=== PATIENT | male | born 1945 | race Caucasian/White ===

== ENCOUNTER → 2024-08-12 | Outpatient (CLI) | payer MEDICARE, BC, SELFPAY ==
[2024-08-12 12:01] LABS: Basophils # (Auto) 0.1 Thou/mm3 (0.0-0.2); Basophils % (Auto) 1 % (0-2.5); Eosinophils # (Auto) 0.2 Thou/mm3 (0.0-0.5); Eosinophils % (Auto) 3 % (0-10); Hematocrit 39.2 % (41.0-53.0); Hemoglobin 13.5 g/dL (13.5-16.0); Immature Granulocytes % (Auto) 0 % (0-0); Immature Granulocytes Auto 0.01 Thou/mm3 (0.00-0.00); Lymphocytes # (Auto) 1.1 Thou/mm3 (1.0-4.8); Lymphocytes % (Auto) 25 % (10-50); Mean Corpuscular HGB Conc 34.4 g/dl (31.0-37.0); Mean Corpuscular Hemoglobin 34.7 pg (25.0-35.0); Mean Corpuscular Volume 101 fL (80-100); Monocytes # (Auto) 0.6 Thou/mm3 (0.0-0.8); Monocytes % (Auto) 14 % (0-12); Neutrophils # (Auto) 2.5 Thou/mm3 (1.8-7.7); Neutrophils % (Auto) 56 % (37-80); Nucleated Red Blood Cell % 0 /100 WBC (0); Platelet Count 149 Thou/mm3 (140-440); RDW Standard Deviation 46.9 fL (35.1-43.9); Red Blood Count 3.89 Miln/mm3 (4.50-5.90); White Blood Count 4.5 Thou/mm3 (3.8-10.6)
[2024-08-12 12:05] LABS: Glucose Estimated Average 111 mg/dL (80-131); Hemoglobin A1C 5.5 % Hgb (4.8-6.0)
[2024-08-12 12:14] LABS: Alanine Aminotransferase 26 U/L (10-49); Albumin, Serum 4.4 gm/dL (3.4-4.8); Albumin/Globulin Ratio 1.6 (1.2-2.2); Alkaline Phosphatase 57 U/L (46-116); Anion Gap 5 (7-16); Aspartate Amino Transferase 27 U/L (0-34); BUN/Creatinine Ratio 18 Ratio (12-20); Bilirubin,Total 0.9 mg/dL (0.3-1.2); Blood Urea Nitrogen 21 mg/dL (9-23); C-Reactive Protein < 0.4 mg/dL (0.0-0.9); Calcium 9.5 mg/dL (8.3-10.6); Calcium (Corrected) 9.5 mg/dL (8.5-10.1); Carbon Dioxide 31.1 mMol/L (20.0-31.0); Cardiac Risk Estimate 2.4 RATIO (4.0-6.7); Chloride 105 mMol/L (98-107); Cholesterol 88 mg/dL (132-200); Creatinine (Component) 1.2 mg/dL (0.6-1.3); Globulin 2.8 gm/dL (2.3-3.5); Glucose 119 mg/dL (74-106); HDL Cholesterol 36 mg/dL (40-60); LDL Cholesterol,Calculated 40 mg/dL (0-130); Osmolality,Calculated 285 (275-295); Potassium 4.8 mMol/L (3.4-5.1); Sodium 141 mMol/L (136-145); Total Protein 7.2 gm/dL (5.7-8.2); Triglycerides 59 mg/dL (30-150); eGFR > 60 See Note
[2024-08-12 12:16] LABS: Sed Rate (ESR) 6 mm/hr (0-20)
[2024-08-12 20:31] LABS: Prostate Specific Antigen 5.62 ng/mL (0-4.00)
== END | disposition home or self-care (01) ==
PROVIDERS: PCP Family Medicine; Referring Provider Family Medicine; Visit Provider Family Medicine
DX: M35.3 Polymyalgia rheumatica (principal); I10 Essential (primary) hypertension; R97.20 Elevated prostate specific antigen [PSA]
CPT/HCPCS: 36415; 80053; 80061; 83036; 84153; 85025; 85652; 86140

== ENCOUNTER → 2024-10-21 | Outpatient (BNVA) | payer MEDICARE, BC, SELFPAY | END | disposition home or self-care (01) | PROVIDERS: PCP Family Medicine; Referring Provider Family Medicine; Visit Provider Urology | DX: N40.1 Benign prostatic hyperplasia with lower urinary tract symptoms (principal); N13.8 Other obstructive and reflux uropathy; R97.20 Elevated prostate specific antigen [PSA]; I48.19 Other persistent atrial fibrillation; I10 Essential (primary) hypertension; I63.9 Cerebral infarction, unspecified; R73.9 Hyperglycemia, unspecified; M35.3 Polymyalgia rheumatica; Z87.440 Personal history of urinary (tract) infections; E66.9 Obesity, unspecified; Z68.27 Body mass index [BMI] 27.0-27.9, adult; F17.290 Nicotine dependence, other tobacco product, uncomplicated | CPT/HCPCS: 81003; 99212; G0463 ==

== ENCOUNTER → 2025-01-06 | Outpatient (CLI) | payer MEDICARE, BC, SELFPAY ==
[2025-01-10 15:35] LABS: PSA, Total 5.8 ng/mL (< OR = 4.0)
[2025-01-11 07:08] LABS: PSA, % Free 16 % (calc) (>25)
== END | disposition home or self-care (01) ==
LOC: COPL 07:16
PROVIDERS: PCP Family Medicine; Referring Provider Family Medicine; Visit Provider Urology
DX: R97.20 Elevated prostate specific antigen [PSA] (principal)
CPT/HCPCS: 36415; 84153; 84154

== ENCOUNTER → 2025-01-18 | Outpatient (BNVA) | payer MEDICARE, BC, SELFPAY | END | disposition home or self-care (01) | PROVIDERS: PCP Family Medicine; Referring Provider Family Medicine; Visit Provider Urology | DX: N40.1 Benign prostatic hyperplasia with lower urinary tract symptoms (principal); N13.8 Other obstructive and reflux uropathy; R97.20 Elevated prostate specific antigen [PSA]; I48.19 Other persistent atrial fibrillation; I10 Essential (primary) hypertension; I63.9 Cerebral infarction, unspecified; M35.3 Polymyalgia rheumatica; F17.210 Nicotine dependence, cigarettes, uncomplicated; E11.9 Type 2 diabetes mellitus without complications | CPT/HCPCS: 81003; 99212; G0463 ==

== ENCOUNTER → 2025-02-04 | Outpatient (BNVA) | payer MEDICARE, SELFPAY | END | disposition home or self-care (01) | PROVIDERS: PCP Family Medicine; Referring Provider Family Medicine; Visit Provider Physician Assistant | DX: N40.0 Benign prostatic hyperplasia without lower urinary tract symptoms (principal); R97.20 Elevated prostate specific antigen [PSA]; I10 Essential (primary) hypertension; I48.91 Unspecified atrial fibrillation; E11.9 Type 2 diabetes mellitus without complications; Z86.73 Personal history of transient ischemic attack (TIA), and cerebral infarction without residual deficits; F17.210 Nicotine dependence, cigarettes, uncomplicated | CPT/HCPCS: 99212; G0463 ==

== ENCOUNTER 2025-03-05 12:26 | Inpatient (IN) | payer MEDICARE, SELFPAY ==
[2025-03-05] VITALS (15 sets, daily range): BP systolic 95–140; BP diastolic 52–88; PULSE 85–118; RESP 15–100; TEMP 36.5–37.1; O2SAT 96–100; BMI 27.7
--- NOTE | 2025-03-05 12:50 | PC.NURSE ---
PATIENT ARRIVED ED VIA EMS SECONDARY TO WEAKNESS. PER FAMILY PATIENT WENT TO BED LAST NIGHT WITH NO COMPLAINTS, AT APPROX 8AM THIS MORNING PATIENT WAS FOUND IN BED INCONTINENT AND NOT ABLE TO WALK DUE TO WEAKNESS. UPON ARRIVAL TO ED PATIENT ABLE TO ANSWER APPROPRIATE QUESTIONS AND STATES HE FEELS TIRED. PATIENT IS SLOW TO RESPOND TO INSTRUCTIONS. AT BEDSIDE STATES PATIENT IS NOT HIS NORMAL SELF . DR. GRANT AT BEDSIDE TO PERFORM ASSESSMENT. STOKE ALERT CALLED AND PATIENT TAKEN TO CT VIA GURNEY WITH NEURO CART. NEUROLOGIST CONDUCTED EXAM WHILE IN CT AND DEFERRED R/O STROKE DUE TO PATIENT ABILITY TO FOLLOW INSTRUCTIONS WITH SOME DIFFICULTY. PATIENT TAKEN BACK TO ED. FAMILY REMAINS AT BEDSIDE. WILL CONTINUE TO MONITOR
--- NOTE | 2025-03-05 13:06 | XR_ITS ---
Examination: AP chest single view Technique one AP portable semiupright chest single view Date and time: March 05, 2025 1333 hours Comparison March 19, 2023 INDICATIONS: Focal neurologic deficit, stroke alert today FINDINGS: Mild prominence of ventricle. No aspiration pneumonia. No pulmonary edema. Old fracture left seventh rib posteriorly IMPRESSION: Negative for aspiration pneumonia
--- NOTE | 2025-03-05 13:06 | XR_ITS ---
Examination: CT brain head without contrast. 2-D sagittal coronal reconstructions Date and time of exam:March 05, 2025 1317 hours Comparison April 29, 2018 INDICATIONS: Stroke alert, onset focal neurologic deficit slurred speech generalized body weakness beginning 8:00 AM this morning CTDI: vol (mGy):53 DLP: (mGycm):1099 Technique: Multiple CT axial sections of the brain have been obtained, 5 mm slice thickness. Contrast has not been administered. 2-D sagittal, coronal reconstructions have been obtained Low dose protocols were performed. One or more of the following dose reduction techniques were used; automated exposure control, adjustment of the mA and/or KV according to patient size, use of iterative reconstruction technique. Findings: No significant ventricular enlargement. Intra-axial or extra-axial hemorrhage density is not seen. No mass effect or midline shift Basal cisterns are not remarkable. Fourth ventricle is midline. Cranial vault intact. Impression: Negative for acute hemorrhage, mass effect or midline shift
--- NOTE | 2025-03-05 13:06 | EKG_ITS ---
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: : 1945 Requested By: Anup Christopher Order Number: [id number] Reading MD: Anup Christopher Measurements Intervals [place] Rate: 106 P: MS: QRS: 39 QRSD: 92 T: -84 QT: 307 QTc: 408 Interpretive Statements ATRIAL FIBRILLATION WITH RAPID VENTRICULAR RESPONSE WITH ABERRANT CONDUCTION OR VENTRICULAR PREMATURE COMPLEXES ST DEVIATION AND MODERATE T-WAVE ABNORMALITY, CONSIDER INFERIOR ISCHEMIA [-0.1+ mV T-WAVE IN II/aVF] Compared to ECG 05/02/2018 09:51:33 Ventricular premature complex(es) now present Aberrant conduction of supraventricular beat(s) now present Possible ischemia now present T-wave abnormality still present /store/S0/[id number]/ecg/[id number].pdf
--- NOTE | 2025-03-05 13:11 | PC.NURSE ---
STROKE ALERT @ 0668 telecart activated @2073 case# [id number]
--- NOTE | 2025-03-05 13:20 | PD.EDADULT ---
ED General RME/HPI General Chief complaint: Altered Mental Status Stated complaint: WEAKNESS Time Seen by Provider: 03/05/25 13:06 Arrival date/time: 03/05/25 12:26 RME / HPI RME / HPI narrative: DR. CHRISTOPHER MAIN ED EVALUATION: 79-year-old male with past medical history of atrial fibrillation (on Xarelto), hypertension, and polymyalgia rheumatica (on prednisone) presents with generalized weakness and difficulty speaking. Denies falls, injuries, fever, or loss of consciousness. Related Data Home Medications ?Medication ?Instructions ?Recorded ?Confirmed benazepril 40 mg tablet 40 mg PO QDAY 04/30/18 03/05/25 clonidine HCl 0.2 mg tablet 0.2 mg PO TID 04/30/18 03/05/25 rivaroxaban 15 mg tablet (Xarelto) 15 mg PO QDAY 04/30/18 03/05/25 digoxin 125 mcg (0.125 mg) tablet 0.125 mg PO QDAY 03/05/25 03/05/25 furosemide 20 mg tablet 20 mg PO QDAY 03/05/25 03/05/25 Previous Rx's ?Medication ?Instructions ?Recorded atorvastatin 40 mg tablet 40 mg PO HS #30 tabs 05/04/18 Allergies Allergy/AdvReac Type Severity Reaction Status Date / Time No Known Allergies Allergy Verified 02/04/25 10:02 Review of Systems Review of Systems Systems Reviewed: All systems reviewed, normal except as documented Past Medical History Past Medical History NEUROLOGIC: Positive Neurological Disorders CARDIAC: Positive Atrial Fibrillation and Hypertension ENDOCRINE: Positive Diabetes Mellitus Type 2 Social History SMOKING STATUS: Current some day smoker SUBSTANCE USE: does not use ED Exam Narrative Physical exam: Physical Exam: General: The vital signs were reviewed. Patient appears pale diffusely weak no obvious focal deficits responds to questions in a very slow fashion. Patient has generalized flattening of his affect. in no apparent distress and appears healthy with a patent airway, no respiratory distress and has no apparent circulatory problems. Head & Scalp: Normocephalic, atraumatic. Face: Appears normal and is without lesions, deformity. Ears: Left external pinna appears normal. Right external pinna appears normal. Eyes: The sclera is anicteric. No obvious photophobia. The Left and Right Orbit/Lid/Conjunctiva appears normal without swelling, discoloration or injection. Nose: The nose is without deformity, discharge or tenderness; Throat: Appears normal. The mucous membranes are pink and moist without exudates, redness or mass seen. The tongue appears normal. Neck: The neck is supple and no apparent mass or adenopathy. Chest: The chest wall is normal in size and symmetry and has no chest wall tenderness or crepitus. The patient displays normal ventilator effort without retractions, accessory muscle use and has adequate air movement bilaterally with no wheezes and no rales. Cardiovascular: Regular rate and rhythm; No murmurs, rubs, or gallops; Gastrointestinal: The abdomen appears normal. No obvious hernias or mass. The abdomen is soft and benign, non-distended, with no pain, no guarding and no rebound tenderness. Bowel sounds are present and normal sounding. No CVA tenderness. Rectal: Rectal exam, nurse interior paneler present at bedside, shows black stools, guaiac positive. Genitourinary: Back/Spine: Normal inspection Extremities/Musculoskeletal/lymphatic: The bilateral upper and lower extremities are warm. There is no evidence of arterial insufficiency. There is no evidence of venous insufficiency/edema. The patient spontaneously moves bilateral upper and lower extremities slowly with no obvious focal deficit. There is no apparent, injury or trauma. Skin: The skin is warm, dry and intact. No rashes. No petechia. No purpura. No abnormal bruising. The color is appropriate with no cyanosis. Mental status/Psychiatric: Mental status is appropriate for age. The patient has no apparent delusions, visual hallucinations, no apparent audible hallucinations. The patient has no apparent suicidal thoughts/ideation and no apparent homicidal thoughts/ideation. Neurological: The patient is awake, alert, interactive, cordial, cooperative and is oriented to name and situation. The patient follows commands and answers historical question with no impairment. There is no visual disturbance apparent. The pupils are equal and reactive bilaterally with normal eye movements and no diplopia The bilateral upper and lower extremities have normal strength, normal range of motion and normal functioning. The gait, station and balance not tested due to acute Course Course Course Narrative: 1306: Stroke alert initiated. Orders made at this time are congruent stroke protocol. Quality Measures none Orders Category Date Time Status Bedside Blood Glucose NOW Care 03/05/25 13:06 Active Aerial Applicator Pilot NOW Care 03/05/25 13:06 Active Continuous Pulse Oximetry NOW Care 03/05/25 13:06 Completed EKG (ED ONLY) *Do not use* NOW Care 03/05/25 13:06 Completed In and Out Catheter NEEDED Care 03/05/25 13:06 Active Insert IV NOW Care 03/05/25 13:06 Completed Miscellaneous Nursing Order NOW Care 03/05/25 14:39 Active NIH Stroke Scale now Care 03/05/25 13:06 Active NPO NOW Care 03/05/25 13:06 Active Neuro Check Q15MIN Care 03/05/25 13:06 Completed Nurse Swallow Screen x1 Care 03/05/25 13:06 Active Transfuse,blood/blood products NOW Care 03/05/25 14:28 Active Consult to Gastroenterology Stat Cons 03/05/25 14:37 Ordered Consult to Neurology / Tele-Neurology Routine Cons 03/05/25 13:[address] angio stroke protocol Stat Exams 03/05/25 13:[address] stroke protocol Stat Exams 03/05/25 13:06 Completed EKG (ED Only) Stat Exams 03/05/25 13:06 Draft XR chest 1V portable Stat Exams 03/05/25 13:06 Completed Blood Culture (Lab) Stat Lab 03/05/25 13:53 Received CBC Stat Lab 03/05/25 13:17 Completed Comprehensive Metabolic Panel Stat Lab 03/05/25 13:17 Completed Drug Screen,Urine Stat Lab 03/05/25 13:06 Ordered HCG Titer if Positive Stat Lab 03/05/25 13:17 Completed Lactate (Lactic Acid) Stat Lab 03/05/25 13:17 Completed Magnesium Stat Lab 03/05/25 13:17 Completed Partial Thromboplastin Time Stat Lab 03/05/25 13:17 Completed Path Review Blood Smear Stat Lab 03/05/25 13:17 Completed Prothrombin Time with INR Stat Lab 03/05/25 13:17 Completed Red Blood Cells Stat Lab 03/05/25 14:01 Results Troponin I Stat Lab 03/05/25 13:17 Completed Type and Screen Stat Lab 03/05/25 14:01 Results Urinalysis Stat Lab 03/05/25 13:06 Ordered Urine Culture Stat Lab 03/05/25 13:06 Ordered Venous Blood Gas Stat Lab 03/05/25 13:17 Completed Ondansetron Inj [Zofran Inj] Med 03/05/25 13:06 Active 4 mg IVP Q4HR PRN Pantoprazole Inj [Protonix Inj] Med 03/05/25 14:36 Discontinued 40 mg IVP X1 ONE Phytonadione Inj [Vitamin K Inj] Med 03/05/25 14:28 Discontinued 10 mg SC X1 ONE Sodium Chloride 0.9% 1000 ml [Ns] 1,000 ml Med 03/05/25 13:15 Active IV Q10H Oxygen Delivery NOW RT 03/05/25 13:06 Active Vital Signs Vital signs: Vital Signs Temperature 97.7 F 03/05/25 12:31 Pulse Rate 96 03/05/25 12:31 Respiratory Rate 16 03/05/25 12:31 Blood Pressure 95/63 03/05/25 12:31 Pulse Oximetry (%) 98 03/05/25 12:31 Oxygen Delivery Method Room Air 03/05/25 12:31 Discharge Plan Plan Patient Disposition: Admit Acute Care w/in Hospital Discharge Disposition comment: Hospitalist admit Dr. Bauer to consult Problem List Clinical Impression: Altered mental status, Severe anemia, GI (gastrointestinal bleed), Acute kidney injury, Acute prerenal azotemia MDM Narrative [facility] hospital course: I, Ana Gray, am scribing for and in the presence of Dr. Christopher. Patient has acute onset of some neurological symptoms but the symptoms appear to be global and stroke alert was called with the neurologist agreed. Soon after that the hemoglobin came back at 5.7 and note 7 months ago was 13.5 so have a serious anemia at this time. PT is 14.6 INR is 1.4 also on his CMP he is got a BUN 85 creatinine 2.1 consistent with acute kidney injury or renal failure he is also very dry I was mildly at 313. Chest x-ray came back negative no infiltrates no effusion normal head CT was negative. Patient says a severe anemia etiology unclear there is no history of any blood loss or blood in the stool per family or patient Clinical Information Provided by patient and EMS Medical Records [facility] and EMS Meds/Rx Considered, not Ordered None Labs/Rad/Tests considered, not Ordered None Chronic Illness/Social Conditions Add or document further as needed: atrial fibrillation (on Xarelto), hypertension, and polymyalgia rheumatica (on prednisone) EKG EKG Interpretation narrative: My interpretation: EKG performed at 1331 hours, atrial fibrillation, rate 106, no STEMI Lab Interpretation Labs: see narrative above Imaging Imaging interpretation: see narrative above Radiology reports / interpretation(s): Procedure(s): XR chest 1V portable Accession Number(s): [id number] cc: Anup Christopher MD; Emeterio Perla MD~ Examination: AP chest single view Technique one AP portable semiupright chest single view Date and time: March 05, 2025 1333 hours Comparison March 19, 2023 INDICATIONS: Focal neurologic deficit, stroke alert today FINDINGS: Mild prominence of ventricle. No aspiration pneumonia. No pulmonary edema. Old fracture left seventh rib posteriorly IMPRESSION: Negative for aspiration pneumonia Dictated By: Emeterio Perla MD Procedure(s): CT stroke protocol Accession Number(s): [id number] cc: Anup Christopher MD; Emeterio Perla MD~ Examination: CT brain head without contrast. 2-D sagittal coronal reconstructions Date and time of exam:March 05, 2025 1317 hours Comparison April 29, 2018 INDICATIONS: Stroke alert, onset focal neurologic deficit slurred speech generalized body weakness beginning 8:00 AM this morning CTDI: vol (mGy):53 DLP: (mGycm):1099 Technique: Multiple CT axial sections of the brain have been obtained, 5 mm slice thickness. Contrast has not been administered. 2-D sagittal, coronal reconstructions have been obtained Low dose protocols were performed. One or more of the following dose reduction techniques were used; automated exposure control, adjustment of the mA and/or KV according to patient size, use of iterative reconstruction technique. Findings: No significant ventricular enlargement. Intra-axial or extra-axial hemorrhage density is not seen. No mass effect or midline shift Basal cisterns are not remarkable. Fourth ventricle is midline. Cranial vault intact. Impression: Negative for acute hemorrhage, mass effect or midline shift Dictated By: Emeterio Perla MD Medication Administration(s) Medication Administration History Acetaminophen (Acetaminophen 325 Mg Tablet) 650 mg PO Q6H PRN PRN Reason: Fever >101.5 or pain (1-3) Stop: 04/04/25 15:27 Atorvastatin Calcium (Atorvastatin Calcium 20 Mg Tablet) 40 mg PO HS CLAUDE Stop: 04/04/25 20:59 Digoxin (Digoxin 0.125 Mg Tablet) 0.125 mg PO QDAY CLAUDE Stop: 04/04/25 15:44 Sodium Chloride (Ns) 1,000 mls @ 100 mls/hr IV Q10H CLAUDE Stop: 04/04/25 13:14 Last Admin: 03/05/25 14:09 Dose: 100 mls/hr Documented By: PATRICK Pantoprazole Sodium (Protonix/Ns 80mg Iv Premix) 80 mg in 100 mls @ 10 mls/hr IV Q10H CLAUDE Stop: 03/08/25 13:35 Last Admin: 03/05/25 15:44 Dose: 10 mls/hr Documented By: PATIRCK Ondansetron HCl (Ondansetron Inj 2 Mg/Ml Inj 2 Ml) 4 mg IVP Q4HR PRN PRN Reason: NAUSEA OR VOMITING Stop: 04/04/25 13:05 Discontinued Medications Pantoprazole Sodium (Pantoprazole Inj 40 Mg Vial) 40 mg IVP X1 ONE Stop: 03/05/25 14:37 Last Admin: 03/05/25 15:14 Dose: 40 mg Documented By: PATRICK Phytonadione (Phytonadione Inj 10 Mg/Ml Amp) 10 mg SC X1 ONE Stop: 03/05/25 14:29 Last Admin: 03/05/25 15:41 Dose: Not Given Documented By: PATRICK Non-Admin Reason: Cancelled by Provider Consultations/Discussions re: Management Consult #1: Date/time: 03/05/25 2:51 pm Physician, specialty, service, details: Discussed test HPI, PMHx, lab, radiology results and/or management with Dr. Bauer. Will consult an admission to the hospitalist. Consult #2: Date/time: 03/05/25 2:57 pm Physician, specialty, service, details: Discussed test HPI, PMHx, lab, radiology results and/or management with resident working with the hospitalist. Will admit for further evaluation and management. Accepts patient for admission. Diagnosis Differential diagnosis: ischemic stroke, transient ischemic attack, intracranial hemorrhage Most likely dx, and/or detailed dx discussion: AMS Severe anemia GI bleed VANNA Acute prerenal azotemia Dispositon Disposition: Admit
[2025-03-05 13:27] LABS: Lactate (Lactic Acid) 1.4 mMol/L (0.4-2.0)
[2025-03-05 13:28] LABS: Base Excess, Venous -3 (-3-3); O2 Saturation, Venous 55 % (96-97); PCO2, Venous 36 mmHg (36-56); PO2, Venous 31 mmHg (15-58); pH, Venous 7.39 (7.33-7.66)
[2025-03-05 13:35] LABS: Basophils # (Auto) 0.0 Thou/mm3 (0.0-0.2); Basophils % (Auto) 1 % (0-2.5); Eosinophils # (Auto) 0.0 Thou/mm3 (0.0-0.5); Eosinophils % (Auto) 1 % (0-10); Immature Granulocytes Auto 0.09 Thou/mm3 (0.00-0.00); Lymphocytes # (Auto) 0.8 Thou/mm3 (1.0-4.8); Lymphocytes % (Auto) 14 % (10-50); Mean Corpuscular HGB Conc 33.1 g/dl (31.0-37.0); Mean Corpuscular Hemoglobin 36.1 pg (25.0-35.0); Mean Corpuscular Volume 109 fL (80-100); Monocytes # (Auto) 0.6 Thou/mm3 (0.0-0.8); Monocytes % (Auto) 11 % (0-12); Neutrophils # (Auto) 4.2 Thou/mm3 (1.8-7.7); Neutrophils % (Auto) 73 % (37-80); Nucleated Red Blood Cell # 0.00 Thou/mm3 (0.00-0.00); Nucleated Red Blood Cell % 0 /100 WBC (0); Platelet Count 174 Thou/mm3 (140-440); RDW Standard Deviation 63.5 fL (35.1-43.9); Red Blood Count 1.58 Miln/mm3 (4.50-5.90); White Blood Count 5.8 Thou/mm3 (3.8-10.6)
[2025-03-05 13:37] LABS: Hematocrit 17.2 % (41.0-53.0); Hemoglobin 5.7 g/dL (13.5-16.0)
--- NOTE | 2025-03-05 13:41 | ESCONSULT_ITS ---
Tele Neuro Consultation Consultation Date 03/05/25 Most Recent Vital Signs Last Vital Signs Temp 97.7 F 03/05/25 12:31 Pulse 96 03/05/25 12:31 Resp 16 03/05/25 12:31 BP 95/63 03/05/25 12:31 Pulse Ox 98 03/05/25 12:31 O2 Del Method Room Air 03/05/25 12:31 Consultation Narrative [facility] Tele[facility]urology Consult Services Patient Name:???Devan Rios Date of :???1945 Identification Number:??? Date of Service:???03/05/2025 13:10:03 Diagnosis:?G93.41 - Encephalopathy Metabolic Impression: ?Altered mentation with impaired attention, disorientation, and generalized weakness in the setting of hypotension and tachycardia. There are no focal neurological deficits to suggest acute stroke, and he is both outside IV thrombolysis time window and on Xarelto, therefore would not be a candidate for IV thrombolysis. Clinical presentation is consistent with metabolic encephalopathy. ? ?Recommendations: ?- Metabolic workup, sepsis workup per ED/primary team ?- If symptoms do not improve with correction of any underlying infection/metabolic derangements would consider MRI brain and EEG. ?- Reasonable to continue Xarelto if there are no medical contraindications Our recommendations are outlined below. Recommendations: ? Stroke/Telemetry Floor ? Neuro Checks ? Bedside Swallow Eval ? DVT Prophylaxis ? IV Fluids, Normal Saline ? Head of Bed 30 Degrees ? Euglycemia and Avoid Hyperthermia (PRN Acetaminophen) Sign Out: ? Discussed with Emergency Department Provider Advanced Imaging: Advanced Imaging Deferred because: Stroke not suspected with clinical presentation and exam Metrics: Last Known Well: Unknown Dispatch Time: 03/05/2025 13:10:03 Arrival Time: 03/05/2025 12:26:00 Initial Response Time: 03/05/2025 13:12:40Symptoms: weakness, confusion. Initial patient interaction: 03/05/2025 13:18:52 NIHSS Assessment Completed: 03/05/2025 13:24:58Patient is not a candidate for Thrombolytic. Thrombolytic Medical Decision: 03/05/2025 13:25:01Patient was not deemed candidate for Thrombolytic because of following reasons: LKW outside 4.5 hr window. . Use of NOAC in last 48 hrs. . other diagnosis suspected encephalopathy. CT Head: I personally reviewed all the CT images that were available to me and it showed: no acute pathology Primary Provider Notified of Diagnostic Impression and Management Plan on: 03/05/2025 13:32:26 History of Present Illness:Patient is a 79 year old Male. Patient was brought by EMS for symptoms of weakness, confusion. Patient is an 79 year old man presenting via EMS due to generalized weakness and confusion with urinary incontinence today. He was found by family with these symptoms this morning at around 8am; he was last known to be at baseline yesterday, time unclear. History is obtained from EMR given patient's impaired attention. Past Medical History: ?Hypertension ?Hyperlipidemia ?Atrial Fibrillation ?There is no history of Diabetes Mellitus ?There is no history of Seizures Other PMH:? TIA, polymyalgia rheumatica, alcohol use disorder, BPH with urinary obstruction Medications: Anticoagulant use:??Yes?Xarelto Antiplatelet use:?Unknown Reviewed EMR for current medications Other Medications Pertinent To Assessment Include: atorvastatin, benazepril, clonidine, diltiazem, prednisone 7.5mg Allergies:? NKDA Social History: Smoking: Yes Family History: There is no family history of premature cerebrovascular disease pertinent to this consultation ROS : 14 Points Review of Systems was performed and was negative except mentioned in HPI. Past Surgical History: There Is No Surgical History Contributory To Today?s Visit NIHSS may not be reliable due to: impaired attention, hard of hearing Examination: BP(95/63),?Pulse(96),?Blood Glucose(193) 1A: Level of Consciousness - Alert; keenly responsive?+ 0 1B: Ask Month and Age - Could Not Answer Either Question Correctly?+ 2 1C: Blink Eyes & Squeeze Hands - Performs Both Tasks?+ 0 2: Test Horizontal Extraocular Movements - Normal?+ 0 3: Test Visual Tony - No Visual Loss?+ 0 4: Test Facial Palsy (Use Grimace if Obtunded) - Normal symmetry?+ 0 5A: Test Left Arm Motor Drift - No Drift for 10 Seconds?+ 0 5B: Test Right Arm Motor Drift - No Drift for 10 Seconds?+ 0 6A: Test Left Leg Motor Drift - Drift, but doesn't hit bed?+ 1 6B: Test Right Leg Motor Drift - Drift, but doesn't hit bed?+ 1 7: Test Limb Ataxia (FNF/Heel-Ferrell) - Does Not Understand?+ 0 8: Test Sensation - Normal; No sensory loss?+ 0 9: Test Language/Aphasia - Mild-Moderate Aphasia: Some Obvious Changes, Without Significant Limitation?+ 1 10: Test Dysarthria - Mild-Moderate Dysarthria: Slurring but can be understood?+ 1 11: Test Extinction/Inattention - No abnormality?+ 0 NIHSS Score:?6 NIHSS Free Text :?mild naming difficulty which appears to be related to impaired attention rather than true aphasia Pre-Morbid Modified Carson Scale:Unable to assess Spoke with :?Dr. Christopher This consult was conducted in real time using interactive audio and video technology. Patient was informed of the technology being used for this visit and agreed to proceed. Patient located in hospital and provider located at home/office setting. Patient is being evaluated for possible acute neurologic impairment and high probability of imminent or life-threatening deterioration. I spent total of 32 minutes providing care to this patient, including time for face to face visit via telemedicine, review of medical records, imaging studies and discussion of findings with providers, the patient and/or family. Dr Luz Hickey [facility] For Inpatient follow-up with [facility] physician please call [facility] at . As we are not an outpatient service for any post hospital discharge needs please contact the hospital for assistance. If you have any questions for the [facility] physicians or need to reconsult for clinical or diagnostic changes please contact us via [facility] at . Signature :?Luz Hickey
[2025-03-05 13:42] LABS: HCG Titer if Positive Negative
[2025-03-05 13:44] LABS: INR 1.4 (0.9-1.3); Partial Thromboplastin Time 27.4 Seconds (22.0-36.0); Prothrombin Time 14.6 Seconds (9.0-12.2)
[2025-03-05 13:59] LABS: Alanine Aminotransferase 13 U/L (10-49); Albumin, Serum 3.3 gm/dL (3.4-4.8); Albumin/Globulin Ratio 1.7 (1.2-2.2); Alkaline Phosphatase 33 U/L (46-116); Anion Gap 10 (7-16); Aspartate Amino Transferase 18 U/L (0-34); BUN/Creatinine Ratio 40 Ratio (12-20); Bilirubin,Total 0.4 mg/dL (0.3-1.2); Blood Urea Nitrogen 85 mg/dL (9-23); Calcium 8.2 mg/dL (8.3-10.6); Calcium (Corrected) 8.8 mg/dL (8.5-10.1); Carbon Dioxide 21.9 mMol/L (20.0-31.0); Chloride 110 mMol/L (98-107); Creatinine (Component) 2.1 mg/dL (0.6-1.3); Estimated Creatinine Clearance 31.7 mL/min (>60); Globulin 1.9 gm/dL (2.3-3.5); Glucose 189 mg/dL (74-106); Magnesium 2.0 mg/dL (1.6-2.6); Osmolality,Calculated 313 (275-295); Potassium 4.2 mMol/L (3.4-5.1); Sodium 142 mMol/L (136-145); Total Protein 5.2 gm/dL (5.7-8.2); Troponin I < 0.020 ng/mL (0.0-0.045); eGFR 31 See Note
[2025-03-05] MEDS: SODIUM CHLORIDE 0.9% 1000 ML 1,000 ML 100 ML IV (14:09)
[2025-03-05 14:57] LABS: Path Review Blood Smear Sent to Pathologist
[2025-03-05] MEDS: PANTOPRAZOLE/NS 80MG IV PREMIX 80 MG/100 ML BAG 10 MG IV ×2 (15:44→23:55)
--- NOTE | 2025-03-05 15:44 | ESHP_ITS ---
<Statement entered by Nathan Ross MD - 03/09/25 14:37> I reviewed above note and agree with findings and plans. I have also personally examined the patient with medicine team and went over assessment and plan with medical team including physician/internist and resident physician. <Statement entered by Jessica Kelly MD - 03/05/25 18:18> Patient was seen and examined at bedside. I agree on the assessment and plan on this note as documented by resident Jhon Levine PGY1. Mr. Rios is a 79-year-old male with past medical history of atrial fibrillation on Xarelto, polymyalgia rheumatica on adalimumab, hypertension, ?heart failure and hyperlipidemia who presented to [facility] emergency department with a chief complaint of generalized weakness and inability to walk, due to patient's chief complaint stroke alert was initiated in the ED, CT scan of the head was negative for acute findings, teleneurology recommended metabolic workup, no MRI indicated for now, no recommendations for aspirin or plavix. Patient on further workup in the emergency department found to have hemoglobin 5.7 otherwise patient is hypotensive and tachycardic in ED, ordered two 18G platelets to be placed bilateral upper extremities, 2 units PRBC ordered by ED physician, patient was also given 1 L maintenance fluid, on evaluation patient was normotensive, heart rate in 80s, no concern of acute hypovolemic or hemorrhagic shock. Otherwise patient did complain and endorse dark stools, is on Xarelto for atrial fibrillation likely has upper GI bleed secondary to ulceration, GI was consulted, started on Protonix drip, we will start patient on clear liquid diet, pending GI evaluation. Called patient's obstetrics gynecology physician Dr. Pantoja, per Dr. Pantoja patient on digoxin Friday and Friday, we will also obtain metabolic encephalopathy workup ordered vitamin B12, folic acid, urine did have rare bacteria will follow cultures, digoxin level. Will hold home antihypertensive in setting of GI bleed. There is questionable history of congestive heart failure patient does take Lasix at home, continue strict intake and output, daily weight and fluid restriction for now. Disposition telemetry, GI bleed workup. Case discussed with attending Dr. Cody Kelly MD PGY-2 Documentation for date of: 03/05/25 HPI History of Present Illness Chief complaint: Generalized weakness History of present illness: Mr. Rios is an 79-year-old male with a history of A-fib on Xarelto, hypertension, and polymyalgia rheumatica who presents to [facility] ED on 03/05 for generalized weakness and inability to walk. The patient was admitted for GI bleed. The patient was significantly slow to respond and tired, so much of history was taken from spouse at bedside. According to the patient, he was having dark tarry stools for the past 2 to 3 weeks, did not notice any increased fatigue until today. According to the patient's , the patient was having difficulty waking up today. Normally he wakes himself up and takes his medication by himself, but today the patient's had to force the patient awake. When the patient was awake, he was very slow to respond and very fatigued. This prompted the to call an ambulance. Prior today, the patient's did not notice any increased fatigue compared to usual. He does sometimes have fatigue in the evening, but this is not new and the patient is usually fine in the morning. Patient is fatigued, but arousable and oriented to person and place. Patient has chills, but denies fever, shortness of breath, chest pain, abdominal pain, dysuria. ED course: Patient brought to ED with initially stable vitals. Blood pressure was soft at 95/63. Patient did have brief period of tachycardia ranging from 110-118. Due to critical concern for altered mental status and patient's history of atrial fibrillation, code stroke was activated and neurology was consulted. CT head was negative for acute findings. Teleneurology consult recommended metabolic workup due to clinical presentation consistent with metabolic encephalopathy. Labs resulted with RBC 1.58, hemoglobin 5.7, hematocrit 17.2 PT 14.6, INR 1.4, BUN 85, creatinine 2.1, GFR 31, and troponin less than 0.020. 2 units of blood ordered for transfusion. Past Surgical History: N/A Current Medication(s): - Atorvastatin 40mg HS - Xarelto 15mg daily - Furosemide 20mg daily - Benazepril 40mg daily - Digoxin 0.125mg MWF (confirmed with patient's obstetrics gynecology physician Dr. Colon) - Clonidine 0.2mg TID - Humira 40mg 1 pen per every other week - Super C 900mg daily? - Vitamin D3 25mcg daily? - Zinc 11mg daily? - Magnesium citrate 250mg 1 tablet HS Allergies (w/ Reactions): NKDA Family History: Father has Alzheimer's disease, otherwise non-contributory Occupation:?[employer] Alcohol Intake:?3-4 glasses of wine per day for many years Tobacco/Vape Use:?Tobacco pipe one time use every night for many years Other Drug Use:?Patient denies Review of Systems Review of Systems Systems Reviewed: All systems reviewed, normal except as documented Exam Vital Signs Temp Pulse Resp BP Pulse Ox O2 Del Method 98.1 F 112 H 16 102/88 H 96 Room Air 03/05/25 13:52 03/05/25 13:52 03/05/25 13:52 03/05/25 13:52 03/05/25 13:52 03/05/25 13:52 Narrative Exam Physical Exam: General: Lethargic, no acute distress. Shivering. Skin: Warm, dry, intact, no obvious rash. Head: Normocephalic, atraumatic. Eye: Normal conjunctiva, PERRL. Throat: Oral mucosa moist. No obvious lesions in oropharynx. Cardiovascular: Regular rate and rhythm, soft systolic murmur, +S1/S2. Respiratory: Lungs are clear to auscultation, respirations unlabored, no crackles, no wheezing. Gastrointestinal: Soft, nontender, non-distended. No guarding or rebound tenderness. Extremities: No edema, no cyanosis, no clubbing. Neuro: No focal deficits observed. Slow to respond, moving all extremities. No overt cerebellar signs/incoordination. Psychiatric: Cooperative, appropriate affect. Results: Labs 03/05/25 13:17 03/05/25 13:17 Labs: Short CBC 03/05/25 Range/Units 13:17 WBC 5.8 (3.8-10.6) Thou/mm3 Hgb 5.7 L* (13.5-16.0) g/dL Hct 17.2 L* (41.0-53.0) % Plt Count 174 (140-440) Thou/mm3 BMP 03/05/25 13:17 Sodium 142 Potassium 4.2 Chloride 110 H Carbon Dioxide 21.9 BUN 85 H Creatinine 2.1 H Glucose 189 H Calcium 8.2 L Cardiac Enzymes 03/05/25 Range/Units 13:17 Troponin I < 0.020 (0.0-0.045) ng/mL Liver Function 03/05/25 Range/Units 13:17 Total Bilirubin 0.4 (0.3-1.2) mg/dL AST 18 (0-34) U/L ALT 13 (10-49) U/L Alkaline Phosphatase 33 L (46-116) U/L Albumin 3.3 L (3.4-4.8) gm/dL ABG Interpretation ABG results: 03/05/25 13:17 VBG pH 7.39 VBG pCO2 36 VBG pO2 31 VBG Base Excess -3 Quality Measures Quality Measures none Advance care planning discussed with:: patient and significant other Medications Home Medications and Allergies Home Medications ?Medication ?Instructions ?Recorded ?Confirmed ?Type benazepril 40 mg tablet 40 mg PO QDAY 04/30/1803/05 History clonidine HCl 0.2 mg tablet 0.2 mg PO TID 04/30/1804/21 History rivaroxaban 15 mg tablet (Xarelto) 15 mg PO QDAY 04/3003/05/25 History digoxin 125 mcg (0.125 mg) tablet 0.125 mg PO QDAY 04/2103/05/25 History furosemide 20 mg tablet 20 mg PO QDAY 03/05/2503/05 History Allergies Allergy/AdvReac Type Severity Reaction Status Date / Time No Known Allergies Allergy Verified 02/04/25 10:02 Visit Medications Acetaminophen (Acetaminophen 325 Mg Tablet) 650 mg PO Q6H PRN PRN Reason: Fever >101.5 or pain (1-3) Stop: 04/04/25 15:27 Atorvastatin Calcium (Atorvastatin Calcium 20 Mg Tablet) 40 mg PO HS CLAUDE Stop: 04/04/25 20:59 Digoxin (Digoxin 0.125 Mg Tablet) 0.125 mg PO QDAY CLAUDE Stop: 04/04/25 15:44 Sodium Chloride (Ns) 1,000 mls @ 100 mls/hr IV Q10H CLAUDE Stop: 04/04/25 13:14 Last Admin: 03/05/25 14:09 Dose: 100 mls/hr Pantoprazole Sodium (Protonix/Ns 80mg Iv Premix) 80 mg in 100 mls @ 10 mls/hr IV Q10H CLAUDE Stop: 03/08/25 13:35 Ondansetron HCl (Ondansetron Inj 2 Mg/Ml Inj 2 Ml) 4 mg IVP Q4HR PRN PRN Reason: NAUSEA OR VOMITING Stop: 04/04/25 13:05 Discontinued Medications Pantoprazole Sodium (Pantoprazole Inj 40 Mg Vial) 40 mg IVP X1 ONE Stop: 03/05/25 14:37 Last Admin: 03/05/25 15:14 Dose: 40 mg Phytonadione (Phytonadione Inj 10 Mg/Ml Amp) 10 mg SC X1 ONE Stop: 03/05/25 14:29 Last Admin: 03/05/25 15:41 Dose: Not Given Assessment & Plan Plan Mr. Rios is an 79-year-old male with a history of A-fib on Xarelto, hypertension, and polymyalgia rheumatica who presents to [facility] ED on 03/05 for generalized weakness and inability to walk. The patient was admitted for GI bleed. #GI bleed, likely upper GI bleed #Symptomatic anemia Patient was brought to ED due to generalized fatigue and difficulty waking on the morning of 03/05. When patient was brought to the ED, his RBC was 1.58, hemoglobin 5.7, and hematocrit was 17.2. The patient endorsed black tarry stools that started about 2 to 3 weeks ago, but has only had this acute weakness on 03/05. ? Protonix drip (03/05--) ? Consulted GI, appreciate recommendations ? 2 units of blood ordered 03/05, repeat H&H ordered after transfusion ? 18-gauge bores ordered if aggressive fluid resuscitation is needed ? Will hold home benazepril, clonidine, furosemide, Xarelto until bleeding has stabilized #CVA workup ddx TIA, CVA, metabolic encephalopathy Patient notably brought to the ED with concerns of potential stroke due to generalized fatigue and difficulty walking that had sudden onset this morning. Patient is oriented to person time and place, but responses much slower than usual. Neurology was consulted, who did not believe that this is an acute stroke. Neurology recommended workup for metabolic encephalopathy. ? Neurochecks every 4 hours ? Bedside swallow eval ? Head of bed 30 degrees ? Ordered digoxin, TSH, free T4, vitamin B12, and folate levels for metabolic workup ? Will continue to monitor, if symptoms do not improve with correction of underlying metabolic derangement, will consider MRI brain and EEG per neurology recommendations #A-fib, on Xarelto and digoxin, rate controlled Patient has a history of atrial fibrillation and sees obstetrics gynecology physician Dr. Colon for management. Patient is currently on Xarelto and digoxin. Asked pharmacy about digoxin dosing and they confirmed 0.125 mg daily while patient's family states that the patient takes 0.125 mg Friday and Friday. Contacted Dr. Colon for confirmation, and he stated that the patient was okay taking 0.125 mg Friday. CHADS-VASC score 4 (stroke risk 4.8% per year) HAS-BLED score 3 (bleed risk 5.8%, patient is at high risk for major bleeding) ? Will hold home Xarelto due to current GI bleed ? Will restart home digoxin on Friday #Suspected VANNA, likely prerenal In the ED, the patient had a BUN of 85, creatinine of 2.1, and GFR of 31. Patient does not have any known history of CKD. This is likely due to acute loss of blood due to GI bleed, resulting in decreased blood flow to the kidneys, which led to VANNA. This is expected to resolve with resuscitation by blood products. ? Renally dose medications ? Avoid nephrotoxic medications ? Will hold off on IV fluid hydration given significantly decreased H&H on admission ? Will reassess 08/ AM after 2 units of blood given 03/05 in late afternoon #CHF Patient does not have a documented history of CHF, but patient takes furosemide 20 mg p.o. daily at home. Echocardiogram done on 04/30/2018 showed EF of 50% with moderate mitral regurgitation. ? Will hold patient's home furosemide given current GI bleed ? Strict ins and outs ? Daily weights ordered #Primary Hypertension Patient has a history of hypertension. Patient takes benazepril 40 mg daily and clonidine 0.2 mg 3 times daily at home. ? Will hold patient's home antihypertensives given current GI bleed ? Will monitor blood pressure closely DVT Prophylaxis: SCDs GI Prophylaxis: Protonix drip Bowel: N/A Diet: Full liquid, cardiac diet Justin: N/A Lines: Peripheral IV Antibiotics: N/A Code Status: FULL Reason for Hospitalization: GI bleed Other Barriers to Discharge: GI consultation Patient plan of care was discussed with the senior resident Dr. Kelly (PGY-2) and attending physician Dr. Ross. Jhon Levine, PGY1
[2025-03-05 16:16] LABS: Collection Type, Urine Catheter; RBC,Urine 0 /hpf (0-3); Squamous Epithelial Cell,Urine 0 /hpf (0-5); WBC,Urine 0 /hpf (0-5)
[2025-03-05 16:28] LABS: Bacteria,Urine Rare; Bilirubin,Urine Negative (Negative); Blood,Urine Negative (Negative); Clarity,Urine Clear (Clear/Hazy); Color,Urine Lt-Yellow (Lt Yel-Yel); Glucose, Urine Negative (Negative); Hyaline Casts,Urine < 1 /hpf (0-1); Ketones,Urine Negative (Negative); Leukocyte Esterase,Urine Negative (Negative); Nitrite,Urine Negative (Negative); PH,Urine 5.5 (5.0-7.0); Protein,Urine Negative (Neg - Trace); Specific Gravity,Urine 1.015 (1.001-1.035); Urobilinogen,Urine Negative mg/dL (0.0-1.0)
[2025-03-05 16:45] LABS: Amphetamine/Methamp Scrn,U Negative (Negative); Barbiturate Screen,Urine Negative (Negative); Benzodiazepines Screen,Urine Negative (Negative); Benzoylecgonine Screen, Ur Negative (Negative); Fentanyl Screen,Urine Negative (Negative); Opiate Screen,Urine Negative (Negative); THC Screen,Urine Negative (Negative)
--- NOTE | 2025-03-05 16:54 | PD.IMCONS ---
HPI Data of Consult Requesting Physician: Nathan Ross MD Primary Care Provider: Carrie Barakat MD Consult Narrative Reason for consult: Melena H/H 5.7/17.2 History of present illness: 79 years old male evaluated the request of the ER physician as well as internal medicine team For clinical presentation of weakness and inability to walk in the setting of melanotic stools with right residual examination showing melena as well as grossly Hemoccult positive stool Presenting hemoglobin hematocrit 5.7 and 17.2 with a platelet count of 174,000 and a WBC count of 5.8 On 08/12/2024 hemoglobin hematocrit 13.5 and 39.[address] scan of the head is negative Patient has a history of chronic atrial fibrillation on Xarelto and polymyalgia rheumatica taking prednisone and is also on Humira cc:: cc: Nathan Ross MD Review of Systems Review of Systems Systems Reviewed: All systems reviewed, normal except as documented Past Medical History Surgical History OTHER SURGICAL HX: As in the history of present illness Meds Home Medications and Allergies Home Medications ?Medication ?Instructions ?Recorded ?Confirmed ?Type benazepril 40 mg tablet 40 mg PO QDAY 04/30/18 03/05/25 History clonidine HCl 0.2 mg tablet 0.2 mg PO TID 04/30/18 03/05/25 History rivaroxaban 15 mg tablet (Xarelto) 15 mg PO QDAY 04/30/18 03/05/25 History digoxin 125 mcg (0.125 mg) tablet 0.125 mg PO QDAY 03/05/25 03/05/25 History furosemide 20 mg tablet 20 mg PO QDAY 03/05/25 03/05/25 History Allergies Allergy/AdvReac Type Severity Reaction Status Date / Time No Known Allergies Allergy Verified 02/04/25 10:02 Exam Vital Signs Temp Pulse Resp BP Pulse Ox O2 Del Method 98.1 F 90 16 122/81 99 Room Air 03/05/25 13:52 03/05/25 15:53 03/05/25 15:53 03/05/25 15:50 03/05/25 15:50 03/05/25 15:50 Constitutional Comments: Chronically ill-appearing Routine Respiratory Exam Comments: Normal to auscultation Routine Abdominal Exam Comments: Soft nontender Results Labs 03/05/25 13:17 03/05/25 13:17 Labs: Short CBC 03/05/25 Range/Units 13:17 WBC 5.8 (3.8-10.6) Thou/mm3 Hgb 5.7 L* (13.5-16.0) g/dL Hct 17.2 L* (41.0-53.0) % Plt Count 174 (140-440) Thou/mm3 BMP 03/05/25 13:17 Sodium 142 Potassium 4.2 Chloride 110 H Carbon Dioxide 21.9 BUN 85 H Creatinine 2.1 H Glucose 189 H Calcium 8.2 L Cardiac Enzymes 03/05/25 Range/Units 13:17 Troponin I < 0.020 (0.0-0.045) ng/mL Liver Function 03/05/25 Range/Units 13:17 Total Bilirubin 0.4 (0.3-1.2) mg/dL AST 18 (0-34) U/L ALT 13 (10-49) U/L Alkaline Phosphatase 33 L (46-116) U/L Albumin 3.3 L (3.4-4.8) gm/dL Urine 03/05/25 Range/Units 16:04 Urine Color Lt-Yellow (Lt Yel-Yel) Urine Clarity Clear (Clear/Hazy) Urine pH 5.5 (5.0-7.0) Ur Specific [place]bell 1.015 (1.001-1.035) Urine Protein Negative (Neg - Trace) Urine Glucose (UA) Negative (Negative) ABG Interpretation ABG results: 03/05/25 13:17 VBG pH 7.39 VBG pCO2 36 VBG pO2 31 VBG Base Excess -3 Assessment and Plan Additional Assessment & Plan Additional Plan: # Acute posthemorrhagic anemia # melena Plan IV Protonix N.p.o. midnight tonight Agree with a blood transfusion Consent obtained for fiberoptic esophagogastroduodenoscopy with possible therapeutic intervention under intravenous moderate sedation tentatively scheduled for tomorrow Serial CBC Other medical problems include Polymyalgia rheumatica continue prednisone Atrial fibrillation on Xarelto. Xarelto on hold till the upper endoscopy Thank you very much for the opportunity to participate in the care of this patient
--- NOTE | 2025-03-05 20:30 | PC.NURSE ---
Report called to floor nurse MARCO Patton
[2025-03-05] MEDS: ATORVASTATIN CALCIUM 20 MG TABLET 40 MG PO (21:45)
[2025-03-06] VITALS (23 sets, daily range): BP systolic 115–175; BP diastolic 70–104; PULSE 86–152; RESP 12–83; TEMP 36.2–37; O2SAT 96–100
[2025-03-06] MEDS: SODIUM CHLORIDE 0.9% 1000 ML 1,000 ML 100 ML IV ×2 (01:47→13:00)
[2025-03-06 06:19] LABS: Glucose Estimated Average 123 mg/dL (80-131); Hemoglobin A1C 5.9 % Hgb (4.8-6.0)
[2025-03-06 06:29] LABS: Basophils # (Auto) 0.0 Thou/mm3 (0.0-0.2); Basophils % (Auto) 1 % (0-2.5); Eosinophils # (Auto) 0.1 Thou/mm3 (0.0-0.5); Eosinophils % (Auto) 1 % (0-10); Hematocrit 21.2 % (41.0-53.0); Immature Granulocytes Auto 0.11 Thou/mm3 (0.00-0.00); Lymphocytes # (Auto) 1.1 Thou/mm3 (1.0-4.8); Lymphocytes % (Auto) 21 % (10-50); Mean Corpuscular HGB Conc 33.0 g/dl (31.0-37.0); Mean Corpuscular Hemoglobin 33.5 pg (25.0-35.0); Mean Corpuscular Volume 101 fL (80-100); Monocytes # (Auto) 0.6 Thou/mm3 (0.0-0.8); Monocytes % (Auto) 12 % (0-12); Neutrophils # (Auto) 3.3 Thou/mm3 (1.8-7.7); Neutrophils % (Auto) 64 % (37-80); Nucleated Red Blood Cell # 0.00 Thou/mm3 (0.00-0.00); Nucleated Red Blood Cell % 0 /100 WBC (0); Platelet Count 139 Thou/mm3 (140-440); RDW Standard Deviation 67.7 fL (35.1-43.9); Red Blood Count 2.09 Miln/mm3 (4.50-5.90); White Blood Count 5.1 Thou/mm3 (3.8-10.6)
[2025-03-06 06:37] LABS: Hemoglobin 7.0 g/dL (13.5-16.0)
[2025-03-06 07:10] LABS: Alanine Aminotransferase 7 U/L (10-49); Albumin, Serum 3.0 gm/dL (3.4-4.8); Albumin/Globulin Ratio 1.6 (1.2-2.2); Alkaline Phosphatase 29 U/L (46-116); Anion Gap 10 (7-16); Aspartate Amino Transferase 13 U/L (0-34); BUN/Creatinine Ratio 33 Ratio (12-20); Bilirubin,Total 0.4 mg/dL (0.3-1.2); Blood Urea Nitrogen 52 mg/dL (9-23); Calcium 8.0 mg/dL (8.3-10.6); Calcium (Corrected) 8.8 mg/dL (8.5-10.1); Carbon Dioxide 19.6 mMol/L (20.0-31.0); Cardiac Risk Estimate 4.1 RATIO (4.0-6.7); Chloride 117 mMol/L (98-107); Cholesterol 58 mg/dL (132-200); Creatinine (Component) 1.6 mg/dL (0.6-1.3); Digoxin 0.7 ng/mL (0.8-2.0); Estimated Creatinine Clearance 41.6 mL/min (>60); Free T4 (Free Thyroxine) 1.00 ng/dL (0.89-1.76); Globulin 1.9 gm/dL (2.3-3.5); Glucose 140 mg/dL (74-106); HDL Cholesterol 14 mg/dL (40-60); LDL Cholesterol,Calculated 11 mg/dL (0-130); Magnesium 1.8 mg/dL (1.6-2.6); Osmolality,Calculated 308 (275-295); Phosphorous 2.5 mg/dL (2.4-5.1); Potassium 4.4 mMol/L (3.4-5.1); Sodium 147 mMol/L (136-145); Thyroid Stimulating Hormone 1.51 uIU/mL (0.55-4.78); Total Protein 4.9 gm/dL (5.7-8.2); Triglycerides 165 mg/dL (30-150); eGFR 43 See Note
--- NOTE | 2025-03-06 08:25 | PD.TNEUROPRO ---
Tele Neuro Progress Note Progress Note Date 03/06/25 [facility] Tele[facility]urology Progress Note Date of Service 03/06/2025 Presentation: Based on previous neurology note(s) : 79 year old man presenting via EMS due to generalized weakness and confusion with urinary incontinence today. He was found by family with these symptoms this morning at around 8am; he was last known to be at baseline yesterday, time unclear. History is obtained from EMR given patient's impaired attention. Interval history: 03/06/2025: had RBC transfusion yesterday. Impression: 1- Atrial Fibrillation 2- altered mental status and generalized weakness in setting of hypotension and tachycardia and severe anemia 3- dark tarry stool Recommendations: (Primary Team to order Controlled Medications) Unless specifically noted I Agree with Impression and Plan from previous Neurology note/consult. 1 - GI bleed workup per primary team 2 - xarelto is on hold while GI bleed workup ongoing 3- if despite hydration and correction of anemia weakness does not improve then it is reasonable to obtain noncontrast brain MRI Neurology will sign off. Reconsult neurology if brain MRI is done and has acute findings. Follow up with outpatient PCP in 2-3 weeks. Please contact [facility] Navigator to reach me if further questions/concerns arise. Examination: Examination done through interactive audio and video telecommunications with the assist of bedside nursing (when available) awake, alert, oriented to self, month, place speech no aphasia Extraocular movements intact face symmetric arms no drift (10s) coordination intact in finger to nose Patient / Family was informed the Neurology Consult would occur via TeleHealth consult by way of interactive audio and video telecommunications and consented to receiving care in this manner. Patient is being evaluated for possible acute neurologic impairment and high probability of imminent or life - threatening deterioration. I spent total of 15 minutes providing care to this patient, including time for face to face visit via telemedicine, review of medical records, imaging studies and discussion of findings with providers, the patient and / or family. Dr Froylan Stanton [facility] For Inpatient follow-up with [facility] physician please call [facility] . This is not an outpatient service. Post hospital discharge, please contact hospital directly. Please do not communicate with [facility] physicians via secure chat. If you have any questions, Please contact [facility]. Please call or reconsult our service if there are any clinical or diagnostic changes. Most Recent Vital Signs Last Vital Signs Temp 97.1 F 03/06/25 08:00 Pulse 86 03/06/25 08:00 Resp 13 03/06/25 08:00 BP 128/81 03/06/25 08:00 Pulse Ox 100 03/06/25 08:00 O2 Del Method Room Air 03/06/25 08:00 Laboratory-Coagulation Panel PT 14.6 Seconds (9.0-12.2) H 03/05/25 13:17 INR 1.4 (0.9-1.3) H 03/05/25 13:17 APTT 27.4 Seconds (22.0-36.0) 03/05/25 13:17
[2025-03-06] MEDS: PANTOPRAZOLE/NS 80MG IV PREMIX 80 MG/100 ML BAG 10 MG IV ×2 (09:39→22:11)
--- NOTE | 2025-03-06 10:08 | ESPR_ITS ---
<Statement entered by Nathan Ross MD - 03/09/25 14:38> I reviewed above note and agree with findings and plans. I have also personally examined the patient with medicine team and went over assessment and plan with medical team including international trade analyst and resident physician. <Statement entered by Yara Winters MD - 03/06/25 16:27> Pt is seen at bedside. Denies any epigastric pain, pt is currently NPO for pending EGD today. Pt states he has been on anticoagulation and taking NSAIDs for a long time. Pt underwent PT evaluation, and recommended home health PT. Will continue to monitor, Hgb post transfusion is stable. Pt denies dizziness, or shortness of breath. On admission, Pt does have VANNA on CKD on admission, improving to baseline. Will continue to monitor. Patient was seen and examined by me personally. I have directly supervised and reviewed documentation by the team resident and agree with its findings. ------- Plan of care was discussed with the attending, Dr. Cody Winters, PGY-2 Documentation for date of: 03/06/25 Subjective Subjective Interval history: Overnight events: No acute events overnight. Patient was seen and examined at bedside. AM vitals and labs reviewed. Patient much more active and responsive compared to yesterday. Patient received 2 units of blood yesterday, today's a.m. H&H 7.0/21.2. Discussed alcohol cessation with patient. Patient's family was in room today, discussed plan with patient's family. Patient stated that he takes 200 mg of Motrin twice a day for a long time. EGD planned for today. Pending GI recommendations afterwards. Will consider restarting digoxin tomorrow for Friday schedule. Review of systems otherwise negative except for what is mentioned above. Exam Vital Signs Temp Pulse Resp BP Pulse Ox O2 Del Method 97.1 F 86 13 128/81 100 Room Air 03/06/25 08:00 03/06/25 08:00 03/06/25 08:00 03/06/25 08:00 03/06/25 08:00 03/06/25 08:00 Narrative Exam Physical Exam: General: Alert, no acute distress. Skin: Warm, dry, intact, no obvious rash. Head: Normocephalic, atraumatic. Eye: Normal conjunctiva, PERRL. Throat: Oral mucosa dry. No obvious lesions in oropharynx. Cardiovascular: Regular rate and rhythm, no murmur, +S1/S2. Respiratory: Lungs are clear to auscultation, respirations unlabored, no crackles, no wheezing. Gastrointestinal: Soft, nontender, non-distended. No guarding or rebound tenderness. Extremities: No edema, no cyanosis, no clubbing. 2+ radial pulse bilaterally, 2+ pedal pulse bilaterally. Neuro: No focal deficits observed. Conversant, moving all extremities. No overt cerebellar signs/incoordination. Psychiatric: Cooperative, appropriate affect. Objective Labs 03/06/25 04:08 03/06/25 04:08 Labs: Laboratory Results - last 24 hr 03/05/25 03/05/25 03/05/25 13:17 14:01 16:04 WBC 5.8 RBC 1.58 L* Hgb 5.7 L* Hct 17.2 L* MCV 109 H MCH 36.1 H MCHC 33.1 RDW Std Deviation 63.5 H Plt Count 174 Neut % (Auto) 73 Lymph % (Auto) 14 [place] % (Auto) 11 Eos % (Auto) 1 Baso % (Auto) 1 Neut # (Auto) 4.2 Lymph # (Auto) 0.8 L [place] # (Auto) 0.6 Eos # (Auto) 0.0 Baso # (Auto) 0.0 Immature Gran # (Auto) 0.09 H Absolute Nucleated RBC 0.00 Immature Gran % 2 H Nucleated RBC % 0 Smear Path Review Sent to Pathologist PT 14.6 H INR 1.4 H APTT 27.4 VBG pH 7.39 VBG pCO2 36 VBG pO2 31 VBG O2 Sat (Bro) 55 L VBG Base Excess -3 Sodium 142 Potassium 4.2 Chloride 110 H Carbon Dioxide 21.9 Anion Gap 10 BUN 85 H Creatinine 2.1 H Estim Creat Clear Calc 31.7 L eGFR 31 L BUN/Creatinine Ratio 40 H Glucose [address] Glu mg/dL Hemoglobin A1c Calculated Osmolality 313 H Lactic Acid 1.4 Calcium 8.2 L Corrected Calcium 8.8 Phosphorus Magnesium 2.0 Total Bilirubin 0.4 AST 18 ALT 13 Alkaline Phosphatase 33 L Troponin I < 0.020 Total Protein 5.2 L Albumin 3.3 L Globulin 1.9 L Albumin/Globulin Ratio 1.7 Triglycerides Cholesterol LDL Cholesterol, Calc HDL Cholesterol Cholesterol/HDL Ratio TSH Free T4 Ur Collection Type Catheter Urine Color Lt-Yellow Urine Clarity Clear Urine pH 5.5 Ur Specific [place] 1.015 Urine Protein Negative Urine Glucose (UA) Negative Urine Ketones Negative Urine Blood Negative Urine Nitrite Negative Urine Bilirubin Negative Urine Urobilinogen (Auto) Negative Ur Leukocyte Esterase Negative Urine RBC 0 Urine WBC 0 Ur Squamous Epith Cells 0 Urine Bacteria Rare Hyaline Casts < 1 Digoxin Urine Opiates Screen Negative Urine Fentanyl Screen Negative Ur Barbiturates Screen Negative U Amphetamin/Meth Scrn Negative U Benzodiazepines Scrn Negative U Cocaine Metab Screen Negative U Marijuana (THC) Screen Negative HCG (Qual) Negative Blood Type O Positive Antibody Screen NEGATIVE Crossmatch See Detail Blood Bank Wristband ID Yes 03/06/25 04:08 WBC 5.1 RBC 2.09 L Hgb 7.0 L D Hct 21.2 L* MCV 101 H MCH 33.5 MCHC 33.0 RDW Std Deviation 67.7 H Plt Count 139 L D Neut % (Auto) 64 Lymph % (Auto) 21 [place] % (Auto) 12 Eos % (Auto) 1 Baso % (Auto) 1 Neut # (Auto) 3.3 Lymph # (Auto) 1.1 [place] # (Auto) 0.6 Eos # (Auto) 0.1 Baso # (Auto) 0.0 Immature Gran # (Auto) 0.11 H Absolute Nucleated RBC 0.00 Immature Gran % 2 H Nucleated RBC % 0 Smear Path Review PT INR APTT VBG pH VBG pCO2 VBG pO2 VBG O2 Sat (Bro) VBG Base Excess Sodium 147 H Potassium 4.4 Chloride 117 H Carbon Dioxide 19.6 L Anion Gap 10 BUN 52 H Creatinine 1.6 H D Estim Creat Clear Calc 41.6 L eGFR 43 L BUN/Creatinine Ratio 33 H Glucose [address] Glu mg/dL 123 Hemoglobin A1c 5.9 Calculated Osmolality 308 H Lactic Acid Calcium 8.0 L Corrected Calcium 8.8 Phosphorus 2.5 Magnesium 1.8 Total Bilirubin 0.4 AST 13 ALT 7 L Alkaline Phosphatase 29 L Troponin I Total Protein 4.9 L Albumin 3.0 L Globulin 1.9 L Albumin/Globulin Ratio 1.6 Triglycerides 165 H Cholesterol 58 L LDL Cholesterol, Calc 11 HDL Cholesterol 14 L Cholesterol/HDL Ratio 4.1 TSH 1.51 Free T4 1.00 Ur Collection Type Urine Color Urine Clarity Urine pH Ur Specific [place] Urine Protein Urine Glucose (UA) Urine Ketones Urine Blood Urine Nitrite Urine Bilirubin Urine Urobilinogen (Auto) Ur Leukocyte Esterase Urine RBC Urine WBC Ur Squamous Epith Cells Urine Bacteria Hyaline Casts Digoxin 0.7 L Urine Opiates Screen Urine Fentanyl Screen Ur Barbiturates Screen U Amphetamin/Meth Scrn U Benzodiazepines Scrn U Cocaine Metab Screen U Marijuana (THC) Screen HCG (Qual) Blood Type Antibody Screen Crossmatch Blood Bank Wristband ID ABG Interpretation ABG results: 03/05/25 13:17 VBG pH 7.39 VBG pCO2 36 VBG pO2 31 VBG Base Excess -3 Quality Measures Quality Measures none Advance care planning discussed with:: patient and child Assessment & Plan Assessment Current Active Medications: Generic Name Dose Route Start Last Admin Trade Name Freq PRN Reason Stop Dose Admin Acetaminophen 650 mg 03/05/25 15:28 Acetaminophen 325 Mg Tablet PO 04/04/25 15:27 Q6H PRN Fever >101.5 or pain (1-3) Atorvastatin Calcium 40 mg 03/05/25 21:00 03/05/25 21:45 Atorvastatin Calcium 20 Mg Tablet PO 04/04/25 20:59 40 mg HS CLAUDE Administration Sodium Chloride 1,000 mls @ 100 mls/hr 03/05/25 13:15 03/06/25 01:47 Ns IV 04/04/25 13:14 100 mls/hr Q10H CLAUDE Administration Pantoprazole Sodium 80 mg in 100 mls @ 10 mls/hr 03/05/25 15:36 03/06/25 09:39 Protonix/Ns 80mg Iv Premix IV 03/08/25 13:35 10 mls/hr Q10H CLAUDE Administration Ondansetron HCl 4 mg 03/05/25 13:06 Ondansetron Inj 2 Mg/Ml Inj 2 Ml IVP 04/04/25 13:05 Q4HR PRN NAUSEA OR VOMITING Plan Mr. Rios is an 79-year-old male with a history of A-fib on Xarelto, hypertension, and polymyalgia rheumatica who presents to [facility] ED on 03/05 for generalized weakness and inability to walk. The patient was admitted for GI bleed. #GI bleed, likely upper GI bleed #Symptomatic anemia Patient was brought to ED due to generalized fatigue and difficulty waking on the morning of 03/05. When patient was brought to the ED, his RBC was 1.58, hemoglobin 5.7, and hematocrit was 17.2. The patient endorsed black tarry stools that started about 2 to 3 weeks ago, but has only had this acute weakness on 03/05. ? Protonix drip (03/05--) ? Consulted GI, appreciate recommendations ? 2 units of blood ordered 03/05, repeat H&H ordered after transfusion ? 18-gauge bores ordered if aggressive fluid resuscitation is needed ? Will hold home benazepril, clonidine, furosemide, Xarelto until bleeding has stabilized #Altered mentation ddx TIA, CVA, metabolic encephalopathy Patient notably brought to the ED with concerns of potential stroke due to generalized fatigue and difficulty walking that had sudden onset this morning. Patient is oriented to person time and place, but responses much slower than usual. Neurology was consulted, who did not believe that this is an acute stroke. Neurology recommended workup for metabolic encephalopathy. ? Neurochecks every 4 hours ? Bedside swallow eval ? Head of bed 30 degrees ? Ordered digoxin, TSH, free T4, vitamin B12, and folate levels for metabolic workup ? Will continue to monitor, if symptoms do not improve with correction of underlying metabolic derangement, will consider MRI brain and EEG per neurology recommendations #A-fib, on Xarelto and digoxin, rate controlled Patient has a history of atrial fibrillation and sees roller painter Dr. Colon for management. Patient is currently on Xarelto and digoxin. Asked pharmacy about digoxin dosing and they confirmed 0.125 mg daily while patient's family states that the patient takes 0.125 mg Friday and Friday. Contacted Dr. Colon for confirmation, and he stated that the patient was okay taking 0.125 mg Friday. CHADS-VASC score 4 (stroke risk 4.8% per year) HAS-BLED score 3 (bleed risk 5.8%, patient is at high risk for major bleeding) ? Will hold home Xarelto due to current GI bleed ? Will restart home digoxin on Friday # VANNA on CKD likely prerenal In the ED, the patient had a BUN of 85, creatinine of 2.1, and GFR of 31. Patient does not have any known history of CKD. This is likely due to acute loss of blood due to GI bleed, resulting in decreased blood flow to the kidneys, which led to VANNA. This is expected to resolve with resuscitation by blood products. -Per chart reviewing pt have history of CKD with Cr around 1.4-1.7 ? Renally dose medications ? Avoid nephrotoxic medications ? Will hold off on IV fluid hydration given significantly decreased H&H on admission ? Will reassess 08/10 AM after 2 units of blood given 03/05 in late afternoon #?CHF Patient does not have a documented history of CHF, but patient takes furosemide 20 mg p.o. daily at home. Echocardiogram done on 04/30/2018 showed EF of 50% with moderate mitral regurgitation. ? Will hold patient's home furosemide given current GI bleed ? Strict ins and outs ? Daily weights ordered #Primary Hypertension Patient has a history of hypertension. Patient takes benazepril 40 mg daily and clonidine 0.2 mg 3 times daily at home. ? Will hold patient's home antihypertensives given current GI bleed ? Will monitor blood pressure closely DVT Prophylaxis: SCDs GI Prophylaxis: Protonix drip Bowel: N/A Diet: Full liquid, cardiac diet Justin: N/A Lines: Peripheral IV Antibiotics: N/A Code Status: FULL Reason for Hospitalization: GI bleed Other Barriers to Discharge: GI consultation Patient plan of care was discussed with the senior resident Dr. Winters (PGY-2) and attending physician Dr. Ross. Jhon Levine, PGY1
--- NOTE | 2025-03-06 14:18 | PC.PT ---
Patient is safe to ambulate to the bathroom and in the halls with the IV pole and 1 staff assist. RN made aware.
--- NOTE | 2025-03-06 16:36 | SUR.PHASEI ---
1623 PATIENT RECEIVED INTO BAY 01 REPORT RECEIVED HERMINIA RN, NO S/S OF DISTRESS NOTED. VITAL SIGNS STABLE.
--- NOTE | 2025-03-06 16:48 | SUR.PHASEI ---
1648 REPORT CALLED TO ANI LARA, PATIENT TRANSFERRED IN STABLE CONDITION.
[2025-03-06] MEDS: SUCRALFATE SUSP 1 GM/10 ML UDC PO ×2 (17:27→21:18)
[2025-03-06] MEDS: MG HYD/AL HYD/SIME (Maalox Reg) SUSP 30 ML UDC 15 ML PO ×2 (18:12→21:18)
[2025-03-06] MEDS: ATORVASTATIN CALCIUM 20 MG TABLET 40 MG PO (21:18)
[2025-03-07] VITALS (22 sets, daily range): BP systolic 129–169; BP diastolic 27–127; PULSE 85–126; RESP 12–96; TEMP 36.3–37; O2SAT 92–100; BMI 23.3
[2025-03-07] MEDS: SODIUM CHLORIDE 0.9% 1000 ML 1,000 ML 100 ML IV ×2 (01:14→20:38)
[2025-03-07] MEDS: MG HYD/AL HYD/SIME (Maalox Reg) SUSP 30 ML UDC 15 ML PO ×3 (01:19→23:46)
[2025-03-07 07:01] LABS: Basophils # (Auto) 0.0 Thou/mm3 (0.0-0.2); Basophils % (Auto) 1 % (0-2.5); Eosinophils # (Auto) 0.1 Thou/mm3 (0.0-0.5); Eosinophils % (Auto) 1 % (0-10); Immature Granulocytes Auto 0.05 Thou/mm3 (0.00-0.00); Lymphocytes # (Auto) 0.7 Thou/mm3 (1.0-4.8); Lymphocytes % (Auto) 13 % (10-50); Mean Corpuscular HGB Conc 32.4 g/dl (31.0-37.0); Mean Corpuscular Hemoglobin 34.0 pg (25.0-35.0); Mean Corpuscular Volume 105 fL (80-100); Monocytes # (Auto) 0.6 Thou/mm3 (0.0-0.8); Monocytes % (Auto) 12 % (0-12); Neutrophils # (Auto) 3.9 Thou/mm3 (1.8-7.7); Neutrophils % (Auto) 72 % (37-80); Nucleated Red Blood Cell # 0.00 Thou/mm3 (0.00-0.00); Nucleated Red Blood Cell % 0 /100 WBC (0); Platelet Count 117 Thou/mm3 (140-440); RDW Standard Deviation 74.1 fL (35.1-43.9); Red Blood Count 1.62 Miln/mm3 (4.50-5.90); White Blood Count 5.3 Thou/mm3 (3.8-10.6)
[2025-03-07 07:05] LABS: Hematocrit 17.0 % (41.0-53.0); Hemoglobin 5.5 g/dL (13.5-16.0)
--- NOTE | 2025-03-07 07:38 | XR_ITS ---
Examination: AP chest single view TECHNIQUE: Portable sitting AP chest single view Date and time: March 07, 2025 0838 hours INDICATIONS: Clinical diagnosis congestion shortness of breath. FINDINGS: Mild elevation left hemidiaphragm Mild prominence left ventricle. No pneumonia or pulmonary edema. Old fractures left seventh and eighth ribs posteriorly IMPRESSION: No pneumonia or pulmonary edema.
[2025-03-07 07:45] LABS: Alanine Aminotransferase < 7 U/L (10-49); Albumin, Serum 2.9 gm/dL (3.4-4.8); Albumin/Globulin Ratio 1.7 (1.2-2.2); Alkaline Phosphatase 28 U/L (46-116); Anion Gap 10 (7-16); Aspartate Amino Transferase 14 U/L (0-34); BUN/Creatinine Ratio 24 Ratio (12-20); Bilirubin,Total 0.5 mg/dL (0.3-1.2); Blood Urea Nitrogen 36 mg/dL (9-23); Calcium 7.7 mg/dL (8.3-10.6); Calcium (Corrected) 8.6 mg/dL (8.5-10.1); Carbon Dioxide 20.4 mMol/L (20.0-31.0); Chloride 119 mMol/L (98-107); Creatinine (Component) 1.5 mg/dL (0.6-1.3); Estimated Creatinine Clearance 44.4 mL/min (>60); Globulin 1.7 gm/dL (2.3-3.5); Glucose 139 mg/dL (74-106); Magnesium 1.7 mg/dL (1.6-2.6); Osmolality,Calculated 306 (275-295); Phosphorous 2.9 mg/dL (2.4-5.1); Potassium 4.1 mMol/L (3.4-5.1); Sodium 149 mMol/L (136-145); Total Protein 4.6 gm/dL (5.7-8.2); eGFR 47 See Note
[2025-03-07] MEDS: PANTOPRAZOLE/NS 80MG IV PREMIX 80 MG/100 ML BAG 10 MG IV ×2 (08:05→20:36)
[2025-03-07] MEDS: SUCRALFATE SUSP 1 GM/10 ML UDC PO ×2 (08:05→23:46)
--- NOTE | 2025-03-07 08:44 | XR_ITS ---
Examination: Nuclear medicine gastrointestinal bleeding study Date and time: March 07, 2025 10:37 AM INDICATIONS: Patient is anticoagulated with hematochezia this week TECHNIQUE AND FINDINGS: Intravenous ministration 20.6 mCi technetium 99m pertechnetate labeled red blood cells Images of the abdomen and pelvis obtained 60 frames per second 90 Normal vascular activity No abnormal bleeding site noted IMPRESSION: No abnormal bleeding site noted
--- NOTE | 2025-03-07 10:21 | PC.SS ---
Update: Plan is for patient to obtain nuclear scan of abdomen today. EGD is pending. Patient to be transfussed.
[2025-03-07 12:45] LABS: Folate 5.63 ng/mL (>5.38)
--- NOTE | 2025-03-07 13:29 | ESPR_ITS ---
<Statement entered by Nathan Ross MD - 03/10/25 09:09> I reviewed above note and agree with findings and plans. I have also personally examined the patient with medicine team and went over assessment and plan with medical team including international trade specialist and resident physician. <Statement entered by Yara Winters MD - 03/07/25 15:52> Patient is seen at bedside this morning. This morning patient's labs were significant for hemoglobin less than 6 and 2 PRBCs are ordered. Patient underwent EGD yesterday which showed angiodysplastic bleeding and was cauterized and clipped however due to significant drop in hemoglobin, will repeat EGD today. Otherwise patient denies any shortness of breath or dizziness. Will continue to monitor post transfusion H&H. Patient was seen and examined by me personally. I have directly supervised and reviewed documentation by the team resident and agree with its findings. ------- Plan of care was discussed with the attending, Dr.Obad Dr. Winters, PGY-2 Documentation for date of: 03/07/25 Subjective Subjective Interval history: Overnight events: No acute events overnight. Patient was seen and examined at bedside. AM vitals and labs reviewed. Patient continues to be close to baseline, much more conversational and active compared to how he was on admission. AM H&H 5.5/17.0 PT recommends discharge home with home health. 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 Ordered 2 bags pRBC with repeat H&H after transfusion completion. GI bleed nuclear scan ordered. Discussed with Dr. Bauer, GI, who plans to do repeat EGD later today to identify if patient has further bleeds. Patient placed NPO for procedure. Review of systems otherwise negative except for what is mentioned above. Exam Vital Signs Temp Pulse Resp BP Pulse Ox O2 Del Method O2 Flow Rate 97.4 F 92 20 155/98 H 100 Nasal Cannula 1 03/07/25 12:35 03/07/25 12:35 03/07/25 12:35 03/07/25 12:35 03/07/25 12:35 03/07/25 12:00 03/07/25 12:33 Narrative Exam Physical Exam: General: Alert, no acute distress. Skin: Warm, dry, intact, no obvious rash. Head: Normocephalic, atraumatic. Eye: Normal conjunctiva, PERRL. Throat: Oral mucosa dry. No obvious lesions in oropharynx. Cardiovascular: Tachycardic and irregular rhythm, soft systolic murmur, +S1/S2. Respiratory: Lungs are clear to auscultation, respirations unlabored, no crackles, no wheezing. Gastrointestinal: Soft, nontender, non-distended. No guarding or rebound tenderness. Extremities: No edema, no cyanosis, no clubbing. 2+ radial pulse bilaterally, 2+ pedal pulse bilaterally. Neuro: No focal deficits observed. Conversant, moving all extremities. No overt cerebellar signs/incoordination. Psychiatric: Cooperative, appropriate affect. Objective Labs 03/07/25 06:11 03/07/25 06:11 Labs: Laboratory Results - last 24 hr 03/05/25 03/06/25 03/07/25 14:01 04:08 06:11 WBC 5.3 RBC 1.62 L* Hgb 5.5 L* D Hct 17.0 L* MCV 105 H MCH 34.0 MCHC 32.4 RDW Std Deviation 74.1 H Plt Count 117 L Neut % (Auto) 72 Lymph % (Auto) 13 [place] % (Auto) 12 Eos % (Auto) 1 Baso % (Auto) 1 Neut # (Auto) 3.9 Lymph # (Auto) 0.7 L [place] # (Auto) 0.6 Eos # (Auto) 0.1 Baso # (Auto) 0.0 Immature Gran # (Auto) 0.05 H Absolute Nucleated RBC 0.00 Immature Gran % 1 H Nucleated RBC % 0 Sodium 149 H Potassium 4.1 Chloride 119 H Carbon Dioxide 20.4 Anion Gap 10 BUN 36 H Creatinine 1.5 H Estim Creat Clear Calc 44.4 L eGFR 47 L BUN/Creatinine Ratio 24 H Glucose 139 H Calculated Osmolality 306 H Calcium 7.7 L Corrected Calcium 8.6 Phosphorus 2.9 Magnesium 1.7 Total Bilirubin 0.5 AST 14 ALT < 7 L Alkaline Phosphatase 28 L Total Protein 4.6 L Albumin 2.9 L Globulin 1.7 L Albumin/Globulin Ratio 1.7 Folate 5.63 Blood Type O Positive Antibody Screen NEGATIVE Crossmatch See Detail Blood Bank Wristband ID Yes ABG Interpretation ABG results: 03/05/25 13:17 VBG pH 7.39 VBG pCO2 36 VBG pO2 31 VBG Base Excess -3 Quality Measures Quality Measures none Advance care planning discussed with:: patient and spouse Assessment & Plan Assessment Current Active Medications: Generic Name Dose Route Start Last Admin Trade Name Freq PRN Reason Stop Dose Admin Acetaminophen 650 mg 03/05/25 15:28 Acetaminophen 325 Mg Tablet PO 04/04/25 15:27 Q6H PRN Fever >101.5 or pain (1-3) Al Hydrox/Mg Hydrox/Simethicone 15 ml 03/06/25 18:00 03/07/25 10:00 Mg Hyd/Al Hyd/Mei (Maalox Reg) Susp 30 Ml Udc PO 04/05/25 17:59 Not Given Q4HR CLAUDE Atorvastatin Calcium 40 mg 03/05/25 21:00 03/06/25 21:18 Atorvastatin Calcium 20 Mg Tablet PO 04/04/25 20:59 40 mg HS CLAUDE Administration Sodium Chloride 1,000 mls @ 100 mls/hr 03/05/25 13:15 03/07/25 01:14 Ns IV 04/04/25 13:14 100 mls/hr Q10H CLAUDE Administration Pantoprazole Sodium 80 mg in 100 mls @ 10 mls/hr 03/05/25 15:36 03/07/25 08:05 Protonix/Ns 80mg Iv Premix IV 03/08/25 13:35 10 mls/hr Q10H CLAUDE Administration Ondansetron HCl 4 mg 03/05/25 13:06 Ondansetron Inj 2 Mg/Ml Inj 2 Ml IVP 04/04/25 13:05 Q4HR PRN NAUSEA OR VOMITING Sucralfate 1 gm 03/06/25 17:00 03/07/25 11:48 Sucralfate Susp 1 Gm/10 Ml Udc PO 04/05/25 16:59 Not Given ACHS CLAUDE Plan Mr. Rios is an 79-year-old male with a history of A-fib on Xarelto, hypertension, and polymyalgia rheumatica who presents to [facility] ED on 03/05 for generalized weakness and inability to walk. The patient was admitted for GI bleed. #GI bleed, likely upper GI bleed #Symptomatic anemia Patient was brought to ED due to generalized fatigue and difficulty waking on the morning of 03/05. When patient was brought to the ED, his RBC was 1.58, hemoglobin 5.7, and hematocrit was 17.2. The patient endorsed black tarry stools that started about 2 to 3 weeks ago, but has only had this acute weakness on 03/05. ? Protonix drip (03/05--) ? 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 ? Repeat EGD planned for 03/07 ? 2 units of blood ordered 03/05, repeat H&H ordered after transfusion; addition 2 units of blood ordered 03/07 with repeat H&H. ? Will hold home benazepril, clonidine, furosemide, Xarelto until bleeding has stabilized #Altered mentation ddx TIA, CVA, metabolic encephalopathy Patient notably brought to the ED with concerns of potential stroke due to generalized fatigue and difficulty walking that had sudden onset this morning. Patient is oriented to person time and place, but responses much slower than usual. Neurology was consulted, who did not believe that this is an acute stroke. Neurology recommended workup for metabolic encephalopathy. ? Neurochecks every 4 hours ? Bedside swallow eval ? Head of bed 30 degrees ? Ordered digoxin, TSH, free T4, vitamin B12, and folate levels for metabolic workup ? Will continue to monitor, if symptoms do not improve with correction of underlying metabolic derangement, will consider MRI brain and EEG per neurology recommendations #A-fib, on Xarelto and digoxin, rate controlled Patient has a history of atrial fibrillation and sees mail room clerk Dr. Colon for management. Patient is currently on Xarelto and digoxin. Asked pharmacy about digoxin dosing and they confirmed 0.125 mg daily while patient's family states that the patient takes 0.125 mg Friday and Friday. Contacted Dr. Colon for confirmation, and he stated that the patient was okay taking 0.125 mg Friday. CHADS-VASC score 4 (stroke risk 4.8% per year) HAS-BLED score 3 (bleed risk 5.8%, patient is at high risk for major bleeding) ? Will hold home Xarelto due to current GI bleed ? Will restart home digoxin on Friday # VANNA on CKD likely prerenal (resolving) In the ED, the patient had a BUN of 85, creatinine of 2.1, and GFR of 31. Patient does not have any known history of CKD. This is likely due to acute loss of blood due to GI bleed, resulting in decreased blood flow to the kidneys, which led to VANNA. This is expected to resolve with resuscitation by blood products. -Per chart reviewing pt have history of CKD with Cr around 1.4-1.7 ? Renally dose medications ? Avoid nephrotoxic medications ? Will hold off on IV fluid hydration given significantly decreased H&H on admission #?CHF Patient does not have a documented history of CHF, but patient takes furosemide 20 mg p.o. daily at home. Echocardiogram done on 04/30/2018 showed EF of 50% with moderate mitral regurgitation. ? Will hold patient's home furosemide given current GI bleed ? Strict ins and outs ? Daily weights ordered #Primary Hypertension Patient has a history of hypertension. Patient takes benazepril 40 mg daily and clonidine 0.2 mg 3 times daily at home. ? Will hold patient's home antihypertensives given current GI bleed ? Will monitor blood pressure closely DVT Prophylaxis: SCDs GI Prophylaxis: Protonix drip Bowel: N/A Diet: Full liquid, cardiac diet Justin: N/A Lines: Peripheral IV Antibiotics: N/A Code Status: FULL Reason for Hospitalization: GI bleed Other Barriers to Discharge: Repeat EGD Patient plan of care was discussed with the senior resident Dr. Winters (PGY-2) and attending physician Dr. Ross. Jhon Levine, PGY1
--- NOTE | 2025-03-07 15:40 | PC.SS ---
SENIOR RESEARCH ASSOCIATE conducted bedside contact with the patient conduct initial assessment and to discuss discharge planning.? Patient confirmed demographic information.? Patient resides at home with spouse, Malena Rios .? Patient is currently employed.? Patient does not utilize any form of DME to assist with ambulation.? Patient does not utilize home oxygen.? Patient describes the ability to complete ADL?s independently.? Patient identified spouse, Malena Rios; as surrogate medical decision maker.? Patient?s PCP is Dr. Barakat.? Patient?s chief counsel is Dr. Hutsno.? Patient utilizes [facility] for medication services.? Plan is for the patient to return home at the time of discharge.? Family will provide transportation on behalf of the patient. ?No further discharge needs identified by the patient.? No further intervention required at this time, social media coordinator will be available to address any further concerns.? Next of Kin: Malena Rios D/C Plan: Home
--- NOTE | 2025-03-07 16:44 | PC.SS ---
Rounding Note: Patient's hemoglobin dropped, plan is to transfuse the patient. EGD to be repeated.
--- NOTE | 2025-03-07 17:20 | PD.SURCONS ---
HPI Consult details History of present illness: 79M with HTN, HLD, afib on xarelto admitted 03/05 for weakness and difficulty walking. Pt was found to have Hgb 5.7, he received 2u PRBC and yesterday underwent EGD which showed a single angiodysplastic lesion in the stomach with stigmata or recent bleeding which was clipped and cauterized. Pt was then noted to have Hgb 5.5 today from 7, with no signs of ongoing bleeding including a negative bleeding scan, and is planned for repeat EGD today. He is receiving two more units of pRBC today for a total of 4. He did have tachycardia yesterday and some bouts of it today but most recent heart rates are in the 80s-90s with normal-high BP Per RN pt has not had any BMs since admission but reportedly was having dark stools before admission Meds Home Medications and Allergies Home Medications ?Medication ?Instructions ?Recorded ?Confirmed ?Type benazepril 40 mg tablet 40 mg PO QDAY 04/30/18 03/05/25 History clonidine HCl 0.2 mg tablet 0.2 mg PO TID 04/30/18 03/05/25 History rivaroxaban 15 mg tablet (Xarelto) 15 mg PO QDAY 04/30/18 03/05/25 History digoxin 125 mcg (0.125 mg) tablet 0.125 mg PO QDAY 03/05/25 03/05/25 History furosemide 20 mg tablet 20 mg PO QDAY 03/05/25 03/05/25 History Allergies Allergy/AdvReac Type Severity Reaction Status Date / Time No Known Allergies Allergy Verified 02/04/25 10:02 Exam Vital Signs Temp Pulse Resp BP Pulse Ox O2 Del Method O2 Flow Rate 98.6 F 88 16 163/91 H 92 L Nasal Cannula 1 03/07/25 16:09 03/07/25 16:09 03/07/25 16:09 03/07/25 16:09 03/07/25 16:03/07/25 12:00 03/07/25 16:09 Constitutional Constitutional: no acute distress Routine Respiratory Exam Respiratory: Present no resp distress Results Results: Laboratory Laboratory results: results reviewed Results: Imaging Imaging narrative: EGD, bleeding scan reviewed Assessment & Plan Plan 79M with HTN, HLD, afib on xarelto admitted 03/05 for weakness and difficulty walking with findings of acute blood loss anemia and EGD 03/06 showing a single angiodysplastic lesion. As of now pt is hemodynamically normal, with no signs of active bleeding aside from the unexpected decrease in Hgb today. I do agree repeat EGD is warranted and will follow up if pt condition worsens
[2025-03-07 18:12] LABS: Hematocrit 23.0 % (41.0-53.0)
[2025-03-07 18:26] LABS: Hemoglobin 7.5 g/dL (13.5-16.0)
--- NOTE | 2025-03-07 20:10 | PD.IMPROG ---
Documentation for date of: 03/07/25 Subjective Subjective Interval history: Patient evaluated hemoglobin hematocrit dropped down to 5.5 and 17.0 Case discussed with internal medicine team RBC 10 nuclear medicine scan was ordered and is negative Patient given blood transfusion hemoglobin is back up to 7.5 and 23.0 Will do an upper endoscopy to make sure the AVM site is not bleeding If that is negative we will consider doing a fibrotic colonoscopy after GoLytely prep tomorrow Exam Vital Signs Temp Pulse Resp BP Pulse Ox O2 Del Method O2 Flow Rate 98.6 F 98 14 169/101 H 100 Nasal Cannula 1 03/07/25 18:30 03/07/25 18:30 03/07/25 18:30 03/07/25 18:30 03/07/25 18:30 03/07/25 12:00 03/07/25 18:30 Objective Labs 03/07/25 17:50 03/07/25 06:11 Labs: Laboratory Results - last 24 hr 03/05/25 03/06/25 03/07/25 14:01 04:08 06:11 WBC 5.3 RBC 1.62 L* Hgb 5.5 L* D Hct 17.0 L* MCV 105 H MCH 34.0 MCHC 32.4 RDW Std Deviation 74.1 H Plt Count 117 L Neut % (Auto) 72 Lymph % (Auto) 13 [place] % (Auto) 12 Eos % (Auto) 1 Baso % (Auto) 1 Neut # (Auto) 3.9 Lymph # (Auto) 0.7 L [place] # (Auto) 0.6 Eos # (Auto) 0.1 Baso # (Auto) 0.0 Immature Gran # (Auto) 0.05 H Absolute Nucleated RBC 0.00 Immature Gran % 1 H Nucleated RBC % 0 Sodium 149 H Potassium 4.1 Chloride 119 H Carbon Dioxide 20.4 Anion Gap 10 BUN 36 H Creatinine 1.5 H Estim Creat Clear Calc 44.4 L eGFR 47 L BUN/Creatinine Ratio 24 H Glucose 139 H Calculated Osmolality 306 H Calcium 7.7 L Corrected Calcium 8.6 Phosphorus 2.9 Magnesium 1.7 Total Bilirubin 0.5 AST 14 ALT < 7 L Alkaline Phosphatase 28 L Total Protein 4.6 L Albumin 2.9 L Globulin 1.7 L Albumin/Globulin Ratio 1.7 Folate 5.63 Blood Type O Positive Antibody Screen NEGATIVE Crossmatch See Detail Blood Bank Wristband ID Yes 03/07/25 17:50 WBC RBC Hgb 7.5 L D Hct 23.0 L MCV MCH MCHC RDW Std Deviation Plt Count Neut % (Auto) Lymph % (Auto) [place] % (Auto) Eos % (Auto) Baso % (Auto) Neut # (Auto) Lymph # (Auto) [place] # (Auto) Eos # (Auto) Baso # (Auto) Immature Gran # (Auto) Absolute Nucleated RBC Immature Gran % Nucleated RBC % Sodium Potassium Chloride Carbon Dioxide Anion Gap BUN Creatinine Estim Creat Clear Calc eGFR BUN/Creatinine Ratio Glucose Calculated Osmolality Calcium Corrected Calcium Phosphorus Magnesium Total Bilirubin AST ALT Alkaline Phosphatase Total Protein Albumin Globulin Albumin/Globulin Ratio Folate Blood Type Antibody Screen Crossmatch Blood Bank Wristband ID Impressions Impression: Acute posthemorrhagic anemia most likely site of bleeding AVMs either gastric or small bowel Consent obtained for fiberoptic esophagogastroduodenoscopy with possible therapeutic intervention under intravenous moderate sedation ABG Interpretation ABG results: 03/05/25 13:17 VBG pH 7.39 VBG pCO2 36 VBG pO2 31 VBG Base Excess -3 Assessment & Plan A&P Narrative # Acute posthemorrhagic anemia # melena Plan IV Protonix N.p.o. midnight tonight Agree with a blood transfusion Consent obtained for fiberoptic esophagogastroduodenoscopy with possible therapeutic intervention under intravenous moderate sedation tentatively scheduled for tomorrow Serial CBC Other medical problems include Polymyalgia rheumatica continue prednisone Atrial fibrillation on Xarelto. Xarelto on hold till the upper endoscopy Thank you very much for the opportunity to participate in the care of this patient Time Spent With Patient Time: Total time spent is greater than 50% in coordination of care (as documented) at patient's floor/unit and/or counseling patient:
[2025-03-07] MEDS: Magnesium Sulfate 4 GM Ivpb 4 GM/50 ML BAG IV (20:36)
[2025-03-07 21:14] LABS: Hematocrit 22.9 % (41.0-53.0)
[2025-03-07 21:19] LABS: Hemoglobin 7.5 g/dL (13.5-16.0)
[2025-03-07] MEDS: SODIUM CHLORIDE 0.9% 500 ML 500 ML 20 ML IV (22:32)
--- NOTE | 2025-03-07 22:56 | SUR.PHASEI ---
pt received from OR in recovery bay 5. pt asleep but responds to voice, breathing unlabored on 2l nc. v/s stable. report received from Ching LARA.
--- NOTE | 2025-03-07 23:16 | SUR.OPER ---
2240 Left AC IV site with red streaking to area, hard and hot to touch. Pt states site, painful. IV removed with cannula intact. Pt farhat well.
--- NOTE | 2025-03-07 23:35 | SUR.PHASEI ---
pt asleep but responds to voice, breathing unlabored on 2l nc. v/s stable. report called to Samara Blake. pt will be transferred to room at this time.
[2025-03-07] MEDS: ATORVASTATIN CALCIUM 20 MG TABLET 40 MG PO (23:46)
[2025-03-07] MEDS: NA SU/NAHCO3/KC/PEG (Golytely) 4,000 ML BTL 4000 ML PO (23:47)
[2025-03-08] VITALS (14 sets, daily range): BP systolic 128–184; BP diastolic 75–116; PULSE 90–124; RESP 17–30; TEMP 36.7–38.7; O2SAT 95–100; BMI 24.0; BMI 24.2
[2025-03-08] MEDS: MG HYD/AL HYD/SIME (Maalox Reg) SUSP 30 ML UDC 15 ML PO ×6 (02:41→21:45)
[2025-03-08 06:24] LABS: Basophils # (Auto) 0.0 Thou/mm3 (0.0-0.2); Basophils % (Auto) 1 % (0-2.5); Eosinophils # (Auto) 0.0 Thou/mm3 (0.0-0.5); Eosinophils % (Auto) 0 % (0-10); Hematocrit 23.7 % (41.0-53.0); Immature Granulocytes Auto 0.04 Thou/mm3 (0.00-0.00); Lymphocytes # (Auto) 0.6 Thou/mm3 (1.0-4.8); Lymphocytes % (Auto) 11 % (10-50); Mean Corpuscular HGB Conc 32.9 g/dl (31.0-37.0); Mean Corpuscular Hemoglobin 32.0 pg (25.0-35.0); Mean Corpuscular Volume 97 fL (80-100); Monocytes # (Auto) 0.7 Thou/mm3 (0.0-0.8); Monocytes % (Auto) 15 % (0-12); Neutrophils # (Auto) 3.7 Thou/mm3 (1.8-7.7); Neutrophils % (Auto) 73 % (37-80); Nucleated Red Blood Cell # 0.00 Thou/mm3 (0.00-0.00); Nucleated Red Blood Cell % 0 /100 WBC (0); Platelet Count 130 Thou/mm3 (140-440); RDW Standard Deviation 84.4 fL (35.1-43.9); Red Blood Count 2.44 Miln/mm3 (4.50-5.90); White Blood Count 5.1 Thou/mm3 (3.8-10.6)
[2025-03-08 06:39] LABS: Hemoglobin 7.8 g/dL (13.5-16.0)
[2025-03-08 06:50] LABS: Alanine Aminotransferase 17 U/L (10-49); Albumin, Serum 3.5 gm/dL (3.4-4.8); Albumin/Globulin Ratio 1.6 (1.2-2.2); Alkaline Phosphatase 38 U/L (46-116); Anion Gap 10 (7-16); Aspartate Amino Transferase 24 U/L (0-34); BUN/Creatinine Ratio 14 Ratio (12-20); Bilirubin,Total 0.9 mg/dL (0.3-1.2); Blood Urea Nitrogen 19 mg/dL (9-23); Calcium 8.5 mg/dL (8.3-10.6); Calcium (Corrected) 8.9 mg/dL (8.5-10.1); Carbon Dioxide 22.5 mMol/L (20.0-31.0); Chloride 116 mMol/L (98-107); Creatinine (Component) 1.4 mg/dL (0.6-1.3); Estimated Creatinine Clearance 47.6 mL/min (>60); Globulin 2.2 gm/dL (2.3-3.5); Glucose 136 mg/dL (74-106); Magnesium 2.6 mg/dL (1.6-2.6); Osmolality,Calculated 298 (275-295); Phosphorous 2.8 mg/dL (2.4-5.1); Potassium 4.0 mMol/L (3.4-5.1); Sodium 148 mMol/L (136-145); Total Protein 5.7 gm/dL (5.7-8.2); eGFR 51 See Note
[2025-03-08] MEDS: SUCRALFATE SUSP 1 GM/10 ML UDC PO ×4 (07:55→20:14)
[2025-03-08] MEDS: ACETAMINOPHEN 325 MG TABLET 650 MG PO ×2 (07:55→16:57)
--- NOTE | 2025-03-08 09:00 | PC.SS ---
Update: Plan is for the patient to obtain a colonoscopy procedure.
[2025-03-08] MEDS: DIGOXIN 0.125 MG TABLET PO (09:32)
--- NOTE | 2025-03-08 09:50 | ESPR_ITS ---
<Statement entered by Nathan Ross MD - 03/21/25 07:41> I reviewed above note and agree with findings and plans. I have also personally examined the patient with medicine team and went over assessment and plan with medical team including hospitality intern and resident physician. <Statement entered by Yara Winters MD - 03/08/25 21:39> Pt is seen at bedside, he is alert and oriented, denies dizziness or SOB. repeat EGD was negative foractive bleeding. Per GI will proceed with colonoscopy. Currently going through golytly prep. Hgb post transfusion is stable. Later in the afternoon rapid response was called because of change in pt's mentation, was at bedside who stated pt suddenly became confused, had slurred speech. Stroke alert was called. CT of head was negative for acute hemorrhage and teleneurology was consulted. Will continue to monitor pt's mentation. Pt also had fever with temperature of 101. Blood cultures are drawn, WBC was within normal limits. No signs of infections. However if pt has repeat episode of fever, will start broad spectrum antibiotics. Pt also had 4 units of pRBCs transfused over the course of hospitalization, will continue to closely monitor for delayed transfusion reaction. Patient was seen and examined by me personally. I have directly supervised and reviewed documentation by the team resident and agree with its findings. ------- Plan of care was discussed with the attending, Dr. Cody Winters, PGY-2 Documentation for date of: 03/08/25 Subjective Subjective Interval history: Overnight events: No acute events overnight. Patient was seen and examined at bedside. AM vitals and labs reviewed. Patient received 2 unites of blood, hemoglobin went up to 7.5 after transfusion, now 7.8 with AM labs. Repeat EGD performed last night, no active bleeding found. Patient appears more tired today according to at bedside. Patient is on GoLytely for colonoscopy tonight to try and identify any further sites of GI bleeding. Resumed patient's home digoxin 0.125mg MWF schedule. Gave one time dose of digoxin 0.125mg this morning to compensate for not receiving it yesterday due to NPO status. Review of systems otherwise negative except for what is mentioned above. Exam Vital Signs Temp Pulse Resp BP Pulse Ox O2 Del Method O2 Flow Rate 99.1 F 93 30 H 153/98 H 98 Nasal Cannula 3.5 03/08/25 09:48 03/08/25 09:32 03/08/25 08:00 03/08/25 09:32 03/08/25 08:00 03/08/25 08:00 03/08/25 08:00 Narrative Exam Physical Exam: General: Alert, no acute distress. Skin: Warm, dry, intact, no obvious rash. Head: Normocephalic, atraumatic. Eye: Normal conjunctiva, PERRL. Throat: Oral mucosa moist. No obvious lesions in oropharynx. Cardiovascular: Regular rate and rhythm, soft systolic murmur best heard over tricuspid region, +S1/S2. Respiratory: Lungs are clear to auscultation, respirations unlabored, no crackles, no wheezing. Gastrointestinal: Soft, nontender, non-distended. No guarding or rebound tenderness. Extremities: No edema, no cyanosis, no clubbing. Neuro: No focal deficits observed. Conversant, moving all extremities. No overt cerebellar signs/incoordination. Psychiatric: Cooperative, appropriate affect. Objective Labs 03/08/25 14:36 03/08/25 14:36 Labs: Laboratory Results - last 24 hr 03/05/25 03/06/25 03/07/25 14:01 04:08 17:50 WBC RBC Hgb 7.5 L D Hct 23.0 L MCV MCH MCHC RDW Std Deviation Plt Count Neut % (Auto) Lymph % (Auto) [place] % (Auto) Eos % (Auto) Baso % (Auto) Neut # (Auto) Lymph # (Auto) [place] # (Auto) Eos # (Auto) Baso # (Auto) Immature Gran # (Auto) Absolute Nucleated RBC Immature Gran % Nucleated RBC % Sodium Potassium Chloride Carbon Dioxide Anion Gap BUN Creatinine Estim Creat Clear Calc eGFR BUN/Creatinine Ratio Glucose Calculated Osmolality Calcium Corrected Calcium Phosphorus Magnesium Total Bilirubin AST ALT Alkaline Phosphatase Total Protein Albumin Globulin Albumin/Globulin Ratio Folate 5.63 Blood Type O Positive Antibody Screen NEGATIVE Crossmatch See Detail Blood Bank Wristband ID Yes 03/07/25 03/08/25 20:25 06:05 WBC 5.1 RBC 2.44 L Hgb 7.5 L 7.8 L Hct 22.9 L 23.7 L MCV 97 MCH 32.0 MCHC 32.9 RDW Std Deviation 84.4 H Plt Count 130 L Neut % (Auto) 73 Lymph % (Auto) 11 [place] % (Auto) 15 H Eos % (Auto) 0 Baso % (Auto) 1 Neut # (Auto) 3.7 Lymph # (Auto) 0.6 L [place] # (Auto) 0.7 Eos # (Auto) 0.0 Baso # (Auto) 0.0 Immature Gran # (Auto) 0.04 H Absolute Nucleated RBC 0.00 Immature Gran % 1 H Nucleated RBC % 0 Sodium 148 H Potassium 4.0 Chloride 116 H Carbon Dioxide 22.5 Anion Gap 10 BUN 19 Creatinine 1.4 H Estim Creat Clear Calc 47.6 L eGFR 51 L BUN/Creatinine Ratio 14 Glucose 136 H Calculated Osmolality 298 H Calcium 8.5 Corrected Calcium 8.9 Phosphorus 2.8 Magnesium 2.6 Total Bilirubin 0.9 AST 24 ALT 17 Alkaline Phosphatase 38 L D Total Protein 5.7 Albumin 3.5 D Globulin 2.2 L Albumin/Globulin Ratio 1.6 Folate Blood Type Antibody Screen Crossmatch Blood Bank Wristband ID ABG Interpretation ABG results: 03/05/25 13:17 VBG pH 7.39 VBG pCO2 36 VBG pO2 31 VBG Base Excess -3 Quality Measures Quality Measures none Advance care planning discussed with:: patient and spouse Assessment & Plan Assessment Current Active Medications: Generic Name Dose Route Start Last Admin Trade Name Freq PRN Reason Stop Dose Admin Acetaminophen 650 mg 03/05/25 15:28 03/08/25 07:55 Acetaminophen 325 Mg Tablet PO 04/04/25 15:27 650 mg Q6H PRN Administration Fever >101.5 or pain (1-3) Al Hydrox/Mg Hydrox/Simethicone 15 ml 03/06/25 18:00 03/08/25 05:12 Mg Hyd/Al Hyd/Mei (Maalox Reg) Susp 30 Ml Udc PO 04/05/25 17:59 15 ml Q4HR CLAUDE Administration Atorvastatin Calcium 40 mg 03/05/25 21:00 03/07/25 23:46 Atorvastatin Calcium 20 Mg Tablet PO 04/04/25 20:59 40 mg HS CLAUDE Administration Digoxin 0.125 mg 03/09/25 09:00 Digoxin 0.125 Mg Tablet PO 04/08/25 08:59 [id number] CLAUDE Pantoprazole Sodium 80 mg in 100 mls @ 10 mls/hr 03/05/25 15:36 03/07/25 23:46 Protonix/Ns 80mg Iv Premix IV 03/08/25 13:35 10 mls/hr Q10H CLAUDE Infusion Sodium Chloride 500 mls @ 20 mls/hr 03/07/25 22:32 03/08/25 00:00 Ns IV 03/08/25 22:31 0 mls/hr .Q24H ONE Infusion Ondansetron HCl 4 mg 03/05/25 13:06 Ondansetron Inj 2 Mg/Ml Inj 2 Ml IVP 04/04/25 13:05 Q4HR PRN NAUSEA OR VOMITING Sucralfate 1 gm 03/06/25 17:00 03/08/25 07:55 Sucralfate Susp 1 Gm/10 Ml Udc PO 04/05/25 16:59 1 gm ACHS CLAUDE Administration Plan Mr. Rios is an 79-year-old male with a history of A-fib on Xarelto, hypertension, and polymyalgia rheumatica who presents to [facility] ED on 03/05 for generalized weakness and inability to walk. The patient was admitted for GI bleed. #Upper GI bleed with #Suspected lower GI bleed #Angiodysplasias of GI tract #Symptomatic anemia Patient was brought to ED due to generalized fatigue and difficulty waking on the morning of 03/05. When patient was brought to the ED, his RBC was 1.58, hemoglobin 5.7, and hematocrit was 17.2. The patient endorsed black tarry stools that started about 2 to 3 weeks ago, but has only had this acute weakness on 03/05. ? Protonix drip (03/05--) ? Consulted GI ? Initial EGD showed angiodysplastic bleeding in gastric body and gastric fundus, requiring cautery and clipping. ? Repeat EGD 03/07, which showed no additional bleeding ? Colonoscopy planned for 03/08 ? 2 units of blood ordered 03/05, repeat H&H ordered after transfusion; addition 2 units of blood ordered 03/07 with repeat H&H. ? Will hold home benazepril, clonidine, furosemide, Xarelto until bleeding has stabilized ? Investigating causes of angiodysplasias ? Patient denies history of abnormal bleeding in family history, so hereditary hemorrhagic telangiectasias less likely ? Echocardiogram pending to identify possible cardiac vulvular stenosis #Altered mentation (resolved) ddx TIA, CVA, metabolic encephalopathy Patient notably brought to the ED with concerns of potential stroke due to generalized fatigue and difficulty walking that had sudden onset this morning. Patient is oriented to person time and place, but responses much slower than usual. Neurology was consulted, who did not believe that this is an acute stroke. Neurology recommended workup for metabolic encephalopathy. ? Neurochecks every 4 hours ? Bedside swallow eval ? Head of bed 30 degrees ? Ordered digoxin, TSH, free T4, vitamin B12, and folate levels for metabolic workup ? Will continue to monitor, if symptoms do not improve with correction of underlying metabolic derangement, will consider MRI brain and EEG per neurology recommendations #A-fib, on Xarelto and digoxin, rate controlled Patient has a history of atrial fibrillation and sees senior planning analyst Dr. Colon for management. Patient is currently on Xarelto and digoxin. Asked pharmacy about digoxin dosing and they confirmed 0.125 mg daily while patient's family states that the patient takes 0.125 mg Friday and Friday. Contacted Dr. Colon for confirmation, and he stated that the patient was okay taking 0.125 mg Friday. CHADS-VASC score 4 (stroke risk 4.8% per year) HAS-BLED score 3 (bleed risk 5.8%, patient is at high risk for major bleeding) ? Restarted home Digoxin 0.125 mg Friday schedule ? Gave patient one-time dose digoxin 0.125 mg on 03/08 # VANNA on CKD likely prerenal (resolving) In the ED, the patient had a BUN of 85, creatinine of 2.1, and GFR of 31. Patient does not have any known history of CKD. This is likely due to acute loss of blood due to GI bleed, resulting in decreased blood flow to the kidneys, which led to VANNA. This is expected to resolve with resuscitation by blood products. -Per chart reviewing pt have history of CKD with Cr around 1.4-1.7 ? Renally dose medications ? Avoid nephrotoxic medications ? Will hold off on IV fluid hydration given significantly decreased H&H on admission #?CHF Patient does not have a documented history of CHF, but patient takes furosemide 20 mg p.o. daily at home. Echocardiogram done on 04/30/2018 showed EF of 50% with moderate mitral regurgitation. ? Will hold patient's home furosemide given current GI bleed ? Strict ins and outs ? Daily weights ordered #Primary Hypertension Patient has a history of hypertension. Patient takes benazepril 40 mg daily and clonidine 0.2 mg 3 times daily at home. ? Will hold patient's home antihypertensives given current GI bleed ? Will monitor blood pressure closely DVT Prophylaxis: SCDs GI Prophylaxis: Protonix drip Bowel: N/A Diet: Full liquid, cardiac diet Justin: N/A Lines: Peripheral IV Antibiotics: N/A Code Status: FULL Reason for Hospitalization: GI bleed Other Barriers to Discharge: Colonoscopy Patient plan of care was discussed with the senior resident Dr. Winters (PGY-2) and attending physician Dr. Ross. Jhon Levine, PGY1
--- NOTE | 2025-03-08 14:09 | XR_ITS ---
Examination: CT brain head without contrast. 2-D sagittal coronal reconstructions Date and time of exam:March 08, 2025 1429 hours INDICATIONS: Stroke alert, new onset altered mental status slurred speech left-sided body weakness today COMPARISON: March 05, 2025 CTDI: vol (mGy):20.4 DLP: (mGycm):1030 Technique: Multiple CT axial sections of the brain have been obtained, 5 mm slice thickness. Contrast has not been administered. 2-D sagittal, coronal reconstructions have been obtained Low dose protocols were performed. One or more of the following dose reduction techniques were used; automated exposure control, adjustment of the mA and/or KV according to patient size, use of iterative reconstruction technique. Findings: No significant ventricular enlargement. No change in low density area in the right basal ganglia, axial image 21, compared with March 05, 2025 Intra-axial or extra-axial hemorrhage density is not seen. No mass effect or midline shift Basal cisterns are not remarkable. Fourth ventricle is midline. Cranial vault intact. 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
--- NOTE | 2025-03-08 14:28 | XR_ITS ---
Examination: CTA carotids with intravenous contrast CTA brain, head with intravenous contrast. 2-D sagittal, coronal reconstructions. 3-D reconstructions. Exam date and time: March 08, 2025 1436 hours INDICATIONS: Stroke alert, onset left-sided body weakness today CTDI: vol (mGy) 24.7 DLP: (mGycm) 497 Technique: Multiple CTA axial brain, head carotid images post intravenous contrast injection 75 cc, [id number]. 2-D sagittal, coronal reconstructions. 3-D reconstructions, 3-D post processing including vascular maximum intensity projection images. Low dose protocols were performed. One or more of the following dose reduction techniques were used; automated exposure control, adjustment of the mA and/or KV according to patient size, use of iterative reconstruction technique. Findings: Heavy calcification right carotid bifurcation, 40% stenosis right carotid bifurcation origin right internal carotid artery Heavy calcification left carotid bifurcation, 20% stenosis carotid bifurcation origin internal carotid artery Atretic right vertebral artery which is grossly patent No cerebral large vessel arterial occlusions or thrombus IMPRESSION: No critical carotid artery stenoses No cerebral large vessel arterial occlusions or thrombus
--- NOTE | 2025-03-08 14:28 | PC.SS ---
Rounding Note: Plan is for patient to obtain colonoscopy.
--- NOTE | 2025-03-08 14:29 | PC.SS ---
Rapid response initiated on the patient due to AMS. Stroke alert also initiated on behalf of the patient.
[2025-03-08 14:43] LABS: Lactate (Lactic Acid) 1.8 mMol/L (0.4-2.0)
[2025-03-08 14:46] LABS: Basophils # (Auto) 0.0 Thou/mm3 (0.0-0.2); Basophils % (Auto) 1 % (0-2.5); Eosinophils # (Auto) 0.0 Thou/mm3 (0.0-0.5); Eosinophils % (Auto) 0 % (0-10); Hematocrit 23.4 % (41.0-53.0); Immature Granulocytes Auto 0.02 Thou/mm3 (0.00-0.00); Lymphocytes # (Auto) 0.5 Thou/mm3 (1.0-4.8); Lymphocytes % (Auto) 10 % (10-50); Mean Corpuscular HGB Conc 32.9 g/dl (31.0-37.0); Mean Corpuscular Hemoglobin 31.7 pg (25.0-35.0); Mean Corpuscular Volume 96 fL (80-100); Monocytes # (Auto) 0.6 Thou/mm3 (0.0-0.8); Monocytes % (Auto) 12 % (0-12); Neutrophils # (Auto) 3.4 Thou/mm3 (1.8-7.7); Neutrophils % (Auto) 76 % (37-80); Nucleated Red Blood Cell # 0.00 Thou/mm3 (0.00-0.00); Nucleated Red Blood Cell % 0 /100 WBC (0); Platelet Count 137 Thou/mm3 (140-440); RDW Standard Deviation 85.8 fL (35.1-43.9); Red Blood Count 2.43 Miln/mm3 (4.50-5.90); White Blood Count 4.5 Thou/mm3 (3.8-10.6)
[2025-03-08 14:59] LABS: Hemoglobin 7.7 g/dL (13.5-16.0)
--- NOTE | 2025-03-08 15:00 | PD.TNEURO ---
Tele Neuro Consultation Consultation Date 03/08/25 Most Recent Vital Signs Last Vital Signs Temp 98.5 F 03/08/25 12:00 Pulse 98 03/08/25 12:00 Resp 22 H 03/08/25 12:00 BP 158/99 H 03/08/25 12:00 Pulse Ox 98 03/08/25 12:00 O2 Del Method Nasal Cannula 03/08/25 12:00 O2 Flow Rate 3 03/08/25 12:00 Laboratory-Coagulation Panel PT 14.6 Seconds (9.0-12.2) H 03/05/25 13:17 INR 1.4 (0.9-1.3) H 03/05/25 13:17 APTT 27.4 Seconds (22.0-36.0) 03/05/25 13:17 Consultation Narrative [facility] Tele[facility]urology Consult [facility] Patient Name:???Devan Rios Date of :???1945 Identification Number:??? Date of Service:???03/08/2025 14:21:24 Diagnosis:?G93.49 - Encephalopathy Multifactorial Impression: ?79-year-old man with history of hypertension, hyperlipidemia, atrial fibrillation (previously on Xarelto but on hold due to GI bleed), who had presented to the hospital on 03/05 with generalized weakness and encephalopathy, found to have active GI bleed with symptomatic anemia and acute kidney injury. Apparently he had improved, but then at 1:30 PM he had abrupt change in mentation, with difficulty speaking/word finding difficulty/dysarthria. On examination, patient is inattentive/restless, does appear to be having difficulty speaking although able to identify a few basic objects. He is moving both arms and legs symmetrically, no gaze preference either. Repeat CT of the head without contrast did not show acute abnormalities. Patient is not thrombolytic candidate due to GI bleed. CTA head/neck pending to exclude possibility of LVO, although overall suspicion at this point is for metabolic encephalopathy, potentially sepsis considering the new fever from this afternoon. ? ?If no LVO on the CTA, would then continue ongoing medical evaluation and management of patient's GI bleed and fever/infectious workup. Should patient not return to baseline, would then suggest MRI of the brain without contrast to rule out stroke as well as a routine EEG. Sign Out: ? Discussed with Emergency Department Provider Advanced Imaging:Advanced imaging has been ordered. Results pending. Metrics: Last Known Well: 03/08/2025 13:30:00 Dispatch Time: 03/08/2025 14:21:23 Initial Response Time: 03/08/2025 14:23:59Symptoms: difficulty speaking, dysarthria, confusion. Initial patient interaction: 03/08/2025 14:28:00 NIHSS Assessment Completed: 03/08/2025 14:37:00Patient is not a candidate for Thrombolytic. Thrombolytic Medical Decision: 03/08/2025 14:39:00Patient was not deemed candidate for Thrombolytic because of following reasons: Recent gastrointestinal or urinary tract hemorrhage (within previous 21 days) . CT Head: I personally reviewed all the CT images that were available to me and it showed: No acute intracranial abnormalities Primary Provider Notified of Diagnostic Impression and Management Plan on: 03/08/2025 14:44:37 Spoke With: Dr. Abner chilel camera Able to Reach 03/08/2025 14:44:37 History of Present Illness:Patient is a 79 year old Male. Inpatient stroke alert was called for symptoms of difficulty speaking, dysarthria, confusion. Patient is unable to provide history due to altered mentation. History is as per bedside staff as well as chart review. He initially presented to the hospital on 03/05 with generalized weakness, inability to walk and more lethargic than normal. On initial workup, noted to have critically low hemoglobin of 5.7, along with acute kidney injury with BUN 85, creatinine 2.1. He was diagnosed with an active GI bleed with symptomatic anemia. He has been receiving blood transfusions, underwent EGD showing angiodysplasia. Xarelto has been on hold. Teleneurology was consulted yesterday for altered mentation, suspected to to have metabolic encephalopathy. Patient's mentation apparently was better earlier today, but then at 1:30 PM somewhat he seemed to be having difficulty speaking, with word finding difficulties, dysarthria, also noted to have a fever of 101 ?F. Stroke alert activated. At the time of my assessment, patient is restless, inattentive, unable to communicate in a meaningful way at this time. ? Past Medical History: ?Hypertension ?Hyperlipidemia ?Atrial Fibrillation ?There is no history of Diabetes Mellitus Other PMH:? TIA; PMR; alcohol use disorder; BPH with urinary obstruction Medications: No Anticoagulant use? No Antiplatelet use Reviewed EMR for current medications Allergies:? Reviewed Social History: Smoking: Yes Alcohol Use: Yes Family History: There is no family history of premature cerebrovascular disease pertinent to this consultation ROS : 14 Points Review of Systems was performed and was negative except mentioned in HPI. Past Surgical History: There Is No Surgical History Contributory To Today?s Visit ? Examination: BP(184/102),?Pulse(111), 1A: Level of Consciousness - Arouses to minor stimulation?+ 1 1B: Ask Month and Age - Could Not Answer Either Question Correctly?+ 2 1C: Blink Eyes & Squeeze Hands - Performs 1 Task?+ 1 2: Test Horizontal Extraocular Movements - Normal?+ 0 3: Test Visual Tony - No Visual Loss?+ 0 4: Test Facial Palsy (Use Grimace if Obtunded) - Normal symmetry?+ 0 5A: Test Left Arm Motor Drift - No Drift for 10 Seconds?+ 0 5B: Test Right Arm Motor Drift - No Drift for 10 Seconds?+ 0 6A: Test Left Leg Motor Drift - No Drift for 5 Seconds?+ 0 6B: Test Right Leg Motor Drift - No Drift for 5 Seconds?+ 0 7: Test Limb Ataxia (FNF/Heel-Ferrell) - Does Not Understand?+ 0 8: Test Sensation - Normal; No sensory loss?+ 0 9: Test Language/Aphasia - Mild-Moderate Aphasia: Some Obvious Changes, Without Significant Limitation?+ 1 10: Test Dysarthria - Mild-Moderate Dysarthria: Slurring but can be understood?+ 1 11: Test Extinction/Inattention - No abnormality?+ 0 NIHSS Score:?6 NIHSS Free Text :?able to name a few objects, but reduced spontaneous language output, speech hard to understand, also inattentive and restless Pre-Morbid Modified Carson Scale:Unable to assess Spoke with :?Dr. Levine over camera Consent could not be obtained due to patient status and family not available. Patient is being evaluated for possible acute neurologic impairment and high probability of imminent or life-threatening deterioration. I spent total of 37 minutes providing care to this patient, including time for face to face visit via telemedicine, review of medical records, imaging studies and discussion of findings with providers, the patient and/or family. Dr Rosendo Richter [facility] For Inpatient follow-up with [facility] physician please call [facility] at . As we are not an outpatient service for any post hospital discharge needs please contact the hospital for assistance. If you have any questions for the [facility] physicians or need to reconsult for clinical or diagnostic changes please contact us via [facility] at . Signature :?Rosendo Richter ?
[2025-03-08 15:12] LABS: Alanine Aminotransferase 16 U/L (10-49); Albumin, Serum 3.3 gm/dL (3.4-4.8); Albumin/Globulin Ratio 1.5 (1.2-2.2); Alkaline Phosphatase 39 U/L (46-116); Anion Gap 10 (7-16); Aspartate Amino Transferase 25 U/L (0-34); BUN/Creatinine Ratio 13 Ratio (12-20); Bilirubin,Total 1.0 mg/dL (0.3-1.2); Blood Urea Nitrogen 18 mg/dL (9-23); Calcium 8.0 mg/dL (8.3-10.6); Calcium (Corrected) 8.6 mg/dL (8.5-10.1); Carbon Dioxide 22.4 mMol/L (20.0-31.0); Chloride 112 mMol/L (98-107); Creatinine (Component) 1.4 mg/dL (0.6-1.3); Estimated Creatinine Clearance 46.2 mL/min (>60); Globulin 2.2 gm/dL (2.3-3.5); Glucose 131 mg/dL (74-106); Magnesium 1.8 mg/dL (1.6-2.6); Osmolality,Calculated 290 (275-295); Potassium 3.8 mMol/L (3.4-5.1); Procalcitonin 0.14 ng/ml (0.0-0.49); Sodium 144 mMol/L (136-145); Total Protein 5.5 gm/dL (5.7-8.2); eGFR 51 See Note
--- NOTE | 2025-03-08 15:16 | PD.RESEVENT ---
Documentation for date of: 03/08/25 Event Note Event Note: Rapid Response Room:?264 Time:?14:05 Reason for Call:?Altered mental status Patient presentation:? Patient was in room, non-distressed. Vitals: 101.4F, BP 184/102, HR 110, RR 17, O2 sat 98% on 3L NC. Bedside glucose 114. Patient was moving all extremities, but not responding appropriately to questions and commands. Pt is A&Ox1, currently confused and have slurred speech. Events: Stroke Alert is called Attempted to perform neuro exam but patient not cooperative to commands. Patient slurring and stuttering speech. Last known well around 13:00-13:30 per patient's spouse. Patient A&O x1. Patient could not identify date or place Rapid upgraded to code stroke, took patient to get CT head and CTA of head/neck and teleneuro is consulted Teleneurologist Dr. Richter consulted. Recommended CTA in addition to CT head. No MRI head recommended at this time. Patient taken to room 268 to be closer in proximity to the nursing station. Assessment:?Acute onset altered mental status New orders:? - CBC - CMP - Blood cultures x2 - CT head w/o con - Lactate - Procalcitonin - Magnesium Patient was discussed with the attending, Dr. Ross, and senior resident Dr. Winters , PGY-2 . Jhon Levine, PGY-1
[2025-03-08] MEDS: PANTOPRAZOLE/NS 80MG IV PREMIX 80 MG/100 ML BAG 10 MG IV (16:29)
[2025-03-08] MEDS: ATORVASTATIN CALCIUM 20 MG TABLET 40 MG PO (20:15)
[2025-03-08] MEDS: NA SU/NAHCO3/KC/PEG (Golytely) 4,000 ML BTL 4000 ML PO (20:15)
--- NOTE | 2025-03-08 20:26 | ESPR_ITS ---
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 Exam Vital Signs Temp Pulse Resp BP Pulse Ox O2 Del Method O2 Flow Rate 99 F 109 H 29 H 173/93 H 96 Nasal Cannula 3 03/08/25 17:45 03/08/25 16:00 03/08/25 16:00 03/08/25 16:00 03/08/25 16:00 03/08/25 16:00 03/08/25 16:00 Objective Labs 03/08/25 14:36 03/08/25 14:36 Labs: Laboratory Results - last 24 hr 03/07/25 03/08/25 03/08/25 20:25 06:05 14:36 WBC 5.1 4.5 RBC 2.44 L 2.43 L Hgb 7.5 L 7.8 L 7.7 L Hct 22.9 L 23.7 L 23.4 L MCV 97 96 MCH 32.0 31.7 MCHC 32.9 32.9 RDW Std Deviation 84.4 H 85.8 H Plt Count 130 L 137 L Neut % (Auto) 73 76 Lymph % (Auto) 11 10 Beauregard % (Auto) 15 H 12 Eos % (Auto) 0 0 Baso % (Auto) 1 1 Neut # (Auto) 3.7 3.4 Lymph # (Auto) 0.6 L 0.5 L Beauregard # (Auto) 0.7 0.6 Eos # (Auto) 0.0 0.0 Baso # (Auto) 0.0 0.0 Immature Gran # (Auto) 0.04 H 0.02 H Absolute Nucleated RBC 0.00 0.00 Immature Gran % 1 H 0 Nucleated RBC % 0 0 Sodium 148 H 144 Potassium 4.0 3.8 Chloride 116 H 112 H Carbon Dioxide 22.5 22.4 Anion Gap 10 10 BUN 19 18 Creatinine 1.4 H 1.4 H Estim Creat Clear Calc 47.6 L 46.2 L eGFR 51 L 51 L BUN/Creatinine Ratio 14 13 Glucose 136 H 131 H Calculated Osmolality 298 H 290 Lactic Acid 1.8 Calcium 8.5 8.0 L Corrected Calcium 8.9 8.6 Phosphorus 2.8 Magnesium 2.6 1.8 Total Bilirubin 0.9 1.0 AST 24 25 ALT 17 16 Alkaline Phosphatase 38 L D 39 L Total Protein 5.7 5.5 L Albumin 3.5 D 3.3 L Globulin 2.2 L 2.2 L Albumin/Globulin Ratio 1.6 1.5 Procalcitonin 0.14 Impressions Impression: # GI bleeding # No evidence of any recent stroke but I postpone the colonoscopy to further observe the patient for the next 24 hours before scheduling a colonoscopy Continue current management ABG Interpretation ABG results: 03/05/25 13:17 VBG pH 7.39 VBG pCO2 36 VBG pO2 31 VBG Base Excess -3 Assessment & Plan A&P Narrative # Acute posthemorrhagic anemia # melena Plan IV Protonix N.p.o. midnight tonight Agree with a blood transfusion Consent obtained for fiberoptic esophagogastroduodenoscopy with possible therapeutic intervention under intravenous moderate sedation tentatively scheduled for tomorrow Serial CBC Other medical problems include Polymyalgia rheumatica continue prednisone Atrial fibrillation on Xarelto. Xarelto on hold till the upper endoscopy Thank you very much for the opportunity to participate in the care of this patient Time Spent With Patient Time: Total time spent is greater than 50% in coordination of care (as documented) at patient's floor/unit and/or counseling patient:
[2025-03-09] VITALS (27 sets, daily range): BP systolic 114–167; BP diastolic 67–101; PULSE 80–121; RESP 15–23; TEMP 36.4–38.7; O2SAT 92–100; BMI 24.5
[2025-03-09] MEDS: ACETAMINOPHEN 325 MG TABLET 650 MG PO ×3 (00:03→23:08)
[2025-03-09] MEDS: MG HYD/AL HYD/SIME (Maalox Reg) SUSP 30 ML UDC 15 ML PO ×4 (02:37→14:51)
[2025-03-09 06:13] LABS: Basophils # (Auto) 0.0 Thou/mm3 (0.0-0.2); Basophils % (Auto) 1 % (0-2.5); Eosinophils # (Auto) 0.0 Thou/mm3 (0.0-0.5); Eosinophils % (Auto) 0 % (0-10); Hematocrit 23.6 % (41.0-53.0); Immature Granulocytes Auto 0.02 Thou/mm3 (0.00-0.00); Lymphocytes # (Auto) 0.7 Thou/mm3 (1.0-4.8); Lymphocytes % (Auto) 16 % (10-50); Mean Corpuscular HGB Conc 31.8 g/dl (31.0-37.0); Mean Corpuscular Hemoglobin 31.3 pg (25.0-35.0); Mean Corpuscular Volume 98 fL (80-100); Monocytes # (Auto) 0.7 Thou/mm3 (0.0-0.8); Monocytes % (Auto) 15 % (0-12); Neutrophils # (Auto) 3.1 Thou/mm3 (1.8-7.7); Neutrophils % (Auto) 68 % (37-80); Nucleated Red Blood Cell # 0.00 Thou/mm3 (0.00-0.00); Nucleated Red Blood Cell % 0 /100 WBC (0); Platelet Count 119 Thou/mm3 (140-440); RDW Standard Deviation 83.8 fL (35.1-43.9); Red Blood Count 2.40 Miln/mm3 (4.50-5.90); White Blood Count 4.6 Thou/mm3 (3.8-10.6)
[2025-03-09 06:18] LABS: Hemoglobin 7.5 g/dL (13.5-16.0)
[2025-03-09 06:40] LABS: Alanine Aminotransferase 12 U/L (10-49); Albumin, Serum 3.2 gm/dL (3.4-4.8); Albumin/Globulin Ratio 1.6 (1.2-2.2); Alkaline Phosphatase 37 U/L (46-116); Anion Gap 11 (7-16); Aspartate Amino Transferase 21 U/L (0-34); BUN/Creatinine Ratio 11 Ratio (12-20); Bilirubin,Total 0.8 mg/dL (0.3-1.2); Blood Urea Nitrogen 14 mg/dL (9-23); Calcium 7.9 mg/dL (8.3-10.6); Calcium (Corrected) 8.5 mg/dL (8.5-10.1); Carbon Dioxide 24.5 mMol/L (20.0-31.0); Chloride 110 mMol/L (98-107); Creatinine (Component) 1.3 mg/dL (0.6-1.3); Estimated Creatinine Clearance 49.7 mL/min (>60); Globulin 2.0 gm/dL (2.3-3.5); Glucose 116 mg/dL (74-106); Magnesium 1.8 mg/dL (1.6-2.6); Osmolality,Calculated 290 (275-295); Phosphorous 3.2 mg/dL (2.4-5.1); Potassium 3.7 mMol/L (3.4-5.1); Sodium 145 mMol/L (136-145); Total Protein 5.2 gm/dL (5.7-8.2); eGFR 56 See Note
[2025-03-09] MEDS: Magnesium Sulfate 4 GM Ivpb 4 GM/50 ML BAG IV (07:51)
[2025-03-09] MEDS: SUCRALFATE SUSP 1 GM/10 ML UDC PO ×2 (07:51→10:55)
--- NOTE | 2025-03-09 09:33 | ESPR_ITS ---
<Statement entered by Nathan Ross MD - 03/21/25 07:42> I reviewed above note and agree with findings and plans. I have also personally examined the patient with medicine team and went over assessment and plan with medical team including internet project manager and resident physician. <Statement entered by Jessica Kelly MD - 03/09/25 13:21> Patient was seen and examined at bedside. I agree on the assessment and plan on this note as documented by resident Jhon Levine PGY1. 79-year-old male with past medical history as below, is alert and oriented x 3 today, engages in conversation. Patient's H&H is stable, still on GoLytely prep continues to have brown-tinged stool however we will continue with GoLytely prep is scheduled for colonoscopy. Patient's home dose digoxin was resumed, continue digoxin for underlying atrial fibrillation, telemetry reviewed patient remains in persistent A-fib. Patient was also evaluated by general surgery, they agree with current management. Patient continues to have subclinical fevers, did have recent blood transfusion, will continue to monitor, otherwise patient does have left upper extremity edema we will obtain ultrasound, patient does have polymyalgia rheumatica however low clinical suspicion of acute exacerbation versus GCA. Disposition telemetry, continue GI bleed workup. Case discussed with attending Dr. Ross. Jessica Kelly MD PGY-2 Documentation for date of: 03/09/25 Subjective Subjective Interval history: Overnight events: No acute events overnight. Patient was seen and examined at bedside. AM vitals and labs reviewed. Patient was awake and alert, moving all extremities, and was joking around today. Patient seemed more alert compared to yesterday morning and significant improved compared to yesterday during this rapid response. According to the patient's , he is significantly proved as well and better compared to yesterday. Labs drawn during rapid response were not significant for his markers of acute infection. Dixon test negative, so delayed hemolytic transfusion reaction less likely. Patient afebrile overnight, but did run a fever this afternoon. Patient was asymptomatic and had no complaints during his febrile episode. Patient stools still dark brown even on second jug of GoLytely. Left arm noted to be swollen, erythematous, tender to touch, and dark discoloring present. This is primarily on the posterior aspect of his arm, above the elbow, around the area of his triceps. Pending colonoscopy from GI. May not be able to do it today depending on stool color. Will order another jug of GoLytely and prep for colonoscopy tomorrow if this is the case. Ultrasound of left upper extremity ordered to rule out possible thrombus in left arm. Review of systems otherwise negative except for what is mentioned above. Exam Vital Signs Temp Pulse Resp BP Pulse Ox O2 Del Method O2 Flow Rate 98.3 F 80 18 144/96 H 98 Nasal Cannula 3 03/09/25 08:00 03/09/25 08:00 03/09/25 08:00 03/09/25 08:00 03/09/25 08:00 03/09/25 08:00 03/09/25 08:00 Narrative Exam Physical Exam: General: Alert, no acute distress. Skin: Warm, dry, intact, no obvious rash. Head: Normocephalic, atraumatic. Eye: Normal conjunctiva, PERRL. Throat: Oral mucosa moist. No obvious lesions in oropharynx. Cardiovascular: Regular rate and rhythm, soft systolic murmur best heard over tricuspid region, +S1/S2. Respiratory: Lungs are clear to auscultation, respirations unlabored, no crackles, no wheezing. Gastrointestinal: Soft, nontender, non-distended. No guarding or rebound tenderness. Extremities: No edema, no cyanosis, no clubbing. Left arm swollen, erythematous, tender, and dark discoloring present, primarily over posterior aspect of upper arm. Neuro: No focal deficits observed. Conversant, moving all extremities. No overt cerebellar signs/incoordination. Psychiatric: Cooperative, appropriate affect. Objective Labs 03/09/25 05:55 03/09/25 05:55 Labs: Laboratory Results - last 24 hr 03/08/25 03/08/25 03/09/25 14:36 18:30 05:55 WBC 4.5 4.6 RBC 2.43 L 2.40 L Hgb 7.7 L 7.5 L Hct 23.4 L 23.6 L MCV 96 98 MCH 31.7 31.3 MCHC 32.9 31.8 RDW Std Deviation 85.8 H 83.8 H Plt Count 137 L 119 L Neut % (Auto) 76 68 Lymph % (Auto) 10 16 Brown % (Auto) 12 15 H Eos % (Auto) 0 0 Baso % (Auto) 1 1 Neut # (Auto) 3.4 3.1 Lymph # (Auto) 0.5 L 0.7 L Brown # (Auto) 0.6 0.7 Eos # (Auto) 0.0 0.0 Baso # (Auto) 0.0 0.0 Immature Gran # (Auto) 0.02 H 0.02 H Absolute Nucleated RBC 0.00 0.00 Immature Gran % 0 0 Nucleated RBC % 0 0 Sodium 144 145 Potassium 3.8 3.7 Chloride 112 H 110 H Carbon Dioxide 22.4 24.5 Anion Gap 10 11 BUN 18 14 Creatinine 1.4 H 1.3 Estim Creat Clear Calc 46.2 L 49.7 L eGFR 51 L 56 L BUN/Creatinine Ratio 13 11 L Glucose 131 H 116 H Calculated Osmolality 290 290 Lactic Acid 1.8 Calcium 8.0 L 7.9 L Corrected Calcium 8.6 8.5 Phosphorus 3.2 Magnesium 1.8 1.8 Total Bilirubin 1.0 0.8 AST 25 21 ALT 16 12 Alkaline Phosphatase 39 L 37 L Total Protein 5.5 L 5.2 L Albumin 3.3 L 3.2 L Globulin 2.2 L 2.0 L Albumin/Globulin Ratio 1.5 1.6 Procalcitonin 0.14 Direct Antiglob Test Negative ABG Interpretation ABG results: 03/05/25 13:17 VBG pH 7.39 VBG pCO2 36 VBG pO2 31 VBG Base Excess -3 Quality Measures Quality Measures none Advance care planning discussed with:: patient and spouse Assessment & Plan Assessment Current Active Medications: Generic Name Dose Route Start Last Admin Trade Name Freq PRN Reason Stop Dose Admin Acetaminophen 650 mg 03/05/25 15:28 03/09/25 00:03 Acetaminophen 325 Mg Tablet PO 04/04/25 15:27 650 mg Q6H PRN Administration Fever >101.5 or pain (1-3) Al Hydrox/Mg Hydrox/Simethicone 15 ml 03/06/25 18:00 03/09/25 05:06 Mg Hyd/Al Hyd/Mei (Maalox Reg) Susp 30 Ml Udc PO 04/05/25 17:59 15 ml Q4HR CLAUDE Administration Atorvastatin Calcium 40 mg 03/05/25 21:00 03/08/25 20:15 Atorvastatin Calcium 20 Mg Tablet PO 04/04/25 20:59 40 mg HS CLAUDE Administration Digoxin 0.125 mg 03/09/25 09:00 Digoxin 0.125 Mg Tablet PO 04/08/25 08:59 [id number] CLAUDE Magnesium Sulfate 4 gm in 50 mls @ 12.5 mls/hr 03/09/25 07:44 03/09/25 07:51 Magnesium Sulfate Ivpb IV 03/09/25 11:43 12.5 mls/hr X1 ONE Administration Ondansetron HCl 4 mg 03/05/25 13:06 Ondansetron Inj 2 Mg/Ml Inj 2 Ml IVP 04/04/25 13:05 Q4HR PRN NAUSEA OR VOMITING Sucralfate 1 gm 03/06/25 17:00 03/09/25 07:51 Sucralfate Susp 1 Gm/10 Ml Udc PO 04/05/25 16:59 1 gm ACHS CLAUDE Administration Plan Mr. Rios is an 79-year-old male with a history of A-fib on Xarelto, hypertension, and polymyalgia rheumatica who presents to [facility] ED on 03/05 for generalized weakness and inability to walk. The patient was admitted for GI bleed. #Upper GI bleed with #Suspected lower GI bleed #Angiodysplasias of GI tract #Symptomatic anemia Patient was brought to ED due to generalized fatigue and difficulty waking on the morning of 03/05. When patient was brought to the ED, his RBC was 1.58, hemoglobin 5.7, and hematocrit was 17.2. The patient endorsed black tarry stools that started about 2 to 3 weeks ago, but has only had this acute weakness on 03/05. ? Protonix drip (03/05--) ? Consulted GI ? Initial EGD showed angiodysplastic bleeding in gastric body and gastric fundus, requiring cautery and clipping. ? Repeat EGD 03/07, which showed no additional bleeding ? Colonoscopy planned for 03/08, delayed to 03/09 due to dark stools with GoLytely ? 2 units of blood ordered 03/05, repeat H&H ordered after transfusion; addition 2 units of blood ordered 03/07 with repeat H&H. ? Will hold home benazepril, clonidine, furosemide, Xarelto until bleeding has stabilized ? Investigating causes of angiodysplasias ? Patient denies history of abnormal bleeding in family history, so hereditary hemorrhagic telangiectasias less likely ? Echocardiogram pending to identify possible cardiac vulvular stenosis #Altered mentation (resolved) #Slurred speech (resolved) ddx TIA, CVA, metabolic encephalopathy Patient notably brought to the ED with concerns of potential stroke due to generalized fatigue and difficulty walking that had sudden onset this morning. Patient is oriented to person time and place, but responses much slower than usual. Neurology was consulted, who did not believe that this is an acute stroke. Neurology recommended workup for metabolic encephalopathy. Patient had acute onset slurred speech and AMS on 03/08 for which a rapid was called, which upgraded to code stroke. Patient had resolution of slurred speech and AMS 03/09 in the morning. ? Neurochecks every 4 hours ? Bedside swallow eval ? Head of bed 30 degrees ? Ordered digoxin, TSH, free T4, vitamin B12, and folate levels for metabolic workup ? Will continue to monitor, if symptoms do not improve with correction of underlying metabolic derangement, will consider MRI brain and EEG per neurology recommendations ? Neurology consulted for rapid response evolved into code stroke ? CT head without contrast negative for acute stroke, CTA head and neck negative for acute stroke ? Neurology believes that this is most likely metabolic encephalopathy, does not recommend MRI at this time unless patient does not return to baseline ? Patient's fever associate with episode of slurred speech it is possibly due to posttransfusion reaction, will continue to monitor #A-fib, on Xarelto and digoxin, rate controlled Patient has a history of atrial fibrillation and sees estimator project manager Dr. Colon for management. Patient is currently on Xarelto and digoxin. Asked pharmacy about digoxin dosing and they confirmed 0.125 mg daily while patient's family states that the patient takes 0.125 mg Friday and Friday. Contacted Dr. Colon for confirmation, and he stated that the patient was okay taking 0.125 mg Friday. CHADS-VASC score 4 (stroke risk 4.8% per year) HAS-BLED score 3 (bleed risk 5.8%, patient is at high risk for major bleeding) ? Restarted home Digoxin 0.125 mg Friday schedule ? Gave patient one-time dose digoxin 0.125 mg on 03/08 # VANNA on CKD likely prerenal (resolving) In the ED, the patient had a BUN of 85, creatinine of 2.1, and GFR of 31. Patient does not have any known history of CKD. This is likely due to acute loss of blood due to GI bleed, resulting in decreased blood flow to the kidneys, which led to VANNA. This is expected to resolve with resuscitation by blood products. -Per chart reviewing pt have history of CKD with Cr around 1.4-1.7 ? Renally dose medications ? Avoid nephrotoxic medications ? Will hold off on IV fluid hydration given significantly decreased H&H on admission #?CHF Patient does not have a documented history of CHF, but patient takes furosemide 20 mg p.o. daily at home. Echocardiogram done on 04/30/2018 showed EF of 50% with moderate mitral regurgitation. ? Will hold patient's home furosemide given current GI bleed ? Strict ins and outs ? Daily weights ordered #Primary Hypertension Patient has a history of hypertension. Patient takes benazepril 40 mg daily and clonidine 0.2 mg 3 times daily at home. ? Will hold patient's home antihypertensives given current GI bleed ? Will monitor blood pressure closely DVT Prophylaxis: SCDs GI Prophylaxis: Protonix drip Bowel: N/A Diet: Full liquid, cardiac diet Justin: N/A Lines: Peripheral IV Antibiotics: N/A Code Status: FULL Reason for Hospitalization: GI bleed Other Barriers to Discharge: Colonoscopy Patient plan of care was discussed with the senior resident Dr. Kelly (PGY-2) and attending physician Dr. Ross. Jhon Levine, PGY1
--- NOTE | 2025-03-09 09:57 | PC.SS ---
Update: Colonoscopy is pending.
[2025-03-09] MEDS: DIGOXIN 0.125 MG TABLET PO (10:55)
--- NOTE | 2025-03-09 11:45 | XR_ITS ---
Examination: Duplex scan of the upper extremity, unilateral left Date and time of exam: March 09, 2025 1240 hours INDICATIONS: Discoloration redness and swelling with pain left arm today Technique: Duplex scan of the extremity veins using B-mode/grayscale imaging and Doppler spectral analysis and color flow Attention is directed to internal echogenicity, compression and augmentation involving these veins, color flow assessment, spectral analysis Findings: Major deep venous structures in the extremity demonstrate normal course and caliber. There is no evidence of deep vein thrombosis. Normal color flow and spectral analysis Impression: Negative for DVT.. Nonocclusive thrombus involving the superficial cephalic vein
--- NOTE | 2025-03-09 14:16 | PC.SS ---
Rounding Note: Colonoscopy is pending.
[2025-03-09 16:03] LABS: Vitamin B12 94 pg/mL (211-911)
--- NOTE | 2025-03-09 23:24 | XR_ITS ---
Examination: AP chest single view Technique one AP portable semiupright chest single view Date and time: March 10, 2025, 0005 hours Comparison March 07, 2025 INDICATIONS: Sepsis alert today. FINDINGS: Mild prominence left ventricle Moderate vascular congestion No lobar pneumonia The osseous structures are demineralized IMPRESSION: Moderate vascular congestion, no lobar pneumonia
--- NOTE | 2025-03-09 23:24 | EKG_ITS ---
[facility] Test Date: 2025-03-10 Pat Name: BIN BARNETT [facility] Gender: Male [employer]: MICHAEL : 1945 Requested By: Jonathan Wilson Order Number: [id number] Reading MD: Jonathan Wilson Measurements Intervals [place] Rate: 129 P: TX: QRS: 9 QRSD: 90 T: 257 QT: 273 QTc: 401 Interpretive Statements ATRIAL FIBRILLATION WITH RAPID VENTRICULAR RESPONSE NONSPECIFIC ST & T-WAVE ABNORMALITY Compared to ECG 03/05/2025 13:31:46 Ventricular premature complex(es) no longer present Aberrant conduction of supraventricular beat(s) no longer present Possible ischemia no longer present T-wave abnormality still present /store/S0/[id number].pdf
[2025-03-09 23:58] LABS: Lactate (Lactic Acid) 5.2 mMol/L (0.4-2.0)
[2025-03-10] VITALS (14 sets, daily range): BP systolic 113–158; BP diastolic 83–101; PULSE 109–153; RESP 8–48; TEMP 36.6–39.1; O2SAT 95–100; BMI 25.3
[2025-03-10 00:03] LABS: Base Excess -5 (-3-3); HCO3 18 mEq/L (20-26); Inspired Oxygen, FIO2 21 %; O2 Saturation 100 % (91-98); PCO2 27 mmHg (32.0-48.0); PO2 122 mmHg (83-108); pH, Arterial 7.45 (7.35-7.45)
[2025-03-10 00:05] LABS: Allen Test Performed/OK; Inspired O2, VO2 Liters 15 L/min; Puncture Site Right Radial
[2025-03-10 00:13] LABS: Basophils # (Auto) 0.1 Thou/mm3 (0.0-0.2); Basophils % (Auto) 1 % (0-2.5); Eosinophils # (Auto) 0.0 Thou/mm3 (0.0-0.5); Eosinophils % (Auto) 0 % (0-10); Hematocrit 24.8 % (41.0-53.0); Immature Granulocytes Auto 0.05 Thou/mm3 (0.00-0.00); Lymphocytes # (Auto) 1.1 Thou/mm3 (1.0-4.8); Lymphocytes % (Auto) 13 % (10-50); Mean Corpuscular HGB Conc 33.5 g/dl (31.0-37.0); Mean Corpuscular Hemoglobin 31.9 pg (25.0-35.0); Mean Corpuscular Volume 95 fL (80-100); Monocytes # (Auto) 0.6 Thou/mm3 (0.0-0.8); Monocytes % (Auto) 8 % (0-12); Neutrophils # (Auto) 6.6 Thou/mm3 (1.8-7.7); Neutrophils % (Auto) 79 % (37-80); Nucleated Red Blood Cell # 0.00 Thou/mm3 (0.00-0.00); Nucleated Red Blood Cell % 0 /100 WBC (0); Platelet Count 202 Thou/mm3 (140-440); RDW Standard Deviation 79.4 fL (35.1-43.9); Red Blood Count 2.60 Miln/mm3 (4.50-5.90); White Blood Count 8.4 Thou/mm3 (3.8-10.6)
[2025-03-10 00:15] LABS: Hemoglobin 8.3 g/dL (13.5-16.0)
[2025-03-10] MEDS: RINGERS LACTATED 2526 ML IV (00:17)
[2025-03-10] MEDS: ACETAMINOPHEN IVPB 1,000 MG/100 ML VIAL 250 MG IV ×2 (00:19→12:11)
--- NOTE | 2025-03-10 00:22 | PD.RESEVENT ---
Documentation for date of: 03/10/25 Event Note Event Note: Rapid response called at 2345 for tachypnea, tachycardia, and new fever 102.4. Sepsis alert was called, sepsis bolus 2.5 L normal saline ordered, sepsis labs ordered. Patient was trembling uncontrollably, mottling noted on the lower extremities. Lung sounds clear to auscultation bilaterally, despite tachypnea. 1 g IV Tylenol given, with fever improved to 100.5. Blood pressure difficult to get due to trampoline, varied between 200 systolic and 40 systolic. Suspect hypotension given mottling. Lactate elevated 5.2. ABG showed pH 7.45, pCO2 27, respiratory compensation for metabolic acidosis. EKG taken showed A-fib, heart rate 126, suspect tachycardia due to poor perfusion in setting of sepsis, will reevaluate after fluid bolus. Vanco and Zosyn initiated as broad-spectrum antibiotics after blood cultures were drawn. Rapid ended at approximately 0020, patient improved but will continue close monitoring. Plan of care discussed with attending Dr. Kim. Jonathan Villareal MD PGY-2
[2025-03-10 00:32] LABS: INR 1.1 (0.9-1.3); Partial Thromboplastin Time 22.1 Seconds (22.0-36.0); Prothrombin Time 11.6 Seconds (9.0-12.2)
[2025-03-10 00:43] LABS: Alanine Aminotransferase 15 U/L (10-49); Albumin, Serum 3.6 gm/dL (3.4-4.8); Albumin/Globulin Ratio 1.5 (1.2-2.2); Alkaline Phosphatase 43 U/L (46-116); Anion Gap 14 (7-16); Aspartate Amino Transferase 26 U/L (0-34); BUN/Creatinine Ratio 8 Ratio (12-20); Bilirubin,Total 1.1 mg/dL (0.3-1.2); Blood Urea Nitrogen 11 mg/dL (9-23); Calcium 8.3 mg/dL (8.3-10.6); Calcium (Corrected) 8.6 mg/dL (8.5-10.1); Carbon Dioxide 19.3 mMol/L (20.0-31.0); Chloride 105 mMol/L (98-107); Creatinine (Component) 1.3 mg/dL (0.6-1.3); Estimated Creatinine Clearance 49.7 mL/min (>60); Globulin 2.4 gm/dL (2.3-3.5); Glucose 152 mg/dL (74-106); Osmolality,Calculated 278 (275-295); Potassium 4.2 mMol/L (3.4-5.1); Procalcitonin 0.26 ng/ml (0.0-0.49); Sodium 138 mMol/L (136-145); Total Protein 6.0 gm/dL (5.7-8.2); eGFR 56 See Note
[2025-03-10] MEDS: PIPER/TAZO 3.375 GM PREMIX 3.375 GM/50 ML BAG IV (00:44)
[2025-03-10] MEDS: Vancomycin Inj 1,000 MG in SODIUM CHLORIDE 0.9% 250 ML 250 ML 150 MG IV (01:17)
[2025-03-10 02:52] LABS: Reflex Lactate? Y
[2025-03-10 03:20] LABS: Lactic Acid, 3 HR 1.6 mMol/L (0.4-2.0)
[2025-03-10 03:47] LABS: Alanine Aminotransferase 12 U/L (10-49); Albumin, Serum 3.1 gm/dL (3.4-4.8); Albumin/Globulin Ratio 1.5 (1.2-2.2); Alkaline Phosphatase 35 U/L (46-116); Anion Gap 9 (7-16); Aspartate Amino Transferase 22 U/L (0-34); BUN/Creatinine Ratio 10 Ratio (12-20); Bilirubin,Total 1.3 mg/dL (0.3-1.2); Blood Urea Nitrogen 13 mg/dL (9-23); Calcium 7.8 mg/dL (8.3-10.6); Calcium (Corrected) 8.5 mg/dL (8.5-10.1); Carbon Dioxide 23.6 mMol/L (20.0-31.0); Chloride 105 mMol/L (98-107); Creatinine (Component) 1.3 mg/dL (0.6-1.3); Estimated Creatinine Clearance 49.7 mL/min (>60); Globulin 2.1 gm/dL (2.3-3.5); Glucose 115 mg/dL (74-106); Magnesium 2.1 mg/dL (1.6-2.6); Osmolality,Calculated 276 (275-295); Phosphorous 2.3 mg/dL (2.4-5.1); Potassium 3.3 mMol/L (3.4-5.1); Sodium 138 mMol/L (136-145); Total Protein 5.2 gm/dL (5.7-8.2); eGFR 56 See Note
[2025-03-10 03:49] LABS: Basophils # (Auto) 0.0 Thou/mm3 (0.0-0.2); Basophils % (Auto) 0 % (0-2.5); Eosinophils # (Auto) 0.0 Thou/mm3 (0.0-0.5); Eosinophils % (Auto) 0 % (0-10); Hematocrit 22.0 % (41.0-53.0); Immature Granulocytes Auto 0.01 Thou/mm3 (0.00-0.00); Lymphocytes # (Auto) 0.3 Thou/mm3 (1.0-4.8); Lymphocytes % (Auto) 7 % (10-50); Mean Corpuscular HGB Conc 33.6 g/dl (31.0-37.0); Mean Corpuscular Hemoglobin 32.0 pg (25.0-35.0); Mean Corpuscular Volume 95 fL (80-100); Monocytes # (Auto) 0.4 Thou/mm3 (0.0-0.8); Monocytes % (Auto) 9 % (0-12); Neutrophils # (Auto) 3.3 Thou/mm3 (1.8-7.7); Neutrophils % (Auto) 83 % (37-80); Nucleated Red Blood Cell # 0.00 Thou/mm3 (0.00-0.00); Nucleated Red Blood Cell % 0 /100 WBC (0); Platelet Count 135 Thou/mm3 (140-440); RDW Standard Deviation 76.2 fL (35.1-43.9); Red Blood Count 2.31 Miln/mm3 (4.50-5.90); White Blood Count 3.9 Thou/mm3 (3.8-10.6)
[2025-03-10 04:06] LABS: Hemoglobin 7.4 g/dL (13.5-16.0)
[2025-03-10] MEDS: MG HYD/AL HYD/SIME (Maalox Reg) SUSP 30 ML UDC 15 ML PO ×5 (05:18→21:06)
[2025-03-10] MEDS: METOPROLOL TARTRATE INJ 1 MG/ML AMP 5 ML 2.5 MG IVP (05:18)
[2025-03-10] MEDS: VANCOMYCIN/NS 750 MG IVPB 750 MG/150 ML BAG 120 MG IV (08:53)
[2025-03-10] MEDS: SUCRALFATE SUSP 1 GM/10 ML UDC PO ×4 (08:53→20:15)
[2025-03-10] MEDS: NAPH,KPH MBDB 1 PACKET (1.5 GM) PO (08:53)
[2025-03-10] MEDS: ACETAMINOPHEN 325 MG TABLET 650 MG PO ×2 (08:54→19:35)
[2025-03-10] MEDS: RIVAROXABAN 10 MG, RIVAROXABAN 5 MG 15 MG PO (08:54)
--- NOTE | 2025-03-10 09:33 | ESPR_ITS ---
<Statement entered by Nathan Ross MD - 03/25/25 15:04> I reviewed above note and agree with findings and plans. I have also personally examined the patient with medicine team and went over assessment and plan with medical team including corporate development intern and resident physician. <Statement entered by Jessica Kelly MD - 03/11/25 05:14> Patient was seen and examined at bedside. I agree on the assessment and plan on this note as documented by resident Jhon Levine PGY1. 79-year-old male with past medical history as below, had rapid response overnight for tachycardia fever and elevated lactate, was given IV fluid bolus lactate was cleared, started on IV antibiotics per night team. Patient continues to have fevers, will use Tylenol and cooling measures. Ordered cocci, will continue antibiotics and will consult neurology, does have worsening of swelling in the left upper extremity upper extremity ultrasound was negative for any deep vein thrombus, there is some suspicion of cellulitis as redness and warmth noted. Pending neurology recommendations. Patient did undergo a colonoscopy, colonoscopy showed multiple bleeding colonic angiodysplastic lesions which were treated with argon plasma coagulation. Will continue to monitor H&H, Xarelto resumed per GI recommendations. Patient is pending echocardiogram, monitor respiratory status carefully as patient is on Lasix at home there is some suspicion of heart failure. Disposition telemetry pending further workup for underlying fevers. Case discussed with attending Dr. Jessica Kelly MD PGY-2 Documentation for date of: 03/10/25 Subjective Subjective Interval history: Overnight events: Patient had rapid response/sepsis alert called at 2345 for tachypnea, tachycardia, and fever of 102.4. Patient was noted to be trembling uncontrollably with elevated lactate at 5.2. Hypotension was suspected given mottling of legs. ABG showed metabolic acidosis with respiratory compensation. Vancomycin and piperacillin/tazobactam started after blood cultures drawn. Patient was seen and examined at bedside. AM vitals and labs reviewed. Patient was having difficulty speaking, similar to when code stroke was activated for the patient. Patient alert and oriented to person and time, but not place. Left arm swelling covers larger area today compared to yesterday with increased erythema, however black discoloration has improved. It is also no longer tender to touch. Leg mottling not appreciated. Lactic acid decreased from 5.2 during rapid to 1.6 on repeat draw. Chest x-ray negative for pneumonia. Heart rate noted to be 130 during visit. Colonoscopy performed yesterday showed multiple bleeding colonic angiodysplasias that were successfully cauterized. Restart patient's home Xarelto per recommendations by GI. Patient to follow-up with Dr. Bauer outpatient for further workup. Will continue to investigate causes of patient's fever of unknown source. Patient is on vancomycin and Zosyn. Maintenance fluid with LR. Cocci panel ordered. Neurology consulted for altered mental status investigation and recommendations about possible lumbar puncture. Review of systems otherwise negative except for what is mentioned above. Exam Vital Signs Temp Pulse Resp BP Pulse Ox O2 Del Method O2 Flow Rate 101 F H 115 H 24 H 140/101 H 98 Oxy Mask 3 03/10/25 08:54 03/10/25 08:00 03/10/25 08:00 03/10/25 08:00 03/10/25 08:00 03/10/25 08:00 03/10/25 08:00 Narrative Exam Physical Exam: General: Alert, no acute distress. Skin: Warm, intact, no obvious rash. Head: Normocephalic, atraumatic. Eye: Normal conjunctiva, PERRL. Throat: Oral mucosa dry. No obvious lesions in oropharynx. Cardiovascular: Regular rate and rhythm, soft systolic murmur best heard over tricuspid region, +S1/S2. Respiratory: Lungs are clear to auscultation, respirations unlabored, no crackles, no wheezing. Gastrointestinal: Soft, nontender, non-distended. No guarding or rebound tenderness. Extremities: No edema, no cyanosis, no clubbing. Left arm swollen, erythematous, non-tender, and dark discoloring present, primarily over posterior aspect of upper arm. Neuro: No focal deficits observed. Conversant, moving all extremities. No overt cerebellar signs/incoordination. Psychiatric: Cooperative, appropriate affect. Objective Labs 03/10/25 03:03 03/10/25 03:03 Labs: Laboratory Results - last 24 hr 03/06/25 03/09/25 03/09/25 04:08 23:46 23:54 WBC 8.4 D RBC 2.60 L Hgb 8.3 L Hct 24.8 L MCV 95 MCH 31.9 MCHC 33.5 RDW Std Deviation 79.4 H Plt Count 202 D Neut % (Auto) 79 Lymph % (Auto) 13 [place] % (Auto) 8 Eos % (Auto) 0 Baso % (Auto) 1 Neut # (Auto) 6.6 Lymph # (Auto) 1.1 [place] # (Auto) 0.6 Eos # (Auto) 0.0 Baso # (Auto) 0.1 Immature Gran # (Auto) 0.05 H Absolute Nucleated RBC 0.00 Immature Gran % 1 H Nucleated RBC % 0 PT 11.6 D INR 1.1 APTT 22.1 Puncture Site ABG pH ABG pCO2 ABG pO2 ABG HCO3 ABG O2 Saturation ABG Base Excess Oxygen Liter Flow FiO2 Sodium 138 Potassium 4.2 D Chloride 105 Carbon Dioxide 19.3 L Anion Gap 14 BUN 11 Creatinine 1.3 Estim Creat Clear Calc 49.7 L eGFR 56 L BUN/Creatinine Ratio 8 L Glucose 152 H Calculated Osmolality 278 Lactic Acid 5.2 H* Calcium 8.3 Corrected Calcium 8.6 Phosphorus Magnesium Total Bilirubin 1.1 AST 26 ALT 15 Alkaline Phosphatase 43 L Total Protein 6.0 Albumin 3.6 Globulin 2.4 Albumin/Globulin Ratio 1.5 Vitamin B12 94 L Procalcitonin 0.26 03/09/25 03/10/25 23:55 03:03 WBC 3.9 D RBC 2.31 L Hgb 7.4 L Hct 22.0 L MCV 95 MCH 32.0 MCHC 33.6 RDW Std Deviation 76.2 H Plt Count 135 L D Neut % (Auto) 83 H Lymph % (Auto) 7 L [place] % (Auto) 9 Eos % (Auto) 0 Baso % (Auto) 0 Neut # (Auto) 3.3 Lymph # (Auto) 0.3 L [place] # (Auto) 0.4 Eos # (Auto) 0.0 Baso # (Auto) 0.0 Immature Gran # (Auto) 0.01 H Absolute Nucleated RBC 0.00 Immature Gran % 0 Nucleated RBC % 0 PT INR APTT Puncture Site Right Radial ABG pH 7.45 ABG pCO2 27 L ABG pO2 122 H ABG HCO3 18 L ABG O2 Saturation 100 H ABG Base Excess -5 L Oxygen Liter Flow 15 FiO2 21 Sodium 138 Potassium 3.3 L D Chloride 105 Carbon Dioxide 23.6 Anion Gap 9 BUN 13 Creatinine 1.3 Estim Creat Clear Calc 49.7 L eGFR 56 L BUN/Creatinine Ratio 10 L Glucose 115 H Calculated Osmolality 276 Lactic Acid 1.6 Calcium 7.8 L Corrected Calcium 8.5 Phosphorus 2.3 L Magnesium 2.1 Total Bilirubin 1.3 H AST 22 ALT 12 Alkaline Phosphatase 35 L Total Protein 5.2 L Albumin 3.1 L D Globulin 2.1 L Albumin/Globulin Ratio 1.5 Vitamin B12 Procalcitonin ABG Interpretation ABG results: 03/05/25 03/09/25 13:17 23:55 ABG pH 7.45 ABG pCO2 27 L ABG pO2 122 H ABG HCO3 18 L ABG O2 Saturation 100 H ABG Base Excess -5 L VBG pH 7.39 VBG pCO2 36 VBG pO2 31 VBG Base Excess -3 Quality Measures Quality Measures none Advance care planning discussed with:: patient and spouse Assessment & Plan Assessment Current Active Medications: Generic Name Dose Route Start Last Admin Trade Name Freq PRN Reason Stop Dose Admin Acetaminophen 650 mg 03/05/25 15:28 03/10/25 08:54 Acetaminophen 325 Mg Tablet PO 04/04/25 15:27 650 mg Q6H PRN Administration Fever >101.5 or pain (1-3) Al Hydrox/Mg Hydrox/Simethicone 15 ml 03/06/25 18:00 03/10/25 05:18 Mg Hyd/Al Hyd/Mei (Maalox Reg) Susp 30 Ml Udc PO 04/05/25 17:59 15 ml Q4HR CLAUDE Administration Atorvastatin Calcium 40 mg 03/05/25 21:00 03/09/25 21:32 Atorvastatin Calcium 20 Mg Tablet PO 04/04/25 20:59 Not Given HS CLAUDE Digoxin 0.125 mg 03/09/25 09:00 03/09/25 10:55 Digoxin 0.125 Mg Tablet PO 04/08/25 08:59 0.125 mg [id number] CLAUDE Administration Vancomycin HCl 200 mls @ 120 mls/hr 03/11/25 10:00 Vancomycin/Water 1gm Ivpb IV 03/18/25 09:59 QDAY@1000 [facility] Protocol Ondansetron HCl 4 mg 03/05/25 13:06 Ondansetron Inj 2 Mg/Ml Inj 2 Ml IVP 04/04/25 13:05 Q4HR PRN NAUSEA OR VOMITING Pharmacy Consult 1 each 03/10/25 00:05 Vancomycin Pharmacy To Dose 1 Each Each IV 04/09/25 00:04 QDAY PRN PROTOCOL Rivaroxaban 10 mg/ Rivaroxaban 15 mg 03/10/25 09:00 03/10/25 08:54 5 mg PO 04/09/25 08:59 15 mg QDAY CLAUDE Administration Sucralfate 1 gm 03/06/25 17:00 03/10/25 08:53 Sucralfate Susp 1 Gm/10 Ml Udc PO 04/05/25 16:59 1 gm ACHS CLAUDE Administration Plan Mr. Riso is an 79-year-old male with a history of A-fib on Xarelto, hypertension, and polymyalgia rheumatica who presents to [facility] ED on 03/05 for generalized weakness and inability to walk. The patient was admitted for GI bleed. #Fevers #Acute encephalopathy, unknown etiology #History of TIA #Transient aphasia #? Cellulitis of left upper extremity Patient was initially brought to ED due to concerns of altered mental status and generalized fatigue that had sudden onset on 03/05 in the morning. This was initially assumed due to symptomatic anemia. However, the patient was noted to have episodes of acute altered mental status periodically throughout hospitalization. Rapid response was called on 03/08 for this acute altered mental status episode with slurred speech, which she was upgraded to code stroke. Neurology was consulted, and at the time CT head and CTA head and neck were negative for acute strokes. MRI was not recommended at that time due to concerns of an underlying metabolic encephalopathy. The patient then had a return to baseline mentation, until a second rapid response was called on 03/10 in the early childhood director for acute altered mental status change, slurred speech, and fever. The patient would gradually recover to baseline mentation afterwards. Patient had a fever on 03/08 initially, which has become more frequent over time. Tmax 102.4. Patient did have a sudden spike in WBC on second rapid response without leukocytosis, however this WBC quickly resolved back to baseline about 3 hours later. Patient was noted to have a large erythematous discoloration on the left arm that was first noted on 03/08, which was initially a very dark discoloration, swollen, very tender to touch, however over time the discoloration has spread to encompass his entire arm, but has become less dark and is no longer tender to touch on 03/10. Ddx: Cellulitis, meningitis, Coccidioides infection, stroke, delayed nonhemolytic transfusion reaction, febrile nonhemolytic transfusion reaction, hospital acquired pneumonia ? Head of bed at 30 degrees ? Ordered digoxin, TSH, free T4, vitamin B12, and folate levels for metabolic workup ? Ordered B12 1000 mcg injection 03/09 ? Ordered Dixon test to test for delayed hemolytic transfusion reaction, which was negative ? Chest x-ray 03/09 showed moderate vascular congestion, no lobar pneumonia ? Started patient on vancomycin and piperacillin/tazobactam (03/10--) ? Continue to follow blood and urine cultures, all collected cultures have been negative for this hospitalization thus far except for pending 03/09 blood cultures ? Ordered Coccidioides IgM with reflex IgG ? Started patient on LR maintenance fluids due to possible dehydration from GoLytely prep potentially contributing to febrile encephalopathy and lactic acidosis ? Neurology consulted, pending recommendations ? CT head without contrast negative for acute stroke, CTA head and neck negative for acute stroke #Upper and lower GI bleed 2/2 #Angiodysplasias of GI tract #Symptomatic anemia (resolved) Patient was brought to ED due to generalized fatigue and difficulty waking on the morning of 03/05. When patient was brought to the ED, his RBC was 1.58, hemoglobin 5.7, and hematocrit was 17.2. The patient endorsed black tarry stools that started about 2 to 3 weeks ago, but has only had this acute weakness on 03/05. ? Consulted GI ? Initial EGD showed angiodysplastic bleeding in gastric body and gastric fundus, requiring cautery and clipping. ? Repeat EGD 03/07, which showed no additional bleeding ? Colonoscopy planned for 03/08, delayed to 03/09, which showed moderate diverticulosis in sigmoid and descending colon, and multiple bleeding colonic angiodysplastic lesions that were treated with argon plasma coagulation ? 2 units of blood ordered 03/05, repeat H&H ordered after transfusion; addition 2 units of blood ordered 03/07 with repeat H&H. ? Investigating causes of angiodysplasias ? Patient denies history of abnormal bleeding in family history, so hereditary hemorrhagic telangiectasias less likely ? Echocardiogram pending to identify possible cardiac vulvular stenosis ? Patient to follow-up with Dr. Bauer, GI, and referral to perform capsule endoscopy #A-fib, on Xarelto and digoxin, rate controlled Patient has a history of atrial fibrillation and sees flight engineer performance qualified Dr. Colon for management. Patient is currently on Xarelto and digoxin. Asked pharmacy about digoxin dosing and they confirmed 0.125 mg daily while patient's family states that the patient takes 0.125 mg Friday and Friday. Contacted Dr. Colon for confirmation, and he stated that the patient was okay taking 0.125 mg Friday. CHADS-VASC score 4 (stroke risk 4.8% per year) HAS-BLED score 3 (bleed risk 5.8%, patient is at high risk for major bleeding) ? Restarted home Digoxin 0.125 mg Friday schedule ? Gave patient one-time dose digoxin 0.125 mg on 03/08 ? Restarted home Xarelto 15 mg daily # VANNA on CKD likely prerenal (resolved) In the ED, the patient had a BUN of 85, creatinine of 2.1, and GFR of 31. Patient does not have any known history of CKD. This is likely due to acute loss of blood due to GI bleed, resulting in decreased blood flow to the kidneys, which led to VANNA. This is expected to resolve with resuscitation by blood products. -Per chart reviewing pt have history of CKD with Cr around 1.4-1.7 ? Renally dose medications ? Avoid nephrotoxic medications ? Will hold off on IV fluid hydration given significantly decreased H&H on admission #?CHF Patient does not have a documented history of CHF, but patient takes furosemide 20 mg p.o. daily at home. Echocardiogram done on 04/30/2018 showed EF of 50% with moderate mitral regurgitation. ? Will hold patient's home furosemide given current GI bleed ? Strict ins and outs ? Daily weights ordered #Primary Hypertension Patient has a history of hypertension. Patient takes benazepril 40 mg daily and clonidine 0.2 mg 3 times daily at home. ? Will hold patient's home antihypertensives given current GI bleed ? Will monitor blood pressure closely ? Will hold home benazepril, clonidine, furosemide DVT Prophylaxis: Xarelto GI Prophylaxis: Protonix drip Bowel: N/A Diet: Cardiac diet Justin: N/A Lines: Peripheral IV Antibiotics: Vancomycin and Zosyn (03/10--) Code Status: FULL Reason for Hospitalization: GI bleed Other Barriers to Discharge: Fevers Patient plan of care was discussed with the senior resident Dr. Kelly (PGY-2) and attending physician Dr. Ross. Jhon Levine, PGY1
[2025-03-10] MEDS: RINGERS LACTATED 1000 ML 1,000 ML 125 ML IV ×2 (11:56→20:17)
[2025-03-10] MEDS: PIPER/TAZO 3.375 GM PREMIX 3.375 G/50 ML BAG IV ×3 (11:57→21:06)
--- NOTE | 2025-03-10 14:38 | PD.RESCONSUL ---
HPI Data of Consult Requesting Physician: Nathan Ross MD Admitting Provider: Nathan Ross MD Attending Provider: Nathan Ross MD Primary Care Provider: Carrie Barakat MD Consult Narrative History of present illness: CC: generalized weakness & slurred speech Patient is an 79-year-old male with a past medical history of hypertension, hyperlipidemia, previous TIA (2018), atrial fibrillation home medication of Xarelto, history of polymyalgia rheumatica, and history of alcohol use disorder previous MRI in 2018 noted significant atrophy in the posterior fossa, BPH, and active smoker. Patient initially brought in with a chief complaint of generalized weakness and unable to ambulat via EMS. Patient was admitted on 03/05/2025 acute symptomatic blood loss anemia likely secondary to upper GI bleed requiring 4 PRBCs units of transfusion. Had several weeks of melena. Per at bedside, appeared altered on Friday morning after patient was found confused, with slurred speech, and blank stare. Patient also had urinary incontinence and went to bed twice. Patient had generalized weakness and needed help ambulating. Unclear last well-known time. Family denied seizure-like active or tongue biting. Patient continues to consume alcohol daily, 1/2 bottle of wine per night. Previous to altered mental status, patient will continue to work and was actively involved in all finances. Ambulate without a walker. Per , patient has not had no change in medications. Denied chest pain. Positive for shortness of breath upon arrival. Last week experiencing retina tear, still uanble to see from right eye. ED course: Patient brought to ED with initially stable vitals. Blood pressure was soft at 95/63. Patient did have brief period of tachycardia ranging from 110-118. Due to critical concern for altered mental status and patient's history of atrial fibrillation, code stroke was activated and neurology was consulted. CT head was negative for acute findings. Teleneurology consult recommended metabolic workup due to clinical presentation consistent with metabolic encephalopathy. Labs resulted with RBC 1.58, hemoglobin 5.7, hematocrit 17.2 PT 14.6, INR 1.4, BUN 85, creatinine 2.1, GFR 31, and troponin less than 0.020. 2 units of blood ordered for transfusion. PSH: Occupation: [employer] Alcohol Intake: 3-4 glasses of wine per day for many years Tobacco/Vape Use: Tobacco pipe one time use every night for many years Other Drug Use:denied meth or cocaine use Neurology Consulted given concern for altered mental status. cc:: cc: Nathan Ross MD Review of Systems Review of Systems Narrative Review of Systems: General appearance: NO weight change, Yes fatigue, NO weakness, NO fever, NO chills, NO night sweats, No cough Skin: NO rash, NO itching, NO sores, NO moles HEENT: NO Trauma, NO nausea, NO vomiting, NO visual changes, NO blurry vision, NO double vision, NO tinnitus, NO vertigo, NO ear discharge, NO rhinorrhea, NO stuffiness, NO sneezing, NO allergy, NO epistaxis. NO Hoarseness, NO sore throat, NO swollen neck. Cardiac: NO Palpitations, NO dyspnea on exertion, NO orthopnea, NO paroxysmal nocturnal dyspnea, NO edema Respiratory: YES Shortness of Breath, NO Wheezing, NO Cough, NO Sputum, NO hemoptysis GI:NO appetite, NO nausea, NO vomiting, NO dysphagia, NO changes in bowel frequency, NO stool color, NO diarrhea, NO constipation, NO hemetemesis, NO hemorrhoids, YES melena, NO hematechezia, NO abdominal pain, NO jaundice Renal: NO frequency, NO hesitancy, NO urgency, NO hematuria, NO nocturia, NO incontinence MSK: NO muscle weakness, NO gout, NO arthritis, NO muscle stiffness Neuro: Yes confused, slurred speech, NO headaches, NO tremors, NO weakness, NO paralysis, NO seizures, NO loss of consciousness, NO numbness. Hem: NO anemia, NO easy bruising/bleeding, NO petechiae, NO purpura Endo: NO heat/cold intolerance, NO excessive sweating, NO polyuria, NO polydipsia, NO polyphagia, NO thyroid problems, NO diabetes Pysch: NO mood, NO anxiety, NO depression Exam Vital Signs Temp Pulse Resp BP Pulse Ox O2 Del Method O2 Flow Rate 101.6 F H 115 H 24 H 140/101 H 98 Oxy Mask 3 03/10/25 09:54 03/10/25 08:00 03/10/25 08:00 03/10/25 08:00 03/10/25 08:00 03/10/25 08:00 03/10/25 08:00 Narrative Exam General Appearance: Alert & Oriented x2, well-nourished male who is lying in bed in no acute distress HEENT: Skull symmetrical and atraumatic. Conjunctivae pin and moist. Pupils equal, round, reactive to light and accommodation (PERRL). External ear without lesion or discharge. Tympanic membrane pearly white, not bulging or discharge. Straight, nares patient, mucosa pink, no discharge. No thyroid nodule appreciated. No cervical lymphadenopathy. Cardio: Normal Rate and Rhythm with S1 and S2 heart sounds. No murmurs or extra heart sounds auscultated. No bruits on carotid auscultation. No peripheral edema or cyanosis. Lungs: Symmetric with good expansion. Chest and back non-tender. Reduced vesicular breath sounds bilaterally, with rhonchi. Abdomen: Left lower quadrant tenderness 7/10 pain with deep palpation, no peritoneal signs noted, Non-distended, Normal Reactive Bowel Sounds Neuro: YES Alert, Yes cooperative, Yes oriented to person, Yes place, and No time. aphasic speech. CN grossly intact. Upper motor strength 5/5 and Lower motor strength 5/5. Sensation intact. No facial droop. Reflexes present and equal. Left eye, gaze deviation-difficult with tracking Results Labs 03/10/25 03:03 03/10/25 03:03 Labs: Short CBC 03/09/25 03/10/25 Range/Units 23:54 03:03 WBC 8.4 D 3.9 D (3.8-10.6) Thou/mm3 Hgb 8.3 L 7.4 L (13.5-16.0) g/dL Hct 24.8 L 22.0 L (41.0-53.0) % Plt Count 202 D 135 L D (140-440) Thou/mm3 [facility] 03/09/25 03/10/25 23:46 03:03 Sodium 138 138 Potassium 4.2 D 3.3 L D Chloride 105 105 Carbon Dioxide 19.3 L 23.6 BUN 11 13 Creatinine 1.3 1.3 Glucose 152 H 115 H Calcium 8.3 7.8 L Liver Function 03/09/25 03/10/25 Range/Units 23:46 03:03 Total Bilirubin 1.1 1.3 H (0.3-1.2) mg/dL AST 26 22 (0-34) U/L ALT 15 12 (10-49) U/L Alkaline Phosphatase 43 L 35 L (46-116) U/L Albumin 3.6 3.1 L D (3.4-4.8) gm/dL ABG Interpretation ABG results: 03/05/25 03/09/25 13:17 23:55 ABG pH 7.45 ABG pCO2 27 L ABG pO2 122 H ABG HCO3 18 L ABG O2 Saturation 100 H ABG Base Excess -5 L VBG pH 7.39 VBG pCO2 36 VBG pO2 31 VBG Base Excess -3 Quality Measures Quality Measures none Advance care planning discussed with:: patient Medications Home Medications and Allergies Home Medications ?Medication ?Instructions ?Recorded ?Confirmed ?Type benazepril 40 mg tablet 40 mg PO QDAY 04/30/18 03/05/25 History clonidine HCl 0.2 mg tablet 0.2 mg PO TID 04/30/18 03/05/25 History rivaroxaban 15 mg tablet (Xarelto) 15 mg PO QDAY 04/30/18 03/05/25 History digoxin 125 mcg (0.125 mg) tablet 0.125 mg PO QDAY 03/05/25 03/05/25 History furosemide 20 mg tablet 20 mg PO QDAY 03/05/25 03/05/25 History Allergies Allergy/AdvReac Type Severity Reaction Status Date / Time No Known Allergies Allergy Verified 02/04/25 10:02 Visit Medications Acetaminophen (Acetaminophen 325 Mg Tablet) 650 mg PO Q6H PRN PRN Reason: Fever >101.5 or pain (1-3) Stop: 04/04/25 15:27 Last Admin: 03/10/25 08:54 Dose: 650 mg Al Hydrox/Mg Hydrox/Simethicone (Mg Hyd/Al Hyd/Mei (Maalox Reg) Susp 30 Ml Udc) 15 ml PO Q4HR CLAUDE Stop: 04/05/25 17:59 Last Admin: 03/10/25 14:08 Dose: 15 ml Atorvastatin Calcium (Atorvastatin Calcium 20 Mg Tablet) 40 mg PO HS CLAUDE Stop: 04/04/25 20:59 Last Admin: 03/09/25 21:32 Dose: Not Given Digoxin (Digoxin 0.125 Mg Tablet) 0.125 mg PO MoWeFr@0900 CLAUDE Stop: 04/08/25 08:59 Last Admin: 03/09/25 10:55 Dose: 0.125 mg Vancomycin HCl (Vancomycin/Water 1gm Ivpb) 200 mls @ 120 mls/hr IV QDAY@1000 CLAUDE; Protocol Stop: 03/18/25 09:59 Lactated Ringer's (Lactated Ringers) 1,000 mls @ 125 mls/hr IV .Q8H [facility] Stop: 04/09/25 10:30 Last Admin: 03/10/25 11:56 Dose: 125 mls/hr Piperacillin/Tazobactam/Dextrose (Zosyn) 3.375 g in 50 mls @ 12.5 mls/hr IV Q8HR [facility] Stop: 03/17/25 10:32 Last Admin: 03/10/25 14:09 Dose: 12.5 mls/hr Ondansetron HCl (Ondansetron Inj 2 Mg/Ml Inj 2 Ml) 4 mg IVP Q4HR PRN PRN Reason: NAUSEA OR VOMITING Stop: 04/04/25 13:05 Pharmacy Consult (Vancomycin Pharmacy To Dose 1 Each Each) 1 each IV QDAY PRN PRN Reason: PROTOCOL Stop: 04/09/25 00:04 Rivaroxaban 10 mg/ Rivaroxaban (5 mg) 15 mg PO QDAY [facility] Stop: 04/09/25 08:59 Last Admin: 03/10/25 08:54 Dose: 15 mg Sucralfate (Sucralfate Susp 1 Gm/10 Ml Udc) 1 gm PO ACHS [facility] Stop: 04/05/25 16:59 Last Admin: 03/10/25 11:58 Dose: 1 gm Discontinued Medications Benzocaine (Benzocaine 20% (Hurricaine) Cut Off 1 Dose) 0 dose TOP X1 ONE Stop: 03/06/25 15:46 Benzocaine (Benzocaine 20% (Hurricaine) Cut Off 1 Dose) 0 dose TOP X1 ONE Stop: 03/07/25 22:36 Bisacodyl (Bisacodyl 10 Mg Supp) 10 mg TN X1 PRN PRN Reason: Gas pain Stop: 03/09/25 21:46 Cyanocobalamin (Cyanocobalamin Inj 1,000 Mcg/Ml Vial) 1,000 mcg IM X1 ONE Stop: 03/09/25 16:39 Last Admin: 03/09/25 17:13 Dose: 1,000 mcg Digoxin (Digoxin 0.125 Mg Tablet) 0.125 mg PO QDAY [facility] Stop: 04/04/25 15:44 Last Admin: 03/05/25 16:26 Dose: Not Given Digoxin (Digoxin 0.125 Mg Tablet) 0.125 mg PO X1 ONE Stop: 03/08/25 07:59 Last Admin: 03/08/25 09:32 Dose: 0.125 mg Diphenhydramine HCl (Diphenhydramine Inj 50 Mg/Ml Vial) 25 mg IVP PRNMRX1 PRN PRN Reason: MODERATE SEDATION Stop: 03/06/25 17:45 Diphenhydramine HCl (Diphenhydramine Inj 50 Mg/Ml Vial) 25 mg IVP [id number] PRN PRN Reason: MODERATE SEDATION Fentanyl Citrate (Fentanyl Cit Inj 50 Mcg/Ml Amp 2ml) 50 mcg IVP Q2M PRN PRN Reason: MODERATE SEDATION Stop: 03/06/25 17:45 Fentanyl Citrate (Fentanyl Cit Inj 50 Mcg/Ml Amp 2ml) 50 mcg IVP Q2M PRN PRN Reason: MODERATE SEDATION Fentanyl Citrate (Fentanyl Cit Inj 50 Mcg/Ml Amp 2ml) 50 mcg IVP Q2M PRN PRN Reason: MODERATE SEDATION Stop: 03/09/25 21:45 Sodium Chloride (Ns) 1,000 mls @ 100 mls/hr IV Q10H [facility] Stop: 04/04/25 13:14 Last Infusion: 03/07/25 23:46 Dose: 100 mls/hr Pantoprazole Sodium (Protonix/Ns 80mg Iv Premix) 80 mg in 100 mls @ 10 mls/hr IV Q10H [facility] Stop: 03/08/25 13:35 Last Admin: 03/08/25 16:29 Dose: 10 mls/hr Magnesium Sulfate (Magnesium Sulfate Ivpb) 4 gm in 50 mls @ 12.5 mls/hr IV X1 ONE Stop: 03/08/25 00:59 Last Infusion: 03/07/25 23:46 Dose: 12.5 mls/hr Sodium Chloride (Ns) 500 mls @ 20 mls/hr IV .Q24H ONE Stop: 03/08/25 22:31 Sodium Chloride (Ns) 500 mls @ 20 mls/hr IV .Q24H ONE Stop: 03/08/25 22:31 Last Infusion: 03/08/25 00:00 Dose: 0 mls/hr Magnesium Sulfate (Magnesium Sulfate Ivpb) 4 gm in 50 mls @ 12.5 mls/hr IV X1 ONE Stop: 03/09/25 11:43 Last Admin: 03/09/25 07:51 Dose: 12.5 mls/hr Acetaminophen (Ofirmev Inj) 1,000 mg in 100 mls @ 250 mls/hr IV X1 ONE Stop: 03/09/25 23:48 Last Admin: 03/10/25 00:19 Dose: 250 mls/hr Lactated Ringer's (Lactated Ringers) 2,526 mls @ 2,526 mls/hr 30 ml/kg infuse over 60 min (2526 ml) IV .Q1H ONE Stop: 03/10/25 00:25 Last Admin: 03/10/25 00:17 Dose: 2,526 mls/hr Piperacillin/Tazobactam/Dextrose (Zosyn) 3.375 gm in 50 mls @ 100 mls/hr IV X1 ONE Stop: 03/10/25 00:30 Last Admin: 03/10/25 00:44 Dose: 100 mls/hr Vancomycin/Sodium Chloride (Vancomycin/Ns 1 Gm Ivpb) 200 mls @ 120 mls/hr IV X1 ONE Stop: 03/10/25 02:24 Vancomycin HCl 1,000 mg/ (Sodium Chloride) 250 mls @ 150 mls/hr IV X1 ONE Stop: 03/10/25 03:09 Last Admin: 03/10/25 01:17 Dose: 150 mls/hr Vancomycin/Sodium Chloride (Vancomycin/Ns 750 Mg Ivpb) 750 mg in 150 mls @ 120 mls/hr IV X1 ONE Stop: 03/10/25 09:14 Last Admin: 03/10/25 08:53 Dose: 120 mls/hr Acetaminophen (Ofirmev Inj) 1,000 mg in 100 mls @ 250 mls/hr IV X1 ONE Stop: 03/10/25 12:21 Last Admin: 03/10/25 12:11 Dose: 250 mls/hr Metoprolol Tartrate (Metoprolol Tartrate Inj 1 Mg/Ml Amp 5 Ml) 2.5 mg IVP X1 ONE Stop: 03/10/25 04:46 Last Admin: 03/10/25 05:18 Dose: 2.5 mg Midazolam HCl (Midazolam Inj 1 Mg/Ml Vial 2 Ml) 2 mg IVP Q2M PRN PRN Reason: Moderate Sedation Stop: 03/06/25 17:45 Midazolam HCl (Midazolam Inj 1 Mg/Ml Vial 2 Ml) 2 mg IVP Q2M PRN PRN Reason: Moderate Sedation Midazolam HCl (Midazolam Inj 1 Mg/Ml Vial 2 Ml) 2 mg IVP Q2M PRN PRN Reason: Moderate Sedation Stop: 03/09/25 21:45 Non-Formulary Medication (Rivaroxaban [Xarelto]) 15 mg PO QDAY [facility] Stop: 04/09/25 08:59 Pantoprazole Sodium (Pantoprazole Inj 40 Mg Vial) 40 mg IVP X1 ONE Stop: 03/05/25 14:37 Last Admin: 03/05/25 15:14 Dose: 40 mg Pharmacy Consult (Vancomycin Pharmacy To Dose 1 Each Each) 1 each IV QDAY [facility] Stop: 04/09/25 08:59 Phytonadione (Phytonadione Inj 10 Mg/Ml Amp) 10 mg SC X1 ONE Stop: 03/05/25 14:29 Last Admin: 03/05/25 15:41 Dose: Not Given Polyethylene Glycol/Electrolytes (Na Pedersen/Nahco3/Farhat/Peg (Golytely) 4,000 Ml Btl) 4,000 ml PO X1 ONE Stop: 03/07/25 22:55 Last Admin: 03/07/25 23:47 Dose: 4,000 ml Polyethylene Glycol/Electrolytes (Na Pedersen/Nahco3/Farhat/Peg (Golytely) 4,000 Ml Btl) 4,000 ml PO X1 ONE Stop: 03/08/25 18:46 Last Admin: 03/08/25 20:15 Dose: 4,000 ml Potassium Chloride (Potassium Chloride 20 Meq Tabcr) 20 meq PO X1 ONE Stop: 03/09/25 08:11 Last Admin: 03/09/25 09:03 Dose: 20 meq Potassium Chloride (Potassium Chloride 20 Meq Tabcr) 40 meq PO X1 ONE Stop: 03/10/25 04:09 Last Admin: 03/10/25 05:19 Dose: 40 meq Potassium Chloride (Potassium Chloride 20 Meq Tabcr) 40 meq PO X1 ONE Stop: 03/10/25 07:52 Last Admin: 03/10/25 08:53 Dose: 40 meq Potassium Phos/Sodium Phos (Naph,[facility] Mbdb 1 Packet (1.5 Gm)) 1 packet PO X1 ONE Stop: 03/10/25 07:32 Last Admin: 03/10/25 08:53 Dose: 1 packet Assessment & Plan Plan Patient is an 79-year-old male with a past medical history of hypertension, hyperlipidemia, previous TIA (2018), atrial fibrillation home medication of Xarelto, history of polymyalgia rheumatica, and history of alcohol use disorder previous MRI in 2018 noted significant atrophy in the posterior fossa, BPH, and active smoker. Corey was admitted on 03/05/2025 for acute blood loss anemia, symptomatic, likely secondary to upper GI bleed s/p EGD and colonoscopy. #Acute Encephloapthy, unknown etiology. #History of TIA #History of Ischemic stroke, right basal ganglia #Aphasia #Generalized Weakness Patient presented to the emergency room with chief complain of altered mental status, slurred speech, blank stare, and generalized weakness. Patient has not returned to baseline since then. Patient continues to have difficulty word finding. Per at bedside, denied new medication, denied seizure like activity, denied head trauma. Stroke can not be ruled given previous TIA vs infectious cause as lactic acid continues to rise but edema from other sources no not be ruled out at this time vs transfusion reaction but no hematuria noted vs B12 deficiency/Wernicke's given continued use of alcohol use disorder, low B12, and atrophy of brain noted on previous MRI (2018). Diagnostics: CT head (03/08/2025): Negative for acute hemorrhage. Old infarct in the right basal ganglia CTA Head/Neck: negative Blood cultures Negative, penidng two additional sets of blood cultures B12: 94 (L0 TSH 1.51 (03/06/2025) Lipid Panel (03/06/2025): Triglycerides 165, Cholesterol 58, lDL 11, HDL 14 ASCVD: not applicable given age Plan -EEG ordered -No MRI as he gets claustrophobic and needs excess sedation as per his . -check vitamin B1 & US Abdomen -Atorvastatin 40 mg PO HS, holding off Aspirin given recent acute blood loss anemia. -Head of the bed at 30 degrees -Replace electrolytes as needed -Continue to monitor for signs of infection -Continue to follow blood cultures #Sepsis, suspected #SIRs #Acute blood loss anemia, likely secondary to upper GI bleed #Angidysplasias SOFA 4 points #Atrial Fibrillation, rate controlled on Digoxin #VANNA on CKD #HLD #HTN #Pulmonary Vascular Congestion #Mild Concentric LV Hypertrophy #Smoker #Alcohol Use Disorder - The patient's plan was discussed with attending Dr. Guillermo Bryan MD PGY2 Internal Medicine Attending Provider Attestation/Addendum I personally have seen and examined the patient at the bedside and I agreed with Resident' findings, assessment and plan of care. His presenting symptom of altered mental status, fever, slurred speech and generalized weakness with hx of chronic alcohol use, suspect wernicke's encephalopathy/Nonconvulsive sz/TIA/encephalitis. Very very low B12 level of 94: is likely associated with alcoholism, noted replacement. Continue with Thiamine and Folate and DT prophylaxis. However, as his mental status is improving, close to baseline, temp is coming down, no more spikes, Will hold off on LP as he got restarted on Xarelto unless he spikes the fever with recurrent episodes of altered mentation. FU with EEG.
--- NOTE | 2025-03-10 14:57 | XR_ITS ---
Examination: Abdomen sonogram, complete Date and time of exam: March 10, 2025 1511 hours INDICATIONS: Left lower abdominal pain and tenderness today. Technique: Multiple real-time grayscale transabdominal sonographic images of the abdomen have been obtained. Findings: Negative for gallstones Gallbladder wall 0.4 cm no edema Common bile duct 0.4 cm Pancreas obscured by bowel gas Ovaries obscured by bowel gas Liver 13.8 cm no liver lesions noted Normal hepatopedal portal venous flow Patent IVC Right kidney 6.5 cm cortex 0.9 cm 8 cm midpole cyst Left kidney 10.7 cm renal cortex 1.4 cm 5.2 cm midpole cyst Moderate renal parenchymal scar formation Spleen 12.6 cm IMPRESSION: Negative for cholelithiasis, negative for cholecystitis Small right kidney Bilateral renal cysts No hydronephrosis Moderate bilateral renal scar formation
[2025-03-10] MEDS: ATORVASTATIN CALCIUM 20 MG TABLET 40 MG PO (20:15)
--- NOTE | 2025-03-10 21:32 | PD.IMPROG ---
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 post argon APC laser with complete hemostasis Patient most likely has additional small bowel angiodysplastic lesion which will be taken care of as an outpatient with a capsule endoscopy first Patient can be anticoagulated Exam Vital Signs Temp Pulse Resp BP Pulse Ox O2 Del Method O2 Flow Rate 97.8 F 127 H 31 H 123/85 H 95 Nasal Cannula 3 03/10/25 20:35 03/10/25 20:00 03/10/25 20:00 03/10/25 20:00 03/10/25 20:00 03/10/25 20:00 03/10/25 20:00 Objective Labs 03/10/25 03:03 03/10/25 03:03 Labs: Laboratory Results - last 24 hr 03/09/25 03/09/25 03/09/25 23:46 23:54 23:55 WBC 8.4 D RBC 2.60 L Hgb 8.3 L Hct 24.8 L MCV 95 MCH 31.9 MCHC 33.5 RDW Std Deviation 79.4 H Plt Count 202 D Neut % (Auto) 79 Lymph % (Auto) 13 [place] % (Auto) 8 Eos % (Auto) 0 Baso % (Auto) 1 Neut # (Auto) 6.6 Lymph # (Auto) 1.1 [place] # (Auto) 0.6 Eos # (Auto) 0.0 Baso # (Auto) 0.1 Immature Gran # (Auto) 0.05 H Absolute Nucleated RBC 0.00 Immature Gran % 1 H Nucleated RBC % 0 PT 11.6 D INR 1.1 APTT 22.1 Puncture Site Right Radial ABG pH 7.45 ABG pCO2 27 L ABG pO2 122 H ABG HCO3 18 L ABG O2 Saturation 100 H ABG Base Excess -5 L Oxygen Liter Flow 15 FiO2 21 Sodium 138 Potassium 4.2 D Chloride 105 Carbon Dioxide 19.3 L Anion Gap 14 BUN 11 Creatinine 1.3 Estim Creat Clear Calc 49.7 L eGFR 56 L BUN/Creatinine Ratio 8 L Glucose 152 H Calculated Osmolality 278 Lactic Acid 5.2 H* Calcium 8.3 Corrected Calcium 8.6 Phosphorus Magnesium Total Bilirubin 1.1 AST 26 ALT 15 Alkaline Phosphatase 43 L Total Protein 6.0 Albumin 3.6 Globulin 2.4 Albumin/Globulin Ratio 1.5 Procalcitonin 0.26 03/10/25 03:03 WBC 3.9 D RBC 2.31 L Hgb 7.4 L Hct 22.0 L MCV 95 MCH 32.0 MCHC 33.6 RDW Std Deviation 76.2 H Plt Count 135 L D Neut % (Auto) 83 H Lymph % (Auto) 7 L [place] % (Auto) 9 Eos % (Auto) 0 Baso % (Auto) 0 Neut # (Auto) 3.3 Lymph # (Auto) 0.3 L [place] # (Auto) 0.4 Eos # (Auto) 0.0 Baso # (Auto) 0.0 Immature Gran # (Auto) 0.01 H Absolute Nucleated RBC 0.00 Immature Gran % 0 Nucleated RBC % 0 PT INR APTT Puncture Site ABG pH ABG pCO2 ABG pO2 ABG HCO3 ABG O2 Saturation ABG Base Excess Oxygen Liter Flow FiO2 Sodium 138 Potassium 3.3 L D Chloride 105 Carbon Dioxide 23.6 Anion Gap 9 BUN 13 Creatinine 1.3 Estim Creat Clear Calc 49.7 L eGFR 56 L BUN/Creatinine Ratio 10 L Glucose 115 H Calculated Osmolality 276 Lactic Acid 1.6 Calcium 7.8 L Corrected Calcium 8.5 Phosphorus 2.3 L Magnesium 2.1 Total Bilirubin 1.3 H AST 22 ALT 12 Alkaline Phosphatase 35 L Total Protein 5.2 L Albumin 3.1 L D Globulin 2.1 L Albumin/Globulin Ratio 1.5 Procalcitonin Impressions Impression: Anemia blood loss Angiodysplastic lesions right colon status post APC laser Plan Advance diet Capsule endoscopy as an outpatient Patient can be anticoagulated ABG Interpretation ABG results: 03/05/25 03/09/25 13:17 23:55 ABG pH 7.45 ABG pCO2 27 L ABG pO2 122 H ABG HCO3 18 L ABG O2 Saturation 100 H ABG Base Excess -5 L VBG pH 7.39 VBG pCO2 36 VBG pO2 31 VBG Base Excess -3 Assessment & Plan A&P Narrative # Acute posthemorrhagic anemia # melena Plan IV Protonix N.p.o. midnight tonight Agree with a blood transfusion Consent obtained for fiberoptic esophagogastroduodenoscopy with possible therapeutic intervention under intravenous moderate sedation tentatively scheduled for tomorrow Serial CBC Other medical problems include Polymyalgia rheumatica continue prednisone Atrial fibrillation on Xarelto. Xarelto on hold till the upper endoscopy Thank you very much for the opportunity to participate in the care of this patient Time Spent With Patient Time: Total time spent is greater than 50% in coordination of care (as documented) at patient's floor/unit and/or counseling patient:
[2025-03-11] VITALS (17 sets, daily range): BP systolic 121–142; BP diastolic 81–100; PULSE 71–135; RESP 18–30; TEMP 36.3–38.6; O2SAT 93–99; BMI 24.8
--- NOTE | 2025-03-11 | XR_ITS ---
Examination: MRI brain without intravenous contrast. Date and time of exam: March 11, 2025 1839 hours, comparison April 30, 2018 INDICATIONS: Stroke alert March 05, 2025, onset focal neurologic deficit difficulty speaking Technique: Multiple axial and sagittal images of the brain obtained. Siemens high-resolution 1.5 Zahira short bore scanners utilized. Sagittal sections, T1-weighted, TR 500, TE 14, are performed. Axial sections proton-density and T2-weighted have been obtained. Inversion recovery axial images, TR 9, 260, TE 111, TI 2500. Diffusion weighted images, axial sections, TR 4800, TE 128, B value 1000 Axial sections, ADC map, TR 4800, TE 128 Findings: Enlargement of the sella turcica is not present. The optic chiasm and infundibular are not remarkable. Prepontine and interpeduncular cisterns are not enlarged. There is no localized enlargement of the medulla or matthias. Fourth ventricle and cerebellar tonsils appear normal in position. No subacute area of hemorrhage density is seen. Mass in the cerebellopontine angle region is not evident. Globes symmetrical. Orbital musculature including medial lateral rectus muscles do not exhibit abnormality. Diffusion-weighted images demonstrate multiple tiny embolic type foci of restricted diffusion with week matching ADC signal deficits in the frontal parietal lobes basal ganglia and posterior left temporal lobe Increased white matter signal moderate Mass effect upon the ventricular system is not identified. Impression: Multiple embolic-type acute infarcts as above
[2025-03-11] MEDS: MG HYD/AL HYD/SIME (Maalox Reg) SUSP 30 ML UDC 15 ML PO ×5 (01:33→21:02)
[2025-03-11] MEDS: ACETAMINOPHEN 325 MG TABLET 650 MG PO (01:34)
[2025-03-11] MEDS: RINGERS LACTATED 1000 ML 1,000 ML 125 ML IV (04:11)
[2025-03-11] MEDS: PIPER/TAZO 3.375 GM PREMIX 3.375 G/50 ML BAG IV ×3 (05:19→21:03)
[2025-03-11 05:53] LABS: Basophils # (Auto) 0.0 Thou/mm3 (0.0-0.2); Basophils % (Auto) 1 % (0-2.5); Eosinophils # (Auto) 0.0 Thou/mm3 (0.0-0.5); Eosinophils % (Auto) 0 % (0-10); Hematocrit 23.0 % (41.0-53.0); Hemoglobin 7.5 g/dL (13.5-16.0); Immature Granulocytes Auto 0.03 Thou/mm3 (0.00-0.00); Lymphocytes # (Auto) 0.3 Thou/mm3 (1.0-4.8); Lymphocytes % (Auto) 5 % (10-50); Mean Corpuscular HGB Conc 32.6 g/dl (31.0-37.0); Mean Corpuscular Hemoglobin 31.3 pg (25.0-35.0); Mean Corpuscular Volume 96 fL (80-100); Monocytes # (Auto) 0.3 Thou/mm3 (0.0-0.8); Monocytes % (Auto) 4 % (0-12); Neutrophils # (Auto) 5.9 Thou/mm3 (1.8-7.7); Neutrophils % (Auto) 90 % (37-80); Nucleated Red Blood Cell # 0.00 Thou/mm3 (0.00-0.00); Nucleated Red Blood Cell % 0 /100 WBC (0); Platelet Count 114 Thou/mm3 (140-440); RDW Standard Deviation 75.9 fL (35.1-43.9); Red Blood Count 2.40 Miln/mm3 (4.50-5.90); White Blood Count 6.5 Thou/mm3 (3.8-10.6)
[2025-03-11 06:02] LABS: Alanine Aminotransferase < 7 U/L (10-49); Albumin, Serum 2.9 gm/dL (3.4-4.8); Albumin/Globulin Ratio 1.3 (1.2-2.2); Alkaline Phosphatase 30 U/L (46-116); Anion Gap 9 (7-16); Aspartate Amino Transferase 41 U/L (0-34); BUN/Creatinine Ratio 12 Ratio (12-20); Bilirubin,Total 1.1 mg/dL (0.3-1.2); Blood Urea Nitrogen 17 mg/dL (9-23); Calcium 8.1 mg/dL (8.3-10.6); Calcium (Corrected) 9.0 mg/dL (8.5-10.1); Carbon Dioxide 24.2 mMol/L (20.0-31.0); Chloride 106 mMol/L (98-107); Creatinine (Component) 1.4 mg/dL (0.6-1.3); Estimated Creatinine Clearance 46.2 mL/min (>60); Globulin 2.3 gm/dL (2.3-3.5); Glucose 112 mg/dL (74-106); Magnesium 2.3 mg/dL (1.6-2.6); Osmolality,Calculated 280 (275-295); Phosphorous 4.1 mg/dL (2.4-5.1); Potassium 4.6 mMol/L (3.4-5.1); Sodium 139 mMol/L (136-145); Total Protein 5.2 gm/dL (5.7-8.2); eGFR 51 See Note
[2025-03-11 06:03] LABS: Ammonia < 10 uMol/L (11-32)
[2025-03-11] MEDS: RIVAROXABAN 10 MG, RIVAROXABAN 5 MG 15 MG PO (08:57)
[2025-03-11] MEDS: PANTOPRAZOLE 40 MG TABLET PO ×2 (08:57→21:03)
[2025-03-11] MEDS: DIGOXIN 0.125 MG TABLET PO (08:57)
[2025-03-11] MEDS: SUCRALFATE SUSP 1 GM/10 ML UDC PO ×4 (08:57→21:03)
[2025-03-11 10:58] LABS: Sed Rate (ESR) 16 mm/hr (0-20)
[2025-03-11] MEDS: AMIODARONE 150 MG IVPB 150 MG/100 ML BAG 600 MG IV (11:05)
--- NOTE | 2025-03-11 11:17 | ESPR_ITS ---
<Statement entered by Nathan Ross MD - 03/25/25 15:05> I reviewed above note and agree with findings and plans. I have also personally examined the patient with medicine team and went over assessment and plan with medical team including analysis intern and resident physician. <Statement entered by Jessica Kelly MD - 03/11/25 17:54> Patient was seen and examined at bedside. I agree on the assessment and plan on this note as documented by resident Jhon Levine PGY1. 79-year-old male past medical history of A-fib, hypertension, polymyalgia rheumatica, rheumatoid arthritis, CKD and ?Congestive heart failure, overnight patient had fever, improved with Tylenol patient continues to have fever despite being on IV antibiotics, neurology was consulted yesterday, deferred from LP for now, ordered EEG which is pending. Will order MRI today, follow-up with neurology regarding possible LP, will hold Xarelto. Reviewed patient's medication, no cause indicated above drug fever for now, consulted infectious disease for further recommendations, pending cocci, will follow cultures, suspected rheumatological causes will order ESR and CRP, low clinical suspicion of meningitis for now as patient's mentation is waxing and waning however we will still order HSV. For patient's A-fib with RVR, consulted cardiology started on amiodarone drip and Cardizem, digoxin discontinued. Patient is pending echocardiogram, we tried to reach out to utility locate technician multiple times however they are unavailable. Patient will need outpatient GI follow-up to perform capsule endoscopy, patient does have worsening VANNA today, does have CKD abdominal ultrasound does show CKD changes, will continue to monitor patient for now, will consider IVC assessment via ultrasound in a.m. if patient's renal functions worsens to check fluid status. Disposition telemetry pending workup for fevers and management of A-fib RVR. Case discussed with attending Dr. Cody Kelly MD PGY-2 Documentation for date of: 03/11/25 Subjective Subjective Interval history: Overnight events: No acute events overnight. Patient noted to be febrile, tachycardic, and tachypneic overnight. Patient was seen and examined at bedside. AM vitals and labs reviewed. Patient appeared to be much more awake and alert and oriented today, was joking with medical staff. Afebrile this a.m., but still tachycardic and tachypneic. Patient does appear to be coughing more than yesterday and has a soft right lung wheeze. Patient satting at 91% on 2 L O2 nasal cannula, but no shortness of breath. Abdomen appears more distended compared to yesterday. Left arm continues to be erythematous, but less swollen today and continues to be nontender to palpation. Neurology was consulted yesterday, recommends EEG. Abdominal ultrasound was performed yesterday due to abdominal pain, which was negative for acute processes. Blood cultures drawn during 1st and 2nd response showed no growth after 48 and 24 hours respectively. Ordered ESR, CRP, HSV for further workup. MRI head with and without contrast ordered. Consulted cardiology, Dr. Colon, about A-fib with RVR. He agrees with stopping digoxin and starting patient on amiodarone drip with plans to convert to amiodarone p.o. Dr. Colon also recommended Cardizem p.o. every 6 if needed, will reassess need after echocardiogram. Consulted ID, Dr Zapien, about fevers, pending recommendations. Review of systems otherwise negative except for what is mentioned above. Exam Vital Signs Temp Pulse Resp BP Pulse Ox O2 Del Method O2 Flow Rate 97.3 F 131 H 23 H 138/100 H 97 Nasal Cannula 2 03/11/25 08:00 03/11/25 11:05 03/11/25 08:00 03/11/25 11:05 03/11/25 08:00 03/11/25 08:00 03/11/25 08:00 Narrative Exam Physical Exam: General: Alert, no acute distress. Skin: Warm, intact, no obvious rash. Head: Normocephalic, atraumatic. Eye: Normal conjunctiva, PERRL. Throat: Oral mucosa dry. No obvious lesions in oropharynx. Cardiovascular: Regular rate and rhythm, soft systolic murmur best heard over tricuspid region, +S1/S2. Respiratory: Lungs are clear to auscultation, respirations unlabored, no crackles, no wheezing. Gastrointestinal: Soft, nontender, non-distended. No guarding or rebound tenderness. Extremities: No edema, no cyanosis, no clubbing. Left arm slightly swollen, erythematous, non-tender, and dark discoloring present, primarily over posterior aspect of upper arm. Neuro: No focal deficits observed. Conversant, moving all extremities. No overt cerebellar signs/incoordination. Psychiatric: Cooperative, appropriate affect. Objective Labs 03/25/25 04:52 03/25/25 04:52 Labs: Laboratory Results - last 24 hr 03/11/25 05:27 WBC 6.5 D RBC 2.40 L Hgb 7.5 L Hct 23.0 L MCV 96 MCH 31.3 MCHC 32.6 RDW Std Deviation 75.9 H Plt Count 114 L Neut % (Auto) 90 H Lymph % (Auto) 5 L [place] % (Auto) 4 Eos % (Auto) 0 Baso % (Auto) 1 Neut # (Auto) 5.9 Lymph # (Auto) 0.3 L [place] # (Auto) 0.3 Eos # (Auto) 0.0 Baso # (Auto) 0.0 Immature Gran # (Auto) 0.03 H Absolute Nucleated RBC 0.00 Immature Gran % 1 H Nucleated RBC % 0 ESR 16 Sodium 139 Potassium 4.6 D Chloride 106 Carbon Dioxide 24.2 Anion Gap 9 BUN 17 Creatinine 1.4 H Estim Creat Clear Calc 46.2 L eGFR 51 L BUN/Creatinine Ratio 12 Glucose 112 H Calculated Osmolality 280 Calcium 8.1 L Corrected Calcium 9.0 Phosphorus 4.1 Magnesium 2.3 Total Bilirubin 1.1 AST 41 H ALT < 7 L Alkaline Phosphatase 30 L Ammonia < 10 L Total Protein 5.2 L Albumin 2.9 L Globulin 2.3 Albumin/Globulin Ratio 1.3 ABG Interpretation ABG results: 03/05/25 03/09/25 13:17 23:55 ABG pH 7.45 ABG pCO2 27 L ABG pO2 122 H ABG HCO3 18 L ABG O2 Saturation 100 H ABG Base Excess -5 L VBG pH 7.39 VBG pCO2 36 VBG pO2 31 VBG Base Excess -3 Quality Measures Quality Measures none Advance care planning discussed with:: patient and spouse Assessment & Plan Assessment Current Active Medications: Generic Name Dose Route Start Last Admin Trade Name Freq PRN Reason Stop Dose Admin Acetaminophen 650 mg 03/05/25 15:28 03/11/25 01:34 Acetaminophen 325 Mg Tablet PO 04/04/25 15:27 650 mg Q6H PRN Administration Fever >101.5 or pain (1-3) Al Hydrox/Mg Hydrox/Simethicone 15 ml 03/06/25 18:00 03/11/25 11:04 Mg Hyd/Al Hyd/Mei (Maalox Reg) Susp 30 Ml Udc PO 04/05/25 17:59 15 ml Q4HR CLAUDE Administration Atorvastatin Calcium 40 mg 03/05/25 21:00 03/10/25 20:15 Atorvastatin Calcium 20 Mg Tablet PO 04/04/25 20:59 40 mg HS CLAUDE Administration Vancomycin HCl 200 mls @ 120 mls/hr 03/11/25 10:00 Vancomycin/Water 1gm Ivpb IV 03/18/25 09:59 QDAY@1000 CLAUDE Protocol Piperacillin/Tazobactam/Dextrose 3.375 g in 50 mls @ 12.5 mls/hr 03/10/25 10:33 03/11/25 05:19 Zosyn IV 03/17/25 10:32 12.5 mls/hr Q8HR CLAUDE Administration Amiodarone HCl/Dextrose 360 mg in 200 mls @ 33.333 mls/hr 03/11/25 10:19 Nexterone Ivpb IV 03/11/25 16:18 .Q6H ONE Amiodarone HCl/Dextrose 360 mg in 200 mls @ 16.667 mls/hr 03/11/25 16:19 Nexterone Ivpb IV 03/12/25 16:18 .Q12H CLAUDE Ondansetron HCl 4 mg 03/05/25 13:06 Ondansetron Inj 2 Mg/Ml Inj 2 Ml IVP 04/04/25 13:05 Q4HR PRN NAUSEA OR VOMITING Pantoprazole Sodium 40 mg 03/11/25 09:00 03/11/25 08:57 Pantoprazole 40 Mg Tablet PO 04/10/25 08:59 40 mg BID CLAUDE Administration Pharmacy Consult 1 each 03/10/25 00:05 Vancomycin Pharmacy To Dose 1 Each Each IV 04/09/25 00:04 QDAY PRN PROTOCOL Rivaroxaban 10 mg/ Rivaroxaban 15 mg 03/10/25 09:00 03/11/25 08:57 5 mg PO 04/09/25 08:59 15 mg QDAY CLAUDE Administration Sucralfate 1 gm 03/06/25 17:00 03/11/25 11:04 Sucralfate Susp 1 Gm/10 Ml Udc PO 04/05/25 16:59 1 gm ACHS CLAUDE Administration Plan Mr. Rios is an 79-year-old male with a history of A-fib on Xarelto, hypertension, and polymyalgia rheumatica who presents to [facility] ED on 03/05 for generalized weakness and inability to walk. The patient was admitted for GI bleed. #Fevers #Acute encephalopathy, unknown etiology #? Cellulitis of left upper extremity Patient was initially brought to ED due to concerns of altered mental status and generalized fatigue that had sudden onset on 03/05 in the morning. This was initially assumed due to symptomatic anemia. However, the patient was noted to have episodes of acute altered mental status periodically throughout hospitalization. Rapid response was called on 03/08 for this acute altered mental status episode with slurred speech, which she was upgraded to code stroke. Neurology was consulted, and at the time CT head and CTA head and neck were negative for acute strokes. MRI was not recommended at that time due to concerns of an underlying metabolic encephalopathy. The patient then had a return to baseline mentation, until a second rapid response was called on 03/10 in the door attendant for acute altered mental status change, slurred speech, and fever. The patient would gradually recover to baseline mentation afterwards. Patient had a fever on 03/08 initially, which has become more frequent over time. Tmax 102.4. Patient did have a sudden spike in WBC on second rapid response without leukocytosis, however this WBC quickly resolved back to baseline about 3 hours later. Patient was noted to have a large erythematous discoloration on the left arm that was first noted on 03/08, which was initially a very dark discoloration, swollen, very tender to touch, however over time the discoloration has spread to encompass his entire arm, but has become less dark and is no longer tender to touch on 03/10. Investigated potential causes of fevers due to medication, low possibility due to Protonix and/or Digoxin. Piperacillin/tazobactam is a possible cause of fever, however this was added on after the patient was already experiencing fevers. Ddx: Cellulitis, meningitis, Coccidioides infection, stroke, delayed nonhemolytic transfusion reaction, febrile nonhemolytic transfusion reaction, hospital acquired pneumonia ? Head of bed at 30 degrees ? Ordered digoxin, TSH, free T4, vitamin B12, and folate levels for metabolic workup ? Ordered B12 1000 mcg injection 03/09 ? Ordered Dixon test to test for delayed hemolytic transfusion reaction, which was negative ? Chest x-ray 03/09 showed moderate vascular congestion, no lobar pneumonia ? Started patient on vancomycin and piperacillin/tazobactam (03/10--) ? Continue to follow blood and urine cultures, all collected cultures have been negative for this hospitalization thus far ? Ordered Coccidioides IgM with reflex IgG, pending results ? Neurology consulted, recommends EEG ? Ordered MRI head with and without contrast 03/11 ? Ordered ESR and CRP, will trend if positive ? Ordered HSV ? Infectious disease consulted, appreciate recommendations #A-fib with RVR, on Xarelto Patient has a history of atrial fibrillation and sees wire lather Dr. Colon for management. Patient is currently on Xarelto and digoxin. Asked pharmacy about digoxin dosing and they confirmed 0.125 mg daily while patient's family states that the patient takes 0.125 mg Friday and Friday. Contacted Dr. Colon for confirmation, and he stated that the patient was okay taking 0.125 mg Friday. CHADS-VASC score 4 (stroke risk 4.8% per year) HAS-BLED score 3 (bleed risk 5.8%, patient is at high risk for major bleeding) ? Stop patient's home digoxin ? Started patient on amiodarone drip, will transition to amiodarone p.o. upon completion ? Will hold home Xarelto 15 mg daily- in anticipation of LP by neurology ? Consulted cardiology, Dr. Colon, who agrees with transition from digoxin to amiodarone, also recommends Cardizem p.o. every 6 hours if needed #Stroke ruled out #History of TIA #Transient aphasia Due to episodes of altered mental status, the patient had a code stroke called. CT head without contrast and CTA head and neck were negative for stroke. Teleneurology was consulted, who recommended investigating causes of metabolic encephalopathy. ? Patient resumed Xarelto 15 mg daily given resolution of angiodysplastic bleeding in stomach and colon ? Low suspicion of stroke at this time given negative workup ? Ordered MRI head with and without contrast 03/11 #Upper and lower GI bleed 2/2 #Angiodysplasias of GI tract #Symptomatic anemia (resolved) Patient was brought to ED due to generalized fatigue and difficulty waking on the morning of 03/05. When patient was brought to the ED, his RBC was 1.58, hemoglobin 5.7, and hematocrit was 17.2. The patient endorsed black tarry stools that started about 2 to 3 weeks ago, but has only had this acute weakness on 03/05. ? Consulted GI ? Initial EGD showed angiodysplastic bleeding in gastric body and gastric fundus, requiring cautery and clipping. ? Repeat EGD 03/07, which showed no additional bleeding ? Colonoscopy planned for 03/08, delayed to 03/09, which showed moderate diverticulosis in sigmoid and descending colon, and multiple bleeding colonic angiodysplastic lesions that were treated with argon plasma coagulation ? 2 units of blood ordered 03/05, repeat H&H ordered after transfusion; addition 2 units of blood ordered 03/07 with repeat H&H. ? Investigating causes of angiodysplasias ? Patient denies history of abnormal bleeding in family history, so hereditary hemorrhagic telangiectasias less likely ? Echocardiogram pending to identify possible cardiac vulvular stenosis ? Patient to follow-up with Dr. Bauer, GI, and referral to perform capsule endoscopy # VANNA on CKD likely prerenal (resolved) In the ED, the patient had a BUN of 85, creatinine of 2.1, and GFR of 31. Patient does not have any known history of CKD. This is likely due to acute loss of blood due to GI bleed, resulting in decreased blood flow to the kidneys, which led to VANNA. This is expected to resolve with resuscitation by blood products. -Per chart reviewing pt have history of CKD with Cr around 1.4-1.7 ? Renally dose medications ? Avoid nephrotoxic medications ? Will hold off on IV fluid hydration given significantly decreased H&H on admission #?CHF Patient does not have a documented history of CHF, but patient takes furosemide 20 mg p.o. daily at home. Echocardiogram done on 04/30/2018 showed EF of 50% with moderate mitral regurgitation. ? Will hold patient's home furosemide given current GI bleed ? Strict ins and outs ? Daily weights ordered #Primary Hypertension Patient has a history of hypertension. Patient takes benazepril 40 mg daily and clonidine 0.2 mg 3 times daily at home. ? Will hold patient's home antihypertensives given GI bleed ? Will monitor blood pressure closely ? Will hold home benazepril, clonidine, furosemide DVT Prophylaxis: Xarelto-will hold ?LP GI Prophylaxis: Protonix Bowel: N/A Diet: Cardiac diet Justin: N/A Lines: Peripheral IV Antibiotics: Vancomycin and Zosyn (03/10--) Code Status: FULL Reason for Hospitalization: GI bleed Other Barriers to Discharge: Fever, A fib RVR Patient plan of care was discussed with the senior resident Dr. Kelly (PGY-2) and attending physician Dr. Ross. Jhon Levien, PGY1
[2025-03-11] MEDS: AMIODARONE 360 MG IVPB 360 MG/200 ML BAG 33.333 MG IV (11:28)
[2025-03-11 11:29] LABS: C-Reactive Protein 29.8 mg/dL (0.0-0.9)
[2025-03-11] MEDS: VANCOMYCIN/WATER 1GM IVPB 200 ML IV (14:26)
[2025-03-11 15:10] LABS: Cocci Serology, IgM Negative (Negative)
--- NOTE | 2025-03-11 15:22 | PD.IMCONS ---
HPI Data of Consult Requesting Physician: Nathan Ross MD Primary Care Provider: Carrie Barakat MD Consult Narrative History of present illness: This is a 79-year-old male with past medical history of atrial fibrillation on Xarelto, polymyalgia rheumatica on adalimumab, hypertension, heart failure and hyperlipidemia pt was admitted with weakness, imbalabce and difficulty to walk CT head was negative; pt was hypotensive and tachycardic- afib pt treated with fluids and pt continue to be tachycardic amiodarone drip was started HR currently 120-130 afib pt appears confused cc:: cc: Nathan Ross MD Meds Home Medications and Allergies Home Medications ?Medication ?Instructions ?Recorded ?Confirmed ?Type benazepril 40 mg tablet 40 mg PO QDAY 04/30/18 03/05/25 History clonidine HCl 0.2 mg tablet 0.2 mg PO TID 04/30/18 03/05/25 History rivaroxaban 15 mg tablet (Xarelto) 15 mg PO QDAY 04/30/18 03/05/25 History digoxin 125 mcg (0.125 mg) tablet 0.125 mg PO QDAY 03/05/25 03/05/25 History furosemide 20 mg tablet 20 mg PO QDAY 03/05/25 03/05/25 History Allergies Allergy/AdvReac Type Severity Reaction Status Date / Time No Known Allergies Allergy Verified 02/04/25 10:02 Exam Vital Signs Temp Pulse Resp BP Pulse Ox O2 Del Method O2 Flow Rate 98.4 F 123 H 27 H 142/92 H 96 Nasal Cannula 2 03/11/25 12:03/11/25 12:03/11/25 12:03/11/25 12:03/11/25 12:03/11/25 12:03/11/25 12:00 Routine HEENT Exam Head: Present normocephalic and atraumatic Eye: Present EOMI and PERRL ENT: Present mucous membranes moist Routine Neck Exam Neck: Present supple and trachea midline Routine Respiratory Exam Respiratory: Present chest non-tender, lungs clear, normal breath sounds and no resp distress Routine Cardiovascular Exam Cardiovascular: Present RRR Routine Abdominal Exam Abdominal: Present soft and normoactive bowel sounds Routine Extremities Exam Extremities: Present full ROM Routine Skin Exam Skin: Present intact, dry and warm Routine Neurological Exam Neurological: Present alert, oriented X3 and CN II-XII intact Routine Psychiatric Exam Psychiatric: Present normal affect and normal thought process Results Labs 03/11/25 05:27 03/11/25 05:27 Labs: Short CBC 03/11/25 Range/Units 05:27 WBC 6.5 D (3.8-10.6) Thou/mm3 Hgb 7.5 L (13.5-16.0) g/dL Hct 23.0 L (41.0-53.0) % Plt Count 114 L (140-440) Thou/mm3 BMP 03/11/25 05:27 Sodium 139 Potassium 4.6 D Chloride 106 Carbon Dioxide 24.2 BUN 17 Creatinine 1.4 H Glucose 112 H Calcium 8.1 L Liver Function 03/11/25 Range/Units 05:27 Total Bilirubin 1.1 (0.3-1.2) mg/dL AST 41 H (0-34) U/L ALT < 7 L (10-49) U/L Alkaline Phosphatase 30 L (46-116) U/L Albumin 2.9 L (3.4-4.8) gm/dL ABG Interpretation ABG results: 03/05/25 03/09/25 13:17 23:55 ABG pH 7.45 ABG pCO2 27 L ABG pO2 122 H ABG HCO3 18 L ABG O2 Saturation 100 H ABG Base Excess -5 L VBG pH 7.39 VBG pCO2 36 VBG pO2 31 VBG Base Excess -3 Assessment and Plan Assessment and plan (1) Atrial fibrillation: Status: Acute (2) Altered mental status: Status: Acute (3) Severe anemia: Status: Acute (4) GI (gastrointestinal bleed): Status: Acute (5) Acute kidney injury: Status: Acute Additional Assessment & Plan Additional Plan: pt HR is in the 120-130 range contine amiodarone drip xarelto add cardizem echo to be done
--- NOTE | 2025-03-11 15:37 | ECHO_ITS ---
Transthoracic Echo Report Ht (in): 75 Wt (lb): 187 Exam Location: Echo Lab Status: Inpatient Aircraft Part Assembler: Loretta Meléndez Indications: Procedure Performed: BP: 151 / 108 HR: 115 Technical Quality: Technically difficult study MEASUREMENTS (Male / Female) Normal Values 2D ECHO LV Diastolic Diameter PLAX 4.6 cm 4.2 - 5.9 / 3.9 - 5.3 cm LV Systolic Diameter PLAX 3.0 cm IVS Diastolic Thickness 1.1 cm 0.6 - 1.0 / 0.6 - 0.9 cm LVPW Diastolic Thickness 1.3 cm 0.6 - 1.0 / 0.6 - 0.9 cm LV Relative Wall Thickness 0.5 LV Ejection Fraction MOD BP 35.2 % >= 55 % LV Cardiac Index MOD BP 2101.5 cm?/min?m? LV Ejection Fraction MOD 4C 42.1 % LV Cardiac Index MOD 4C 2812.9 cm?/min?m? LV Ejection Fraction 4C AL 43.8 % LV Cardiac Index 4C AL 3087.9 cm?/min?m? LV Ejection Fraction MOD 2C 36.6 % LV Cardiac Index MOD 2C 1916.9 cm?/min?m? LV Ejection Fraction 2C AL 35.7 % LV Cardiac Index 2C AL 1835.0 cm?/min?m? LA Volume Index 52.3 cm?/m? 16 - 28 cm?/m? DOPPLER AV Peak Velocity 206.3 cm/s AV Peak Gradient 17.0 mmHg AV Mean Gradient 8.5 mmHg AV Velocity Time Integral 37.1 cm LVOT Peak Velocity 73.2 cm/s LVOT Peak Gradient 2.1 mmHg LVOT Velocity Time Integral 15.3 cm MV Peak Velocity 134.0 cm/s MV Peak Gradient 7.2 mmHg MV Mean Velocity 76.7 cm/s MV Mean Gradient 3.0 mmHg MV Area PHT 3.9 cm? MR Peak Velocity 567.3 cm/s MR Peak Gradient 128.7 mmHg Mitral E Point Velocity 107.0 cm/s LV E' Lateral Velocity 10.3 cm/s Mitral E to LV E' Lateral Ratio 10.4 LV E' Septal Velocity 8.7 cm/s Mitral E to LV E' Septal Ratio 12.3 TR Peak Velocity 302.7 cm/s TR Peak Gradient 36.6 mmHg FINDINGS Left Ventricle Normal left ventricular size. Milld LVH. Normal left ventricular diastolic filling pattern for age. The ejection fraction is visually estimated at 55%. Right Ventricle The right ventricular size is mildy increased with normal systolic function. Left Atrium Severely increased left atrial volume 52.3 mL/m?. Right Atrium The right atrium is normal by two-dimensional imaging, color flow and Doppler imaging with no structural abnormalities, no thrombus formation present. Atrial Septum The interatrial septum appears normal with no evidence of a shunt. Aorta The aortic root and proximal ascending aorta are not well visualized. Mitral Valve Mild thickening of the mitral valve leaflets. Moderate mitral regurgitation. Aortic Valve Aortic valve sclerosis without stenosis. Mild aortic valve regurgitation. Tricuspid Valve The tricuspid valve is normal by two-dimensional, color flow and Doppler interrogation. There is mild tricuspid valve regurgitation. Pulmonic Valve The pulmonic valve is not well visualized. There is no significant pulmonic valve regurgitation. Vessels Inferior vena cava not well visualized. Pericardium The pericardium is normal by two-dimensional imaging. There is no significant pericardial effusion. CONCLUSIONS Indication: CVA Negative bubble study. Normal LV size. Mild LVH. Estimated EF at 55%. The RV size is mildy increased with normal systolic function. Severely increased LA volume 52.3 mL/m?. Mild thickening of the mitral valve leaflets with mild mitral regurgitation. Aortic valve sclerosis without stenosis wiyh mild aortic regurgitation Mild tricuspid regurgitation qith normal PA pressure No thrombi. Suma De Los Santos (Electronically Signed) Final Date: 13 March 2025 10:48
--- NOTE | 2025-03-11 17:00 | PC.SS ---
rounding note: Iv antibiotics
[2025-03-11] MEDS: DILTIAZEM 30 MG TABLET PO ×2 (17:32→21:03)
--- NOTE | 2025-03-11 17:43 | ESPR_ITS ---
Documentation for date of: 03/11/25 Subjective Subjective Interval history: Globin hematocrit 7.5 and 23.0 No signs of any active bleeding Spoke with the internal medicine team Upon discharge I will see him as an outpatient to schedule a capsule endoscopy Exam Vital Signs Temp Pulse Resp BP Pulse Ox O2 Del Method O2 Flow Rate 98.3 F 124 H 30 H 133/92 H 93 L Nasal Cannula 2 03/11/25 16:00 03/11/25 17:32 03/11/25 16:00 03/11/25 17:32 03/11/25 16:00 03/11/25 16:00 03/11/25 16:00 Objective Labs 03/11/25 05:27 03/11/25 05:27 Labs: Laboratory Results - last 24 hr 03/10/25 03/11/25 11:25 05:27 WBC 6.5 D RBC 2.40 L Hgb 7.5 L Hct 23.0 L MCV 96 MCH 31.3 MCHC 32.6 RDW Std Deviation 75.9 H Plt Count 114 L Neut % (Auto) 90 H Lymph % (Auto) 5 L Evangeline % (Auto) 4 Eos % (Auto) 0 Baso % (Auto) 1 Neut # (Auto) 5.9 Lymph # (Auto) 0.3 L Evangeline # (Auto) 0.3 Eos # (Auto) 0.0 Baso # (Auto) 0.0 Immature Gran # (Auto) 0.03 H Absolute Nucleated RBC 0.00 Immature Gran % 1 H Nucleated RBC % 0 ESR 16 Sodium 139 Potassium 4.6 D Chloride 106 Carbon Dioxide 24.2 Anion Gap 9 BUN 17 Creatinine 1.4 H Estim Creat Clear Calc 46.2 L eGFR 51 L BUN/Creatinine Ratio 12 Glucose 112 H Calculated Osmolality 280 Calcium 8.1 L Corrected Calcium 9.0 Phosphorus 4.1 Magnesium 2.3 Total Bilirubin 1.1 AST 41 H ALT < 7 L Alkaline Phosphatase 30 L Ammonia < 10 L C-Reactive Prot, Quant 29.8 H Total Protein 5.2 L Albumin 2.9 L Globulin 2.3 Albumin/Globulin Ratio 1.3 Coccidioides IgM Ab Negative Impressions Impression: 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 requiring bipolar gold heater probe and placement of a Endo Clip Multiple AVMs proximal ascending colon status post APC laser Hemoglobin hematocrit relatively stable Continue current management ABG Interpretation ABG results: 03/05/25 03/09/25 13:17 23:55 ABG pH 7.45 ABG pCO2 27 L ABG pO2 122 H ABG HCO3 18 L ABG O2 Saturation 100 H ABG Base Excess -5 L VBG pH 7.39 VBG pCO2 36 VBG pO2 31 VBG Base Excess -3 Assessment & Plan A&P Narrative pt HR is in the 120-130 range contine amiodarone drip xarelto add cardizem echo to be done Time Spent With Patient Time: Total time spent is greater than 50% in coordination of care (as documented) at patient's floor/unit and/or counseling patient:
[2025-03-11] MEDS: AMIODARONE 360 MG IVPB 360 MG/200 ML BAG 16.667 MG IV (19:51)
[2025-03-11] MEDS: ATORVASTATIN CALCIUM 20 MG TABLET 40 MG PO (21:03)
--- NOTE | 2025-03-11 23:50 | ESPR_ITS ---
Documentation for date of: 03/11/25 Subjective Subjective Interval history: Patient was seen in Telemetry today with intermittent episodes of confusion and dysarthria. Cardiology is on board and now his abdomen is distended. Exam - Neurology Vital Signs Temp Pulse Resp BP Pulse Ox O2 Del Method O2 Flow Rate 98.0 F 115 H 20 131/95 H 99 Nasal Cannula 3 03/11/25 20:00 03/11/25 22:55 03/11/25 22:55 03/11/25 21:03 03/11/25 22:55 03/11/25 20:00 03/11/25 22:55 Narrative Exam GENERAL APPEARANCE: Well hydrated, well-nourished in no acute distress. HEENT: Normocephalic, atraumatic, extraocular movements intact. Pupils: Equal reacting to light NECK: Supple, no JVD or bruits. CARDIOVASULAR: Heart: S1, S2 heard, regular without S3-S4 or murmur no rubs or gallops. LUNGS/CHEST: Clear to auscultation bilaterally. No rails, rhonchi, or wheezing. Normal inspection. ABDOMEN: Soft, nontender, with normal bowel sounds. No pulsatile masses. No rebound, rigidity, or guarding. Normal inspection and palpation. EXTREMITIES: Normal inspection and palpation. No edema, clubbing or cyanosis. SKIN: Warm and dry without rashes. Normal inspection. MUSCULOSKELETAL: No cervical, thoracic, lumbar or midline bony tenderness. Normal inspection. NEURO: Alert, awake and oriented x3. Cranial nerves: II through XII grossly intact. Speech and language: Normal with no dysarthria or dysphasia. Motor system: Tone and bulk: Normal: Strength: 5 out of 5 in all 4 extremities; No pronator drift noted. Deep tendon reflexes: 2+ bilaterally symmetrical. Plantar reflex: Downgoing bilaterally. Sensory system: Intact to pinprick sensation bilaterally. Coordination: Intact to [id number] and mjxo-rcla-iczo test bilaterally. No ataxia, no dysmetria, or dysdiadochokinesia noted. No intention tremors noted. Gait: not tested. No signs of meningeal irritation noted. PSYCHIATRIC: Normal mood and affect. Objective Labs 03/13/25 17:30 03/13/25 05:21 Labs: Laboratory Results - last 24 hr 03/10/25 03/11/25 11:25 05:27 WBC 6.5 D RBC 2.40 L Hgb 7.5 L Hct 23.0 L MCV 96 MCH 31.3 MCHC 32.6 RDW Std Deviation 75.9 H Plt Count 114 L Neut % (Auto) 90 H Lymph % (Auto) 5 L [place] % (Auto) 4 Eos % (Auto) 0 Baso % (Auto) 1 Neut # (Auto) 5.9 Lymph # (Auto) 0.3 L [place] # (Auto) 0.3 Eos # (Auto) 0.0 Baso # (Auto) 0.0 Immature Gran # (Auto) 0.03 H Absolute Nucleated RBC 0.00 Immature Gran % 1 H Nucleated RBC % 0 ESR 16 Sodium 139 Potassium 4.6 D Chloride 106 Carbon Dioxide 24.2 Anion Gap 9 BUN 17 Creatinine 1.4 H Estim Creat Clear Calc 46.2 L eGFR 51 L BUN/Creatinine Ratio 12 Glucose 112 H Calculated Osmolality 280 Calcium 8.1 L Corrected Calcium 9.0 Phosphorus 4.1 Magnesium 2.3 Total Bilirubin 1.1 AST 41 H ALT < 7 L Alkaline Phosphatase 30 L Ammonia < 10 L C-Reactive Prot, Quant 29.8 H Total Protein 5.2 L Albumin 2.9 L Globulin 2.3 Albumin/Globulin Ratio 1.3 Coccidioides IgM Ab Negative ABG Interpretation ABG results: 03/05/25 03/09/25 13:17 23:55 ABG pH 7.45 ABG pCO2 27 L ABG pO2 122 H ABG HCO3 18 L ABG O2 Saturation 100 H ABG Base Excess -5 L VBG pH 7.39 VBG pCO2 36 VBG pO2 31 VBG Base Excess -3 Assessment & Plan Assessment and plan (1) Altered mental status: Status: Acute Assessment and plan: LP could not be done sec. to Dougie on board. Fever spikes noted this morning FU with MRI brain and EEG (2) Atrial fibrillation: Status: Acute Assessment and plan: continue with rate control, amio (3) Severe anemia: Status: Acute Assessment and plan: HGB stable following transfusion (4) GI (gastrointestinal bleed): Status: Acute Assessment and plan: GI workup completed, findings noted. (5) Acute kidney injury: Status: Acute Assessment and plan: creat : 1.5, GFR: 51 follow closely
[2025-03-12] VITALS (16 sets, daily range): BP systolic 115–158; BP diastolic 80–111; PULSE 100–131; RESP 18–28; TEMP 36.1–36.9; O2SAT 92–100; BMI 30.1
[2025-03-12] MEDS: DILTIAZEM 30 MG TABLET PO (05:06)
[2025-03-12] MEDS: PIPER/TAZO 3.375 GM PREMIX 3.375 G/50 ML BAG IV ×3 (05:06→22:11)
[2025-03-12] MEDS: MG HYD/AL HYD/SIME (Maalox Reg) SUSP 30 ML UDC 15 ML PO ×2 (05:06→09:28)
[2025-03-12 05:46] LABS: Basophils # (Auto) 0.0 Thou/mm3 (0.0-0.2); Basophils % (Auto) 0 % (0-2.5); Eosinophils # (Auto) 0.0 Thou/mm3 (0.0-0.5); Eosinophils % (Auto) 0 % (0-10); Hematocrit 24.2 % (41.0-53.0); Immature Granulocytes Auto 0.07 Thou/mm3 (0.00-0.00); Lymphocytes # (Auto) 0.3 Thou/mm3 (1.0-4.8); Lymphocytes % (Auto) 4 % (10-50); Mean Corpuscular HGB Conc 32.2 g/dl (31.0-37.0); Mean Corpuscular Hemoglobin 30.6 pg (25.0-35.0); Mean Corpuscular Volume 95 fL (80-100); Monocytes # (Auto) 0.4 Thou/mm3 (0.0-0.8); Monocytes % (Auto) 5 % (0-12); Neutrophils # (Auto) 7.5 Thou/mm3 (1.8-7.7); Neutrophils % (Auto) 90 % (37-80); Nucleated Red Blood Cell # 0.00 Thou/mm3 (0.00-0.00); Nucleated Red Blood Cell % 0 /100 WBC (0); Platelet Count 188 Thou/mm3 (140-440); RDW Standard Deviation 76.5 fL (35.1-43.9); Red Blood Count 2.55 Miln/mm3 (4.50-5.90); White Blood Count 8.4 Thou/mm3 (3.8-10.6)
[2025-03-12 05:52] LABS: Hemoglobin 7.8 g/dL (13.5-16.0)
--- NOTE | 2025-03-12 06:16 | XR_ITS ---
Examination: AP chest single view Technique one AP portable upright chest single view Date and time: March 12, 2025, 0800 hrs., Comparison March 10, 2025 Indications: Difficulty breathing this week. Findings: Moderate enlargement cardiac contour. Prominent vascular congestion. Pneumonia at the lung bases. The osseous structures are intact Impression: Bibasilar pneumonia. Mild heart failure
--- NOTE | 2025-03-12 06:16 | XR_ITS ---
Examination: Abdomen AP single view Technique: AP portable supine abdomen, single view Exam date and time: March 12, 2025 at 0801 hrs. Indications: Distended abdomen today. Findings: Significantly air distended stomach Prominently air distended small bowel loops Opacity at the lung bases No definite free air Impression: High-grade mechanical small bowel obstruction pattern
[2025-03-12 06:33] LABS: Alanine Aminotransferase 29 U/L (10-49); Albumin, Serum 3.1 gm/dL (3.4-4.8); Albumin/Globulin Ratio 1.3 (1.2-2.2); Alkaline Phosphatase 47 U/L (46-116); Anion Gap 13 (7-16); Aspartate Amino Transferase 67 U/L (0-34); BUN/Creatinine Ratio 16 Ratio (12-20); Bilirubin,Total 0.9 mg/dL (0.3-1.2); Blood Urea Nitrogen 28 mg/dL (9-23); Calcium 8.5 mg/dL (8.3-10.6); Calcium (Corrected) 9.2 mg/dL (8.5-10.1); Carbon Dioxide 23.7 mMol/L (20.0-31.0); Chloride 104 mMol/L (98-107); Creatinine (Component) 1.8 mg/dL (0.6-1.3); Estimated Creatinine Clearance 40.6 mL/min (>60); Globulin 2.3 gm/dL (2.3-3.5); Glucose 117 mg/dL (74-106); Magnesium 2.3 mg/dL (1.6-2.6); Osmolality,Calculated 287 (275-295); Phosphorous 4.0 mg/dL (2.4-5.1); Potassium 3.7 mMol/L (3.4-5.1); Sodium 141 mMol/L (136-145); Total Protein 5.4 gm/dL (5.7-8.2); eGFR 38 See Note
[2025-03-12] MEDS: SUCRALFATE SUSP 1 GM/10 ML UDC PO (08:32)
[2025-03-12] MEDS: PANTOPRAZOLE 40 MG TABLET PO (08:32)
[2025-03-12] MEDS: AMIODARONE 360 MG IVPB 360 MG/200 ML BAG 16.667 MG IV ×2 (09:11→22:43)
--- NOTE | 2025-03-12 11:00 | EKG_ITS ---
[facility] Test Date: 2025-03-12 Pat Name: BIN BARNETT [facility] Event Promotions Coordinator: KAILEY : 1945 Requested By: Jessica Kelly Order Number: [id number] Reading MD: Jessica Kelly Measurements Intervals [place] Rate: 122 P: NC: QRS: 9 QRSD: 90 T: -85 QT: 303 QTc: 433 Interpretive Statements ATRIAL FIBRILLATION WITH RAPID VENTRICULAR RESPONSE NONSPECIFIC ST & T-WAVE ABNORMALITY Compared to ECG 03/10/2025 00:15:00 No significant changes /store/S0/[id number]/ecg/[id number].pdf
[2025-03-12] MEDS: VANCOMYCIN/WATER 1GM IVPB 200 ML IV (11:07)
--- NOTE | 2025-03-12 11:32 | PD.SURCONS ---
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 He denies any history of pain. He has not had any such pain in the past and he has stopped his bleeding. However his abdomen was distended and residents asked me to see if we can decompress the Meds Home Medications and Allergies Home Medications ?Medication ?Instructions ?Recorded ?Confirmed ?Type benazepril 40 mg tablet 40 mg PO QDAY 04/30/18 03/05/25 History clonidine HCl 0.2 mg tablet 0.2 mg PO TID 04/30/18 03/05/25 History rivaroxaban 15 mg tablet (Xarelto) 15 mg PO QDAY 04/30/18 03/05/25 History digoxin 125 mcg (0.125 mg) tablet 0.125 mg PO QDAY 03/05/25 03/05/25 History furosemide 20 mg tablet 20 mg PO QDAY 03/05/25 03/05/25 History Allergies Allergy/AdvReac Type Severity Reaction Status Date / Time No Known Allergies Allergy Verified 02/04/25 10:02 Exam Vital Signs Temp Pulse Resp BP Pulse Ox O2 Del Method O2 Flow Rate 97.8 F 124 H 22 H 144/105 H 92 L Nasal Cannula 4 03/12/25 08:00 03/12/25 09:11 03/12/25 08:00 03/12/25 09:11 03/12/25 08:00 03/12/25 08:00 03/12/25 08:00 Narrative Exam My physical examination revealed a little confused elderly gentleman with a distention of the abdomen. But it is not tender and there is no signs of peritonitis. Bowel sounds were absent Results Results: Laboratory Laboratory Narrative: Laboratory results are within normal limits Results: Imaging Imaging narrative: Flatplate of the abdomen showed dilated stomach as well as small bowel. Assessment & Plan Additional Assessment Additional comments: Impression: Abdominal distention following endoscopy and colonoscopy Plan Plan Plan: I do not see any contraindication for inserting an NG tube to decompress the patient. Patient if he needs a Gastrografin could be performed because it causes very little harm to AVM. I also strongly suggest to talk to antisqueak chalker Dr. Bauer about the therapeutic recommendation.
--- NOTE | 2025-03-12 12:37 | XR_ITS ---
Examination: CT abdomen and pelvis without contrast. Coronal 3-D reconstructions. Sagittal 2-D reconstructions. Date and time of exam:March 12, 2025, 1409 hrs. Indications: Abdominal pain and distention this week CTDI: vol (mGy): 10.7 DLP: (mGycm): 603 Technique: Axial images of the abdomen have been obtained, 3 mm slice thickness Intravenous contrast material has not been administered. Low dose protocols were performed. One or more of the following dose reduction techniques were used; automated exposure control, adjustment of the mA and/or KV according to patient size, use of iterative reconstruction technique. Findings: Bibasilar pneumonia with small pleural effusions Mild enlargement cardiac contour Pneumoperitoneum No visualized liver or splenic lesion No gallstones Orogastric tube in the stomach Distended small bowel loops No hydronephrosis, bilateral renal cysts Aorta is not enlarged Air droplets adjacent to the small bowel loops and also adjacent to the right colon with inflammatory change Air droplets appear in the wall of the small bowel loops No urinary bladder mass Severe osteopenia Impression: Bibasilar pneumonia with small pleural effusions Pneumoperitoneum Suspicious for ischemic bowel including right colon and small bowel, significantly distended small bowel loops consistent with obstruction Recommend surgical consultation.
--- NOTE | 2025-03-12 12:38 | XR_ITS ---
Examination: AP chest single view Technique one AP portable upright chest single view Date and time: March 12, 2025, 1407 hrs., Comparison March 12, 2025 0800 hrs. Indications: Post orogastric tube placement Findings: Free air beneath right hemidiaphragm Mild enlargement cardiac contour with prominent vascular congestion Suspicious for early pneumonia right base Orogastric tube in the stomach Impression: There appears to be free air beneath right hemidiaphragm, the appearance should be clinically correlated If there has not been operative intervention, consider repeat CT scan abdomen pelvis with intravenous contrast follow-up
--- NOTE | 2025-03-12 12:52 | ESPR_ITS ---
<Statement entered by Jessica Kelly MD - 03/12/25 17:38> Patient was seen and examined at bedside. I agree on the assessment and plan on this note as documented by resident Esther Trujillo DO PGY1. 79-year-old male with past medical history as below, overnight patient had concern of abdominal pain, KUB and chest x-ray ordered by overnight team, this morning patient has significantly distended abdomen, has bilateral wheezing, poor airway protection with increased respiratory effort at bedside, suspicion of aspiration. Chest x-ray this morning showed concern of free air under diaphragm however was not read officially by radiology, general surgery was consulted, patient made strict n.p.o., initially general surgery recommended inserting NG tube for high-grade mechanical SBO, had significant bilious drainage, postprocedure NG tube chest x-ray showed significant air under the diaphragm, obtain CT abdomen pelvis which showed suspicion of ischemic bowel including right colon and small bowel, pneumoperitoneum. Patient reevaluated by surgery and gastroenterology, GI recommended general surgery intervention for ischemic bowel, risks and benefits discussed with patient's primary decision maker and son at bedside, patient and family wants to proceed with full code and full treatment, patient scheduled for surgery this evening, informed hand heel seat fitter team of possible monitoring in ICU postop if general anesthesia decides to keep patient intubated. Type and screen obtained, will hold 2 units PRBC per general surgery recommendation. Earlier this afternoon extensive discussion held with patient's family including primary decision maker , explained to them patient's underlying medical issues and guarded prognosis considering multiple extensive acute medical issues, also talked to Dr. Sukhdev Puentes neuro crit physician who is a family friend and explained patient's medical condition. Disposition telemetry versus ICU, per anesthesia recommendations. Case discussed with attending Dr. Nilson Kelly MD PGY-2 Documentation for date of: 03/12/25 Subjective Subjective Interval history: Overnight patient's abdomen became acutely distended, concerning for SBO. Chest x-ray showed free air under the diaphragm, mild heart failure and early Rt base pneumonia. KUB showed high-grade mechanical SBO pattern. Patient seen and assessed at bedside on 4 L oxy mask with accessory muscle use. Wheezing can be heard without stethoscope. Patient is alert and oriented x 2 to person and time and is more altered per at bedside. Is unable to appropriately answer on questioning. Abdomen is distended, firm, no rebound tenderness and no tenderness on palpation, hypoactive bowel sounds. Ordered stat VBG, lactate. CTAP showed pneumoperitoneum, suspicious for ischemic bowel including right colon and small bowel, significantly distended small bowel loops consistent with obstruction. Surgery consulted for intervention. Gave 500 cc LR bolus and LR 125 cc/hr maintenance. NG tube placed per surgery and GI, however patient pulled out NG tube. MRI showed multiple embolic type acute infarcts in frontal, parietal lobes, basal ganglia and posterior left temporal lobe. Updated Dr. Li. Patient still in A-fib RVR with rate as high as 130s, called pharmacy to increase amiodarone to end tomorrow. Code status reevaluated with surgeon Dr. Smith in the room in light of upcoming surgery. Patient wishes to be full code. Surgery explained in detail as well as risks and benefits. There is a possibility patient will remain intubated post op, ICU team made aware. Exam Vital Signs Temp Pulse Resp BP Pulse Ox O2 Del Method O2 Flow Rate 97.6 F 114 H 24 H 125/100 H 96 Oxy Mask 4 03/12/25 12:00 03/12/25 12:00 03/12/25 12:00 03/12/25 12:00 03/12/25 12:00 03/12/25 12:00 03/12/25 08:00 Narrative Exam GENERAL: AOx2 person and time, in respiratory distress with oxymask 4L, confused HEENT: NC/AT, mucous membranes dry, bilateral sclera anicteric CARDIOVASCULAR: irregular rate and tachycardic, S1/S2 present, 2/6 systolic murmur PULMONARY: ++bilateral wheezing and coarse breath sounds, ++accessory muscle use ABDOMINAL: +tender R>L, distended, firm, hypoactive bowel sounds EXTREMITIES: no peripheral edema SKIN: warm and dry, L arm: slightly swollen, erythematous, bruising present NEURO: CN II-XII grossly intact, no focal deficits, following commands Objective Labs 03/12/25 04:35 03/12/25 04:35 Labs: Laboratory Results - last 24 hr 03/10/25 03/12/25 11:25 04:35 WBC 8.4 RBC 2.55 L Hgb 7.8 L Hct 24.2 L MCV 95 MCH 30.6 MCHC 32.2 RDW Std Deviation 76.5 H Plt Count 188 D Neut % (Auto) 90 H Lymph % (Auto) 4 L [place] % (Auto) 5 Eos % (Auto) 0 Baso % (Auto) 0 Neut # (Auto) 7.5 Lymph # (Auto) 0.3 L [place] # (Auto) 0.4 Eos # (Auto) 0.0 Baso # (Auto) 0.0 Immature Gran # (Auto) 0.07 H Absolute Nucleated RBC 0.00 Immature Gran % 1 H Nucleated RBC % 0 Sodium 141 Potassium 3.7 D Chloride 104 Carbon Dioxide 23.7 Anion Gap 13 BUN 28 H Creatinine 1.8 H Estim Creat Clear Calc 40.6 L eGFR 38 L BUN/Creatinine Ratio 16 Glucose 117 H Calculated Osmolality 287 Calcium 8.5 Corrected Calcium 9.2 Phosphorus 4.0 Magnesium 2.3 Total Bilirubin 0.9 AST 67 H ALT 29 Alkaline Phosphatase 47 D Total Protein 5.4 L Albumin 3.1 L Globulin 2.3 Albumin/Globulin Ratio 1.3 Coccidioides IgM Ab Negative ABG Interpretation ABG results: 03/05/25 03/09/25 13:17 23:55 ABG pH 7.45 ABG pCO2 27 L ABG pO2 122 H ABG HCO3 18 L ABG O2 Saturation 100 H ABG Base Excess -5 L VBG pH 7.39 VBG pCO2 36 VBG pO2 31 VBG Base Excess -3 Quality Measures Quality Measures none Advance care planning discussed with:: child Assessment & Plan Assessment Current Active Medications: Generic Name Dose Route Start Last Admin Trade Name Freq PRN Reason Stop Dose Admin Acetaminophen 650 mg 03/05/25 15:28 03/11/25 01:34 Acetaminophen 325 Mg Tablet PO 04/04/25 15:27 650 mg Q6H PRN Administration Fever >101.5 or pain (1-3) Al Hydrox/Mg Hydrox/Simethicone 15 ml 03/06/25 18:00 03/12/25 09:28 Mg Hyd/Al Hyd/Mei (Maalox Reg) Susp 30 Ml Udc PO 04/05/25 17:59 15 ml Q4HR CLAUDE Administration Atorvastatin Calcium 40 mg 03/05/25 21:00 03/11/25 21:03 Atorvastatin Calcium 20 Mg Tablet PO 04/04/25 20:59 40 mg HS CLAUDE Administration Diltiazem HCl 30 mg 03/11/25 17:00 03/12/25 05:06 Diltiazem 30 Mg Tablet PO 04/10/25 16:59 30 mg QID CLAUDE Administration Vancomycin HCl 200 mls @ 120 mls/hr 03/11/25 10:00 03/12/25 11:07 Vancomycin/Water 1gm Ivpb IV 03/18/25 09:59 120 mls/hr QDAY@1000 CLAUDE Administration Protocol Piperacillin/Tazobactam/Dextrose 3.375 g in 50 mls @ 12.5 mls/hr 03/10/25 10:33 03/12/25 05:06 Zosyn IV 03/17/25 10:32 12.5 mls/hr Q8HR CLAUDE Administration Amiodarone HCl/Dextrose 360 mg in 200 mls @ 16.667 mls/hr 03/11/25 16:19 03/12/25 09:11 Nexterone Ivpb IV 03/12/25 16:18 16.667 mls/hr .Q12H CLAUDE Administration Amiodarone HCl/Dextrose 360 mg in 200 mls @ 16.667 mls/hr 03/12/25 16:18 Nexterone Ivpb IV 03/13/25 16:17 .Q12H CLAUDE Ipratropium [place] 0.5 mg 03/12/25 15:00 Ipratropium Rt 0.5 Mg/ 2.5 Ml Nebu INH 04/11/25 14:59 Q8HRRT CLAUDE Levalbuterol HCl 1.25 mg 03/12/25 14:00 Levalbuterol Rt 1.25 Mg/0.5 Ml Nebu INH 04/11/25 13:59 Q8HR CLAUDE Ondansetron HCl 4 mg 03/05/25 13:06 Ondansetron Inj 2 Mg/Ml Inj 2 Ml IVP 04/04/25 13:05 Q4HR PRN NAUSEA OR VOMITING Pantoprazole Sodium 40 mg 03/12/25 12:45 Pantoprazole Inj 40 Mg Vial IVP 04/11/25 12:44 BID CLAUDE Pharmacy Consult 1 each 03/10/25 00:05 Vancomycin Pharmacy To Dose 1 Each Each IV 04/09/25 00:04 QDAY PRN PROTOCOL Rivaroxaban 10 mg/ Rivaroxaban 15 mg 03/10/25 09:00 03/11/25 08:57 5 mg PO 04/09/25 08:59 15 mg QDAY CLAUDE Administration Sodium Chloride 3 ml 03/12/25 10:45 Sodium Chloride Rt [place]ena 0.9% 3 Ml Nebu INH 04/11/25 10:44 PRN PRN SOLN Sucralfate 1 gm 03/06/25 17:00 03/12/25 08:32 Sucralfate Susp 1 Gm/10 Ml Udc PO 04/05/25 16:59 1 gm ACHS CLAUDE Administration Plan Devan Rios is an 79M pmhx significant for A-fib on Xarelto, hypertension, RA, PMR, and CKDIIIa who presented to [facility] ED on 03/05 for generalized weakness and inability to walk, admitted for upper and lower GIB, course complicated by ischemic CVAs, and fevers and AMS c/f bowel perforation. #Suspected ischemic R colon and small bowel #Pneumoperitoneum c/f bowel perforation #Suspected SBO vs ileus Overnight on 03/11, patient's abdomen acutely distended and tense c/f SBO vs ileus. Repeat KUB showed high grade mechanical SBO pattern. Patient is unable to communicate if he is passing gas, AOx2 to person and time only. CTAP showed pneumoperitoneum, suspicious for ischemic bowel including right colon and small bowel, significantly distended small bowel loops consistent with obstruction Plan: - F/u stat lactate, VBG - Ordered LR 500cc bolus and LR 125 cc/hr maintenance - Hold all oral medications - NG tube placed, per surgery and GI, however patient pulled out NG tube - Surgery Dr. Smith consulted, recs appreciated: surgery planned today #Acute encephalopathy, likely multifactorial 2/2 #Aspiration pneumonia #Fever, improving Presented with fatigue that had sudden onset on 03/05 in the morning likely 2/2 symptomatic anemia. Rapid response x2 were called 03/08 and 03/10 for fever and acute AMS. Since, patient has had fluctuations of mental status return to baseline, then becoming altered. Patient had a fever on 03/08 initially, which has become more frequent over time. Tmax 102.4. Patient did have a sudden spike in WBC on second rapid response without leukocytosis, however this WBC quickly resolved back to baseline about 3 hours later. On 03/11 nursing recorded episode of vomiting, where patient likely aspirated as morning of 03/12, patient desaturated to 93% requiring 4L O2 oxymask. Acute encephalopathy likely multifactorial iso aspiration PNA and stroke. Fever ddx includes L arm cellulitis, meningitis, delayed nonhemolytic transfusion reaction, febrile nonhemolytic transfusion reaction, however improving on antibiotics. Dixon test neg, digoxin levels 0.7, folate and B12 wnl s/p B12 injection 03/09, T4 wnl, CRP and ESR wnl, cocci IgM and IgG neg, BCx and UCx NGTD Plan: - F/u thiamine, HSV ? Vancomycin and piperacillin/tazobactam (03/10--) - Start scheduled Duonebs q8h ? Neurology consulted, recommends EEG and possible LP ? Infectious disease consulted, appreciate recommendations ? Aspiration precautions elevate head of bed at 30 degrees #Ischemic CVA #History of TIA #Transient aphasia Patient has hx of atrial fibrillation on Xarelto which was held on admission 03/05 due to GIB. Due to episodes of altered mental status starting 03/08, the patient had a code stroke called. CT head without contrast and CTA head and neck were negative for stroke. Neurology was consulted, and at the time CT head and CTA head and neck were negative for acute strokes. MRI was not recommended at that time due to concerns of an underlying metabolic encephalopathy. Received Xarelto 15 mg 03/10 and 03/11 03/11 MRI showed multiple embolic type acute infarcts in frontal, parietal lobes, basal ganglia and posterior left temporal lobe Plan: - Xarelto held for possible LP but now iso surgery - Atorvastatin held iso suspected bowel perforation - Neurology consulted, recs appreciated #A-fib with RVR, rate not controlled, on Xarelto Patient has a history of atrial fibrillation and sees education diagnostician Dr. Colon for management. Patient is currently on Xarelto and digoxin. Asked pharmacy about digoxin dosing and they confirmed 0.125 mg daily while patient's family states that the patient takes 0.125 mg Friday and Friday. Contacted Dr. Colon for confirmation, and he stated that the patient was okay taking 0.125 mg Friday. Patient's uncontrolled rate a-fib RVR is likely 2/2 presence of likely suspected SBO vs ileus CHADS-VASC score 4 (stroke risk 4.8% per year) HAS-BLED score 3 (bleed risk 5.8%, patient is at high risk for major bleeding) Plan: ? Stopped patient's home digoxin ? Amiodarone drip, called pharmacy extend to end 03/13 - Per cardiology, PO diltiazem 30 mg QID, however held iso SBO and c/f bowel perforation - Plan for IV metoprolol 2.5 mg IVP if HR >130 and if SBP >120 and HR >60 ? Consulted cardiology, Dr. Colon, recs appreciated #Upper and lower GI bleed 2/2 #Angiodysplasias of GI tract #Symptomatic anemia (resolved) Patient was brought to ED due to generalized fatigue and difficulty waking on the morning of 03/05 with melena started 2-3 weeks ago. Admission H&H 12/01/16.2 s/p 2 prbc on 03/05 and 2 more pRBC on 03/07 with stabilization of H&H. Initial EGD showed angiodysplastic bleeding in gastric body and gastric fundus, requiring cautery and clipping. Repeat EGD 03/07, which showed no additional bleeding Colonoscopy planned for 03/08, delayed to 03/09, which showed moderate diverticulosis in sigmoid and descending colon, and multiple bleeding colonic angiodysplastic lesions that were treated with argon plasma coagulation Ddx for multiple angiodysplasias possibly secondary to subtherapeutic anticoagulation on Xarelto 15 mg instead of Xarelto 20 mg causing multiple emboli with possible embolisms to GI tract Plan: ? GI consulted, recs appreciated ? Echocardiogram pending to identify possible cardiac vulvular stenosis ? Patient to follow-up with Dr. Bauer, GI, and referral to perform capsule endoscopy #VANNA on CKD likely prerenal In the ED, the patient had a BUN of 85, creatinine of 2.1, and GFR of 31. On chart review, patient has CKDIII with baseline Cr 1.4-1.7. VANNA likely 2/2 acute loss of blood due to GI bleed, resulting in decreased blood flow to the kidneys, which resolved 03/09 03/12 Cr increased to 1.8, likely 2/2 to suspected SBO. Plan: - SBO treatment plan as above ? Renally dose medications ? Avoid nephrotoxic medications ? Will hold off on IV fluid hydration given mild heart failure congestion on repeat CXR #?CHF Patient does not have a documented history of CHF, but patient takes furosemide 20 mg p.o. daily at home. Echocardiogram done on 04/30/2018 showed EF of 50% with moderate mitral regurgitation. Plan: ? Will hold patient's home furosemide given suspected SBO - F/u echo ? Strict ins and outs and daily weights #Primary Hypertension Patient has a history of hypertension. Patient takes benazepril 40 mg daily and clonidine 0.2 mg 3 times daily at home. Plan: ? Will hold patient's home antihypertensives of benazepril, clonidine, furosemide ? Will monitor blood pressure closely Hospital management: Lines: Peripheral IV, NG tube Diet: NPO Bowel: None GI prophylaxis: IV pantoprazole 40 mg BID DVT prophylaxis: hold xarelto iso ischemic stroke Disposition: tele for c/f perforated bowel and SBO CODE STATUS: Full code Plan of care discussed with attending Dr. Winters, and PGY-2 Dr. Kelly. Esther Trujillo, DO PGY-1 Internal Medicine Attending Provider Attestation/Addendum I Nilson Winters MD reviewed the note and agree with the resident's assessment & plan with exceptions/additions as below. I have personally reviewed labs, imaging, home meds/prior records, examined the patient, formulated and discussed management plan with the IM team. An 79-year-old male with Hx of AF, HTN, CKD, RA hospitalized for severe symptomatic anemia requiring transfusions and noted to have gastrointestinal angiodysplasia s/p EGD and colonoscopy with argon laser ablation. Hospital course complicated by recurrent fevers, abdominal distention and altered mental status leading to further investigation revealing multiple acute embolic strokes, aspiration pneumonia/HCAP, ischemic colitis with small bowel obstruction and pneumoperitoneum on CXR concerning for bowel perforation. Patient is requiring supplemental oxygen with mild respiratory distress concerning for worsening aspiration pneumonia. Keep n.p.o., obtain ABG, continue Zosyn and vancomycin empirically, repeat lactate leve. Patient also noted to be in AF with RVR, bedside echocardiogram revealed collapsing IVC, hyperdynamic LV without any obvious appearing LV thrombus. Administered 1000 mL NS bolus, started on maintenance IV fluid resuscitation, continue current dose of amiodarone and diltiazem, would not angelina after RVR as long as hemodynamically stable as AF RVR is likely triggered due to sepsis and other comorbidities. Will obtain a twelve-lead EKG and formal echocardiogram for further evaluation. Discontinue/hold Xarelto in the setting of multiple strokes and potential abdominal exploration, follow-up with neurology regarding anticoagulation reinitiation once stable. Regarding distended bowel loops with air under diaphragm on CXR, obtain CT abdomen/pelvis, consult general surgery for evaluation of acute abdomen. Obtain crossmatch and coagulation panel including fibrinogen for evaluation of DIC, repeat chemistry panel and CBC with INR in 12 hours. Based on ABG, will re-evaluate for potential intubation with mechanical ventilation requirement. If patient becomes hypotensive, will stop diltiazem and will use phenylephrine as primary pressor. Extensively discussed with patient's family including his and son regarding active issues, current management, potential outcome including relatively poor prognosis in the setting of multiple acute issues and advancing age. Family understands patient's situation and appreciative of our efforts. Extensive multidisciplinary discussion was also held with gastroenterology and general surgery team at bedside.
[2025-03-12 13:06] LABS: INR 1.2 (0.9-1.3); Partial Thromboplastin Time 39.5 Seconds (22.0-36.0); Prothrombin Time 13.4 Seconds (9.0-12.2)
[2025-03-12 13:12] LABS: Fibrinogen > 860 mg/dL (175-375)
[2025-03-12 15:08] LABS: Cocci Serology, IgG Negative (Negative)
[2025-03-12 15:28] LABS: Base Excess 1 (-3-3); HCO3 25 mEq/L (20-26); Inspired O2, VO2 Liters 4 L/min; Inspired Oxygen, FIO2 21 %; O2 Saturation 99 % (91-98); PCO2 36 mmHg (32.0-48.0); PO2 88 mmHg (83-108); pH, Arterial 7.46 (7.35-7.45)
[2025-03-12 15:30] LABS: Allen Test Performed/OK; Puncture Site Right Brachial
--- NOTE | 2025-03-12 16:13 | PD.IMPROG ---
Documentation for date of: 03/12/25 Subjective Subjective Interval history: Patient evaluated at the request of the internal medicine team WBC count 8.4 hemoglobin hematocrit 7.8 and 24.2 Pro time INR 1.2 Fibrinogen greater than 860 CO2 23.7 BUN/creatinine 28 and 1.8 Chest x-ray shows bibasilar pneumonia as well as free air under the right hemidiaphragm CT scan of the abdomen pelvis showed free air on the right side of the colon Patient did have a colonoscopy 4 to 5 days ago with APC laser of the arteriovenous malformations of the right colon Very unusual to have a perforation for 5 days later status post APC laser Patient has done very well for the last 3 days in terms of no abdominal symptoms Case discussed in detail with the internal medicine attending PGY 2 Dr[address] Kelly as well as the certified surgical assistant Dr. Smith Patient has already been on vancomycin and Zosyn for the last 4 to 5 days for pneumonia So the antibiotics have not been helpful My recommendation would be exploration via ex lap Exam Vital Signs Temp Pulse Resp BP Pulse Ox O2 Del Method O2 Flow Rate 97.6 F 114 H 24 H 125/100 H 96 Oxy Mask 4 03/12/25 12:00 03/12/25 12:00 03/12/25 12:00 03/12/25 12:00 03/12/25 12:00 03/12/25 12:00 03/12/25 08:00 Objective Labs 03/12/25 04:35 03/12/25 04:35 Labs: Laboratory Results - last 24 hr 03/10/25 03/12/25 03/12/25 11:25 04:35 11:35 WBC 8.4 RBC 2.55 L Hgb 7.8 L Hct 24.2 L MCV 95 MCH 30.6 MCHC 32.2 RDW Std Deviation 76.5 H Plt Count 188 D Neut % (Auto) 90 H Lymph % (Auto) 4 L [place] % (Auto) 5 Eos % (Auto) 0 Baso % (Auto) 0 Neut # (Auto) 7.5 Lymph # (Auto) 0.3 L [place] # (Auto) 0.4 Eos # (Auto) 0.0 Baso # (Auto) 0.0 Immature Gran # (Auto) 0.07 H Absolute Nucleated RBC 0.00 Immature Gran % 1 H Nucleated RBC % 0 PT 13.4 H INR 1.2 APTT 39.5 H D Fibrinogen > 860 H* Puncture Site ABG pH ABG pCO2 ABG pO2 ABG HCO3 ABG O2 Saturation ABG Base Excess Oxygen Liter Flow FiO2 Sodium 141 Potassium 3.7 D Chloride 104 Carbon Dioxide 23.7 Anion Gap 13 BUN 28 H Creatinine 1.8 H Estim Creat Clear Calc 40.6 L eGFR 38 L BUN/Creatinine Ratio 16 Glucose 117 H Calculated Osmolality 287 Calcium 8.5 Corrected Calcium 9.2 Phosphorus 4.0 Magnesium 2.3 Total Bilirubin 0.9 AST 67 H ALT 29 Alkaline Phosphatase 47 D Total Protein 5.4 L Albumin 3.1 L Globulin 2.3 Albumin/Globulin Ratio 1.3 Coccidioides IgG Ab Negative 03/12/25 15:20 WBC RBC Hgb Hct MCV MCH MCHC RDW Std Deviation Plt Count Neut % (Auto) Lymph % (Auto) [place] % (Auto) Eos % (Auto) Baso % (Auto) Neut # (Auto) Lymph # (Auto) [place] # (Auto) Eos # (Auto) Baso # (Auto) Immature Gran # (Auto) Absolute Nucleated RBC Immature Gran % Nucleated RBC % PT INR APTT Fibrinogen Puncture Site Right Brachial ABG pH 7.46 H ABG pCO2 36 ABG pO2 88 D ABG HCO3 25 ABG O2 Saturation 99 H ABG Base Excess 1 Oxygen Liter Flow 4 FiO2 21 Sodium Potassium Chloride Carbon Dioxide Anion Gap BUN Creatinine Estim Creat Clear Calc eGFR BUN/Creatinine Ratio Glucose Calculated Osmolality Calcium Corrected Calcium Phosphorus Magnesium Total Bilirubin AST ALT Alkaline Phosphatase Total Protein Albumin Globulin Albumin/Globulin Ratio Coccidioides IgG Ab Impressions Impression: Free air under the right hemidiaphragm as well as pneumoperitoneum Abnormal CT scan of the abdomen and pelvis showing small bowel obstruction/ileus with free air around the right colon and the small bowel Suggest exploration ABG Interpretation ABG results: 03/05/25 03/09/25 03/12/25 13:17 23:55 15:20 ABG pH 7.45 7.46 H ABG pCO2 27 L 36 ABG pO2 122 H 88 D ABG HCO3 18 L 25 ABG O2 Saturation 100 H 99 H ABG Base Excess -5 L 1 VBG pH 7.39 VBG pCO2 36 VBG pO2 31 VBG Base Excess -3 Assessment & Plan A&P Narrative pt HR is in the 120-130 range contine amiodarone drip xarelto add cardizem echo to be done Time Spent With Patient Time: Total time spent is greater than 50% in coordination of care (as documented) at patient's floor/unit and/or counseling patient:
[2025-03-12] MEDS: RINGERS LACTATED 500 ML 500 ML 999 ML IV (16:18)
[2025-03-12] MEDS: RINGERS LACTATED 1000 ML 1,000 ML 125 ML IV ×2 (16:23→23:09)
[2025-03-12 16:28] LABS: Lactate (Lactic Acid) 1.8 mMol/L (0.4-2.0)
[2025-03-12 16:30] LABS: Base Excess, Venous 2 (-3-3); O2 Saturation, Venous 99 % (96-97); PCO2, Venous 34 mmHg (36-56); PO2, Venous 94 mmHg (15-58); pH, Venous 7.49 (7.33-7.66)
--- NOTE | 2025-03-12 17:54 | ESCONSULT_ITS ---
HPI Consult details Consult date: 03/12/25 Reason for consultation narrative: The patient was seen in consultation for the second time today because of the free air under the diaphragm. 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 He denies any history of pain. He has not had any such pain in the past and he has stopped his bleeding. However his abdomen was distended and residents asked me to see if we can decompress the patient was seen by me earlier for abdominal distention and the resident was asking whether we could introduce an NG tube. I said yes at that time abdominal x-ray showed no abnormality other than dilated cecum. After decompression CT scan was obtained and showed free air around the cecum and under the diaphragm. Therefo re second consultation was obtained for further management. Patient is possibly history revealed that he had extensive disease with a history of hypertension anemia GI bleed atrial fibrillation congestive heart failure CVA. Patient also has been admitted with altered mental status. When he came in he was admitted for weakness 1 week ago subsequently he was found to have marked anemia for which she was transfused 4 units of blood. Evaluation with the clean rice grader and reel tender showed that patient had some angiodysplasia in the ascending colon and in the stomach which was treated with coagulation. Patient seems to have had done reasonably well but recently started having pain and tenderness and abdominal distention. Because of the distention surgical consultation was obtained I and I saw him. We decided to put an NG tube. Meanwhile he is was found to have tenderness in the right lower quadrant and a CT scan showed possible free air. Meds Home Medications and Allergies Home Medications ?Medication ?Instructions ?Recorded ?Confirmed ?Type benazepril 40 mg tablet 40 mg PO QDAY 04/30/1803/05 History clonidine HCl 0.2 mg tablet 0.2 mg PO TID 04/30/1804/21 History rivaroxaban 15 mg tablet (Xarelto) 15 mg PO QDAY 04/3003/05/25 History digoxin 125 mcg (0.125 mg) tablet 0.125 mg PO QDAY 04/2103/05/25 History furosemide 20 mg tablet 20 mg PO QDAY 03/05/2503/05 History Allergies Allergy/AdvReac Type Severity Reaction Status Date / Time No Known Allergies Allergy Verified 02/04/25 10:02 Exam Vital Signs Temp Pulse Resp BP Pulse Ox O2 Del Method O2 Flow Rate 97.0 F 104 H 24 H 127/88 H 96 Oxy Mask 4 03/12/25 16:00 03/12/25 16:00 03/12/25 16:00 03/12/25 16:00 03/12/25 12:00 03/12/25 12:00 03/12/25 08:00 Narrative Exam Physical examination revealed 79-year-old man who appeared to be in his stated age he is about 6 feet tall weighing 227 pounds BMI of 30.1 his vital signs revealed temperature of 97 but pulse was 104. His blood pressure was normal Constitutional Constitutional: moderate distress Routine Abdominal Exam Comments: Abdomen showed the patient had definite distention and some tenderness over the right side as well as in the right lower quadrant. This tenderness seems to be more on the right side than on the left side. There is no generalized peritonitis but there are localized peritoneal signs were seen. Bowel sounds are hypoactive. Routine Rectal Exam Comments: Deferred because of recent colonoscopy Routine Exam Comments: Negative Routine Extremities Exam Comments: Within normal limits Results Results: Laboratory Laboratory Narrative: Patient's laboratory workup showed normal WBC but his hemoglobin was around 7.8 probably due to the recent GI bleed. This is after 4 units of transfusion. Patient BUN/creatinine is slightly elevated to 38 and 1.8. Results: Imaging Imaging narrative: X-rays of the abdomen showed a dilated stomach as well as small bowel and dilated cecum. This gives appearance of obstruction but it may be due to ileus. CT scan was performed this afternoon which revealed pneumoperitoneum and some possible ischemic bowel changes in the right lower quad and in the small bowel Assessment & Plan Additional Assessment Additional comments: Impression: Possible perforation of the cecum and the ascending colon Anemia GI bleed Atrial fibrillation CHF CVA Hypertension Altered mental status Plan Plan: Patient will require exploration because there is a free air. It may be related to the therapeutic procedure performed on . Even though it is 4 days it is very unlikely to have a new problem after having had a normal colonoscopy except AVM. But because of localized irritation patient will require exploration. He has been on antibiotics for 4 days for another problem in the lung but in spite of that he has not improved on the ileus suggest that the patient has considerable inflammatory focus in the abdomen. We shall proceed with 2 units of type and cross during the use from surgery and exploring. I told the patient that patient may require a right hemicolectomy or seek ectomy if it is a localized perforation. It is very unlikely that he will require a small bowel resection. Enterocolonic anastomosis may have been req uired. Because of the high risk of bleeding with Xarelto being taken 36 hours ago patient may require transfusion. Patient's postoperative complications were explained to the patient including anastomotic leak requiring a temporary colostomy sepsis and even mortality. He may require control of atrial fibrillation in the intensive care unit postoperatively. Patient also may be on the respirator for a while depending on the degree of surgery and he is ability to recover. He is fraility is another risk factor for his morbidity and mortality. All this was explained to the son and the and we will decided to proceed with surgery toneduin.
--- NOTE | 2025-03-12 20:32 | ESOP_ITS ---
Date of Procedure 03/12/25 Pre Op Diagnosis Perforation of viscus Post Op Diagnosis Same perforation of the cecum Procedure Exploratory laparotomy and resection of the cecum and the ascending colon and ilio ascending colostomy Findings Patient was found to have perforated cecum with fecal contamination causing localized peritonitis. Patient was therefore scheduled for explored laparotomy. Procedure Description Patient has been receiving preop antibiotics consisting of Zosyn and vancomycin. He was taken to the operating room and endotracheal anesthesia was given. Justin catheter was inserted. The abdomen was prepped with ChloraPrep solution and draped in a sterile manner. Timeout is performed. Then I made a lateral incision starting from the umbilicus towards the flank because I noticed on the CT scan that the patient had perforation around the cecum. Moreover it was also obvious that patient has had a coagulation of the AVM at the cecum on the ascending colon and therefore suspected perforation in that area. Abdominal cavity was entered after incising through the rectus muscle and the oblique muscles of the abdominal wall. Patient was found to have a cloudy fluid which is foul-smelling. This was aspirated and cecum was delivered out which was swollen and showed serosal tear. Further exploration revealed that there was a longitudinal tear in the cecum with fecal contamination. This was clamped on both sides and I decided to do right colon resection. I clamped the ileum close to ileocecal junction with a SANJUANITA 55 and resected it. Then the ascending colon was isolated and stapled with the TA 60 . Then the entire cecum including the appendix and the portion of the ascending colon were removed. Basically it is a form of right hemicolectomy except the hepatic flexure was not removed. Extensive irrigation was carried out. Small bowel was found to be very dilated and obstructed. Therefore this was milked down and it was decompressed by aspirating small bowel contents. Then the end of the ileum was anastomosed to the ascending colon with a handsewn manner using 3-0 silk for the posterior layer and 3-0 chromic for the inner layers. Then I placed a Lamberts sutures with 3-0 silk. The rent in the mesentery was closed with 3-0 silk. Wound was then extensively irrigated and the gloves were changed. Then after checking for the instruments the wound was closed in 2 layers using 0 PDS for the running manner for the posterior rectus sheath and anterior rectus sheath. Wound was irrigated after each layer. Then injected large amount of local anesthesia with half percent Marcaine over the incision which is about 8 inches in length. The incision was closed with niya except the midportion which was left open for preventing any infection and to drain if any infection develops because of the contamination over the incision. Patient tolerated the procedure well. The patient received 1 unit of packed cells. Patient tolerated the procedure well and returned to the intensive care unit in stable condition Anesthesia GETA Pathology / specimen Other (Resected cecum and portion of the ascending colon with ileocecal junction and appendix) IVF Infused 1,300 Estimated Blood Loss 300 Condition Stable Disposition PACU Surgeon Kwesi Acharya MD Surgical Staff Operation Date: 03/12/25 18:15 Case Staff Anesthesiologist: Davi Waldrop RNpulmonology technician: Ziyad Ross
--- NOTE | 2025-03-12 20:58 | SUR.PHASEI ---
received report and patient from MARCO Gamboa and Dr. Waldrop. Pt slightly fidgity. vss, dressing to lower abd with mod serosanguinous drainage to dressing.
--- NOTE | 2025-03-12 20:58 | SUR.PHASEI ---
received report and pt from MARCO Gamboa and Dr. Waldrop. Pt awake but not alert. Pt is fidigity at this time. VSS stable. dressing to lower abd, moderate serosangiunous drainage noted to dressing. dressing reinforced with fluffs and medipore tape.
--- NOTE | 2025-03-12 21:30 | SUR.PHASEI ---
vss, no further drainage noted to dressing. pt resting but arousable to voice. report given MARCO Maria.
--- NOTE | 2025-03-12 22:22 | PC.RT ---
@[id number] PATIENT IN PROCEDURE
--- NOTE | 2025-03-12 22:33 | ESCONSULT_ITS ---
<Statement entered by John Kim MD - 03/14/25 10:06> I have discussed and was present for the essential components of the history, physical examination, diagnosis, and treatment plan with the resident. I agree with the patient's care as documented by the resident and amended herein by me. John Kim MD FACP. HPI Data of Consult Requesting Physician: Nathan Ross MD Admitting Provider: Nathan Ross MD Attending Provider: Nathan Ross MD Primary Care Provider: Carrie Barakat MD Consult Narrative History of present illness: The patient is an 79-year-old male with significant past medical history of A- fib on Xarelto, polymyalgia rheumatica on adalimumab, hypertension, possible CHF, hyperlipidemia, presented to ED on 03/05/2025 with chief complaint of generalized weakness, inability to walk was found to have multiple embolic type acute infract on MRI done on 03/11/2025. EGD done on 03/06/2025 revealed recently bleeding single angiodysplastic lesion in the stomach, clip was placed. Colonoscopy done on 03/09/2025 revealed multiple bleeding colonic angioplastic lesion, treated with argon plasma coagulation. Today, patient was seen by Dr. Smith, for free air under the diaphragm. The patient was tried NG tube decompression, but CT after that revealed free air around the cecum and under the diaphragm. The patient was taken to the OR for exploratory laparotomy, and was found to have serosal tear on cecum that was repaired. The patient had so far undergone 2 unit PRBC transfusion. History was obtained from chart review, as the patient was altered during my evaluation. The patient was upgraded to ICU for further observation and management. During my evaluation, patient's vitals were blood pressure 146/80, pulse 114, RR 20, saturating 97% on 8 L OxyMask. Labs from this morning revealed hemoglobin 7.8, platelet 188, white count 8.4, chemistry panel significant for BUN 28, creatinine 1.8, GFR 38, lactic acid 1.8, AST/ALT 67/29, albumin 3.1, imaging findings as above. 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 Colon, clonidine 0.2 Mg 3 times daily, Humira 40 Mg 1. Every other week, vitamin C, vitamin D3, magnesium citrate 250 Mg daily at night Allergies: No known allergies cc:: cc: Nathan Ross MD Review of Systems Review of Systems ROS Unobtainable: unobtainable due to mental status Exam Vital Signs Temp Pulse Resp BP Pulse Ox O2 Del Method O2 Flow Rate 98.0 F 105 H 20 154/90 H 97 Oxy Mask 8 03/12/25 21:30 03/12/25 21:30 03/12/25 21:30 03/12/25 21:30 03/12/25 21:30 03/12/25 12:00 03/12/25 21:30 Narrative Exam General: No acute distress, Alert and Oriented x1, to himself only, confused HEENT: Moist mucous membranes, oropharynx clear Neck: Supple, No masses, No JVD CVS: Irregularly irregular heart rate, tachycardic Lungs: Mild bilateral wheezing, no crackles appreciated Abd: Soft, right lower quadrant tenderness, +BS, RLQ surgical site under clean dressing Ext: No edema, warm and well perfused Skin: Erythematous left upper arm Psych: Confused Results Labs 03/13/25 05:21 03/12/25 04:35 Labs: Short CBC 03/12/25 Range/Units 04:35 WBC 8.4 (3.8-10.6) Thou/mm3 Hgb 7.8 L (13.5-16.0) g/dL Hct 24.2 L (41.0-53.0) % Plt Count 188 D (140-440) Thou/mm3 BMP 03/12/25 04:35 Sodium 141 Potassium 3.7 D Chloride 104 Carbon Dioxide 23.7 BUN 28 H Creatinine 1.8 H Glucose 117 H Calcium 8.5 Liver Function 03/12/25 Range/Units 04:35 Total Bilirubin 0.9 (0.3-1.2) mg/dL AST 67 H (0-34) U/L ALT 29 (10-49) U/L Alkaline Phosphatase 47 D (46-116) U/L Albumin 3.1 L (3.4-4.8) gm/dL ABG Interpretation ABG results: 03/05/25 03/09/25 03/12/25 13:17 23:55 15:20 ABG pH 7.45 7.46 H ABG pCO2 27 L 36 ABG pO2 122 H 88 D ABG HCO3 18 L 25 ABG O2 Saturation 100 H 99 H ABG Base Excess -5 L 1 VBG pH 7.39 VBG pCO2 36 VBG pO2 31 VBG Base Excess -3 03/12/25 15:53 ABG pH ABG pCO2 ABG pO2 ABG HCO3 ABG O2 Saturation ABG Base Excess VBG pH 7.49 VBG pCO2 34 L VBG pO2 94 H VBG Base Excess 2 Quality Measures Quality Measures none Advance care planning discussed with:: other (Family members by day floor team) Medications Home Medications and Allergies Home Medications ?Medication ?Instructions ?Recorded ?Confirmed ?Type benazepril 40 mg tablet 40 mg PO QDAY 04/30/1803/05 History clonidine HCl 0.2 mg tablet 0.2 mg PO TID 04/30/1804/21 History rivaroxaban 15 mg tablet (Xarelto) 15 mg PO QDAY 04/3003/05/25 History digoxin 125 mcg (0.125 mg) tablet 0.125 mg PO QDAY 04/2103/05/25 History furosemide 20 mg tablet 20 mg PO QDAY 03/05/2503/05 History Allergies Allergy/AdvReac Type Severity Reaction Status Date / Time No Known Allergies Allergy Verified 02/04/25 10:02 Visit Medications Acetaminophen (Acetaminophen 325 Mg Tablet) 650 mg PO Q6H PRN PRN Reason: Fever >101.5 or pain (1-3) Stop: 04/04/25 15:27 Last Admin: 03/11/25 01:34 Dose: 650 mg Vancomycin HCl (Vancomycin/Water 1gm Ivpb) 200 mls @ 120 mls/hr IV QDAY@1000 [facility]; Protocol Stop: 03/18/25 09:59 Last Admin: 03/12/25 11:07 Dose: 120 mls/hr Piperacillin/Tazobactam/Dextrose (Zosyn) 3.375 g in 50 mls @ 12.5 mls/hr IV Q8HR [facility] Stop: 03/17/25 10:32 Last Admin: 03/12/25 22:11 Dose: 12.5 mls/hr Amiodarone HCl/Dextrose (Nexterone Ivpb) 360 mg in 200 mls @ 16.667 mls/hr IV .Q12H [facility] Stop: 03/13/25 16:17 Lactated Ringer's (Lactated Ringers) 1,000 mls @ 125 mls/hr IV .Q8H [facility] Stop: 04/11/25 15:32 Last Admin: 03/12/25 16:23 Dose: 125 mls/hr Ipratropium Orting (Ipratropium Rt 0.5 Mg/ 2.5 Ml Nebu) 0.5 mg INH Q8HRRT [facility] Stop: 04/11/25 14:59 Last Admin: 03/12/25 15:00 Dose: Not Given Levalbuterol HCl (Levalbuterol Rt 1.25 Mg/0.5 Ml Nebu) 1.25 mg INH Q8HR [facility] Stop: 04/11/25 13:59 Last Admin: 03/12/25 22:21 Dose: Not Given Morphine Sulfate (Morphine Sulf Inj 10 Mg/Ml Vial) 5 mg IVP Q4HR PRN PRN Reason: PAIN SCALE 4-6 (Moderate Stop: 03/17/25 22:23 Ondansetron HCl (Ondansetron Inj 2 Mg/Ml Inj 2 Ml) 4 mg IVP Q4HR PRN PRN Reason: NAUSEA OR VOMITING Stop: 04/04/25 13:05 Pantoprazole Sodium (Pantoprazole Inj 40 Mg Vial) 40 mg IVP BID [facility] Stop: 04/11/25 12:44 Last Admin: 03/12/25 22:12 Dose: 40 mg Pharmacy Consult (Vancomycin Pharmacy To Dose 1 Each Each) 1 each IV QDAY PRN PRN Reason: PROTOCOL Stop: 04/09/25 00:04 Sodium Chloride (Sodium Chloride Rt Aleena 0.9% 3 Ml Nebu) 3 ml INH PRN PRN PRN Reason: SOLN Stop: 04/11/25 10:44 Discontinued Medications Al Hydrox/Mg Hydrox/Simethicone (Mg Hyd/Al Hyd/Mei (Maalox Reg) Susp 30 Ml Udc) 15 ml PO Q4HR [facility] Stop: 04/05/25 17:59 Last Admin: 03/12/25 16:02 Dose: Not Given Atorvastatin Calcium (Atorvastatin Calcium 20 Mg Tablet) 40 mg PO HS [facility] Stop: 04/04/25 20:59 Last Admin: 03/11/25 21:03 Dose: 40 mg Benzocaine (Benzocaine 20% (Hurricaine) [place] 1 Dose) 0 dose TOP X1 ONE Stop: 03/06/25 15:46 Benzocaine (Benzocaine 20% (Hurricaine) [place] 1 Dose) 0 dose TOP X1 ONE Stop: 03/07/25 22:36 Bisacodyl (Bisacodyl 10 Mg Supp) 10 mg SD X1 PRN PRN Reason: Gas pain Stop: 03/09/25 21:46 Cyanocobalamin (Cyanocobalamin Inj 1,000 Mcg/Ml Vial) 1,000 mcg IM X1 ONE Stop: 03/09/25 16:39 Last Admin: 03/09/25 17:13 Dose: 1,000 mcg Digoxin (Digoxin 0.125 Mg Tablet) 0.125 mg PO QDAY [facility] Stop: 04/04/25 15:44 Last Admin: 03/05/25 16:26 Dose: Not Given Digoxin (Digoxin 0.125 Mg Tablet) 0.125 mg PO X1 ONE Stop: 03/08/25 07:59 Last Admin: 03/08/25 09:32 Dose: 0.125 mg Digoxin (Digoxin 0.125 Mg Tablet) 0.125 mg PO MoWeFr@0900 [facility] Stop: 04/08/25 08:59 Last Admin: 03/11/25 08:57 Dose: 0.125 mg Diltiazem HCl (Diltiazem 30 Mg Tablet) 30 mg PO QID [facility] Stop: 04/10/25 16:59 Last Admin: 03/12/25 16:02 Dose: Not Given Diphenhydramine HCl (Diphenhydramine Inj 50 Mg/Ml Vial) 25 mg IVP [id number] PRN PRN Reason: MODERATE SEDATION Stop: 03/06/25 17:45 Diphenhydramine HCl (Diphenhydramine Inj 50 Mg/Ml Vial) 25 mg IVP [id number] PRN PRN Reason: MODERATE SEDATION Fentanyl Citrate (Fentanyl Cit Inj 50 Mcg/Ml Amp 2ml) 50 mcg IVP Q2M PRN PRN Reason: MODERATE SEDATION Stop: 03/06/25 17:45 Fentanyl Citrate (Fentanyl Cit Inj 50 Mcg/Ml Amp 2ml) 50 mcg IVP Q2M PRN PRN Reason: MODERATE SEDATION Fentanyl Citrate (Fentanyl Cit Inj 50 Mcg/Ml Amp 2ml) 50 mcg IVP Q2M PRN PRN Reason: MODERATE SEDATION Stop: 03/09/25 21:45 Hydroxyzine HCl (Hydroxyzine Hcl 25 Mg Tablet) 50 mg PO X1 PRN PRN Reason: ANXIETY Stop: 04/10/25 15:09 Last Admin: 03/11/25 17:00 Dose: 50 mg Sodium Chloride (Ns) 1,000 mls @ 100 mls/hr IV Q10H [facility] Stop: 04/04/25 13:14 Last Infusion: 03/07/25 23:46 Dose: 100 mls/hr Pantoprazole Sodium (Protonix/Ns 80mg Iv Premix) 80 mg in 100 mls @ 10 mls/hr IV Q10H [facility] Stop: 03/08/25 13:35 Last Admin: 03/08/25 16:29 Dose: 10 mls/hr Magnesium Sulfate (Magnesium Sulfate Ivpb) 4 gm in 50 mls @ 12.5 mls/hr IV X1 ONE Stop: 03/08/25 00:59 Last Infusion: 03/07/25 23:46 Dose: 12.5 mls/hr Sodium Chloride (Ns) 500 mls @ 20 mls/hr IV .Q24H ONE Stop: 03/08/25 22:31 Sodium Chloride (Ns) 500 mls @ 20 mls/hr IV .Q24H ONE Stop: 03/08/25 22:31 Last Infusion: 03/08/25 00:00 Dose: 0 mls/hr Magnesium Sulfate (Magnesium Sulfate Ivpb) 4 gm in 50 mls @ 12.5 mls/hr IV X1 ONE Stop: 03/09/25 11:43 Last Admin: 03/09/25 07:51 Dose: 12.5 mls/hr Acetaminophen (Ofirmev Inj) 1,000 mg in 100 mls @ 250 mls/hr IV X1 ONE Stop: 03/09/25 23:48 Last Admin: 03/10/25 00:19 Dose: 250 mls/hr Lactated Ringer's (Lactated Ringers) 2,526 mls @ 2,526 mls/hr 30 ml/kg infuse over 60 min (2526 ml) IV .Q1H ONE Stop: 03/10/25 00:25 Last Admin: 03/10/25 00:17 Dose: 2,526 mls/hr Piperacillin/Tazobactam/Dextrose (Zosyn) 3.375 gm in 50 mls @ 100 mls/hr IV X1 ONE Stop: 03/10/25 00:30 Last Admin: 03/10/25 00:44 Dose: 100 mls/hr Vancomycin/Sodium Chloride (Vancomycin/Ns 1 Gm Ivpb) 200 mls @ 120 mls/hr IV X1 ONE Stop: 03/10/25 02:24 Vancomycin HCl 1,000 mg/ (Sodium Chloride) 250 mls @ 150 mls/hr IV X1 ONE Stop: 03/10/25 03:09 Last Admin: 03/10/25 01:17 Dose: 150 mls/hr Vancomycin/Sodium Chloride (Vancomycin/Ns 750 Mg Ivpb) 750 mg in 150 mls @ 120 mls/hr IV X1 ONE Stop: 03/10/25 09:14 Last Admin: 03/10/25 08:53 Dose: 120 mls/hr Lactated Ringer's (Lactated Ringers) 1,000 mls @ 125 mls/hr IV .Q8H [facility] Stop: 04/09/25 10:30 Last Admin: 03/11/25 04:11 Dose: 125 mls/hr Acetaminophen (Ofirmev Inj) 1,000 mg in 100 mls @ 250 mls/hr IV X1 ONE Stop: 03/10/25 12:21 Last Admin: 03/10/25 12:11 Dose: 250 mls/hr Amiodarone HCl/Dextrose (Nexterone Ivpb) 150 mg in 100 mls @ 600 mls/hr IV .Q10M ONE Stop: 03/11/25 10:18 Last Admin: 03/11/25 11:05 Dose: 600 mls/hr Amiodarone HCl/Dextrose (Nexterone Ivpb) 360 mg in 200 mls @ 33.333 mls/hr IV .Q6H ONE Stop: 03/11/25 16:18 Last Admin: 03/11/25 11:28 Dose: 33.333 mls/hr Amiodarone HCl/Dextrose (Nexterone Ivpb) 360 mg in 200 mls @ 16.667 mls/hr IV .Q12H [facility] Stop: 03/12/25 16:18 Last Admin: 03/12/25 09:11 Dose: 16.667 mls/hr Lactated Ringer's (Lactated Ringers) 500 mls @ 999 mls/hr IV .Q31M ONE Stop: 03/12/25 16:04 Last Admin: 03/12/25 16:24 Dose: Not Given Lactated Ringer's (Lactated Ringers) 500 mls @ 999 mls/hr IV .Q31M ONE Stop: 03/12/25 17:00 Last Admin: 03/12/25 16:18 Dose: 999 mls/hr Ipratropium [place] (Ipratropium Rt 0.5 Mg/ 2.5 Ml Nebu) 0.5 mg INH Q8HRRT PRN PRN Reason: Wheezing/SOB Stop: 04/11/25 14:59 Levalbuterol HCl (Levalbuterol Rt 1.25 Mg/0.5 Ml Nebu) 1.25 mg INH Q8HR PRN PRN Reason: WHEEZING Stop: 04/11/25 10:44 Melatonin (Melatonin 3 Mg Tablet) 3 mg PO HS PRN PRN Reason: Insomnia Stop: 04/10/25 20:59 Metoprolol Tartrate (Metoprolol Tartrate Inj 1 Mg/Ml Amp 5 Ml) 2.5 mg IVP X1 ONE Stop: 03/10/25 04:46 Last Admin: 03/10/25 05:18 Dose: 2.5 mg Midazolam HCl (Midazolam Inj 1 Mg/Ml Vial 2 Ml) 2 mg IVP Q2M PRN PRN Reason: Moderate Sedation Stop: 03/06/25 17:45 Midazolam HCl (Midazolam Inj 1 Mg/Ml Vial 2 Ml) 2 mg IVP Q2M PRN PRN Reason: Moderate Sedation Midazolam HCl (Midazolam Inj 1 Mg/Ml Vial 2 Ml) 2 mg IVP Q2M PRN PRN Reason: Moderate Sedation Stop: 03/09/25 21:45 Non-Formulary Medication (Rivaroxaban [Xarelto]) 15 mg PO QDAY [facility] Stop: 04/09/25 08:59 Pantoprazole Sodium (Pantoprazole Inj 40 Mg Vial) 40 mg IVP X1 ONE Stop: 03/05/25 14:37 Last Admin: 03/05/25 15:14 Dose: 40 mg Pantoprazole Sodium (Pantoprazole 40 Mg Tablet) 40 mg PO BID [facility] Stop: 04/10/25 08:59 Last Admin: 03/12/25 08:32 Dose: 40 mg Pharmacy Consult (Vancomycin Pharmacy To Dose 1 Each Each) 1 each IV QDAY [facility] Stop: 04/09/25 08:59 Phytonadione (Phytonadione Inj 10 Mg/Ml Amp) 10 mg SC X1 ONE Stop: 03/05/25 14:29 Last Admin: 03/05/25 15:41 Dose: Not Given Polyethylene Glycol/Electrolytes (Na Pedersen/Nahco3/Farhat/Peg (Golytely) 4,000 Ml Btl) 4,000 ml PO X1 ONE Stop: 03/07/25 22:55 Last Admin: 03/07/25 23:47 Dose: 4,000 ml Polyethylene Glycol/Electrolytes (Na Pedersen/Nahco3/Farhat/Peg (Golytely) 4,000 Ml Btl) 4,000 ml PO X1 ONE Stop: 03/08/25 18:46 Last Admin: 03/08/25 20:15 Dose: 4,000 ml Potassium Chloride (Potassium Chloride 20 Meq Tabcr) 20 meq PO X1 ONE Stop: 03/09/25 08:11 Last Admin: 03/09/25 09:03 Dose: 20 meq Potassium Chloride (Potassium Chloride 20 Meq Tabcr) 40 meq PO X1 ONE Stop: 03/10/25 04:09 Last Admin: 03/10/25 05:19 Dose: 40 meq Potassium Chloride (Potassium Chloride 20 Meq Tabcr) 40 meq PO X1 ONE Stop: 03/10/25 07:52 Last Admin: 03/10/25 08:53 Dose: 40 meq Potassium Phos/Sodium Phos (Naph,[facility] Mbdb 1 Packet (1.5 Gm)) 1 packet PO X1 ONE Stop: 03/10/25 07:32 Last Admin: 03/10/25 08:53 Dose: 1 packet Rivaroxaban 10 mg/ Rivaroxaban (5 mg) 15 mg PO QDAY [facility] Stop: 04/09/25 08:59 Last Admin: 03/11/25 08:57 Dose: 15 mg Sucralfate (Sucralfate Susp 1 Gm/10 Ml Udc) 1 gm PO ACHS [facility] Stop: 04/05/25 16:59 Last Admin: 03/12/25 16:02 Dose: Not Given Assessment & Plan Plan The patient is an 79-year-old male with significant past medical history of A- fib on Xarelto, polymyalgia rheumatica on adalimumab, hypertension, possible CHF, hyperlipidemia, presented to ED on 03/05/2025 with chief complaint of generalized weakness, inability to walk was found to have multiple embolic type acute infract on MRI done on 03/11/2025. EGD and colonoscopy revealed AVM, and was repaired by GI Dr. Bauer. Patient was seen by Dr. Smith, for free air under the diaphragm, CT after that revealed free air around the cecum and under the diaphragm. The patient was taken to the OR for exploratory laparotomy, and was found to have serosal tear on cecum that was repaired. The patient had so far undergone 2 unit PRBC transfusion. The patient was upgraded to ICU for further observation and management after exploratory laparotomy. Neuro: #Acute encephalopathy DDx: Likely multifactorial 2/2 recent multiple embolic stroke, post surgical sedation, hospital delirium, sepsis secondary to pneumonia MRI on 03/11/2025 revealed acute infarct in frontal, parietal, basal ganglia and posterior left temporal lobe. - Currently patient is n.p.o. s/p exploratory laparotomy 2/2 bowel perforation - Neurologist on board, appreciate recommendations - Continue to monitor closely - Holding antiplatelet in the setting of surgery CVS: #A-fib with RVR Patient has history of A-fib with RVR currently seeing Dr. Colon, was on home medication Xarelto and digoxin. - Likely rate not being controlled due to underlying sepsis leading to tachycardia - On amiodarone drip - Hold anticoagulation s/p open laparotomy #History of hypertension - Currently blood pressure is stable - Hold home antihypertensive Pulmonology: #Pneumonia, likely aspiration - On vancomycin and Zosyn 03/10- GI: #Acute bowel perforation s/p open laparotomy #Suspected ischemic right colon and small bowel CT abdomen/pelvis revealed suspicion for ischemic bowel including right colon and small bowel, distended small bowel loops consistent with obstruction, and pneumoperitoneum -The patient underwent open exploratory laparotomy, and was found to have tear on cecum, that was repaired by general surgeon Dr. Smith. #Acute GI bleed 2/2 #Gastric AVM, and #Colonic AVM - Was repaired during endoscopy and colonoscopy by GI doctor Juancarlos - GI Dr. Bauer on board Renal: #CKD BUN/creatinine 28-1.8, baseline creatinine 1.4-1.7 - Daily a.m. labs for renal panel - Avoid nephrotoxic drugs - Renally dose medications Endocrinology: - No active issue Hematology: #Acute hemorrhagic anemia Secondary to upper and lower GI bleed - Daily a.m. labs for CBC, and maintain hemoglobin greater than 7 at all the time MSK: - No active issue Psych: - No active issue, possible delirium Health maintenance: Dispo: Patient admitted to ICU for further management of acute bowel perforation s/p open exploratory laparotomy Diet: N.p.o. Lines: Peripheral lines DVT prophylaxis: SCDs CODE STATUS: Full code The patient's management plan was discussed with my attending physician MD Rom Westbrook MD, PGY3
[2025-03-13] VITALS (37 sets, daily range): BP systolic 99–191; BP diastolic 69–131; PULSE 82–117; RESP 15–96; TEMP 36–36.9; O2SAT 91–100
--- NOTE | 2025-03-13 05:29 | XR_ITS ---
Examination: AP chest single view Technique one AP portable supine chest single view Date and time: March 13, 2025 0537 hours, comparison March 12, 2025 INDICATIONS: Post orogastric tube placement FINDINGS: Orogastric tube in the stomach satisfactory position Mild enlargement cardiac contour. Prominent vascular congestion. Suspicious for superimposed pneumonia in both lungs IMPRESSION: Orogastric tube in the stomach satisfactory position.
[2025-03-13] MEDS: PIPER/TAZO 3.375 GM PREMIX 3.375 G/50 ML BAG IV ×3 (06:19→21:07)
[2025-03-13 06:34] LABS: Basophils # (Auto) 0.0 Thou/mm3 (0.0-0.2); Basophils % (Auto) 0 % (0-2.5); Eosinophils # (Auto) 0.0 Thou/mm3 (0.0-0.5); Eosinophils % (Auto) 0 % (0-10); Hematocrit 24.1 % (41.0-53.0); Immature Granulocytes Auto 0.03 Thou/mm3 (0.00-0.00); Lymphocytes # (Auto) 0.2 Thou/mm3 (1.0-4.8); Lymphocytes % (Auto) 3 % (10-50); Mean Corpuscular HGB Conc 32.8 g/dl (31.0-37.0); Mean Corpuscular Hemoglobin 30.7 pg (25.0-35.0); Mean Corpuscular Volume 94 fL (80-100); Monocytes # (Auto) 0.3 Thou/mm3 (0.0-0.8); Monocytes % (Auto) 5 % (0-12); Neutrophils # (Auto) 5.9 Thou/mm3 (1.8-7.7); Neutrophils % (Auto) 91 % (37-80); Nucleated Red Blood Cell # 0.00 Thou/mm3 (0.00-0.00); Nucleated Red Blood Cell % 0 /100 WBC (0); Platelet Count 176 Thou/mm3 (140-440); RDW Standard Deviation 73.3 fL (35.1-43.9); Red Blood Count 2.57 Miln/mm3 (4.50-5.90); White Blood Count 6.5 Thou/mm3 (3.8-10.6)
[2025-03-13 06:36] LABS: Hemoglobin 7.9 g/dL (13.5-16.0)
[2025-03-13] MEDS: IPRATROPIUM RT 0.5 MG/ 2.5 ML NEBU INH ×3 (06:55→22:22)
[2025-03-13] MEDS: LEVALBUTEROL RT 1.25 MG/0.5 ML NEBU INH ×3 (06:55→22:22)
[2025-03-13 07:36] LABS: Alanine Aminotransferase 61 U/L (10-49); Albumin, Serum 2.9 gm/dL (3.4-4.8); Albumin/Globulin Ratio 1.3 (1.2-2.2); Alkaline Phosphatase 68 U/L (46-116); Anion Gap 14 (7-16); Aspartate Amino Transferase 113 U/L (0-34); BUN/Creatinine Ratio 19 Ratio (12-20); Bilirubin,Total 0.8 mg/dL (0.3-1.2); Blood Urea Nitrogen 34 mg/dL (9-23); Calcium 8.0 mg/dL (8.3-10.6); Calcium (Corrected) 8.9 mg/dL (8.5-10.1); Carbon Dioxide 23.5 mMol/L (20.0-31.0); Chloride 106 mMol/L (98-107); Creatinine (Component) 1.8 mg/dL (0.6-1.3); Estimated Creatinine Clearance 40.6 mL/min (>60); Globulin 2.2 gm/dL (2.3-3.5); Glucose 167 mg/dL (74-106); Magnesium 2.2 mg/dL (1.6-2.6); Osmolality,Calculated 296 (275-295); Phosphorous 3.9 mg/dL (2.4-5.1); Potassium 3.9 mMol/L (3.4-5.1); Sodium 143 mMol/L (136-145); Total Protein 5.1 gm/dL (5.7-8.2); eGFR 38 See Note
[2025-03-13] MEDS: MORPHINE SULF INJ 10 MG/ML VIAL 2 MG IVP (07:42)
[2025-03-13] MEDS: LABETALOL INJ 5 MG/ML VIAL 20 ML 10 MG IVP (08:04)
[2025-03-13 09:55] LABS: Vancomycin,Trough 15.0 mcg/mL (5.0-10.0)
[2025-03-13] MEDS: VANCOMYCIN/WATER 1GM IVPB 200 ML IV (10:14)
[2025-03-13] MEDS: AMIODARONE 360 MG IVPB 360 MG/200 ML BAG 16.667 MG IV ×2 (10:56→23:08)
[2025-03-13] MEDS: POTASSIUM CHL 10 mEq IVPB 10 MEQ/100 ML BAG 100 MEQ IV ×2 (11:36→12:43)
--- NOTE | 2025-03-13 11:37 | PD.RESPRO ---
Documentation for date of: 03/13/25 Subjective Subjective Interval history: 79-year-old male with significant past medical history of A-fib on Xarelto, polymyalgia rheumatica on adalimumab, hypertension, possible CHF, hyperlipidemia, presented to ED on 03/05/2025 with chief complaint of generalized weakness, inability to walk was found to have multiple embolic type acute infract on MRI done on 03/11/2025. EGD done on 03/06/2025 revealed recently bleeding single angiodysplastic lesion in the stomach, clip was placed. Colonoscopy done on 03/09/2025 revealed multiple bleeding colonic angioplastic lesion, treated with argon plasma coagulation. Today, patient was seen by Dr. Smith, for free air under the diaphragm. The patient was tried NG tube decompression, but CT after that revealed free air around the cecum and under the diaphragm. The patient was taken to the OR for exploratory laparotomy, and was found to have serosal tear on cecum that was repaired. The patient had so far undergone 2 unit PRBC transfusion. History was obtained from chart review, as the patient was altered during my evaluation. The patient was upgraded to ICU for further observation and management. 03/13/2025: Patient was seen this morning, awake, interactive, saturating well on 2L nasal cannula. Patient reports moderate abdominal tenderness worse on palpation, given 2 mg morphine x1. Patient was oriented x3, however difficult to have a comprehensible conversation with. Patient's midline incision was examined this morning which showed a horizontal incision with niya at the ends and a central area of about 5 inches left open due to the peritonitis, packed over with kerlix. Surgicel dressings in place with minimal clotted blood, incision looks clean without bleeding, bruising, or purulence. However later that morning patient was noted to have increased bleeding from the right end of the open abdomen, Dr. Smith performed 1 suture stitch with resolution of bleeding with new packing and dressing change. Patient this morning also had hypertension to the 180s/110s therefore given labetalol 10 mg x1 and prn added due to NPO status. Hgb today was 7.9, transfusing [address] Smith. Patient is stable to be downgraded to Telemetry and sign out given for patient to return to Team B. Exam Vital Signs Temp Pulse Resp BP Pulse Ox O2 Del Method O2 Flow Rate 98.2 F 100 20 147/105 H 97 Nasal Cannula 2 03/13/25 08:00 03/13/25 11:00 03/13/25 11:00 03/13/25 11:00 03/13/25 11:00 03/13/25 11:03/13/25 11:00 Narrative Exam Physical Exam General: Awake and in no acute distress. Slightly confused, not conversational. HEENT: Normocephalic, atraumatic, mucous membranes moist. Heart: Regular rate and rhythm, normal S1 and S2, no murmurs. Lungs: Clear to auscultation with no wheezing or crackles. Abdomen: Soft, nondistended, moderate tenderness to palpation diffusely but R>L, hypoactive bowel sounds. ?No guarding or rebound tenderness, no peritoneal signs. Midline horizontal surgical incision with about 5 cm central opening, rest stapled in place. No oozing, bleeding, purulence, erythema, or ecchymosis. Surgicel and wound dressings in place. Neurologic: Alert and oriented x3, no gross neurological deficit, and patient able to move all 4 extremities. Extremities: No edema. Skin: No rash or ecchymoses. Objective Labs 03/14/25 07:58 03/14/25 07:58 Labs: Laboratory Results - last 24 hr 03/10/25 03/12/25 03/12/25 11:25 11:35 15:20 WBC RBC Hgb Hct MCV MCH MCHC RDW Std Deviation Plt Count Neut % (Auto) Lymph % (Auto) [place] % (Auto) Eos % (Auto) Baso % (Auto) Neut # (Auto) Lymph # (Auto) [place] # (Auto) Eos # (Auto) Baso # (Auto) Immature Gran # (Auto) Absolute Nucleated RBC Immature Gran % Nucleated RBC % PT 13.4 H INR 1.2 APTT 39.5 H D Fibrinogen > 860 H* Puncture Site Right Brachial ABG pH 7.46 H ABG pCO2 36 ABG pO2 88 D ABG HCO3 25 ABG O2 Saturation 99 H ABG Base Excess 1 VBG pH VBG pCO2 VBG pO2 VBG O2 Sat (Bro) VBG Base Excess Oxygen Liter Flow 4 FiO2 21 Sodium Potassium Chloride Carbon Dioxide Anion Gap BUN Creatinine Estim Creat Clear Calc eGFR BUN/Creatinine Ratio Glucose Calculated Osmolality Lactic Acid Calcium Corrected Calcium Phosphorus Magnesium Total Bilirubin AST ALT Alkaline Phosphatase Total Protein Albumin Globulin Albumin/Globulin Ratio Vancomycin Trough Coccidioides IgG Ab Negative Blood Type Antibody Screen Crossmatch Blood Bank Wristband ID 03/12/25 03/12/25 03/13/25 15:53 17:13 05:21 WBC 6.5 RBC 2.57 L Hgb 7.9 L Hct 24.1 L MCV 94 MCH 30.7 MCHC 32.8 RDW Std Deviation 73.3 H Plt Count 176 Neut % (Auto) 91 H Lymph % (Auto) 3 L [place] % (Auto) 5 Eos % (Auto) 0 Baso % (Auto) 0 Neut # (Auto) 5.9 Lymph # (Auto) 0.2 L [place] # (Auto) 0.3 Eos # (Auto) 0.0 Baso # (Auto) 0.0 Immature Gran # (Auto) 0.03 H Absolute Nucleated RBC 0.00 Immature Gran % 1 H Nucleated RBC % 0 PT INR APTT Fibrinogen Puncture Site ABG pH ABG pCO2 ABG pO2 ABG HCO3 ABG O2 Saturation ABG Base Excess VBG pH 7.49 VBG pCO2 34 L VBG pO2 94 H VBG O2 Sat (Bro) 99 H VBG Base Excess 2 Oxygen Liter Flow FiO2 Sodium 143 Potassium 3.9 Chloride 106 Carbon Dioxide 23.5 Anion Gap 14 BUN 34 H Creatinine 1.8 H Estim Creat Clear Calc 40.6 L eGFR 38 L BUN/Creatinine Ratio 19 Glucose 167 H D Calculated Osmolality 296 H Lactic Acid 1.8 Calcium 8.0 L Corrected Calcium 8.9 Phosphorus 3.9 Magnesium 2.2 Total Bilirubin 0.8 AST 113 H ALT 61 H Alkaline Phosphatase 68 D Total Protein 5.1 L Albumin 2.9 L Globulin 2.2 L Albumin/Globulin Ratio 1.3 Vancomycin Trough Coccidioides IgG Ab Blood Type O Positive Antibody Screen NEGATIVE Crossmatch See Detail Blood Bank Wristband ID Yes 03/13/25 08:43 WBC RBC Hgb Hct MCV MCH MCHC RDW Std Deviation Plt Count Neut % (Auto) Lymph % (Auto) [place] % (Auto) Eos % (Auto) Baso % (Auto) Neut # (Auto) Lymph # (Auto) [place] # (Auto) Eos # (Auto) Baso # (Auto) Immature Gran # (Auto) Absolute Nucleated RBC Immature Gran % Nucleated RBC % PT INR APTT Fibrinogen Puncture Site ABG pH ABG pCO2 ABG pO2 ABG HCO3 ABG O2 Saturation ABG Base Excess VBG pH VBG pCO2 VBG pO2 VBG O2 Sat (Bro) VBG Base Excess Oxygen Liter Flow FiO2 Sodium Potassium Chloride Carbon Dioxide Anion Gap BUN Creatinine Estim Creat Clear Calc eGFR BUN/Creatinine Ratio Glucose Calculated Osmolality Lactic Acid Calcium Corrected Calcium Phosphorus Magnesium Total Bilirubin AST ALT Alkaline Phosphatase Total Protein Albumin Globulin Albumin/Globulin Ratio Vancomycin Trough 15.0 H Coccidioides IgG Ab Blood Type Antibody Screen Crossmatch Blood Bank Wristband ID ABG Interpretation ABG results: 03/05/25 03/09/25 03/12/25 13:17 23:55 15:20 ABG pH 7.45 7.46 H ABG pCO2 27 L 36 ABG pO2 122 H 88 D ABG HCO3 18 L 25 ABG O2 Saturation 100 H 99 H ABG Base Excess -5 L 1 VBG pH 7.39 VBG pCO2 36 VBG pO2 31 VBG Base Excess -3 03/12/25 15:53 ABG pH ABG pCO2 ABG pO2 ABG HCO3 ABG O2 Saturation ABG Base Excess VBG pH 7.49 VBG pCO2 34 L VBG pO2 94 H VBG Base Excess 2 Quality Measures Quality Measures none Advance care planning discussed with:: patient Assessment & Plan Assessment Current Active Medications: Generic Name Dose Route Start Last Admin Trade Name Freq PRN Reason Stop Dose Admin Acetaminophen 650 mg 03/05/25 15:28 03/11/25 01:34 Acetaminophen 325 Mg Tablet PO 04/04/25 15:27 650 mg Q6H PRN Administration Fever >101.5 or pain (1-3) Vancomycin HCl 200 mls @ 120 mls/hr 03/11/25 10:00 03/13/25 10:14 Vancomycin/Water 1gm Ivpb IV 03/18/25 09:59 120 mls/hr QDAY@1000 CLAUDE Administration Protocol Piperacillin/Tazobactam/Dextrose 3.375 g in 50 mls @ 12.5 mls/hr 03/10/25 10:33 03/13/25 06:19 Zosyn IV 03/17/25 10:32 12.5 mls/hr Q8HR CLAUDE Administration Amiodarone HCl/Dextrose 360 mg in 200 mls @ 16.667 mls/hr 03/12/25 16:18 03/13/25 10:56 Nexterone Ivpb IV 03/13/25 16:17 16.667 mls/hr .Q12H CLAUDE Administration Potassium Chloride 10 meq in 100 mls @ 100 mls/hr 03/13/25 11:10 03/13/25 11:36 Kcl Ivpb IV 03/13/25 13:09 100 mls/hr Q1H CLAUDE Administration Ipratropium [place] 0.5 mg 03/12/25 15:00 03/13/25 06:55 Ipratropium Rt 0.5 Mg/ 2.5 Ml Nebu INH 04/11/25 14:59 0.5 mg Q8HRRT CLAUDE Administration Labetalol HCl 10 mg 03/13/25 11:16 Labetalol Inj 5 Mg/Ml Vial 20 Ml IVP 04/12/25 09:59 Q4HR PRN SBP > 170 Levalbuterol HCl 1.25 mg 03/12/25 14:00 03/13/25 06:55 Levalbuterol Rt 1.25 Mg/0.5 Ml Nebu INH 04/11/25 13:59 1.25 mg Q8HR CLAUDE Administration Morphine Sulfate 5 mg 03/12/25 22:24 Morphine Sulf Inj 10 Mg/Ml Vial IVP 03/17/25 22:23 Q4HR PRN PAIN SCALE 4-6 (Moderate Ondansetron HCl 4 mg 03/05/25 13:06 Ondansetron Inj 2 Mg/Ml Inj 2 Ml IVP 04/04/25 13:05 Q4HR PRN NAUSEA OR VOMITING Pantoprazole Sodium 40 mg 03/12/25 12:45 03/13/25 08:04 Pantoprazole Inj 40 Mg Vial IVP 04/11/25 12:44 40 mg BID CLAUDE Administration Sodium Chloride 3 ml 03/12/25 10:45 Sodium Chloride Rt Aleena 0.9% 3 Ml Nebu INH 04/11/25 10:44 PRN PRN SOLN Plan Devan Rios is an 79-year-old male with past medical history of A-fib on Xarelto, hypertension, RA, PMR, and CKDIIIa who presented to [facility] ED on 03/05 for generalized weakness and inability to walk, admitted for upper and lower GIB, course complicated by ischemic CVAs, and fevers and AMS c/f bowel perforation. Patient was upgraded to ICU level care for close monitoring post-op R hemicolectomy on 03/12/2025. #Cecal viscous bowel perforation s/p right colon resection with anastamosis #Peritonitis Starting 03/11, patient's abdomen acutely distended and tense c/f SBO vs ileus. Repeat KUB showed high grade mechanical SBO pattern. CTAP showed pneumoperitoneum, suspicious for ischemic bowel including right colon and small bowel, significantly distended small bowel loops consistent with obstruction. Right colon resection with anastamosis was completed on 03/12/2025, patient was found to have longitudinal viscous tear in the cecum with fecal contamination. Hepatic flexure was not removed. Also seemed to have SBO without any ischemic bowel. Small bowel was found to be very dilated and obstructed, therefore was decompressed by aspirating small bowel contents. Plan: - Continue with NG tube, NPO until further advancement per surgery - Continue piperacillin/tazobactam (03/10-) - Stopped IV fluids - Hold all oral medications #Acute encephalopathy, likely multifactorial #Aspiration pneumonia #Fever, improving Presented with fatigue that had sudden onset on 03/05 in the morning likely 2/2 symptomatic anemia. Rapid response x2 were called 03/08 and 03/10 for fever and acute AMS. Since, patient has had fluctuations of mental status return to baseline, then becoming altered. Patient had a fever on 03/08 initially, which has become more frequent over time. Tmax 102.4. Patient did have a sudden spike in WBC on second rapid response without leukocytosis, however this WBC quickly resolved back to baseline about 3 hours later. On 03/11 nursing recorded episode of vomiting, where patient likely aspirated as morning of 03/12, patient desaturated to 93% requiring 4L O2 oxymask. Acute encephalopathy likely multifactorial iso aspiration PNA and stroke. Fever ddx includes L arm cellulitis, meningitis, delayed nonhemolytic transfusion reaction, febrile nonhemolytic transfusion reaction, however improving on antibiotics. Dixon test neg, digoxin levels 0.7, folate and B12 wnl s/p B12 injection 03/09, T4 wnl, CRP and ESR wnl, cocci IgM and IgG neg, BCx and UCx negative Plan: - F/u thiamine, HSV ? Continue piperacillin/tazobactam (03/10-) - Discontinued vancomycin 03/10-03/13 - Continue scheduled Duonebs q8h ? Neurology consulted, recommends EEG and possible LP ? Infectious disease consulted, appreciate recommendations ? Aspiration precautions elevate head of bed at 30 degrees #Multiembolic pattern ischemic CVA #History of TIA #Transient aphasia Patient has hx of atrial fibrillation on Xarelto which was held on admission 03/05 due to GIB. Due to episodes of altered mental status starting 03/08, the patient had a code stroke called. CT head without contrast and CTA head and neck were negative for stroke. Neurology was consulted, and at the time CT head and CTA head and neck were negative for acute strokes. MRI was not recommended at that time due to concerns of an underlying metabolic encephalopathy. 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 Patient is currently on Xarelto and digoxin. Asked pharmacy about digoxin dosing and they confirmed 0.125 mg daily while patient's family states that the patient takes 0.125 mg Friday and Friday. Contacted Dr. Colon for confirmation, and he stated that the patient was okay taking 0.125 mg Friday. Patient's uncontrolled rate a-fib RVR is likely 2/2 presence of likely suspected SBO vs ileus CHADS-VASC score 4 (stroke risk 4.8% per year) HAS-BLED score 3 (bleed risk 5.8%, patient is at high risk for major bleeding) Plan: ? Stopped patient's home digoxin ? Continue amiodarone drip - Per cardiology, PO diltiazem 30 mg QID, however held iso SBO and c/f bowel perforation - IV labetalol 10 mg IVP if SBP >170 or DBP >120 ? Consulted cardiology, Dr. Colon, recs appreciated #Upper and lower GI bleed 2/2 #Angiodysplasias of GI tract #Symptomatic anemia (resolved) Patient was brought to ED due to generalized fatigue and difficulty waking on the morning of 03/05 with melena started 2-3 weeks ago. Admission H&H 12/01/.2 s/p 2 prbc on 03/05 and 2 more pRBC on 03/07 with stabilization of H&H. Initial EGD showed angiodysplastic bleeding in gastric body and gastric fundus, requiring cautery and clipping. Repeat EGD 03/07, which showed no additional bleeding Colonoscopy planned for 03/08, delayed to 03/09, which showed moderate diverticulosis in sigmoid and descending colon, and multiple bleeding colonic angiodysplastic lesions that were treated with argon plasma coagulation Ddx for multiple angiodysplasias possibly secondary to subtherapeutic anticoagulation on Xarelto 15 mg instead of Xarelto 20 mg causing multiple emboli with possible embolisms to GI tract Plan: ? GI consulted, recs appreciated ? Echocardiogram pending to identify possible cardiac vulvular stenosis ? Patient to follow-up with Dr. Bauer, GI, and referral to perform capsule endoscopy #VANNA on CKD likely prerenal In the ED, the patient had a BUN of 85, creatinine of 2.1, and GFR of 31. On chart review, patient has CKDIII with baseline Cr 1.4-1.7. VANNA likely 2/2 acute loss of blood due to GI bleed, resulting in decreased blood flow to the kidneys, which resolved 03/09 03/12 Cr increased to 1.8, likely 2/2 to suspected SBO. Plan: - SBO treatment plan as above ? Renally dose medications ? Avoid nephrotoxic medications ? Will hold off on IV fluid hydration given mild heart failure congestion on repeat CXR #?CHF Patient does not have a documented history of CHF, but patient takes furosemide 20 mg p.o. daily at home. Echocardiogram done on 04/30/2018 showed EF of 50% with moderate mitral regurgitation. Plan: ? Will hold patient's home furosemide given suspected SBO - F/u echo ? Strict ins and outs and daily weights #Primary Hypertension Patient has a history of hypertension. Patient takes benazepril 40 mg daily and clonidine 0.2 mg 3 times daily at home. Plan: - IV labetalol 10 mg IVP if SBP >170 or DBP >120 ? Will hold patient's home antihypertensives of benazepril, clonidine, furosemide ? Will monitor blood pressure closely Hospital management: Lines: Peripheral IV, NG tube Diet: NPO Bowel: None GI prophylaxis: IV pantoprazole 40 mg BID DVT prophylaxis: hold xarelto iso ischemic stroke Disposition: tele for c/f perforated bowel and SBO CODE STATUS: Full code Patient plan of care was discussed with the attending physician, Dr. Srinivasan. Gianna Reynolds, PGY-3 Attending Provider Attestation/Addendum Patient seen and examined resident team, agree with above. In brief this is an 79-year-old male who went to the OR yesterday evening. Apparently the surgery was complex and though the patient was successfully extubated the surgeon wanted to watch the patient a little bit more closely in the ICU. He has done well overnight. He was found to have a perforated viscus which was repaired in the OR. He underwent a ex lap with resection of the cecum and the a ascending colon with a ilio ascending colostomy. He has been hemodynamically stable and in the ICU. He is awake alert and conversant. His lung dooley are clear, his heart rate is regular and rhythmic, his abdomen is benign. Surgical gauze in place with minimal seepage. No focal neurological deficits. Today the patient appears stable for downgrade to continue to follow with his internal medicine team and surgery. Case discussed with ICU team labs, imaging and records reviewed Approximately 37 minutes required for evaluation, exam, review, intervention, discussion and formulation of plan of care for this acutely ill gentleman
[2025-03-13] MEDS: LIDOCAINE HCL 1% 20 ML VIAL 5 ML TOP (11:56)
--- NOTE | 2025-03-13 12:42 | ESPR_ITS ---
Documentation for date of: 03/13/25 Subjective Subjective Brief History: Patient was found to have GI bleeding that required coagulation of the AVM in the stomach and the colon. He denies any history of pain. He has not had any such pain in the past and he has stopped his bleeding. However his abdomen was distended and residents asked me to see if we can decompress the patient was seen by me earlier for abdominal distention and the resident was asking whether we could introduce an NG tube. I said yes at that time abdominal x-ray showed no abnormality other than dilated cecum. After decompression CT scan was obtained and showed free air around the cecum and under the diaphragm. Therefore second consultation was obtained for further management. Patient is possibly history revealed that he had extensive disease with a history of hypertension anemia GI bleed atrial fibrillation congestive heart failure CVA. Patient also has been admitted with altered mental status. When he came in he was admitted for weakness 1 week ago subsequently he was found to have marked anemia for which she was transfused 4 units of blood. Evaluation with the movie producer showed that patient had some angiodysplasia in the ascending colon and in the stomach which was treated with coagulation. Patient seems to have had done reasonably well but recently started having pain and tenderness and abdominal distention. Because of the distention surgical consultation was obtained I and I saw him. We decided to put an NG tube. Meanwhile he is was found to have tenderness in the right lower quadrant and a CT scan showed possible free air. Narrative: Patient was extubated last night and is breathing well Exam Vital Signs Temp Pulse Resp BP Pulse Ox O2 Del Method O2 Flow Rate 97.9 F 86 16 166/123 H 99 Nasal Cannula 2 03/13/25 12:24 03/13/25 12:24 03/13/25 12:24 03/13/25 12:24 03/13/25 12:24 03/13/25 11:00 03/13/25 12:24 His vital signs are normal other than elevated BP Routine Abdominal Exam Comments: The abdominal wound showed some bleeding and required 1 stitch. Skin bleeding at the incision Assessment & Plan Assessment Additional comments: Stable postoperative course Plan Plan we shall keep him n.p.o. because of the anastomosis and small bowel obstruction. Patient may be transferred to regular floor PROCEDURES: Procedures Exploratory laparotomy and resection of the cecum and the ascending colon and ilio ascending colostomy
--- NOTE | 2025-03-13 14:15 | PD.RESPRO ---
Documentation for date of: 03/13/25 Subjective Subjective Interval history: Overnight events: No acute events overnight. Patient was seen and examined at bedside. AM vitals and labs reviewed. Patient awake and oriented to person, place, time, situation. Patient states that his abdominal pain has improved. General surgery came earlier in the day due to superficial bleeding at incision site. NG tube in place. Blood transfusion currently active. Will continue patient on amiodarone drip until tomorrow, will plan to convert to oral if patient tolerates, pending speech evaluation 03/14. Repeat CBC ordered at 1700. Continue patient n.p.o. and continue NG tube. Pending echo with bubble study. Repeat EKG today. Continue vancomycin and piperacillin/tazobactam. Review of systems otherwise negative except for what is mentioned above. Exam Vital Signs Temp Pulse Resp BP Pulse Ox O2 Del Method O2 Flow Rate 97.9 F 86 17 158/105 H 99 Nasal Cannula 2 03/13/25 12:24 03/13/25 12:33 03/13/25 12:33 03/13/25 12:33 03/13/25 12:33 03/13/25 12:20 03/13/25 12:24 Narrative Exam Physical Exam: General: Alert, no acute distress. Skin: Warm, intact, no obvious rash. Head: Normocephalic, atraumatic. Eye: Normal conjunctiva, PERRL. Cardiovascular: Regular rate and rhythm, soft systolic murmur best heard over tricuspid region, +S1/S2. Respiratory: Lungs are clear to auscultation, respirations unlabored, no crackles, no wheezing. Gastrointestinal: Soft, nontender, non-distended. No guarding or rebound tenderness. Extremities: No edema, no cyanosis, no clubbing. Left arm slightly swollen, non-tender, and dark discoloring present. Neuro: No focal deficits observed. Conversant, moving all extremities. No overt cerebellar signs/incoordination. Psychiatric: Cooperative, appropriate affect. Objective Labs 03/13/25 05:21 03/13/25 05:21 Labs: Laboratory Results - last 24 hr 03/10/25 03/12/25 03/12/25 11:25 15:20 15:53 WBC RBC Hgb Hct MCV MCH MCHC RDW Std Deviation Plt Count Neut % (Auto) Lymph % (Auto) [place] % (Auto) Eos % (Auto) Baso % (Auto) Neut # (Auto) Lymph # (Auto) [place] # (Auto) Eos # (Auto) Baso # (Auto) Immature Gran # (Auto) Absolute Nucleated RBC Immature Gran % Nucleated RBC % Puncture Site Right Brachial ABG pH 7.46 H ABG pCO2 36 ABG pO2 88 D ABG HCO3 25 ABG O2 Saturation 99 H ABG Base Excess 1 VBG pH 7.49 VBG pCO2 34 L VBG pO2 94 H VBG O2 Sat (Bro) 99 H VBG Base Excess 2 Oxygen Liter Flow 4 FiO2 21 Sodium Potassium Chloride Carbon Dioxide Anion Gap BUN Creatinine Estim Creat Clear Calc eGFR BUN/Creatinine Ratio Glucose Calculated Osmolality Lactic Acid 1.8 Calcium Corrected Calcium Phosphorus Magnesium Total Bilirubin AST ALT Alkaline Phosphatase Total Protein Albumin Globulin Albumin/Globulin Ratio Vancomycin Trough Coccidioides IgG Ab Negative Blood Type Antibody Screen Crossmatch Blood Bank Wristband ID 03/12/25 03/13/25 03/13/25 17:13 05:21 08:43 WBC 6.5 RBC 2.57 L Hgb 7.9 L Hct 24.1 L MCV 94 MCH 30.7 MCHC 32.8 RDW Std Deviation 73.3 H Plt Count 176 Neut % (Auto) 91 H Lymph % (Auto) 3 L [place] % (Auto) 5 Eos % (Auto) 0 Baso % (Auto) 0 Neut # (Auto) 5.9 Lymph # (Auto) 0.2 L [place] # (Auto) 0.3 Eos # (Auto) 0.0 Baso # (Auto) 0.0 Immature Gran # (Auto) 0.03 H Absolute Nucleated RBC 0.00 Immature Gran % 1 H Nucleated RBC % 0 Puncture Site ABG pH ABG pCO2 ABG pO2 ABG HCO3 ABG O2 Saturation ABG Base Excess VBG pH VBG pCO2 VBG pO2 VBG O2 Sat (Bro) VBG Base Excess Oxygen Liter Flow FiO2 Sodium 143 Potassium 3.9 Chloride 106 Carbon Dioxide 23.5 Anion Gap 14 BUN 34 H Creatinine 1.8 H Estim Creat Clear Calc 40.6 L eGFR 38 L BUN/Creatinine Ratio 19 Glucose 167 H D Calculated Osmolality 296 H Lactic Acid Calcium 8.0 L Corrected Calcium 8.9 Phosphorus 3.9 Magnesium 2.2 Total Bilirubin 0.8 AST 113 H ALT 61 H Alkaline Phosphatase 68 D Total Protein 5.1 L Albumin 2.9 L Globulin 2.2 L Albumin/Globulin Ratio 1.3 Vancomycin Trough 15.0 H Coccidioides IgG Ab Blood Type O Positive Antibody Screen NEGATIVE Crossmatch See Detail Blood Bank Wristband ID Yes ABG Interpretation ABG results: 03/05/25 03/09/25 03/12/25 13:17 23:55 15:20 ABG pH 7.45 7.46 H ABG pCO2 27 L 36 ABG pO2 122 H 88 D ABG HCO3 18 L 25 ABG O2 Saturation 100 H 99 H ABG Base Excess -5 L 1 VBG pH 7.39 VBG pCO2 36 VBG pO2 31 VBG Base Excess -3 03/12/25 15:53 ABG pH ABG pCO2 ABG pO2 ABG HCO3 ABG O2 Saturation ABG Base Excess VBG pH 7.49 VBG pCO2 34 L VBG pO2 94 H VBG Base Excess 2 Quality Measures Quality Measures none Advance care planning discussed with:: patient, spouse and child Assessment & Plan Assessment Current Active Medications: Generic Name Dose Route Start Last Admin Trade Name Freq PRN Reason Stop Dose Admin Acetaminophen 650 mg 03/05/25 15:28 03/11/25 01:34 Acetaminophen 325 Mg Tablet PO 04/04/25 15:27 650 mg Q6H PRN Administration Fever >101.5 or pain (1-3) Vancomycin HCl 200 mls @ 120 mls/hr 03/11/25 10:00 03/13/25 10:14 Vancomycin/Water 1gm Ivpb IV 03/18/25 09:59 120 mls/hr QDAY@1000 CLAUDE Administration Protocol Piperacillin/Tazobactam/Dextrose 3.375 g in 50 mls @ 12.5 mls/hr 03/10/25 10:33 03/13/25 13:21 Zosyn IV 03/17/25 10:32 12.5 mls/hr Q8HR CLAUDE Administration Amiodarone HCl/Dextrose 360 mg in 200 mls @ 16.667 mls/hr 03/12/25 16:18 03/13/25 10:56 Nexterone Ivpb IV 03/13/25 16:17 16.667 mls/hr .Q12H CLAUDE Administration Ipratropium Donald 0.5 mg 03/12/25 15:00 03/13/25 06:55 Ipratropium Rt 0.5 Mg/ 2.5 Ml Nebu INH 04/11/25 14:59 0.5 mg Q8HRRT CLAUDE Administration Labetalol HCl 10 mg 03/13/25 12:28 Labetalol Inj 5 Mg/Ml Vial 20 Ml IVP 04/12/25 09:59 Q4HR PRN Sbp > 170 or SBP > 120 Levalbuterol HCl 1.25 mg 03/12/25 14:00 03/13/25 06:55 Levalbuterol Rt 1.25 Mg/0.5 Ml Nebu INH 04/11/25 13:59 1.25 mg Q8HR CLAUDE Administration Morphine Sulfate 5 mg 03/12/25 22:24 Morphine Sulf Inj 10 Mg/Ml Vial IVP 03/17/25 22:23 Q4HR PRN PAIN SCALE 4-6 (Moderate Ondansetron HCl 4 mg 03/05/25 13:06 Ondansetron Inj 2 Mg/Ml Inj 2 Ml IVP 04/04/25 13:05 Q4HR PRN NAUSEA OR VOMITING Pantoprazole Sodium 40 mg 03/12/25 12:45 03/13/25 08:04 Pantoprazole Inj 40 Mg Vial IVP 04/11/25 12:44 40 mg BID CLAUDE Administration Sodium Chloride 3 ml 03/12/25 10:45 Sodium Chloride Rt Aleena 0.9% 3 Ml Nebu INH 04/11/25 10:44 PRN PRN SOLN Plan Devan Rios is an 79M pmhx significant for A-fib on Xarelto, hypertension, RA, PMR, and CKDIIIa who presented to [facility] ED on 03/05 for generalized weakness and inability to walk, admitted for upper and lower GIB, course complicated by ischemic CVAs, and fevers and AMS c/f bowel perforation. #Bowel perforation, serosal tear, cecum #Pneumoperitoneum c/f bowel perforation #Suspected SBO vs ileus Overnight on 03/11, patient's abdomen acutely distended and tense c/f SBO vs ileus. Repeat KUB showed high grade mechanical SBO pattern. Patient is unable to communicate if he is passing gas, AOx2 to person and time only. CTAP showed pneumoperitoneum, suspicious for ischemic bowel including right colon and small bowel, significantly distended small bowel loops consistent with obstruction Plan: - Hold all oral medications - NG tube placed, per surgery and GI - Surgery Dr. Smith consulted, performed exploratory laparotomy, found serosal tear in cecum that was repaired - Continue vancomycin and piperacillin/tazobactam (03/10--) #Acute encephalopathy, likely multifactorial 2/2 #Aspiration pneumonia #Fever, improving Presented with fatigue that had sudden onset on 03/05 in the morning likely 2/2 symptomatic anemia. Rapid response x2 were called 03/08 and 03/10 for fever and acute AMS. Since, patient has had fluctuations of mental status return to baseline, then becoming altered. Patient had a fever on 03/08 initially, which has become more frequent over time. Tmax 102.4. Patient did have a sudden spike in WBC on second rapid response without leukocytosis, however this WBC quickly resolved back to baseline about 3 hours later. On 03/11 nursing recorded episode of vomiting, where patient likely aspirated as morning of 03/12, patient desaturated to 93% requiring 4L O2 oxymask. Acute encephalopathy likely multifactorial iso aspiration PNA and stroke. Fever ddx includes L arm cellulitis, meningitis, delayed nonhemolytic transfusion reaction, febrile nonhemolytic transfusion reaction, however improving on antibiotics. Dixon test neg, digoxin levels 0.7, folate and B12 wnl s/p B12 injection 03/09, T4 wnl, CRP and ESR wnl, cocci IgM and IgG neg, BCx and UCx NGTD Plan: - F/u thiamine, HSV ? Vancomycin and piperacillin/tazobactam (03/10--) - Start scheduled Duonebs q8h ? Neurology consulted, recommends EEG and possible LP ? Infectious disease consulted, appreciate recommendations ? Aspiration precautions elevate head of bed at 30 degrees - Pending speech evaluation for aspiration #Ischemic CVA, embolic (frontal lobe, parietal lobe, basal ganglia, posterior left temporal lobe) #History of TIA #Transient aphasia Patient has hx of atrial fibrillation on Xarelto which was held on admission 03/05 due to GIB. Due to episodes of altered mental status starting 03/08, the patient had a code stroke called. CT head without contrast and CTA head and neck were negative for stroke. Neurology was consulted, and at the time CT head and CTA head and neck were negative for acute strokes. MRI was not recommended at that time due to concerns of an underlying metabolic encephalopathy. Received Xarelto 15 mg 03/10 and 03/11 03/11 MRI showed multiple embolic type acute infarcts in frontal, parietal lobes, basal ganglia and posterior left temporal lobe Plan: - Xarelto held, pending recommendations from general surgery and neurology on restarting - Atorvastatin held iso suspected bowel perforation - Neurology consulted, recs appreciated #A-fib with RVR, rate not controlled, on Xarelto Patient has a history of atrial fibrillation and sees clean out driller Dr. Colon for management. Patient is currently on Xarelto and digoxin. Asked pharmacy about digoxin dosing and they confirmed 0.125 mg daily while patient's family states that the patient takes 0.125 mg Friday and Friday. Contacted Dr. Colon for confirmation, and he stated that the patient was okay taking 0.125 mg Friday. Patient's uncontrolled rate a-fib RVR is likely 2/2 presence of likely suspected SBO vs ileus CHADS-VASC score 4 (stroke risk 4.8% per year) HAS-BLED score 3 (bleed risk 5.8%, patient is at high risk for major bleeding) Plan: ? Stopped patient's home digoxin ? Amiodarone drip, called pharmacy extend to end 03/14 - Per cardiology, PO diltiazem 30 mg QID, however held iso SBO and c/f bowel perforation - Plan for IV metoprolol 2.5 mg IVP if HR >130 and if SBP >120 and HR >60 ? Consulted cardiology, Dr. Colon, recs appreciated - Repeat EKG 03/13 #Upper and lower GI bleed 2/2 #Angiodysplasias of GI tract #Symptomatic anemia (resolved) Patient was brought to ED due to generalized fatigue and difficulty waking on the morning of 03/05 with melena started 2-3 weeks ago. Admission H&H 12/01/16.2 s/p 2 prbc on 03/05 and 2 more pRBC on 03/07 with stabilization of H&H. Initial EGD showed angiodysplastic bleeding in gastric body and gastric fundus, requiring cautery and clipping. Repeat EGD 03/07, which showed no additional bleeding Colonoscopy planned for 03/08, delayed to 03/09, which showed moderate diverticulosis in sigmoid and descending colon, and multiple bleeding colonic angiodysplastic lesions that were treated with argon plasma coagulation Ddx for multiple angiodysplasias possibly secondary to subtherapeutic anticoagulation on Xarelto 15 mg instead of Xarelto 20 mg causing multiple emboli with possible embolisms to GI tract Plan: ? GI consulted, recs appreciated ? Echocardiogram pending to identify possible cardiac vulvular stenosis ? Patient to follow-up with Dr. Bauer, GI, and referral to perform capsule endoscopy #VANNA on CKD likely prerenal In the ED, the patient had a BUN of 85, creatinine of 2.1, and GFR of 31. On chart review, patient has CKDIII with baseline Cr 1.4-1.7. VANNA likely 2/2 acute loss of blood due to GI bleed, resulting in decreased blood flow to the kidneys, which resolved 03/09 03/12 Cr increased to 1.8, likely 2/2 to suspected SBO. Plan: - SBO treatment plan as above ? Renally dose medications ? Avoid nephrotoxic medications ? Will hold off on IV fluid hydration given mild heart failure congestion on repeat CXR #CHF (EF 55% 2024) Patient does not have a documented history of CHF, but patient takes furosemide 20 mg p.o. daily at home. Echocardiogram done on 04/30/2018 showed EF of 50% with moderate mitral regurgitation. Plan: ? Will hold patient's home furosemide given suspected SBO ? Strict ins and outs and daily weights ?Echocardiogram 03/11 showed negative bubble study, EF 55%, severely increased left atrial volume, aortic valve sclerosis without stenosis, mild mitral regurgitation, mild aortic regurgitation, mild tricuspid regurgitation, no thrombi. #Primary Hypertension Patient has a history of hypertension. Patient takes benazepril 40 mg daily and clonidine 0.2 mg 3 times daily at home. Plan: ? Will hold patient's home antihypertensives of benazepril, clonidine, furosemide ? Will monitor blood pressure closely DVT Prophylaxis: SCDs GI Prophylaxis: Protonix Bowel: N/A Diet: NPO Justin: N/A Lines: Peripheral IV Antibiotics: Vancomycin & Zosyn (03/10--) Code Status: FULL Reason for Hospitalization: GI bleed Other Barriers to Discharge: Speech eval, DOAC recs Patient plan of care was discussed with the senior resident Dr. Winters and attending physician Dr. Singh Levine, PGY1 Attending Provider Attestation/Addendum I Nilson Winters MD reviewed the note and agree with the resident's assessment & plan with exceptions/additions as below. I have personally reviewed labs, imaging, home meds/prior records, examined the patient, formulated and discussed management plan with the IM team. An 79-year-old male with Hx of AF, HTN, CKD, RA hospitalized for severe symptomatic anemia requiring transfusions and noted to have gastrointestinal angiodysplasia s/p EGD and colonoscopy with argon laser ablation. Hospital course complicated by recurrent fevers, abdominal distention and altered mental status leading to further investigation revealing multiple acute embolic strokes, aspiration pneumonia/HCAP, ischemic colitis with small bowel obstruction & bowel perforation. He had exploratory laparotomy on 03/12/2025 with partial right hemicolectomy. Patient is requiring supplemental oxygen with mild respiratory distress concerning for worsening aspiration pneumonia. Keep n.p.o., obtain ABG, continue Zosyn and vancomycin empirically, repeat lactate leve. Patient also noted to be in AF however rate is well-controlled. Bedside echocardiogram did not reveal any LV thrombus and EF appears normal. Keep n.p.o., continue maintenance IV fluid resuscitation, continue amiodarone infusion, resume diltiazem lower dose, discontinue digoxin. Keep holding Xarelto in the setting of multiple strokes and recent laparotomy with surgical site bleeding earlier this morning, follow-up with neurology regarding anticoagulation reinitiation. Follow-up with echocardiogram with bubble study. Will allow permissive hypertension without any strict control, However use labetalol 5 mg IV every 4 hours for SBP for SBP >160mmHG. Will get speech evaluation, PT/OT therapies. Extensively discussed with patient's family including his and son regarding active issues, current management, potential outcome including poor prognosis. Family understands patient's situation and appreciative of our efforts. Extensive multidisciplinary discussion was also held with gastroenterology and general surgery team at bedside.
--- NOTE | 2025-03-13 15:54 | PC.NURSE ---
pt having more frequent PVCs, Dr. Levine notified, no orders at this time
--- NOTE | 2025-03-13 17:40 | EKG_ITS ---
[facility] Test Date: 2025-03-13 Pat Name: BIN BARNETT Department: [facility] Gender: Male Aircraft Communicator: : 1945 Requested By: Jhon Levine Order Number: [id number] Reading MD: Jhon Levine Measurements Intervals [place] Rate: 100 P: [place]: QRS: 32 QRSD: 94 T: -71 QT: 365 QTc: 473 Interpretive Statements ATRIAL FIBRILLATION WITH RAPID VENTRICULAR RESPONSE WITH ABERRANT CONDUCTION OR VENTRICULAR PREMATURE COMPLEXES NONSPECIFIC T-WAVE ABNORMALITY Compared to ECG 03/12/2025 11:10:36 Ventricular premature complex(es) now present Aberrant conduction of supraventricular beat(s) now present T-wave abnormality still present /store/S0/[id number].pdf
[2025-03-13 18:19] LABS: Basophils # (Auto) 0.0 Thou/mm3 (0.0-0.2); Basophils % (Auto) 0 % (0-2.5); Eosinophils # (Auto) 0.0 Thou/mm3 (0.0-0.5); Eosinophils % (Auto) 0 % (0-10); Hematocrit 28.8 % (41.0-53.0); Hemoglobin 9.4 g/dL (13.5-16.0); Immature Granulocytes Auto 0.05 Thou/mm3 (0.00-0.00); Lymphocytes # (Auto) 0.3 Thou/mm3 (1.0-4.8); Lymphocytes % (Auto) 3 % (10-50); Mean Corpuscular HGB Conc 32.6 g/dl (31.0-37.0); Mean Corpuscular Hemoglobin 30.3 pg (25.0-35.0); Mean Corpuscular Volume 93 fL (80-100); Monocytes # (Auto) 0.7 Thou/mm3 (0.0-0.8); Monocytes % (Auto) 8 % (0-12); Neutrophils # (Auto) 8.6 Thou/mm3 (1.8-7.7); Neutrophils % (Auto) 89 % (37-80); Nucleated Red Blood Cell # 0.00 Thou/mm3 (0.00-0.00); Nucleated Red Blood Cell % 0 /100 WBC (0); Platelet Count 192 Thou/mm3 (140-440); RDW Standard Deviation 70.9 fL (35.1-43.9); Red Blood Count 3.10 Miln/mm3 (4.50-5.90); White Blood Count 9.7 Thou/mm3 (3.8-10.6)
--- NOTE | 2025-03-13 19:35 | PC.NURSE ---
DR. HERNDON AT BEDSIDE. STATING OK FOR PT TO HAVE ICE CHIPS. STATES DO NOT REPLACE NGT IF PT WERE TO PULL IT OUT. PLAN IS TO REMOVE NGT IF NO/LOW OUTPUT TOMORROW.
--- NOTE | 2025-03-13 20:00 | PC.NURSE ---
at 1706, confirmed with JAMES Bazan SET to LIS
--- NOTE | 2025-03-13 20:10 | PD.IMPROG ---
Documentation for date of: 03/13/25 Subjective Subjective Interval history: Case discussed with the operating surgeon Cecal perforation During the colonoscopy on 03/09/[address] APC laser which is the argon laser used was proximal ascending colon No argon laser is used in the cecum So this particular perforation is not endoscopy related Surprisingly it happened randomly There was fecal contamination in the abdomen was clearly washed And primary anastomosis was accomplished ilio ascending colon It was a limited resection of the colon the ascending colon hepatic flexure did not have to be mobilized Exam Vital Signs Temp Pulse Resp BP Pulse Ox O2 Del Method O2 Flow Rate 97.2 F 95 19 168/87 H 94 L Room Air 2 03/13/25 16:55 03/13/25 16:55 03/13/25 16:55 03/13/25 16:55 03/13/25 16:55 03/13/25 16:55 03/13/25 12:24 Objective Labs 03/13/25 17:30 03/13/25 05:21 Labs: Laboratory Results - last 24 hr 03/12/25 03/13/25 03/13/25 17:13 05:21 08:43 WBC 6.5 RBC 2.57 L Hgb 7.9 L Hct 24.1 L MCV 94 MCH 30.7 MCHC 32.8 RDW Std Deviation 73.3 H Plt Count 176 Neut % (Auto) 91 H Lymph % (Auto) 3 L [place] % (Auto) 5 Eos % (Auto) 0 Baso % (Auto) 0 Neut # (Auto) 5.9 Lymph # (Auto) 0.2 L [place] # (Auto) 0.3 Eos # (Auto) 0.0 Baso # (Auto) 0.0 Immature Gran # (Auto) 0.03 H Absolute Nucleated RBC 0.00 Immature Gran % 1 H Nucleated RBC % 0 Sodium 143 Potassium 3.9 Chloride 106 Carbon Dioxide 23.5 Anion Gap 14 BUN 34 H Creatinine 1.8 H Estim Creat Clear Calc 40.6 L eGFR 38 L BUN/Creatinine Ratio 19 Glucose 167 H D Calculated Osmolality 296 H Calcium 8.0 L Corrected Calcium 8.9 Phosphorus 3.9 Magnesium 2.2 Total Bilirubin 0.8 AST 113 H ALT 61 H Alkaline Phosphatase 68 D Total Protein 5.1 L Albumin 2.9 L Globulin 2.2 L Albumin/Globulin Ratio 1.3 Vancomycin Trough 15.0 H Blood Type O Positive Antibody Screen NEGATIVE Crossmatch See Detail Blood Bank Wristband ID Yes 03/13/25 17:30 WBC 9.7 D RBC 3.10 L Hgb 9.4 L Hct 28.8 L MCV 93 MCH 30.3 MCHC 32.6 RDW Std Deviation 70.9 H Plt Count 192 Neut % (Auto) 89 H Lymph % (Auto) 3 L [place] % (Auto) 8 Eos % (Auto) 0 Baso % (Auto) 0 Neut # (Auto) 8.6 H Lymph # (Auto) 0.3 L [place] # (Auto) 0.7 Eos # (Auto) 0.0 Baso # (Auto) 0.0 Immature Gran # (Auto) 0.05 H Absolute Nucleated RBC 0.00 Immature Gran % 1 H Nucleated RBC % 0 Sodium Potassium Chloride Carbon Dioxide Anion Gap BUN Creatinine Estim Creat Clear Calc eGFR BUN/Creatinine Ratio Glucose Calculated Osmolality Calcium Corrected Calcium Phosphorus Magnesium Total Bilirubin AST ALT Alkaline Phosphatase Total Protein Albumin Globulin Albumin/Globulin Ratio Vancomycin Trough Blood Type Antibody Screen Crossmatch Blood Bank Wristband ID Impressions Impression: Cecal perforation status post ex lap with resection of the cecum and a part of the proximal ascending colon with ilio ascending colon anastomosis Continue postoperative care ABG Interpretation ABG results: 03/05/25 03/09/25 03/12/25 13:17 23:55 15:20 ABG pH 7.45 7.46 H ABG pCO2 27 L 36 ABG pO2 122 H 88 D ABG HCO3 18 L 25 ABG O2 Saturation 100 H 99 H ABG Base Excess -5 L 1 VBG pH 7.39 VBG pCO2 36 VBG pO2 31 VBG Base Excess -3 03/12/25 15:53 ABG pH ABG pCO2 ABG pO2 ABG HCO3 ABG O2 Saturation ABG Base Excess VBG pH 7.49 VBG pCO2 34 L VBG pO2 94 H VBG Base Excess 2 Assessment & Plan A&P Narrative pt HR is in the 120-130 range contine amiodarone drip xarelto add cardizem echo to be done Time Spent With Patient Time: Total time spent is greater than 50% in coordination of care (as documented) at patient's floor/unit and/or counseling patient:
[2025-03-13] MEDS: RINGERS LACTATED 1000 ML 1,000 ML 75 ML IV (21:07)
--- NOTE | 2025-03-13 21:23 | ESPR_ITS ---
Documentation for date of: 03/13/25 Subjective Subjective Interval history: Patient was seen in Telemetry today with c/o visual hallucinations earlier in the day, no other symptoms reported. Had the Ex-Lap yesterday and had the bowel resection. Exam - Neurology Vital Signs Temp Pulse Resp BP Pulse Ox O2 Del Method O2 Flow Rate 96.9 F 110 H 19 150/91 H 97 Room Air 2 03/13/25 20:25 03/13/25 20:25 03/13/25 20:03/13/25 20:03/13/25 20:03/13/25 20:03/13/25 12:24 Narrative Exam GENERAL APPEARANCE: Well hydrated, well-nourished in no acute distress. HEENT: Normocephalic, atraumatic, extraocular movements intact. Pupils: Equal reacting to light NECK: Supple, no JVD or bruits. CARDIOVASULAR: Heart: S1, S2 heard, regular without S3-S4 or murmur no rubs or gallops. LUNGS/CHEST: Clear to auscultation bilaterally. No rails, rhonchi, or wheezing. Normal inspection. ABDOMEN: nontender, with normal bowel sounds, S/P laparotomy EXTREMITIES: Normal inspection and palpation. No edema, clubbing or cyanosis. SKIN: Warm and dry without rashes. Normal inspection. MUSCULOSKELETAL: No cervical, thoracic, lumbar or midline bony tenderness. Normal inspection. NEURO: Alert, awake and oriented x3. Cranial nerves: II through XII grossly intact. Speech and language: Normal with no dysarthria or dysphasia. Motor system: Tone and bulk: Normal: Strength: 5 out of 5 in all 4 extremities; No pronator drift noted. Deep tendon reflexes: 2+ bilaterally symmetrical. Plantar reflex: Downgoing bilaterally. Sensory system: Intact to pinprick sensation bilaterally. Coordination: Intact to [id number] and [id number]-[id number] test bilaterally. No ataxia, no dysmetria, or dysdiadochokinesia noted. No intention tremors noted. Gait: not tested. No signs of meningeal irritation noted. PSYCHIATRIC: Normal mood and affect. Objective Labs 03/13/25 17:30 03/13/25 05:21 Labs: Laboratory Results - last 24 hr 03/12/25 03/13/25 03/13/25 17:13 05:21 08:43 WBC 6.5 RBC 2.57 L Hgb 7.9 L Hct 24.1 L MCV 94 MCH 30.7 MCHC 32.8 RDW Std Deviation 73.3 H Plt Count 176 Neut % (Auto) 91 H Lymph % (Auto) 3 L [place] % (Auto) 5 Eos % (Auto) 0 Baso % (Auto) 0 Neut # (Auto) 5.9 Lymph # (Auto) 0.2 L [place] # (Auto) 0.3 Eos # (Auto) 0.0 Baso # (Auto) 0.0 Immature Gran # (Auto) 0.03 H Absolute Nucleated RBC 0.00 Immature Gran % 1 H Nucleated RBC % 0 Sodium 143 Potassium 3.9 Chloride 106 Carbon Dioxide 23.5 Anion Gap 14 BUN 34 H Creatinine 1.8 H Estim Creat Clear Calc 40.6 L eGFR 38 L BUN/Creatinine Ratio 19 Glucose 167 H D Calculated Osmolality 296 H Calcium 8.0 L Corrected Calcium 8.9 Phosphorus 3.9 Magnesium 2.2 Total Bilirubin 0.8 AST 113 H ALT 61 H Alkaline Phosphatase 68 D Total Protein 5.1 L Albumin 2.9 L Globulin 2.2 L Albumin/Globulin Ratio 1.3 Vancomycin Trough 15.0 H Blood Type O Positive Antibody Screen NEGATIVE Crossmatch See Detail Blood Bank Wristband ID Yes 03/13/25 17:30 WBC 9.7 D RBC 3.10 L Hgb 9.4 L Hct 28.8 L MCV 93 MCH 30.3 MCHC 32.6 RDW Std Deviation 70.9 H Plt Count 192 Neut % (Auto) 89 H Lymph % (Auto) 3 L [place] % (Auto) 8 Eos % (Auto) 0 Baso % (Auto) 0 Neut # (Auto) 8.6 H Lymph # (Auto) 0.3 L [place] # (Auto) 0.7 Eos # (Auto) 0.0 Baso # (Auto) 0.0 Immature Gran # (Auto) 0.05 H Absolute Nucleated RBC 0.00 Immature Gran % 1 H Nucleated RBC % 0 Sodium Potassium Chloride Carbon Dioxide Anion Gap BUN Creatinine Estim Creat Clear Calc eGFR BUN/Creatinine Ratio Glucose Calculated Osmolality Calcium Corrected Calcium Phosphorus Magnesium Total Bilirubin AST ALT Alkaline Phosphatase Total Protein Albumin Globulin Albumin/Globulin Ratio Vancomycin Trough Blood Type Antibody Screen Crossmatch Blood Bank Wristband ID ABG Interpretation ABG results: 03/05/25 03/09/25 03/12/25 13:17 23:55 15:20 ABG pH 7.45 7.46 H ABG pCO2 27 L 36 ABG pO2 122 H 88 D ABG HCO3 18 L 25 ABG O2 Saturation 100 H 99 H ABG Base Excess -5 L 1 VBG pH 7.39 VBG pCO2 36 VBG pO2 31 VBG Base Excess -3 03/12/25 15:53 ABG pH ABG pCO2 ABG pO2 ABG HCO3 ABG O2 Saturation ABG Base Excess VBG pH 7.49 VBG pCO2 34 L VBG pO2 94 H VBG Base Excess 2 Assessment & Plan Assessment and plan (1) Atrial fibrillation: Status: Acute Assessment and plan: continue with rate control, amio (2) Altered mental status: Status: Acute Assessment and plan: LP could not be done sec. to Xarelto on board. no more Fever spikes noted MRI brain: showed multiple tiny embolic type infarcts likely sec. to A. fib. and does have prominent white matter changes consistent with vascular dementia pattern. Need to restart Xarelto when cleared by surgery. (3) Severe anemia: Status: Acute Assessment and plan: HGB stable following transfusion (4) GI (gastrointestinal bleed): Status: Acute Assessment and plan: GI workup completed, findings noted. (5) Acute kidney injury: Status: Acute Assessment and plan: stable at 38, low GFR, creat: 1.8 follow closely continue meds renally dosed.
[2025-03-14] VITALS (14 sets, daily range): BP systolic 118–170; BP diastolic 92–125; PULSE 83–108; RESP 16–93; TEMP 36.1–36.4; O2SAT 93–99; BMI 11.0
[2025-03-14] MEDS: PIPER/TAZO 3.375 GM PREMIX 3.375 G/50 ML BAG IV ×3 (05:51→21:04)
[2025-03-14] MEDS: LEVALBUTEROL RT 1.25 MG/0.5 ML NEBU INH ×3 (07:38→23:05)
[2025-03-14] MEDS: IPRATROPIUM RT 0.5 MG/ 2.5 ML NEBU INH ×3 (07:38→23:05)
[2025-03-14 09:11] LABS: Basophils # (Auto) 0.0 Thou/mm3 (0.0-0.2); Basophils % (Auto) 0 % (0-2.5); Eosinophils # (Auto) 0.0 Thou/mm3 (0.0-0.5); Eosinophils % (Auto) 0 % (0-10); Hematocrit 25.8 % (41.0-53.0); Immature Granulocytes Auto 0.12 Thou/mm3 (0.00-0.00); Lymphocytes # (Auto) 0.5 Thou/mm3 (1.0-4.8); Lymphocytes % (Auto) 4 % (10-50); Mean Corpuscular HGB Conc 33.3 g/dl (31.0-37.0); Mean Corpuscular Hemoglobin 30.9 pg (25.0-35.0); Mean Corpuscular Volume 93 fL (80-100); Monocytes # (Auto) 1.1 Thou/mm3 (0.0-0.8); Monocytes % (Auto) 9 % (0-12); Neutrophils # (Auto) 10.4 Thou/mm3 (1.8-7.7); Neutrophils % (Auto) 86 % (37-80); Nucleated Red Blood Cell # 0.00 Thou/mm3 (0.00-0.00); Nucleated Red Blood Cell % 0 /100 WBC (0); Platelet Count 236 Thou/mm3 (140-440); RDW Standard Deviation 69.6 fL (35.1-43.9); Red Blood Count 2.78 Miln/mm3 (4.50-5.90); White Blood Count 12.1 Thou/mm3 (3.8-10.6)
[2025-03-14 09:15] LABS: Hemoglobin 8.6 g/dL (13.5-16.0)
[2025-03-14 09:39] LABS: Alanine Aminotransferase 63 U/L (10-49); Albumin, Serum 3.0 gm/dL (3.4-4.8); Albumin/Globulin Ratio 1.3 (1.2-2.2); Alkaline Phosphatase 88 U/L (46-116); Anion Gap 13 (7-16); Aspartate Amino Transferase 101 U/L (0-34); BUN/Creatinine Ratio 21 Ratio (12-20); Bilirubin,Total 0.9 mg/dL (0.3-1.2); Blood Urea Nitrogen 34 mg/dL (9-23); Calcium 8.3 mg/dL (8.3-10.6); Calcium (Corrected) 9.1 mg/dL (8.5-10.1); Carbon Dioxide 24.5 mMol/L (20.0-31.0); Chloride 107 mMol/L (98-107); Creatinine (Component) 1.6 mg/dL (0.6-1.3); Estimated Creatinine Clearance 40.4 mL/min (>60); Globulin 2.3 gm/dL (2.3-3.5); Glucose 158 mg/dL (74-106); Magnesium 2.3 mg/dL (1.6-2.6); Osmolality,Calculated 297 (275-295); Phosphorous 3.0 mg/dL (2.4-5.1); Potassium 3.7 mMol/L (3.4-5.1); Sodium 144 mMol/L (136-145); Total Protein 5.3 gm/dL (5.7-8.2); eGFR 43 See Note
--- NOTE | 2025-03-14 09:44 | ESPR_ITS ---
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 I can not cancel them though. ordered up other causes of ams that are treatable and with mikhail. stopped the vanco empirically usual course of rx is 5d post drainage or washout. the stop it trial showed us that and po likely as good, so you can change to unasyn likely tomorrow and possibly home on augmentin on fri if still ok by then. if worse, so back to zosyn and try not to add vanco with mikhail Exam Vital Signs Temp Pulse Resp BP Pulse Ox O2 Del Method O2 Flow Rate 96.9 F 101 H 20 170/101 H 93 L Room Air 2 03/14/25 08:00 03/14/25 08:00 03/14/25 08:00 03/14/25 08:00 03/14/25 08:00 03/14/25 08:00 03/14/25 08:00 Narrative Exam benign abd, seems out of sorts acutely, dr to input noted, agree. no LP noted. if LP done, then pcr for hsv is more valuable than serology Objective - Internal Medicine Labs 03/14/25 07:58 03/13/25 05:21 Labs: Laboratory Results - last 24 hr 03/12/25 03/13/25 03/13/25 17:13 08:43 17:30 WBC 9.7 D RBC 3.10 L Hgb 9.4 L Hct 28.8 L MCV 93 MCH 30.3 MCHC 32.6 RDW Std Deviation 70.9 H Plt Count 192 Neut % (Auto) 89 H Lymph % (Auto) 3 L [place] % (Auto) 8 Eos % (Auto) 0 Baso % (Auto) 0 Neut # (Auto) 8.6 H Lymph # (Auto) 0.3 L [place] # (Auto) 0.7 Eos # (Auto) 0.0 Baso # (Auto) 0.0 Immature Gran # (Auto) 0.05 H Absolute Nucleated RBC 0.00 Immature Gran % 1 H Nucleated RBC % 0 Vancomycin Trough 15.0 H Blood Type O Positive Antibody Screen NEGATIVE Crossmatch See Detail Blood Bank Wristband ID Yes 03/14/25 07:58 WBC 12.1 H RBC 2.78 L Hgb 8.6 L Hct 25.8 L MCV 93 MCH 30.9 MCHC 33.3 RDW Std Deviation 69.6 H Plt Count 236 D Neut % (Auto) 86 H Lymph % (Auto) 4 L [place] % (Auto) 9 Eos % (Auto) 0 Baso % (Auto) 0 Neut # (Auto) 10.4 H Lymph # (Auto) 0.5 L [place] # (Auto) 1.1 H Eos # (Auto) 0.0 Baso # (Auto) 0.0 Immature Gran # (Auto) 0.12 H Absolute Nucleated RBC 0.00 Immature Gran % 1 H Nucleated RBC % 0 Vancomycin Trough Blood Type Antibody Screen Crossmatch Blood Bank Wristband ID ABG Interpretation ABG results: 03/05/25 03/09/25 03/12/25 13:17 23:55 15:20 ABG pH 7.45 7.46 H ABG pCO2 27 L 36 ABG pO2 122 H 88 D ABG HCO3 18 L 25 ABG O2 Saturation 100 H 99 H ABG Base Excess -5 L 1 VBG pH 7.39 VBG pCO2 36 VBG pO2 31 VBG Base Excess -3 03/12/25 15:53 ABG pH ABG pCO2 ABG pO2 ABG HCO3 ABG O2 Saturation ABG Base Excess VBG pH 7.49 VBG pCO2 34 L VBG pO2 94 H VBG Base Excess 2 Assessment & Plan A&P Narrative ams mikhail htn abd perf 79 yoa I can check in fri pm if still here. if home on po agent that is ok. stop it trial suggested 5d post surgery ok for soilage pj if washout done. rx is empiric for now as no cx from non sterile sites noted. all sterile sites neg. ordered w/u for ams for am. stopped the vanco as it is on empirically and there is some mikhail. Time Spent With Patient Time: Total time spent is greater than 50% in coordination of care (as documented) at patient's floor/unit and/or counseling patient:
--- NOTE | 2025-03-14 09:45 | PCS.ST ---
Swallowing evaluation completed. See report for details. No dysphagia. Recommend chopped diet.
[2025-03-14] MEDS: AMIODARONE 360 MG IVPB 360 MG/200 ML BAG 16.667 MG IV (12:03)
--- NOTE | 2025-03-14 12:40 | PD.SURPROG ---
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 He denies any history of pain. He has not had any such pain in the past and he has stopped his bleeding. However his abdomen was distended and residents asked me to see if we can decompress the patient was seen by me earlier for abdominal distention and the resident was asking whether we could introduce an NG tube. I said yes at that time abdominal x-ray showed no abnormality other than dilated cecum. After decompression CT scan was obtained and showed free air around the cecum and under the diaphragm. Therefore second consultation was obtained for further management. Patient is possibly history revealed that he had extensive disease with a history of hypertension anemia GI bleed atrial fibrillation congestive heart failure CVA. Patient also has been admitted with altered mental status. When he came in he was admitted for weakness 1 week ago subsequently he was found to have marked anemia for which she was transfused 4 units of blood. Evaluation with the jacquard card cutter showed that patient had some angiodysplasia in the ascending colon and in the stomach which was treated with coagulation. Patient seems to have had done reasonably well but recently started having pain and tenderness and abdominal distention. Because of the distention surgical consultation was obtained I and I saw him. We decided to put an NG tube. Meanwhile he is was found to have tenderness in the right lower quadrant and a CT scan showed possible free air. Narrative: The patient is confused and is not able to give any history as to whether he passed flatus Exam Vital Signs Temp Pulse Resp BP Pulse Ox O2 Del Method O2 Flow Rate 97.0 F 98 20 157/118 H 94 L Room Air 2 03/14/25 12:00 03/14/25 12:03 03/14/25 12:00 03/14/25 12:03 03/14/25 12:00 03/14/25 12:00 03/14/25 08:00 His vital signs are normal other than mildly elevated blood pressure Routine Abdominal Exam Comments: Abdominal examination showed hypoactive bowel sounds. Wound was dressed. Results Results: Laboratory Laboratory Narrative: CBC showed improving WBC Assessment & Plan Assessment Additional comments: Impression: Slow recovery following perforated cecum on the ascending colon Plan Plan: We shall DC NG DC Justin Start him on clear liquids Patient may have heparin for anticoagulation PROCEDURES: Procedures Exploratory laparotomy and resection of the cecum and the ascending colon and ilio ascending colostomy
--- NOTE | 2025-03-14 12:50 | ESPR_ITS ---
<Statement entered by Jessica Kelly MD - 03/15/25 10:18> Patient was seen and examined at bedside. I agree on the assessment and plan on this note as documented by resident Jhon Levine DO PGY1. 79-year-old male with past medical history as below successfully underwent cecum resection with ascending colostomy, had NG tube this morning was cleared by speech for initiating diet, patient ANO x 3 at bedside. Patient will be started on clear liquid diet per general surgery recommendations, patient also cleared by neurology, general surgery and gastroenterology for resuming heparin drip. Patient will be transition to p.o. amiodarone and amnio drip will be discontinued later. Continue physical therapy, will advance diet as tolerated. Case discussed with attending Dr. Singh Kelly MD PGY-2 Documentation for date of: 03/14/25 Subjective Subjective Interval history: Overnight events: No acute events overnight. Patient was seen and examined at bedside. AM vitals and labs reviewed. NG tube in place. Patient appears to be awake and alert, interactive, oriented to person and time, but not place. Patient passed swallow assessment by speech therapy. Recommended chopped diet to maximize independence with p.o. diet. Will discontinue NG tube today. Will start patient on clear liquid diet. Will continue to hold Xarelto, will use heparin drip for fast reversal if patient has further bleeding at incision site. General surgery Dr. Smith is aware. Notified Dr. Bauer, GI, and Dr Li, neurology. PT/INR ordered. ID consulted, Dr. Zapien recommends stopping vancomycin, possibly changing Zosyn to Unasyn tomorrow, and if patient is stable, can discharge on Augmentin. Review of systems otherwise negative except for what is mentioned above. Exam Vital Signs Temp Pulse Resp BP Pulse Ox O2 Del Method O2 Flow Rate 97.0 F 98 20 157/118 H 94 L Room Air 2 03/14/25 12:00 03/14/25 12:03 03/14/25 12:00 03/14/25 12:03 03/14/25 12:00 03/14/25 12:00 03/14/25 08:00 Narrative Exam Physical Exam: General: Alert, no acute distress. Skin: Warm, intact, no obvious rash. Head: Normocephalic, atraumatic. Eye: Normal conjunctiva, PERRL. Cardiovascular: Regular rate and rhythm, soft systolic murmur best heard over tricuspid region, +S1/S2. Respiratory: Lungs are clear to auscultation, respirations unlabored, no crackles, no wheezing. Gastrointestinal: Soft, nontender, non-distended. No guarding or rebound tenderness. Extremities: No edema, no cyanosis, no clubbing. Left arm slightly swollen, non- tender, and dark discoloring present. Neuro: No focal deficits observed. Conversant, moving all extremities. No overt cerebellar signs/incoordination. Psychiatric: Cooperative, appropriate affect. Objective Labs 03/14/25 07:58 03/14/25 07:58 Labs: Laboratory Results - last 24 hr 03/12/25 03/13/25 03/14/25 17:13 17:30 07:58 WBC 9.7 D 12.1 H RBC 3.10 L 2.78 L Hgb 9.4 L 8.6 L Hct 28.8 L 25.8 L MCV 93 93 MCH 30.3 30.9 MCHC 32.6 33.3 RDW Std Deviation 70.9 H 69.6 H Plt Count 192 236 D Neut % (Auto) 89 H 86 H Lymph % (Auto) 3 L 4 L [place] % (Auto) 8 9 Eos % (Auto) 0 0 Baso % (Auto) 0 0 Neut # (Auto) 8.6 H 10.4 H Lymph # (Auto) 0.3 L 0.5 L [place] # (Auto) 0.7 1.1 H Eos # (Auto) 0.0 0.0 Baso # (Auto) 0.0 0.0 Immature Gran # (Auto) 0.05 H 0.12 H Absolute Nucleated RBC 0.00 0.00 Immature Gran % 1 H 1 H Nucleated RBC % 0 0 Sodium 144 Potassium 3.7 Chloride 107 Carbon Dioxide 24.5 Anion Gap 13 BUN 34 H Creatinine 1.6 H Estim Creat Clear Calc 40.4 L eGFR 43 L BUN/Creatinine Ratio 21 H Glucose 158 H Calculated Osmolality 297 H Calcium 8.3 Corrected Calcium 9.1 Phosphorus 3.0 Magnesium 2.3 Total Bilirubin 0.9 AST 101 H ALT 63 H Alkaline Phosphatase 88 D Total Protein 5.3 L Albumin 3.0 L Globulin 2.3 Albumin/Globulin Ratio 1.3 Crossmatch See Detail ABG Interpretation ABG results: 03/05/25 03/09/25 03/12/25 13:17 23:55 15:20 ABG pH 7.45 7.46 H ABG pCO2 27 L 36 ABG pO2 122 H 88 D ABG HCO3 18 L 25 ABG O2 Saturation 100 H 99 H ABG Base Excess -5 L 1 VBG pH 7.39 VBG pCO2 36 VBG pO2 31 VBG Base Excess -3 03/12/25 15:53 ABG pH ABG pCO2 ABG pO2 ABG HCO3 ABG O2 Saturation ABG Base Excess VBG pH 7.49 VBG pCO2 34 L VBG pO2 94 H VBG Base Excess 2 Quality Measures Quality Measures none Advance care planning discussed with:: patient and spouse Assessment & Plan Assessment Current Active Medications: Generic Name Dose Route Start Last Admin Trade Name Freq PRN Reason Stop Dose Admin Acetaminophen 650 mg 03/05/25 15:28 03/11/25 01:34 Acetaminophen 325 Mg Tablet PO 04/04/25 15:27 650 mg Q6H PRN Administration Fever >101.5 or pain (1-3) Piperacillin/Tazobactam/Dextrose 3.375 g in 50 mls @ 12.5 mls/hr 03/10/25 10:33 03/14/25 05:51 Zosyn IV 03/17/25 10:32 12.5 mls/hr Q8HR CLAUDE Administration Amiodarone HCl/Dextrose 360 mg in 200 mls @ 16.667 mls/hr 03/13/25 16:18 03/14/25 12:03 Nexterone Ivpb IV 03/14/25 16:17 16.667 mls/hr .Q12H CLAUDE Administration Ipratropium [place] 0.5 mg 03/12/25 15:00 03/14/25 07:38 Ipratropium Rt 0.5 Mg/ 2.5 Ml Nebu INH 04/11/25 14:59 0.5 mg Q8HRRT CLAUDE Administration Labetalol HCl 10 mg 03/13/25 22:39 Labetalol Inj 5 Mg/Ml Vial 20 Ml IVP 04/12/25 09:59 Q4HR PRN Sbp > 170 or DBP > 120 Levalbuterol HCl 1.25 mg 03/12/25 14:00 03/14/25 07:38 Levalbuterol Rt 1.25 Mg/0.5 Ml Nebu INH 04/11/25 13:59 1.25 mg Q8HR CLAUDE Administration Ondansetron HCl 4 mg 03/05/25 13:06 Ondansetron Inj 2 Mg/Ml Inj 2 Ml IVP 04/04/25 13:05 Q4HR PRN NAUSEA OR VOMITING Pantoprazole Sodium 40 mg 03/12/25 12:45 03/14/25 10:30 Pantoprazole Inj 40 Mg Vial IVP 04/11/25 12:44 40 mg BID CLAUDE Administration Pharmacy Consult 1 each 03/14/25 05:23 Pharmacy Renal Dose Adjustment 1 Ea XX 04/13/25 05:22 PRN PRN CONSULT Sodium Chloride 3 ml 03/12/25 10:45 Sodium Chloride Rt Aleena 0.9% 3 Ml Nebu INH 04/11/25 10:44 PRN PRN SOLN Plan Devan Rios is an 79M pmhx significant for A-fib on Xarelto, hypertension, RA, PMR, and CKDIIIa who presented to [facility] ED on 03/05 for generalized weakness and inability to walk, admitted for upper and lower GIB, course complicated by ischemic CVAs, and fevers and AMS c/f bowel perforation. #Bowel perforation, serosal tear, cecum #status post cecum resection #Pneumoperitoneum c/f bowel perforation #Suspected SBO vs ileus Overnight on 03/11, patient's abdomen acutely distended and tense c/f SBO vs ileus. Repeat KUB showed high grade mechanical SBO pattern. Patient is unable to communicate if he is passing gas, AOx2 to person and time only. CTAP showed pneumoperitoneum, suspicious for ischemic bowel including right colon and small bowel, significantly distended small bowel loops consistent with obstruction Plan: - Hold all oral medications - Surgery Dr. Smith consulted, performed exploratory laparotomy, found serosal tear in cecum that was repaired - Continue vancomycin and piperacillin/tazobactam (03/10--) - NG tube removed 03/14 #Acute encephalopathy, likely multifactorial 2/2 #Aspiration pneumonia #Fever, improving Presented with fatigue that had sudden onset on 03/05 in the morning likely 2/2 symptomatic anemia. Rapid response x2 were called 03/08 and 03/10 for fever and acute AMS. Since, patient has had fluctuations of mental status return to baseline, then becoming altered. Patient had a fever on 03/08 initially, which has become more frequent over time. Tmax 102.4. Patient did have a sudden spike in WBC on second rapid response without leukocytosis, however this WBC quickly resolved back to baseline about 3 hours later. On 03/11 nursing recorded episode of vomiting, where patient likely aspirated as morning of 03/12, patient desaturated to 93% requiring 4L O2 oxymask. Acute encephalopathy likely multifactorial iso aspiration PNA and stroke. Fever ddx includes L arm cellulitis, meningitis, delayed nonhemolytic transfusion reaction, febrile nonhemolytic transfusion reaction, however improving on antibiotics. Dixon test neg, digoxin levels 0.7, folate and B12 wnl s/p B12 injection 03/09, T4 wnl, CRP and ESR wnl, cocci IgM and IgG neg, BCx and UCx NGTD Plan: - F/u thiamine, HSV ? Piperacillin/tazobactam (03/10--); vancomycin stopped 03/14, plan to discharge on Augmentin if patient stable - Start scheduled Duonebs q8h ? Neurology consulted, recommends EEG and possible LP ? Infectious disease consulted, appreciate recommendations ? Aspiration precautions elevate head of bed at 30 degrees - Patient passed swallow re-evaluation by speech therapy, recommends chopped diet #Ischemic CVA, embolic (frontal lobe, parietal lobe, basal ganglia, posterior left temporal lobe) #History of TIA #Transient aphasia Patient has hx of atrial fibrillation on Xarelto which was held on admission 03/05 due to GIB. Due to episodes of altered mental status starting 03/08, the patient had a code stroke called. CT head without contrast and CTA head and neck were negative for stroke. Neurology was consulted, and at the time CT head and CTA head and neck were negative for acute strokes. MRI was not recommended at that time due to concerns of an underlying metabolic encephalopathy. Received Xarelto 15 mg 03/10 and 03/11 03/11 MRI showed multiple embolic type acute infarcts in frontal, parietal lobes, basal ganglia and posterior left temporal lobe Plan: - Xarelto held, will start heparin gtt, plan to resume Xarelto upon discharge - Atorvastatin held iso suspected bowel perforation - Neurology consulted, recs appreciated #A-fib with RVR, rate not controlled, on Xarelto Patient has a history of atrial fibrillation and sees call taker Dr. Colon for management. Patient is currently on Xarelto and digoxin. Asked pharmacy about digoxin dosing and they confirmed 0.125 mg daily while patient's family states that the patient takes 0.125 mg Friday and Friday. Contacted Dr. Colon for confirmation, and he stated that the patient was okay taking 0.125 mg Friday. Patient's uncontrolled rate a-fib RVR is likely 2/2 presence of likely suspected SBO vs ileus CHADS-VASC score 4 (stroke risk 4.8% per year) HAS-BLED score 3 (bleed risk 5.8%, patient is at high risk for major bleeding) Plan: ? Stopped patient's home digoxin ? Amiodarone drip, called pharmacy extend to end 03/14, will transition to PO 03/14 - Per cardiology, PO diltiazem 30 mg QID, however held iso SBO and c/f bowel perforation - Plan for IV metoprolol 2.5 mg IVP if HR >130 and if SBP >120 and HR >60 ? Consulted cardiology, Dr. Colon, recs appreciated - Repeat EKG 03/13 - Will start heparin ggt in case patient has further bleeding at inscision site, plan to transition to Xarelto on discharge #Upper and lower GI bleed 2/2 #Angiodysplasias of GI tract #Symptomatic anemia (resolved) Patient was brought to ED due to generalized fatigue and difficulty waking on the morning of 03/05 with melena started 2-3 weeks ago. Admission H&H 12/01/16.2 s/p 2 prbc on 03/05 and 2 more pRBC on 03/07 with stabilization of H&H. Initial EGD showed angiodysplastic bleeding in gastric body and gastric fundus, requiring cautery and clipping. Repeat EGD 03/07, which showed no additional bleeding Colonoscopy planned for 03/08, delayed to 03/09, which showed moderate diverticulosis in sigmoid and descending colon, and multiple bleeding colonic angiodysplastic lesions that were treated with argon plasma coagulation Ddx for multiple angiodysplasias possibly secondary to subtherapeutic anticoagulation on Xarelto 15 mg instead of Xarelto 20 mg causing multiple emboli with possible embolisms to GI tract Plan: ? GI consulted, recs appreciated ? Patient to follow-up with Dr. Bauer, GI, and referral to perform capsule endoscopy #VANNA on CKD likely prerenal In the ED, the patient had a BUN of 85, creatinine of 2.1, and GFR of 31. On chart review, patient has CKDIII with baseline Cr 1.4-1.7. VANNA likely 2/2 acute loss of blood due to GI bleed, resulting in decreased blood flow to the kidneys, which resolved 03/09 03/12 Cr increased to 1.8, likely 2/2 to suspected SBO. Plan: - SBO treatment plan as above ? Renally dose medications ? Avoid nephrotoxic medications ? Will hold off on IV fluid hydration given mild heart failure congestion on repeat CXR #CHF (EF 55% 2024) Patient does not have a documented history of CHF, but patient takes furosemide 20 mg p.o. daily at home. Echocardiogram done on 04/30/2018 showed EF of 50% with moderate mitral regurgitation. Plan: ? Will hold patient's home furosemide given suspected SBO ? Strict ins and outs and daily weights ?Echocardiogram 03/11 showed negative bubble study, EF 55%, severely increased left atrial volume, aortic valve sclerosis without stenosis, mild mitral regurgitation, mild aortic regurgitation, mild tricuspid regurgitation, no thrombi. #Primary Hypertension Patient has a history of hypertension. Patient takes benazepril 40 mg daily and clonidine 0.2 mg 3 times daily at home. Plan: ? Will hold patient's home antihypertensives of benazepril, clonidine, furosemide ? Will monitor blood pressure closely DVT Prophylaxis: Heparin GI Prophylaxis: Protonix Bowel: N/A Diet: Clear liquids Justin: N/A Lines: Peripheral IV Antibiotics: Zosyn (03/10--) Code Status: FULL Reason for Hospitalization: GI bleed Other Barriers to Discharge: Heparin Patient plan of care was discussed with the senior resident Dr. Kelly and attending physician Dr. Singh Levine, PGY1 Attending Provider Attestation/Addendum I Nilson Winters MD reviewed the note and agree with the resident's assessment & plan with exceptions/additions as below. I have personally reviewed labs, imaging, home meds/prior records, examined the patient, formulated and discussed management plan with the IM team. An 79-year-old male with Hx of AF, HTN, CKD, RA hospitalized for severe symptomatic anemia requiring transfusions and noted to have gastrointestinal angiodysplasia s/p EGD and colonoscopy with argon laser ablation. Hospital course complicated by recurrent fevers, abdominal distention and altered mental status leading to further investigation revealing multiple acute embolic strokes, aspiration pneumonia/HCAP, ischemic colitis with small bowel obstruction & bowel perforation. He had exploratory laparotomy on 03/12/2025 with partial right hemicolectomy. Patient is requiring minimal supplemental oxygen via NC, with significant improvement in respiratory status, continue Zosyn and vancomycin empirically. Patient also noted to be in AF however rate is well-controlled, echocardiogram unremarkable. General surgery and speech therapy okay starting clear liquids and advance as tolerated, switch amiodarone to p.o. 200 mg twice daily, will start on high risk heparin drip for anticoagulation once neurology and general surgery agrees. Continue PT/OT therapies. If patient tolerates p.o. well and surgical site is healing will plan for discharge to a rehab facility.
--- NOTE | 2025-03-14 14:00 | PC.SS ---
Rounding Note: Patient is post-op day 2. Patient receiving IV antibiotics. Plan is to advance diet.
--- NOTE | 2025-03-14 14:23 | PD.RESPRO ---
Documentation for date of: 03/14/25 Subjective Subjective Interval history: Patient is an 79-year-old male with a past medical history of hypertension, hyperlipidemia, previous TIA (2018), atrial fibrillation home medication of Xarelto, history of polymyalgia rheumatica, and history of alcohol use disorder previous MRI in 2018 noted significant atrophy in the posterior fossa, BPH, and active smoker who was admitted for upper GI bleed now s/p colonoscopy and endoscopy-angiodysplastic lesion. MRI on (03/11/2025): noted multiple emoblic type infracts. 03/14/2025: Incision site continues to be partially open and currently gauze packing. No major bleeding reported. Patient went for ex lap on 03/12/2025, s/p resection of the cecum, ascending colon, and ilio ascending colostomy Day 2 secondary to perforated cecum. Patient was advanced to clear liquid diet per surgery recommendations. Holding off Xarelto and will transition to heparin per surgery recommendations. Patient waxes and wanes, patient is alert to self, location, and year, but unable to care on a full conversation. Patient unable to draw a clock. Exam Vital Signs Temp Pulse Resp BP Pulse Ox O2 Del Method O2 Flow Rate 97.0 F 98 20 157/118 H 94 L Room Air 2 03/14/25 12:00 03/14/25 12:03 03/14/25 12:00 03/14/25 12:03 03/14/25 12:00 03/14/25 12:03/14/25 08:00 Narrative Exam General Appearance: Alert & Oriented X3 but waxes and wanes, well-nourished male who is lying in bed in no acute distress HEENT: Skull symmetrical and atraumatic. Conjunctivae pale pink and moist. Pupils equal, round, reactive to light and accommodation (PERRL). External ear without lesion or discharge. Straight, nares patient, mucosa pink, no discharge. No thyroid nodule appreciated. No cervical lymphadenopathy. Cardio: Normal Rate and Rhythm with S1 and S2 heart sounds. No murmurs or extra heart sounds auscultated. No bruits on carotid auscultation. No peripheral edema or cyanosis. Lungs: Symmetric with good expansion. Chest and back non-tender. Breath sounds vesicular without crackles, wheezing or rhonchi Abdomen: mild-tenderness, left sided surgical niya that appear to be healing, free of discharge, with wound packing noted adjust to niya, Non-distended, Normal Reactive Bowel Sounds Neuro: Yes Alert, Yes cooperative, Yes oriented to person, Yes place, and Yes time. dysarthic. CN grossly intact. Upper motor strength 5/5 and Lower motor strength 5/5. Sensation intact. Objective Labs 03/16/25 05:24 03/16/25 05:24 Labs: Laboratory Results - last 24 hr 03/12/25 03/13/25 03/14/25 17:13 17:30 07:58 WBC 9.7 D 12.1 H RBC 3.10 L 2.78 L Hgb 9.4 L 8.6 L Hct 28.8 L 25.8 L MCV 93 93 MCH 30.3 30.9 MCHC 32.6 33.3 RDW Std Deviation 70.9 H 69.6 H Plt Count 192 236 D Neut % (Auto) 89 H 86 H Lymph % (Auto) 3 L 4 L [place] % (Auto) 8 9 Eos % (Auto) 0 0 Baso % (Auto) 0 0 Neut # (Auto) 8.6 H 10.4 H Lymph # (Auto) 0.3 L 0.5 L [place] # (Auto) 0.7 1.1 H Eos # (Auto) 0.0 0.0 Baso # (Auto) 0.0 0.0 Immature Gran # (Auto) 0.05 H 0.12 H Absolute Nucleated RBC 0.00 0.00 Immature Gran % 1 H 1 H Nucleated RBC % 0 0 Sodium 144 Potassium 3.7 Chloride 107 Carbon Dioxide 24.5 Anion Gap 13 BUN 34 H Creatinine 1.6 H Estim Creat Clear Calc 40.4 L eGFR 43 L BUN/Creatinine Ratio 21 H Glucose 158 H Calculated Osmolality 297 H Calcium 8.3 Corrected Calcium 9.1 Phosphorus 3.0 Magnesium 2.3 Total Bilirubin 0.9 AST 101 H ALT 63 H Alkaline Phosphatase 88 D Total Protein 5.3 L Albumin 3.0 L Globulin 2.3 Albumin/Globulin Ratio 1.3 Crossmatch See Detail ABG Interpretation ABG results: 03/05/25 03/09/25 03/12/25 13:17 23:55 15:20 ABG pH 7.45 7.46 H ABG pCO2 27 L 36 ABG pO2 122 H 88 D ABG HCO3 18 L 25 ABG O2 Saturation 100 H 99 H ABG Base Excess -5 L 1 VBG pH 7.39 VBG pCO2 36 VBG pO2 31 VBG Base Excess -3 03/12/25 15:53 ABG pH ABG pCO2 ABG pO2 ABG HCO3 ABG O2 Saturation ABG Base Excess VBG pH 7.49 VBG pCO2 34 L VBG pO2 94 H VBG Base Excess 2 Quality Measures Quality Measures none Advance care planning discussed with:: patient and spouse Assessment & Plan Assessment Current Active Medications: Generic Name Dose Route Start Last Admin Trade Name Freq PRN Reason Stop Dose Admin Acetaminophen 650 mg 03/05/25 15:28 03/11/25 01:34 Acetaminophen 325 Mg Tablet PO 04/04/25 15:27 650 mg Q6H PRN Administration Fever >101.5 or pain (1-3) Piperacillin/Tazobactam/Dextrose 3.375 g in 50 mls @ 12.5 mls/hr 03/10/25 10:33 03/14/25 13:22 Zosyn IV 03/17/25 10:32 12.5 mls/hr Q8HR CLAUDE Administration Amiodarone HCl/Dextrose 360 mg in 200 mls @ 16.667 mls/hr 03/13/25 16:18 03/14/25 12:03 Nexterone Ivpb IV 03/14/25 16:17 16.667 mls/hr .Q12H CLAUDE Administration Ipratropium [place] 0.5 mg 03/12/25 15:00 03/14/25 07:38 Ipratropium Rt 0.5 Mg/ 2.5 Ml Nebu INH 04/11/25 14:59 0.5 mg Q8HRRT CLAUDE Administration Labetalol HCl 10 mg 03/13/25 22:39 Labetalol Inj 5 Mg/Ml Vial 20 Ml IVP 04/12/25 09:59 Q4HR PRN Sbp > 170 or DBP > 120 Levalbuterol HCl 1.25 mg 03/12/25 14:00 03/14/25 07:38 Levalbuterol Rt 1.25 Mg/0.5 Ml Nebu INH 04/11/25 13:59 1.25 mg Q8HR CLAUDE Administration Ondansetron HCl 4 mg 03/05/25 13:06 Ondansetron Inj 2 Mg/Ml Inj 2 Ml IVP 04/04/25 13:05 Q4HR PRN NAUSEA OR VOMITING Pantoprazole Sodium 40 mg 03/12/25 12:45 03/14/25 10:30 Pantoprazole Inj 40 Mg Vial IVP 04/11/25 12:44 40 mg BID CLAUDE Administration Pharmacy Consult 1 each 03/14/25 05:23 Pharmacy Renal Dose Adjustment 1 Ea XX 04/13/25 05:22 PRN PRN CONSULT Sodium Chloride 3 ml 03/12/25 10:45 Sodium Chloride Rt Aleena 0.9% 3 Ml Nebu INH 04/11/25 10:44 PRN PRN SOLN Plan Patient is an 79-year-old male with a past medical history of hypertension, hyperlipidemia, previous TIA (2018), atrial fibrillation home medication of Xarelto, history of polymyalgia rheumatica, and history of alcohol use disorder previous MRI in 2018 noted significant atrophy in the posterior fossa, BPH, and active smoker. Corey was admitted on 03/05/2025 for acute blood loss anemia, symptomatic, likely secondary to upper GI bleed s/p EGD and colonoscopy. #Acute Encephloapthy, secondary to multiple emoblic-type acute infarcts. #History of TIA #History of Ischemic stroke, right basal ganglia #Aphasia #Generalized Weakness Patient presented to the emergency room with chief complain of altered mental status, slurred speech, blank stare, and generalized weakness. Patient has not returned to baseline since then. Patient continues to have difficulty word finding. Per at bedside, denied new medication, denied seizure like activity, denied head trauma. acute encephalopathy likely secondary to acute embolic stroke and likley underlying hospital delirium vs infectious cause as lactic acid continues to rise but edema from other sources no not be ruled out at this time vs transfusion reaction but no hematuria noted vs B12 deficiency vsWernicke's given continued use of alcohol use disorder and atrophy of brain noted on previous MRI, pending thiamine levels (2018). Diagnostics: MRI brain (03/11/2025): multiple tiny embolic type foci of restricted diffusion with week matching ADC signal deficits in the frontal parietal lobes basal ganglia and posterior left temporal lobe. Increased white matter signal moderate CT head (03/08/2025): Negative for acute hemorrhage. Old infarct in the right basal ganglia CTA Head/Neck: negative Blood cultures Negative B12: 94 (L) TSH 1.51 (03/06/2025) Lipid Panel (03/06/2025): Triglycerides 165, Cholesterol 58, lDL 11, HDL 14 ASCVD: not applicable given age Plan -Given resection, anticoagulation manageed by surgery team and primary team -Atorvastatin 40 mg PO HS, holding off Aspirin given recent acute blood loss anemia. -please avoid diphenhydramine and patient appears drowsy this evening. -Head of the bed at 30 degrees -Replace electrolytes as needed -Continue to monitor for signs of infection -Continue to follow blood cultures #Bowel perforation, serosal tear, cecum #status post cecum resection #Pneumoperitoneum c/f bowel perforation #Suspected SBO vs ileus #Sepsis, suspected #SIRs #Acute blood loss anemia, likely secondary to upper GI bleed #Angidysplasias SOFA 4 points #Atrial Fibrillation, on Amiodarone #Atrial Fibrillation, rvr, resolved. #VANNA on CKD #HLD #HTN #Pulmonary Vascular Congestion #Mild Concentric LV Hypertrophy #Smoker #Alcohol Use Disorder - The patient's plan was discussed with attending Dr. Guillermo Bryan MD PGY2 Internal Medicine Attending Provider Attestation/Addendum I personally have seen and examined the patient at the bedside and agreed with the residents findings, assessment and plan of care. Impression acute ischemic CVA now, with vascular dementia with fluctuating mental status Continue with anticoagulant therapy and start physical therapy when possible continue to monitor his hallucination
[2025-03-14 15:12] LABS: INR 1.0 (0.9-1.3); Partial Thromboplastin Time 25.7 Seconds (22.0-36.0); Prothrombin Time 11.2 Seconds (9.0-12.2)
[2025-03-14] MEDS: HEPARIN SOD INJ 5000 UNIT/ML VIAL 4000 UNIT IV (16:23)
[2025-03-14] MEDS: Heparin/D5w 25K 250 ML Ivpb 25,000 UNIT/250 ML BAG 10.004 UNIT IV (16:24)
--- NOTE | 2025-03-14 16:57 | ESPR_ITS ---
Documentation for date of: 03/14/25 Subjective Subjective Interval history: Case discussed with internal medicine team NGT is out Clear liquid diet started Patient can be started on the heparin Exam Vital Signs Temp Pulse Resp BP Pulse Ox O2 Del Method O2 Flow Rate 97.1 F 102 H 19 163/95 H 95 Room Air 2 03/14/25 16:00 03/14/25 16:00 03/14/25 16:00 03/14/25 16:00 03/14/25 16:00 03/14/25 16:00 03/14/25 08:00 Objective Labs 03/14/25 07:58 03/14/25 07:58 Labs: Laboratory Results - last 24 hr 03/13/25 03/14/25 03/14/25 17:30 07:58 14:25 WBC 9.7 D 12.1 H RBC 3.10 L 2.78 L Hgb 9.4 L 8.6 L Hct 28.8 L 25.8 L MCV 93 93 MCH 30.3 30.9 MCHC 32.6 33.3 RDW Std Deviation 70.9 H 69.6 H Plt Count 192 236 D Neut % (Auto) 89 H 86 H Lymph % (Auto) 3 L 4 L [place] % (Auto) 8 9 Eos % (Auto) 0 0 Baso % (Auto) 0 0 Neut # (Auto) 8.6 H 10.4 H Lymph # (Auto) 0.3 L 0.5 L [place] # (Auto) 0.7 1.1 H Eos # (Auto) 0.0 0.0 Baso # (Auto) 0.0 0.0 Immature Gran # (Auto) 0.05 H 0.12 H Absolute Nucleated RBC 0.00 0.00 Immature Gran % 1 H 1 H Nucleated RBC % 0 0 PT 11.2 INR 1.0 APTT 25.7 D Sodium 144 Potassium 3.7 Chloride 107 Carbon Dioxide 24.5 Anion Gap 13 BUN 34 H Creatinine 1.6 H Estim Creat Clear Calc 40.4 L eGFR 43 L BUN/Creatinine Ratio 21 H Glucose 158 H Calculated Osmolality 297 H Calcium 8.3 Corrected Calcium 9.1 Phosphorus 3.0 Magnesium 2.3 Total Bilirubin 0.9 AST 101 H ALT 63 H Alkaline Phosphatase 88 D Total Protein 5.3 L Albumin 3.0 L Globulin 2.3 Albumin/Globulin Ratio 1.3 Impressions Impression: Cecal perforation status post exploratory laparotomy Start clear liquid diet and heparin can be started ABG Interpretation ABG results: 03/05/25 03/09/25 03/12/25 13:17 23:55 15:20 ABG pH 7.45 7.46 H ABG pCO2 27 L 36 ABG pO2 122 H 88 D ABG HCO3 18 L 25 ABG O2 Saturation 100 H 99 H ABG Base Excess -5 L 1 VBG pH 7.39 VBG pCO2 36 VBG pO2 31 VBG Base Excess -3 03/12/25 15:53 ABG pH ABG pCO2 ABG pO2 ABG HCO3 ABG O2 Saturation ABG Base Excess VBG pH 7.49 VBG pCO2 34 L VBG pO2 94 H VBG Base Excess 2 Assessment & Plan A&P Narrative ams mikhail htn abd perf 79 yoa I can check in wed pm if still here. if home on po agent that is ok. stop it trial suggested 5d post surgery ok for soilage pj if washout done. rx is empiric for now as no cx from non sterile sites noted. all sterile sites neg. ordered w/u for ams for am. stopped the vanco as it is on empirically and there is some mikhail. Time Spent With Patient Time: Total time spent is greater than 50% in coordination of care (as documented) at patient's floor/unit and/or counseling patient:
[2025-03-14] MEDS: LABETALOL INJ 5 MG/ML VIAL 20 ML 10 MG IVP (20:56)
--- NOTE | 2025-03-14 22:09 | PC.NURSE ---
MARCO Zavaleta contacted Dr. Davis [phone] because Dr. Kelly put an order for Amiodarone PO, but the patient is on an Amidoarone drip. Dr. Davis said to hold the Amiodarone PO for now.
[2025-03-14 22:53] LABS: Partial Thromboplastin Time 31.3 Seconds (22.0-36.0)
[2025-03-14] MEDS: HEPARIN SOD INJ 5000 UNIT/ML VIAL 4000 UNIT IVP (23:18)
[2025-03-15] VITALS (13 sets, daily range): BP systolic 148–166; BP diastolic 96–108; PULSE 80–108; RESP 16–96; TEMP 35.9–36.3; O2SAT 90–101; BMI 25.7
[2025-03-15] MEDS: PIPER/TAZO 3.375 GM PREMIX 3.375 G/50 ML BAG IV ×3 (05:03→21:59)
[2025-03-15] MEDS: IPRATROPIUM RT 0.5 MG/ 2.5 ML NEBU INH ×3 (06:11→22:43)
[2025-03-15] MEDS: LEVALBUTEROL RT 1.25 MG/0.5 ML NEBU INH ×3 (06:11→22:40)
[2025-03-15 06:41] LABS: Basophils # (Auto) 0.0 Thou/mm3 (0.0-0.2); Basophils % (Auto) 0 % (0-2.5); Eosinophils # (Auto) 0.1 Thou/mm3 (0.0-0.5); Eosinophils % (Auto) 1 % (0-10); Hematocrit 26.9 % (41.0-53.0); Immature Granulocytes Auto 0.17 Thou/mm3 (0.00-0.00); Lymphocytes # (Auto) 0.7 Thou/mm3 (1.0-4.8); Lymphocytes % (Auto) 8 % (10-50); Mean Corpuscular HGB Conc 31.6 g/dl (31.0-37.0); Mean Corpuscular Hemoglobin 29.5 pg (25.0-35.0); Mean Corpuscular Volume 93 fL (80-100); Monocytes # (Auto) 0.9 Thou/mm3 (0.0-0.8); Monocytes % (Auto) 10 % (0-12); Neutrophils # (Auto) 7.7 Thou/mm3 (1.8-7.7); Neutrophils % (Auto) 80 % (37-80); Nucleated Red Blood Cell # 0.00 Thou/mm3 (0.00-0.00); Nucleated Red Blood Cell % 0 /100 WBC (0); Platelet Count 261 Thou/mm3 (140-440); RDW Standard Deviation 72.9 fL (35.1-43.9); Red Blood Count 2.88 Miln/mm3 (4.50-5.90); White Blood Count 9.7 Thou/mm3 (3.8-10.6)
[2025-03-15 06:52] LABS: Hemoglobin 8.5 g/dL (13.5-16.0)
[2025-03-15 06:58] LABS: Partial Thromboplastin Time 43.0 Seconds (22.0-36.0)
[2025-03-15 07:02] LABS: Ammonia < 10 uMol/L (11-32)
[2025-03-15 07:19] LABS: Syphilis Nonreactive (Nonreactive)
[2025-03-15 07:23] LABS: Folate 11.81 ng/mL (>5.38); Vitamin B12 1484 pg/mL (211-911)
[2025-03-15 07:29] LABS: Alanine Aminotransferase 55 U/L (10-49); Albumin, Serum 2.9 gm/dL (3.4-4.8); Albumin/Globulin Ratio 1.3 (1.2-2.2); Alkaline Phosphatase 98 U/L (46-116); Anion Gap 13 (7-16); Aspartate Amino Transferase 72 U/L (0-34); BUN/Creatinine Ratio 16 Ratio (12-20); Bilirubin,Total 1.0 mg/dL (0.3-1.2); Blood Urea Nitrogen 24 mg/dL (9-23); Calcium 8.6 mg/dL (8.3-10.6); Calcium (Corrected) 9.5 mg/dL (8.5-10.1); Carbon Dioxide 22.0 mMol/L (20.0-31.0); Chloride 109 mMol/L (98-107); Creatinine (Component) 1.5 mg/dL (0.6-1.3); Estimated Creatinine Clearance 43.1 mL/min (>60); Globulin 2.3 gm/dL (2.3-3.5); Glucose 138 mg/dL (74-106); Magnesium 2.0 mg/dL (1.6-2.6); Osmolality,Calculated 292 (275-295); Phosphorous 2.9 mg/dL (2.4-5.1); Potassium 3.7 mMol/L (3.4-5.1); Sodium 144 mMol/L (136-145); Thyroid Stimulating Hormone 1.94 uIU/mL (0.55-4.78); Total Protein 5.2 gm/dL (5.7-8.2); eGFR 47 See Note
[2025-03-15] MEDS: AMIODARONE HCL 200 MG TABLET PO ×2 (08:08→21:59)
--- NOTE | 2025-03-15 08:37 | PD.IMPROG ---
Documentation for date of: 03/15/25 Subjective Subjective Interval history: Patient's status post bowel surgery Rate for the atrial fibrillation Currently hemodynamic stable Currently continuing on p.o. amiodarone Exam Vital Signs Temp Pulse Resp BP Pulse Ox O2 Del Method O2 Flow Rate 97.4 F 89 18 166/108 H 94 L Room Air 2 03/15/25 08:00 03/15/25 08:08 03/15/25 08:00 03/15/25 08:08 03/15/25 08:00 03/15/25 08:00 03/14/25 08:00 Routine HEENT Exam Head: Present normocephalic and atraumatic Eye: Present EOMI and PERRL ENT: Present mucous membranes moist Routine Neck Exam Neck: Present supple and trachea midline Routine Respiratory Exam Respiratory: Present chest non-tender, lungs clear, normal breath sounds and no resp distress Routine Cardiovascular Exam Cardiovascular: Present RRR Routine Abdominal Exam Abdominal: Present soft and normoactive bowel sounds Routine Extremities Exam Extremities: Present full ROM Routine Skin Exam Skin: Present intact, dry and warm Objective Labs 03/15/25 06:14 03/15/25 06:14 Labs: Laboratory Results - last 24 hr 03/14/25 03/14/25 03/14/25 07:58 14:25 22:13 WBC 12.1 H RBC 2.78 L Hgb 8.6 L Hct 25.8 L MCV 93 MCH 30.9 MCHC 33.3 RDW Std Deviation 69.6 H Plt Count 236 D Neut % (Auto) 86 H Lymph % (Auto) 4 L [place] % (Auto) 9 Eos % (Auto) 0 Baso % (Auto) 0 Neut # (Auto) 10.4 H Lymph # (Auto) 0.5 L [place] # (Auto) 1.1 H Eos # (Auto) 0.0 Baso # (Auto) 0.0 Immature Gran # (Auto) 0.12 H Absolute Nucleated RBC 0.00 Immature Gran % 1 H Nucleated RBC % 0 PT 11.2 INR 1.0 APTT 25.7 D 31.3 Sodium 144 Potassium 3.7 Chloride 107 Carbon Dioxide 24.5 Anion Gap 13 BUN 34 H Creatinine 1.6 H Estim Creat Clear Calc 40.4 L eGFR 43 L BUN/Creatinine Ratio 21 H Glucose 158 H Calculated Osmolality 297 H Calcium 8.3 Corrected Calcium 9.1 Phosphorus 3.0 Magnesium 2.3 Total Bilirubin 0.9 AST 101 H ALT 63 H Alkaline Phosphatase 88 D Ammonia Total Protein 5.3 L Albumin 3.0 L Globulin 2.3 Albumin/Globulin Ratio 1.3 Vitamin B12 1484 H Folate 11.81 TSH Syphilis Serology 03/15/25 06:14 WBC 9.7 RBC 2.88 L Hgb 8.5 L Hct 26.9 L MCV 93 MCH 29.5 MCHC 31.6 RDW Std Deviation 72.9 H Plt Count 261 Neut % (Auto) 80 Lymph % (Auto) 8 L [place] % (Auto) 10 Eos % (Auto) 1 Baso % (Auto) 0 Neut # (Auto) 7.7 Lymph # (Auto) 0.7 L [place] # (Auto) 0.9 H Eos # (Auto) 0.1 Baso # (Auto) 0.0 Immature Gran # (Auto) 0.17 H Absolute Nucleated RBC 0.00 Immature Gran % 2 H Nucleated RBC % 0 PT INR APTT 43.0 H D Sodium 144 Potassium 3.7 Chloride 109 H Carbon Dioxide 22.0 Anion Gap 13 BUN 24 H Creatinine 1.5 H Estim Creat Clear Calc 43.1 L eGFR 47 L BUN/Creatinine Ratio 16 Glucose 138 H Calculated Osmolality 292 Calcium 8.6 Corrected Calcium 9.5 Phosphorus 2.9 Magnesium 2.0 Total Bilirubin 1.0 AST 72 H ALT 55 H Alkaline Phosphatase 98 Ammonia < 10 L Total Protein 5.2 L Albumin 2.9 L Globulin 2.3 Albumin/Globulin Ratio 1.3 Vitamin B12 Folate TSH 1.94 Syphilis Serology Nonreactive ABG Interpretation ABG results: 03/05/25 03/09/25 03/12/25 13:17 23:55 15:20 ABG pH 7.45 7.46 H ABG pCO2 27 L 36 ABG pO2 122 H 88 D ABG HCO3 18 L 25 ABG O2 Saturation 100 H 99 H ABG Base Excess -5 L 1 VBG pH 7.39 VBG pCO2 36 VBG pO2 31 VBG Base Excess -3 03/12/25 15:53 ABG pH ABG pCO2 ABG pO2 ABG HCO3 ABG O2 Saturation ABG Base Excess VBG pH 7.49 VBG pCO2 34 L VBG pO2 94 H VBG Base Excess 2 Assessment & Plan A&P Narrative Status post bowel surgery stable hemodynamic continue current treatment postop care p.o. started Time Spent With Patient Time: Total time spent is greater than 50% in coordination of care (as documented) at patient's floor/unit and/or counseling patient:
[2025-03-15] MEDS: HEPARIN SOD INJ 5000 UNIT/ML VIAL 2650 UNIT IV (09:33)
--- NOTE | 2025-03-15 09:36 | ESPR_ITS ---
<Statement entered by Nilson Winters MD - 03/20/25 18:07> I Nilson Winters MD reviewed the note and agree with the resident's assessment & plan with modifications/additions/exceptions as below. I have personally reviewed labs, imaging, home meds/prior records, examined the patient, formulated and discussed management plan with the IM team. <Statement entered by Jessica Kelly MD - 03/15/25 15:09> Patient was seen and examined at bedside. I agree on the assessment and plan on this note as documented by resident PGY1. 79-year-old male with past medical history as below, per surgery continue full liquid diet, will hold off on advancing diet for now. Was seen by ID, recommends continuing Zosyn for now. Transition to amiodarone 200 mg p.o. twice daily, will consider adding beta-zahira/calcium channel zahira as needed for A-fib RVR, will continue heparin drip for now, will hold off on transitioning to Xarelto for now. Will hold off on resuming Carafate and Maalox for now, once patient tolerating diet better will plan on resuming. Patient currently looks euvolemic, no indication for diuresis for now. Disposition telemetry, will continue to monitor. Case discussed with attending Dr. Jessica Kelly MD PGY-2 Documentation for date of: 03/15/25 Subjective Subjective Interval history: Overnight events: No acute events overnight. Patient was seen and examined at bedside. AM vitals and labs reviewed. Patient was awake and alert, oriented to person, place, and time. No major complaints at this time other than wanting to leave. Mentation seems to have improved compared to yesterday. Patient did have a low temp of 96.6, but repeat temperature by nursing staff showed 97.4 this morning. Vancomycin was recommended to stop by ID due to completion of course. Patient is currently on just Zosyn. Will wait for ID consult for further antibiotic recommendations. Patient is currently on full liquid diet. Pending recommendations from general surgery to advance diet. Patient has passed speech evaluation. Amiodarone drip completed yesterday, transitioned patient to amiodarone 200 mg twice daily. Review of systems otherwise negative except for what is mentioned above. Exam Vital Signs Temp Pulse Resp BP Pulse Ox O2 Del Method O2 Flow Rate 97.4 F 89 18 166/108 H 94 L Room Air 2 03/15/25 08:00 03/15/25 08:08 03/15/25 08:00 03/15/25 08:08 03/15/25 08:00 03/15/25 08:00 03/14/25 08:00 Narrative Exam Physical Exam: General: Alert, no acute distress. Skin: Warm, intact, no obvious rash. Head: Normocephalic, atraumatic. Eye: Normal conjunctiva, PERRL. Cardiovascular: Regular rate and rhythm, soft systolic murmur best heard over tricuspid region, +S1/S2. Respiratory: Lungs are clear to auscultation, respirations unlabored, no crackles, no wheezing. Gastrointestinal: Soft, nontender, non-distended. No guarding or rebound tenderness. Extremities: No edema, no cyanosis, no clubbing. Left arm slightly swollen, non- tender, and dark discoloring present. Neuro: No focal deficits observed. Conversant, moving all extremities. No overt cerebellar signs/incoordination. Psychiatric: Cooperative, appropriate affect. Objective Labs 03/15/25 06:14 03/15/25 06:14 Labs: Laboratory Results - last 24 hr 03/14/25 03/14/25 03/14/25 07:58 14:25 22:13 WBC RBC Hgb Hct MCV MCH MCHC RDW Std Deviation Plt Count Neut % (Auto) Lymph % (Auto) [place] % (Auto) Eos % (Auto) Baso % (Auto) Neut # (Auto) Lymph # (Auto) [place] # (Auto) Eos # (Auto) Baso # (Auto) Immature Gran # (Auto) Absolute Nucleated RBC Immature Gran % Nucleated RBC % PT 11.2 INR 1.0 APTT 25.7 D 31.3 Sodium 144 Potassium 3.7 Chloride 107 Carbon Dioxide 24.5 Anion Gap 13 BUN 34 H Creatinine 1.6 H Estim Creat Clear Calc 40.4 L eGFR 43 L BUN/Creatinine Ratio 21 H Glucose 158 H Calculated Osmolality 297 H Calcium 8.3 Corrected Calcium 9.1 Phosphorus 3.0 Magnesium 2.3 Total Bilirubin 0.9 AST 101 H ALT 63 H Alkaline Phosphatase 88 D Ammonia Total Protein 5.3 L Albumin 3.0 L Globulin 2.3 Albumin/Globulin Ratio 1.3 Vitamin B12 1484 H Folate 11.81 TSH Syphilis Serology 03/15/25 06:14 WBC 9.7 RBC 2.88 L Hgb 8.5 L Hct 26.9 L MCV 93 MCH 29.5 MCHC 31.6 RDW Std Deviation 72.9 H Plt Count 261 Neut % (Auto) 80 Lymph % (Auto) 8 L [place] % (Auto) 10 Eos % (Auto) 1 Baso % (Auto) 0 Neut # (Auto) 7.7 Lymph # (Auto) 0.7 L [place] # (Auto) 0.9 H Eos # (Auto) 0.1 Baso # (Auto) 0.0 Immature Gran # (Auto) 0.17 H Absolute Nucleated RBC 0.00 Immature Gran % 2 H Nucleated RBC % 0 PT INR APTT 43.0 H D Sodium 144 Potassium 3.7 Chloride 109 H Carbon Dioxide 22.0 Anion Gap 13 BUN 24 H Creatinine 1.5 H Estim Creat Clear Calc 43.1 L eGFR 47 L BUN/Creatinine Ratio 16 Glucose 138 H Calculated Osmolality 292 Calcium 8.6 Corrected Calcium 9.5 Phosphorus 2.9 Magnesium 2.0 Total Bilirubin 1.0 AST 72 H ALT 55 H Alkaline Phosphatase 98 Ammonia < 10 L Total Protein 5.2 L Albumin 2.9 L Globulin 2.3 Albumin/Globulin Ratio 1.3 Vitamin B12 Folate TSH 1.94 Syphilis Serology Nonreactive ABG Interpretation ABG results: 03/05/25 03/09/25 03/12/25 13:17 23:55 15:20 ABG pH 7.45 7.46 H ABG pCO2 27 L 36 ABG pO2 122 H 88 D ABG HCO3 18 L 25 ABG O2 Saturation 100 H 99 H ABG Base Excess -5 L 1 VBG pH 7.39 VBG pCO2 36 VBG pO2 31 VBG Base Excess -3 03/12/25 15:53 ABG pH ABG pCO2 ABG pO2 ABG HCO3 ABG O2 Saturation ABG Base Excess VBG pH 7.49 VBG pCO2 34 L VBG pO2 94 H VBG Base Excess 2 Quality Measures Quality Measures none Advance care planning discussed with:: patient Assessment & Plan Assessment Current Active Medications: Generic Name Dose Route Start Last Admin Trade Name Freq PRN Reason Stop Dose Admin Acetaminophen 650 mg 03/05/25 15:28 03/11/25 01:34 Acetaminophen 325 Mg Tablet PO 04/04/25 15:27 650 mg Q6H PRN Administration Fever >101.5 or pain (1-3) Amiodarone HCl 200 mg 03/14/25 21:30 03/15/25 08:08 Amiodarone Hcl 200 Mg Tablet PO 04/13/25 21:29 200 mg BID CLAUDE Administration Piperacillin/Tazobactam/Dextrose 3.375 g in 50 mls @ 12.5 mls/hr 03/10/25 10:33 03/15/25 05:03 Zosyn IV 03/17/25 10:32 12.5 mls/hr Q8HR CLAUDE Administration Heparin Sodium/Dextrose 25,000 unit in 250 mls @ 10.004 mls/hr 03/14/25 16:00 03/14/25 23:21 Heparin In D5w Ivpb IV 03/28/25 15:59 15.35 units/kg/hr .Q24H CLAUDE 13.529 mls/hr Titration Protocol 11.35 UNITS/KG/HR Ipratropium [place] 0.5 mg 03/12/25 15:00 03/14/25 23:05 Ipratropium Rt 0.5 Mg/ 2.5 Ml Nebu INH 04/11/25 14:59 0.5 mg Q8HRRT CLAUDE Administration Labetalol HCl 10 mg 03/13/25 22:39 03/14/25 20:56 Labetalol Inj 5 Mg/Ml Vial 20 Ml IVP 04/12/25 09:59 10 mg Q4HR PRN Administration Sbp > 170 or DBP > 120 Levalbuterol HCl 1.25 mg 03/12/25 14:00 03/15/25 06:11 Levalbuterol Rt 1.25 Mg/0.5 Ml Nebu INH 04/11/25 13:59 1.25 mg Q8HR CLAUDE Administration Ondansetron HCl 4 mg 03/05/25 13:06 Ondansetron Inj 2 Mg/Ml Inj 2 Ml IVP 04/04/25 13:05 Q4HR PRN NAUSEA OR VOMITING Pantoprazole Sodium 40 mg 03/12/25 12:45 03/15/25 08:10 Pantoprazole Inj 40 Mg Vial IVP 04/11/25 12:44 40 mg BID CLAUDE Administration Pharmacy Consult 1 each 03/14/25 05:23 Pharmacy Renal Dose Adjustment 1 Ea XX 04/13/25 05:22 PRN PRN CONSULT Sodium Chloride 3 ml 03/12/25 10:45 Sodium Chloride Rt Aleena 0.9% 3 Ml Nebu INH 04/11/25 10:44 PRN PRN SOLN Plan Devan Rios is an 79M pmhx significant for A-fib on Xarelto, hypertension, RA, PMR, and CKDIIIa who presented to [facility] ED on 03/05 for generalized weakness and inability to walk, admitted for upper and lower GIB, course complicated by ischemic CVAs, and fevers and AMS c/f bowel perforation. #Bowel perforation, serosal tear, cecum #status post cecum resection #Pneumoperitoneum c/f bowel perforation #Suspected SBO vs ileus Overnight on 03/11, patient's abdomen acutely distended and tense c/f SBO vs ileus. Repeat KUB showed high grade mechanical SBO pattern. Patient is unable to communicate if he is passing gas, AOx2 to person and time only. CTAP showed pneumoperitoneum, suspicious for ischemic bowel including right colon and small bowel, significantly distended small bowel loops consistent with obstruction Plan: - Hold all oral medications - General surgery Dr. Smith consulted, performed exploratory laparotomy, found serosal tear in cecum, that was repaired with resection of the cecum and the ascending colon and ilio ascending colostomy - Continue full liquid diet as recommended by general surgery to provide bowel rest, pending recommendations from general surgery on advancing diet - Continue piperacillin/tazobactam (03/10--) #Acute encephalopathy, likely multifactorial 2/2 #Aspiration pneumonia #Fever, improving Presented with fatigue that had sudden onset on 03/05 in the morning likely 2/2 symptomatic anemia. Rapid response x2 were called 03/08 and 03/10 for fever and acute AMS. Since, patient has had fluctuations of mental status return to baseline, then becoming altered. Patient had a fever on 03/08 initially, which has become more frequent over time. Tmax 102.4. Patient did have a sudden spike in WBC on second rapid response without leukocytosis, however this WBC quickly resolved back to baseline about 3 hours later. On 03/11 nursing recorded episode of vomiting, where patient likely aspirated as morning of 03/12, patient desaturated to 93% requiring 4L O2 oxymask. Acute encephalopathy likely multifactorial iso aspiration PNA and stroke. Fever ddx includes L arm cellulitis, meningitis, delayed nonhemolytic transfusion reaction, febrile nonhemolytic transfusion reaction, however improving on antibiotics. Dixon test neg, digoxin levels 0.7, folate and B12 wnl s/p B12 injection 03/09, T4 wnl, CRP and ESR wnl, cocci IgM and IgG neg, BCx and UCx NGTD Plan: - F/u thiamine, HSV - Piperacillin/tazobactam (03/10--); vancomycin stopped 03/14, plan to discharge on Augmentin if patient stable - Start scheduled Duonebs q8h - Neurology consulted, recommends EEG and possible LP - Infectious disease consulted, appreciate recommendations - Aspiration precautions elevate head of bed at 30 degrees - Patient passed swallow re-evaluation by speech therapy, recommends chopped diet #Ischemic CVA, embolic (frontal lobe, parietal lobe, basal ganglia, posterior left temporal lobe) #History of TIA #Transient aphasia Patient has hx of atrial fibrillation on Xarelto which was held on admission 03/05 due to GIB. Due to episodes of altered mental status starting 03/08, the patient had a code stroke called. CT head without contrast and CTA head and neck were negative for stroke. Neurology was consulted, and at the time CT head and CTA head and neck were negative for acute strokes. MRI was not recommended at that time due to concerns of an underlying metabolic encephalopathy. 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 Patient is currently on Xarelto and digoxin. Asked pharmacy about digoxin dosing and they confirmed 0.125 mg daily while patient's family states that the patient takes 0.125 mg Friday and Friday. Contacted Dr. Colon for confirmation, and he stated that the patient was okay taking 0.125 mg Friday. Patient's uncontrolled rate a-fib RVR is likely 2/2 presence of likely suspected SBO vs ileus CHADS-VASC score 4 (stroke risk 4.8% per year) HAS-BLED score 3 (bleed risk 5.8%, patient is at high risk for major bleeding) Plan: - Stopped patient's home digoxin - Consulted cardiology, Dr. Colon, recs appreciated - Amiodarone 200mg BID - Per cardiology, PO diltiazem 30 mg QID, however held iso SBO and c/f bowel perforation - Plan for IV metoprolol 2.5 mg IVP if HR >130 and if SBP >120 and HR >60 - Repeat EKG 03/13 - Will start heparin ggt in case patient has further bleeding at inscision site, plan to transition to Xarelto on discharge #Upper and lower GI bleed 2/2 #Angiodysplasias of GI tract #Symptomatic anemia (resolved) Patient was brought to ED due to generalized fatigue and difficulty waking on the morning of 03/05 with melena started 2-3 weeks ago. Admission H&H 12/01/16.2 s/p 2 prbc on 03/05 and 2 more pRBC on 03/07 with stabilization of H&H. Initial EGD showed angiodysplastic bleeding in gastric body and gastric fundus, requiring cautery and clipping. Repeat EGD 03/07, which showed no additional bleeding Colonoscopy planned for 03/08, delayed to 03/09, which showed moderate diverticulosis in sigmoid and descending colon, and multiple bleeding colonic angiodysplastic lesions that were treated with argon plasma coagulation Ddx for multiple angiodysplasias possibly secondary to subtherapeutic anticoagulation on Xarelto 15 mg instead of Xarelto 20 mg causing multiple emboli with possible embolisms to GI tract Plan: ? GI consulted, recs appreciated ? Patient to follow-up with Dr. Bauer, GI, and referral to perform capsule endoscopy #VANNA on CKD likely prerenal In the ED, the patient had a BUN of 85, creatinine of 2.1, and GFR of 31. On chart review, patient has CKDIII with baseline Cr 1.4-1.7. VANNA likely 2/2 acute loss of blood due to GI bleed, resulting in decreased blood flow to the kidneys, which resolved 03/09 03/12 Cr increased to 1.8, likely 2/2 to suspected SBO. Plan: - SBO treatment plan as above ? Renally dose medications ? Avoid nephrotoxic medications ? Will hold off on IV fluid hydration given mild heart failure congestion on repeat CXR #CHF (EF 55% 2024) Patient does not have a documented history of CHF, but patient takes furosemide 20 mg p.o. daily at home. Echocardiogram done on 04/30/2018 showed EF of 50% with moderate mitral regurgitation. Plan: ? Will hold patient's home furosemide given suspected SBO ? Strict ins and outs and daily weights ? Echocardiogram 03/11 showed negative bubble study, EF 55%, severely increased left atrial volume, aortic valve sclerosis without stenosis, mild mitral regurgitation, mild aortic regurgitation, mild tricuspid regurgitation, no thrombi. #Primary Hypertension Patient has a history of hypertension. Patient takes benazepril 40 mg daily and clonidine 0.2 mg 3 times daily at home. Plan: ? Will hold patient's home antihypertensives of benazepril, clonidine, furosemide ? Will monitor blood pressure closely DVT Prophylaxis: Heparin GI Prophylaxis: Protonix Bowel: N/A Diet: Clear liquids Justin: N/A Lines: Peripheral IV Antibiotics: Zosyn (03/10--) Code Status: FULL Reason for Hospitalization: GI bleed Other Barriers to Discharge: Post-op recovery Patient plan of care was discussed with the senior resident Dr. Kelly and attending physician Dr. Singh Levine, PGY1
[2025-03-15] MEDS: SODIUM CHLORIDE 0.9% 1000 ML 1,000 ML 100 ML IV ×2 (11:00→21:37)
[2025-03-15] MEDS: Heparin/D5w 25K 250 ML Ivpb 25,000 UNIT/250 ML BAG 15.292 UNIT IV (12:16)
--- NOTE | 2025-03-15 14:40 | ESPR_ITS ---
Documentation for date of: 03/15/25 Subjective Subjective Interval history: Patient is an 79-year-old male with a past medical history of hypertension, hyperlipidemia, previous TIA (2018), atrial fibrillation home medication of Xarelto, history of polymyalgia rheumatica, and history of alcohol use disorder previous MRI in 2018 noted significant atrophy in the posterior fossa, BPH, and active smoker who was admitted for upper GI bleed now s/p colonoscopy and endoscopy-angiodysplastic lesion. MRI on (03/11/2025): noted multiple emoblic type infracts. 03/14/2025: Incision site continues to be partially open and currently gauze packing. No major bleeding reported. Patient went for ex lap on 03/12/2025, s/p resection of the cecum, ascending colon, and ilio ascending colostomy Day 2 secondary to perforated cecum. Patient was advanced to clear liquid diet per surgery recommendations. Holding off Xarelto and will transition to heparin per surgery recommendations. Patient waxes and wanes, patient is alert to self, location, and year, but unable to care on a full conversation. Patient unable to draw a clock. 03/15/2025: Patient continues to wax and wane, currently alert and orientated X 1. Patient is now on clear liquid diet, tolerating diet well. Patient becomes anxious when not present in room. Patient likely has underlying hospital delirium given increased confusion. Patient remains off Xarelto and Aspirin. Exam Vital Signs Temp Pulse Resp BP Pulse Ox O2 Del Method O2 Flow Rate 97.4 F 89 18 166/108 H 94 L Room Air 2 03/15/25 08:00 03/15/25 08:08 03/15/25 08:00 03/15/25 08:08 03/15/25 08:00 03/15/25 08:00 03/14/25 08:00 Narrative Exam General Appearance: Alert & Oriented X 1 but waxes and wanes, well-nourished male who is lying in bed in no acute distress HEENT: Skull symmetrical and atraumatic. Conjunctivae pale pink and moist. Pupils equal, round, reactive to light and accommodation (PERRL). External ear without lesion or discharge. Straight, nares patient, mucosa pink, no discharge. No thyroid nodule appreciated. No cervical lymphadenopathy. Cardio: Normal Rate and Rhythm with S1 and S2 heart sounds. No murmurs or extra heart sounds auscultated. No bruits on carotid auscultation. No peripheral edema or cyanosis. Lungs: Symmetric with good expansion. Chest and back non-tender. Breath sounds vesicular without crackles, wheezing or rhonchi Abdomen: mild-tenderness, left sided surgical niya that appear to be healing, free of discharge, with wound packing noted adjust to niya, Non-distended, Normal Reactive Bowel Sounds Neuro: Yes Alert, Yes cooperative, Yes oriented to person, NO place, and NO time. dysarthic. CN grossly intact. Upper motor strength 5/5 and Lower motor strength 5/5. Sensation intact. Objective Labs 03/16/25 05:24 03/16/25 05:24 Labs: Laboratory Results - last 24 hr 03/14/25 03/14/25 03/15/25 14:25 22:13 06:14 WBC 9.7 RBC 2.88 L Hgb 8.5 L Hct 26.9 L MCV 93 MCH 29.5 MCHC 31.6 RDW Std Deviation 72.9 H Plt Count 261 Neut % (Auto) 80 Lymph % (Auto) 8 L [place] % (Auto) 10 Eos % (Auto) 1 Baso % (Auto) 0 Neut # (Auto) 7.7 Lymph # (Auto) 0.7 L [place] # (Auto) 0.9 H Eos # (Auto) 0.1 Baso # (Auto) 0.0 Immature Gran # (Auto) 0.17 H Absolute Nucleated RBC 0.00 Immature Gran % 2 H Nucleated RBC % 0 PT 11.2 INR 1.0 APTT 25.7 D 31.3 43.0 H D Sodium 144 Potassium 3.7 Chloride 109 H Carbon Dioxide 22.0 Anion Gap 13 BUN 24 H Creatinine 1.5 H Estim Creat Clear Calc 43.1 L eGFR 47 L BUN/Creatinine Ratio 16 Glucose 138 H Calculated Osmolality 292 Calcium 8.6 Corrected Calcium 9.5 Phosphorus 2.9 Magnesium 2.0 Total Bilirubin 1.0 AST 72 H ALT 55 H Alkaline Phosphatase 98 Ammonia < 10 L Total Protein 5.2 L Albumin 2.9 L Globulin 2.3 Albumin/Globulin Ratio 1.3 Vitamin B12 1484 H Folate 11.81 TSH 1.94 Syphilis Serology Nonreactive ABG Interpretation ABG results: 03/05/25 03/09/25 03/12/25 13:17 23:55 15:20 ABG pH 7.45 7.46 H ABG pCO2 27 L 36 ABG pO2 122 H 88 D ABG HCO3 18 L 25 ABG O2 Saturation 100 H 99 H ABG Base Excess -5 L 1 VBG pH 7.39 VBG pCO2 36 VBG pO2 31 VBG Base Excess -3 03/12/25 15:53 ABG pH ABG pCO2 ABG pO2 ABG HCO3 ABG O2 Saturation ABG Base Excess VBG pH 7.49 VBG pCO2 34 L VBG pO2 94 H VBG Base Excess 2 Quality Measures Quality Measures none Advance care planning discussed with:: patient Assessment & Plan Assessment Current Active Medications: Generic Name Dose Route Start Last Admin Trade Name Freq PRN Reason Stop Dose Admin Acetaminophen 650 mg 03/05/25 15:28 03/11/25 01:34 Acetaminophen 325 Mg Tablet PO 04/04/25 15:27 650 mg Q6H PRN Administration Fever >101.5 or pain (1-3) Amiodarone HCl 200 mg 03/14/25 21:30 03/15/25 08:08 Amiodarone Hcl 200 Mg Tablet PO 04/13/25 21:29 200 mg BID CLAUDE Administration Piperacillin/Tazobactam/Dextrose 3.375 g in 50 mls @ 12.5 mls/hr 03/10/25 10:33 03/15/25 14:03 Zosyn IV 03/17/25 10:32 12.5 mls/hr Q8HR CLAUDE Administration Heparin Sodium/Dextrose 25,000 unit in 250 mls @ 10.004 mls/hr 03/14/25 16:00 03/15/25 12:16 Heparin In D5w Ivpb IV 03/28/25 15:59 17.35 units/kg/hr .Q24H CLAUDE 15.292 mls/hr Administration Protocol 11.35 UNITS/KG/HR Sodium Chloride 1,000 mls @ 100 mls/hr 03/15/25 11:01 03/15/25 11:00 Ns IV 04/14/25 10:45 100 mls/hr .Q10H CLAUDE Administration Ipratropium [place] 0.5 mg 03/12/25 15:00 03/14/25 23:05 Ipratropium Rt 0.5 Mg/ 2.5 Ml Nebu INH 04/11/25 14:59 0.5 mg Q8HRRT CLAUDE Administration Labetalol HCl 10 mg 03/13/25 22:39 03/14/25 20:56 Labetalol Inj 5 Mg/Ml Vial 20 Ml IVP 04/12/25 09:59 10 mg Q4HR PRN Administration Sbp > 170 or DBP > 120 Levalbuterol HCl 1.25 mg 03/12/25 14:00 03/15/25 06:11 Levalbuterol Rt 1.25 Mg/0.5 Ml Nebu INH 04/11/25 13:59 1.25 mg Q8HR CLAUDE Administration Ondansetron HCl 4 mg 03/05/25 13:06 Ondansetron Inj 2 Mg/Ml Inj 2 Ml IVP 04/04/25 13:05 Q4HR PRN NAUSEA OR VOMITING Pantoprazole Sodium 40 mg 03/12/25 12:45 03/15/25 08:10 Pantoprazole Inj 40 Mg Vial IVP 04/11/25 12:44 40 mg BID CLAUDE Administration Pharmacy Consult 1 each 03/14/25 05:23 Pharmacy Renal Dose Adjustment 1 Ea XX 04/13/25 05:22 PRN PRN CONSULT Sodium Chloride 3 ml 03/12/25 10:45 Sodium Chloride Rt Aleena 0.9% 3 Ml Nebu INH 04/11/25 10:44 PRN PRN SOLN Plan Patient is an 79-year-old male with a past medical history of hypertension, hyperlipidemia, previous TIA (2017), atrial fibrillation home medication of Xarelto, history of polymyalgia rheumatica, and history of alcohol use disorder previous MRI in 2018 noted significant atrophy in the posterior fossa, BPH, and active smoker. Corey was admitted on 03/05/2025 for acute blood loss anemia, symptomatic, likely secondary to upper GI bleed s/p EGD and colonoscopy. #Acute Encephloapthy, secondary to multiple emoblic-type acute infarcts. #History of TIA #History of Ischemic stroke, right basal ganglia #Aphasia #Generalized Weakness Patient presented to the emergency room with chief complain of altered mental status, slurred speech, blank stare, and generalized weakness. Patient has not returned to baseline since then. Patient continues to have difficulty word finding. Per at bedside, denied new medication, denied seizure like activity, denied head trauma. acute encephalopathy likely secondary to acute embolic stroke and underlying hospital delirium Diagnostics: MRI brain (03/11/2025): multiple tiny embolic type foci of restricted diffusion with week matching ADC signal deficits in the frontal parietal lobes basal ganglia and posterior left temporal lobe. Increased white matter signal moderate CT head (03/08/2025): Negative for acute hemorrhage. Old infarct in the right basal ganglia CTA Head/Neck: negative Blood cultures Negative B12: 94 (L) TSH 1.51 (03/06/2025) Lipid Panel (03/06/2025): Triglycerides 165, Cholesterol 58, lDL 11, HDL 14 ASCVD: not applicable given age Plan -Given resection, anticoagulation managed by surgery team and primary team -Atorvastatin 40 mg PO HS, holding off Aspirin given recent acute blood loss anemia & surgery s/ resection -Plead follow delirium precautions -please avoid diphenhydramine if possible for agitation -Head of the bed at 30 degrees -Replace electrolytes as needed -Continue to monitor for signs of infection -Continue to follow blood cultures #Bowel perforation, serosal tear, cecum #status post cecum resection #Pneumoperitoneum c/f bowel perforation #Suspected SBO vs ileus #Sepsis, suspected #SIRs #Acute blood loss anemia, likely secondary to upper GI bleed #Angidysplasias SOFA 4 points #Atrial Fibrillation, on Amiodarone #Atrial Fibrillation, rvr, resolved. #VANNA on CKD #HLD #HTN #Pulmonary Vascular Congestion #Mild Concentric LV Hypertrophy #Smoker #Alcohol Use Disorder - The patient's plan was discussed with attending Dr. Guillermo Bryan MD PGY2 Internal Medicine Attending Provider Attestation/Addendum I personally have seen and examined the patient at the bedside and agreed with the residents findings, assessment and plan of care. Impression acute ischemic CVA now, with vascular dementia with fluctuating mental status Continue with anticoagulant therapy and start physical therapy when possible continue to monitor his hallucination Continue with current supportive care
[2025-03-15 16:00] LABS: Partial Thromboplastin Time 49.3 Seconds (22.0-36.0)
--- NOTE | 2025-03-15 16:48 | PC.SS ---
Rounding Note: Patient is post op day 3. Bowel movement pending. Patient on clear liquid diet.
[2025-03-15] MEDS: HEPARIN SOD INJ 5000 UNIT/ML VIAL 2000 UNIT IV (18:31)
--- NOTE | 2025-03-15 20:15 | PD.IMPROG ---
Documentation for date of: 03/15/25 Subjective Subjective Interval history: WBC count down to normal from 12.1-7.7 Hemoglobin hematocrit at 8.5 and 26.9 with a platelet count of 20 69,000 Exam Vital Signs Temp Pulse Resp BP Pulse Ox O2 Del Method O2 Flow Rate 97.3 F 105 H 19 148/108 H 96 Room Air 2 03/15/25 19:59 03/15/25 19:59 03/15/25 19:59 03/15/25 19:59 03/15/25 19:59 03/15/25 19:59 03/14/25 08:00 Objective Labs 03/15/25 06:14 03/15/25 06:14 Labs: Laboratory Results - last 24 hr 03/12/25 03/14/25 03/15/25 17:13 22:13 06:14 WBC 9.7 RBC 2.88 L Hgb 8.5 L Hct 26.9 L MCV 93 MCH 29.5 MCHC 31.6 RDW Std Deviation 72.9 H Plt Count 261 Neut % (Auto) 80 Lymph % (Auto) 8 L [place] % (Auto) 10 Eos % (Auto) 1 Baso % (Auto) 0 Neut # (Auto) 7.7 Lymph # (Auto) 0.7 L [place] # (Auto) 0.9 H Eos # (Auto) 0.1 Baso # (Auto) 0.0 Immature Gran # (Auto) 0.17 H Absolute Nucleated RBC 0.00 Immature Gran % 2 H Nucleated RBC % 0 APTT 31.3 43.0 H D Sodium 144 Potassium 3.7 Chloride 109 H Carbon Dioxide 22.0 Anion Gap 13 BUN 24 H Creatinine 1.5 H Estim Creat Clear Calc 43.1 L eGFR 47 L BUN/Creatinine Ratio 16 Glucose 138 H Calculated Osmolality 292 Calcium 8.6 Corrected Calcium 9.5 Phosphorus 2.9 Magnesium 2.0 Total Bilirubin 1.0 AST 72 H ALT 55 H Alkaline Phosphatase 98 Ammonia < 10 L Total Protein 5.2 L Albumin 2.9 L Globulin 2.3 Albumin/Globulin Ratio 1.3 Vitamin B12 1484 H Folate 11.81 TSH 1.94 Syphilis Serology Nonreactive Crossmatch See Detail 03/15/25 15:31 WBC RBC Hgb Hct MCV MCH MCHC RDW Std Deviation Plt Count Neut % (Auto) Lymph % (Auto) [place] % (Auto) Eos % (Auto) Baso % (Auto) Neut # (Auto) Lymph # (Auto) [place] # (Auto) Eos # (Auto) Baso # (Auto) Immature Gran # (Auto) Absolute Nucleated RBC Immature Gran % Nucleated RBC % APTT 49.3 H Sodium Potassium Chloride Carbon Dioxide Anion Gap BUN Creatinine Estim Creat Clear Calc eGFR BUN/Creatinine Ratio Glucose Calculated Osmolality Calcium Corrected Calcium Phosphorus Magnesium Total Bilirubin AST ALT Alkaline Phosphatase Ammonia Total Protein Albumin Globulin Albumin/Globulin Ratio Vitamin B12 Folate TSH Syphilis Serology Crossmatch Impressions Impression: post resection of the right colon that is limited resection with ilio ascending colon anastomosis Improving leukocytosis Atrial fibrillation rate controlled Continue current management ABG Interpretation ABG results: 03/05/25 03/09/25 03/12/25 13:17 23:55 15:20 ABG pH 7.45 7.46 H ABG pCO2 27 L 36 ABG pO2 122 H 88 D ABG HCO3 18 L 25 ABG O2 Saturation 100 H 99 H ABG Base Excess -5 L 1 VBG pH 7.39 VBG pCO2 36 VBG pO2 31 VBG Base Excess -3 03/12/25 15:53 ABG pH ABG pCO2 ABG pO2 ABG HCO3 ABG O2 Saturation ABG Base Excess VBG pH 7.49 VBG pCO2 34 L VBG pO2 94 H VBG Base Excess 2 Assessment & Plan A&P Narrative Status post bowel surgery stable hemodynamic continue current treatment postop care p.o. started Time Spent With Patient Time: Total time spent is greater than 50% in coordination of care (as documented) at patient's floor/unit and/or counseling patient:
[2025-03-16] VITALS (12 sets, daily range): BP systolic 150–168; BP diastolic 103–117; PULSE 93–115; RESP 17–26; TEMP 36.1–36.6; O2SAT 92–100; BMI 25.9; BMI 13.0
[2025-03-16 01:47] LABS: Partial Thromboplastin Time 58.4 Seconds (22.0-36.0)
[2025-03-16] MEDS: Heparin/D5w 25K 250 ML Ivpb 25,000 UNIT/250 ML BAG 17.055 UNIT IV ×2 (04:46→20:16)
[2025-03-16] MEDS: PIPER/TAZO 3.375 GM PREMIX 3.375 G/50 ML BAG IV ×3 (05:29→21:33)
[2025-03-16 06:15] LABS: Basophils # (Auto) 0.0 Thou/mm3 (0.0-0.2); Basophils % (Auto) 1 % (0-2.5); Eosinophils # (Auto) 0.2 Thou/mm3 (0.0-0.5); Eosinophils % (Auto) 2 % (0-10); Hematocrit 25.4 % (41.0-53.0); Immature Granulocytes Auto 0.36 Thou/mm3 (0.00-0.00); Lymphocytes # (Auto) 0.9 Thou/mm3 (1.0-4.8); Lymphocytes % (Auto) 12 % (10-50); Mean Corpuscular HGB Conc 32.7 g/dl (31.0-37.0); Mean Corpuscular Hemoglobin 30.5 pg (25.0-35.0); Mean Corpuscular Volume 93 fL (80-100); Monocytes # (Auto) 0.6 Thou/mm3 (0.0-0.8); Monocytes % (Auto) 8 % (0-12); Neutrophils # (Auto) 5.5 Thou/mm3 (1.8-7.7); Neutrophils % (Auto) 73 % (37-80); Nucleated Red Blood Cell # 0.00 Thou/mm3 (0.00-0.00); Nucleated Red Blood Cell % 0 /100 WBC (0); Platelet Count 271 Thou/mm3 (140-440); RDW Standard Deviation 71.5 fL (35.1-43.9); Red Blood Count 2.72 Miln/mm3 (4.50-5.90); White Blood Count 7.5 Thou/mm3 (3.8-10.6)
[2025-03-16] MEDS: LEVALBUTEROL RT 1.25 MG/0.5 ML NEBU INH ×3 (06:18→22:28)
[2025-03-16] MEDS: IPRATROPIUM RT 0.5 MG/ 2.5 ML NEBU INH ×2 (06:18→22:28)
[2025-03-16 06:20] LABS: Hemoglobin 8.3 g/dL (13.5-16.0)
[2025-03-16 06:38] LABS: Alanine Aminotransferase 42 U/L (10-49); Albumin, Serum 2.8 gm/dL (3.4-4.8); Albumin/Globulin Ratio 1.3 (1.2-2.2); Alkaline Phosphatase 91 U/L (46-116); Anion Gap 10 (7-16); Aspartate Amino Transferase 48 U/L (0-34); BUN/Creatinine Ratio 12 Ratio (12-20); Bilirubin,Total 1.1 mg/dL (0.3-1.2); Blood Urea Nitrogen 18 mg/dL (9-23); Calcium 8.2 mg/dL (8.3-10.6); Calcium (Corrected) 9.2 mg/dL (8.5-10.1); Carbon Dioxide 24.6 mMol/L (20.0-31.0); Chloride 109 mMol/L (98-107); Creatinine (Component) 1.5 mg/dL (0.6-1.3); Estimated Creatinine Clearance 43.1 mL/min (>60); Globulin 2.1 gm/dL (2.3-3.5); Glucose 125 mg/dL (74-106); Magnesium 2.1 mg/dL (1.6-2.6); Osmolality,Calculated 289 (275-295); Phosphorous 3.1 mg/dL (2.4-5.1); Potassium 3.8 mMol/L (3.4-5.1); Sodium 144 mMol/L (136-145); Total Protein 4.9 gm/dL (5.7-8.2); eGFR 47 See Note
[2025-03-16] MEDS: AMIODARONE HCL 200 MG TABLET PO ×2 (08:25→21:34)
[2025-03-16] MEDS: SODIUM CHLORIDE 0.9% 1000 ML 1,000 ML 100 ML IV (08:26)
--- NOTE | 2025-03-16 08:44 | PC.SS ---
Update: Patient had small bowel movement yesterday. Plan is to advance diet.
--- NOTE | 2025-03-16 09:50 | ESPR_ITS ---
<Statement entered by Yara Wintesr MD - 03/16/25 21:59> Pt is seen at bedside, currently POD 4 is currently awake and alert. Pt is able to hold a conversation and ask questions. is at bedside as well. Pt had a bowel movement yesterday and today. Per surgery recommendation will advance clearn liquid diet to regular diet and will continue to monitor. Per surgery, pt pt continues to improve then will close the surgical site on Friday. For now will continue heparin drip for anticoagulation, pt is in afib RVR despite being on amiodarone, will add metoprolol XL and monitor telemetry. Per ID recommendations, will continue IV abx for total 5 days, will discontinue after last dose tomorrow (03/17). Patient was seen and examined by me personally. I have directly supervised and reviewed documentation by the team resident and agree with its findings. ------- Plan of care was discussed with the attending, Dr. Chelly Winters, PGY-2 Documentation for date of: 03/16/25 Subjective Subjective Interval history: Overnight events: No acute events overnight. Patient was seen and examined at bedside. AM vitals and labs reviewed. Patient had bowel movement yesterday and this morning. Noted to be dark colored. No complaints at this time. Non-tender to palpation of abdomen. Left arm swelling improved and decreased erythema. Discussed with Dr. Smith, general surgery, who advanced patient's diet to regular diet. Added cardiac modifier. Dr. Zapien, ID, recommended continuing Zosyn until 03/17. Continue Zosyn and amiodarone 200mg BID at this time. Continue heparin drip until general surgery agrees with transitioning to Xarelto. Discussed with Dr. Colon, cardiology, about starting metoprolol given patient's HR and BP, to which he agreed. Review of systems otherwise negative except for what is mentioned above. Exam Vital Signs Temp Pulse Resp BP Pulse Ox O2 Del Method O2 Flow Rate 97.7 F 115 H 22 H 154/116 H 96 Room Air 2 03/16/25 08:00 03/16/25 08:25 03/16/25 08:00 03/16/25 08:25 03/16/25 08:00 03/16/25 08:00 03/14/25 08:00 Narrative Exam Physical Exam: General: Alert, no acute distress. Skin: Warm, intact, no obvious rash. Head: Normocephalic, atraumatic. Eye: Normal conjunctiva, PERRL. Cardiovascular: Regular rate and rhythm, soft systolic murmur best heard over tricuspid/mitral region, +S1/S2. Respiratory: Lungs are clear to auscultation, respirations unlabored, no crackles, no wheezing. Gastrointestinal: Soft, nontender, non-distended. No guarding or rebound tenderness. Extremities: No edema, no cyanosis, no clubbing. Left arm slightly swollen, non- tender, and dark discoloring present. Neuro: No focal deficits observed. Conversant, moving all extremities. No overt cerebellar signs/incoordination. Psychiatric: Cooperative, appropriate affect. Objective Labs 03/16/25 05:24 03/16/25 05:24 Labs: Laboratory Results - last 24 hr 03/12/25 03/15/25 03/16/25 17:13 15:31 00:27 WBC RBC Hgb Hct MCV MCH MCHC RDW Std Deviation Plt Count Neut % (Auto) Lymph % (Auto) [facility] % (Auto) Eos % (Auto) Baso % (Auto) Neut # (Auto) Lymph # (Auto) [facility] # (Auto) Eos # (Auto) Baso # (Auto) Immature Gran # (Auto) Absolute Nucleated RBC Immature Gran % Nucleated RBC % APTT 49.3 H 58.4 H Sodium Potassium Chloride Carbon Dioxide Anion Gap BUN Creatinine Estim Creat Clear Calc eGFR BUN/Creatinine Ratio Glucose Calculated Osmolality Calcium Corrected Calcium Phosphorus Magnesium Total Bilirubin AST ALT Alkaline Phosphatase Total Protein Albumin Globulin Albumin/Globulin Ratio Blood Type O Positive Antibody Screen NEGATIVE Crossmatch See Detail Blood Bank Wristband ID Yes 03/16/25 05:24 WBC 7.5 RBC 2.72 L Hgb 8.3 L Hct 25.4 L MCV 93 MCH 30.5 MCHC 32.7 RDW Std Deviation 71.5 H Plt Count 271 Neut % (Auto) 73 Lymph % (Auto) 12 [facility] % (Auto) 8 Eos % (Auto) 2 Baso % (Auto) 1 Neut # (Auto) 5.5 Lymph # (Auto) 0.9 L [facility] # (Auto) 0.6 Eos # (Auto) 0.2 Baso # (Auto) 0.0 Immature Gran # (Auto) 0.36 H Absolute Nucleated RBC 0.00 Immature Gran % 5 H Nucleated RBC % 0 APTT Sodium 144 Potassium 3.8 Chloride 109 H Carbon Dioxide 24.6 Anion Gap 10 BUN 18 Creatinine 1.5 H Estim Creat Clear Calc 43.1 L eGFR 47 L BUN/Creatinine Ratio 12 Glucose 125 H Calculated Osmolality 289 Calcium 8.2 L Corrected Calcium 9.2 Phosphorus 3.1 Magnesium 2.1 Total Bilirubin 1.1 AST 48 H ALT 42 Alkaline Phosphatase 91 Total Protein 4.9 L Albumin 2.8 L Globulin 2.1 L Albumin/Globulin Ratio 1.3 Blood Type Antibody Screen Crossmatch Blood Bank Wristband ID ABG Interpretation ABG results: 03/05/25 03/09/25 03/12/25 13:17 23:55 15:20 ABG pH 7.45 7.46 H ABG pCO2 27 L 36 ABG pO2 122 H 88 D ABG HCO3 18 L 25 ABG O2 Saturation 100 H 99 H ABG Base Excess -5 L 1 VBG pH 7.39 VBG pCO2 36 VBG pO2 31 VBG Base Excess -3 03/12/25 15:53 ABG pH ABG pCO2 ABG pO2 ABG HCO3 ABG O2 Saturation ABG Base Excess VBG pH 7.49 VBG pCO2 34 L VBG pO2 94 H VBG Base Excess 2 Quality Measures Quality Measures none Advance care planning discussed with:: patient and spouse Assessment & Plan Assessment Current Active Medications: Generic Name Dose Route Start Last Admin Trade Name Freq PRN Reason Stop Dose Admin Acetaminophen 650 mg 03/05/25 15:28 03/11/25 01:34 Acetaminophen 325 Mg Tablet PO 04/04/25 15:27 650 mg Q6H PRN Administration Fever >101.5 or pain (1-3) Amiodarone HCl 200 mg 03/14/25 21:30 03/16/25 08:25 Amiodarone Hcl 200 Mg Tablet PO 04/13/25 21:29 200 mg BID CLAUDE Administration Piperacillin/Tazobactam/Dextrose 3.375 g in 50 mls @ 12.5 mls/hr 03/10/25 10:33 03/16/25 05:29 Zosyn IV 03/17/25 10:32 12.5 mls/hr Q8HR CLAUDE Administration Heparin Sodium/Dextrose 25,000 unit in 250 mls @ 10.004 mls/hr 03/14/25 16:00 03/16/25 04:46 Heparin In D5w Ivpb IV 03/28/25 15:59 19.35 units/kg/hr .Q24H CLAUDE 17.055 mls/hr Administration Protocol 11.35 UNITS/KG/HR Sodium Chloride 1,000 mls @ 100 mls/hr 03/15/25 11:01 03/16/25 08:26 Ns IV 04/14/25 10:45 100 mls/hr .Q10H CLAUDE Administration Ipratropium [place] 0.5 mg 03/12/25 15:00 03/16/25 06:18 Ipratropium Rt 0.5 Mg/ 2.5 Ml Nebu INH 04/11/25 14:59 0.5 mg Q8HRRT CLAUDE Administration Labetalol HCl 10 mg 03/13/25 22:39 03/14/25 20:56 Labetalol Inj 5 Mg/Ml Vial 20 Ml IVP 04/12/25 09:59 10 mg Q4HR PRN Administration Sbp > 170 or DBP > 120 Levalbuterol HCl 1.25 mg 03/12/25 14:00 03/16/25 06:18 Levalbuterol Rt 1.25 Mg/0.5 Ml Nebu INH 04/11/25 13:59 1.25 mg Q8HR CLAUDE Administration Ondansetron HCl 4 mg 03/05/25 13:06 Ondansetron Inj 2 Mg/Ml Inj 2 Ml IVP 04/04/25 13:05 Q4HR PRN NAUSEA OR VOMITING Pantoprazole Sodium 40 mg 03/12/25 12:45 03/16/25 08:24 Pantoprazole Inj 40 Mg Vial IVP 04/11/25 12:44 40 mg BID CLAUDE Administration Pharmacy Consult 1 each 03/14/25 05:23 Pharmacy Renal Dose Adjustment 1 Ea XX 04/13/25 05:22 PRN PRN CONSULT Sodium Chloride 3 ml 03/12/25 10:45 Sodium Chloride Rt Aleena 0.9% 3 Ml Nebu INH 04/11/25 10:44 PRN PRN SOLN Plan Devan Rios is an 79M pmhx significant for A-fib on Xarelto, hypertension, RA, PMR, and CKDIIIa who presented to [facility] ED on 03/05 for generalized weakness and inability to walk, admitted for upper and lower GIB, course complicated by ischemic CVAs, and fevers and AMS c/f bowel perforation. #Bowel perforation, serosal tear, cecum #status post cecum resection #Pneumoperitoneum c/f bowel perforation #Suspected SBO vs ileus Overnight on 03/11, patient's abdomen acutely distended and tense c/f SBO vs ileus. Repeat KUB showed high grade mechanical SBO pattern. Patient is unable to communicate if he is passing gas, AOx2 to person and time only. CTAP showed pneumoperitoneum, suspicious for ischemic bowel including right colon and small bowel, significantly distended small bowel loops consistent with obstruction Plan: - Hold all oral medications - General surgery Dr. Smith consulted, performed exploratory laparotomy, found serosal tear in cecum, that was repaired with resection of the cecum and the ascending colon and ilio ascending colostomy - Possible closure of surgical site Sunday 03/18 - Cardiac diet as general surgery recommends resumption of regular diet - Continue piperacillin/tazobactam (03/10-03/17) #Acute encephalopathy, likely multifactorial 2/2 #Aspiration pneumonia #Fever, improving Presented with fatigue that had sudden onset on 03/05 in the morning likely 2/2 symptomatic anemia. Rapid response x2 were called 03/08 and 03/10 for fever and acute AMS. Since, patient has had fluctuations of mental status return to baseline, then becoming altered. Patient had a fever on 03/08 initially, which has become more frequent over time. Tmax 102.4. Patient did have a sudden spike in WBC on second rapid response without leukocytosis, however this WBC quickly resolved back to baseline about 3 hours later. On 03/11 nursing recorded episode of vomiting, where patient likely aspirated as morning of 03/12, patient desaturated to 93% requiring 4L O2 oxymask. Acute encephalopathy likely multifactorial iso aspiration PNA and stroke. Fever ddx includes L arm cellulitis, meningitis, delayed nonhemolytic transfusion reaction, febrile nonhemolytic transfusion reaction, however improving on antibiotics. Dixon test neg, digoxin levels 0.7, folate and B12 wnl s/p B12 injection 03/09, T4 wnl, CRP and ESR wnl, cocci IgM and IgG neg, BCx and UCx NGTD Plan: - Piperacillin/tazobactam (03/10-03/17) - Start scheduled Duonebs q8h - Neurology consulted, appreciate recommendations - Infectious disease consulted, appreciate recommendations - Aspiration precautions elevate head of bed at 30 degrees - Patient passed swallow re-evaluation by speech therapy, recommends chopped diet #Ischemic CVA, embolic (frontal lobe, parietal lobe, basal ganglia, posterior left temporal lobe) #History of TIA #Transient aphasia Patient has hx of atrial fibrillation on Xarelto which was held on admission 03/05 due to GIB. Due to episodes of altered mental status starting 03/08, the patient had a code stroke called. CT head without contrast and CTA head and neck were negative for stroke. Neurology was consulted, and at the time CT head and CTA head and neck were negative for acute strokes. MRI was not recommended at that time due to concerns of an underlying metabolic encephalopathy. Received Xarelto 15 mg 03/10 and 03/11 03/11 MRI showed multiple embolic type acute infarcts in frontal, parietal lobes, basal ganglia and posterior left temporal lobe Plan: - Xarelto held, will start heparin gtt, plan to resume Xarelto upon discharge - Atorvastatin held iso suspected bowel perforation - Neurology consulted, recs appreciated #A-fib with RVR, rate not controlled, on Xarelto Patient has a history of atrial fibrillation and sees piping blocker Dr. Colon for management. Patient is currently on Xarelto and digoxin. Asked pharmacy about digoxin dosing and they confirmed 0.125 mg daily while patient's family states that the patient takes 0.125 mg Friday and Friday. Contacted Dr. Colon for confirmation, and he stated that the patient was okay taking 0.125 mg Friday. Patient's uncontrolled rate a-fib RVR is likely 2/2 presence of likely suspected SBO vs ileus CHADS-VASC score 4 (stroke risk 4.8% per year) HAS-BLED score 3 (bleed risk 5.8%, patient is at high risk for major bleeding) Plan: - Stopped patient's home digoxin - Consulted cardiology, Dr. Colon, recs appreciated - Amiodarone 200mg BID - Metoprolol XL 25mg daily - Continue heparin ggt in case patient has further bleeding at inscision site, plan to transition to Xarelto on discharge #Upper and lower GI bleed 2/2 #Angiodysplasias of GI tract #Symptomatic anemia (resolved) Patient was brought to ED due to generalized fatigue and difficulty waking on the morning of 03/05 with melena started 2-3 weeks ago. Admission H&H 12/01/.2 s/p 2 prbc on 03/05 and 2 more pRBC on 03/07 with stabilization of H&H. Initial EGD showed angiodysplastic bleeding in gastric body and gastric fundus, requiring cautery and clipping. Repeat EGD 03/07, which showed no additional bleeding Colonoscopy planned for 03/08, delayed to 03/09, which showed moderate diverticulosis in sigmoid and descending colon, and multiple bleeding colonic angiodysplastic lesions that were treated with argon plasma coagulation Ddx for multiple angiodysplasias possibly secondary to subtherapeutic anticoagulation on Xarelto 15 mg instead of Xarelto 20 mg causing multiple emboli with possible embolisms to GI tract Plan: ? GI consulted, recs appreciated ? Patient to follow-up with Dr. Bauer, GI, and referral to perform capsule endoscopy #VANNA on CKD likely prerenal In the ED, the patient had a BUN of 85, creatinine of 2.1, and GFR of 31. On chart review, patient has CKDIII with baseline Cr 1.4-1.7. VANNA likely 2/2 acute loss of blood due to GI bleed, resulting in decreased blood flow to the kidneys, which resolved 03/09 03/12 Cr increased to 1.8, likely 2/2 to suspected SBO. Plan: - SBO treatment plan as above ? Renally dose medications ? Avoid nephrotoxic medications ? Will hold off on IV fluid hydration given mild heart failure congestion on repeat CXR #CHF (EF 55% 2024) Patient does not have a documented history of CHF, but patient takes furosemide 20 mg p.o. daily at home. Echocardiogram done on 04/30/2018 showed EF of 50% with moderate mitral regurgitation. Plan: ? Will hold patient's home furosemide given suspected SBO ? Strict ins and outs and daily weights ? Echocardiogram 03/11 showed negative bubble study, EF 55%, severely increased left atrial volume, aortic valve sclerosis without stenosis, mild mitral regurgitation, mild aortic regurgitation, mild tricuspid regurgitation, no thrombi. #Primary Hypertension Patient has a history of hypertension. Patient takes benazepril 40 mg daily and clonidine 0.2 mg 3 times daily at home. Plan: - Will hold patient's home antihypertensives of benazepril, clonidine, furosemide - Will monitor blood pressure closely - Metoprolol XL 25mg daily #Vitamin B12 deficiency Patient was noted to have B12 of 94 on 03/06. - B12 1,000 mcg injection, repeat B12 03/14 noted to be 1484. DVT Prophylaxis: Heparin GI Prophylaxis: Protonix Bowel: N/A Diet: Cardiac Justin: N/A Lines: Peripheral IV Antibiotics: Zosyn (03/10-03/17) Code Status: FULL Reason for Hospitalization: GI bleed Other Barriers to Discharge: Post-op recovery Patient plan of care was discussed with the senior resident Dr. Winters (PGY-2) and attending physician Dr. Chelly Levine, PGY1 Attending Provider Attestation/Addendum I attest that I was physically present for the evaluation, physical examination, lab and imaging review of the patient with the residents. I discussed the case with the residents and agree with the findings and plans of care as documented above. At bedside today, patient appears comfortable. States that his pain has been controlled, denies any new complaints. Patient had bowel movements yesterday and this morning, has been passing gas. Discussed with general surgery, recommended to advance diet, we will start him on regular diet with cardiac modification, anticipated closure on Friday. Discussed with cardiology, we will continue with amiodarone, start him on metoprolol and continue with heparin drip until closure of abdomen. Infectious disease following closely, recommended IV Zosyn to continue until tomorrow. Aspirin and atorvastatin on hold due to bowel perforation, neurology following closely, appreciate recommendations. Aurelia Spaulding MD
--- NOTE | 2025-03-16 10:09 | ESPR_ITS ---
Documentation for date of: 03/16/25 Subjective Subjective Interval history: Patient is an 79-year-old male with a past medical history of hypertension, hyperlipidemia, previous TIA (2018), atrial fibrillation home medication of Xarelto, history of polymyalgia rheumatica, and history of alcohol use disorder previous MRI in 2018 noted significant atrophy in the posterior fossa, BPH, and active smoker who was admitted for upper GI bleed now s/p colonoscopy and endoscopy-angiodysplastic lesion. MRI on (03/11/2025): noted multiple emoblic type infracts. 03/14/2025: Incision site continues to be partially open and currently gauze packing. No major bleeding reported. Patient went for ex lap on 03/12/2025, s/p resection of the cecum, ascending colon, and ilio ascending colostomy Day 2 secondary to perforated cecum. Patient was advanced to clear liquid diet per surgery recommendations. Holding off Xarelto and will transition to heparin per surgery recommendations. Patient waxes and wanes, patient is alert to self, location, and year, but unable to care on a full conversation. Patient unable to draw a clock. 03/15/2025: Patient continues to wax and wane, currently alert and orientated X 1. Patient is now on clear liquid diet, tolerating diet well. Patient becomes anxious when not present in room. Patient likely has underlying hospital delirium given increased confusion. Patient remains off Xarelto and Aspirin, based on general surgery discretion. 03/16/2025: No overnight events. Possible sundowning, as paitnet continues to spend most mornings taking naps and is more active at night. Patient continues to wax and wane in terms of mentation. Alert and Orientated X 1. Not orientated to time or location today. Abdomen appeared hyper-resonant, patient denied abdominal pain and is passing flatulence and bowel movements. May benefit from gas x. Heparin on board. Resume anticoagulation based on primary teams and general surgery discretion. Hemoglobing has trended down from 9.4-->to 8.3 over the last 4 days. continue to monitor for signs of bleeding. Exam Vital Signs Temp Pulse Resp BP Pulse Ox O2 Del Method O2 Flow Rate 97.7 F 115 H 22 H 154/116 H 96 Room Air 2 03/16/25 08:00 03/16/25 08:25 03/16/25 08:00 03/16/25 08:25 03/16/25 08:00 03/16/25 08:00 03/14/25 08:00 Narrative Exam General Appearance: Alert & Oriented X 1 but waxes and wanes, well-nourished male who is lying in bed in no acute distress HEENT: Skull symmetrical and atraumatic. Conjunctivae pale pink and moist. Pupils equal, round, reactive to light and accommodation (PERRL). External ear without lesion or discharge. Straight, nares patient, mucosa pink, no discharge. No thyroid nodule appreciated. No cervical lymphadenopathy. Cardio: Normal Rate and Rhythm with S1 and S2 heart sounds. No murmurs or extra heart sounds auscultated. No bruits on carotid auscultation. No peripheral edema or cyanosis. Lungs: Symmetric with good expansion. Chest and back non-tender. Breath sounds vesicular without crackles, wheezing or rhonchi Abdomen: no tenderness, left sided surgical niya that appear to be healing now with bandages all around surgical site, mild-distended, Normal Reactive Bowel Sounds, hyper-resonant. Neuro: Yes Alert, Yes cooperative, Yes oriented to person, NO place, and NO time. dysarthic. CN grossly intact. Upper motor strength 5/5 and Lower motor strength 5/5. Sensation intact. Objective Labs 03/17/25 05:01 03/17/25 05:01 Labs: Laboratory Results - last 24 hr 03/12/25 03/15/25 03/16/25 17:13 15:31 00:27 WBC RBC Hgb Hct MCV MCH MCHC RDW Std Deviation Plt Count Neut % (Auto) Lymph % (Auto) [place] % (Auto) Eos % (Auto) Baso % (Auto) Neut # (Auto) Lymph # (Auto) [place] # (Auto) Eos # (Auto) Baso # (Auto) Immature Gran # (Auto) Absolute Nucleated RBC Immature Gran % Nucleated RBC % APTT 49.3 H 58.4 H Sodium Potassium Chloride Carbon Dioxide Anion Gap BUN Creatinine Estim Creat Clear Calc eGFR BUN/Creatinine Ratio Glucose Calculated Osmolality Calcium Corrected Calcium Phosphorus Magnesium Total Bilirubin AST ALT Alkaline Phosphatase Total Protein Albumin Globulin Albumin/Globulin Ratio Blood Type O Positive Antibody Screen NEGATIVE Crossmatch See Detail Blood Bank Wristband ID Yes 03/16/25 05:24 WBC 7.5 RBC 2.72 L Hgb 8.3 L Hct 25.4 L MCV 93 MCH 30.5 MCHC 32.7 RDW Std Deviation 71.5 H Plt Count 271 Neut % (Auto) 73 Lymph % (Auto) 12 [place] % (Auto) 8 Eos % (Auto) 2 Baso % (Auto) 1 Neut # (Auto) 5.5 Lymph # (Auto) 0.9 L [place] # (Auto) 0.6 Eos # (Auto) 0.2 Baso # (Auto) 0.0 Immature Gran # (Auto) 0.36 H Absolute Nucleated RBC 0.00 Immature Gran % 5 H Nucleated RBC % 0 APTT Sodium 144 Potassium 3.8 Chloride 109 H Carbon Dioxide 24.6 Anion Gap 10 BUN 18 Creatinine 1.5 H Estim Creat Clear Calc 43.1 L eGFR 47 L BUN/Creatinine Ratio 12 Glucose 125 H Calculated Osmolality 289 Calcium 8.2 L Corrected Calcium 9.2 Phosphorus 3.1 Magnesium 2.1 Total Bilirubin 1.1 AST 48 H ALT 42 Alkaline Phosphatase 91 Total Protein 4.9 L Albumin 2.8 L Globulin 2.1 L Albumin/Globulin Ratio 1.3 Blood Type Antibody Screen Crossmatch Blood Bank Wristband ID ABG Interpretation ABG results: 03/05/25 03/09/25 03/12/25 13:17 23:55 15:20 ABG pH 7.45 7.46 H ABG pCO2 27 L 36 ABG pO2 122 H 88 D ABG HCO3 18 L 25 ABG O2 Saturation 100 H 99 H ABG Base Excess -5 L 1 VBG pH 7.39 VBG pCO2 36 VBG pO2 31 VBG Base Excess -3 03/12/25 15:53 ABG pH ABG pCO2 ABG pO2 ABG HCO3 ABG O2 Saturation ABG Base Excess VBG pH 7.49 VBG pCO2 34 L VBG pO2 94 H VBG Base Excess 2 Quality Measures Quality Measures none Advance care planning discussed with:: patient Assessment & Plan Assessment Current Active Medications: Generic Name Dose Route Start Last Admin Trade Name Freq PRN Reason Stop Dose Admin Acetaminophen 650 mg 03/05/25 15:28 03/11/25 01:34 Acetaminophen 325 Mg Tablet PO 04/04/25 15:27 650 mg Q6H PRN Administration Fever >101.5 or pain (1-3) Amiodarone HCl 200 mg 03/14/25 21:30 03/16/25 08:25 Amiodarone Hcl 200 Mg Tablet PO 04/13/25 21:29 200 mg BID CLAUDE Administration Piperacillin/Tazobactam/Dextrose 3.375 g in 50 mls @ 12.5 mls/hr 03/10/25 10:33 03/16/25 05:29 Zosyn IV 03/17/25 10:32 12.5 mls/hr Q8HR CLAUDE Administration Heparin Sodium/Dextrose 25,000 unit in 250 mls @ 10.004 mls/hr 03/14/25 16:00 03/16/25 04:46 Heparin In D5w Ivpb IV 03/28/25 15:59 19.35 units/kg/hr .Q24H CLAUDE 17.055 mls/hr Administration Protocol 11.35 UNITS/KG/HR Ipratropium [place] 0.5 mg 03/12/25 15:00 03/16/25 06:18 Ipratropium Rt 0.5 Mg/ 2.5 Ml Nebu INH 04/11/25 14:59 0.5 mg Q8HRRT CLAUDE Administration Labetalol HCl 10 mg 03/13/25 22:39 03/14/25 20:56 Labetalol Inj 5 Mg/Ml Vial 20 Ml IVP 04/12/25 09:59 10 mg Q4HR PRN Administration Sbp > 170 or DBP > 120 Levalbuterol HCl 1.25 mg 03/12/25 14:00 03/16/25 06:18 Levalbuterol Rt 1.25 Mg/0.5 Ml Nebu INH 04/11/25 13:59 1.25 mg Q8HR CLAUDE Administration Ondansetron HCl 4 mg 03/05/25 13:06 Ondansetron Inj 2 Mg/Ml Inj 2 Ml IVP 04/04/25 13:05 Q4HR PRN NAUSEA OR VOMITING Pantoprazole Sodium 40 mg 03/12/25 12:45 03/16/25 08:24 Pantoprazole Inj 40 Mg Vial IVP 04/11/25 12:44 40 mg BID CLAUDE Administration Pharmacy Consult 1 each 03/14/25 05:23 Pharmacy Renal Dose Adjustment 1 Ea XX 04/13/25 05:22 PRN PRN CONSULT Sodium Chloride 3 ml 03/12/25 10:45 Sodium Chloride Rt Aleena 0.9% 3 Ml Nebu INH 04/11/25 10:44 PRN PRN SOLN Plan Patient is an 79-year-old male with a past medical history of hypertension, hyperlipidemia, previous TIA (2018), atrial fibrillation home medication of Xarelto, history of polymyalgia rheumatica, and history of alcohol use disorder previous MRI in 2018 noted significant atrophy in the posterior fossa, BPH, and active smoker. Corey was admitted on 03/05/2025 for acute blood loss anemia, symptomatic, likely secondary to upper GI bleed s/p EGD and colonoscopy. #Acute Encephloapthy, secondary to multiple emoblic-type acute infarcts. #History of TIA #History of Ischemic stroke, right basal ganglia #Aphasia #Generalized Weakness Patient presented to the emergency room with chief complain of altered mental status, slurred speech, blank stare, and generalized weakness. Patient has not returned to baseline since then. Patient continues to have difficulty word finding. Per at bedside, denied new medication, denied seizure like activity, denied head trauma. acute encephalopathy likely secondary to acute embolic stroke and underlying hospital delirium Diagnostics: MRI brain (03/11/2025): multiple tiny embolic type foci of restricted diffusion with week matching ADC signal deficits in the frontal parietal lobes basal ganglia and posterior left temporal lobe. Increased white matter signal moderate CT head (03/08/2025): Negative for acute hemorrhage. Old infarct in the right basal ganglia CTA Head/Neck: negative Blood cultures Negative B12: 94 (L) TSH 1.51 (03/06/2025) Lipid Panel (03/06/2025): Triglycerides 165, Cholesterol 58, lDL 11, HDL 14 ASCVD: not applicable given age Plan -Given resection, anticoagulation managed by surgery team and primary team -Atorvastatin 40 mg PO HS, holding off Aspirin & Xarelto given recent acute blood loss anemia & surgery s/ resection -Plead follow delirium precautions -please avoid diphenhydramine if possible for agitation -Head of the bed at 30 degrees -Replace electrolytes as needed -Continue to monitor for signs of infection -Continue to follow blood cultures #Bowel perforation, serosal tear, cecum #status post cecum resection #Pneumoperitoneum c/f bowel perforation #Suspected SBO vs ileus #Sepsis, suspected #SIRs #Acute blood loss anemia, likely secondary to upper GI bleed #Angidysplasias SOFA 4 points #Atrial Fibrillation, on Amiodarone #Atrial Fibrillation, rvr, resolved. #VANNA on CKD #HLD #HTN #Pulmonary Vascular Congestion #Mild Concentric LV Hypertrophy #Smoker #Alcohol Use Disorder - The patient's plan was discussed with attending Dr. Guillermo Bryan MD PGY2 Internal Medicine Attending Provider Attestation/Addendum I personally have seen and examined the patient at the bedside and agreed with resident findings, assessment and plan of care. Impression: Recent ischemic CVA secondary to atrial fibrillation Mental status: Fluctuating Vascular dementia Small bowel obstruction status post to surgery, going for closure tomorrow. Continue with heparin infusion until cleared by surgery for switching to Xarelto.
[2025-03-16 11:57] LABS: Partial Thromboplastin Time 60.7 Seconds (22.0-36.0)
--- NOTE | 2025-03-16 13:24 | ESPR_ITS ---
Subjective Subjective Interval history: today if say 6 of zosyn. it is empirical as all cx are neg. ua is also neg. cxr is abnormal though.last fever was on the . surgery was on 03/12, friday, so rx will be thru 03/17 (5 days). Exam Vital Signs Temp Pulse Resp BP Pulse Ox O2 Del Method O2 Flow Rate 97.5 F 106 H 20 168/106 H 94 L Room Air 2 03/16/25 12:00 03/16/25 12:00 03/16/25 12:00 03/16/25 12:00 03/16/25 12:00 03/16/25 12:00 03/14/25 08:00 Objective - Internal Medicine Labs 03/16/25 05:24 03/16/25 05:24 Labs: Laboratory Results - last 24 hr 03/12/25 03/15/25 03/16/25 17:13 15:31 00:27 WBC RBC Hgb Hct MCV MCH MCHC RDW Std Deviation Plt Count Neut % (Auto) Lymph % (Auto) [place] % (Auto) Eos % (Auto) Baso % (Auto) Neut # (Auto) Lymph # (Auto) [place] # (Auto) Eos # (Auto) Baso # (Auto) Immature Gran # (Auto) Absolute Nucleated RBC Immature Gran % Nucleated RBC % APTT 49.3 H 58.4 H Sodium Potassium Chloride Carbon Dioxide Anion Gap BUN Creatinine Estim Creat Clear Calc eGFR BUN/Creatinine Ratio Glucose Calculated Osmolality Calcium Corrected Calcium Phosphorus Magnesium Total Bilirubin AST ALT Alkaline Phosphatase Total Protein Albumin Globulin Albumin/Globulin Ratio Blood Type O Positive Antibody Screen NEGATIVE Crossmatch See Detail Blood Bank Wristband ID Yes 03/16/25 03/16/25 05:24 10:15 WBC 7.5 RBC 2.72 L Hgb 8.3 L Hct 25.4 L MCV 93 MCH 30.5 MCHC 32.7 RDW Std Deviation 71.5 H Plt Count 271 Neut % (Auto) 73 Lymph % (Auto) 12 [place] % (Auto) 8 Eos % (Auto) 2 Baso % (Auto) 1 Neut # (Auto) 5.5 Lymph # (Auto) 0.[address] [place] # (Auto) 0.6 Eos # (Auto) 0.2 Baso # (Auto) 0.0 Immature Gran # (Auto) 0.36 H Absolute Nucleated RBC 0.00 Immature Gran % 5 H Nucleated RBC % 0 APTT 60.7 H Sodium 144 Potassium 3.8 Chloride 109 H Carbon Dioxide 24.6 Anion Gap 10 BUN 18 Creatinine 1.5 H Estim Creat Clear Calc 43.1 L eGFR 47 L BUN/Creatinine Ratio 12 Glucose 125 H Calculated Osmolality 289 Calcium 8.2 L Corrected Calcium 9.2 Phosphorus 3.1 Magnesium 2.1 Total Bilirubin 1.1 AST 48 H ALT 42 Alkaline Phosphatase 91 Total Protein 4.9 L Albumin 2.8 L Globulin 2.1 L Albumin/Globulin Ratio 1.3 Blood Type Antibody Screen Crossmatch Blood Bank Wristband ID ABG Interpretation ABG results: 03/05/25 03/09/25 03/12/25 13:17 23:55 15:20 ABG pH 7.45 7.46 H ABG pCO2 27 L 36 ABG pO2 122 H 88 D ABG HCO3 18 L 25 ABG O2 Saturation 100 H 99 H ABG Base Excess -5 L 1 VBG pH 7.39 VBG pCO2 36 VBG pO2 31 VBG Base Excess -3 03/12/25 15:53 ABG pH ABG pCO2 ABG pO2 ABG HCO3 ABG O2 Saturation ABG Base Excess VBG pH 7.49 VBG pCO2 34 L VBG pO2 94 H VBG Base Excess 2 Assessment & Plan A&P Narrative ams mikhail htn abd perf, surgery and washout 03/12 noted so rx thru 03/17 planned. tomorrow pm ok to stop rx 79 yoa I can check in briefly on friday. stop it trial suggested 5d post surgery ok for soilage pj if washout done. rx is empiric for now as no cx from non sterile sites noted. all sterile sites neg. ordered w/u for ams for am. stopped the vanco Friday and mikhail is less slightly. Time Spent With Patient Time: Total time spent is greater than 50% in coordination of care (as documented) at patient's floor/unit and/or counseling patient:
[2025-03-16] MEDS: SODIUM CHLORIDE RT SOL 0.9% 3 ML NEBU INH (14:14)
[2025-03-16] MEDS: METOPROLOL SUCCINATE XL 25 MG TABCR PO (14:45)
--- NOTE | 2025-03-16 15:18 | PD.IMPROG ---
Documentation for date of: 03/16/25 Subjective Subjective Interval history: Patient evaluated WBC count 7.5 hemoglobin hematocrit 8.3 and 25.4 Exam Vital Signs Temp Pulse Resp BP Pulse Ox O2 Del Method O2 Flow Rate 97.5 F 114 H 24 H 160/117 H 100 Room Air 2 03/16/25 12:00 03/16/25 14:45 03/16/25 14:14 03/16/25 14:45 03/16/25 14:14 03/16/25 12:00 03/14/25 08:00 Objective Labs 03/16/25 05:24 03/16/25 05:24 Labs: Laboratory Results - last 24 hr 03/12/25 03/15/25 03/16/25 17:13 15:31 00:27 WBC RBC Hgb Hct MCV MCH MCHC RDW Std Deviation Plt Count Neut % (Auto) Lymph % (Auto) [place] % (Auto) Eos % (Auto) Baso % (Auto) Neut # (Auto) Lymph # (Auto) [place] # (Auto) Eos # (Auto) Baso # (Auto) Immature Gran # (Auto) Absolute Nucleated RBC Immature Gran % Nucleated RBC % APTT 49.3 H 58.4 H Sodium Potassium Chloride Carbon Dioxide Anion Gap BUN Creatinine Estim Creat Clear Calc eGFR BUN/Creatinine Ratio Glucose Calculated Osmolality Calcium Corrected Calcium Phosphorus Magnesium Total Bilirubin AST ALT Alkaline Phosphatase Total Protein Albumin Globulin Albumin/Globulin Ratio Blood Type O Positive Antibody Screen NEGATIVE Crossmatch See Detail Blood Bank Wristband ID Yes 03/16/25 03/16/25 05:24 10:15 WBC 7.5 RBC 2.72 L Hgb 8.3 L Hct 25.4 L MCV 93 MCH 30.5 MCHC 32.7 RDW Std Deviation 71.5 H Plt Count 271 Neut % (Auto) 73 Lymph % (Auto) 12 [place] % (Auto) 8 Eos % (Auto) 2 Baso % (Auto) 1 Neut # (Auto) 5.5 Lymph # (Auto) 0.9 L [place] # (Auto) 0.6 Eos # (Auto) 0.2 Baso # (Auto) 0.0 Immature Gran # (Auto) 0.36 H Absolute Nucleated RBC 0.00 Immature Gran % 5 H Nucleated RBC % 0 APTT 60.7 H Sodium 144 Potassium 3.8 Chloride 109 H Carbon Dioxide 24.6 Anion Gap 10 BUN 18 Creatinine 1.5 H Estim Creat Clear Calc 43.1 L eGFR 47 L BUN/Creatinine Ratio 12 Glucose 125 H Calculated Osmolality 289 Calcium 8.2 L Corrected Calcium 9.2 Phosphorus 3.1 Magnesium 2.1 Total Bilirubin 1.1 AST 48 H ALT 42 Alkaline Phosphatase 91 Total Protein 4.9 L Albumin 2.8 L Globulin 2.1 L Albumin/Globulin Ratio 1.3 Blood Type Antibody Screen Crossmatch Blood Bank Wristband ID Impressions Impression: Status post cecal perforation requiring exploratory arthrotomy and ilio ascending colon anastomosis doing well postoperatively Continue current management ABG Interpretation ABG results: 03/05/25 03/09/25 03/12/25 13:17 23:55 15:20 ABG pH 7.45 7.46 H ABG pCO2 27 L 36 ABG pO2 122 H 88 D ABG HCO3 18 L 25 ABG O2 Saturation 100 H 99 H ABG Base Excess -5 L 1 VBG pH 7.39 VBG pCO2 36 VBG pO2 31 VBG Base Excess -3 03/12/25 15:53 ABG pH ABG pCO2 ABG pO2 ABG HCO3 ABG O2 Saturation ABG Base Excess VBG pH 7.49 VBG pCO2 34 L VBG pO2 94 H VBG Base Excess 2 Assessment & Plan A&P Narrative ams mikhail htn abd perf, surgery and washout 03/12 noted so rx thru 03/17 planned. tomorrow pm ok to stop rx 79 yoa I can check in briefly on friday. stop it trial suggested 5d post surgery ok for soilage pj if washout done. rx is empiric for now as no cx from non sterile sites noted. all sterile sites neg. ordered w/u for ams for am. stopped the vanco Friday and mikhail is less slightly. Time Spent With Patient Time: Total time spent is greater than 50% in coordination of care (as documented) at patient's floor/unit and/or counseling patient:
[2025-03-17] VITALS (18 sets, daily range): BP systolic 137–166; BP diastolic 69–104; PULSE 95–117; RESP 16–25; TEMP 36.1–36.6; O2SAT 94–100; BMI 13.0
[2025-03-17] MEDS: PIPER/TAZO 3.375 GM PREMIX 3.375 G/50 ML BAG IV ×3 (05:24→21:23)
[2025-03-17 05:57] LABS: Basophils # (Auto) 0.1 Thou/mm3 (0.0-0.2); Basophils % (Auto) 1 % (0-2.5); Eosinophils # (Auto) 0.2 Thou/mm3 (0.0-0.5); Eosinophils % (Auto) 3 % (0-10); Hematocrit 24.2 % (41.0-53.0); Immature Granulocytes Auto 0.53 Thou/mm3 (0.00-0.00); Lymphocytes # (Auto) 0.9 Thou/mm3 (1.0-4.8); Lymphocytes % (Auto) 10 % (10-50); Mean Corpuscular HGB Conc 31.8 g/dl (31.0-37.0); Mean Corpuscular Hemoglobin 30.2 pg (25.0-35.0); Mean Corpuscular Volume 95 fL (80-100); Monocytes # (Auto) 0.8 Thou/mm3 (0.0-0.8); Monocytes % (Auto) 8 % (0-12); Neutrophils # (Auto) 6.7 Thou/mm3 (1.8-7.7); Neutrophils % (Auto) 73 % (37-80); Nucleated Red Blood Cell # 0.00 Thou/mm3 (0.00-0.00); Nucleated Red Blood Cell % 0 /100 WBC (0); Platelet Count 312 Thou/mm3 (140-440); RDW Standard Deviation 74.2 fL (35.1-43.9); Red Blood Count 2.55 Miln/mm3 (4.50-5.90); White Blood Count 9.2 Thou/mm3 (3.8-10.6)
[2025-03-17 06:12] LABS: Hemoglobin 7.7 g/dL (13.5-16.0)
[2025-03-17 06:14] LABS: Alanine Aminotransferase 31 U/L (10-49); Albumin, Serum 2.7 gm/dL (3.4-4.8); Albumin/Globulin Ratio 1.2 (1.2-2.2); Alkaline Phosphatase 85 U/L (46-116); Anion Gap 10 (7-16); Aspartate Amino Transferase 33 U/L (0-34); BUN/Creatinine Ratio 11 Ratio (12-20); Bilirubin,Total 1.1 mg/dL (0.3-1.2); Blood Urea Nitrogen 19 mg/dL (9-23); Calcium 8.4 mg/dL (8.3-10.6); Calcium (Corrected) 9.4 mg/dL (8.5-10.1); Carbon Dioxide 24.1 mMol/L (20.0-31.0); Chloride 108 mMol/L (98-107); Creatinine (Component) 1.7 mg/dL (0.6-1.3); Estimated Creatinine Clearance 38.0 mL/min (>60); Globulin 2.2 gm/dL (2.3-3.5); Glucose 146 mg/dL (74-106); Magnesium 1.6 mg/dL (1.6-2.6); Osmolality,Calculated 288 (275-295); Phosphorous 3.8 mg/dL (2.4-5.1); Potassium 4.4 mMol/L (3.4-5.1); Sodium 142 mMol/L (136-145); Total Protein 4.9 gm/dL (5.7-8.2); eGFR 40 See Note
[2025-03-17 06:16] LABS: Partial Thromboplastin Time 71.7 Seconds (22.0-36.0)
[2025-03-17] MEDS: LEVALBUTEROL RT 1.25 MG/0.5 ML NEBU INH ×3 (06:44→22:39)
[2025-03-17] MEDS: IPRATROPIUM RT 0.5 MG/ 2.5 ML NEBU INH ×3 (06:44→22:39)
--- NOTE | 2025-03-17 07:39 | PD.IMPROG ---
Documentation for date of: 03/17/25 Subjective Subjective Interval history: pt still in afibf ; HR 110-120 BP elevated s/p surgery Exam Vital Signs Temp Pulse Resp BP Pulse Ox O2 Del Method O2 Flow Rate 96.9 F 114 H 20 166/99 H 99 Room Air 2 03/17/25 04:00 03/17/25 06:44 03/17/25 06:44 03/17/25 04:00 03/17/25 06:44 03/17/25 04:00 03/14/25 08:00 Routine HEENT Exam Head: Present normocephalic and atraumatic Eye: Present EOMI and PERRL ENT: Present mucous membranes moist Routine Neck Exam Neck: Present supple and trachea midline Routine Respiratory Exam Respiratory: Present chest non-tender, lungs clear, normal breath sounds and no resp distress Routine Cardiovascular Exam Cardiovascular: Present RRR Routine Abdominal Exam Abdominal: Present soft and normoactive bowel sounds Routine Extremities Exam Extremities: Present full ROM Routine Skin Exam Skin: Present intact, dry and warm Routine Neurological Exam Neurological: Present alert, oriented X3 and CN II-XII intact Routine Psychiatric Exam Psychiatric: Present normal affect and normal thought process Objective Labs 03/17/25 05:01 03/17/25 05:01 Labs: Laboratory Results - last 24 hr 03/12/25 03/16/25 03/17/25 17:13 10:15 05:01 WBC 9.2 RBC 2.55 L Hgb 7.7 L Hct 24.2 L MCV 95 MCH 30.2 MCHC 31.8 RDW Std Deviation 74.2 H Plt Count 312 D Neut % (Auto) 73 Lymph % (Auto) 10 [place] % (Auto) 8 Eos % (Auto) 3 Baso % (Auto) 1 Neut # (Auto) 6.7 Lymph # (Auto) 0.9 L [place] # (Auto) 0.8 Eos # (Auto) 0.2 Baso # (Auto) 0.1 Immature Gran # (Auto) 0.53 H Absolute Nucleated RBC 0.00 Immature Gran % 6 H Nucleated RBC % 0 APTT 60.7 H 71.7 H D Sodium 142 Potassium 4.4 D Chloride 108 H Carbon Dioxide 24.1 Anion Gap 10 BUN 19 Creatinine 1.7 H Estim Creat Clear Calc 38.0 L eGFR 40 L BUN/Creatinine Ratio 11 L Glucose 146 H Calculated Osmolality 288 Calcium 8.4 Corrected Calcium 9.4 Phosphorus 3.8 Magnesium 1.6 Total Bilirubin 1.1 AST 33 ALT 31 Alkaline Phosphatase 85 Total Protein 4.9 L Albumin 2.7 L Globulin 2.2 L Albumin/Globulin Ratio 1.2 Blood Type O Positive Antibody Screen NEGATIVE Crossmatch See Detail Blood Bank Wristband ID Yes ABG Interpretation ABG results: 03/05/25 03/09/25 03/12/25 13:17 23:55 15:20 ABG pH 7.45 7.46 H ABG pCO2 27 L 36 ABG pO2 122 H 88 D ABG HCO3 18 L 25 ABG O2 Saturation 100 H 99 H ABG Base Excess -5 L 1 VBG pH 7.39 VBG pCO2 36 VBG pO2 31 VBG Base Excess -3 03/12/25 15:53 ABG pH ABG pCO2 ABG pO2 ABG HCO3 ABG O2 Saturation ABG Base Excess VBG pH 7.49 VBG pCO2 34 L VBG pO2 94 H VBG Base Excess 2 Assessment & Plan A&P Narrative continue amiodarone - pt has h/o chronic afib continue metoporlol on heparin stable hemodynamics Time Spent With Patient Time: Total time spent is greater than 50% in coordination of care (as documented) at patient's floor/unit and/or counseling patient:
[2025-03-17] MEDS: Magnesium Sulfate 4 GM Ivpb 4 GM/50 ML BAG IV (08:55)
[2025-03-17] MEDS: AMIODARONE HCL 200 MG TABLET PO ×2 (08:56→20:15)
[2025-03-17] MEDS: METOPROLOL SUCCINATE XL 25 MG TABCR PO (08:56)
--- NOTE | 2025-03-17 09:32 | ESPR_ITS ---
Documentation for date of: 03/17/25 Subjective Subjective Brief History: Patient was found to have GI bleeding that required coagulation of the AVM in the stomach and the colon. He denies any history of pain. He has not had any such pain in the past and he has stopped his bleeding. However his abdomen was distended and residents asked me to see if we can decompress the patient was seen by me earlier for abdominal distention and the resident was asking whether we could introduce an NG tube. I said yes at that time abdominal x-ray showed no abnormality other than dilated cecum. After decompression CT scan was obtained and showed free air around the cecum and under the diaphragm. Therefore second consultation was obtained for further management. Patient is possibly history revealed that he had extensive disease with a history of hypertension anemia GI bleed atrial fibrillation congestive heart failure CVA. Patient also has been admitted with altered mental status. When he came in he was admitted for weakness 1 week ago subsequently he was found to have marked anemia for which she was transfused 4 units of blood. Evaluation with the cardiothoracic icu rn showed that patient had some angiodysplasia in the ascending colon and in the stomach which was treated with coagulation. Patient seems to have had done reasonably well but recently started having pain and tenderness and abdominal distention. Because of the distention surgical consultation was obtained I and I saw him. We decided to put an NG tube. Meanwhile he is was found to have tenderness in the right lower quadrant and a CT scan showed possible free air. Narrative: The patient is not having any significant complaints. He is having bowel functions and is eating reasonably well. Exam Vital Signs Temp Pulse Resp BP Pulse Ox O2 Del Method O2 Flow Rate 97.4 F 103 H 21 H 151/102 H 100 Room Air 2 03/17/25 08:00 03/17/25 08:56 03/17/25 08:00 03/17/25 08:56 03/17/25 08:00 03/17/25 08:00 03/14/25 08:00 His vital signs are normal other than mild tachycardia Routine Abdominal Exam Comments: Abdominal examination shows no distention or tenderness Results Results: Laboratory Laboratory Narrative: Laboratory results show severe anemia with a hemoglobin of 7.7 Assessment & Plan Assessment Additional comments: Impression: Satisfactory recovery after right hemicolectomy Plan Plan: We shall close the incision because there are no signs of infection. We will do them under monitored anesthesia in the operating room today PROCEDURES: Procedures Exploratory laparotomy and resection of the cecum and the ascending colon and ilio ascending colostomy
--- NOTE | 2025-03-17 09:51 | ESPR_ITS ---
<Statement entered by Yara Winters MD - 03/17/25 22:22> Pt is seen at bedside, he is awake and alert and able to hold a pleasant conversation. Pt's is also at bedside. Pt's diet was advance yesterday to regular diet and pt had 2 bowel movements. Tolerated the diet well. Today is POD5 and Pt went for abdominal closure, per surgery recommendations will resume xarelto tonight and discontinue heparin drip. With the addition of metoprolol pt's HR is <110, will consider increasing the dose tomorrow if HR remained elevated. Patient was seen and examined by me personally. I have directly supervised and reviewed documentation by the team resident and agree with its findings. ------- Plan of care was discussed with the attending, Dr. Chelly Winters, PGY-2 Documentation for date of: 03/17/25 Subjective Subjective Interval history: Overnight events: No acute events overnight. Patient was seen and examined at bedside. AM vitals and labs reviewed. No complaints at this time. at bedside states that mentation seems to be improving. Left arm discoloration improving. Continues to be non-tender, swelling continues to improve. Abdomen still distended but non-tender. Did note decrease in H&H and slight increase in creatinine. EEG negative for epileptiform discharges. Vitamin B1 resulted as 6. Patient planned for incision closure today by General Surgery. Zosyn to stop after today's dose. Incentive spirometry ordered. Started patient on Lipitor 40mg HS. Started patient on thiamine supplement 100mg daily. Called general surgery about when to restart Xarelto and discharge, Dr. Smith stated patient is good to resume Xarelto and possible discharge tomorrow. Review of systems otherwise negative except for what is mentioned above. Exam Vital Signs Temp Pulse Resp BP Pulse Ox O2 Del Method O2 Flow Rate 97.4 F 103 H 21 H 151/102 H 100 Room Air 2 03/17/25 08:00 03/17/25 08:56 03/17/25 08:00 03/17/25 08:56 03/17/25 08:00 03/17/25 08:00 03/14/25 08:00 Narrative Exam Physical Exam: General: Alert, no acute distress. Skin: Warm, intact, no obvious rash. Head: Normocephalic, atraumatic. Eye: Normal conjunctiva, PERRL. Cardiovascular: Regular rate and rhythm, soft systolic murmur best heard over tricuspid/mitral region, +S1/S2. Respiratory: Lungs are clear to auscultation, respirations unlabored, no crackles, no wheezing. Gastrointestinal: Soft, nontender, non-distended. No guarding or rebound tenderness. Extremities: No edema, no cyanosis, no clubbing. Left arm slightly swollen, non- tender, and dark discoloring present. Right arm discoloring noted but not as extensive as left. Neuro: No focal deficits observed. Conversant, moving all extremities. No overt cerebellar signs/incoordination. Psychiatric: Cooperative, appropriate affect. Objective Labs 03/17/25 05:01 03/17/25 05:01 Labs: Laboratory Results - last 24 hr 03/16/25 03/17/25 10:15 05:01 WBC 9.2 RBC 2.55 L Hgb 7.7 L Hct 24.2 L MCV 95 MCH 30.2 MCHC 31.8 RDW Std Deviation 74.2 H Plt Count 312 D Neut % (Auto) 73 Lymph % (Auto) 10 Terry % (Auto) 8 Eos % (Auto) 3 Baso % (Auto) 1 Neut # (Auto) 6.7 Lymph # (Auto) 0.9 L Terry # (Auto) 0.8 Eos # (Auto) 0.2 Baso # (Auto) 0.1 Immature Gran # (Auto) 0.53 H Absolute Nucleated RBC 0.00 Immature Gran % 6 H Nucleated RBC % 0 APTT 60.7 H 71.7 H D Sodium 142 Potassium 4.4 D Chloride 108 H Carbon Dioxide 24.1 Anion Gap 10 BUN 19 Creatinine 1.7 H Estim Creat Clear Calc 38.0 L eGFR 40 L BUN/Creatinine Ratio 11 L Glucose 146 H Calculated Osmolality 288 Calcium 8.4 Corrected Calcium 9.4 Phosphorus 3.8 Magnesium 1.6 Total Bilirubin 1.1 AST 33 ALT 31 Alkaline Phosphatase 85 Total Protein 4.9 L Albumin 2.7 L Globulin 2.2 L Albumin/Globulin Ratio 1.2 ABG Interpretation ABG results: 03/05/25 03/09/25 03/12/25 13:17 23:55 15:20 ABG pH 7.45 7.46 H ABG pCO2 27 L 36 ABG pO2 122 H 88 D ABG HCO3 18 L 25 ABG O2 Saturation 100 H 99 H ABG Base Excess -5 L 1 VBG pH 7.39 VBG pCO2 36 VBG pO2 31 VBG Base Excess -3 03/12/25 15:53 ABG pH ABG pCO2 ABG pO2 ABG HCO3 ABG O2 Saturation ABG Base Excess VBG pH 7.49 VBG pCO2 34 L VBG pO2 94 H VBG Base Excess 2 Quality Measures Quality Measures none Advance care planning discussed with:: patient and spouse Assessment & Plan Assessment Current Active Medications: Generic Name Dose Route Start Last Admin Trade Name Freq PRN Reason Stop Dose Admin Acetaminophen 650 mg 03/05/25 15:28 03/11/25 01:34 Acetaminophen 325 Mg Tablet PO 04/04/25 15:27 650 mg Q6H PRN Administration Fever >101.5 or pain (1-3) Amiodarone HCl 200 mg 03/14/25 21:30 03/17/25 08:56 Amiodarone Hcl 200 Mg Tablet PO 04/13/25 21:29 200 mg BID CLAUDE Administration Piperacillin/Tazobactam/Dextrose 3.375 g in 50 mls @ 12.5 mls/hr 03/10/25 10:33 03/17/25 05:24 Zosyn IV 03/17/25 23:59 12.5 mls/hr Q8HR CLAUDE Administration Heparin Sodium/Dextrose 25,000 unit in 250 mls @ 10.004 mls/hr 03/14/25 16:00 03/17/25 09:25 Heparin In D5w Ivpb IV 03/28/25 15:59 0 units/kg/hr .Q24H CLAUDE 0 mls/hr Titration Protocol 11.35 UNITS/KG/HR Magnesium Sulfate 4 gm in 50 mls @ 12.5 mls/hr 03/17/25 07:34 03/17/25 08:55 Magnesium Sulfate Ivpb IV 03/17/25 11:33 12.5 mls/hr X1 ONE Administration Ipratropium [place] 0.5 mg 03/12/25 15:00 03/17/25 06:44 Ipratropium Rt 0.5 Mg/ 2.5 Ml Nebu INH 04/11/25 14:59 0.5 mg Q8HRRT CLAUDE Administration Labetalol HCl 10 mg 03/13/25 22:39 03/14/25 20:56 Labetalol Inj 5 Mg/Ml Vial 20 Ml IVP 04/12/25 09:59 10 mg Q4HR PRN Administration Sbp > 170 or DBP > 120 Levalbuterol HCl 1.25 mg 03/12/25 14:00 03/17/25 06:44 Levalbuterol Rt 1.25 Mg/0.5 Ml Nebu INH 04/11/25 13:59 1.25 mg Q8HR CLAUDE Administration Metoprolol Succinate 25 mg 03/16/25 14:00 03/17/25 08:56 Metoprolol Succinate Xl 25 Mg Tabcr PO 04/15/25 13:59 25 mg QDAY CLADUE Administration Ondansetron HCl 4 mg 03/05/25 13:06 Ondansetron Inj 2 Mg/Ml Inj 2 Ml IVP 04/04/25 13:05 Q4HR PRN NAUSEA OR VOMITING Pantoprazole Sodium 40 mg 03/12/25 12:45 03/17/25 08:54 Pantoprazole Inj 40 Mg Vial IVP 04/11/25 12:44 40 mg BID CLAUDE Administration Pharmacy Consult 1 each 03/14/25 05:23 Pharmacy Renal Dose Adjustment 1 Ea XX 04/13/25 05:22 PRN PRN CONSULT Sodium Chloride 3 ml 03/12/25 10:45 03/16/25 14:14 Sodium Chloride Rt Aleena 0.9% 3 Ml Nebu INH 04/11/25 10:44 3 ml PRN PRN Administration SOLN Plan Devan Rios is an 79M pmhx significant for A-fib on Xarelto, hypertension, RA, PMR, and CKDIIIa who presented to [facility] ED on 03/05 for generalized weakness and inability to walk, admitted for upper and lower GIB, course complicated by ischemic CVAs, and fevers and AMS c/f bowel perforation. #Bowel perforation, serosal tear, cecum #status post cecum resection #Pneumoperitoneum c/f bowel perforation #Suspected SBO vs ileus Overnight on 03/11, patient's abdomen acutely distended and tense c/f SBO vs ileus. Repeat KUB showed high grade mechanical SBO pattern. Patient is unable to communicate if he is passing gas, AOx2 to person and time only. CTAP showed pneumoperitoneum, suspicious for ischemic bowel including right colon and small bowel, significantly distended small bowel loops consistent with obstruction Plan: - Hold all oral medications - General surgery Dr. Smith consulted, performed exploratory laparotomy, found serosal tear in cecum, that was repaired with resection of the cecum and the ascending colon and ilio ascending colostomy - Plan for closure of incision 03/17 - Cardiac diet as general surgery recommends resumption of regular diet - Piperacillin/tazobactam (03/10-03/17) #Acute encephalopathy, likely multifactorial 2/2 #Aspiration pneumonia #Fever, improving Presented with fatigue that had sudden onset on 03/05 in the morning likely 2/2 symptomatic anemia. Rapid response x2 were called 03/08 and 03/10 for fever and acute AMS. Since, patient has had fluctuations of mental status return to baseline, then becoming altered. Patient had a fever on 03/08 initially, which has become more frequent over time. Tmax 102.4. Patient did have a sudden spike in WBC on second rapid response without leukocytosis, however this WBC quickly resolved back to baseline about 3 hours later. On 03/11 nursing recorded episode of vomiting, where patient likely aspirated as morning of 03/12, patient desaturated to 93% requiring 4L O2 oxymask. Acute encephalopathy likely multifactorial iso aspiration PNA and stroke. Fever ddx includes L arm cellulitis, meningitis, delayed nonhemolytic transfusion reaction, febrile nonhemolytic transfusion reaction, however improving on antibiotics. Dixon test neg, digoxin levels 0.7, folate and B12 wnl s/p B12 injection 03/09, T4 wnl, CRP and ESR wnl, cocci IgM and IgG neg, BCx and UCx NGTD Plan: - Piperacillin/tazobactam (03/10-03/17) - Start scheduled Duonebs q8h - Neurology consulted, appreciate recommendations - Infectious disease consulted, appreciate recommendations - Aspiration precautions elevate head of bed at 30 degrees - Patient passed swallow re-evaluation by speech therapy, recommends chopped diet #Ischemic CVA, embolic (frontal lobe, parietal lobe, basal ganglia, posterior left temporal lobe) #History of TIA #Transient aphasia Patient has hx of atrial fibrillation on Xarelto which was held on admission 03/05 due to GIB. Due to episodes of altered mental status starting 03/08, the patient had a code stroke called. CT head without contrast and CTA head and neck were negative for stroke. Neurology was consulted, and at the time CT head and CTA head and neck were negative for acute strokes. MRI was not recommended at that time due to concerns of an underlying metabolic encephalopathy. Received Xarelto 15 mg 03/10 and 03/11 03/11 MRI showed multiple embolic type acute infarcts in frontal, parietal lobes, basal ganglia and posterior left temporal lobe Plan: - Xarelto held, will start heparin gtt, plan to resume Xarelto upon general surgery recommendations - Lipitor 40 mg nightly resumed - Neurology consulted, recs appreciated #A-fib with RVR, rate not controlled, on Xarelto Patient has a history of atrial fibrillation and sees local government legislator Dr. Colon for management. Patient is currently on Xarelto and digoxin. Asked pharmacy about digoxin dosing and they confirmed 0.125 mg daily while patient's family states that the patient takes 0.125 mg Friday and Friday. Contacted Dr. Colon for confirmation, and he stated that the patient was okay taking 0.125 mg Friday. Patient's uncontrolled rate a-fib RVR is likely 2/2 presence of likely suspected SBO vs ileus CHADS-VASC score 4 (stroke risk 4.8% per year) HAS-BLED score 3 (bleed risk 5.8%, patient is at high risk for major bleeding) Plan: - Stopped patient's home digoxin - Consulted cardiology, Dr. Colon, recs appreciated - Amiodarone 200mg BID - Metoprolol XL 25mg daily - Discussed with general surgery, patient to resume Xarelto 20 mg HS #Upper and lower GI bleed 2/2 #Angiodysplasias of GI tract #Symptomatic anemia (resolved) Patient was brought to ED due to generalized fatigue and difficulty waking on the morning of 03/05 with melena started 2-3 weeks ago. Admission H&H 12/01/.2 s/p 2 prbc on 03/05 and 2 more pRBC on 03/07 with stabilization of H&H. Initial EGD showed angiodysplastic bleeding in gastric body and gastric fundus, requiring cautery and clipping. Repeat EGD 03/07, which showed no additional bleeding Colonoscopy planned for 03/08, delayed to 03/09, which showed moderate diverticulosis in sigmoid and descending colon, and multiple bleeding colonic angiodysplastic lesions that were treated with argon plasma coagulation Ddx for multiple angiodysplasias possibly secondary to subtherapeutic anticoagulation on Xarelto 15 mg instead of Xarelto 20 mg causing multiple emboli with possible embolisms to GI tract Plan: ? GI consulted, recs appreciated ? Patient to follow-up with Dr. Bauer, GI, and referral to perform capsule endoscopy #VANNA on CKD likely prerenal In the ED, the patient had a BUN of 85, creatinine of 2.1, and GFR of 31. On chart review, patient has CKDIII with baseline Cr 1.4-1.7. VANNA likely 2/2 acute loss of blood due to GI bleed, resulting in decreased blood flow to the kidneys, which resolved 03/09 03/12 Cr increased to 1.8, likely 2/2 to suspected SBO. Plan: - SBO treatment plan as above ? Renally dose medications ? Avoid nephrotoxic medications ? Will hold off on IV fluid hydration given mild heart failure congestion on repeat CXR #CHF (EF 55% 2024) Patient does not have a documented history of CHF, but patient takes furosemide 20 mg p.o. daily at home. Echocardiogram done on 04/30/2018 showed EF of 50% with moderate mitral regurgitation. Plan: ? Will hold patient's home furosemide given suspected SBO ? Strict ins and outs and daily weights ? Echocardiogram 03/11 showed negative bubble study, EF 55%, severely increased left atrial volume, aortic valve sclerosis without stenosis, mild mitral regurgitation, mild aortic regurgitation, mild tricuspid regurgitation, no thrombi. #Primary Hypertension Patient has a history of hypertension. Patient takes benazepril 40 mg daily and clonidine 0.2 mg 3 times daily at home. Plan: - Will hold patient's home antihypertensives of benazepril, clonidine, furosemide - Will monitor blood pressure closely - Metoprolol XL 25mg daily #Vitamin B12 deficiency Patient was noted to have B12 of 94 on 03/06. - B12 1,000 mcg injection, repeat B12 03/14 noted to be 1484. #Vitamin B1 deficiency Patient noted to have vitamin B1 of 6 as measured on 03/11. Might potentially be contributing to episodes of AMS in the patient. Patient does have a history of frequent alcohol consumption. - Thiamine supplement 100 mg daily DVT Prophylaxis: Heparin GI Prophylaxis: Protonix Bowel: N/A Diet: Cardiac Justin: N/A Lines: Peripheral IV Antibiotics: Zosyn (03/10-03/17) Code Status: FULL Reason for Hospitalization: GI bleed Other Barriers to Discharge: Post-op recovery Patient plan of care was discussed with the senior resident Dr. Winters (PGY-2) and attending physician Dr. Chelly Levine, PGY1 Attending Provider Attestation/Addendum I attest that I was physically present for the evaluation, physical examination, lab and imaging review of the patient with the residents. I discussed the case with the residents and agree with the findings and plans of care as documented above. Patient underwent secondary closure of the abdominal incision today with general surgery. Tolerated the procedure well. EEG came back negative. Hemoglobin noted to be slightly lower 7.7 compared to 8.3 yesterday. No signs of active bleeding, we will continue to monitor closely. Continues to be on amiodarone and metoprolol for A-fib, currently rate controlled. There is also slight increase in creatinine from 1.5-1.7, continue to monitor closely. Patient noted to have low thiamine, started on supplement. Patient will finish his IV Zosyn today, started on statin. Will resume Xarelto tomorrow morning. Neurology following closely, appreciate recommendations. Aurelia Spaulding MD
[2025-03-17 10:21] LABS: Vitamin B1 (Thiamine)* 6 nmol/L (8-30)
--- NOTE | 2025-03-17 12:53 | PD.SUROPNT ---
Date of Procedure 03/17/25 Pre Op Diagnosis Infected abdominal wound Post Op Diagnosis Same Procedure Secondary closure of the abdominal incision Findings Patient's wound was left open for secondary closure because of the contamination. Procedure Description After the patient was brought to the operating room he was given sedation then the wound over the abdomen was washed with Betadine solution and draped in a sterile manner. Timeout was performed. I irrigated the wound with bulb syringe and Yankauer suction and cleaned the wound. I introduced the suction underneath the niya to make sure there is no collection. Then I closed the wound with interrupted 4-0 nylon stitches. I used local anesthesia for the case with half percent Marcaine with epi. At the end patient had Adaptic and 4 x 4 gauze to the wound. Patient tolerated procedure well. Anesthesia MAC Pathology / specimen None Estimated Blood Loss 0 Surgeon Kwesi Acharya MD Surgical Staff Operation Date: 03/17/25 12:15 <No data on this case meets the specified criteria>
--- NOTE | 2025-03-17 13:30 | SUR.PHASEI ---
pt awake and alert, breathing unlabored on room air. v/s stable. pt dressing to abd cdi. report called to Dede LARA. pt will be transferred to room at this time.
--- NOTE | 2025-03-17 13:44 | PC.SS ---
Walkers The diagnosis creates mobility limitation that significantly impairs ability to participate in the patients activities of daily living either in their entirety, or in a reasonable time frame. Also the patient is able to safely use the walker and the patient?s mobility is sufficiently resolved with the use of the walker and cane has been ruled out.
--- NOTE | 2025-03-17 14:21 | PD.RESPRO ---
Documentation for date of: 03/17/25 Subjective Subjective Interval history: Patient is an 79-year-old male with a past medical history of hypertension, hyperlipidemia, previous TIA (2018), atrial fibrillation home medication of Xarelto, history of polymyalgia rheumatica, and history of alcohol use disorder previous MRI in 2018 noted significant atrophy in the posterior fossa, BPH, and active smoker who was admitted for upper GI bleed now s/p colonoscopy and endoscopy-angiodysplastic lesion. MRI on (03/11/2025): noted multiple emoblic type infracts. 03/14/2025: Incision site continues to be partially open and currently gauze packing. No major bleeding reported. Patient went for ex lap on 03/12/2025, s/p resection of the cecum, ascending colon, and ilio ascending colostomy Day 2 secondary to perforated cecum. Patient was advanced to clear liquid diet per surgery recommendations. Holding off Xarelto and will transition to heparin per surgery recommendations. Patient waxes and wanes, patient is alert to self, location, and year, but unable to care on a full conversation. Patient unable to draw a clock. 03/15/2025: Patient continues to wax and wane, currently alert and orientated X 1. Patient is now on clear liquid diet, tolerating diet well. Patient becomes anxious when not present in room. Patient likely has underlying hospital delirium given increased confusion. Patient remains off Xarelto and Aspirin, based on general surgery discretion. 03/16/2025: No overnight events. Possible owning, as charanjit continues to spend most mornings taking naps and is more active at night. Patient continues to wax and wane in terms of mentation. Alert and Orientated X 1. Not orientated to time or location today. Abdomen appeared hyper-resonant, patient denied abdominal pain and is passing flatulence and bowel movements. May benefit from gas x. Heparin on board. Resume anticoagulation based on primary teams and general surgery discretion. Hemoglobing has trended down from 9.4-->to 8.3 over the last 4 days. continue to monitor for signs of bleeding. 03/17/2025: No overnight events. Pateint continues to wax and wane, today alert and orientated X 3. Patinet had one bowel movement yesterday, soft non bloody. Patient is now s/p secondary closure of the abdominal incision (03/17/2025). Tolerated lunch well. Hgb and Hct continues to decline from 8.3-->7.7. Consider repeat type and screen. No changes from neurology stand point. Given increased risk of bleeding, heparin on board, based on surgery and primary team discretion to resume Aspirin and Xarelto at a later day. Exam Vital Signs Temp Pulse Resp BP Pulse Ox O2 Del Method O2 Flow Rate 97.4 F 95 20 159/86 H 95 Room Air 3 03/17/25 13:20 03/17/25 13:20 03/17/25 13:20 03/17/25 13:20 03/17/25 13:20 03/17/25 12:00 03/17/25 13:05 Narrative Exam General Appearance: Alert & Oriented X 3 but waxes and wanes, well-nourished male who is lying in bed in no acute distress HEENT: Skull symmetrical and atraumatic. Conjunctivae pale pink and moist. Pupils equal, round, reactive to light and accommodation (PERRL). External ear without lesion or discharge. Straight, nares patient, mucosa pink, no discharge. No thyroid nodule appreciated. No cervical lymphadenopathy. Cardio: Normal Rate and Rhythm with S1 and S2 heart sounds. No murmurs or extra heart sounds auscultated. No bruits on carotid auscultation. No peripheral edema or cyanosis. Lungs: Symmetric with good expansion. Chest and back non-tender. Breath sounds vesicular without crackles, wheezing or rhonchi Abdomen: no tenderness, left sided surgical niya that appear to be healing now with bandages all around surgical site, mild-distended, Normal Reactive Bowel Sounds, hyper-resonant. Neuro: Yes Alert, Yes cooperative, Yes oriented to person, NO place, and NO time. dysarthic. CN grossly intact. Upper motor strength 5/5 and Lower motor strength 5/5. Sensation intact. Objective Labs 03/17/25 05:01 03/17/25 05:01 Labs: Laboratory Results - last 24 hr 03/11/25 03/17/25 05:27 05:01 WBC 9.2 RBC 2.55 L Hgb 7.7 L Hct 24.2 L MCV 95 MCH 30.2 MCHC 31.8 RDW Std Deviation 74.2 H Plt Count 312 D Neut % (Auto) 73 Lymph % (Auto) 10 [place] % (Auto) 8 Eos % (Auto) 3 Baso % (Auto) 1 Neut # (Auto) 6.7 Lymph # (Auto) 0.9 L [place] # (Auto) 0.8 Eos # (Auto) 0.2 Baso # (Auto) 0.1 Immature Gran # (Auto) 0.53 H Absolute Nucleated RBC 0.00 Immature Gran % 6 H Nucleated RBC % 0 APTT 71.7 H D Sodium 142 Potassium 4.4 D Chloride 108 H Carbon Dioxide 24.1 Anion Gap 10 BUN 19 Creatinine 1.7 H Estim Creat Clear Calc 38.0 L eGFR 40 L BUN/Creatinine Ratio 11 L Glucose 146 H Calculated Osmolality 288 Calcium 8.4 Corrected Calcium 9.4 Phosphorus 3.8 Magnesium 1.6 Total Bilirubin 1.1 AST 33 ALT 31 Alkaline Phosphatase 85 Total Protein 4.9 L Albumin 2.7 L Globulin 2.2 L Albumin/Globulin Ratio 1.2 Thiamine (Vit B1) Bro 6 L ABG Interpretation ABG results: 03/05/25 03/09/25 03/12/25 13:17 23:55 15:20 ABG pH 7.45 7.46 H ABG pCO2 27 L 36 ABG pO2 122 H 88 D ABG HCO3 18 L 25 ABG O2 Saturation 100 H 99 H ABG Base Excess -5 L 1 VBG pH 7.39 VBG pCO2 36 VBG pO2 31 VBG Base Excess -3 03/12/25 15:53 ABG pH ABG pCO2 ABG pO2 ABG HCO3 ABG O2 Saturation ABG Base Excess VBG pH 7.49 VBG pCO2 34 L VBG pO2 94 H VBG Base Excess 2 Quality Measures Quality Measures none Advance care planning discussed with:: patient Assessment & Plan Assessment Current Active Medications: Generic Name Dose Route Start Last Admin Trade Name Freq PRN Reason Stop Dose Admin Acetaminophen 650 mg 03/05/25 15:28 03/11/25 01:34 Acetaminophen 325 Mg Tablet PO 04/04/25 15:27 650 mg Q6H PRN Administration Fever >101.5 or pain (1-3) Amiodarone HCl 200 mg 03/14/25 21:30 03/17/25 08:56 Amiodarone Hcl 200 Mg Tablet PO 04/13/25 21:29 200 mg BID CLAUDE Administration Atorvastatin Calcium 40 mg 03/17/25 21:00 Atorvastatin Calcium 20 Mg Tablet PO 04/16/25 20:59 HS CLAUDE Piperacillin/Tazobactam/Dextrose 3.375 g in 50 mls @ 12.5 mls/hr 03/10/25 10:33 03/17/25 05:24 Zosyn IV 03/17/25 23:59 12.5 mls/hr Q8HR CLAUDE Administration Heparin Sodium/Dextrose 25,000 unit in 250 mls @ 10.004 mls/hr 03/14/25 16:00 03/17/25 09:25 Heparin In D5w Ivpb IV 03/28/25 15:59 0 units/kg/hr .Q24H CLAUDE 0 mls/hr Titration Protocol 11.35 UNITS/KG/HR Ipratropium [place] 0.5 mg 03/12/25 15:00 03/17/25 06:44 Ipratropium Rt 0.5 Mg/ 2.5 Ml Nebu INH 04/11/25 14:59 0.5 mg Q8HRRT CLAUDE Administration Labetalol HCl 10 mg 03/13/25 22:39 03/14/25 20:56 Labetalol Inj 5 Mg/Ml Vial 20 Ml IVP 04/12/25 09:59 10 mg Q4HR PRN Administration Sbp > 170 or DBP > 120 Levalbuterol HCl 1.25 mg 03/12/25 14:00 03/17/25 06:44 Levalbuterol Rt 1.25 Mg/0.5 Ml Nebu INH 04/11/25 13:59 1.25 mg Q8HR CLAUDE Administration Metoprolol Succinate 25 mg 03/16/25 14:00 03/17/25 08:56 Metoprolol Succinate Xl 25 Mg Tabcr PO 04/15/25 13:59 25 mg QDAY CLAUDE Administration Ondansetron HCl 4 mg 03/05/25 13:06 Ondansetron Inj 2 Mg/Ml Inj 2 Ml IVP 04/04/25 13:05 Q4HR PRN NAUSEA OR VOMITING Pantoprazole Sodium 40 mg 03/12/25 12:45 03/17/25 08:54 Pantoprazole Inj 40 Mg Vial IVP 04/11/25 12:44 40 mg BID CLAUDE Administration Pharmacy Consult 1 each 03/14/25 05:23 Pharmacy Renal Dose Adjustment 1 Ea XX 09/17/25 05:22 PRN PRN CONSULT Sodium Chloride 3 ml 03/12/25 10:45 03/16/25 14:14 Sodium Chloride Rt Aleena 0.9% 3 Ml Nebu INH 04/11/25 10:44 3 ml PRN PRN Administration SOLN Thiamine HCl 100 mg 03/17/25 13:00 Thiamine 100 Mg Tablet PO 04/16/25 12:59 QDAY CLAUDE Plan Patient is an 79-year-old male with a past medical history of hypertension, hyperlipidemia, previous TIA (2018), atrial fibrillation home medication of Xarelto, history of polymyalgia rheumatica, and history of alcohol use disorder previous MRI in 2018 noted significant atrophy in the posterior fossa, BPH, and active smoker. Corey was admitted on 03/05/2025 for acute blood loss anemia, symptomatic, likely secondary to upper GI bleed s/p EGD and colonoscopy. #Acute Encephloapthy, secondary to multiple emoblic-type acute infarcts. #History of TIA #History of Ischemic stroke, right basal ganglia #Aphasia #Generalized Weakness Patient presented to the emergency room with chief complain of altered mental status, slurred speech, blank stare, and generalized weakness. Patient has not returned to baseline since then. Patient continues to have difficulty word finding. Per at bedside, denied new medication, denied seizure like activity, denied head trauma. acute encephalopathy likely secondary to acute embolic stroke and underlying hospital delirium Diagnostics: MRI brain (03/11/2025): multiple tiny embolic type foci of restricted diffusion with week matching ADC signal deficits in the frontal parietal lobes basal ganglia and posterior left temporal lobe. Increased white matter signal moderate CT head (03/08/2025): Negative for acute hemorrhage. Old infarct in the right basal ganglia CTA Head/Neck: negative Blood cultures Negative B12: 94 (L) TSH 1.51 (03/06/2025) Lipid Panel (03/06/2025): Triglycerides 165, Cholesterol 58, lDL 11, HDL 14 ASCVD: not applicable given age Plan -Given resection, anticoagulation managed by surgery team and primary team -Atorvastatin 40 mg PO HS, holding off Aspirin & Xarelto given recent acute blood loss anemia & surgery s/ resection -Heparin by primary team/surgery -Plead follow delirium precautions -please avoid diphenhydramine if possible for agitation -Head of the bed at 30 degrees -Replace electrolytes as needed -Continue to monitor for signs of infection -Continue to follow blood cultures #Bowel perforation, serosal tear, cecum #S/p secondary closure of the abdominal incision, #status post cecum resection #Pneumoperitoneum c/f bowel perforation #Suspected SBO vs ileus #Sepsis, suspected #SIRs #Acute blood loss anemia, likely secondary to upper GI bleed #Angidysplasias SOFA 4 points #Atrial Fibrillation, on Amiodarone #Atrial Fibrillation, rvr, resolved. #VANNA on CKD #HLD #HTN #Pulmonary Vascular Congestion #Mild Concentric LV Hypertrophy #Smoker #Alcohol Use Disorder - The patient's plan was discussed with attending Dr. Guillermo Bryan MD PGY2 Internal Medicine Attending Provider Attestation/Addendum I personally have seen and examined the patient at the bedside and agree with resident's findings, assessment and plan of care. Impression: Mental status: Fluctuating wildly Recent ischemic CVA secondary to atrial fibrillation without any focal deficit Vascular dementia Small bowel obstruction status post a recent surgery followed by closure of the wound today Plan/recommendations Continue with the current management, wait until surgery clears him for resuming Xarelto Likely inpatient rehab placement when he is medically and surgically stable.
[2025-03-17] MEDS: THIAMINE 100 MG TABLET PO (14:34)
--- NOTE | 2025-03-17 15:32 | PC.SS ---
DME referral submitted on [facility]. Results pending. Documentation placed in patient's chart.
--- NOTE | 2025-03-17 16:48 | PC.SS ---
Rounding Note: Patient to undergo procedure with Dr. Smith today.
[2025-03-17] MEDS: RIVAROXABAN 10 MG TABLET 20 MG PO (17:41)
--- NOTE | 2025-03-17 19:42 | ESPR_ITS ---
Documentation for date of: 03/17/25 Subjective Subjective Interval history: Transverse abdominal incision closed there was left open because of the contamination Patient ate well today both lunch and dinner Family was at the bedside Exam Vital Signs Temp Pulse Resp BP Pulse Ox O2 Del Method O2 Flow Rate 97.6 F 107 H 25 H 139/92 H 98 Room Air 3 03/17/25 16:08 03/17/25 16:08 03/17/25 16:08 03/17/25 16:08 03/17/25 16:08 03/17/25 16:08 03/17/25 13:05 Objective Labs 03/17/25 05:01 03/17/25 05:01 Labs: Laboratory Results - last 24 hr 03/11/25 03/17/25 05:27 05:01 WBC 9.2 RBC 2.55 L Hgb 7.7 L Hct 24.2 L MCV 95 MCH 30.2 MCHC 31.8 RDW Std Deviation 74.2 H Plt Count 312 D Neut % (Auto) 73 Lymph % (Auto) 10 [place] % (Auto) 8 Eos % (Auto) 3 Baso % (Auto) 1 Neut # (Auto) 6.7 Lymph # (Auto) 0.9 L [place] # (Auto) 0.8 Eos # (Auto) 0.2 Baso # (Auto) 0.1 Immature Gran # (Auto) 0.53 H Absolute Nucleated RBC 0.00 Immature Gran % 6 H Nucleated RBC % 0 APTT 71.7 H D Sodium 142 Potassium 4.4 D Chloride 108 H Carbon Dioxide 24.1 Anion Gap 10 BUN 19 Creatinine 1.7 H Estim Creat Clear Calc 38.0 L eGFR 40 L BUN/Creatinine Ratio 11 L Glucose 146 H Calculated Osmolality 288 Calcium 8.4 Corrected Calcium 9.4 Phosphorus 3.8 Magnesium 1.6 Total Bilirubin 1.1 AST 33 ALT 31 Alkaline Phosphatase 85 Total Protein 4.9 L Albumin 2.7 L Globulin 2.2 L Albumin/Globulin Ratio 1.2 Thiamine (Vit B1) Bro 6 L Impressions Impression: Cecal perforation status post limited resection with ileal ascending colon anastomosis status post closure of the wound Doing well postoperatively Continue current management ABG Interpretation ABG results: 03/05/25 03/09/25 03/12/25 13:17 23:55 15:20 ABG pH 7.45 7.46 H ABG pCO2 27 L 36 ABG pO2 122 H 88 D ABG HCO3 18 L 25 ABG O2 Saturation 100 H 99 H ABG Base Excess -5 L 1 VBG pH 7.39 VBG pCO2 36 VBG pO2 31 VBG Base Excess -3 03/12/25 15:53 ABG pH ABG pCO2 ABG pO2 ABG HCO3 ABG O2 Saturation ABG Base Excess VBG pH 7.49 VBG pCO2 34 L VBG pO2 94 H VBG Base Excess 2 Assessment & Plan A&P Narrative continue amiodarone - pt has h/o chronic afib continue metoporlol on heparin stable hemodynamics Time Spent With Patient Time: Total time spent is greater than 50% in coordination of care (as documented) at patient's floor/unit and/or counseling patient:
[2025-03-17] MEDS: ATORVASTATIN CALCIUM 20 MG TABLET 40 MG PO (20:15)
[2025-03-18] VITALS (21 sets, daily range): BP systolic 124–155; BP diastolic 82–99; PULSE 94–122; RESP 18–29; TEMP -12.3–37.2; O2SAT 93–100; BMI 15.0
[2025-03-18] MEDS: PIPER/TAZO 3.375 GM PREMIX 3.375 G/50 ML BAG IV (06:09)
[2025-03-18 06:17] LABS: Basophils # (Auto) 0.1 Thou/mm3 (0.0-0.2); Basophils % (Auto) 0 % (0-2.5); Eosinophils # (Auto) 0.1 Thou/mm3 (0.0-0.5); Eosinophils % (Auto) 1 % (0-10); Hematocrit 22.7 % (41.0-53.0); Immature Granulocytes Auto 0.51 Thou/mm3 (0.00-0.00); Lymphocytes # (Auto) 0.7 Thou/mm3 (1.0-4.8); Lymphocytes % (Auto) 6 % (10-50); Mean Corpuscular HGB Conc 32.2 g/dl (31.0-37.0); Mean Corpuscular Hemoglobin 30.7 pg (25.0-35.0); Mean Corpuscular Volume 95 fL (80-100); Monocytes # (Auto) 0.9 Thou/mm3 (0.0-0.8); Monocytes % (Auto) 7 % (0-12); Neutrophils # (Auto) 10.2 Thou/mm3 (1.8-7.7); Neutrophils % (Auto) 82 % (37-80); Nucleated Red Blood Cell # 0.00 Thou/mm3 (0.00-0.00); Nucleated Red Blood Cell % 0 /100 WBC (0); Platelet Count 282 Thou/mm3 (140-440); RDW Standard Deviation 75.7 fL (35.1-43.9); Red Blood Count 2.38 Miln/mm3 (4.50-5.90); White Blood Count 12.5 Thou/mm3 (3.8-10.6)
[2025-03-18 06:18] LABS: Hemoglobin 7.3 g/dL (13.5-16.0)
[2025-03-18 06:26] LABS: HSV1 IgG Type Specific Ab* 29.80 INDEX; HSV2 IgG Type Specific Ab* <0.90 INDEX
[2025-03-18 06:47] LABS: Partial Thromboplastin Time 37.3 Seconds (22.0-36.0)
[2025-03-18] MEDS: IPRATROPIUM RT 0.5 MG/ 2.5 ML NEBU INH ×3 (06:54→22:59)
[2025-03-18] MEDS: LEVALBUTEROL RT 1.25 MG/0.5 ML NEBU INH ×3 (06:55→23:00)
[2025-03-18 07:03] LABS: Alanine Aminotransferase 28 U/L (10-49); Albumin, Serum 2.9 gm/dL (3.4-4.8); Albumin/Globulin Ratio 1.1 (1.2-2.2); Alkaline Phosphatase 83 U/L (46-116); Anion Gap 11 (7-16); Aspartate Amino Transferase 28 U/L (0-34); BUN/Creatinine Ratio 9 Ratio (12-20); Bilirubin,Total 1.0 mg/dL (0.3-1.2); Blood Urea Nitrogen 18 mg/dL (9-23); Calcium 8.0 mg/dL (8.3-10.6); Calcium (Corrected) 8.9 mg/dL (8.5-10.1); Carbon Dioxide 23.8 mMol/L (20.0-31.0); Chloride 106 mMol/L (98-107); Creatinine (Component) 2.0 mg/dL (0.6-1.3); Estimated Creatinine Clearance 32.3 mL/min (>60); Globulin 2.6 gm/dL (2.3-3.5); Glucose 140 mg/dL (74-106); Magnesium 2.2 mg/dL (1.6-2.6); Osmolality,Calculated 285 (275-295); Phosphorous 3.2 mg/dL (2.4-5.1); Potassium 4.1 mMol/L (3.4-5.1); Sodium 141 mMol/L (136-145); Total Protein 5.5 gm/dL (5.7-8.2); eGFR 33 See Note
[2025-03-18] MEDS: METOPROLOL SUCCINATE XL 25 MG TABCR PO ×2 (09:09→12:28)
[2025-03-18] MEDS: THIAMINE 100 MG TABLET PO (09:09)
[2025-03-18] MEDS: AMIODARONE HCL 200 MG TABLET PO ×2 (09:09→20:27)
--- NOTE | 2025-03-18 09:18 | PD.IDPROG ---
Subjective Subjective Interval history: stil here, abx shoudl have stopped yesterday as noted. still on board. Exam Vital Signs Temp Pulse Resp BP Pulse Ox O2 Del Method O2 Flow Rate 97.9 F 122 H 28 H 145/90 H 94 L Room Air 95 03/18/25 08:30 03/18/25 09:09 03/18/25 08:30 03/18/25 09:09 03/18/25 08:30 03/18/25 08:30 03/18/25 06:55 Narrative Exam alert. wants home. agrees. home likely next stop. abd remains benign Objective - Internal Medicine Labs 03/18/25 05:20 03/18/25 05:20 Labs: Laboratory Results - last 24 hr 03/11/25 03/11/25 03/18/25 05:27 13:10 05:20 WBC 12.5 H RBC 2.38 L Hgb 7.3 L Hct 22.7 L MCV 95 MCH 30.7 MCHC 32.2 RDW Std Deviation 75.7 H Plt Count 282 D Neut % (Auto) 82 H Lymph % (Auto) 6 L [place] % (Auto) 7 Eos % (Auto) 1 Baso % (Auto) 0 Neut # (Auto) 10.2 H Lymph # (Auto) 0.7 L [place] # (Auto) 0.9 H Eos # (Auto) 0.1 Baso # (Auto) 0.1 Immature Gran # (Auto) 0.51 H Absolute Nucleated RBC 0.00 Immature Gran % 4 H Nucleated RBC % 0 APTT 37.3 H D Sodium 141 Potassium 4.1 Chloride 106 Carbon Dioxide 23.8 Anion Gap 11 BUN 18 Creatinine 2.0 H Estim Creat Clear Calc 32.3 L eGFR 33 L BUN/Creatinine Ratio 9 L Glucose 140 H Calculated Osmolality 285 Calcium 8.0 L Corrected Calcium 8.9 Phosphorus 3.2 Magnesium 2.2 Total Bilirubin 1.0 AST 28 ALT 28 Alkaline Phosphatase 83 Total Protein 5.5 L Albumin 2.9 L Globulin 2.6 Albumin/Globulin Ratio 1.1 L Thiamine (Vit B1) Bro 6 L HSV I IgG Ab 29.80 H HSV II IgG <0.90 ABG Interpretation ABG results: 03/05/25 03/09/25 03/12/25 13:17 23:55 15:20 ABG pH 7.45 7.46 H ABG pCO2 27 L 36 ABG pO2 122 H 88 D ABG HCO3 18 L 25 ABG O2 Saturation 100 H 99 H ABG Base Excess -5 L 1 VBG pH 7.39 VBG pCO2 36 VBG pO2 31 VBG Base Excess -3 03/12/25 15:53 ABG pH ABG pCO2 ABG pO2 ABG HCO3 ABG O2 Saturation ABG Base Excess VBG pH 7.49 VBG pCO2 34 L VBG pO2 94 H VBG Base Excess 2 Assessment & Plan A&P Narrative abd catastrophe emergent surgeyr and partial colectomy for perforation with soilage noted. washed out. ckd stopped empiric abx per prior plan. will see again prn if other providers reall want o go longer. remind them of the stop it trial results. but I do not object to home on nothing if that is next stop for him. Time Spent With Patient Time: Total time spent is greater than 50% in coordination of care (as documented) at patient's floor/unit and/or counseling patient:
--- NOTE | 2025-03-18 10:44 | PC.CC ---
Addendum entered by Dilma Estes 03/18/25 15:47: Per aftermoon rounding, pt is VANNA, hemo is trending down and Dr. Bauer will be reached out for recommendations. No d/c date at this time. Original Note: [facility] accepted pts insurance and will fill DME request.
--- NOTE | 2025-03-18 11:06 | ESPR_ITS ---
<Statement entered by Yara Winters MD - 03/18/25 22:19> Pt is seen at bedside, Hgb is down trended, per chart reviewing reported bowel movement was dark, will touch base with GI. Per GI recommendations will continue xarelto (no need to discontinued). Pt Cr also slightly uptrended to 2.0, will give gentle fluids 500ml and encourage pt to increase oral intake. Repeat H-H wads HGb 6.9, I unit of pRBCs is transfused and will continue to monitor post transfusion H-H is ordered. GI is made aware, recommended to transfuse 1 unit and continue xarelto. Patient was seen and examined by me personally. I have directly supervised and reviewed documentation by the team resident and agree with its findings. ------- Plan of care was discussed with the attending, Dr. Chelly Winters, PGY-2 Documentation for date of: 03/18/25 Subjective Subjective Interval history: No acute overnight events. Patient is seen and examined at bedside with . Patient is ANO x 2 only [address]. Reports feeling tired and falls asleep mid interview. Per at bedside patient seems more tired than yesterday, likely due to the fact that he had surgery and many family members have come to see him and he is exhausted. Patient denies lightheadedness, dizziness, pain at surgical site or fever. Per nursing and , last bowel movement yesterday, was loose and green and black. Hemoglobin slowly downtrending 8.5->8.3->7.7->7.3, suspicion of possible new GIB vs post surgical changes. Follow-up p.m. H&H. Dr. Bauer made aware, recommends to continue Xarelto and he will reassess. Creatinine today increased from 1.7- 2.0. Likely secondary to dehydration as patient has been n.p.o. with limited oral intake. Iso HFpEF, will start only 500 cc LR bolus at 75 cc an hour. Follow-up CMP tomorrow morning. Per ID Dr Zapien, discontinue Zosyn and will likely not need to go home on antibiotics. Regular diet restarted by general surgery Dr. Smith which patient is tolerating well. Patient heart rate still 100- 120s, increase metoprolol XL 25 mg to metoprolol XL 50 mg, Dr. Colon made aware and agreeable. Exam Vital Signs Temp Pulse Resp BP Pulse Ox O2 Del Method O2 Flow Rate 97.9 F 122 H 28 H 145/90 H 94 L Room Air 95 03/18/25 08:30 03/18/25 09:09 03/18/25 08:30 03/18/25 09:09 03/18/25 08:30 03/18/25 08:30 03/18/25 06:55 Narrative Exam General: Alert, no acute distress. AOx2 to person and place, drowsy Skin: Warm, intact, no obvious rash. Head: Normocephalic, atraumatic. Eye: Normal conjunctiva, PERRL. Cardiovascular: irregular rhythm, tachycardic, soft systolic murmur best heard over tricuspid/mitral region, +S1/S2. Respiratory: Lungs are clear to auscultation, respirations unlabored, no crackles, no wheezing. Gastrointestinal: Soft, nontender, non-distended. No guarding or rebound tenderness. Sterile gauze and abdomen wrap in place over surgical wound Extremities: No edema, no cyanosis, no clubbing. Left arm slightly swollen, non- tender, and dark discoloring present. Right arm discoloring noted but not as extensive as left. Neuro: No focal deficits observed. Conversant, moving all extremities. No overt cerebellar signs/incoordination. Psychiatric: Cooperative, appropriate affect. Objective Labs 03/19/25 09:27 03/19/25 09:27 Labs: Laboratory Results - last 24 hr 03/11/25 03/18/25 13:10 05:20 WBC 12.5 H RBC 2.38 L Hgb 7.3 L Hct 22.7 L MCV 95 MCH 30.7 MCHC 32.2 RDW Std Deviation 75.7 H Plt Count 282 D Neut % (Auto) 82 H Lymph % (Auto) 6 L [place] % (Auto) 7 Eos % (Auto) 1 Baso % (Auto) 0 Neut # (Auto) 10.2 H Lymph # (Auto) 0.7 L [place] # (Auto) 0.9 H Eos # (Auto) 0.1 Baso # (Auto) 0.1 Immature Gran # (Auto) 0.51 H Absolute Nucleated RBC 0.00 Immature Gran % 4 H Nucleated RBC % 0 APTT 37.3 H D Sodium 141 Potassium 4.1 Chloride 106 Carbon Dioxide 23.8 Anion Gap 11 BUN 18 Creatinine 2.0 H Estim Creat Clear Calc 32.3 L eGFR 33 L BUN/Creatinine Ratio 9 L Glucose 140 H Calculated Osmolality 285 Calcium 8.0 L Corrected Calcium 8.9 Phosphorus 3.2 Magnesium 2.2 Total Bilirubin 1.0 AST 28 ALT 28 Alkaline Phosphatase 83 Total Protein 5.5 L Albumin 2.9 L Globulin 2.6 Albumin/Globulin Ratio 1.1 L HSV I IgG Ab 29.80 H HSV II IgG <0.90 ABG Interpretation ABG results: 03/05/25 03/09/25 03/12/25 13:17 23:55 15:20 ABG pH 7.45 7.46 H ABG pCO2 27 L 36 ABG pO2 122 H 88 D ABG HCO3 18 L 25 ABG O2 Saturation 100 H 99 H ABG Base Excess -5 L 1 VBG pH 7.39 VBG pCO2 36 VBG pO2 31 VBG Base Excess -3 03/12/25 15:53 ABG pH ABG pCO2 ABG pO2 ABG HCO3 ABG O2 Saturation ABG Base Excess VBG pH 7.49 VBG pCO2 34 L VBG pO2 94 H VBG Base Excess 2 Quality Measures Quality Measures none Advance care planning discussed with:: patient Assessment & Plan Assessment Current Active Medications: Generic Name Dose Route Start Last Admin Trade Name Freq PRN Reason Stop Dose Admin Acetaminophen 650 mg 03/05/25 15:28 03/11/25 01:34 Acetaminophen 325 Mg Tablet PO 04/04/25 15:27 650 mg Q6H PRN Administration Fever >101.5 or pain (1-3) Amiodarone HCl 200 mg 03/14/25 21:30 03/18/25 09:09 Amiodarone Hcl 200 Mg Tablet PO 04/13/25 21:29 200 mg BID CLAUDE Administration Atorvastatin Calcium 40 mg 03/17/25 21:00 03/17/25 20:15 Atorvastatin Calcium 20 Mg Tablet PO 04/16/25 20:59 40 mg HS CLAUDE Administration Ipratropium [place] 0.5 mg 03/12/25 15:00 03/18/25 06:54 Ipratropium Rt 0.5 Mg/ 2.5 Ml Nebu INH 04/11/25 14:59 0.5 mg Q8HRRT CLAUDE Administration Labetalol HCl 10 mg 03/13/25 22:39 03/14/25 20:56 Labetalol Inj 5 Mg/Ml Vial 20 Ml IVP 04/12/25 09:59 10 mg Q4HR PRN Administration Sbp > 170 or DBP > 120 Levalbuterol HCl 1.25 mg 03/12/25 14:00 03/18/25 06:55 Levalbuterol Rt 1.25 Mg/0.5 Ml Nebu INH 04/11/25 13:59 1.25 mg Q8HR CLAUDE Administration Metoprolol Succinate 25 mg 03/16/25 14:00 03/18/25 09:09 Metoprolol Succinate Xl 25 Mg Tabcr PO 04/15/25 13:59 25 mg QDAY CLAUDE Administration Ondansetron HCl 4 mg 03/05/25 13:06 Ondansetron Inj 2 Mg/Ml Inj 2 Ml IVP 04/04/25 13:05 Q4HR PRN NAUSEA OR VOMITING Pantoprazole Sodium 40 mg 03/12/25 12:45 03/18/25 09:11 Pantoprazole Inj 40 Mg Vial IVP 04/11/25 12:44 40 mg BID CLAUDE Administration Pharmacy Consult 1 each 03/14/25 05:23 Pharmacy Renal Dose Adjustment 1 Ea XX 04/13/25 05:22 PRN PRN CONSULT Rivaroxaban 20 mg 03/17/25 17:30 03/17/25 17:41 Rivaroxaban 10 Mg Tablet PO 04/16/25 17:29 20 mg WSUPPER CLAUDE Administration Sodium Chloride 3 ml 03/12/25 10:45 03/16/25 14:14 Sodium Chloride Rt Aleena 0.9% 3 Ml Nebu INH 04/11/25 10:44 3 ml PRN PRN Administration SOLN Thiamine HCl 100 mg 03/17/25 13:00 03/18/25 09:09 Thiamine 100 Mg Tablet PO 04/16/25 12:59 100 mg QDAY CLAUDE Administration Plan Devan Rios is an 79M pmhx significant for A-fib on Xarelto, hypertension, RA, PMR, and CKDIIIa who presented to [facility] ED on 03/05 for generalized weakness and inability to walk, admitted for upper and lower GIB, course complicated by ischemic CVAs, AMS and bowel perforation requring emergent surgery. #Bowel perforation, serosal tear, cecum #status post cecum resection 03/12/25 #s/p surgical site closure 03/17/25 #Pneumoperitoneum c/f bowel perforation #Suspected SBO vs ileus Overnight on 03/11, patient's abdomen acutely distended and tense c/f SBO vs ileus. Repeat KUB showed high grade mechanical SBO pattern. Patient is unable to communicate if he is passing gas, AOx2 to person and time only. CTAP showed pneumoperitoneum, suspicious for ischemic bowel including right colon and small bowel, significantly distended small bowel loops consistent with obstruction Plan: - Continue oral medication - General surgery Dr. Smith consulted, performed exploratory laparotomy, found serosal tear in cecum, that was repaired with resection of the cecum and the ascending colon and ilio ascending colostomy - Closure of incision 03/17 - Resume regular diet - Piperacillin/tazobactam (03/10-03/17) per ID recs #Upper and lower GI bleed 2/2 #Angiodysplasias of GI tract #Symptomatic anemia Patient was brought to ED due to generalized fatigue and difficulty waking on the morning of 03/05 with melena started 2-3 weeks ago. Admission H&H 12/01/.2 s/p 2 prbc on 03/05 and 2 more pRBC on 03/07 with stabilization of H&H. Initial EGD showed angiodysplastic bleeding in gastric body and gastric fundus, requiring cautery and clipping. Repeat EGD 03/07, which showed no additional bleeding Colonoscopy planned for 03/08, delayed to 03/09, which showed moderate diverticulosis in sigmoid and descending colon, and multiple bleeding colonic angiodysplastic lesions that were treated with argon plasma coagulation Ddx for multiple angiodysplasias possibly secondary to subtherapeutic anticoagulation on Xarelto 15 mg instead of Xarelto 20 mg causing multiple emboli with possible embolisms to GI tract Plan: ? GI consulted, recs appreciated ? Patient to follow-up with Dr. Bauer, GI, and referral to perform capsule endoscopy - Night of 03/17 recorded black and green BM with slowly downtrending Hgb 8.5->8.3->7.7->7.3, suspicion of possible new GIB - Dr. Bauer notified: continue Xarelto and will reassess - F/u afternoon H&H #VANNA on CKD likely prerenal In the ED, the patient had a BUN of 85, creatinine of 2.1, and GFR of 31. On chart review, patient has CKDIII with baseline Cr 1.4-1.7. VANNA likely 2/2 acute loss of blood due to GI bleed, resulting in decreased blood flow to the kidneys, which resolved 03/09 03/12 Cr increased to 1.8, likely 2/2 to suspected SBO. 03/18 Cr increased to 2.0 from 1.7, likely 2/2 dehydration has been NPO and water restriction Plan: ? Renally dose medications ? Avoid nephrotoxic medications ? Start LR 500cc at 75 cc/hr #Acute encephalopathy, likely multifactorial 2/2 #Aspiration pneumonia #Fever, improving Presented with fatigue that had sudden onset on 03/05 in the morning likely 2/2 symptomatic anemia. Rapid response x2 were called 03/08 and 03/10 for fever and acute AMS. Since, patient has had fluctuations of mental status return to baseline, then becoming altered. Patient had a fever on 03/08 initially, which has become more frequent over time. Tmax 102.4. Patient did have a sudden spike in WBC on second rapid response without leukocytosis, however this WBC quickly resolved back to baseline about 3 hours later. On 03/11 nursing recorded episode of vomiting, where patient likely aspirated as morning of 03/12, patient desaturated to 93% requiring 4L O2 oxymask. Acute encephalopathy likely multifactorial iso aspiration PNA and stroke. Fever ddx includes L arm cellulitis, meningitis, delayed nonhemolytic transfusion reaction, febrile nonhemolytic transfusion reaction, however improving on antibiotics. Dixon test neg, digoxin levels 0.7, folate and B12 wnl s/p B12 injection 03/09, T4 wnl, CRP and ESR wnl, cocci IgM and IgG neg, BCx and UCx NGTD Plan: - Piperacillin/tazobactam (03/10-03/17) - Scheduled Duonebs q8h - Neurology consulted, appreciate recommendations - Infectious disease consulted, appreciate recommendations, abx as above - Aspiration precautions elevate head of bed at 30 degrees - Patient passed swallow re-evaluation by speech therapy, recommends chopped diet #Ischemic CVA, embolic (frontal lobe, parietal lobe, basal ganglia, posterior left temporal lobe) #History of TIA #Transient aphasia Patient has hx of atrial fibrillation on Xarelto which was held on admission 03/05 due to GIB. Due to episodes of altered mental status starting 03/08, the patient had a code stroke called. CT head without contrast and CTA head and neck were negative for stroke. Neurology was consulted, and at the time CT head and CTA head and neck were negative for acute strokes. MRI was not recommended at that time due to concerns of an underlying metabolic encephalopathy. 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 Colon for management. Patient is currently on Xarelto and digoxin. Asked pharmacy about digoxin dosing and they confirmed 0.125 mg daily while patient's family states that the patient takes 0.125 mg Friday and Friday. Contacted Dr. Colon for confirmation, and he stated that the patient was okay taking 0.125 mg Friday. Patient's uncontrolled rate a-fib RVR is likely 2/2 presence of likely suspected SBO vs ileus CHADS-VASC score 4 (stroke risk 4.8% per year) HAS-BLED score 3 (bleed risk 5.8%, patient is at high risk for major bleeding) Plan: - Stopped patient's home digoxin - Consulted cardiology, Dr. Colon, recs appreciated - Amiodarone 200mg BID - Increased Metoprolol XL 25mg daily to 50 mg XL BID starting tomorrow, spot Metoprolol 25mg XL x1 as patient already got today morning dose - Discussed with general surgery, patient to resume Xarelto 20 mg HS #CHF (EF 55% 2024) Patient does not have a documented history of CHF, but patient takes furosemide 20 mg p.o. daily at home. Echocardiogram done on 04/30/2018 showed EF of 50% with moderate mitral regurgitation. Plan: ? Will hold patient's home furosemide given suspected SBO ? Strict ins and outs and daily weights ? Echocardiogram 03/11 showed negative bubble study, EF 55%, severely increased left atrial volume, aortic valve sclerosis without stenosis, mild mitral regurgitation, mild aortic regurgitation, mild tricuspid regurgitation, no thrombi. #Primary Hypertension Patient has a history of hypertension. Patient takes benazepril 40 mg daily and clonidine 0.2 mg 3 times daily at home. Plan: - Will hold patient's home antihypertensives of benazepril, clonidine, furosemide - Will monitor blood pressure closely - Metoprolol XL 50mg daily #Vitamin B12 deficiency Patient was noted to have B12 of 94 on 03/06. - B12 1,000 mcg injection, repeat B12 03/14 noted to be 1484. #Vitamin B1 deficiency Patient noted to have vitamin B1 of 6 as measured on 03/11. Might potentially be contributing to episodes of AMS in the patient. Patient does have a history of frequent alcohol consumption. - Thiamine supplement 100 mg daily DVT Prophylaxis: Heparin GI Prophylaxis: Protonix Bowel: N/A Diet: Cardiac Justin: N/A Lines: Peripheral IV Antibiotics: Zosyn (03/10-03/17) Code Status: FULL Reason for Hospitalization: GI bleed Other Barriers to Discharge: New VANNA Patient plan of care was discussed with the senior resident Dr. Winters (PGY-2) and attending physician Dr. Chelly Trujillo, Internal Medicine PGY-1 Attending Provider Attestation/Addendum I attest that I was physically present for the evaluation, physical examination, lab and imaging review of the patient with the residents. I discussed the case with the residents and agree with the findings and plans of care as documented above. Aurelia Spaulding MD
[2025-03-18] MEDS: RINGERS LACTATED 500 ML 500 ML 75 ML IV (12:28)
[2025-03-18 16:01] LABS: Hematocrit 21.8 % (41.0-53.0)
--- NOTE | 2025-03-18 16:02 | PD.IMPROG ---
Documentation for date of: 03/18/25 Subjective Subjective Interval history: on anticoagulation for afib anemia metoporlol increased to 50 BID Exam Vital Signs Temp Pulse Resp BP Pulse Ox O2 Del Method O2 Flow Rate 98.1 F 98 22 H 152/99 H 100 Room Air 95 03/18/25 13:00 03/18/25 15:27 03/18/25 15:27 03/18/25 13:00 03/18/25 15:27 03/18/25 13:00 03/18/25 06:55 Routine HEENT Exam Head: Present normocephalic and atraumatic Eye: Present EOMI and PERRL ENT: Present mucous membranes moist Routine Neck Exam Neck: Present supple and trachea midline Routine Respiratory Exam Respiratory: Present chest non-tender, lungs clear, normal breath sounds and no resp distress Routine Cardiovascular Exam Cardiovascular: Present RRR Routine Abdominal Exam Abdominal: Present soft and normoactive bowel sounds Routine Extremities Exam Extremities: Present full ROM Routine Skin Exam Skin: Present intact, dry and warm Objective Labs 03/18/25 05:20 03/18/25 05:20 Labs: Laboratory Results - last 24 hr 03/11/25 03/18/25 13:10 05:20 WBC 12.5 H RBC 2.38 L Hgb 7.3 L Hct 22.7 L MCV 95 MCH 30.7 MCHC 32.2 RDW Std Deviation 75.7 H Plt Count 282 D Neut % (Auto) 82 H Lymph % (Auto) 6 L [place] % (Auto) 7 Eos % (Auto) 1 Baso % (Auto) 0 Neut # (Auto) 10.2 H Lymph # (Auto) 0.7 L [place] # (Auto) 0.9 H Eos # (Auto) 0.1 Baso # (Auto) 0.1 Immature Gran # (Auto) 0.51 H Absolute Nucleated RBC 0.00 Immature Gran % 4 H Nucleated RBC % 0 APTT 37.3 H D Sodium 141 Potassium 4.1 Chloride 106 Carbon Dioxide 23.8 Anion Gap 11 BUN 18 Creatinine 2.0 H Estim Creat Clear Calc 32.3 L eGFR 33 L BUN/Creatinine Ratio 9 L Glucose 140 H Calculated Osmolality 285 Calcium 8.0 L Corrected Calcium 8.9 Phosphorus 3.2 Magnesium 2.2 Total Bilirubin 1.0 AST 28 ALT 28 Alkaline Phosphatase 83 Total Protein 5.5 L Albumin 2.9 L Globulin 2.6 Albumin/Globulin Ratio 1.1 L HSV I IgG Ab 29.80 H HSV II IgG <0.90 ABG Interpretation ABG results: 03/05/25 03/09/25 03/12/25 13:17 23:55 15:20 ABG pH 7.45 7.46 H ABG pCO2 27 L 36 ABG pO2 122 H 88 D ABG HCO3 18 L 25 ABG O2 Saturation 100 H 99 H ABG Base Excess -5 L 1 VBG pH 7.39 VBG pCO2 36 VBG pO2 31 VBG Base Excess -3 03/12/25 15:53 ABG pH ABG pCO2 ABG pO2 ABG HCO3 ABG O2 Saturation ABG Base Excess VBG pH 7.49 VBG pCO2 34 L VBG pO2 94 H VBG Base Excess 2 Assessment & Plan A&P Narrative metoprolol increased to 50 BID HR 98 afib on xarelto Time Spent With Patient Time: Total time spent is greater than 50% in coordination of care (as documented) at patient's floor/unit and/or counseling patient:
[2025-03-18 16:06] LABS: Hemoglobin 6.9 g/dL (13.5-16.0)
[2025-03-18] MEDS: RIVAROXABAN 10 MG TABLET 20 MG PO (18:26)
--- NOTE | 2025-03-18 20:11 | PD.IMPROG ---
Documentation for date of: 03/18/25 Subjective Subjective Interval history: Patient evaluated dropping hemoglobin hematocrit to 6.1 and 21.8 from 7.3 and 22.7 No signs of any active bleeding Case discussed with the internal medicine team Continue Xarelto No need at this point for any invasive GI workup such as upper endoscopy Recommend to transfuse 1 unit of PRBC Exam Vital Signs Temp Pulse Resp BP Pulse Ox O2 Del Method O2 Flow Rate 97.8 F 100 25 H 132/87 H 95 Room Air 95 03/18/25 20:00 03/18/25 20:00 03/18/25 20:00 03/18/25 20:00 03/18/25 20:00 03/18/25 20:00 03/18/25 06:55 Objective Labs 03/18/25 15:55 03/18/25 05:20 Labs: Laboratory Results - last 24 hr 03/11/25 03/12/25 03/18/25 13:10 17:13 05:20 WBC 12.5 H RBC 2.38 L Hgb 7.3 L Hct 22.7 L MCV 95 MCH 30.7 MCHC 32.2 RDW Std Deviation 75.7 H Plt Count 282 D Neut % (Auto) 82 H Lymph % (Auto) 6 L [place] % (Auto) 7 Eos % (Auto) 1 Baso % (Auto) 0 Neut # (Auto) 10.2 H Lymph # (Auto) 0.7 L [place] # (Auto) 0.9 H Eos # (Auto) 0.1 Baso # (Auto) 0.1 Immature Gran # (Auto) 0.51 H Absolute Nucleated RBC 0.00 Immature Gran % 4 H Nucleated RBC % 0 APTT 37.3 H D Sodium 141 Potassium 4.1 Chloride 106 Carbon Dioxide 23.8 Anion Gap 11 BUN 18 Creatinine 2.0 H Estim Creat Clear Calc 32.3 L eGFR 33 L BUN/Creatinine Ratio 9 L Glucose 140 H Calculated Osmolality 285 Calcium 8.0 L Corrected Calcium 8.9 Phosphorus 3.2 Magnesium 2.2 Total Bilirubin 1.0 AST 28 ALT 28 Alkaline Phosphatase 83 Total Protein 5.5 L Albumin 2.9 L Globulin 2.6 Albumin/Globulin Ratio 1.1 L HSV I IgG Ab 29.80 H HSV II IgG <0.90 Blood Type Antibody Screen Crossmatch See Detail Blood Bank Wristband ID 03/18/25 03/18/25 15:55 16:47 WBC RBC Hgb 6.9 L* Hct 21.8 L* MCV MCH MCHC RDW Std Deviation Plt Count Neut % (Auto) Lymph % (Auto) [place] % (Auto) Eos % (Auto) Baso % (Auto) Neut # (Auto) Lymph # (Auto) [place] # (Auto) Eos # (Auto) Baso # (Auto) Immature Gran # (Auto) Absolute Nucleated RBC Immature Gran % Nucleated RBC % APTT Sodium Potassium Chloride Carbon Dioxide Anion Gap BUN Creatinine Estim Creat Clear Calc eGFR BUN/Creatinine Ratio Glucose Calculated Osmolality Calcium Corrected Calcium Phosphorus Magnesium Total Bilirubin AST ALT Alkaline Phosphatase Total Protein Albumin Globulin Albumin/Globulin Ratio HSV I IgG Ab HSV II IgG Blood Type O Positive Antibody Screen NEGATIVE Crossmatch See Detail Blood Bank Wristband ID Yes Impressions Impression: Downtrending hemoglobin hematocrit but no signs of any active bleeding Continue Xarelto Transfuse 1 unit of packed cells Reevaluation a.m. ABG Interpretation ABG results: 03/05/25 03/09/25 03/12/25 13:17 23:55 15:20 ABG pH 7.45 7.46 H ABG pCO2 27 L 36 ABG pO2 122 H 88 D ABG HCO3 18 L 25 ABG O2 Saturation 100 H 99 H ABG Base Excess -5 L 1 VBG pH 7.39 VBG pCO2 36 VBG pO2 31 VBG Base Excess -3 03/12/25 15:53 ABG pH ABG pCO2 ABG pO2 ABG HCO3 ABG O2 Saturation ABG Base Excess VBG pH 7.49 VBG pCO2 34 L VBG pO2 94 H VBG Base Excess 2 Assessment & Plan A&P Narrative metoprolol increased to 50 BID HR 98 afib on xarelto Time Spent With Patient Time: Total time spent is greater than 50% in coordination of care (as documented) at patient's floor/unit and/or counseling patient:
[2025-03-18] MEDS: ATORVASTATIN CALCIUM 20 MG TABLET 40 MG PO (20:27)
--- NOTE | 2025-03-18 23:11 | ESPR_ITS ---
Documentation for date of: 03/18/25 Subjective Subjective Interval history: Patient was seen in Telemetry today with c/o visual hallucinations earlier in the day, no other symptoms reported. Had the Ex-Lap last week followed by closure. Patient is back on the Xarelto. Exam - Neurology Vital Signs Temp Pulse Resp BP Pulse Ox O2 Del Method O2 Flow Rate 98.9 F 104 H 21 H 133/85 H 97 Room Air 95 03/18/25 22:13 03/18/25 22:13 03/18/25 22:13 03/18/25 22:13 03/18/25 22:13 03/18/25 20:00 03/18/25 06:55 Narrative Exam GENERAL APPEARANCE: Well hydrated, well-nourished in no acute distress. HEENT: Normocephalic, atraumatic, extraocular movements intact. Pupils: Equal reacting to light NECK: Supple, no JVD or bruits. CARDIOVASULAR: Heart: S1, S2 heard, regular without S3-S4 or murmur no rubs or gallops. LUNGS/CHEST: Clear to auscultation bilaterally. No rails, rhonchi, or wheezing. Normal inspection. ABDOMEN: nontender, with normal bowel sounds, S/P laparotomy EXTREMITIES: Normal inspection and palpation. No edema, clubbing or cyanosis. SKIN: Warm and dry without rashes. Normal inspection. MUSCULOSKELETAL: No cervical, thoracic, lumbar or midline bony tenderness. Normal inspection. NEURO: Alert, awake and oriented x3. Cranial nerves: II through XII grossly intact. Speech and language: Normal with no dysarthria or dysphasia. Motor system: Tone and bulk: Normal: Strength: 5 out of 5 in all 4 extremities; No pronator drift noted. Deep tendon reflexes: 2+ bilaterally symmetrical. Plantar reflex: Downgoing bilaterally. Sensory system: Intact to pinprick sensation bilaterally. Coordination: Intact to [id number] and dwxt-[id number] test bilaterally. No ataxia, no dysmetria, or dysdiadochokinesia noted. No intention tremors noted. Gait: not tested. No signs of meningeal irritation noted. PSYCHIATRIC: Normal mood and affect. Objective Labs 03/21/25 03:24 03/21/25 03:24 Labs: Laboratory Results - last 24 hr 03/11/25 03/12/25 03/18/25 13:10 17:13 05:20 WBC 12.5 H RBC 2.38 L Hgb 7.3 L Hct 22.7 L MCV 95 MCH 30.7 MCHC 32.2 RDW Std Deviation 75.7 H Plt Count 282 D Neut % (Auto) 82 H Lymph % (Auto) 6 L [place] % (Auto) 7 Eos % (Auto) 1 Baso % (Auto) 0 Neut # (Auto) 10.2 H Lymph # (Auto) 0.7 L [place] # (Auto) 0.9 H Eos # (Auto) 0.1 Baso # (Auto) 0.1 Immature Gran # (Auto) 0.51 H Absolute Nucleated RBC 0.00 Immature Gran % 4 H Nucleated RBC % 0 APTT 37.3 H D Sodium 141 Potassium 4.1 Chloride 106 Carbon Dioxide 23.8 Anion Gap 11 BUN 18 Creatinine 2.0 H Estim Creat Clear Calc 32.3 L eGFR 33 L BUN/Creatinine Ratio 9 L Glucose 140 H Calculated Osmolality 285 Calcium 8.0 L Corrected Calcium 8.9 Phosphorus 3.2 Magnesium 2.2 Total Bilirubin 1.0 AST 28 ALT 28 Alkaline Phosphatase 83 Total Protein 5.5 L Albumin 2.9 L Globulin 2.6 Albumin/Globulin Ratio 1.1 L HSV I IgG Ab 29.80 H HSV II IgG <0.90 Blood Type Antibody Screen Crossmatch See Detail Blood Bank Wristband ID 03/18/25 03/18/25 15:55 16:47 WBC RBC Hgb 6.9 L* Hct 21.8 L* MCV MCH MCHC RDW Std Deviation Plt Count Neut % (Auto) Lymph % (Auto) [place] % (Auto) Eos % (Auto) Baso % (Auto) Neut # (Auto) Lymph # (Auto) [place] # (Auto) Eos # (Auto) Baso # (Auto) Immature Gran # (Auto) Absolute Nucleated RBC Immature Gran % Nucleated RBC % APTT Sodium Potassium Chloride Carbon Dioxide Anion Gap BUN Creatinine Estim Creat Clear Calc eGFR BUN/Creatinine Ratio Glucose Calculated Osmolality Calcium Corrected Calcium Phosphorus Magnesium Total Bilirubin AST ALT Alkaline Phosphatase Total Protein Albumin Globulin Albumin/Globulin Ratio HSV I IgG Ab HSV II IgG Blood Type O Positive Antibody Screen NEGATIVE Crossmatch See Detail Blood Bank Wristband ID Yes ABG Interpretation ABG results: 03/05/25 03/09/25 03/12/25 13:17 23:55 15:20 ABG pH 7.45 7.46 H ABG pCO2 27 L 36 ABG pO2 122 H 88 D ABG HCO3 18 L 25 ABG O2 Saturation 100 H 99 H ABG Base Excess -5 L 1 VBG pH 7.39 VBG pCO2 36 VBG pO2 31 VBG Base Excess -3 03/12/25 15:53 ABG pH ABG pCO2 ABG pO2 ABG HCO3 ABG O2 Saturation ABG Base Excess VBG pH 7.49 VBG pCO2 34 L VBG pO2 94 H VBG Base Excess 2 Assessment & Plan Assessment and plan (1) Atrial fibrillation: Status: Chronic (2) Altered mental status: Status: Acute (3) Severe anemia: Status: Acute (4) GI (gastrointestinal bleed): Status: Acute (5) Acute kidney injury: Status: Acute Additional Assessment & Plan Additional Plan: 1) Cerebrovascular accident: Status: Acute Assessment and plan: Secondary to cardioembolic phenomena from atrial fibrillation Resumed his Xarelto, will watch out for any bleeding Continue with physical therapy and Occupational Therapy (2) Atrial fibrillation: Status: Chronic Assessment and plan: Continue with rate control (3) Hypertension: Status: Chronic Assessment and plan: Continue with current blood pressure medications (4) Severe anemia: Status: Acute Assessment and plan: continue to monitor hemoglobin and hematocrit closely and consider blood transfusion as needed
[2025-03-19] VITALS (18 sets, daily range): BP systolic 127–159; BP diastolic 66–100; PULSE 76–115; RESP 16–24; TEMP 36.6–38.1; O2SAT 94–100; BMI 26.4
[2025-03-19 02:21] LABS: Hematocrit 23.4 % (41.0-53.0)
[2025-03-19 02:26] LABS: Hemoglobin 7.6 g/dL (13.5-16.0)
[2025-03-19] MEDS: LEVALBUTEROL RT 1.25 MG/0.5 ML NEBU INH ×3 (06:27→23:18)
[2025-03-19] MEDS: IPRATROPIUM RT 0.5 MG/ 2.5 ML NEBU INH ×3 (06:27→23:18)
[2025-03-19] MEDS: AMIODARONE HCL 200 MG TABLET PO ×2 (09:37→20:37)
[2025-03-19] MEDS: THIAMINE 100 MG TABLET PO (09:37)
[2025-03-19] MEDS: METOPROLOL SUCCINATE XL 25 MG TABCR 50 MG PO (09:38)
[2025-03-19 09:49] LABS: Basophils # (Auto) 0.1 Thou/mm3 (0.0-0.2); Basophils % (Auto) 0 % (0-2.5); Eosinophils # (Auto) 0.2 Thou/mm3 (0.0-0.5); Eosinophils % (Auto) 1 % (0-10); Hematocrit 22.4 % (41.0-53.0); Immature Granulocytes Auto 0.25 Thou/mm3 (0.00-0.00); Lymphocytes # (Auto) 0.6 Thou/mm3 (1.0-4.8); Lymphocytes % (Auto) 5 % (10-50); Mean Corpuscular HGB Conc 31.7 g/dl (31.0-37.0); Mean Corpuscular Hemoglobin 30.0 pg (25.0-35.0); Mean Corpuscular Volume 95 fL (80-100); Monocytes # (Auto) 0.8 Thou/mm3 (0.0-0.8); Monocytes % (Auto) 6 % (0-12); Neutrophils # (Auto) 11.4 Thou/mm3 (1.8-7.7); Neutrophils % (Auto) 86 % (37-80); Nucleated Red Blood Cell # 0.00 Thou/mm3 (0.00-0.00); Nucleated Red Blood Cell % 0 /100 WBC (0); Platelet Count 226 Thou/mm3 (140-440); RDW Standard Deviation 71.0 fL (35.1-43.9); Red Blood Count 2.37 Miln/mm3 (4.50-5.90); White Blood Count 13.2 Thou/mm3 (3.8-10.6)
[2025-03-19 10:03] LABS: Alanine Aminotransferase 28 U/L (10-49); Albumin, Serum 2.8 gm/dL (3.4-4.8); Albumin/Globulin Ratio 1.2 (1.2-2.2); Alkaline Phosphatase 71 U/L (46-116); Anion Gap 9 (7-16); Aspartate Amino Transferase 32 U/L (0-34); BUN/Creatinine Ratio 8 Ratio (12-20); Bilirubin,Total 0.6 mg/dL (0.3-1.2); Blood Urea Nitrogen 15 mg/dL (9-23); Calcium 7.8 mg/dL (8.3-10.6); Calcium (Corrected) 8.8 mg/dL (8.5-10.1); Carbon Dioxide 22.9 mMol/L (20.0-31.0); Chloride 109 mMol/L (98-107); Creatinine (Component) 1.8 mg/dL (0.6-1.3); Estimated Creatinine Clearance 35.9 mL/min (>60); Globulin 2.4 gm/dL (2.3-3.5); Glucose 157 mg/dL (74-106); Magnesium 1.9 mg/dL (1.6-2.6); Osmolality,Calculated 285 (275-295); Potassium 4.1 mMol/L (3.4-5.1); Sodium 141 mMol/L (136-145); Total Protein 5.2 gm/dL (5.7-8.2); eGFR 38 See Note
--- NOTE | 2025-03-19 10:35 | PD.SURPROG ---
Documentation for date of: 03/19/25 Subjective Subjective Brief History: Patient was found to have GI bleeding that required coagulation of the AVM in the stomach and the colon. He denies any history of pain. He has not had any such pain in the past and he has stopped his bleeding. However his abdomen was distended and residents asked me to see if we can decompress the patient was seen by me earlier for abdominal distention and the resident was asking whether we could introduce an NG tube. I said yes at that time abdominal x-ray showed no abnormality other than dilated cecum. After decompression CT scan was obtained and showed free air around the cecum and under the diaphragm. Therefore second consultation was obtained for further management. Patient is possibly history revealed that he had extensive disease with a history of hypertension anemia GI bleed atrial fibrillation congestive heart failure CVA. Patient also has been admitted with altered mental status. When he came in he was admitted for weakness 1 week ago subsequently he was found to have marked anemia for which she was transfused 4 units of blood. Evaluation with the lead customer service representative showed that patient had some angiodysplasia in the ascending colon and in the stomach which was treated with coagulation. Patient seems to have had done reasonably well but recently started having pain and tenderness and abdominal distention. Because of the distention surgical consultation was obtained I and I saw him. We decided to put an NG tube. Meanwhile he is was found to have tenderness in the right lower quadrant and a CT scan showed possible free air. Narrative: The patient is feeling better and is tolerating diet. Unfortunately he is passing maroon-colored stools and his hemoglobin is dropped Exam Vital Signs Temp Pulse Resp BP Pulse Ox O2 Del Method O2 Flow Rate 98.2 F 115 H 19 154/96 H 94 L Room Air 95 03/19/25 08:00 03/19/25 09:38 03/19/25 08:00 03/19/25 09:38 03/19/25 08:00 03/19/25 08:00 03/18/25 06:55 His vital signs are stable other than tachycardia which was persistent even before surgery Routine Abdominal Exam Comments: Abdominal examination shows slight distention and the suture line is healing well Results Results: Laboratory Laboratory Narrative: Hemoglobin is dropped around 7 g Assessment & Plan Assessment Additional comments: Impression: Postoperative bleeding which may be related to presence of AVM Plan Plan: We shall transfuse him and monitor him closely and discharge him only after he is stable with a hemoglobin around 10 g. PROCEDURES: Procedures Secondary closure of the abdominal incision
--- NOTE | 2025-03-19 10:49 | PD.RESPRO ---
Documentation for date of: 03/19/25 Subjective Subjective Interval history: Overnight events: No acute events overnight. Patient was seen and examined at bedside. AM vitals and labs reviewed. Patient noted to have elevated temperature of 100.6 ?F overnight. Morning H&H 7.1/22.4, which is a decrease from 7.6/23.4 posttransfusion yesterday. Patient did have large, dark, tarry stool with red discoloration this morning. Creatinine noted to be 1.8, decreased from yesterday. HSV-1 IgG did result as positive, but noted from ID that this is not likely significant as many patients have HSV antibodies incidentally. Discussed situation with Dr. Bauer, GI, who recommended putting the patient n.p.o. at midnight, nuclear medicine GI scan, and holding patient's Xarelto. GI will perform endoscopy planned for tomorrow 03/20. Will transfuse 1 unit of PRBC with posttransfusion H&H due to concern of active bleeding with downtrending H&H. Ordered LR 75 cc/hr for additional management of VANNA. Review of systems otherwise negative except for what is mentioned above. Exam Vital Signs Temp Pulse Resp BP Pulse Ox O2 Del Method O2 Flow Rate 98.2 F 115 H 19 154/96 H 94 L Room Air 95 03/19/25 08:00 03/19/25 09:38 03/19/25 08:00 03/19/25 09:38 03/19/25 08:00 03/19/25 08:00 03/18/25 06:55 Narrative Exam Physical Exam: General: Alert, no acute distress. Skin: Warm, intact, no obvious rash. Head: Normocephalic, atraumatic. Eye: Normal conjunctiva, PERRL. Cardiovascular: Regular rate and rhythm, soft systolic murmur best heard over tricuspid/mitral region, +S1/S2. Respiratory: Lungs are clear to auscultation, respirations unlabored, no crackles, no wheezing. Gastrointestinal: Soft, nontender, non-distended. No guarding or rebound tenderness. Extremities: No edema, no cyanosis, no clubbing. Left arm slightly swollen, non-tender, and dark discoloring present. Right arm discoloring noted but not as extensive as left. Neuro: No focal deficits observed. Conversant, moving all extremities. No overt cerebellar signs/incoordination. Psychiatric: Cooperative, appropriate affect. Objective Labs 03/19/25 09:27 03/19/25 09:27 Labs: Laboratory Results - last 24 hr 03/12/25 03/18/25 03/18/25 17:13 15:55 16:47 Hgb 6.9 L* Hct 21.8 L* Sodium Potassium Chloride Carbon Dioxide Anion Gap BUN Creatinine Estim Creat Clear Calc eGFR BUN/Creatinine Ratio Glucose Calculated Osmolality Calcium Corrected Calcium Magnesium Total Bilirubin AST ALT Alkaline Phosphatase Total Protein Albumin Globulin Albumin/Globulin Ratio Blood Type O Positive Antibody Screen NEGATIVE Crossmatch See Detail See Detail Blood Bank Wristband ID Yes 03/19/25 03/19/25 02:10 09:27 Hgb 7.6 L Hct 23.4 L Sodium 141 Potassium 4.1 Chloride 109 H Carbon Dioxide 22.9 Anion Gap 9 BUN 15 Creatinine 1.8 H Estim Creat Clear Calc 35.9 L eGFR 38 L BUN/Creatinine Ratio 8 L Glucose 157 H Calculated Osmolality 285 Calcium 7.8 L Corrected Calcium 8.8 Magnesium 1.9 Total Bilirubin 0.6 AST 32 ALT 28 Alkaline Phosphatase 71 Total Protein 5.2 L Albumin 2.8 L Globulin 2.4 Albumin/Globulin Ratio 1.2 Blood Type Antibody Screen Crossmatch Blood Bank Wristband ID ABG Interpretation ABG results: 03/05/25 03/09/25 03/12/25 13:17 23:55 15:20 ABG pH 7.45 7.46 H ABG pCO2 27 L 36 ABG pO2 122 H 88 D ABG HCO3 18 L 25 ABG O2 Saturation 100 H 99 H ABG Base Excess -5 L 1 VBG pH 7.39 VBG pCO2 36 VBG pO2 31 VBG Base Excess -3 03/12/25 15:53 ABG pH ABG pCO2 ABG pO2 ABG HCO3 ABG O2 Saturation ABG Base Excess VBG pH 7.49 VBG pCO2 34 L VBG pO2 94 H VBG Base Excess 2 Quality Measures Quality Measures none Advance care planning discussed with:: patient and spouse Assessment & Plan Assessment Current Active Medications: Generic Name Dose Route Start Last Admin Trade Name Freq PRN Reason Stop Dose Admin Acetaminophen 650 mg 03/05/25 15:28 03/11/25 01:34 Acetaminophen 325 Mg Tablet PO 04/04/25 15:27 650 mg Q6H PRN Administration Fever >101.5 or pain (1-3) Amiodarone HCl 200 mg 03/14/25 21:30 03/19/25 09:37 Amiodarone Hcl 200 Mg Tablet PO 04/13/25 21:29 200 mg BID CLAUDE Administration Atorvastatin Calcium 40 mg 03/17/25 21:00 03/18/25 20:27 Atorvastatin Calcium 20 Mg Tablet PO 04/16/25 20:59 40 mg HS CLAUDE Administration Ipratropium [place] 0.5 mg 03/12/25 15:00 03/19/25 06:27 Ipratropium Rt 0.5 Mg/ 2.5 Ml Nebu INH 04/11/25 14:59 0.5 mg Q8HRRT CLAUDE Administration Labetalol HCl 10 mg 03/13/25 22:39 03/14/25 20:56 Labetalol Inj 5 Mg/Ml Vial 20 Ml IVP 04/12/25 09:59 10 mg Q4HR PRN Administration Sbp > 170 or DBP > 120 Levalbuterol HCl 1.25 mg 03/12/25 14:00 03/19/25 06:27 Levalbuterol Rt 1.25 Mg/0.5 Ml Nebu INH 04/11/25 13:59 1.25 mg Q8HR CLAUDE Administration Metoprolol Succinate 50 mg 03/19/25 09:00 03/19/25 09:38 Metoprolol Succinate Xl 25 Mg Tabcr PO 04/18/25 08:59 50 mg QDAY CLAUDE Administration Ondansetron HCl 4 mg 03/05/25 13:06 Ondansetron Inj 2 Mg/Ml Inj 2 Ml IVP 04/04/25 13:05 Q4HR PRN NAUSEA OR VOMITING Pantoprazole Sodium 40 mg 03/12/25 12:45 03/19/25 09:37 Pantoprazole Inj 40 Mg Vial IVP 04/11/25 12:44 40 mg BID CLAUDE Administration Pharmacy Consult 1 each 03/14/25 05:23 Pharmacy Renal Dose Adjustment 1 Ea XX 04/13/25 05:22 PRN PRN CONSULT Rivaroxaban 20 mg 03/17/25 17:30 03/18/25 18:26 Rivaroxaban 10 Mg Tablet PO 04/16/25 17:29 20 mg WSUPPER CLAUDE Administration Sodium Chloride 3 ml 03/12/25 10:45 03/16/25 14:14 Sodium Chloride Rt Aleena 0.9% 3 Ml Nebu INH 04/11/25 10:44 3 ml PRN PRN Administration SOLN Thiamine HCl 100 mg 03/17/25 13:00 03/19/25 09:37 Thiamine 100 Mg Tablet PO 04/16/25 12:59 100 mg QDAY CLAUDE Administration Plan Devan Rios is an 79M pmhx significant for A-fib on Xarelto, hypertension, RA, PMR, and CKDIIIa who presented to [facility] ED on 03/05 for generalized weakness and inability to walk, admitted for upper and lower GIB, course complicated by ischemic CVAs, AMS and bowel perforation requring emergent surgery. #Upper and lower GI bleed / #Angiodysplasias of GI tract #Symptomatic anemia Patient was brought to ED due to generalized fatigue and difficulty waking on the morning of 03/05 with melena started 2-3 weeks ago. Admission H&H 12/01/.2 s/p 2 prbc on 03/05 and 2 more pRBC on 03/07 with stabilization of H&H. Initial EGD showed angiodysplastic bleeding in gastric body and gastric fundus, requiring cautery and clipping. Repeat EGD 03/07, which showed no additional bleeding Colonoscopy planned for 03/08, delayed to 03/09, which showed moderate diverticulosis in sigmoid and descending colon, and multiple bleeding colonic angiodysplastic lesions that were treated with argon plasma coagulation Ddx for multiple angiodysplasias possibly secondary to subtherapeutic anticoagulation on Xarelto 15 mg instead of Xarelto 20 mg causing multiple emboli with possible embolisms to GI tract Plan: - GI consulted, recs appreciated - Patient to follow-up with Dr. Bauer, GI, and referral to perform capsule endoscopy - Due to concern for new GI bleed, patient has been transfused PRBC 03/18 at 03/19 - Pending repeat H&H 03/19 posttransfusion - GI plans to perform upper endoscopy 03/20 - Patient n.p.o. at midnight - Hold Xarelto given active GI bleed #Bowel perforation, serosal tear, cecum #status post cecum resection 03/12/25 #s/p surgical site closure 03/17/25 #Pneumoperitoneum c/f bowel perforation #Suspected SBO vs ileus Overnight on 03/11, patient's abdomen acutely distended and tense c/f SBO vs ileus. Repeat KUB showed high grade mechanical SBO pattern. Patient is unable to communicate if he is passing gas, AOx2 to person and time only. CTAP showed pneumoperitoneum, suspicious for ischemic bowel including right colon and small bowel, significantly distended small bowel loops consistent with obstruction Plan: - Continue oral medication - General surgery Dr. Smith consulted, performed exploratory laparotomy, found serosal tear in cecum, that was repaired with resection of the cecum and the ascending colon and ilio ascending colostomy - Closure of incision 03/17 - Resume regular diet - Piperacillin/tazobactam (03/10-03/17) per ID recs #VANNA on CKD likely prerenal In the ED, the patient had a BUN of 85, creatinine of 2.1, and GFR of 31. On chart review, patient has CKDIII with baseline Cr 1.4-1.7. VANNA likely 2/2 acute loss of blood due to GI bleed, resulting in decreased blood flow to the kidneys, which resolved 03/09 03/12 Cr increased to 1.8, likely 2/2 to suspected SBO. 03/18 Cr increased to 2.0 from 1.7, likely 2/2 dehydration has been NPO and water restriction Plan: ? Renally dose medications ? Avoid nephrotoxic medications ? LR maintenance fluid 75 cc/hr #Acute encephalopathy, likely multifactorial 2/2 #Aspiration pneumonia #Fever, improving Presented with fatigue that had sudden onset on 03/05 in the morning likely 2/2 symptomatic anemia. Rapid response x2 were called 03/08 and 03/10 for fever and acute AMS. Since, patient has had fluctuations of mental status return to baseline, then becoming altered. Patient had a fever on 03/08 initially, which has become more frequent over time. Tmax 102.4. Patient did have a sudden spike in WBC on second rapid response without leukocytosis, however this WBC quickly resolved back to baseline about 3 hours later. On 03/11 nursing recorded episode of vomiting, where patient likely aspirated as morning of 03/12, patient desaturated to 93% requiring 4L O2 oxymask. Acute encephalopathy likely multifactorial iso aspiration PNA and stroke. Fever ddx includes L arm cellulitis, meningitis, delayed nonhemolytic transfusion reaction, febrile nonhemolytic transfusion reaction, however improving on antibiotics. Dixon test neg, digoxin levels 0.7, folate and B12 wnl s/p B12 injection 03/09, T4 wnl, CRP and ESR wnl, cocci IgM and IgG neg, BCx and UCx NGTD Plan: - Piperacillin/tazobactam (03/10-03/17) - Scheduled Duonebs q8h - Neurology consulted, appreciate recommendations - Infectious disease consulted, appreciate recommendations, abx as above - Aspiration precautions elevate head of bed at 30 degrees - Patient passed swallow re-evaluation by speech therapy, recommends chopped diet #Ischemic CVA, embolic (frontal lobe, parietal lobe, basal ganglia, posterior left temporal lobe) #History of TIA #Transient aphasia Patient has hx of atrial fibrillation on Xarelto which was held on admission 03/05 due to GIB. Due to episodes of altered mental status starting 03/08, the patient had a code stroke called. CT head without contrast and CTA head and neck were negative for stroke. Neurology was consulted, and at the time CT head and CTA head and neck were negative for acute strokes. MRI was not recommended at that time due to concerns of an underlying metabolic encephalopathy. Received Xarelto 15 mg 03/10 and 03/11 03/11 MRI showed multiple embolic type acute infarcts in frontal, parietal lobes, basal ganglia and posterior left temporal lobe Plan: - Xarelto held given GI bleed - Lipitor 40 mg nightly resumed - Neurology consulted, recs appreciated #A-fib with RVR, rate not controlled, on Xarelto Patient has a history of atrial fibrillation and sees bellstaff Dr. Colon for management. Patient is currently on Xarelto and digoxin. Asked pharmacy about digoxin dosing and they confirmed 0.125 mg daily while patient's family states that the patient takes 0.125 mg Friday and Friday. Contacted Dr. Colon for confirmation, and he stated that the patient was okay taking 0.125 mg Friday. Patient's uncontrolled rate a-fib RVR is likely 2/2 presence of likely suspected SBO vs ileus CHADS-VASC score 4 (stroke risk 4.8% per year) HAS-BLED score 3 (bleed risk 5.8%, patient is at high risk for major bleeding) Plan: - Stopped patient's home digoxin - Consulted cardiology, Dr. Colon, recs appreciated - Amiodarone 200mg BID - Metoprolol XL 50 mg daily - Xarelto held given GI bleed #CHF (EF 55% 2024) Patient does not have a documented history of CHF, but patient takes furosemide 20 mg p.o. daily at home. Echocardiogram done on 04/30/2018 showed EF of 50% with moderate mitral regurgitation. Plan: ? Will hold patient's home furosemide given suspected SBO ? Strict ins and outs and daily weights ? Echocardiogram 03/11 showed negative bubble study, EF 55%, severely increased left atrial volume, aortic valve sclerosis without stenosis, mild mitral regurgitation, mild aortic regurgitation, mild tricuspid regurgitation, no thrombi. #Primary Hypertension Patient has a history of hypertension. Patient takes benazepril 40 mg daily and clonidine 0.2 mg 3 times daily at home. Plan: - Will hold patient's home antihypertensives of benazepril, clonidine, furosemide - Will monitor blood pressure closely - Metoprolol XL 50mg daily #Vitamin B12 deficiency Patient was noted to have B12 of 94 on 03/06. - B12 1,000 mcg injection, repeat B12 03/14 noted to be 1484. #Vitamin B1 deficiency Patient noted to have vitamin B1 of 6 as measured on 03/11. Might potentially be contributing to episodes of AMS in the patient. Patient does have a history of frequent alcohol consumption. - Thiamine supplement 100 mg daily DVT Prophylaxis: N/A GI Prophylaxis: Protonix Bowel: N/A Diet: Cardiac Justin: N/A Lines: Peripheral IV Antibiotics: N/A Code Status: FULL Reason for Hospitalization: GI bleed Other Barriers to Discharge: New VANNA Patient plan of care was discussed with attending physician Dr. Chelly Levine DO Internal Medicine PGY-1 Attending Provider Attestation/Addendum I attest that I was physically present for the evaluation, physical examination, lab and imaging review of the patient with the residents. I discussed the case with the residents and agree with the findings and plans of care as documented above. Aurelia Spaulding MD
[2025-03-19 11:04] LABS: Hemoglobin 7.1 g/dL (13.5-16.0)
--- NOTE | 2025-03-19 13:42 | XR_ITS ---
Examination: Nuclear medicine gastrointestinal bleeding study Date and time: March 21, 2025, 0914 hours INDICATIONS: Low hemoglobin requiring transfusion this week TECHNIQUE AND FINDINGS: Intravenous administration 22.8 mCi technetium pertechnetate ultra tag labeled red blood cells Abdomen imaging 60 frames per second 60 frames Normal cardiac liver spleen and vascular uptake Focal isotope accumulation in the region of the stomach IMPRESSION: Focal isotope accumulation in the region of the stomach, clinical correlation advised, consider endoscopy follow-up
--- NOTE | 2025-03-19 15:27 | PC.SS ---
1527-Per afternoon rounding note; Hemoglobin keeps on dropping and blood transfusions are continued. Possible transfer. No d/c date at this time. Will need to see why the pts hemoglobin keeps on dropping.
--- NOTE | 2025-03-19 15:30 | PD.IMPROG ---
Documentation for date of: 03/19/25 Subjective Subjective Interval history: Patient evaluated hemoglobin hematocrit at 7.1 and 22.4 patient had large hematochezia stool today Case discussed with internal medicine team Anticoagulation discontinued n.p.o. midnight tonight Upper endoscopy tomorrow morning Previous endoscopy has shown AVMs requiring endoscopic intervention with bipolar gold heater probe and placement of an Endo Clip Exam Vital Signs Temp Pulse Resp BP Pulse Ox O2 Del Method O2 Flow Rate 99.9 F 98 22 H 141/86 H 95 Room Air 95 03/19/25 15:13 03/19/25 15:13 03/19/25 15:13 03/19/25 15:13 03/19/25 14:34 03/19/25 12:00 03/18/25 06:55 Objective Labs 03/19/25 09:27 03/19/25 09:27 Labs: Laboratory Results - last 24 hr 03/12/25 03/18/25 03/18/25 17:13 15:55 16:47 WBC RBC Hgb 6.9 L* Hct 21.8 L* MCV MCH MCHC RDW Std Deviation Plt Count Neut % (Auto) Lymph % (Auto) [place] % (Auto) Eos % (Auto) Baso % (Auto) Neut # (Auto) Lymph # (Auto) [place] # (Auto) Eos # (Auto) Baso # (Auto) Immature Gran # (Auto) Absolute Nucleated RBC Immature Gran % Nucleated RBC % Sodium Potassium Chloride Carbon Dioxide Anion Gap BUN Creatinine Estim Creat Clear Calc eGFR BUN/Creatinine Ratio Glucose Calculated Osmolality Calcium Corrected Calcium Magnesium Total Bilirubin AST ALT Alkaline Phosphatase Total Protein Albumin Globulin Albumin/Globulin Ratio Blood Type O Positive Antibody Screen NEGATIVE Crossmatch See Detail See Detail Blood Bank Wristband ID Yes 03/19/25 03/19/25 02:10 09:27 WBC 13.2 H RBC 2.37 L Hgb 7.6 L 7.1 L Hct 23.4 L 22.4 L MCV 95 MCH 30.0 MCHC 31.7 RDW Std Deviation 71.0 H Plt Count 226 D Neut % (Auto) 86 H Lymph % (Auto) 5 L [place] % (Auto) 6 Eos % (Auto) 1 Baso % (Auto) 0 Neut # (Auto) 11.4 H Lymph # (Auto) 0.6 L [place] # (Auto) 0.8 Eos # (Auto) 0.2 Baso # (Auto) 0.1 Immature Gran # (Auto) 0.25 H Absolute Nucleated RBC 0.00 Immature Gran % 2 H Nucleated RBC % 0 Sodium 141 Potassium 4.1 Chloride 109 H Carbon Dioxide 22.9 Anion Gap 9 BUN 15 Creatinine 1.8 H Estim Creat Clear Calc 35.9 L eGFR 38 L BUN/Creatinine Ratio 8 L Glucose 157 H Calculated Osmolality 285 Calcium 7.8 L Corrected Calcium 8.8 Magnesium 1.9 Total Bilirubin 0.6 AST 32 ALT 28 Alkaline Phosphatase 71 Total Protein 5.2 L Albumin 2.8 L Globulin 2.4 Albumin/Globulin Ratio 1.2 Blood Type Antibody Screen Crossmatch Blood Bank Wristband ID Impressions Impression: Hematochezia stop anticoagulation N.p.o. midnight tonight Repeat endoscopy tomorrow ABG Interpretation ABG results: 03/05/25 03/09/25 03/12/25 13:17 23:55 15:20 ABG pH 7.45 7.46 H ABG pCO2 27 L 36 ABG pO2 122 H 88 D ABG HCO3 18 L 25 ABG O2 Saturation 100 H 99 H ABG Base Excess -5 L 1 VBG pH 7.39 VBG pCO2 36 VBG pO2 31 VBG Base Excess -3 03/12/25 15:53 ABG pH ABG pCO2 ABG pO2 ABG HCO3 ABG O2 Saturation ABG Base Excess VBG pH 7.49 VBG pCO2 34 L VBG pO2 94 H VBG Base Excess 2 Assessment & Plan A&P Narrative metoprolol increased to 50 BID HR 98 afib on xarelto Time Spent With Patient Time: Total time spent is greater than 50% in coordination of care (as documented) at patient's floor/unit and/or counseling patient:
[2025-03-19] MEDS: Magnesium Sulfate 4 GM Ivpb 4 GM/50 ML BAG IV (18:33)
[2025-03-19 18:38] LABS: Hematocrit 26.6 % (41.0-53.0)
[2025-03-19 18:39] LABS: Hemoglobin 8.6 g/dL (13.5-16.0)
[2025-03-19] MEDS: RINGERS LACTATED 1000 ML 1,000 ML 75 ML IV (19:28)
[2025-03-19] MEDS: ATORVASTATIN CALCIUM 20 MG TABLET 40 MG PO (20:37)
[2025-03-20] VITALS (27 sets, daily range): BP systolic 120–158; BP diastolic 72–97; PULSE 80–105; RESP 14–28; TEMP 36.4–37.9; O2SAT 93–100; BMI 26.5
[2025-03-20] MEDS: IPRATROPIUM RT 0.5 MG/ 2.5 ML NEBU INH ×3 (06:22→22:33)
[2025-03-20] MEDS: LEVALBUTEROL RT 1.25 MG/0.5 ML NEBU INH ×3 (06:22→22:33)
[2025-03-20 10:03] LABS: Basophils # (Auto) 0.0 Thou/mm3 (0.0-0.2); Basophils % (Auto) 0 % (0-2.5); Eosinophils # (Auto) 0.2 Thou/mm3 (0.0-0.5); Eosinophils % (Auto) 2 % (0-10); Hematocrit 22.2 % (41.0-53.0); Immature Granulocytes Auto 0.18 Thou/mm3 (0.00-0.00); Lymphocytes # (Auto) 0.7 Thou/mm3 (1.0-4.8); Lymphocytes % (Auto) 5 % (10-50); Mean Corpuscular HGB Conc 32.0 g/dl (31.0-37.0); Mean Corpuscular Hemoglobin 30.5 pg (25.0-35.0); Mean Corpuscular Volume 95 fL (80-100); Monocytes # (Auto) 0.7 Thou/mm3 (0.0-0.8); Monocytes % (Auto) 5 % (0-12); Neutrophils # (Auto) 11.5 Thou/mm3 (1.8-7.7); Neutrophils % (Auto) 86 % (37-80); Nucleated Red Blood Cell # 0.00 Thou/mm3 (0.00-0.00); Nucleated Red Blood Cell % 0 /100 WBC (0); Platelet Count 243 Thou/mm3 (140-440); RDW Standard Deviation 68.7 fL (35.1-43.9); Red Blood Count 2.33 Miln/mm3 (4.50-5.90); White Blood Count 13.4 Thou/mm3 (3.8-10.6)
[2025-03-20 10:04] LABS: Hemoglobin 7.1 g/dL (13.5-16.0)
[2025-03-20 10:05] LABS: Albumin, Serum 2.6 gm/dL (3.4-4.8); Anion Gap 10 (7-16); BUN/Creatinine Ratio 11 Ratio (12-20); Blood Urea Nitrogen 17 mg/dL (9-23); Calcium 7.9 mg/dL (8.3-10.6); Calcium (Corrected) 9.0 mg/dL (8.5-10.1); Carbon Dioxide 23.0 mMol/L (20.0-31.0); Chloride 109 mMol/L (98-107); Creatinine (Component) 1.5 mg/dL (0.6-1.3); Estimated Creatinine Clearance 43.1 mL/min (>60); Glucose 128 mg/dL (74-106); Magnesium 2.3 mg/dL (1.6-2.6); Osmolality,Calculated 286 (275-295); Phosphorous 3.2 mg/dL (2.4-5.1); Potassium 4.1 mMol/L (3.4-5.1); Sodium 142 mMol/L (136-145); eGFR 47 See Note
[2025-03-20] MEDS: METOPROLOL SUCCINATE XL 25 MG TABCR 50 MG PO (10:05)
[2025-03-20] MEDS: THIAMINE 100 MG TABLET PO (10:05)
[2025-03-20] MEDS: AMIODARONE HCL 200 MG TABLET PO ×2 (10:06→20:45)
--- NOTE | 2025-03-20 10:30 | PC.NURSE ---
Dr. Levine made aware of patients hemoglobin result of 7.1; per Dr. Levine her will speak with his attending regarding result. No new orders received.
--- NOTE | 2025-03-20 11:20 | XR_ITS ---
Examination: Venous duplex lower extremity sonogram, bilateral. Date and time of exam: March 20, 2025, 1245 hrs. Indications: Leg swelling and pain beginning 2 days ago Technique: Multiple sonographic images of the deep venous system have been obtained. B-mode/2-D grayscale imaging of vascular structures and Doppler spectral analysis (waveforms) and color performed Both legs are examined. Findings: Deep venous systems do not demonstrate abnormal echogenicity. All visualized deep veins exhibit compressibility. All visualized deep veins exhibit augmentation. Left popliteal cyst 32 mm Impression: Negative for deep vein thrombosis
--- NOTE | 2025-03-20 11:25 | XR_ITS ---
Examination: Knee, right , 3 views Technique: Knee AP, lateral, oblique 3 views Date and time of exam: March 20, 2025, 1144 hrs. Indications: Right knee swelling and pain this week. Findings: Prominent osteopenia. Advanced tricompartment osteoarthritis. Small knee effusion No fracture Impression: Advanced tricompartment osteoarthritis
--- NOTE | 2025-03-20 11:58 | ESPR_ITS ---
<Statement entered by Jessica Kelly MD - 03/20/25 12:32> Patient was seen and examined at bedside. I agree on the assessment and plan on this note as documented by resident Jhon Levine DO PGY1. 87-year-old male with past medical history as below, patient has had a prolonged hospital course with initially undergoing EGD and colonoscopy for AVMs, further complicated by multiple embolic CVA as anticoagulation was being held due to GI bleed, A-fib RVR and eventually needing exploratory laparotomy with resection of cecum and ascending colon and ilio-ascending colostomy due to perforation of viscus with wound closure eventually on 03/17. Patient's anticoagulation was resumed per surgery discretion after wound closure patient's H&H been downtrending since requiring blood transfusion again, GI following closely, patient is n.p.o. and undergo EGD later today, hemoglobin this morning 7.1 will hold 1 unit PRBC as needed, renal function improved to creatinine 1.5. Disposition telemetry pending EGD. Case discussed with attending Dr. Aurelia Kelly MD PGY-2 Internal Medicine Documentation for date of: 03/20/25 Subjective Subjective Interval history: Overnight events: No acute events overnight. Patient was seen and examined at bedside. AM vitals and labs reviewed. Patient has no acute complaints at this time. Does note that his right knee is slightly painful. Bilateral lower extremity swelling noted. Patient had hemoglobin of 8.6 after 1 unit of blood transfused. Hemoglobin this a.m. 7.1. Patient noted to have another dark, bloody bowel movement last night. Endoscopy planned for today by GI. 1 PRBC already for transfusion if needed. Repeat H&H ordered for 2199. X-ray right knee ordered. Ultrasound of bilateral lower extremities ordered. Stopped LR maintenance fluids. Review of systems otherwise negative except for what is mentioned above. Exam Vital Signs Temp Pulse Resp BP Pulse Ox O2 Del Method O2 Flow Rate 98.4 F 88 16 158/93 H 96 Room Air 1 03/20/25 08:00 03/20/25 10:06 03/20/25 08:00 03/20/25 10:06 03/20/25 08:00 03/20/25 08:00 03/20/25 04:00 Narrative Exam Physical Exam: General: Alert, no acute distress. Skin: Warm, intact, no obvious rash. Head: Normocephalic, atraumatic. Eye: Normal conjunctiva, PERRL. Cardiovascular: Regular rate and rhythm, soft systolic murmur best heard over tricuspid/mitral region, +S1/S2. Respiratory: Lungs are clear to auscultation, respirations unlabored, no crackles, no wheezing. Gastrointestinal: Soft, nontender, non-distended. No guarding or rebound tenderness. Extremities: No edema, no cyanosis, no clubbing. Left arm and right arm dark discoloring present, non-tender. Right knee warm to touch. Neuro: No focal deficits observed. Conversant, moving all extremities. No overt cerebellar signs/incoordination. Psychiatric: Cooperative, appropriate affect. Objective Labs 03/20/25 18:26 03/20/25 08:46 Labs: Laboratory Results - last 24 hr 03/18/25 03/19/25 03/20/25 16:47 18:18 08:46 WBC 13.4 H RBC 2.33 L Hgb 8.6 L D 7.1 L Hct 26.6 L 22.2 L MCV 95 MCH 30.5 MCHC 32.0 RDW Std Deviation 68.7 H Plt Count 243 Neut % (Auto) 86 H Lymph % (Auto) 5 L [place] % (Auto) 5 Eos % (Auto) 2 Baso % (Auto) 0 Neut # (Auto) 11.5 H Lymph # (Auto) 0.7 L [place] # (Auto) 0.7 Eos # (Auto) 0.2 Baso # (Auto) 0.0 Immature Gran # (Auto) 0.18 H Absolute Nucleated RBC 0.00 Immature Gran % 1 H Nucleated RBC % 0 Sodium 142 Potassium 4.1 Chloride 109 H Carbon Dioxide 23.0 Anion Gap 10 BUN 17 Creatinine 1.5 H Estim Creat Clear Calc 43.1 L eGFR 47 L BUN/Creatinine Ratio 11 L Glucose 128 H Calculated Osmolality 286 Calcium 7.9 L Corrected Calcium 9.0 Phosphorus 3.2 Magnesium 2.3 Albumin 2.6 L Blood Type O Positive Antibody Screen NEGATIVE Crossmatch See Detail Blood Bank Wristband ID Yes ABG Interpretation ABG results: 03/05/25 03/09/25 03/12/25 13:17 23:55 15:20 ABG pH 7.45 7.46 H ABG pCO2 27 L 36 ABG pO2 122 H 88 D ABG HCO3 18 L 25 ABG O2 Saturation 100 H 99 H ABG Base Excess -5 L 1 VBG pH 7.39 VBG pCO2 36 VBG pO2 31 VBG Base Excess -3 03/12/25 15:53 ABG pH ABG pCO2 ABG pO2 ABG HCO3 ABG O2 Saturation ABG Base Excess VBG pH 7.49 VBG pCO2 34 L VBG pO2 94 H VBG Base Excess 2 Quality Measures Quality Measures none Advance care planning discussed with:: patient and spouse Assessment & Plan Assessment Current Active Medications: Generic Name Dose Route Start Last Admin Trade Name Freq PRN Reason Stop Dose Admin Acetaminophen 650 mg 03/05/25 15:28 03/11/25 01:34 Acetaminophen 325 Mg Tablet PO 04/04/25 15:27 650 mg Q6H PRN Administration Fever >101.5 or pain (1-3) Amiodarone HCl 200 mg 03/14/25 21:30 03/20/25 10:06 Amiodarone Hcl 200 Mg Tablet PO 04/13/25 21:29 200 mg BID CLAUDE Administration Atorvastatin Calcium 40 mg 03/17/25 21:00 03/19/25 20:37 Atorvastatin Calcium 20 Mg Tablet PO 04/16/25 20:59 40 mg HS CLAUDE Administration Ipratropium [place] 0.5 mg 03/12/25 15:00 03/20/25 06:22 Ipratropium Rt 0.5 Mg/ 2.5 Ml Nebu INH 04/11/25 14:59 0.5 mg Q8HRRT CLAUDE Administration Labetalol HCl 10 mg 03/13/25 22:39 03/14/25 20:56 Labetalol Inj 5 Mg/Ml Vial 20 Ml IVP 04/12/25 09:59 10 mg Q4HR PRN Administration Sbp > 170 or DBP > 120 Levalbuterol HCl 1.25 mg 03/12/25 14:00 03/20/25 06:22 Levalbuterol Rt 1.25 Mg/0.5 Ml Nebu INH 04/11/25 13:59 1.25 mg Q8HR CLAUDE Administration Metoprolol Succinate 50 mg 03/19/25 09:00 03/20/25 10:05 Metoprolol Succinate Xl 25 Mg Tabcr PO 04/18/25 08:59 50 mg QDAY CLAUDE Administration Ondansetron HCl 4 mg 03/05/25 13:06 Ondansetron Inj 2 Mg/Ml Inj 2 Ml IVP 04/04/25 13:05 Q4HR PRN NAUSEA OR VOMITING Pantoprazole Sodium 40 mg 03/12/25 12:45 03/20/25 10:06 Pantoprazole Inj 40 Mg Vial IVP 04/11/25 12:44 40 mg BID CLAUDE Administration Pharmacy Consult 1 each 03/14/25 05:23 Pharmacy Renal Dose Adjustment 1 Ea XX 04/13/25 05:22 PRN PRN CONSULT Sodium Chloride 3 ml 03/12/25 10:45 03/16/25 14:14 Sodium Chloride Rt Aleena 0.9% 3 Ml Nebu INH 04/11/25 10:44 3 ml PRN PRN Administration SOLN Thiamine HCl 100 mg 03/17/25 13:00 03/20/25 10:05 Thiamine 100 Mg Tablet PO 04/16/25 12:59 100 mg QDAY CLAUDE Administration Plan Devan Rios is an 79M pmhx significant for A-fib on Xarelto, hypertension, RA, PMR, and CKDIIIa who presented to [facility] ED on 03/05 for generalized weakness and inability to walk, admitted for upper and lower GIB, course complicated by ischemic CVAs, AMS and bowel perforation requring emergent surgery. #Upper and lower GI bleed 2/2 #Angiodysplasias of GI tract #Symptomatic anemia Patient was brought to ED due to generalized fatigue and difficulty waking on the morning of 03/05 with melena started 2-3 weeks ago. Admission H&H 5/7/17.2 s/p 2 prbc on 03/05 and 2 more pRBC on 03/07 with stabilization of H&H. Initial EGD showed angiodysplastic bleeding in gastric body and gastric fundus, requiring cautery and clipping. Repeat EGD 03/07, which showed no additional bleeding Colonoscopy planned for 03/08, delayed to 03/09, which showed moderate diverticulosis in sigmoid and descending colon, and multiple bleeding colonic angiodysplastic lesions that were treated with argon plasma coagulation Ddx for multiple angiodysplasias possibly secondary to subtherapeutic anticoagulation on Xarelto 15 mg instead of Xarelto 20 mg causing multiple emboli with possible embolisms to GI tract Plan: - GI consulted, recs appreciated - Patient to follow-up with Dr. Bauer, GI, and referral to perform capsule endoscopy - GI plans to perform upper endoscopy 03/20 - Repeat H&H 2200 - Hold Xarelto given active GI bleed #DVT ruled out #Right knee pain and warmth #Bilateral lower extremity swelling Patient noted to have bilateral lower extremity swelling on 03/20. Patient also has pain in right knee that is noted to be warmer than left knee. - US bilateral lower extremity ordered, negative for DVT - XR right knee ordered, shows osteopenia, small compartment effusion, and advanced tricompartment osteoarthritis #VANNA on CKD likely prerenal In the ED, the patient had a BUN of 85, creatinine of 2.1, and GFR of 31. On chart review, patient has CKDIII with baseline Cr 1.4-1.7. VANNA likely 2/2 acute loss of blood due to GI bleed, resulting in decreased blood flow to the kidneys, which resolved 03/09 03/12 Cr increased to 1.8, likely 2/2 to suspected SBO. 03/18 Cr increased to 2.0 from 1.7, likely 2/2 dehydration has been NPO and water restriction Plan: ? Renally dose medications ? Avoid nephrotoxic medications #Bowel perforation, serosal tear, cecum #status post cecum resection 03/12/25 #s/p surgical site closure 03/17/25 #Pneumoperitoneum c/f bowel perforation #Suspected SBO vs ileus Overnight on 03/11, patient's abdomen acutely distended and tense c/f SBO vs ileus. Repeat KUB showed high grade mechanical SBO pattern. Patient is unable to communicate if he is passing gas, AOx2 to person and time only. CTAP showed pneumoperitoneum, suspicious for ischemic bowel including right colon and small bowel, significantly distended small bowel loops consistent with obstruction Plan: - Continue oral medication - General surgery Dr. Smith consulted, performed exploratory laparotomy, found serosal tear in cecum, that was repaired with resection of the cecum and the ascending colon and ilio ascending colostomy - Closure of incision 03/17 - Resume regular diet - Piperacillin/tazobactam (03/10-03/17) per ID recs #Acute encephalopathy, likely multifactorial 2/2 #Aspiration pneumonia #Fever, improving Presented with fatigue that had sudden onset on 03/05 in the morning likely 2/2 symptomatic anemia. Rapid response x2 were called 03/08 and 03/10 for fever and acute AMS. Since, patient has had fluctuations of mental status return to baseline, then becoming altered. Patient had a fever on 03/08 initially, which has become more frequent over time. Tmax 102.4. Patient did have a sudden spike in WBC on second rapid response without leukocytosis, however this WBC quickly resolved back to baseline about 3 hours later. On 03/11 nursing recorded episode of vomiting, where patient likely aspirated as morning of 03/12, patient desaturated to 93% requiring 4L O2 oxymask. Acute encephalopathy likely multifactorial iso aspiration PNA and stroke. Fever ddx includes L arm cellulitis, meningitis, delayed nonhemolytic transfusion reaction, febrile nonhemolytic transfusion reaction, however improving on antibiotics. Dixon test neg, digoxin levels 0.7, folate and B12 wnl s/p B12 injection 03/09, T4 wnl, CRP and ESR wnl, cocci IgM and IgG neg, BCx and UCx NGTD Plan: - Piperacillin/tazobactam (03/10-03/17) - Scheduled Duonebs q8h - Neurology consulted, appreciate recommendations - Infectious disease consulted, appreciate recommendations, abx as above - Aspiration precautions elevate head of bed at 30 degrees - Patient passed swallow re-evaluation by speech therapy, recommends chopped diet #Ischemic CVA, embolic (frontal lobe, parietal lobe, basal ganglia, posterior left temporal lobe) #History of TIA #Transient aphasia Patient has hx of atrial fibrillation on Xarelto which was held on admission 03/05 due to GIB. Due to episodes of altered mental status starting 03/08, the patient had a code stroke called. CT head without contrast and CTA head and neck were negative for stroke. Neurology was consulted, and at the time CT head and CTA head and neck were negative for acute strokes. MRI was not recommended at that time due to concerns of an underlying metabolic encephalopathy. Received Xarelto 15 mg 03/10 and 03/11 03/11 MRI showed multiple embolic type acute infarcts in frontal, parietal lobes, basal ganglia and posterior left temporal lobe Plan: - Xarelto held given GI bleed - Lipitor 40 mg nightly resumed - Neurology consulted, recs appreciated #A-fib with RVR, rate not controlled, on Xarelto Patient has a history of atrial fibrillation and sees detail manager Dr. Colon for management. Patient is currently on Xarelto and digoxin. Asked pharmacy about digoxin dosing and they confirmed 0.125 mg daily while patient's family states that the patient takes 0.125 mg Friday and Friday. Contacted Dr. Colon for confirmation, and he stated that the patient was okay taking 0.125 mg Friday. Patient's uncontrolled rate a-fib RVR is likely 2/2 presence of likely suspected SBO vs ileus CHADS-VASC score 4 (stroke risk 4.8% per year) HAS-BLED score 3 (bleed risk 5.8%, patient is at high risk for major bleeding) Plan: - Stopped patient's home digoxin - Consulted cardiology, Dr. Colon, recs appreciated - Amiodarone 200mg BID - Metoprolol XL 50 mg daily - Xarelto held given GI bleed #CHF (EF 55% 2024) Patient does not have a documented history of CHF, but patient takes furosemide 20 mg p.o. daily at home. Echocardiogram done on 04/30/2018 showed EF of 50% with moderate mitral regurgitation. Plan: ? Will hold patient's home furosemide given suspected SBO ? Strict ins and outs and daily weights ? Echocardiogram 03/11 showed negative bubble study, EF 55%, severely increased left atrial volume, aortic valve sclerosis without stenosis, mild mitral regurgitation, mild aortic regurgitation, mild tricuspid regurgitation, no thrombi. #Primary Hypertension Patient has a history of hypertension. Patient takes benazepril 40 mg daily and clonidine 0.2 mg 3 times daily at home. Plan: - Will hold patient's home antihypertensives of benazepril, clonidine, furosemide - Will monitor blood pressure closely - Metoprolol XL 50mg daily #Vitamin B12 deficiency Patient was noted to have B12 of 94 on 03/06. - B12 1,000 mcg injection, repeat B12 03/14 noted to be 1484. #Vitamin B1 deficiency Patient noted to have vitamin B1 of 6 as measured on 03/11. Might potentially be contributing to episodes of AMS in the patient. Patient does have a history of frequent alcohol consumption. - Thiamine supplement 100 mg daily DVT Prophylaxis: N/A GI Prophylaxis: Protonix Bowel: N/A Diet: Cardiac Justin: N/A Lines: Peripheral IV Antibiotics: N/A Code Status: FULL Reason for Hospitalization: GI bleed Other Barriers to Discharge: Unstable H&H Patient plan of care was discussed with attending physician Dr. Spaulding and senior resident Dr. Kelly (PGY-2) Jhon Levine DO Internal Medicine PGY-1 Attending Provider Attestation/Addendum I attest that I was physically present for the evaluation, physical examination, lab and imaging review of the patient with the residents. I discussed the case with the residents and agree with the findings and plans of care as documented above. At bedside today, patient states he is feeling well. No acute overnight events. He complains about pain on his right knee. Noted to have warmth, pain and swelling of right knee. Also has bilateral lower extremity edema. We will obtain x-ray of the right knee along with venous Doppler of bilateral legs. Venous Doppler was negative for DVT, x-ray knees showed advanced osteoarthritis with small knee effusion. Hemoglobin noted to be downtrending, 7.1 this morning, discussed with GI, patient underwent EGD today, did not find any active bleeding. We will continue to hold his anticoagulation as recommended by GI, we will also obtain follow-up H&H and transfuse if less than 7. Antithrombotics are also on hold due to the GI bleed. Aurelia Spaulding MD
--- NOTE | 2025-03-20 12:43 | PC.NURSE ---
Patient transported to Ultrasound via chad Mooney CNA. Patient awake, alert and oriented with no signs of acute distress.
--- NOTE | 2025-03-20 15:40 | PC.NURSE ---
Patient transported to endoscopy via gurney per manager baby. Patient awake, alert and oriented with no signs of acute distress. at bedside.
[2025-03-20] MEDS: SODIUM CHLORIDE 0.9% 500 ML 500 ML 20 ML IV (15:57)
--- NOTE | 2025-03-20 16:16 | PC.SS ---
Per afternoon rounding note: Possible transfer. Pt will have an EGD today. No d/c date at this time.
--- NOTE | 2025-03-20 16:59 | SUR.PHASEI ---
Report given to Johana LARA via phone. Taken to room 268 via [employer]. and son accompanied us to room. Transferred back to bed with the assistance of Johana LARA and SPACE CONTROL AGENT. Tolerated well. Care resumed by Johana LARA at this time.
[2025-03-20 18:34] LABS: Hematocrit 24.3 % (41.0-53.0)
[2025-03-20 18:35] LABS: Hemoglobin 7.6 g/dL (13.5-16.0)
[2025-03-20] MEDS: ATORVASTATIN CALCIUM 20 MG TABLET 40 MG PO (20:45)
[2025-03-20 21:55] LABS: Hematocrit 20.9 % (41.0-53.0)
[2025-03-20] MEDS: ACETAMINOPHEN 325 MG TABLET 650 MG PO (21:57)
[2025-03-20 22:01] LABS: Hemoglobin 6.7 g/dL (13.5-16.0)
[2025-03-20] MEDS: ACETAMINOPHEN IVPB 1,000 MG/100 ML VIAL 250 MG IV (22:31)
--- NOTE | 2025-03-20 23:55 | PD.VPROG1 ---
Telemedicine visit statement This visit was conducted with the use of interactive audio and video telecommunications system that permits real time communication between the patient and the provider. Patient's verbal consent for virtual visit was obtained on 03/20/25 at 2355. Documentation for date of: 03/20/25 Subjective Subjective Interval history: Patient is in telemetry, continues to have GI bleeding and is getting transfusion. Anticoagulation is on hold Virtual exam Vital Signs Temp Pulse Resp BP Pulse Ox O2 Del Method O2 Flow Rate 98.5 F 98 20 133/75 H 97 Room Air 7 03/20/25 22:57 03/20/25 22:55 03/20/25 22:55 03/20/25 22:55 03/20/25 22:55 03/20/25 20:00 03/20/25 22:40 Objective Labs 03/21/25 03:24 03/21/25 03:24 Labs: Laboratory Results - last 24 hr 03/18/25 03/20/25 03/20/25 16:47 08:46 18:26 WBC 13.4 H RBC 2.33 L Hgb 7.1 L 7.6 L Hct 22.2 L 24.3 L MCV 95 MCH 30.5 MCHC 32.0 RDW Std Deviation 68.7 H Plt Count 243 Neut % (Auto) 86 H Lymph % (Auto) 5 L [place] % (Auto) 5 Eos % (Auto) 2 Baso % (Auto) 0 Neut # (Auto) 11.5 H Lymph # (Auto) 0.7 L [place] # (Auto) 0.7 Eos # (Auto) 0.2 Baso # (Auto) 0.0 Immature Gran # (Auto) 0.18 H Absolute Nucleated RBC 0.00 Immature Gran % 1 H Nucleated RBC % 0 Sodium 142 Potassium 4.1 Chloride 109 H Carbon Dioxide 23.0 Anion Gap 10 BUN 17 Creatinine 1.5 H Estim Creat Clear Calc 43.1 L eGFR 47 L BUN/Creatinine Ratio 11 L Glucose 128 H Calculated Osmolality 286 Calcium 7.9 L Corrected Calcium 9.0 Phosphorus 3.2 Magnesium 2.3 Albumin 2.6 L Blood Type O Positive Antibody Screen NEGATIVE Crossmatch See Detail Blood Bank Wristband ID Yes 03/20/25 21:30 WBC RBC Hgb 6.7 L* Hct 20.9 L* MCV MCH MCHC RDW Std Deviation Plt Count Neut % (Auto) Lymph % (Auto) [place] % (Auto) Eos % (Auto) Baso % (Auto) Neut # (Auto) Lymph # (Auto) [place] # (Auto) Eos # (Auto) Baso # (Auto) Immature Gran # (Auto) Absolute Nucleated RBC Immature Gran % Nucleated RBC % Sodium Potassium Chloride Carbon Dioxide Anion Gap BUN Creatinine Estim Creat Clear Calc eGFR BUN/Creatinine Ratio Glucose Calculated Osmolality Calcium Corrected Calcium Phosphorus Magnesium Albumin Blood Type Antibody Screen Crossmatch Blood Bank Wristband ID ABG Interpretation ABG results: 03/05/25 03/09/25 03/12/25 13:17 23:55 15:20 ABG pH 7.45 7.46 H ABG pCO2 27 L 36 ABG pO2 122 H 88 D ABG HCO3 18 L 25 ABG O2 Saturation 100 H 99 H ABG Base Excess -5 L 1 VBG pH 7.39 VBG pCO2 36 VBG pO2 31 VBG Base Excess -3 03/12/25 15:53 ABG pH ABG pCO2 ABG pO2 ABG HCO3 ABG O2 Saturation ABG Base Excess VBG pH 7.49 VBG pCO2 34 L VBG pO2 94 H VBG Base Excess 2 Assessment & Plan Problem List (1) Cerebrovascular accident: Status: Acute Assessment and plan: Secondary to cardioembolic phenomena from atrial fibrillation Could not continue with anticoagulation because of GI bleeding Continue with physical therapy and Occupational Therapy (2) Atrial fibrillation: Status: Chronic Assessment and plan: Continue with rate control (3) Hypertension: Status: Chronic Assessment and plan: Continue with current blood pressure medications (4) Severe anemia: Status: Acute Assessment and plan: Getting blood transfusion, continue to monitor hemoglobin and hematocrit closely (5) GI (gastrointestinal bleed): Status: Acute Assessment and plan: Continue to hold anticoagulant therapy, check hemoglobin and hematocrit closely and transfuse accordingly
[2025-03-21] VITALS (17 sets, daily range): BP systolic 109–159; BP diastolic 69–92; PULSE 64–99; RESP 13–23; TEMP 36.2–37.3; O2SAT 93–100; BMI 26.5
[2025-03-21 02:32] LABS: Hematocrit 21.6 % (41.0-53.0)
[2025-03-21 02:34] LABS: Hemoglobin 7.4 g/dL (13.5-16.0)
[2025-03-21 03:48] LABS: Basophils # (Auto) 0.1 Thou/mm3 (0.0-0.2); Basophils % (Auto) 1 % (0-2.5); Eosinophils # (Auto) 0.2 Thou/mm3 (0.0-0.5); Eosinophils % (Auto) 2 % (0-10); Hematocrit 22.3 % (41.0-53.0); Immature Granulocytes Auto 0.17 Thou/mm3 (0.00-0.00); Lymphocytes # (Auto) 0.9 Thou/mm3 (1.0-4.8); Lymphocytes % (Auto) 7 % (10-50); Mean Corpuscular HGB Conc 32.3 g/dl (31.0-37.0); Mean Corpuscular Hemoglobin 30.5 pg (25.0-35.0); Mean Corpuscular Volume 95 fL (80-100); Monocytes # (Auto) 0.9 Thou/mm3 (0.0-0.8); Monocytes % (Auto) 7 % (0-12); Neutrophils # (Auto) 11.0 Thou/mm3 (1.8-7.7); Neutrophils % (Auto) 83 % (37-80); Nucleated Red Blood Cell # 0.00 Thou/mm3 (0.00-0.00); Nucleated Red Blood Cell % 0 /100 WBC (0); Platelet Count 268 Thou/mm3 (140-440); RDW Standard Deviation 64.2 fL (35.1-43.9); Red Blood Count 2.36 Miln/mm3 (4.50-5.90); White Blood Count 13.2 Thou/mm3 (3.8-10.6)
[2025-03-21 03:49] LABS: Hemoglobin 7.2 g/dL (13.5-16.0)
[2025-03-21 03:57] LABS: Albumin, Serum 2.5 gm/dL (3.4-4.8); Anion Gap 8 (7-16); BUN/Creatinine Ratio 10 Ratio (12-20); Blood Urea Nitrogen 16 mg/dL (9-23); Calcium 7.8 mg/dL (8.3-10.6); Calcium (Corrected) 9.0 mg/dL (8.5-10.1); Carbon Dioxide 22.1 mMol/L (20.0-31.0); Chloride 111 mMol/L (98-107); Creatinine (Component) 1.6 mg/dL (0.6-1.3); Estimated Creatinine Clearance 40.4 mL/min (>60); Glucose 196 mg/dL (74-106); Magnesium 2.1 mg/dL (1.6-2.6); Osmolality,Calculated 287 (275-295); Phosphorous 4.1 mg/dL (2.4-5.1); Potassium 4.3 mMol/L (3.4-5.1); Sodium 141 mMol/L (136-145); eGFR 43 See Note
[2025-03-21] MEDS: LEVALBUTEROL RT 1.25 MG/0.5 ML NEBU INH ×3 (06:14→23:06)
[2025-03-21] MEDS: IPRATROPIUM RT 0.5 MG/ 2.5 ML NEBU INH ×3 (06:14→23:06)
--- NOTE | 2025-03-21 07:57 | ESPR_ITS ---
<Statement entered by Aurelia Spaulding MD - 03/23/25 16:19> I attest that I was physically present for the evaluation, physical examination, lab and imaging review of the patient with the residents. I discussed the case with the residents and agree with the findings and plans of care as documented below. Aurelia Spaulding MD <Statement entered by Jessica Kelly MD - 03/22/25 10:01> Patient was seen and examined at bedside. I agree on the assessment and plan on this note as documented by resident Jhon Levine DO PGY1. 79-year-old male with past medical history as below, patient continues to have significant blood loss through the GI tract has multiple bowel movements with gross blood clots which are bloody, did undergo nuclear medicine scan today which shows focal isotope accumulation in region of stomach. Patient requiring active blood transfusions as required 10 unit PRBC throughout the hospitalization, discussed with gastroenterology in detail patient will be transferred to higher level of care per gastroenterology recommendations for small bowel bleed workup. Discussed with transfer clerk started transfer process. Case discussed with attending Dr. Aurelia Kelly MD PGY-2 Documentation for date of: 03/21/25 Subjective Subjective Interval history: Overnight events: Patient had repeat H&H 2130 which resulted as 6.7 hemoglobin. Patient received a transfusion of another unit of pRBC. Repeat H&H showed hemoglobin of 7.4, which prompted another transfusion of pRBC to keep goal hemoglobin more than 8. Total of 2 pRBC transfused overnight. AM vitals and labs reviewed. Labs and vitals this morning are stable. AM hemoglobin resulted as 7.2 and this morning nursing staff called because the patient had a bloody bowel movement with black tarry stools and several clots. EGD performed yesterday did not show any additional bleeding in the esophagus or stomach. At this point, the patient has received 10 unites of pRBCs over the course of his hospitalization. Current pattern still suggests an upper GI bleed. Unable to do colonoscopy at this time given recent abdominal surgery for cecum perforation repair. These constellation of symptoms suggest GI bleed within the small bowel, likely secondary to angiodysplastic bleedings as found in both the stomach and colon previously. At this facility, we do NOT have the capability to do CAPSULE ENDOSCOPY for identification of GI bleed in small bowel. This case was discussed with Dr. Bauer, GI, who believed that this case REQUIRES TRANSFER to facility of higher care who has the medical equipment capable of managing GI bleed of the small intestine. Per Dr. Bauer, he discussed the situation with the patient and his prior to performing the EGD on 03/20, explaining to them that if the patient continues to have drop in hemoglobin, it would warrant TRANSFER to higher level care facility as this facility has exhausted all available resources in managing his GI bleed. Discussed case with Dr. Acharya, general surgery, who also agrees that this patient requires TRANSFER to facility with higher level of care. From general surgery standpoint, the patient is safe to be transferred as he is tolerating regular diet and having bowel movements. Will start transfer orders now. Patient is currently stable for transfer. Review of systems otherwise negative except for what is mentioned above. Exam Vital Signs Temp Pulse Resp BP Pulse Ox O2 Del Method O2 Flow Rate 97.2 F 86 20 142/88 H 100 Room Air 2 03/21/25 07:43 03/21/25 07:43 03/21/25 07:43 03/21/25 07:43 03/21/25 06:28 03/21/25 00:00 03/21/25 06:28 Narrative Exam Physical Exam: General: Alert, no acute distress. Skin: Warm, intact, no obvious rash. Head: Normocephalic, atraumatic. Eye: Normal conjunctiva, PERRL. Cardiovascular: Regular rate and irregular rhythm, soft systolic murmur best heard over tricuspid/mitral region, +S1/S2. Respiratory: Lungs are clear to auscultation, respirations unlabored, no crackles, no wheezing. Gastrointestinal: Soft, nontender, non-distended. No guarding or rebound tenderness. Extremities: No edema, no cyanosis, no clubbing. Left arm and right arm dark discoloring present, non-tender. Right knee warm to touch. Neuro: No focal deficits observed. Conversant, moving all extremities. No overt cerebellar signs/incoordination. Objective Labs 03/21/25 09:30 03/21/25 03:24 Labs: Laboratory Results - last 24 hr 03/18/25 03/20/25 03/20/25 16:47 08:46 18:26 WBC 13.4 H RBC 2.33 L Hgb 7.1 L 7.6 L Hct 22.2 L 24.3 L MCV 95 MCH 30.5 MCHC 32.0 RDW Std Deviation 68.7 H Plt Count 243 Neut % (Auto) 86 H Lymph % (Auto) 5 L [place] % (Auto) 5 Eos % (Auto) 2 Baso % (Auto) 0 Neut # (Auto) 11.5 H Lymph # (Auto) 0.7 L [place] # (Auto) 0.7 Eos # (Auto) 0.2 Baso # (Auto) 0.0 Immature Gran # (Auto) 0.18 H Absolute Nucleated RBC 0.00 Immature Gran % 1 H Nucleated RBC % 0 Sodium 142 Potassium 4.1 Chloride 109 H Carbon Dioxide 23.0 Anion Gap 10 BUN 17 Creatinine 1.5 H Estim Creat Clear Calc 43.1 L eGFR 47 L BUN/Creatinine Ratio 11 L Glucose 128 H Calculated Osmolality 286 Calcium 7.9 L Corrected Calcium 9.0 Phosphorus 3.2 Magnesium 2.3 Albumin 2.6 L Blood Type O Positive Antibody Screen NEGATIVE Crossmatch See Detail Blood Bank Wristband ID Yes 03/20/25 03/21/25 03/21/25 21:30 02:10 03:24 WBC 13.2 H RBC 2.36 L Hgb 6.7 L* 7.4 L 7.2 L Hct 20.9 L* 21.6 L* 22.3 L MCV 95 MCH 30.5 MCHC 32.3 RDW Std Deviation 64.2 H Plt Count 268 Neut % (Auto) 83 H Lymph % (Auto) 7 L [place] % (Auto) 7 Eos % (Auto) 2 Baso % (Auto) 1 Neut # (Auto) 11.0 H Lymph # (Auto) 0.9 L [place] # (Auto) 0.9 H Eos # (Auto) 0.2 Baso # (Auto) 0.1 Immature Gran # (Auto) 0.17 H Absolute Nucleated RBC 0.00 Immature Gran % 1 H Nucleated RBC % 0 Sodium 141 Potassium 4.3 Chloride 111 H Carbon Dioxide 22.1 Anion Gap 8 BUN 16 Creatinine 1.6 H Estim Creat Clear Calc 40.4 L eGFR 43 L BUN/Creatinine Ratio 10 L Glucose 196 H D Calculated Osmolality 287 Calcium 7.8 L Corrected Calcium 9.0 Phosphorus 4.1 Magnesium 2.1 Albumin 2.5 L Blood Type O Positive Antibody Screen NEGATIVE Crossmatch See Detail Blood Bank Wristband ID Yes ABG Interpretation ABG results: 03/05/25 03/09/25 03/12/25 13:17 23:55 15:20 ABG pH 7.45 7.46 H ABG pCO2 27 L 36 ABG pO2 122 H 88 D ABG HCO3 18 L 25 ABG O2 Saturation 100 H 99 H ABG Base Excess -5 L 1 VBG pH 7.39 VBG pCO2 36 VBG pO2 31 VBG Base Excess -3 03/12/25 15:53 ABG pH ABG pCO2 ABG pO2 ABG HCO3 ABG O2 Saturation ABG Base Excess VBG pH 7.49 VBG pCO2 34 L VBG pO2 94 H VBG Base Excess 2 Quality Measures Quality Measures none Advance care planning discussed with:: patient and spouse Assessment & Plan Assessment Current Active Medications: Generic Name Dose Route Start Last Admin Trade Name Freq PRN Reason Stop Dose Admin Acetaminophen 650 mg 03/05/25 15:28 03/20/25 21:57 Acetaminophen 325 Mg Tablet PO 04/04/25 15:27 650 mg Q6H PRN Administration Fever >101.5 or pain (1-3) Amiodarone HCl 200 mg 03/14/25 21:30 03/20/25 20:45 Amiodarone Hcl 200 Mg Tablet PO 04/13/25 21:29 200 mg BID CLAUDE Administration Atorvastatin Calcium 40 mg 03/17/25 21:00 03/20/25 20:45 Atorvastatin Calcium 20 Mg Tablet PO 04/16/25 20:59 40 mg HS CLAUDE Administration Sodium Chloride 500 mls @ 20 mls/hr 03/20/25 15:53 03/20/25 15:57 Ns IV 03/21/25 15:52 20 mls/hr .Q24H ONE Administration Ipratropium [place] 0.5 mg 03/12/25 15:00 03/21/25 06:14 Ipratropium Rt 0.5 Mg/ 2.5 Ml Nebu INH 04/11/25 14:59 0.5 mg Q8HRRT CLAUDE Administration Labetalol HCl 10 mg 03/13/25 22:39 03/14/25 20:56 Labetalol Inj 5 Mg/Ml Vial 20 Ml IVP 04/12/25 09:59 10 mg Q4HR PRN Administration Sbp > 170 or DBP > 120 Levalbuterol HCl 1.25 mg 03/12/25 14:00 03/21/25 06:14 Levalbuterol Rt 1.25 Mg/0.5 Ml Nebu INH 04/11/25 13:59 1.25 mg Q8HR CLAUDE Administration Metoprolol Succinate 50 mg 03/19/25 09:00 03/20/25 10:05 Metoprolol Succinate Xl 25 Mg Tabcr PO 04/18/25 08:59 50 mg QDAY CLAUDE Administration Ondansetron HCl 4 mg 03/05/25 13:06 Ondansetron Inj 2 Mg/Ml Inj 2 Ml IVP 04/04/25 13:05 Q4HR PRN NAUSEA OR VOMITING Pantoprazole Sodium 40 mg 03/12/25 12:45 03/20/25 20:44 Pantoprazole Inj 40 Mg Vial IVP 04/11/25 12:44 40 mg BID CLAUDE Administration Pharmacy Consult 1 each 03/14/25 05:23 Pharmacy Renal Dose Adjustment 1 Ea XX 04/13/25 05:22 PRN PRN CONSULT Sodium Chloride 3 ml 03/12/25 10:45 03/16/25 14:14 Sodium Chloride Rt Aleena 0.9% 3 Ml Nebu INH 04/11/25 10:44 3 ml PRN PRN Administration SOLN Thiamine HCl 100 mg 03/17/25 13:00 03/20/25 10:05 Thiamine 100 Mg Tablet PO 04/16/25 12:59 100 mg QDAY CLAUDE Administration Plan Devan Rios is an 79M pmhx significant for A-fib on Xarelto, hypertension, RA, PMR, and CKDIIIa who presented to [facility] ED on 03/05 for generalized weakness and inability to walk, admitted for upper and lower GIB, course complicated by ischemic CVAs, AMS and bowel perforation requring emergent surgery. #Suspected small intestine GI bleed 2/ #Angiodysplasias of GI tract #Upper GI bleed and lower GI bleed #Symptomatic anemia Patient was brought to ED due to generalized fatigue and difficulty waking on the morning of 03/05 with melena started 2-3 weeks ago. Admission H&H 12/01/17.2 s/p 2 prbc on 03/05 and 2 more pRBC on 03/07 with stabilization of H&H. Initial EGD showed angiodysplastic bleeding in gastric body and gastric fundus, requiring cautery and clipping. Repeat EGD 03/07, which showed no additional bleeding Colonoscopy planned for 03/08, delayed to 03/09, which showed moderate diverticulosis in sigmoid and descending colon, and multiple bleeding colonic angiodysplastic lesions that were treated with argon plasma coagulation Ddx for multiple angiodysplasias possibly secondary to subtherapeutic anticoagulation on Xarelto 15 mg instead of Xarelto 20 mg causing multiple emboli with possible embolisms to GI tract Plan: - GI consulted, recs appreciated - Patient to follow-up with Dr. Bauer, GI, and referral to perform capsule endoscopy - GI performed EGD 03/20, which did not show additional signs of bleeding in stomach - Hold Xarelto given active GI bleed - NM GI scan ordered, pending - Transfer process started to facility of higher level of care for suspected small intestine bleed given after a total of 10 units of pRBC transfused (dates: 03/05, 03/05, 03/07, 03/07, 03/12, 03/13, 03/18, 03/19, 03/20, 03/21) but hemoglobin still labile; Dr. Bauer, GI, and Dr. Acharya, general surgery, are in agreement that patient requires transfer as GI bleed is most likely in small intestine given EGD negative for bleeding (03/07 and 03/20) and EGD resolved initial bleeding in stomach (03/06) and colonoscopy resolved bleeding in colon (03/09). Patient is unable to tolerate additional colonscopy given recent resection of cecum. #VANNA on CKD likely prerenal In the ED, the patient had a BUN of 85, creatinine of 2.1, and GFR of 31. On chart review, patient has CKDIII with baseline Cr 1.4-1.7. VANNA likely 2/2 acute loss of blood due to GI bleed, resulting in decreased blood flow to the kidneys, which resolved 03/09 03/12 Cr increased to 1.8, likely 2/2 to suspected SBO. 03/18 Cr increased to 2.0 from 1.7, likely 2/2 dehydration has been NPO and water restriction Plan: ? Renally dose medications ? Avoid nephrotoxic medications #Bowel perforation, serosal tear, cecum #status post cecum resection 03/12/25 #s/p surgical site closure 03/17/25 #Pneumoperitoneum c/f bowel perforation Overnight on 03/11, patient's abdomen acutely distended and tense c/f SBO vs ileus. Repeat KUB showed high grade mechanical SBO pattern. Patient is unable to communicate if he is passing gas, AOx2 to person and time only. CTAP showed pneumoperitoneum, suspicious for ischemic bowel including right colon and small bowel, significantly distended small bowel loops consistent with obstruction Plan: - Continue oral medication - General surgery Dr. Smith consulted, performed exploratory laparotomy, found serosal tear in cecum, that was repaired with resection of the cecum and the ascending colon and ilio ascending colostomy - Closure of incision 03/17 - Resume regular diet - Piperacillin/tazobactam (03/10-03/17) per ID recs #DVT ruled out #Right knee pain and warmth #Bilateral lower extremity swelling Patient noted to have bilateral lower extremity swelling on 03/20. Patient also has pain in right knee that is noted to be warmer than left knee. - US bilateral lower extremity ordered, negative for DVT - XR right knee ordered, shows osteopenia, small compartment effusion, and advanced tricompartment osteoarthritis #Acute encephalopathy, likely multifactorial 2/2 #Aspiration pneumonia #Fever, improving Presented with fatigue that had sudden onset on 03/05 in the morning likely 2/2 symptomatic anemia. Rapid response x2 were called 03/08 and 03/10 for fever and acute AMS. Since, patient has had fluctuations of mental status return to baseline, then becoming altered. Patient had a fever on 03/08 initially, which has become more frequent over time. Tmax 102.4. Patient did have a sudden spike in WBC on second rapid response without leukocytosis, however this WBC quickly resolved back to baseline about 3 hours later. On 03/11 nursing recorded episode of vomiting, where patient likely aspirated as morning of 03/12, patient desaturated to 93% requiring 4L O2 oxymask. Acute encephalopathy likely multifactorial iso aspiration PNA and stroke. Fever ddx includes L arm cellulitis, meningitis, delayed nonhemolytic transfusion reaction, febrile nonhemolytic transfusion reaction, however improving on antibiotics. Dixon test neg, digoxin levels 0.7, folate and B12 wnl s/p B12 injection 03/09, T4 wnl, CRP and ESR wnl, cocci IgM and IgG neg, BCx and UCx NGTD Plan: - Piperacillin/tazobactam (03/10-03/17) - Scheduled Duonebs q8h - Neurology consulted, appreciate recommendations - Infectious disease consulted, appreciate recommendations, abx as above - Aspiration precautions elevate head of bed at 30 degrees - Patient passed swallow re-evaluation by speech therapy, recommends chopped diet #Ischemic CVA, embolic (frontal lobe, parietal lobe, basal ganglia, posterior left temporal lobe) #History of TIA #Transient aphasia Patient has hx of atrial fibrillation on Xarelto which was held on admission 03/05 due to GIB. Due to episodes of altered mental status starting 03/08, the patient had a code stroke called. CT head without contrast and CTA head and neck were negative for stroke. Neurology was consulted, and at the time CT head and CTA head and neck were negative for acute strokes. MRI was not recommended at that time due to concerns of an underlying metabolic encephalopathy. Received Xarelto 15 mg 03/10 and 03/11 03/11 MRI showed multiple embolic type acute infarcts in frontal, parietal lobes, basal ganglia and posterior left temporal lobe Plan: - Xarelto held given GI bleed - Lipitor 40 mg nightly resumed - Neurology consulted, recs appreciated #A-fib with RVR, rate not controlled, on Xarelto Patient has a history of atrial fibrillation and sees fruit preserver Dr. Colon for management. Patient is currently on Xarelto and digoxin. Asked pharmacy about digoxin dosing and they confirmed 0.125 mg daily while patient's family states that the patient takes 0.125 mg Friday and Friday. Contacted Dr. Colon for confirmation, and he stated that the patient was okay taking 0.125 mg Friday. Patient's uncontrolled rate a-fib RVR is likely 2/2 presence of likely suspected SBO vs ileus CHADS-VASC score 4 (stroke risk 4.8% per year) HAS-BLED score 3 (bleed risk 5.8%, patient is at high risk for major bleeding) Plan: - Stopped patient's home digoxin - Consulted cardiology, Dr. Colon, recs appreciated - Amiodarone 200mg BID - Metoprolol XL 50 mg daily - Xarelto held given GI bleed #CHF (EF 55% 2024) Patient does not have a documented history of CHF, but patient takes furosemide 20 mg p.o. daily at home. Echocardiogram done on 04/30/2018 showed EF of 50% with moderate mitral regurgitation. Plan: ? Will hold patient's home furosemide given suspected SBO ? Strict ins and outs and daily weights ? Echocardiogram 03/11 showed negative bubble study, EF 55%, severely increased left atrial volume, aortic valve sclerosis without stenosis, mild mitral regurgitation, mild aortic regurgitation, mild tricuspid regurgitation, no thrombi. #Primary Hypertension Patient has a history of hypertension. Patient takes benazepril 40 mg daily and clonidine 0.2 mg 3 times daily at home. Plan: - Will hold patient's home antihypertensives of benazepril, clonidine, furosemide - Will monitor blood pressure closely - Metoprolol XL 50mg daily #Vitamin B12 deficiency Patient was noted to have B12 of 94 on 03/06. - B12 1,000 mcg injection, repeat B12 03/14 noted to be 1484. #Vitamin B1 deficiency Patient noted to have vitamin B1 of 6 as measured on 03/11. Might potentially be contributing to episodes of AMS in the patient. Patient does have a history of frequent alcohol consumption. - Thiamine supplement 100 mg daily DVT Prophylaxis: N/A GI Prophylaxis: Protonix Bowel: N/A Diet: Cardiac Justin: N/A Lines: Peripheral IV Antibiotics: N/A Code Status: FULL Reason for Hospitalization: GI bleed Other Barriers to Discharge: Labile H&H, suspected small intestine bleeding Patient plan of care was discussed with attending physician Dr. Spaulding and senior resident Dr. Kelly (PGY-2) Jhon Levine DO Internal Medicine PGY-1 Attending Provider Attestation/Addendum I attest that I was physically present for the evaluation, physical examination, lab and imaging review of the patient with the residents. I discussed the case with the residents and agree with the findings and plans of care as documented above. At bedside today, is feeling well and denies any new complaints. But as per patient's nurse, he had a large bloody bowel movement this morning. He had a hemoglobin of 6.7 overnight and received 1 unit of PRBC. Hemoglobin improved to 7.4 after transfusion but again decreased down to 7.2, another unit was transfused. Vital signs are stable. Kidney function is stable with BUN/creatinine of 16/1.6 today. Aurelia Spaulding MD
[2025-03-21] MEDS: METOPROLOL SUCCINATE XL 25 MG TABCR 50 MG PO (08:15)
[2025-03-21] MEDS: AMIODARONE HCL 200 MG TABLET PO ×2 (08:15→20:28)
[2025-03-21] MEDS: THIAMINE 100 MG TABLET PO (08:16)
--- NOTE | 2025-03-21 09:11 | PC.CC ---
Addendum entered by Daylin Healy RN 03/21/25 19:43: 1942: Spoke to Dr. Kim, informed him of [facility] decision. No further order received. Transfer nurse to follow up in the morning. Addendum entered by Daylin Healy RN 03/21/25 19:40: 1936: received call from cEtor hummel/ [facility] tc. Dr. Arnulfo Wells declined pt. His recs: pursue upper endoscopy and continue medical managment. No need for transfer. Addendum entered by Daylin Healy RN 03/21/25 17:38: 1735: nuc med report faxed to [facility]. Addendum entered by Daylin Healy RN 03/21/25 17:02: 1700: spoke to Adam with [facility], he stated they are still waiting for their radiology department to push the images I sent earlier and that the medicine team is reviewing the case. 1400: per Dr. Spaulding, a hospitalist with [facility] called him for peer to peer. Per Dr. Spaulding, hospitalist to reach out to gi. Addendum entered by Daylin Healy RN 03/21/25 11:33: uploaded images via [employer] link. [facility] TC confirmed receipt and will send off for review. Original Note: received transfer request for GI for small intestine bleed workup. Called [facility], per Summer no GI service for small bowel. Sent clinicals to [facility], transfer request initiated. [facility] link to be sent.
[2025-03-21 09:51] LABS: Hematocrit 25.0 % (41.0-53.0)
[2025-03-21 09:54] LABS: Hemoglobin 8.3 g/dL (13.5-16.0)
--- NOTE | 2025-03-21 16:27 | PC.SS ---
Rounding Note: Possible transfer to [facility]. Facility is reviewing packet.
[2025-03-21] MEDS: SIMETHICONE 80 MG CHEW PO (18:28)
[2025-03-21 19:01] LABS: Hematocrit 22.6 % (41.0-53.0)
[2025-03-21 19:02] LABS: Hemoglobin 7.4 g/dL (13.5-16.0)
--- NOTE | 2025-03-21 19:31 | PC.NURSE ---
Dr. Davis notified via phone of repeat h/h value of 7.4/22.6. Patient has no symptoms of SOB, denies chest pain, no distress. No new orders received at this time. Plan of care ongoing.
--- NOTE | 2025-03-21 20:12 | PD.IMPROG ---
Documentation for date of: 03/21/25 Subjective Subjective Interval history: Patient evaluated Hemoglobin hematocrit 6.7 and 20.8 Significant drop requiring blood transfusion and dropped again patient having bloody bowel movements Exam Vital Signs Temp Pulse Resp BP Pulse Ox O2 Del Method O2 Flow Rate 99 F 64 21 H 135/87 H 98 Nasal Cannula 2 03/21/25 16:00 03/21/25 16:00 03/21/25 16:00 03/21/25 16:00 03/21/25 16:00 03/21/25 16:00 03/21/25 16:00 Objective Labs 03/21/25 18:29 03/21/25 03:24 Labs: Laboratory Results - last 24 hr 03/18/25 03/20/25 03/21/25 16:47 21:30 02:10 WBC RBC Hgb 6.7 L* 7.4 L Hct 20.9 L* 21.6 L* MCV MCH MCHC RDW Std Deviation Plt Count Neut % (Auto) Lymph % (Auto) [place] % (Auto) Eos % (Auto) Baso % (Auto) Neut # (Auto) Lymph # (Auto) [place] # (Auto) Eos # (Auto) Baso # (Auto) Immature Gran # (Auto) Absolute Nucleated RBC Immature Gran % Nucleated RBC % Sodium Potassium Chloride Carbon Dioxide Anion Gap BUN Creatinine Estim Creat Clear Calc eGFR BUN/Creatinine Ratio Glucose Calculated Osmolality Calcium Corrected Calcium Phosphorus Magnesium Albumin Blood Type O Positive Antibody Screen NEGATIVE Crossmatch See Detail Blood Bank Wristband ID Yes 03/21/25 03/21/25 03/21/25 03:24 09:30 18:29 WBC 13.2 H RBC 2.36 L Hgb 7.2 L 8.3 L 7.4 L Hct 22.3 L 25.0 L 22.6 L MCV 95 MCH 30.5 MCHC 32.3 RDW Std Deviation 64.2 H Plt Count 268 Neut % (Auto) 83 H Lymph % (Auto) 7 L [place] % (Auto) 7 Eos % (Auto) 2 Baso % (Auto) 1 Neut # (Auto) 11.0 H Lymph # (Auto) 0.9 L [place] # (Auto) 0.9 H Eos # (Auto) 0.2 Baso # (Auto) 0.1 Immature Gran # (Auto) 0.17 H Absolute Nucleated RBC 0.00 Immature Gran % 1 H Nucleated RBC % 0 Sodium 141 Potassium 4.3 Chloride 111 H Carbon Dioxide 22.1 Anion Gap 8 BUN 16 Creatinine 1.6 H Estim Creat Clear Calc 40.4 L eGFR 43 L BUN/Creatinine Ratio 10 L Glucose 196 H D Calculated Osmolality 287 Calcium 7.8 L Corrected Calcium 9.0 Phosphorus 4.1 Magnesium 2.1 Albumin 2.5 L Blood Type O Positive Antibody Screen NEGATIVE Crossmatch See Detail Blood Bank Wristband ID Yes Impressions Impression: Small GI bleed most likely from AVMs Placed a call to [facility] waiting for the response and possible transfer by a.[email or web address] tomorrow ABG Interpretation ABG results: 03/05/25 03/09/25 03/12/25 13:17 23:55 15:20 ABG pH 7.45 7.46 H ABG pCO2 27 L 36 ABG pO2 122 H 88 D ABG HCO3 18 L 25 ABG O2 Saturation 100 H 99 H ABG Base Excess -5 L 1 VBG pH 7.39 VBG pCO2 36 VBG pO2 31 VBG Base Excess -3 03/12/25 15:53 ABG pH ABG pCO2 ABG pO2 ABG HCO3 ABG O2 Saturation ABG Base Excess VBG pH 7.49 VBG pCO2 34 L VBG pO2 94 H VBG Base Excess 2 Assessment & Plan A&P Narrative metoprolol increased to 50 BID HR 98 afib on xarelto Time Spent With Patient Time: Total time spent is greater than 50% in coordination of care (as documented) at patient's floor/unit and/or counseling patient:
[2025-03-21] MEDS: ATORVASTATIN CALCIUM 20 MG TABLET 40 MG PO (20:27)
--- NOTE | 2025-03-21 20:51 | PD.NEUROPROG ---
Documentation for date of: 03/21/25 Subjective Subjective Interval history: Patient was seen in Telemetry today, continue to complain of abdominal pain, colicky in nature and blood in the stool. Exam - Neurology Vital Signs Temp Pulse Resp BP Pulse Ox O2 Del Method O2 Flow Rate 99 F 91 21 H 128/69 98 Nasal Cannula 2 03/21/25 16:00 03/21/25 20:28 03/21/25 16:00 03/21/25 20:28 03/21/25 16:00 03/21/25 16:00 03/21/25 16:00 Narrative Exam GENERAL APPEARANCE: Well hydrated, well-nourished in no acute distress. HEENT: Normocephalic, atraumatic, extraocular movements intact. Pupils: Equal reacting to light NECK: Supple, no JVD or bruits. CARDIOVASULAR: Heart: S1, S2 heard, regular without S3-S4 or murmur no rubs or gallops. LUNGS/CHEST: Clear to auscultation bilaterally. No rails, rhonchi, or wheezing. Normal inspection. ABDOMEN: nontender, with normal bowel sounds, S/P laparotomy EXTREMITIES: Normal inspection and palpation. No edema, clubbing or cyanosis. SKIN: Warm and dry without rashes. Normal inspection. MUSCULOSKELETAL: No cervical, thoracic, lumbar or midline bony tenderness. Normal inspection. NEURO: Alert, awake and oriented x3. Cranial nerves: II through XII grossly intact. Speech and language: Normal with no dysarthria or dysphasia. Motor system: Tone and bulk: Normal: Strength: 5 out of 5 in all 4 extremities; No pronator drift noted. Deep tendon reflexes: 2+ bilaterally symmetrical. Plantar reflex: Downgoing bilaterally. Sensory system: Intact to pinprick sensation bilaterally. Coordination: Intact to sxrnow-[id number]-[id number] and cojd-vlxo-tcwz test bilaterally. No ataxia, no dysmetria, or dysdiadochokinesia noted. No intention tremors noted. Gait: not tested. No signs of meningeal irritation noted. PSYCHIATRIC: Normal mood and affect. Objective Labs 03/22/25 04:49 03/22/25 04:49 Labs: Laboratory Results - last 24 hr 03/18/25 03/20/25 03/21/25 16:47 21:30 02:10 WBC RBC Hgb 6.7 L* 7.4 L Hct 20.9 L* 21.6 L* MCV MCH MCHC RDW Std Deviation Plt Count Neut % (Auto) Lymph % (Auto) Bacon % (Auto) Eos % (Auto) Baso % (Auto) Neut # (Auto) Lymph # (Auto) Bacon # (Auto) Eos # (Auto) Baso # (Auto) Immature Gran # (Auto) Absolute Nucleated RBC Immature Gran % Nucleated RBC % Sodium Potassium Chloride Carbon Dioxide Anion Gap BUN Creatinine Estim Creat Clear Calc eGFR BUN/Creatinine Ratio Glucose Calculated Osmolality Calcium Corrected Calcium Phosphorus Magnesium Albumin Blood Type O Positive Antibody Screen NEGATIVE Crossmatch See Detail Blood Bank Wristband ID Yes 03/21/25 03/21/25 03/21/25 03:24 09:30 18:29 WBC 13.2 H RBC 2.36 L Hgb 7.2 L 8.3 L 7.4 L Hct 22.3 L 25.0 L 22.6 L MCV 95 MCH 30.5 MCHC 32.3 RDW Std Deviation 64.2 H Plt Count 268 Neut % (Auto) 83 H Lymph % (Auto) 7 L Bacon % (Auto) 7 Eos % (Auto) 2 Baso % (Auto) 1 Neut # (Auto) 11.0 H Lymph # (Auto) 0.9 L Bacon # (Auto) 0.9 H Eos # (Auto) 0.2 Baso # (Auto) 0.1 Immature Gran # (Auto) 0.17 H Absolute Nucleated RBC 0.00 Immature Gran % 1 H Nucleated RBC % 0 Sodium 141 Potassium 4.3 Chloride 111 H Carbon Dioxide 22.1 Anion Gap 8 BUN 16 Creatinine 1.6 H Estim Creat Clear Calc 40.4 L eGFR 43 L BUN/Creatinine Ratio 10 L Glucose 196 H D Calculated Osmolality 287 Calcium 7.8 L Corrected Calcium 9.0 Phosphorus 4.1 Magnesium 2.1 Albumin 2.5 L Blood Type O Positive Antibody Screen NEGATIVE Crossmatch See Detail Blood Bank Wristband ID Yes ABG Interpretation ABG results: 03/05/25 03/09/25 03/12/25 13:17 23:55 15:20 ABG pH 7.45 7.46 H ABG pCO2 27 L 36 ABG pO2 122 H 88 D ABG HCO3 18 L 25 ABG O2 Saturation 100 H 99 H ABG Base Excess -5 L 1 VBG pH 7.39 VBG pCO2 36 VBG pO2 31 VBG Base Excess -3 08/16/25 15:53 ABG pH ABG pCO2 ABG pO2 ABG HCO3 ABG O2 Saturation ABG Base Excess VBG pH 7.49 VBG pCO2 34 L VBG pO2 94 H VBG Base Excess 2 Assessment & Plan Assessment and plan (1) Atrial fibrillation: Status: Chronic (2) Altered mental status: Status: Acute (3) Severe anemia: Status: Acute (4) GI (gastrointestinal bleed): Status: Acute (5) Acute kidney injury: Status: Acute Additional Assessment & Plan Additional Plan: 1) Cerebrovascular accident: Status: Acute Assessment and plan: Secondary to cardioembolic phenomena from atrial fibrillation Continue to hold on Xarelto because of severe GI bleeding (2) Atrial fibrillation: Status: Chronic Assessment and plan: Continue with rate control (3) Hypertension: Status: Chronic Assessment and plan: Continue with current blood pressure medications (4) Severe anemia: Status: Acute Assessment and plan: continue to monitor hemoglobin and hematocrit closely and consider blood transfusion as needed 5) GI bleeding: Suspect small intestinal pathology, waiting for transfer
--- NOTE | 2025-03-21 21:40 | PC.NURSE ---
Received call from Dr. Bauer, stated pt was accepted at [facility] by GI specialist Dr. Du.
--- NOTE | 2025-03-21 21:55 | PC.NURSE ---
Called [facility] Transfer [facility] regarding acceptance, spoke to Hannah, states they are not aware of pt being accepted. Hannah made aware GI specialist Dr. Du is accepting pt. Per Hannah she will present to the hospital team will let us know in am if pt accepted at [facility]. Requested to have facesheet, H&P, last progress noted, imaging, procedures, and latest labs to be faxed to [phone].
[2025-03-22] VITALS (27 sets, daily range): BP systolic 127–163; BP diastolic 74–105; PULSE 76–114; RESP 18–99; TEMP 36.3–40.5; O2SAT 93–100; BMI 26.5
[2025-03-22] MEDS: IPRATROPIUM RT 0.5 MG/ 2.5 ML NEBU INH ×3 (06:27→21:43)
[2025-03-22] MEDS: LEVALBUTEROL RT 1.25 MG/0.5 ML NEBU INH ×3 (06:27→21:43)
[2025-03-22 06:29] LABS: Basophils # (Auto) 0.1 Thou/mm3 (0.0-0.2); Basophils % (Auto) 1 % (0-2.5); Eosinophils # (Auto) 0.1 Thou/mm3 (0.0-0.5); Eosinophils % (Auto) 1 % (0-10); Hematocrit 22.8 % (41.0-53.0); Immature Granulocytes Auto 0.09 Thou/mm3 (0.00-0.00); Lymphocytes # (Auto) 0.9 Thou/mm3 (1.0-4.8); Lymphocytes % (Auto) 9 % (10-50); Mean Corpuscular HGB Conc 32.0 g/dl (31.0-37.0); Mean Corpuscular Hemoglobin 29.9 pg (25.0-35.0); Mean Corpuscular Volume 93 fL (80-100); Monocytes # (Auto) 0.8 Thou/mm3 (0.0-0.8); Monocytes % (Auto) 7 % (0-12); Neutrophils # (Auto) 8.7 Thou/mm3 (1.8-7.7); Neutrophils % (Auto) 82 % (37-80); Nucleated Red Blood Cell # 0.00 Thou/mm3 (0.00-0.00); Nucleated Red Blood Cell % 0 /100 WBC (0); Platelet Count 293 Thou/mm3 (140-440); RDW Standard Deviation 62.4 fL (35.1-43.9); Red Blood Count 2.44 Miln/mm3 (4.50-5.90); White Blood Count 10.6 Thou/mm3 (3.8-10.6)
[2025-03-22 06:30] LABS: Hemoglobin 7.3 g/dL (13.5-16.0)
[2025-03-22 06:42] LABS: Albumin, Serum 2.6 gm/dL (3.4-4.8); Anion Gap 10 (7-16); BUN/Creatinine Ratio 10 Ratio (12-20); Blood Urea Nitrogen 16 mg/dL (9-23); Calcium 8.2 mg/dL (8.3-10.6); Calcium (Corrected) 9.3 mg/dL (8.5-10.1); Carbon Dioxide 23.2 mMol/L (20.0-31.0); Chloride 109 mMol/L (98-107); Creatinine (Component) 1.6 mg/dL (0.6-1.3); Estimated Creatinine Clearance 40.4 mL/min (>60); Glucose 112 mg/dL (74-106); Magnesium 1.7 mg/dL (1.6-2.6); Osmolality,Calculated 285 (275-295); Phosphorous 4.1 mg/dL (2.4-5.1); Potassium 4.6 mMol/L (3.4-5.1); Sodium 142 mMol/L (136-145); eGFR 43 See Note
--- NOTE | 2025-03-22 07:24 | PC.CC ---
Addendum entered by Daylin Healy RN 03/22/25 18:33: 1835: prelim dc summary faxed to [facility] as requested by Niko. Addendum entered by Daylin Healy RN 03/22/25 17:59: 1618: received call from Niko hummel/ [employer]. He provided the bed control contact # for [facility] [phone] Addendum entered by Daylin Healy RN 03/22/25 16:01: 1524: signed TBA faxed back to [facility] 1313: received call from Niko hummel/ [employer]. Pt has been accepted by Dr. Victor Manuel Richard (medicine) to the [facility]. Bed is pending. Addendum entered by Daylin Healy RN 03/22/25 08:53: 0853: Anneliese hummel/ [employer] called back and stated that she will now present the case to the medicine team. Pt is needing a double balloon EUS. She will call me back with a determination 0845: clinicals sent to [facility]. transfer request initiated with Timmy in the transfer center. He will send Sunitha link. Addendum entered by Daylin Healy RN 03/22/25 08:49: 0744: spoke to Dr. Winters, informed her at this time that [facility] has declined the patient. She stated she will follow up with Dr. Bauer. Original Note: called [facility] transfer center, spoke to Anneliese. Medicine team is at 113% capacity. GI is not an admitting group. Pt is declined d/t capacity.
--- NOTE | 2025-03-22 07:31 | ESDS_ITS ---
Planned Discharge Date 03/22/25 DS: Providers Provider Date of admission: 03/05/25 15:28 Primary care physician: Carrie Barakat MD Admitting Provider: Nathan Ross MD Attending Provider on Admission: Aurelia Spaulding MD Consults: 03/05/25 13:06 Consult to Neurology / Tele-Neurology Routine Comment: Consulting Provider: [facility] 03/05/25 14:37 Consult to Gastroenterology Stat Comment: Consulting Provider: Maritza Bauer 03/05/25 15:34 Referral Physical Therapy Routine Comment: Physician Instructions: Referral Speech Therapy Routine Comment: 03/07/25 10:06 Consult to General Surgery Stat Comment: AVM, GI Consulting Provider: Ni Garcia 03/10/25 13:52 Consult to Neurology / Tele-Neurology Stat Comment: Confusion Consulting Provider: Irvin Li 03/11/25 08:40 Consult to Infectious Diseases Stat Comment: fevers Consulting Provider: Osito Zapien 03/11/25 10:10 Consult to Cardiology Routine Comment: Afib and CHF Consulting Provider: Jose Colon 03/12/25 11:01 Consult to General Surgery Stat Comment: SBO Consulting Provider: Kwesi Acharya 03/13/25 11:32 Referral Wound Care Routine Comment: 03/13/25 12:36 Referral Speech Therapy Urgent Comment: 03/21/25 07:56 Referral - Wildlife Technician Stat Service Needed for Transfer: Gastroenterology Addl Comments:: Transfer for small intestine bleed workup Attending Provider on DC: Aurelia Spaulding MD Discharging Provider: RESIDENT Dev Anticipated date of discharge: 03/22/25 DS: Diagnosis Problem List Completed Was Problem List Reviewed/Reconciled?: Yes Hospital Course Hospital Course Hospital course: Reason for hospitalization:?GI bleed Summary: This patient is an 79-year-old male with a history of atrial fibrillation on Xarelto, hypertension, and polymyalgia rheumatica on Humira who presented to [facility] ED on 03/05 for generalized weakness, AMS, and inability to walk. In the ED, patient was found to have hemoglobin of 5.7 and was admitted for GI bleed workup. Prior to coming to ED, patient was having dark tarry stools over the past 2 to 3 weeks, however did not notice any increased fatigue until the morning of 03/05. Pt was transfused 2 units pRBC and held patient's home Xarelto. GI was consulted for GI bleed workup, and EGD was performed on 03/06, which showed 2 bleeding angiodysplastic lesions in the stomach, one treated with bipolar cautery and the other had a clip placed. However, on 03/07 in the morning, routine lab showed hemoglobin of 5.5, which prompted another transfusion of 2 units of pRBC. Due to concerns of further bleeding, a follow- up EGD was performed on 03/07, which showed no further bleeding in the stomach. At this point, there was concern for bleeding in the colon, prompting a colonoscopy which was performed on 03/09, which found multiple bleeding colonic angiodysplastic lesions along the proximal ascending colon, which was treated with argon plasma coagulation. Of note, on 03/08, the patient was noted to have episodes of fever, tachycardia, hypertension, and altered mental status, stroke alert was called, neurology was consulted. CT of head was negative for acute hemorrage and mass affect. Pt's mentation imporved with the neurology visit therefore the neurologist did not recommend MRI at that time.These episodes would come and go in a waxing and waning pattern for about a week. Due to the presentation and negative imaging, non-focal deficits, and waxing and waning presentation, MRI brain was not pursued until 03/11 after exhaustive search for metabolic and infectious causes for these episodes, including ID consultation. The MRI brain showed multiple tiny embolic type acute infarcts in the frontal and parietal lobes, posterior left temporal lobe, and basal ganglia. On 03/12, general surgery was consulted for abdominal distention with pain, and possible small bowel obstruction, however it was noted on the x-ray after NG tube placement that the patient had free air under the diaphragm. The patient was taken for surgery on the same day for an exploratory laparotomy, which found perforation of the cecum and localized peritonitis. The patient had resection of the cecum with an ascending colon and ileal ascending colostomy. Incision site was closed except further the midpoint which was left open at the time to prevent infection and allow for drainage if infection were to develop. The patient tolerated the procedure without complication and had a mostly uncomplicated course of recovery except for some minor bleeding at the surgical site, which led to closure of the remaining surgical site on 03/17. Xarelto was resumed on 03/17 as the patient had no overt signs of new GI bleed and was tolerating the surgical site closure well. However, it was noted that the patient's hemoglobin had been slowly creeping down since 03/13, which prompted the medicine team to repeat H&H on 03/18 in the afternoon, which showed a hemoglobin of 6.9. As a result, the patient received a unit of blood on 03/18 and Xarelto was held. The patient remained asymptomatic, but did start dev eloping dark tarry stools on 03/19 in the evening and continued to consistently have dark, tarry stools with some red blood and blood clots afterwards. Due to concern for further bleeding, the patient received another unit of PRBC on 03/19, 03/20, 03/21, and 03/22 (with FFP and platelets transfused on 03/22) as the patient was unable to maintain his hemoglobin. EGD performed on 03/20 showed no further bleeding in the stomach, and colonoscopy was deferred as the patient had a recent cecal resection. At this point, the evidence points to a small intestine bleed, likely angiodysplastic as the bleeding was in his stomach and colon, and requires higher level of care for management as the patient has having an active bleed that cannot be stabilized at this facility. Patient is s/p 11 pRBCs transfusions during his hospital stay, 1 bag of FFP and 1 bag of Platelets. Patient is requiring also daily transfusions. Patient is requiring a transfer to higher level tertiary center for possible investigation and intervention of possible small intestinal bleed that cannot be investigated here. PRBC transfusion dates: 03/05, 03/05, 03/07, 03/07, 03/12, 03/13, 03/18, 03/19, 03/20, 03/21. 03/22 FFP & platelet transfusion date: 03/22 EGD dates: 03/06, 03/07, 03/20 Colonoscopy: 03/09 Cecum resection: 03/12 Surgical site closure: 03/17 Hospital Diagnoses: #Suspected small intestine GI bleed #Angiodysplasias of GI tract #Upper and lower GI bleed #Symptomatic anemia #VANNA on CKD, likely prerenal #Bowel perforation, serosal tear, cecum #Status post cecum resection 03/12/2025 #Pneumoperitoneum #Bowel perforation #DVT ruled out #Acute encephalopathy, likely multifactorial #Ischemic CVA, embolic (frontal lobe, parietal lobe, basal ganglia, posterior left temporal lobe) #Transient aphasia #A-fib with RVR, on Xarelto #HFpEF (EF 55% 2024) #Primary hypertension #Vitamin B12 deficiency #Vitamin B1 deficiency Patient plan of care was discussed with attending physician Dr. Chelly Levine, PGY-1 Status at Discharge Overall status at discharge: patient is not back to baseline Time Spent with Patient Time attestation: Total time spent providing and/or coordinating discharge services: 38 min Time spent: Greater than 30 minutes Exam Vital Signs Temp Pulse Resp BP Pulse Ox O2 Del Method O2 Flow Rate 97.5 F 98 19 138/88 H 100 Nasal Cannula 2 03/22/25 04:00 03/22/25 06:29 03/22/25 06:29 03/22/25 04:00 03/22/25 06:29 03/22/25 04:00 03/22/25 04:00 Narrative Exam Physical Exam: General: Alert, no acute distress. Skin: Warm, intact, no obvious rash. Head: Normocephalic, atraumatic. Eye: Normal conjunctiva, PERRL. Cardiovascular: Regular rate and irregular rhythm, soft systolic murmur best heard over tricuspid/mitral region, +S1/S2. Respiratory: Lungs are clear to auscultation, respirations unlabored, no crackles, no wheezing. Gastrointestinal: Soft, nontender, non-distended. No guarding or rebound tenderness. Extremities: 1+ BLE edema, no cyanosis, no clubbing. Left arm and right arm dark discoloring present, non-tender. Right knee warm to touch and tender to palpation. Neuro: No focal deficits observed. Conversant, moving all extremities. No overt cerebellar signs/incoordination. Discharge Plan Plan Patient Disposition: Xfer Other Facility Pt Being Transferred to: [facility] Disposition Comment: [facility] [place] Patient condition on transfer: Stable Prescriptions/Referrals Prescriptions/Med Rec: No Action clonidine HCl 0.2 mg Tablet 0.2 mg PO TID benazepril 40 mg Tablet 40 mg PO QDAY Xarelto 15 mg Tablet 15 mg PO QDAY atorvastatin 40 mg tablet 40 mg PO HS Qty: 30 0RF digoxin 125 mcg (0.125 mg) tablet 0.125 mg PO QDAY Patient Comments: TAKE 1 TABLET BY MOUTH EVERY DAY furosemide 20 mg tablet 20 mg PO QDAY Patient Comments: TAKE 1 TABLET BY MOUTH EVERY DAY Referrals: Carrie Barakat MD [Primary Care Provider] - Patient/Caregiver Discharge Instructions Print Language: Slovenian Stand Alone Forms: Dede Award Info., Patient Portal Info Letter Quality Discharge Quality Measures VTE prophylaxis Attestestation Attestation I attest that I was physically present for the evaluation, physical examination, lab and imaging review of the patient with the residents. I discussed the case with the residents and agree with the findings and plans of care as documented above. At bedside today, patient complaints of pain around his right knee and left arm. Continues to have some swelling of left arm. He also mentions that he usually have similar symptoms during polymyalgia rheumatica flare. Patient has a long and complicate hospital course. He has undergone total of 3 EGDs, was found to have actively bleeding angiodysplasia which was treated with cautery and endoclip. He also underwent colonoscopy and was found to have multiple bleeding angiodysplastic lesions which were also coagulated. He had also undergone exploratory laparotomy with resection of ceacum along with ascending colon and ileal ascending colostomy due to perforated caecum and localized peritonitis. He developed multiple embolic stroke likely secondary to afib as anticoagulation had to be held due to GI bleeding and abdominal procedures. Following the closur e of the abdominal surgical wound, attemp was made to resueme his xeralto. But patient started having low hemoglobin along with bloody bowel movement. The last EGD done on 03/20/2025 did not show active bleeding. This morning patient noted to have decrease in hemoglobin from 8.3 post transfusion yesterday to 7.2. We will transfuse him with 1unit PRBC, 1FFP and 1 Platelets. This will be his 11th unit of PRBC. With the latest EGD finding the bleeding source appears to be either small bowel or lower bowel. With the Colonoscopy and lower GI intervention, suspician remains high for small bowel bleed. Discussed with GI, patient has been started on transfer process to [facility] for evaluation and treatment for possible small bowel bleeding. Started on Prednisone for Polymyalgia Rheumatica flare. We will also obtain ESR for AM. Aurelia Spaulding MD
--- NOTE | 2025-03-22 08:10 | ESPR_ITS ---
Documentation for date of: 03/22/25 Subjective Subjective Interval history: Rate controlled A-fib Continue current medical management Small bowel currently being worked up Patient is being considered for transfer to a higher level of care Exam Vital Signs Temp Pulse Resp BP Pulse Ox O2 Del Method O2 Flow Rate 97.5 F 98 19 138/88 H 100 Nasal Cannula 2 03/22/25 04:00 03/22/25 06:29 03/22/25 06:29 03/22/25 04:00 03/22/25 06:29 03/22/25 04:00 03/22/25 04:00 Routine HEENT Exam Head: Present normocephalic and atraumatic Eye: Present EOMI and PERRL ENT: Present mucous membranes moist Routine Neck Exam Neck: Present supple and trachea midline Routine Respiratory Exam Respiratory: Present chest non-tender, lungs clear, normal breath sounds and no resp distress Routine Cardiovascular Exam Cardiovascular: Present RRR Routine Abdominal Exam Abdominal: Present soft and normoactive bowel sounds Routine Extremities Exam Extremities: Present full ROM Routine Skin Exam Skin: Present intact, dry and warm Routine Neurological Exam Neurological: Present alert, oriented X3 and CN II-XII intact Routine Psychiatric Exam Psychiatric: Present normal affect and normal thought process Objective Labs 03/22/25 04:49 03/22/25 04:49 Labs: Laboratory Results - last 24 hr 03/21/25 03/21/25 03/22/25 09:30 18:29 04:49 WBC 10.6 RBC 2.44 L Hgb 8.3 L 7.4 L 7.3 L Hct 25.0 L 22.6 L 22.8 L MCV 93 MCH 29.9 MCHC 32.0 RDW Std Deviation 62.4 H Plt Count 293 Neut % (Auto) 82 H Lymph % (Auto) 9 L Mccracken % (Auto) 7 Eos % (Auto) 1 Baso % (Auto) 1 Neut # (Auto) 8.7 H Lymph # (Auto) 0.9 L Mccracken # (Auto) 0.8 Eos # (Auto) 0.1 Baso # (Auto) 0.1 Immature Gran # (Auto) 0.09 H Absolute Nucleated RBC 0.00 Immature Gran % 1 H Nucleated RBC % 0 Sodium 142 Potassium 4.6 Chloride 109 H Carbon Dioxide 23.2 Anion Gap 10 BUN 16 Creatinine 1.6 H Estim Creat Clear Calc 40.4 L eGFR 43 L BUN/Creatinine Ratio 10 L Glucose 112 H D Calculated Osmolality 285 Calcium 8.2 L Corrected Calcium 9.3 Phosphorus 4.1 Magnesium 1.7 Albumin 2.6 L ABG Interpretation ABG results: 03/05/25 03/09/25 03/12/25 13:17 23:55 15:20 ABG pH 7.45 7.46 H ABG pCO2 27 L 36 ABG pO2 122 H 88 D ABG HCO3 18 L 25 ABG O2 Saturation 100 H 99 H ABG Base Excess -5 L 1 VBG pH 7.39 VBG pCO2 36 VBG pO2 31 VBG Base Excess -3 03/12/25 15:53 ABG pH ABG pCO2 ABG pO2 ABG HCO3 ABG O2 Saturation ABG Base Excess VBG pH 7.49 VBG pCO2 34 L VBG pO2 94 H VBG Base Excess 2 Assessment & Plan A&P Narrative metoprolol increased to 50 BID HR 98 afib Stable hemodynamics Time Spent With Patient Time: Total time spent is greater than 50% in coordination of care (as documented) at patient's floor/unit and/or counseling patient:
--- NOTE | 2025-03-22 08:15 | ESCONSULT_ITS ---
RE: BIN BARNETT : 1945 DATE OF CONSULTATION: 03/14/2025 REFERRING PHYSICIAN: Dr. Ross. REASON FOR CONSULTATION: Colonic perforation and altered mental status. HISTORY OF PRESENT ILLNESS: The patient is an 79-year-old man who comes to us from his own home. He is a poor historian and is very hard of hearing. He may have some dementia, but according to the family, his altered mental status is relatively acute. It might be from the small infarction noted on MRI as he has no focal deficits, that is possible, but some other workup will be done as a precaution. The primary team has ordered herpes simplex serologies. Sadly, those are often misleading and so I would probably not do them, but rather an LP would be useful if you really want to work him up for herpes. Sadly, only good serology is negative one as many of us had cold sores as children. If he has positive serology, it does not mean anything as many people have had prior herpes infections of the oropharynx and lip, which is common. PAST SURGICAL HISTORY: Includes distant back surgery and a prior exploratory laparotomy on 03/13 but no LP is noted. ALLERGIES: NONE NOTED. IMMUNIZATIONS: His last tetanus is not known. He does take flu shot every year. Has had 5 or 6 COVID vaccines and has not had pneumococcal vaccine to his 's knowledge. FAMILY HISTORY: Unremarkable. SOCIAL HISTORY: He lives with and is a nonsmoker. 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 PHYSICAL EXAMINATION: On exam, the patient has a benign abdomen. LAB DATA: Vancomycin and Zosyn is somewhat empiric and there is some VANNA with a creatinine of 1.8 noted. His white count is elevated up today, which is probably partly due to his perforation. PLAN: I am going to check a number of tests tomorrow morning and if they are positive, we need to work him up. Please note that if he has syphilis, that would be unusual, but possible. He is very hard of hearing so it was difficult to get any history out of him. In the meantime, rx will be provided. I will check on him again Friday p.m. DT: 09:55:43 TT: 11:43:00 Ref: [id number] - TID: [id number] [facility]
[2025-03-22] MEDS: METOPROLOL SUCCINATE XL 25 MG TABCR 50 MG PO (08:30)
[2025-03-22] MEDS: AMIODARONE HCL 200 MG TABLET PO ×2 (08:31→20:26)
[2025-03-22] MEDS: THIAMINE 100 MG TABLET PO (08:31)
[2025-03-22] MEDS: Magnesium Sulfate 4 GM Ivpb 4 GM/50 ML BAG IV (08:46)
[2025-03-22 09:45] LABS: Hematocrit 21.5 % (41.0-53.0); Hemoglobin 7.2 g/dL (13.5-16.0)
[2025-03-22] MEDS: HYDROcodone/APAP 5/325 TABLET 1 TAB PO (14:39)
[2025-03-22] MEDS: FUROSEMIDE INJ 10 MG/ML 4ML VIAL 20 MG IVP (14:41)
--- NOTE | 2025-03-22 14:52 | PC.SS ---
Rounding Note: Patient has been accepted to [facility]. Transport is pending.
[2025-03-22 17:58] LABS: Hematocrit 25.2 % (41.0-53.0)
[2025-03-22 18:06] LABS: Hemoglobin 8.3 g/dL (13.5-16.0)
[2025-03-22] MEDS: ACETAMINOPHEN 325 MG TABLET 650 MG PO (18:41)
--- NOTE | 2025-03-22 20:23 | ESPR_ITS ---
Documentation for date of: 03/22/25 Subjective Subjective Interval history: Patient evaluated Spoke with the transfer center at [facility] Spoke with Dr. Du Director of endoscopy at the [facility] on a regular Patient accepted Waiting for the bed Met with the family Patient was given PRBC platelets and FFP And it would be difficult for the bed to come by we will keep pushing it at least she is excepted Exam Vital Signs Temp Pulse Resp BP Pulse Ox O2 Del Method O2 Flow Rate 105 F H 114 H 28 H 137/90 H 94 L Nasal Cannula 5 03/22/25 18:41 03/22/25 18:34 03/22/25 18:34 03/22/25 18:34 03/22/25 18:34 03/22/25 16:00 03/22/25 18:34 Objective Labs 03/22/25 17:00 03/22/25 04:49 Labs: Laboratory Results - last 24 hr 03/21/25 03/22/25 03/22/25 03:24 04:49 09:26 WBC 10.6 RBC 2.44 L Hgb 7.3 L 7.2 L Hct 22.8 L 21.5 L* MCV 93 MCH 29.9 MCHC 32.0 RDW Std Deviation 62.4 H Plt Count 293 Neut % (Auto) 82 H Lymph % (Auto) 9 L [place] % (Auto) 7 Eos % (Auto) 1 Baso % (Auto) 1 Neut # (Auto) 8.7 H Lymph # (Auto) 0.9 L [place] # (Auto) 0.8 Eos # (Auto) 0.1 Baso # (Auto) 0.1 Immature Gran # (Auto) 0.09 H Absolute Nucleated RBC 0.00 Immature Gran % 1 H Nucleated RBC % 0 Sodium 142 Potassium 4.6 Chloride 109 H Carbon Dioxide 23.2 Anion Gap 10 BUN 16 Creatinine 1.6 H Estim Creat Clear Calc 40.4 L eGFR 43 L BUN/Creatinine Ratio 10 L Glucose 112 H D Calculated Osmolality 285 Calcium 8.2 L Corrected Calcium 9.3 Phosphorus 4.1 Magnesium 1.7 Albumin 2.6 L Blood Type O Positive Antibody Screen NEGATIVE Crossmatch See Detail Blood Bank Wristband ID Yes Blood Bank Comment FFP Ready 03/22/25 17:00 WBC RBC Hgb 8.3 L Hct 25.2 L MCV MCH MCHC RDW Std Deviation Plt Count Neut % (Auto) Lymph % (Auto) Charles % (Auto) Eos % (Auto) Baso % (Auto) Neut # (Auto) Lymph # (Auto) Charles # (Auto) Eos # (Auto) Baso # (Auto) Immature Gran # (Auto) Absolute Nucleated RBC Immature Gran % Nucleated RBC % Sodium Potassium Chloride Carbon Dioxide Anion Gap BUN Creatinine Estim Creat Clear Calc eGFR BUN/Creatinine Ratio Glucose Calculated Osmolality Calcium Corrected Calcium Phosphorus Magnesium Albumin Blood Type Antibody Screen Crossmatch Blood Bank Wristband ID Blood Bank Comment Impressions Impression: Small bowel bleed Acute posthemorrhagic anemia Patient getting transferred to higher level [facility] care at [facility] ABG Interpretation ABG results: 03/05/25 03/09/25 03/12/25 13:17 23:55 15:20 ABG pH 7.45 7.46 H ABG pCO2 27 L 36 ABG pO2 122 H 88 D ABG HCO3 18 L 25 ABG O2 Saturation 100 H 99 H ABG Base Excess -5 L 1 VBG pH 7.39 VBG pCO2 36 VBG pO2 31 VBG Base Excess -3 03/12/25 15:53 ABG pH ABG pCO2 ABG pO2 ABG HCO3 ABG O2 Saturation ABG Base Excess VBG pH 7.49 VBG pCO2 34 L VBG pO2 94 H VBG Base Excess 2 Assessment & Plan A&P Narrative metoprolol increased to 50 BID HR 98 afib Stable hemodynamics Time Spent With Patient Time: Total time spent is greater than 50% in coordination of care (as documented) at patient's floor/unit and/or counseling patient:
[2025-03-22] MEDS: ATORVASTATIN CALCIUM 20 MG TABLET 40 MG PO (20:25)
[2025-03-23] VITALS (13 sets, daily range): BP systolic 124–143; BP diastolic 76–96; PULSE 62–89; RESP 16–98; TEMP 36.1–36.6; O2SAT 94–99; BMI 26.5
--- NOTE | 2025-03-23 01:21 | PD.VPROG1 ---
Telemedicine visit statement This visit was conducted with the use of phone was obtained on 03/22/25. Documentation for date of: 03/22/25 Subjective Subjective Interval history: Patient is in telemetry, he got the transfusion this morning with a good response in the HGB from the recent lab check. Anticoagulation is on hold.No new symptoms reported. Virtual exam Vital Signs Temp Pulse Resp BP Pulse Ox O2 Del Method O2 Flow Rate 97.0 F 76 18 124/76 97 Room Air 2 03/23/25 00:00 03/23/25 00:00 03/23/25 00:00 03/23/25 00:00 03/23/25 00:00 03/23/25 00:00 03/22/25 21:45 Objective Labs 03/22/25 17:00 03/22/25 04:49 Labs: Laboratory Results - last 24 hr 03/21/25 03/22/25 03/22/25 03:24 04:49 09:26 WBC 10.6 RBC 2.44 L Hgb 7.3 L 7.2 L Hct 22.8 L 21.5 L* MCV 93 MCH 29.9 MCHC 32.0 RDW Std Deviation 62.4 H Plt Count 293 Neut % (Auto) 82 H Lymph % (Auto) 9 L [place] % (Auto) 7 Eos % (Auto) 1 Baso % (Auto) 1 Neut # (Auto) 8.7 H Lymph # (Auto) 0.9 L [place] # (Auto) 0.8 Eos # (Auto) 0.1 Baso # (Auto) 0.1 Immature Gran # (Auto) 0.09 H Absolute Nucleated RBC 0.00 Immature Gran % 1 H Nucleated RBC % 0 Sodium 142 Potassium 4.6 Chloride 109 H Carbon Dioxide 23.2 Anion Gap 10 BUN 16 Creatinine 1.6 H Estim Creat Clear Calc 40.4 L eGFR 43 L BUN/Creatinine Ratio 10 L Glucose 112 H D Calculated Osmolality 285 Calcium 8.2 L Corrected Calcium 9.3 Phosphorus 4.1 Magnesium 1.7 Albumin 2.6 L Blood Type O Positive Antibody Screen NEGATIVE Crossmatch See Detail Blood Bank Wristband ID Yes Blood Bank Comment FFP Ready 03/22/25 17:00 WBC RBC Hgb 8.3 L Hct 25.2 L MCV MCH MCHC RDW Std Deviation Plt Count Neut % (Auto) Lymph % (Auto) [place] % (Auto) Eos % (Auto) Baso % (Auto) Neut # (Auto) Lymph # (Auto) [place] # (Auto) Eos # (Auto) Baso # (Auto) Immature Gran # (Auto) Absolute Nucleated RBC Immature Gran % Nucleated RBC % Sodium Potassium Chloride Carbon Dioxide Anion Gap BUN Creatinine Estim Creat Clear Calc eGFR BUN/Creatinine Ratio Glucose Calculated Osmolality Calcium Corrected Calcium Phosphorus Magnesium Albumin Blood Type Antibody Screen Crossmatch Blood Bank Wristband ID Blood Bank Comment ABG Interpretation ABG results: 03/05/25 03/09/25 03/12/25 13:17 23:55 15:20 ABG pH 7.45 7.46 H ABG pCO2 27 L 36 ABG pO2 122 H 88 D ABG HCO3 18 L 25 ABG O2 Saturation 100 H 99 H ABG Base Excess -5 L 1 VBG pH 7.39 VBG pCO2 36 VBG pO2 31 VBG Base Excess -3 03/12/25 15:53 ABG pH ABG pCO2 ABG pO2 ABG HCO3 ABG O2 Saturation ABG Base Excess VBG pH 7.49 VBG pCO2 34 L VBG pO2 94 H VBG Base Excess 2 Assessment & Plan Problem List (1) Cerebrovascular accident: Status: Acute Assessment and plan: Secondary to cardioembolic phenomena from atrial fibrillation Could not continue with anticoagulation because of GI bleeding Continue with physical therapy and Occupational Therapy (2) Atrial fibrillation: Status: Chronic Assessment and plan: Continue with rate control (3) Hypertension: Status: Chronic Assessment and plan: Continue with current blood pressure medications (4) Severe anemia: Status: Acute Assessment and plan: Getting blood transfusion, continue to monitor hemoglobin and hematocrit closely. Got accepted and waiting for a bed at [facility] (5) GI (gastrointestinal bleed): Status: Acute Assessment and plan: Continue to hold anticoagulant therapy, check hemoglobin and hematocrit closely and transfuse accordingly
--- NOTE | 2025-03-23 01:45 | PC.NURSE ---
Dr Villareal made aware of pts O2 dropping to 70s while sleeping, but when he catches his breath O2 will go pack up to high 90s.
[2025-03-23 06:16] LABS: Basophils # (Auto) 0.0 Thou/mm3 (0.0-0.2); Basophils % (Auto) 0 % (0-2.5); Eosinophils # (Auto) 0.0 Thou/mm3 (0.0-0.5); Eosinophils % (Auto) 0 % (0-10); Hematocrit 25.9 % (41.0-53.0); Immature Granulocytes Auto 0.10 Thou/mm3 (0.00-0.00); Lymphocytes # (Auto) 0.6 Thou/mm3 (1.0-4.8); Lymphocytes % (Auto) 6 % (10-50); Mean Corpuscular HGB Conc 32.8 g/dl (31.0-37.0); Mean Corpuscular Hemoglobin 31.0 pg (25.0-35.0); Mean Corpuscular Volume 95 fL (80-100); Monocytes # (Auto) 0.6 Thou/mm3 (0.0-0.8); Monocytes % (Auto) 6 % (0-12); Neutrophils # (Auto) 9.9 Thou/mm3 (1.8-7.7); Neutrophils % (Auto) 88 % (37-80); Nucleated Red Blood Cell # 0.00 Thou/mm3 (0.00-0.00); Nucleated Red Blood Cell % 0 /100 WBC (0); Platelet Count 271 Thou/mm3 (140-440); RDW Standard Deviation 58.4 fL (35.1-43.9); Red Blood Count 2.74 Miln/mm3 (4.50-5.90); White Blood Count 11.3 Thou/mm3 (3.8-10.6)
[2025-03-23 06:22] LABS: Hemoglobin 8.5 g/dL (13.5-16.0)
[2025-03-23 06:28] LABS: Albumin, Serum 3.0 gm/dL (3.4-4.8); Anion Gap 8 (7-16); BUN/Creatinine Ratio 14 Ratio (12-20); Blood Urea Nitrogen 21 mg/dL (9-23); Calcium 8.6 mg/dL (8.3-10.6); Calcium (Corrected) 9.4 mg/dL (8.5-10.1); Carbon Dioxide 25.5 mMol/L (20.0-31.0); Chloride 108 mMol/L (98-107); Creatinine (Component) 1.5 mg/dL (0.6-1.3); Estimated Creatinine Clearance 43.1 mL/min (>60); Glucose 180 mg/dL (74-106); Magnesium 2.2 mg/dL (1.6-2.6); Osmolality,Calculated 289 (275-295); Phosphorous 5.3 mg/dL (2.4-5.1); Potassium 4.7 mMol/L (3.4-5.1); Sodium 141 mMol/L (136-145); eGFR 47 See Note
[2025-03-23] MEDS: LEVALBUTEROL RT 1.25 MG/0.5 ML NEBU INH ×3 (06:40→22:29)
[2025-03-23] MEDS: IPRATROPIUM RT 0.5 MG/ 2.5 ML NEBU INH ×3 (06:40→22:29)
[2025-03-23] MEDS: AMIODARONE HCL 200 MG TABLET PO ×2 (08:38→21:31)
[2025-03-23] MEDS: THIAMINE 100 MG TABLET PO (08:38)
[2025-03-23] MEDS: METOPROLOL SUCCINATE XL 25 MG TABCR 50 MG PO (08:38)
[2025-03-23 09:28] LABS: Sed Rate (ESR) 44 mm/hr (0-20)
--- NOTE | 2025-03-23 09:37 | PC.SS ---
Update: Patient has been accepted to [facility] for [facility] transfer. Pending bed availability.
--- NOTE | 2025-03-23 12:10 | PC.CM ---
Addendum entered by Juanita Powell RN 03/23/25 19:01: Patient accepted at [facility] pending open bed. The number to call to follow up on bed is to patient placement [phone]. Transfer packet x3 CDs created. Reach transfer packet created as well. Packets taken the Tele floor. Addendum entered by Daylin Healy RN 03/23/25 15:34: 1532: Shannan called for a clinical update. Update provided. She stated she is hoping to get him a single bed today. Since he is not ambulatory, a shared room is appropriate. Original Note: 1000 I reached out to [facility] patient placement [phone]. I spoke to Shannan transfer nurse. She states they are at high capacity at this time and they do not have any beds open. Shannan states she has our number and she will call when they have a bed available.
[2025-03-23] MEDS: FUROSEMIDE INJ 10 MG/ML 4ML VIAL 20 MG IVP (13:05)
--- NOTE | 2025-03-23 14:07 | ESPR_ITS ---
<Statement entered by Yara Winters MD - 03/23/25 18:41> Pt is seen at bedside, H-H is stable at above 8. Pt is alert, awake and holds a conversation. Pt endorses to significant improvement in pain of his acute PMR flare after starting prednisone 15mg PO. Pt also walked with PT today, pt had a small dark BM today, no hematochezia noted today. will continue to closely monitor while awaiting for transfer to [facility], pending bed availability. Patient was seen and examined by me personally. I have directly supervised and reviewed documentation by the team resident and agree with its findings. ------- Plan of care was discussed with the attending, Dr. Chelly Winters, PGY-2 Documentation for date of: 03/23/25 Subjective Subjective Interval history: Overnight events: No acute events overnight. Patient was seen and examined at bedside. AM vitals and labs reviewed. Patient continues to have good mentation. No complaints at this time. Patient's PMR flare seems to be well controlled with prednisone started yesterday. Pending transfer to [facility], has been accepted but waiting for open bed. Hemoglobin 8.5 and creatinine 1.5. ESR resulted as 44. Continue with prednisone 15 mg daily. Continue for 2-4 weeks from today, then decrease by 2.5 mg every 2-4 weeks until 10 mg daily. Afterwards, decrease by 1 mg every month unless symptoms flare up again. If no relapse, duration of treatment expected to take approximately one year. 1700 repeat H&H ordered. Lasix 20 mg one time dose ordered given transfusions and BLE swelling. Review of systems otherwise negative except for what is mentioned above. Exam Vital Signs Temp Pulse Resp BP Pulse Ox O2 Del Method O2 Flow Rate 97.3 F 77 22 H 141/80 H 98 Room Air 6 03/23/25 08:00 03/23/25 13:05 03/23/25 08:00 03/23/25 13:05 03/23/25 08:00 03/23/25 08:00 03/23/25 06:53 Narrative Exam Physical Exam: General: Alert, no acute distress. Skin: Warm, intact. Head: Normocephalic, atraumatic. Eye: Normal conjunctiva, PERRL. Cardiovascular: Regular rate and irregular rhythm, soft systolic murmur best heard over tricuspid/mitral region, +S1/S2. Respiratory: Lungs are clear to auscultation, respirations unlabored, no crackles, no wheezing. Gastrointestinal: Soft, nontender, non-distended. No guarding or rebound tenderness. Extremities: 1+ BLE edema, no cyanosis, no clubbing. Left arm and right arm dark discoloring present, non-tender. Neuro: No focal deficits observed. Conversant, moving all extremities. No overt cerebellar signs/incoordination. Objective Labs 03/24/25 04:50 03/24/25 04:50 Labs: Laboratory Results - last 24 hr 03/21/25 03/22/25 03/23/25 03:24 17:00 04:55 WBC 11.3 H RBC 2.74 L Hgb 8.3 L 8.5 L Hct 25.2 L 25.9 L MCV 95 MCH 31.0 MCHC 32.8 RDW Std Deviation 58.4 H Plt Count 271 Neut % (Auto) 88 H Lymph % (Auto) 6 L [place] % (Auto) 6 Eos % (Auto) 0 Baso % (Auto) 0 Neut # (Auto) 9.9 H Lymph # (Auto) 0.6 L [place] # (Auto) 0.6 Eos # (Auto) 0.0 Baso # (Auto) 0.0 Immature Gran # (Auto) 0.10 H Absolute Nucleated RBC 0.00 Immature Gran % 1 H Nucleated RBC % 0 ESR 44 H Sodium 141 Potassium 4.7 Chloride 108 H Carbon Dioxide 25.5 Anion Gap 8 BUN 21 Creatinine 1.5 H Estim Creat Clear Calc 43.1 L eGFR 47 L BUN/Creatinine Ratio 14 Glucose 180 H D Calculated Osmolality 289 Calcium 8.6 Corrected Calcium 9.4 Phosphorus 5.3 H Magnesium 2.2 Albumin 3.0 L Blood Type O Positive Antibody Screen NEGATIVE Crossmatch See Detail Blood Bank Wristband ID Yes Blood Bank Comment FFP Ready ABG Interpretation ABG results: 03/05/25 03/09/25 03/12/25 13:17 23:55 15:20 ABG pH 7.45 7.46 H ABG pCO2 27 L 36 ABG pO2 122 H 88 D ABG HCO3 18 L 25 ABG O2 Saturation 100 H 99 H ABG Base Excess -5 L 1 VBG pH 7.39 VBG pCO2 36 VBG pO2 31 VBG Base Excess -3 03/12/25 15:53 ABG pH ABG pCO2 ABG pO2 ABG HCO3 ABG O2 Saturation ABG Base Excess VBG pH 7.49 VBG pCO2 34 L VBG pO2 94 H VBG Base Excess 2 Quality Measures Quality Measures VTE prophylaxis Advance care planning discussed with:: patient and spouse Assessment & Plan Assessment Current Active Medications: Generic Name Dose Route Start Last Admin Trade Name Freq PRN Reason Stop Dose Admin Acetaminophen 650 mg 03/05/25 15:28 03/22/25 18:41 Acetaminophen 325 Mg Tablet PO 04/04/25 15:27 650 mg Q6H PRN Administration Fever >101.5 or pain (1-3) Hydrocodone Bitart/Acetaminophen 1 tab 03/22/25 14:29 Hydrocodone/Apap 5/325 Tablet PO 03/27/25 14:28 Q4HR PRN PAIN SCALE 4-10(Mod-Sev Amiodarone HCl 200 mg 03/14/25 21:30 03/23/25 08:38 Amiodarone Hcl 200 Mg Tablet PO 04/13/25 21:29 200 mg BID CLAUDE Administration Atorvastatin Calcium 40 mg 03/17/25 21:00 03/22/25 20:25 Atorvastatin Calcium 20 Mg Tablet PO 04/16/25 20:59 40 mg HS CLAUDE Administration Ipratropium [place] 0.5 mg 03/12/25 15:00 03/23/25 06:40 Ipratropium Rt 0.5 Mg/ 2.5 Ml Nebu INH 04/11/25 14:59 0.5 mg Q8HRRT CLAUDE Administration Labetalol HCl 10 mg 03/13/25 22:39 03/14/25 20:56 Labetalol Inj 5 Mg/Ml Vial 20 Ml IVP 04/12/25 09:59 10 mg Q4HR PRN Administration Sbp > 170 or DBP > 120 Levalbuterol HCl 1.25 mg 03/12/25 14:00 03/23/25 06:40 Levalbuterol Rt 1.25 Mg/0.5 Ml Nebu INH 04/11/25 13:59 1.25 mg Q8HR CLAUDE Administration Metoprolol Succinate 50 mg 03/19/25 09:00 03/23/25 08:38 Metoprolol Succinate Xl 25 Mg Tabcr PO 04/18/25 08:59 50 mg QDAY CLAUDE Administration Ondansetron HCl 4 mg 03/05/25 13:06 Ondansetron Inj 2 Mg/Ml Inj 2 Ml IVP 04/04/25 13:05 Q4HR PRN NAUSEA OR VOMITING Pantoprazole Sodium 40 mg 03/23/25 21:00 Pantoprazole 40 Mg Tablet PO 04/22/25 20:59 BID CLAUDE Protocol Pharmacy Consult 1 each 03/14/25 05:23 Pharmacy Renal Dose Adjustment 1 Ea XX 04/13/25 05:22 PRN PRN CONSULT Prednisone 15 mg 03/22/25 15:00 03/23/25 08:38 Prednisone 5 Mg Tablet PO 04/21/25 14:59 15 mg QDAY CLAUDE Administration Sodium Chloride 3 ml 03/12/25 10:45 03/16/25 14:14 Sodium Chloride Rt Aleena 0.9% 3 Ml Nebu INH 04/11/25 10:44 3 ml PRN PRN Administration SOLN Thiamine HCl 100 mg 03/17/25 13:00 03/23/25 08:38 Thiamine 100 Mg Tablet PO 04/16/25 12:59 100 mg QDAY CLAUDE Administration Plan Devan Rios is an 79M pmhx significant for A-fib on Xarelto, hypertension, RA, PMR, and CKDIIIa who presented to [facility] ED on 03/05 for generalized weakness and inability to walk, admitted for upper and lower GIB, course complicated by ischemic CVAs, AMS and bowel perforation requring emergent surgery. #Suspected small intestine GI bleed / #Angiodysplasias of GI tract #Upper GI bleed and lower GI bleed #Symptomatic anemia Patient was brought to ED due to generalized fatigue and difficulty waking on the morning of 03/05 with melena started 2-3 weeks ago. Admission H&H 12/01/16.2 s/p 2 prbc on 03/05 and 2 more pRBC on 03/07 with stabilization of H&H. Initial EGD showed angiodysplastic bleeding in gastric body and gastric fundus, requiring cautery and clipping. Repeat EGD 03/07, which showed no additional bleeding Colonoscopy planned for 03/08, delayed to 03/09, which showed moderate diverticulosis in sigmoid and descending colon, and multiple bleeding colonic angiodysplastic lesions that were treated with argon plasma coagulation Ddx for multiple angiodysplasias possibly secondary to subtherapeutic anticoagulation on Xarelto 15 mg instead of Xarelto 20 mg causing multiple emboli with possible embolisms to GI tract Plan: - GI consulted, recs appreciated - Patient to follow-up with Dr. Bauer, GI, and referral to perform capsule endoscopy - GI performed EGD 03/20, which did not show additional signs of bleeding in stomach - Hold Xarelto given active GI bleed - NM GI scan ordered, shows focal isotope accumulation in stomach, but given clear EGD recently, the true location of the bleeding is likely in the small bowel close to the stomach - Repeat H&H 1700 - Transfer process started to facility of higher level of care for suspected small intestine bleed given after a total of 10 units of pRBC transfused (dates: 03/05, 03/05, 03/07, 03/07, 03/12, 03/13, 03/18, 03/19, 03/20, 03/21) but hemoglobin still labile; Dr. Bauer, GI, and Dr. Acharya, general surgery, are in agreement that patient requires transfer as GI bleed is most likely in small intestine given EGD negative for bleeding (03/07 and 03/20) and EGD resolved initial bleeding in stomach (03/06) and colonoscopy resolved bleeding in colon (03/09). Patient is unable to tolerate additional colonscopy given recent resection of cecum. #Polymyalgia rheumatica flare Patient has a known history of PMR. Patient is familiar with ESR and steroid tapering. It was noted on 03/22 that the patient had significant pain to touch all over his body and especially at his right knee. Normally, the patient takes Humira for management of PMR and has not had a flare in quite some time. Given that the patient is acutely ill and has gone through many stressful events, his PMR most likely flared up as a result. - Prednisone 15 mg daily; Continue for 2-4 weeks from today, then decrease by 2.5 mg every 2-4 weeks until 10 mg daily. Afterwards, decrease by 1 mg every month unless symptoms flare up again. If no relapse, duration of treatment expected to take approximately one year. #VANNA on CKD likely prerenal In the ED, the patient had a BUN of 85, creatinine of 2.1, and GFR of 31. On chart review, patient has CKDIII with baseline Cr 1.4-1.7. VANNA likely 2/2 acute loss of blood due to GI bleed, resulting in decreased blood flow to the kidneys, which resolved 03/09 03/12 Cr increased to 1.8, likely 2/2 to suspected SBO. 03/18 Cr increased to 2.0 from 1.7, likely 2/2 dehydration has been NPO and water restriction Plan: ? Renally dose medications ? Avoid nephrotoxic medications #Bowel perforation, serosal tear, cecum #status post cecum resection 03/12/25 #s/p surgical site closure 03/17/25 #Pneumoperitoneum c/f bowel perforation Overnight on 03/11, patient's abdomen acutely distended and tense c/f SBO vs ileus. Repeat KUB showed high grade mechanical SBO pattern. Patient is unable to communicate if he is passing gas, AOx2 to person and time only. CTAP showed pneumoperitoneum, suspicious for ischemic bowel including right colon and small bowel, significantly distended small bowel loops consistent with obstruction Plan: - Continue oral medication - General surgery Dr. Smith consulted, performed exploratory laparotomy, found serosal tear in cecum, that was repaired with resection of the cecum and the ascending colon and ilio ascending colostomy - Closure of incision 03/17 - Resume regular diet - Piperacillin/tazobactam (03/10-03/17) per ID recs #DVT ruled out #Bilateral lower extremity swelling Patient noted to have bilateral lower extremity swelling on 03/20. Patient also has pain in right knee that is noted to be warmer than left knee. BLE swelling is most likely due to limited mobility and frequent transfusions the patient is receiving. - US bilateral lower extremity ordered, negative for DVT - XR right knee ordered, shows osteopenia, small compartment effusion, and advanced tricompartment osteoarthritis - Lasix 20 mg one time dose ordered 03/23 #Acute encephalopathy, likely multifactorial 2/2 #Aspiration pneumonia #Fever, improving Presented with fatigue that had sudden onset on 03/05 in the morning likely 2/2 symptomatic anemia. Rapid response x2 were called 03/08 and 03/10 for fever and acute AMS. Since, patient has had fluctuations of mental status return to baseline, then becoming altered. Patient had a fever on 03/08 initially, which has become more frequent over time. Tmax 102.4. Patient did have a sudden spike in WBC on second rapid response without leukocytosis, however this WBC quickly resolved back to baseline about 3 hours later. On 03/11 nursing recorded episode of vomiting, where patient likely aspirated as morning of 03/12, patient desaturated to 93% requiring 4L O2 oxymask. Acute encephalopathy likely multifactorial iso aspiration PNA and stroke. Fever ddx includes L arm cellulitis, meningitis, delayed nonhemolytic transfusion reaction, febrile nonhemolytic transfusion reaction, however improving on antibiotics. Dixon test neg, digoxin levels 0.7, folate and B12 wnl s/p B12 injection 03/09, T4 wnl, CRP and ESR wnl, cocci IgM and IgG neg, BCx and UCx NGTD Plan: - Piperacillin/tazobactam (03/10-03/17) - Scheduled Duonebs q8h - Neurology consulted, appreciate recommendations - Infectious disease consulted, appreciate recommendations, abx as above - Aspiration precautions elevate head of bed at 30 degrees - Patient passed swallow re-evaluation by speech therapy, recommends chopped diet #Ischemic CVA, embolic (frontal lobe, parietal lobe, basal ganglia, posterior left temporal lobe) #History of TIA #Transient aphasia Patient has hx of atrial fibrillation on Xarelto which was held on admission 03/05 due to GIB. Due to episodes of altered mental status starting 03/08, the patient had a code stroke called. CT head without contrast and CTA head and neck were negative for stroke. Neurology was consulted, and at the time CT head and CTA head and neck were negative for acute strokes. MRI was not recommended at that time due to concerns of an underlying metabolic encephalopathy. Received Xarelto 15 mg 03/10 and 03/11 03/11 MRI showed multiple embolic type acute infarcts in frontal, parietal lobes, basal ganglia and posterior left temporal lobe Plan: - Xarelto held given GI bleed - Lipitor 40 mg nightly resumed - Neurology consulted, recs appreciated #A-fib with RVR, rate not controlled, on Xarelto Patient has a history of atrial fibrillation and sees burling and joining supervisor Dr. Colon for management. Patient is currently on Xarelto and digoxin. Asked pharmacy about digoxin dosing and they confirmed 0.125 mg daily while patient's family states that the patient takes 0.125 mg Friday and Friday. Contacted Dr. Colon for confirmation, and he stated that the patient was okay taking 0.125 mg Friday. Patient's uncontrolled rate a-fib RVR is likely 2/2 presence of likely suspected SBO vs ileus CHADS-VASC score 4 (stroke risk 4.8% per year) HAS-BLED score 3 (bleed risk 5.8%, patient is at high risk for major bleeding) Plan: - Stopped patient's home digoxin - Consulted cardiology, Dr. Colon, recs appreciated - Amiodarone 200mg BID - Metoprolol XL 50 mg daily - Xarelto held given GI bleed #CHF (EF 55% 2024) Patient does not have a documented history of CHF, but patient takes furosemide 20 mg p.o. daily at home. Echocardiogram done on 04/30/2018 showed EF of 50% with moderate mitral regurgitation. Plan: ? Will hold patient's home furosemide given suspected SBO ? Strict ins and outs and daily weights ? Echocardiogram 03/11 showed negative bubble study, EF 55%, severely increased left atrial volume, aortic valve sclerosis without stenosis, mild mitral regurgitation, mild aortic regurgitation, mild tricuspid regurgitation, no thrombi. #Primary Hypertension Patient has a history of hypertension. Patient takes benazepril 40 mg daily and clonidine 0.2 mg 3 times daily at home. Plan: - Will hold patient's home antihypertensives of benazepril, clonidine, furosemide - Will monitor blood pressure closely - Metoprolol XL 50mg daily #Vitamin B12 deficiency Patient was noted to have B12 of 94 on 03/06. - B12 1,000 mcg injection, repeat B12 03/14 noted to be 1484. #Vitamin B1 deficiency Patient noted to have vitamin B1 of 6 as measured on 03/11. Might potentially be contributing to episodes of AMS in the patient. Patient does have a history of frequent alcohol consumption. - Thiamine supplement 100 mg daily DVT Prophylaxis: N/A GI Prophylaxis: Protonix Bowel: N/A Diet: Cardiac Justin: N/A Lines: Peripheral IV Antibiotics: N/A Code Status: FULL Reason for Hospitalization: GI bleed Other Barriers to Discharge: Labile H&H, suspected small intestine bleeding Patient plan of care was discussed with attending physician Dr. Spaulding and senior resident Dr. Winters (PGY-2) Jhon Levine, Internal Medicine PGY-1 Attending Provider Attestation/Addendum I attest that I was physically present for the evaluation, physical examination, lab and imaging review of the patient with the residents. I discussed the case with the residents and agree with the findings and plans of care as documented above. At bedside today, patient states he is feeling better. His pain around the knee joint and left arm has improved significantly. Hemoglobin level improved to 8.5 this morning and has remained throughout the day. Was able to work with PT. Had another bowel movement today, still dark but no saad bleeding today. Awaiting transfer to higher center for evaluation and management of small bowel bleeding. Aurelia Spaulding MD
[2025-03-23 17:24] LABS: Hematocrit 25.8 % (41.0-53.0)
[2025-03-23 17:29] LABS: Hemoglobin 8.5 g/dL (13.5-16.0)
--- NOTE | 2025-03-23 17:53 | ESPR_ITS ---
Documentation for date of: 03/23/25 Subjective Subjective Interval history: Hemoglobin hematocrit 8.5 and 25.8 Exam Vital Signs Temp Pulse Resp BP Pulse Ox O2 Del Method O2 Flow Rate 97.3 F 86 18 141/80 H 97 Room Air 6 03/23/25 08:00 03/23/25 16:00 03/23/25 14:51 03/23/25 13:05 03/23/25 14:51 03/23/25 08:00 03/23/25 06:53 Objective Labs 03/23/25 16:48 03/23/25 04:55 Labs: Laboratory Results - last 24 hr 03/22/25 03/23/25 03/23/25 17:00 04:55 16:48 WBC 11.3 H RBC 2.74 L Hgb 8.3 L 8.5 L 8.5 L Hct 25.2 L 25.9 L 25.8 L MCV 95 MCH 31.0 MCHC 32.8 RDW Std Deviation 58.4 H Plt Count 271 Neut % (Auto) 88 H Lymph % (Auto) 6 L [place] % (Auto) 6 Eos % (Auto) 0 Baso % (Auto) 0 Neut # (Auto) 9.9 H Lymph # (Auto) 0.6 L [place] # (Auto) 0.6 Eos # (Auto) 0.0 Baso # (Auto) 0.0 Immature Gran # (Auto) 0.10 H Absolute Nucleated RBC 0.00 Immature Gran % 1 H Nucleated RBC % 0 ESR 44 H Sodium 141 Potassium 4.7 Chloride 108 H Carbon Dioxide 25.5 Anion Gap 8 BUN 21 Creatinine 1.5 H Estim Creat Clear Calc 43.1 L eGFR 47 L BUN/Creatinine Ratio 14 Glucose 180 H D Calculated Osmolality 289 Calcium 8.6 Corrected Calcium 9.4 Phosphorus 5.3 H Magnesium 2.2 Albumin 3.0 L Impressions Impression: Small bowel GI bleed requiring blood transfusion Recent CVA anticoagulation on hold Cardio embolic phenomena due to underlying chronic atrial fibrillation Continue current management Awaiting bed at [facility] ABG Interpretation ABG results: 03/05/25 03/09/25 03/12/25 13:17 23:55 15:20 ABG pH 7.45 7.46 H ABG pCO2 27 L 36 ABG pO2 122 H 88 D ABG HCO3 18 L 25 ABG O2 Saturation 100 H 99 H ABG Base Excess -5 L 1 VBG pH 7.39 VBG pCO2 36 VBG pO2 31 VBG Base Excess -3 03/12/25 15:53 ABG pH ABG pCO2 ABG pO2 ABG HCO3 ABG O2 Saturation ABG Base Excess VBG pH 7.49 VBG pCO2 34 L VBG pO2 94 H VBG Base Excess 2 Assessment & Plan A&P Narrative metoprolol increased to 50 BID HR 98 afib Stable hemodynamics Time Spent With Patient Time: Total time spent is greater than 50% in coordination of care (as documented) at patient's floor/unit and/or counseling patient:
[2025-03-23] MEDS: PANTOPRAZOLE 40 MG TABLET PO (21:31)
[2025-03-23] MEDS: ATORVASTATIN CALCIUM 20 MG TABLET 40 MG PO (21:31)
--- NOTE | 2025-03-23 23:39 | PD.NEUROPROG ---
Documentation for date of: 03/23/25 Subjective Subjective Interval history: Patient was seen in Telemetry today, no more complaints today. He walked in the hallway with the physical therapist, denies any abdominal pain or bloody stool. Exam - Neurology Vital Signs Temp Pulse Resp BP Pulse Ox O2 Del Method O2 Flow Rate 97.6 F 69 20 135/87 H 98 Room Air 6 03/23/25 20:00 03/23/25 22:29 03/23/25 22:29 03/23/25 21:31 03/23/25 22:29 03/23/25 20:00 03/23/25 06:53 Narrative Exam GENERAL APPEARANCE: Well hydrated, well-nourished in no acute distress. HEENT: Normocephalic, atraumatic, extraocular movements intact. Pupils: Equal reacting to light NECK: Supple, no JVD or bruits. CARDIOVASULAR: Heart: S1, S2 heard, regular without S3-S4 or murmur no rubs or gallops. LUNGS/CHEST: Clear to auscultation bilaterally. No rails, rhonchi, or wheezing. Normal inspection. ABDOMEN: nontender, with normal bowel sounds, S/P laparotomy EXTREMITIES: Normal inspection and palpation. No edema, clubbing or cyanosis. SKIN: Warm and dry without rashes. Normal inspection. MUSCULOSKELETAL: No cervical, thoracic, lumbar or midline bony tenderness. Normal inspection. NEURO: Alert, awake and oriented x3. Cranial nerves: II through XII grossly intact. Speech and language: Normal with no dysarthria or dysphasia. Motor system: Tone and bulk: Normal: Strength: 5 out of 5 in all 4 extremities; No pronator drift noted. Deep tendon reflexes: 2+ bilaterally symmetrical. Plantar reflex: Downgoing bilaterally. Sensory system: Intact to pinprick sensation bilaterally. Coordination: Intact to [id number] and [id number] test bilaterally. No ataxia, no dysmetria, or dysdiadochokinesia noted. No intention tremors noted. Gait: not tested. No signs of meningeal irritation noted. PSYCHIATRIC: Normal mood and affect. Objective Labs 03/23/25 16:48 03/23/25 04:55 Labs: Laboratory Results - last 24 hr 03/23/25 03/23/25 04:55 16:48 WBC 11.3 H RBC 2.74 L Hgb 8.5 L 8.5 L Hct 25.9 L 25.8 L MCV 95 MCH 31.0 MCHC 32.8 RDW Std Deviation 58.4 H Plt Count 271 Neut % (Auto) 88 H Lymph % (Auto) 6 L [place] % (Auto) 6 Eos % (Auto) 0 Baso % (Auto) 0 Neut # (Auto) 9.9 H Lymph # (Auto) 0.6 L [place] # (Auto) 0.6 Eos # (Auto) 0.0 Baso # (Auto) 0.0 Immature Gran # (Auto) 0.10 H Absolute Nucleated RBC 0.00 Immature Gran % 1 H Nucleated RBC % 0 ESR 44 H Sodium 141 Potassium 4.7 Chloride 108 H Carbon Dioxide 25.5 Anion Gap 8 BUN 21 Creatinine 1.5 H Estim Creat Clear Calc 43.1 L eGFR 47 L BUN/Creatinine Ratio 14 Glucose 180 H D Calculated Osmolality 289 Calcium 8.6 Corrected Calcium 9.4 Phosphorus 5.3 H Magnesium 2.2 Albumin 3.0 L ABG Interpretation ABG results: 03/05/25 03/09/25 03/12/25 13:17 23:55 15:20 ABG pH 7.45 7.46 H ABG pCO2 27 L 36 ABG pO2 122 H 88 D ABG HCO3 18 L 25 ABG O2 Saturation 100 H 99 H ABG Base Excess -5 L 1 VBG pH 7.39 VBG pCO2 36 VBG pO2 31 VBG Base Excess -3 03/12/25 15:53 ABG pH ABG pCO2 ABG pO2 ABG HCO3 ABG O2 Saturation ABG Base Excess VBG pH 7.49 VBG pCO2 34 L VBG pO2 94 H VBG Base Excess 2 Assessment & Plan Assessment and plan (1) Cerebrovascular accident: Status: Acute (2) Atrial fibrillation: Status: Chronic (3) Hypertension: Status: Chronic (4) Severe anemia: Status: Acute (5) GI (gastrointestinal bleed): Status: Acute (6) Altered mental status: Status: Acute (7) Acute kidney injury: Status: Acute Additional Assessment & Plan Additional Plan: 1) Cerebrovascular accident: Status: Acute Assessment and plan: Secondary to cardioembolic phenomena from atrial fibrillation Continue to hold on Xarelto because of severe GI bleeding (2) Atrial fibrillation: Status: Chronic Assessment and plan: Continue with rate control (3) Hypertension: Status: Chronic Assessment and plan: Continue with current blood pressure medications (4) Severe anemia: Status: Acute Assessment and plan: continue to monitor hemoglobin and hematocrit closely and consider blood transfusion as needed 5) GI bleeding: Suspect small intestinal pathology, waiting for transfer
[2025-03-24] VITALS (12 sets, daily range): BP systolic 130–162; BP diastolic 74–111; PULSE 69–95; RESP 16–98; TEMP 36.2–36.4; O2SAT 94–100; BMI 26.5
[2025-03-24 06:12] LABS: Basophils # (Auto) 0.0 Thou/mm3 (0.0-0.2); Basophils % (Auto) 0 % (0-2.5); Eosinophils # (Auto) 0.0 Thou/mm3 (0.0-0.5); Eosinophils % (Auto) 0 % (0-10); Hematocrit 25.7 % (41.0-53.0); Immature Granulocytes Auto 0.07 Thou/mm3 (0.00-0.00); Lymphocytes # (Auto) 0.7 Thou/mm3 (1.0-4.8); Lymphocytes % (Auto) 7 % (10-50); Mean Corpuscular HGB Conc 32.3 g/dl (31.0-37.0); Mean Corpuscular Hemoglobin 30.7 pg (25.0-35.0); Mean Corpuscular Volume 95 fL (80-100); Monocytes # (Auto) 0.6 Thou/mm3 (0.0-0.8); Monocytes % (Auto) 6 % (0-12); Neutrophils # (Auto) 8.4 Thou/mm3 (1.8-7.7); Neutrophils % (Auto) 85 % (37-80); Nucleated Red Blood Cell # 0.00 Thou/mm3 (0.00-0.00); Nucleated Red Blood Cell % 0 /100 WBC (0); Platelet Count 322 Thou/mm3 (140-440); RDW Standard Deviation 57.1 fL (35.1-43.9); Red Blood Count 2.70 Miln/mm3 (4.50-5.90); White Blood Count 9.9 Thou/mm3 (3.8-10.6)
[2025-03-24 06:23] LABS: Albumin, Serum 3.1 gm/dL (3.4-4.8); Anion Gap 11 (7-16); BUN/Creatinine Ratio 17 Ratio (12-20); Blood Urea Nitrogen 25 mg/dL (9-23); Calcium 8.7 mg/dL (8.3-10.6); Calcium (Corrected) 9.4 mg/dL (8.5-10.1); Carbon Dioxide 25.3 mMol/L (20.0-31.0); Chloride 106 mMol/L (98-107); Creatinine (Component) 1.5 mg/dL (0.6-1.3); Estimated Creatinine Clearance 43.1 mL/min (>60); Glucose 160 mg/dL (74-106); Magnesium 2.0 mg/dL (1.6-2.6); Osmolality,Calculated 290 (275-295); Phosphorous 3.9 mg/dL (2.4-5.1); Potassium 4.3 mMol/L (3.4-5.1); Sodium 142 mMol/L (136-145); eGFR 47 See Note
[2025-03-24 07:05] LABS: Hemoglobin 8.3 g/dL (13.5-16.0)
[2025-03-24] MEDS: LEVALBUTEROL RT 1.25 MG/0.5 ML NEBU INH ×3 (07:24→22:29)
[2025-03-24] MEDS: IPRATROPIUM RT 0.5 MG/ 2.5 ML NEBU INH ×3 (07:24→22:29)
--- NOTE | 2025-03-24 08:05 | PD.IMPROG ---
Documentation for date of: 03/24/25 Subjective Subjective Interval history: No cardiac symptoms reported Hemoglobin 8.3 Atrial fibrillation rate controlled Continue on amiodarone, metoprolol Exam Vital Signs Temp Pulse Resp BP Pulse Ox O2 Del Method O2 Flow Rate 97.3 F 72 18 158/94 H 99 Room Air 6 03/24/25 04:00 03/24/25 07:24 03/24/25 07:24 03/24/25 04:00 03/24/25 07:24 03/24/25 04:00 03/23/25 06:53 Routine HEENT Exam Head: Present normocephalic and atraumatic Eye: Present EOMI and PERRL ENT: Present mucous membranes moist Routine Neck Exam Neck: Present supple and trachea midline Routine Respiratory Exam Respiratory: Present chest non-tender, lungs clear, normal breath sounds and no resp distress Routine Cardiovascular Exam Cardiovascular: Present RRR Routine Abdominal Exam Abdominal: Present soft and normoactive bowel sounds Routine Extremities Exam Extremities: Present full ROM Routine Skin Exam Skin: Present intact, dry and warm Objective Labs 03/24/25 04:50 03/24/25 04:50 Labs: Laboratory Results - last 24 hr 03/23/25 03/23/25 03/24/25 04:55 16:48 04:50 WBC 9.9 RBC 2.70 L Hgb 8.5 L 8.3 L Hct 25.8 L 25.7 L MCV 95 MCH 30.7 MCHC 32.3 RDW Std Deviation 57.1 H Plt Count 322 D Neut % (Auto) 85 H Lymph % (Auto) 7 L Tyrrell % (Auto) 6 Eos % (Auto) 0 Baso % (Auto) 0 Neut # (Auto) 8.4 H Lymph # (Auto) 0.7 L Tyrrell # (Auto) 0.6 Eos # (Auto) 0.0 Baso # (Auto) 0.0 Immature Gran # (Auto) 0.07 H Absolute Nucleated RBC 0.00 Immature Gran % 1 H Nucleated RBC % 0 ESR 44 H Sodium 142 Potassium 4.3 Chloride 106 Carbon Dioxide 25.3 Anion Gap 11 BUN 25 H Creatinine 1.5 H Estim Creat Clear Calc 43.1 L eGFR 47 L BUN/Creatinine Ratio 17 Glucose 160 H Calculated Osmolality 290 Calcium 8.7 Corrected Calcium 9.4 Phosphorus 3.9 Magnesium 2.0 Albumin 3.1 L ABG Interpretation ABG results: 03/05/25 03/09/25 03/12/25 13:17 23:55 15:20 ABG pH 7.45 7.46 H ABG pCO2 27 L 36 ABG pO2 122 H 88 D ABG HCO3 18 L 25 ABG O2 Saturation 100 H 99 H ABG Base Excess -5 L 1 VBG pH 7.39 VBG pCO2 36 VBG pO2 31 VBG Base Excess -3 03/12/25 15:53 ABG pH ABG pCO2 ABG pO2 ABG HCO3 ABG O2 Saturation ABG Base Excess VBG pH 7.49 VBG pCO2 34 L VBG pO2 94 H VBG Base Excess 2 Assessment & Plan A&P Narrative metoprolol increased to 50 BID HR 98 afib Stable hemodynamics Time Spent With Patient Time: Total time spent is greater than 50% in coordination of care (as documented) at patient's floor/unit and/or counseling patient:
[2025-03-24] MEDS: AMIODARONE HCL 200 MG TABLET PO ×2 (08:27→20:32)
[2025-03-24] MEDS: METOPROLOL SUCCINATE XL 25 MG TABCR 50 MG PO (08:27)
[2025-03-24] MEDS: THIAMINE 100 MG TABLET PO (08:28)
[2025-03-24] MEDS: PANTOPRAZOLE 40 MG TABLET PO ×2 (08:28→20:33)
--- NOTE | 2025-03-24 10:46 | PC.SS ---
Update: Higher level of care remains pending. Awaiting bed availability at [facility].
[2025-03-24] MEDS: FUROSEMIDE INJ 10 MG/ML VIAL 2 ML 20 MG IVP (12:39)
--- NOTE | 2025-03-24 13:42 | ESPR_ITS ---
<Statement entered by Aurelia Spaulding MD - 03/24/25 22:20> I attest that I was physically present for the evaluation, physical examination, lab and imaging review of the patient with the residents. I discussed the case with the residents and agree with the findings and plans of care as documented above. At bedside today, patient states he is feeling better and denies any complaints. Continues to have improvement in pain from his polymyalgia rheumatica. Hemoglobin remains stable, 8.3 this morning. Awaiting transfer to [facility] for small bowel bleeding workup and management, awaiting bed availability. Aurelia Spaulding MD <Statement entered by Yara Winters MD - 03/24/25 14:28> Pt is alert and awake. Hgb remains stable above 8. Pt endorses to feeling much better including resolution of pain due to PMR flare. Will continue Prednisone 15mg daily and will start the taper after 1 week. Pt is in chronic a-fib rate controlled with amiodarone and metroprolol xl. anticoagulation was held due to GI bleed. Will discuss with Dr. Bauer regarding resuming anticoagulation. Will likely start Eliquis 2.5mg BID once approved by GI. Otherwise no melena or hematochezia reported in 24 hours because Pt have not had a bowel movement. Pt is pending bed availability at [facility]. Patient was seen and examined by me personally. I have directly supervised and reviewed documentation by the team resident and agree with its findings. ------- Plan of care was discussed with the attending, Dr. Amparo Winters, PGY-2 Documentation for date of: 03/24/25 Subjective Subjective Interval history: Overnight events: No acute events overnight. Patient was seen and examined at bedside. AM vitals and labs reviewed. Patient is doing well. Hemoglobin stable at 8.3 this AM. Creatinine stable at 1.5 but BUN noted to slightly increase at 25. Continue to pend transfer to [facility]. Started Lasix 20 mg daily given continued edematous BLE. Discussed resuming anticoagulation with GI, Dr. Bauer, who recommends ___ Further discussed prednisone taper for PMR flare, possibly 3 week taper with 5mg decrease each week. Review of systems otherwise negative except for what is mentioned above. Exam Vital Signs Temp Pulse Resp BP Pulse Ox O2 Del Method O2 Flow Rate 97.4 F 83 19 151/100 H 94 L Room Air 6 03/24/25 08:00 03/24/25 12:39 03/24/25 08:00 03/24/25 12:39 03/24/25 08:00 03/24/25 08:00 03/23/25 06:53 Narrative Exam Physical Exam: General: Alert, no acute distress. Skin: Warm, intact. Head: Normocephalic, atraumatic. Eye: Normal conjunctiva, PERRL. Cardiovascular: Regular rate and irregular rhythm, soft systolic murmur best heard over tricuspid/mitral region, +S1/S2. Respiratory: Lungs are clear to auscultation, respirations unlabored, no crackles, no wheezing. Gastrointestinal: Soft, nontender, non-distended. No guarding or rebound tenderness. Extremities: 1+ BLE edema, no cyanosis, no clubbing. Left arm and right arm dark discoloring present, non-tender. Neuro: No focal deficits observed. Conversant, moving all extremities. No overt cerebellar signs/incoordination. Objective Labs 03/24/25 04:50 03/24/25 04:50 Labs: Laboratory Results - last 24 hr 03/23/25 03/24/25 16:48 04:50 WBC 9.9 RBC 2.70 L Hgb 8.5 L 8.3 L Hct 25.8 L 25.7 L MCV 95 MCH 30.7 MCHC 32.3 RDW Std Deviation 57.1 H Plt Count 322 D Neut % (Auto) 85 H Lymph % (Auto) 7 L Sampson % (Auto) 6 Eos % (Auto) 0 Baso % (Auto) 0 Neut # (Auto) 8.4 H Lymph # (Auto) 0.7 L Sampson # (Auto) 0.6 Eos # (Auto) 0.0 Baso # (Auto) 0.0 Immature Gran # (Auto) 0.07 H Absolute Nucleated RBC 0.00 Immature Gran % 1 H Nucleated RBC % 0 Sodium 142 Potassium 4.3 Chloride 106 Carbon Dioxide 25.3 Anion Gap 11 BUN 25 H Creatinine 1.5 H Estim Creat Clear Calc 43.1 L eGFR 47 L BUN/Creatinine Ratio 17 Glucose 160 H Calculated Osmolality 290 Calcium 8.7 Corrected Calcium 9.4 Phosphorus 3.9 Magnesium 2.0 Albumin 3.1 L ABG Interpretation ABG results: 03/05/25 03/09/25 03/12/25 13:17 23:55 15:20 ABG pH 7.45 7.46 H ABG pCO2 27 L 36 ABG pO2 122 H 88 D ABG HCO3 18 L 25 ABG O2 Saturation 100 H 99 H ABG Base Excess -5 L 1 VBG pH 7.39 VBG pCO2 36 VBG pO2 31 VBG Base Excess -3 03/12/25 15:53 ABG pH ABG pCO2 ABG pO2 ABG HCO3 ABG O2 Saturation ABG Base Excess VBG pH 7.49 VBG pCO2 34 L VBG pO2 94 H VBG Base Excess 2 Quality Measures Quality Measures VTE prophylaxis Advance care planning discussed with:: patient and spouse Assessment & Plan Assessment Current Active Medications: Generic Name Dose Route Start Last Admin Trade Name Freq PRN Reason Stop Dose Admin Acetaminophen 650 mg 03/05/25 15:28 03/22/25 18:41 Acetaminophen 325 Mg Tablet PO 04/04/25 15:27 650 mg Q6H PRN Administration Fever >101.5 or pain (1-3) Hydrocodone Bitart/Acetaminophen 1 tab 03/22/25 14:29 Hydrocodone/Apap 5/325 Tablet PO 03/27/25 14:28 Q4HR PRN PAIN SCALE 4-10(Mod-Sev Amiodarone HCl 200 mg 03/14/25 21:30 03/24/25 08:27 Amiodarone Hcl 200 Mg Tablet PO 04/13/25 21:29 200 mg BID CLAUDE Administration Atorvastatin Calcium 40 mg 03/17/25 21:00 03/23/25 21:31 Atorvastatin Calcium 20 Mg Tablet PO 04/16/25 20:59 40 mg HS CLAUDE Administration Furosemide 20 mg 03/24/25 12:00 03/24/25 12:39 Furosemide Inj 10 Mg/Ml Vial 2 Ml IVP 04/23/25 11:59 20 mg QDAY CLAUDE Administration Ipratropium [place] 0.5 mg 03/12/25 15:00 03/24/25 07:24 Ipratropium Rt 0.5 Mg/ 2.5 Ml Nebu INH 04/11/25 14:59 0.5 mg Q8HRRT CLAUDE Administration Labetalol HCl 10 mg 03/13/25 22:39 03/14/25 20:56 Labetalol Inj 5 Mg/Ml Vial 20 Ml IVP 04/12/25 09:59 10 mg Q4HR PRN Administration Sbp > 170 or DBP > 120 Levalbuterol HCl 1.25 mg 03/12/25 14:00 03/24/25 07:24 Levalbuterol Rt 1.25 Mg/0.5 Ml Nebu INH 04/11/25 13:59 1.25 mg Q8HR CLAUDE Administration Metoprolol Succinate 50 mg 03/19/25 09:00 03/24/25 08:27 Metoprolol Succinate Xl 25 Mg Tabcr PO 04/18/25 08:59 50 mg QDAY CLAUDE Administration Ondansetron HCl 4 mg 03/05/25 13:06 Ondansetron Inj 2 Mg/Ml Inj 2 Ml IVP 04/04/25 13:05 Q4HR PRN NAUSEA OR VOMITING Pantoprazole Sodium 40 mg 03/23/25 21:00 03/24/25 08:28 Pantoprazole 40 Mg Tablet PO 04/22/25 20:59 40 mg BID CLAUDE Administration Protocol Pharmacy Consult 1 each 03/14/25 05:23 Pharmacy Renal Dose Adjustment 1 Ea XX 04/13/25 05:22 PRN PRN CONSULT Prednisone 15 mg 03/22/25 15:00 03/24/25 08:28 Prednisone 5 Mg Tablet PO 04/21/25 14:59 15 mg QDAY CLAUDE Administration Sodium Chloride 3 ml 03/12/25 10:45 03/16/25 14:14 Sodium Chloride Rt Aleena 0.9% 3 Ml Nebu INH 04/11/25 10:44 3 ml PRN PRN Administration SOLN Thiamine HCl 100 mg 03/17/25 13:00 03/24/25 08:28 Thiamine 100 Mg Tablet PO 04/16/25 12:59 100 mg QDAY CLAUDE Administration Plan Devan Rios is an 79M pmhx significant for A-fib on Xarelto, hypertension, RA, rheumatoid arthritis, PMR, and CKDIIIa who presented to [facility] ED on 03/05 for generalized weakness and inability to walk, admitted for upper and lower GIB, course complicated by ischemic CVAs, AMS and bowel perforation requring emergent surgery. #Suspected small intestine GI bleed 2/2 #Angiodysplasias of GI tract #Upper GI bleed and lower GI bleed #Symptomatic anemia Patient was brought to ED due to generalized fatigue and difficulty waking on the morning of 03/05 with melena started 2-3 weeks ago. Admission H&H 12/01/.2 s/p 2 prbc on 03/05 and 2 more pRBC on 03/07 with stabilization of H&H. Initial EGD showed angiodysplastic bleeding in gastric body and gastric fundus, requiring cautery and clipping. Repeat EGD 03/07, which showed no additional bleeding Colonoscopy planned for 03/08, delayed to 03/09, which showed moderate diverticulosis in sigmoid and descending colon, and multiple bleeding colonic angiodysplastic lesions that were treated with argon plasma coagulation Ddx for multiple angiodysplasias possibly secondary to subtherapeutic anticoagulation on Xarelto 15 mg instead of Xarelto 20 mg causing multiple emboli with possible embolisms to GI tract Plan: - GI consulted, recs appreciated - Patient to follow-up with Dr. Bauer, GI, and referral to perform capsule endoscopy - GI performed EGD 03/20, which did not show additional signs of bleeding in stomach - Hold Xarelto given active GI bleed - NM GI scan ordered, shows focal isotope accumulation in stomach, but given clear EGD recently, the true location of the bleeding is likely in the small bowel close to the stomach - Repeat H&H 1700 - Transfer process started to facility of higher level of care for suspected small intestine bleed given after a total of 10 units of pRBC transfused (dates: 03/05, 03/05, 03/07, 03/07, 03/12, 03/13, 03/18, 03/19, 03/20, 03/21) but hemoglobin still labile; Dr. Bauer, GI, and Dr. Acharya, general surgery, are in agreement that patient requires transfer as GI bleed is most likely in small intestine given EGD negative for bleeding (03/07 and 03/20) and EGD resolved initial bleeding in stomach (03/06) and colonoscopy resolved bleeding in colon (03/09). Patient is unable to tolerate additional colonscopy given recent resection of cecum. #Polymyalgia rheumatica flare #History of rheumatoid arthritis Patient has a known history of PMR. Patient is familiar with ESR and steroid tapering. It was noted on 03/22 that the patient had significant pain to touch all over his body and especially at his right knee. Normally, the patient takes Humira for management of PMR and has not had a flare in quite some time. Given that the patient is acutely ill and has gone through many stressful events, his PMR most likely flared up as a result. ESR 44 on 03/24. - Prednisone 15 mg daily; Continue for 3 weeks, decrease by 5 mg each week. #A-fib with RVR, rate controlled, on Xarelto Patient has a history of atrial fibrillation and sees special tax auditor Dr. Colon for management. Patient is currently on Xarelto and digoxin. Asked pharmacy about digoxin dosing and they confirmed 0.125 mg daily while patient's family states that the patient takes 0.125 mg Friday and Friday. Contacted Dr. Colon for confirmation, and he stated that the patient was okay taking 0.125 mg Friday. Patient's uncontrolled rate a-fib RVR is likely 2/2 presence of likely suspected SBO vs ileus CHADS-VASC score 4 (stroke risk 4.8% per year) HAS-BLED score 3 (bleed risk 5.8%, patient is at high risk for major bleeding) Plan: - Stopped patient's home digoxin - Consulted cardiology, Dr. Colon, recs appreciated - Amiodarone 200mg BID - Metoprolol XL 50 mg daily - Xarelto held given GI bleed #CHF (EF 55% 2024) Patient does not have a documented history of CHF, but patient takes furosemide 20 mg p.o. daily at home. Echocardiogram done on 04/30/2018 showed EF of 50% with moderate mitral regurgitation. Plan: ? Will hold patient's home furosemide given suspected SBO ? Strict ins and outs and daily weights ? Echocardiogram 03/11 showed negative bubble study, EF 55%, severely increased left atrial volume, aortic valve sclerosis without stenosis, mild mitral regurgitation, mild aortic regurgitation, mild tricuspid regurgitation, no thrombi. - Lasix 20 mg daily #VANNA on CKD likely prerenal In the ED, the patient had a BUN of 85, creatinine of 2.1, and GFR of 31. On chart review, patient has CKDIII with baseline Cr 1.4-1.7. VANNA likely 2/2 acute loss of blood due to GI bleed, resulting in decreased blood flow to the kidneys, which resolved 03/09 03/12 Cr increased to 1.8, likely 2/2 to suspected SBO. 03/18 Cr increased to 2.0 from 1.7, likely 2/2 dehydration has been NPO and water restriction Plan: ? Renally dose medications ? Avoid nephrotoxic medications #Bowel perforation, serosal tear, cecum #status post cecum resection 03/12/25 #s/p surgical site closure 03/17/25 #Pneumoperitoneum c/f bowel perforation Overnight on 03/11, patient's abdomen acutely distended and tense c/f SBO vs ileus. Repeat KUB showed high grade mechanical SBO pattern. Patient is unable to communicate if he is passing gas, AOx2 to person and time only. CTAP showed pneumoperitoneum, suspicious for ischemic bowel including right colon and small bowel, significantly distended small bowel loops consistent with obstruction Plan: - Continue oral medication - General surgery Dr. Smith consulted, performed exploratory laparotomy, found serosal tear in cecum, that was repaired with resection of the cecum and the ascending colon and ilio ascending colostomy - Closure of incision 03/17 - Resume regular diet - Piperacillin/tazobactam (03/10-03/17) per ID recs #DVT ruled out #Bilateral lower extremity swelling Patient noted to have bilateral lower extremity swelling on 03/20. Patient also has pain in right knee that is noted to be warmer than left knee. BLE swelling is most likely due to limited mobility and frequent transfusions the patient is receiving. - US bilateral lower extremity ordered, negative for DVT - XR right knee ordered, shows osteopenia, small compartment effusion, and advanced tricompartment osteoarthritis - Lasix 20 mg one time dose ordered 03/23 #Acute encephalopathy, likely multifactorial 2/2 #Aspiration pneumonia #Fever, improving Presented with fatigue that had sudden onset on 03/05 in the morning likely 2/2 symptomatic anemia. Rapid response x2 were called 03/08 and 03/10 for fever and acute AMS. Since, patient has had fluctuations of mental status return to baseline, then becoming altered. Patient had a fever on 03/08 initially, which has become more frequent over time. Tmax 102.4. Patient did have a sudden spike in WBC on second rapid response without leukocytosis, however this WBC quickly resolved back to baseline about 3 hours later. On 03/11 nursing recorded episode of vomiting, where patient likely aspirated as morning of 03/12, patient desaturated to 93% requiring 4L O2 oxymask. Acute encephalopathy likely multifactorial iso aspiration PNA and stroke. Fever ddx includes L arm cellulitis, meningitis, delayed nonhemolytic transfusion reaction, febrile nonhemolytic transfusion reaction, however improving on antibiotics. Dixon test neg, digoxin levels 0.7, folate and B12 wnl s/p B12 injection 03/09, T4 wnl, CRP and ESR wnl, cocci IgM and IgG neg, BCx and UCx NGTD Plan: - Piperacillin/tazobactam (03/10-03/17) - Scheduled Duonebs q8h - Neurology consulted, appreciate recommendations - Infectious disease consulted, appreciate recommendations, abx as above - Aspiration precautions elevate head of bed at 30 degrees - Patient passed swallow re-evaluation by speech therapy, recommends chopped diet #Ischemic CVA, embolic (frontal lobe, parietal lobe, basal ganglia, posterior left temporal lobe) #History of TIA #Transient aphasia Patient has hx of atrial fibrillation on Xarelto which was held on admission 03/05 due to GIB. Due to episodes of altered mental status starting 03/08, the patient had a code stroke called. CT head without contrast and CTA head and neck were negative for stroke. Neurology was consulted, and at the time CT head and CTA head and neck were negative for acute strokes. MRI was not recommended at that time due to concerns of an underlying metabolic encephalopathy. Received Xarelto 15 mg 03/10 and 03/11 03/11 MRI showed multiple embolic type acute infarcts in frontal, parietal lobes, basal ganglia and posterior left temporal lobe Plan: - Xarelto held given GI bleed - Lipitor 40 mg nightly resumed - Neurology consulted, recs appreciated #Primary Hypertension Patient has a history of hypertension. Patient takes benazepril 40 mg daily and clonidine 0.2 mg 3 times daily at home. Plan: - Will hold patient's home antihypertensives of benazepril, clonidine, furosemide - Will monitor blood pressure closely - Metoprolol XL 50mg daily #Vitamin B12 deficiency Patient was noted to have B12 of 94 on 03/06. - B12 1,000 mcg injection, repeat B12 03/14 noted to be 1484. #Vitamin B1 deficiency Patient noted to have vitamin B1 of 6 as measured on 03/11. Might potentially be contributing to episodes of AMS in the patient. Patient does have a history of frequent alcohol consumption. - Thiamine supplement 100 mg daily DVT Prophylaxis: N/A GI Prophylaxis: Protonix Bowel: N/A Diet: Cardiac Justin: N/A Lines: Peripheral IV Antibiotics: N/A Code Status: FULL Reason for Hospitalization: GI bleed Other Barriers to Discharge: Labile H&H, suspected small intestine bleeding Patient plan of care was discussed with attending physician Dr. Spaulding and senior resident Dr. Winters (PGY-2) Jhon Levine DO Internal Medicine PGY-1
[2025-03-24 15:05] LABS: Collection Type, Urine Clean Catch
[2025-03-24 15:16] LABS: Bilirubin,Urine Negative (Negative); Blood,Urine Negative (Negative); Clarity,Urine Clear (Clear/Hazy); Color,Urine Colorless (Lt Yel-Yel); Glucose, Urine Negative (Negative); Ketones,Urine Negative (Negative); Leukocyte Esterase,Urine Negative (Negative); Nitrite,Urine Negative (Negative); PH,Urine 6.0 (5.0-7.0); Protein,Urine Negative (Neg - Trace); RBC,Urine 1 /hpf (0-3); Specific Gravity,Urine 1.006 (1.001-1.035); Squamous Epithelial Cell,Urine < 1 /hpf (0-5); Urobilinogen,Urine Negative mg/dL (0.0-1.0); WBC,Urine < 1 /hpf (0-5)
--- NOTE | 2025-03-24 15:27 | PC.CM ---
Addendum entered by Jake Arrington RN 03/25/25 16:52: 1650-Received call from [facility] TC MARCO Alexander, she is requesting an updated discharge summary to be sent via fax to number [phone] so that a bed may be released to this patient today. Updated Dr. Kelly who will update discharge summary, also updated MARYANN Melchor, he will take over transfer at this time, packet has been handed off to him. Addendum entered by Jake Arrington RN 03/25/25 10:03: 1000- Received call from MARCO Alexander, she stated that hospitalist would still like patient to transfer to [facility] if there is a bed available, follow up call to [facility] transfer center, spoke to MACRO Rodríguez, there is no bed available at this time, she was provided with an update on patient's status this morning, they are still pending bed availability at this time, she will call us back and provide an update later today if there is a bed available. Addendum entered by Juanita Powell RN 03/24/25 18:45: I updated the packet and I took it to charge nurse in ICU. I made a packet for REACH just in case patient needs fight team. Patient is waiting for a bed at [facility]. You can follow up with [facility] patient placement at [phone]. Original Note: [address] out to [facility] patient placement [phone]. I spoke to Anne transfer nurse and they do not have any beds at this this time. Packet is ready for transport. Transfer back agreement completed and faxed back.
--- NOTE | 2025-03-24 16:02 | PC.SS ---
Rounding Note: Patient to be transferred to [facility] pending bed availability.
[2025-03-24] MEDS: ATORVASTATIN CALCIUM 20 MG TABLET 40 MG PO (20:33)
--- NOTE | 2025-03-24 20:53 | ESPR_ITS ---
Documentation for date of: 03/24/25 Subjective Subjective Interval history: Hemoglobin hematocrit 8.3 and 24.7 Hopefully bed will be available tonight at [facility] Exam Vital Signs Temp Pulse Resp BP Pulse Ox O2 Del Method O2 Flow Rate 97.2 F 81 20 154/104 H 97 Room Air 6 03/24/25 16:00 03/24/25 20:32 03/24/25 16:00 03/24/25 20:32 03/24/25 16:00 03/24/25 16:00 03/23/25 06:53 Objective Labs 03/24/25 04:50 03/24/25 04:50 Labs: Laboratory Results - last 24 hr 03/24/25 03/24/25 04:50 14:30 WBC 9.9 RBC 2.70 L Hgb 8.3 L Hct 25.7 L MCV 95 MCH 30.7 MCHC 32.3 RDW Std Deviation 57.1 H Plt Count 322 D Neut % (Auto) 85 H Lymph % (Auto) 7 L Swain % (Auto) 6 Eos % (Auto) 0 Baso % (Auto) 0 Neut # (Auto) 8.4 H Lymph # (Auto) 0.7 L Swain # (Auto) 0.6 Eos # (Auto) 0.0 Baso # (Auto) 0.0 Immature Gran # (Auto) 0.07 H Absolute Nucleated RBC 0.00 Immature Gran % 1 H Nucleated RBC % 0 Sodium 142 Potassium 4.3 Chloride 106 Carbon Dioxide 25.3 Anion Gap 11 BUN 25 H Creatinine 1.5 H Estim Creat Clear Calc 43.1 L eGFR 47 L BUN/Creatinine Ratio 17 Glucose 160 H Calculated Osmolality 290 Calcium 8.7 Corrected Calcium 9.4 Phosphorus 3.9 Magnesium 2.0 Albumin 3.1 L Ur Collection Type Clean Catch Urine Color Colorless A Urine Clarity Clear Urine pH 6.0 Ur Specific [place] 1.006 Urine Protein Negative Urine Glucose (UA) Negative Urine Ketones Negative Urine Blood Negative Urine Nitrite Negative Urine Bilirubin Negative Urine Urobilinogen (Auto) Negative Ur Leukocyte Esterase Negative Urine RBC 1 Urine WBC < 1 Ur Squamous Epith Cells < 1 Urine Bacteria None Impressions Impression: Small bowel bleed Waiting bed at [facility] Chances are good he may get a bed tonight ABG Interpretation ABG results: 03/05/25 03/09/25 03/12/25 13:17 23:55 15:20 ABG pH 7.45 7.46 H ABG pCO2 27 L 36 ABG pO2 122 H 88 D ABG HCO3 18 L 25 ABG O2 Saturation 100 H 99 H ABG Base Excess -5 L 1 VBG pH 7.39 VBG pCO2 36 VBG pO2 31 VBG Base Excess -3 03/12/25 15:53 ABG pH ABG pCO2 ABG pO2 ABG HCO3 ABG O2 Saturation ABG Base Excess VBG pH 7.49 VBG pCO2 34 L VBG pO2 94 H VBG Base Excess 2 Assessment & Plan A&P Narrative metoprolol increased to 50 BID HR 98 afib Stable hemodynamics Time Spent With Patient Time: Total time spent is greater than 50% in coordination of care (as documented) at patient's floor/unit and/or counseling patient:
--- NOTE | 2025-03-24 21:02 | ESPR_ITS ---
Documentation for date of: 03/24/25 Subjective Subjective Interval history: Patient was seen in Telemetry today, no more complaints today. He walked in the hallway with the physical therapist, denies any abdominal pain or bloody stool. Exam - Neurology Vital Signs Temp Pulse Resp BP Pulse Ox O2 Del Method O2 Flow Rate 97.2 F 81 20 154/104 H 97 Room Air 6 03/24/25 16:00 03/24/25 20:32 03/24/25 16:00 03/24/25 20:32 03/24/25 16:00 03/24/25 16:00 03/23/25 06:53 Narrative Exam GENERAL APPEARANCE: Well hydrated, well-nourished in no acute distress. HEENT: Normocephalic, atraumatic, extraocular movements intact. Pupils: Equal reacting to light NECK: Supple, no JVD or bruits. CARDIOVASULAR: Heart: S1, S2 heard, regular without S3-S4 or murmur no rubs or gallops. LUNGS/CHEST: Clear to auscultation bilaterally. No rails, rhonchi, or wheezing. Normal inspection. ABDOMEN: nontender, with normal bowel sounds, S/P laparotomy EXTREMITIES: Normal inspection and palpation. No edema, clubbing or cyanosis. SKIN: Warm and dry without rashes. Normal inspection. MUSCULOSKELETAL: No cervical, thoracic, lumbar or midline bony tenderness. Normal inspection. NEURO: Alert, awake and oriented x3. Cranial nerves: II through XII grossly intact. Speech and language: Normal with no dysarthria or dysphasia. Motor system: Tone and bulk: Normal: Strength: 5 out of 5 in all 4 extremities; No pronator drift noted. Deep tendon reflexes: 2+ bilaterally symmetrical. Plantar reflex: Downgoing bilaterally. Sensory system: Intact to pinprick sensation bilaterally. Coordination: Intact to [id number] and zlzq-[id number] test bilaterally. No ataxia, no dysmetria, or dysdiadochokinesia noted. No intention tremors noted. Gait: not tested. No signs of meningeal irritation noted. PSYCHIATRIC: Normal mood and affect. Objective Labs 03/24/25 04:50 03/24/25 04:50 Labs: Laboratory Results - last 24 hr 03/24/25 03/24/25 04:50 14:30 WBC 9.9 RBC 2.70 L Hgb 8.3 L Hct 25.7 L MCV 95 MCH 30.7 MCHC 32.3 RDW Std Deviation 57.1 H Plt Count 322 D Neut % (Auto) 85 H Lymph % (Auto) 7 L [place] % (Auto) 6 Eos % (Auto) 0 Baso % (Auto) 0 Neut # (Auto) 8.4 H Lymph # (Auto) 0.7 L [place] # (Auto) 0.6 Eos # (Auto) 0.0 Baso # (Auto) 0.0 Immature Gran # (Auto) 0.07 H Absolute Nucleated RBC 0.00 Immature Gran % 1 H Nucleated RBC % 0 Sodium 142 Potassium 4.3 Chloride 106 Carbon Dioxide 25.3 Anion Gap 11 BUN 25 H Creatinine 1.5 H Estim Creat Clear Calc 43.1 L eGFR 47 L BUN/Creatinine Ratio 17 Glucose 160 H Calculated Osmolality 290 Calcium 8.7 Corrected Calcium 9.4 Phosphorus 3.9 Magnesium 2.0 Albumin 3.1 L Ur Collection Type Clean Catch Urine Color Colorless A Urine Clarity Clear Urine pH 6.0 Ur Specific [place] 1.006 Urine Protein Negative Urine Glucose (UA) Negative Urine Ketones Negative Urine Blood Negative Urine Nitrite Negative Urine Bilirubin Negative Urine Urobilinogen (Auto) Negative Ur Leukocyte Esterase Negative Urine RBC 1 Urine WBC < 1 Ur Squamous Epith Cells < 1 Urine Bacteria None ABG Interpretation ABG results: 03/05/25 03/09/25 03/12/25 13:17 23:55 15:20 ABG pH 7.45 7.46 H ABG pCO2 27 L 36 ABG pO2 122 H 88 D ABG HCO3 18 L 25 ABG O2 Saturation 100 H 99 H ABG Base Excess -5 L 1 VBG pH 7.39 VBG pCO2 36 VBG pO2 31 VBG Base Excess -3 03/12/25 15:53 ABG pH ABG pCO2 ABG pO2 ABG HCO3 ABG O2 Saturation ABG Base Excess VBG pH 7.49 VBG pCO2 34 L VBG pO2 94 H VBG Base Excess 2 Assessment & Plan Assessment and plan (1) Cerebrovascular accident: Status: Acute (2) Atrial fibrillation: Status: Chronic (3) Hypertension: Status: Chronic (4) Severe anemia: Status: Acute (5) GI (gastrointestinal bleed): Status: Acute (6) Altered mental status: Status: Acute (7) Acute kidney injury: Status: Acute Additional Assessment & Plan Additional Plan: 1) Cerebrovascular accident: Status: Acute Assessment and plan: Secondary to cardioembolic phenomena from atrial fibrillation Resume Xarelto low dose with close monitoring for GI bleeding (2) Atrial fibrillation: Status: Chronic Assessment and plan: Continue with rate control (3) Hypertension: Status: Chronic Assessment and plan: Continue with current blood pressure medications (4) Severe anemia: Status: Acute Assessment and plan: continue to monitor hemoglobin and hematocrit closely and consider blood transfusion as needed 5) GI bleeding: Suspect small intestinal pathology, waiting for transfer
[2025-03-25] VITALS (14 sets, daily range): BP systolic 149–166; BP diastolic 94–104; PULSE 72–103; RESP 16–98; TEMP 36.1–37; O2SAT 92–100; BMI 26.5
[2025-03-25 05:51] LABS: Basophils # (Auto) 0.0 Thou/mm3 (0.0-0.2); Basophils % (Auto) 1 % (0-2.5); Eosinophils # (Auto) 0.0 Thou/mm3 (0.0-0.5); Eosinophils % (Auto) 0 % (0-10); Hematocrit 26.8 % (41.0-53.0); Immature Granulocytes Auto 0.07 Thou/mm3 (0.00-0.00); Lymphocytes # (Auto) 0.9 Thou/mm3 (1.0-4.8); Lymphocytes % (Auto) 10 % (10-50); Mean Corpuscular HGB Conc 32.5 g/dl (31.0-37.0); Mean Corpuscular Hemoglobin 30.5 pg (25.0-35.0); Mean Corpuscular Volume 94 fL (80-100); Monocytes # (Auto) 0.7 Thou/mm3 (0.0-0.8); Monocytes % (Auto) 8 % (0-12); Neutrophils # (Auto) 6.6 Thou/mm3 (1.8-7.7); Neutrophils % (Auto) 80 % (37-80); Nucleated Red Blood Cell # 0.00 Thou/mm3 (0.00-0.00); Nucleated Red Blood Cell % 0 /100 WBC (0); Platelet Count 330 Thou/mm3 (140-440); RDW Standard Deviation 56.1 fL (35.1-43.9); Red Blood Count 2.85 Miln/mm3 (4.50-5.90); White Blood Count 8.3 Thou/mm3 (3.8-10.6)
[2025-03-25 05:52] LABS: Hemoglobin 8.7 g/dL (13.5-16.0)
[2025-03-25 06:16] LABS: Albumin, Serum 3.3 gm/dL (3.4-4.8); Anion Gap 11 (7-16); BUN/Creatinine Ratio 19 Ratio (12-20); Blood Urea Nitrogen 28 mg/dL (9-23); Calcium 8.8 mg/dL (8.3-10.6); Calcium (Corrected) 9.4 mg/dL (8.5-10.1); Carbon Dioxide 24.3 mMol/L (20.0-31.0); Chloride 106 mMol/L (98-107); Creatinine (Component) 1.5 mg/dL (0.6-1.3); Estimated Creatinine Clearance 43.1 mL/min (>60); Glucose 138 mg/dL (74-106); Magnesium 1.8 mg/dL (1.6-2.6); Osmolality,Calculated 288 (275-295); Phosphorous 3.4 mg/dL (2.4-5.1); Potassium 4.4 mMol/L (3.4-5.1); Sodium 141 mMol/L (136-145); eGFR 47 See Note
[2025-03-25] MEDS: IPRATROPIUM RT 0.5 MG/ 2.5 ML NEBU INH ×2 (06:41→15:00)
[2025-03-25] MEDS: LEVALBUTEROL RT 1.25 MG/0.5 ML NEBU INH ×2 (06:41→15:00)
[2025-03-25] MEDS: FUROSEMIDE INJ 10 MG/ML VIAL 2 ML 20 MG IVP (08:23)
[2025-03-25] MEDS: METOPROLOL SUCCINATE XL 25 MG TABCR 50 MG PO ×2 (08:24→10:23)
[2025-03-25] MEDS: AMIODARONE HCL 200 MG TABLET PO ×2 (08:24→20:48)
[2025-03-25] MEDS: PANTOPRAZOLE 40 MG TABLET PO ×2 (08:25→20:48)
[2025-03-25] MEDS: THIAMINE 100 MG TABLET PO (08:25)
[2025-03-25] MEDS: Magnesium Sulfate 4 GM Ivpb 4 GM/50 ML BAG IV (08:28)
--- NOTE | 2025-03-25 09:18 | PC.SS ---
Follow up note: Pt is pending higher level of care transfer.
--- NOTE | 2025-03-25 10:11 | ESPR_ITS ---
<Statement entered by Jessica Kelly MD - 03/25/25 17:00> Patient was seen and examined at bedside. I agree on the assessment and plan on this note as documented by resident Jhon Levine DO PGY1. 79-year-old male with past medical history as below, hemoglobin has been stable, last bowel movement yesterday no blood. Discussed with gastroenterology recommended against starting anticoagulation for now. Patient is status post bowel perforation status post cecal resection with ascending ileocolostomy status post day 14. Will increase metoprolol succinate to 100 mg daily, will stop steroids as no current symptoms of flare. Patient accepted at [facility] for small bowel bleed workup, pending bed per transfer nurse. Case discussed with attending Dr Shantelle Rae MD PGY-2 Documentation for date of: 03/25/25 Subjective Subjective Interval history: Overnight events: No acute events overnight. Patient was seen and examined at bedside. AM vitals and labs reviewed. Patient has no complaints at this time. Patient's thought that patient would have anticoagulation resumed, but it was explained to the the patient and his that Dr. Bauer does not feel comfortable resuming anticoagulation at this time given bleed in small bowel. Hemoglobin increased to 8.7 and Cr stable at 1.5 Stopped prednisone given resolution of PMR flare. Increased metoprolol to 100 mg daily given elevated BP. Review of systems otherwise negative except for what is mentioned above. Exam Vital Signs Temp Pulse Resp BP Pulse Ox O2 Del Method O2 Flow Rate 97.1 F 87 20 166/101 H 96 Room Air 6 03/25/25 07:50 03/25/25 08:24 03/25/25 07:50 03/25/25 08:24 03/25/25 07:50 03/25/25 07:50 03/23/25 06:53 Narrative Exam Physical Exam: General: Alert, no acute distress. Skin: Warm, intact. Head: Normocephalic, atraumatic. Eye: Normal conjunctiva, PERRL. Cardiovascular: Regular rate and irregular rhythm, soft systolic murmur best heard over tricuspid/mitral region, +S1/S2. Respiratory: Lungs are clear to auscultation, respirations unlabored, no crackles, no wheezing. Gastrointestinal: Soft, nontender, non-distended. No guarding or rebound tenderness. Extremities: 1+ BLE edema worse on right leg, no cyanosis, no clubbing. Left arm and right arm dark discoloring present, non-tender. Neuro: No focal deficits observed. Conversant, moving all extremities. No overt cerebellar signs/incoordination. Objective Labs 03/25/25 04:52 03/25/25 04:52 Labs: Laboratory Results - last 24 hr 03/24/25 03/25/25 14:30 04:52 WBC 8.3 RBC 2.85 L Hgb 8.7 L Hct 26.8 L MCV 94 MCH 30.5 MCHC 32.5 RDW Std Deviation 56.1 H Plt Count 330 Neut % (Auto) 80 Lymph % (Auto) 10 [place] % (Auto) 8 Eos % (Auto) 0 Baso % (Auto) 1 Neut # (Auto) 6.6 Lymph # (Auto) 0.9 L Graham # (Auto) 0.7 Eos # (Auto) 0.0 Baso # (Auto) 0.0 Immature Gran # (Auto) 0.07 H Absolute Nucleated RBC 0.00 Immature Gran % 1 H Nucleated RBC % 0 Sodium 141 Potassium 4.4 Chloride 106 Carbon Dioxide 24.3 Anion Gap 11 BUN 28 H Creatinine 1.5 H Estim Creat Clear Calc 43.1 L eGFR 47 L BUN/Creatinine Ratio 19 Glucose 138 H Calculated Osmolality 288 Calcium 8.8 Corrected Calcium 9.4 Phosphorus 3.4 Magnesium 1.8 Albumin 3.3 L Ur Collection Type Clean Catch Urine Color Colorless A Urine Clarity Clear Urine pH 6.0 Ur Specific [place] 1.006 Urine Protein Negative Urine Glucose (UA) Negative Urine Ketones Negative Urine Blood Negative Urine Nitrite Negative Urine Bilirubin Negative Urine Urobilinogen (Auto) Negative Ur Leukocyte Esterase Negative Urine RBC 1 Urine WBC < 1 Ur Squamous Epith Cells < 1 Urine Bacteria None ABG Interpretation ABG results: 03/05/25 03/09/25 03/12/25 13:17 23:55 15:20 ABG pH 7.45 7.46 H ABG pCO2 27 L 36 ABG pO2 122 H 88 D ABG HCO3 18 L 25 ABG O2 Saturation 100 H 99 H ABG Base Excess -5 L 1 VBG pH 7.39 VBG pCO2 36 VBG pO2 31 VBG Base Excess -3 03/12/25 15:53 ABG pH ABG pCO2 ABG pO2 ABG HCO3 ABG O2 Saturation ABG Base Excess VBG pH 7.49 VBG pCO2 34 L VBG pO2 94 H VBG Base Excess 2 Quality Measures Quality Measures VTE prophylaxis Advance care planning discussed with:: patient and spouse Assessment & Plan Assessment Current Active Medications: Generic Name Dose Route Start Last Admin Trade Name Freq PRN Reason Stop Dose Admin Acetaminophen 650 mg 03/05/25 15:28 03/22/25 18:41 Acetaminophen 325 Mg Tablet PO 04/04/25 15:27 650 mg Q6H PRN Administration Fever >101.5 or pain (1-3) Hydrocodone Bitart/Acetaminophen 1 tab 03/22/25 14:29 Hydrocodone/Apap 5/325 Tablet PO 03/27/25 14:28 Q4HR PRN PAIN SCALE 4-10(Mod-Sev Amiodarone HCl 200 mg 03/14/25 21:30 03/25/25 08:24 Amiodarone Hcl 200 Mg Tablet PO 04/13/25 21:29 200 mg BID CLAUDE Administration Atorvastatin Calcium 40 mg 03/17/25 21:00 03/24/25 20:33 Atorvastatin Calcium 20 Mg Tablet PO 04/16/25 20:59 40 mg HS CLAUDE Administration Furosemide 20 mg 03/24/25 12:00 03/25/25 08:23 Furosemide Inj 10 Mg/Ml Vial 2 Ml IVP 04/23/25 11:59 20 mg QDAY CLAUDE Administration Magnesium Sulfate 4 gm in 50 mls @ 12.5 mls/hr 03/25/25 08:00 03/25/25 08:28 Magnesium Sulfate Ivpb IV 03/25/25 11:59 12.5 mls/hr X1 ONE Administration Ipratropium [place] 0.5 mg 03/12/25 15:00 03/25/25 06:41 Ipratropium Rt 0.5 Mg/ 2.5 Ml Nebu INH 04/11/25 14:59 0.5 mg Q8HRRT CLAUDE Administration Labetalol HCl 10 mg 03/13/25 22:39 03/14/25 20:56 Labetalol Inj 5 Mg/Ml Vial 20 Ml IVP 04/12/25 09:59 10 mg Q4HR PRN Administration Sbp > 170 or DBP > 120 Levalbuterol HCl 1.25 mg 03/12/25 14:00 03/25/25 06:41 Levalbuterol Rt 1.25 Mg/0.5 Ml Nebu INH 04/11/25 13:59 1.25 mg Q8HR CLAUDE Administration Metoprolol Succinate 100 mg 03/26/25 09:00 Metoprolol Succinate Xl 25 Mg Tabcr PO 04/25/25 08:59 QDAY CLAUDE Ondansetron HCl 4 mg 03/05/25 13:06 Ondansetron Inj 2 Mg/Ml Inj 2 Ml IVP 04/04/25 13:05 Q4HR PRN NAUSEA OR VOMITING Pantoprazole Sodium 40 mg 03/23/25 21:00 03/25/25 08:25 Pantoprazole 40 Mg Tablet PO 04/22/25 20:59 40 mg BID CLAUDE Administration Protocol Pharmacy Consult 1 each 03/14/25 05:23 Pharmacy Renal Dose Adjustment 1 Ea XX 04/13/25 05:22 PRN PRN CONSULT Sodium Chloride 3 ml 03/12/25 10:45 03/16/25 14:14 Sodium Chloride Rt Aleena 0.9% 3 Ml Nebu INH 04/11/25 10:44 3 ml PRN PRN Administration SOLN Thiamine HCl 100 mg 03/17/25 13:00 03/25/25 08:25 Thiamine 100 Mg Tablet PO 04/16/25 12:59 100 mg QDAY CLAUDE Administration Plan Devan Rios is an 79M pmhx significant for A-fib on Xarelto, hypertension, RA, rheumatoid arthritis, PMR, and CKDIIIa who presented to [facility] ED on 03/05 for generalized weakness and inability to walk, admitted for upper and lower GIB, course complicated by ischemic CVAs, AMS and bowel perforation requring emergent surgery. #Suspected small intestine GI bleed / #Angiodysplasias of GI tract #Upper GI bleed and lower GI bleed #Symptomatic anemia Patient was brought to ED due to generalized fatigue and difficulty waking on the morning of 03/05 with melena started 2-3 weeks ago. Admission H&H 12/01/17.2 s/p 2 prbc on 03/05 and 2 more pRBC on 03/07 with stabilization of H&H. Initial EGD showed angiodysplastic bleeding in gastric body and gastric fundus, requiring cautery and clipping. Repeat EGD 03/07, which showed no additional bleeding Colonoscopy planned for 03/08, delayed to 03/09, which showed moderate diverticulosis in sigmoid and descending colon, and multiple bleeding colonic angiodysplastic lesions that were treated with argon plasma coagulation Ddx for multiple angiodysplasias possibly secondary to subtherapeutic anticoagulation on Xarelto 15 mg instead of Xarelto 20 mg causing multiple emboli with possible embolisms to GI tract Plan: - GI consulted, recs appreciated - Patient to follow-up with Dr. Bauer, GI, and referral to perform capsule endoscopy - GI performed EGD 03/20, which did not show additional signs of bleeding in stomach - Hold Xarelto given active GI bleed - NM GI scan ordered, shows focal isotope accumulation in stomach, but given clear EGD recently, the true location of the bleeding is likely in the small bowel close to the stomach - Transfer process started to facility of higher level of care for suspected small intestine bleed given after a total of 11 units of pRBC transfused (dates: 03/05, 03/05, 03/07, 03/07, 03/12, 03/13, 03/18, 03/19, 03/20, 03/21, 03/22) and FFP with platelets (1 unit, 03/22) but hemoglobin still labile; Dr. Bauer, GI, and Dr. Acharya, general surgery, are in agreement that patient requires transfer as GI bleed is most likely in small intestine given EGD negative for bleeding (03/07 and 03/20) and EGD resolved initial bleeding in stomach (03/06) and colonoscopy resolved bleeding in colon (03/09). Patient is unable to tolerate additional colonscopy given recent resection of cecum. #Polymyalgia rheumatica flare #History of rheumatoid arthritis Patient has a known history of PMR. Patient is familiar with ESR and steroid tapering. It was noted on 03/22 that the patient had significant pain to touch all over his body and especially at his right knee. Normally, the patient takes Humira for management of PMR and has not had a flare in quite some time. Given that the patient is acutely ill and has gone through many stressful events, his PMR most likely flared up as a result. ESR 44 on 03/24. - Prednisone 15 mg daily (03/22-03/25) - Stopped prednisone daily given resolution of PMR symptoms #A-fib with RVR, rate controlled, on Xarelto Patient has a history of atrial fibrillation and sees grade checker Dr. Colon for management. Patient is currently on Xarelto and digoxin. Asked pharmacy about digoxin dosing and they confirmed 0.125 mg daily while patient's family states that the patient takes 0.125 mg Friday and Friday. Contacted Dr. Colon for confirmation, and he stated that the patient was okay taking 0.125 mg Friday. Patient's uncontrolled rate a-fib RVR is likely 2/2 presence of likely suspected SBO vs ileus CHADS-VASC score 4 (stroke risk 4.8% per year) HAS-BLED score 3 (bleed risk 5.8%, patient is at high risk for major bleeding) Plan: - Stopped patient's home digoxin - Consulted cardiology, Dr. Colon, recs appreciated - Amiodarone 200mg BID - Metoprolol XL 100 mg daily - Xarelto held given GI bleed #CHF (EF 55% 2024) Patient does not have a documented history of CHF, but patient takes furosemide 20 mg p.o. daily at home. Echocardiogram done on 04/30/2018 showed EF of 50% with moderate mitral regurgitation. Plan: ? Will hold patient's home furosemide given suspected SBO ? Strict ins and outs and daily weights ? Echocardiogram 03/11 showed negative bubble study, EF 55%, severely increased left atrial volume, aortic valve sclerosis without stenosis, mild mitral regurgitation, mild aortic regurgitation, mild tricuspid regurgitation, no thrombi. - Lasix 20 mg daily #VANNA on CKD likely prerenal In the ED, the patient had a BUN of 85, creatinine of 2.1, and GFR of 31. On chart review, patient has CKDIII with baseline Cr 1.4-1.7. VANNA likely 2/2 acute loss of blood due to GI bleed, resulting in decreased blood flow to the kidneys, which resolved 03/09 03/12 Cr increased to 1.8, likely 2/2 to suspected SBO. 03/18 Cr increased to 2.0 from 1.7, likely 2/2 dehydration has been NPO and water restriction Plan: ? Renally dose medications ? Avoid nephrotoxic medications #Bowel perforation, serosal tear, cecum #status post cecum resection 03/12/25 #s/p surgical site closure 03/17/25 #Pneumoperitoneum c/f bowel perforation Overnight on 03/11, patient's abdomen acutely distended and tense c/f SBO vs ileus. Repeat KUB showed high grade mechanical SBO pattern. Patient is unable to communicate if he is passing gas, AOx2 to person and time only. CTAP showed pneumoperitoneum, suspicious for ischemic bowel including right colon and small bowel, significantly distended small bowel loops consistent with obstruction Plan: - Continue oral medication - General surgery Dr. Smith consulted, performed exploratory laparotomy, found serosal tear in cecum, that was repaired with resection of the cecum and the ascending colon and ilio ascending colostomy - Closure of incision 03/17 - Resume regular diet - Piperacillin/tazobactam (03/10-03/17) per ID recs #DVT ruled out #Bilateral lower extremity swelling Patient noted to have bilateral lower extremity swelling on 03/20. Patient also has pain in right knee that is noted to be warmer than left knee. BLE swelling is most likely due to limited mobility and frequent transfusions the patient is receiving. - US bilateral lower extremity ordered, negative for DVT - XR right knee ordered, shows osteopenia, small compartment effusion, and advanced tricompartment osteoarthritis - Lasix 20 mg one time dose ordered 03/23 #Acute encephalopathy, likely multifactorial 2/2 #Aspiration pneumonia #Fever, improving Presented with fatigue that had sudden onset on 03/05 in the morning likely 2/2 symptomatic anemia. Rapid response x2 were called 03/08 and 03/10 for fever and acute AMS. Since, patient has had fluctuations of mental status return to baseline, then becoming altered. Patient had a fever on 03/08 initially, which has become more frequent over time. Tmax 102.4. Patient did have a sudden spike in WBC on second rapid response without leukocytosis, however this WBC quickly resolved back to baseline about 3 hours later. On 03/11 nursing recorded episode of vomiting, where patient likely aspirated as morning of 03/12, patient desaturated to 93% requiring 4L O2 oxymask. Acute encephalopathy likely multifactorial iso aspiration PNA and stroke. Fever ddx includes L arm cellulitis, meningitis, delayed nonhemolytic transfusion reaction, febrile nonhemolytic transfusion reaction, however improving on antibiotics. Dixon test neg, digoxin levels 0.7, folate and B12 wnl s/p B12 injection 03/09, T4 wnl, CRP and ESR wnl, cocci IgM and IgG neg, BCx and UCx NGTD Plan: - Piperacillin/tazobactam (03/10-03/17) - Scheduled Duonebs q8h - Neurology consulted, appreciate recommendations - Infectious disease consulted, appreciate recommendations, abx as above - Aspiration precautions elevate head of bed at 30 degrees - Patient passed swallow re-evaluation by speech therapy, recommends chopped diet #Ischemic CVA, embolic (frontal lobe, parietal lobe, basal ganglia, posterior left temporal lobe) #History of TIA #Transient aphasia Patient has hx of atrial fibrillation on Xarelto which was held on admission 03/05 due to GIB. Due to episodes of altered mental status starting 03/08, the patient had a code stroke called. CT head without contrast and CTA head and neck were negative for stroke. Neurology was consulted, and at the time CT head and CTA head and neck were negative for acute strokes. MRI was not recommended at that time due to concerns of an underlying metabolic encephalopathy. Received Xarelto 15 mg 03/10 and 03/11 03/11 MRI showed multiple embolic type acute infarcts in frontal, parietal lobes, basal ganglia and posterior left temporal lobe Plan: - Xarelto held given GI bleed - Lipitor 40 mg nightly resumed - Neurology consulted, recs appreciated #Primary Hypertension Patient has a history of hypertension. Patient takes benazepril 40 mg daily and clonidine 0.2 mg 3 times daily at home. Plan: - Will hold patient's home antihypertensives of benazepril, clonidine, furosemide - Will monitor blood pressure closely - Metoprolol XL 100 mg daily #Vitamin B12 deficiency Patient was noted to have B12 of 94 on 03/06. - B12 1,000 mcg injection, repeat B12 03/14 noted to be 1484. #Vitamin B1 deficiency Patient noted to have vitamin B1 of 6 as measured on 03/11. Might potentially be contributing to episodes of AMS in the patient. Patient does have a history of frequent alcohol consumption. - Thiamine supplement 100 mg daily DVT Prophylaxis: N/A GI Prophylaxis: Protonix Bowel: N/A Diet: Cardiac Justin: N/A Lines: Peripheral IV Antibiotics: N/A Code Status: FULL Reason for Hospitalization: GI bleed Other Barriers to Discharge: Labile H&H, suspected small intestine bleeding Patient plan of care was discussed with attending physician Dr. Cutler and senior resident Dr. Kelly (PGY-2) Jhon Levine DO Internal Medicine PGY-1 Attending Provider Attestation/Addendum I, Shantelle Cutler DO, attest that I was physically present for the jara portions of the service and evaluated the patient with the resident and I reviewed and discussed the case with the resident and agree with the resident's findings and plans of care as documented above Patient seen and evaluated this AM. He states he is doing well, no acute events overnight. BP remains elevated. Will increase metoprolol. Patient had pain in joints concerning for PMR flare, improved with prednisone. WIll DC after today's dose due to improvement and concern for exacerbation of GI bleed. Pending transfer to [facility] otherwise. Pt remains stable for transfer.
--- NOTE | 2025-03-25 16:46 | ESDS_ITS ---
<Statement entered by Shantelle Cutler DO - 03/25/25 16:52> I, Shantelle Cutler DO, attest that I was physically present for the jara portions of the service and evaluated the patient with the resident and I reviewed and discussed the case with the resident and agree with the resident's findings and plans of care as documented above Planned Discharge Date 03/25/25 DS: Providers Provider Date of admission: 03/05/25 15:28 Primary care physician: Carrie Barakat MD Admitting Provider: Nathan Ross MD Attending Provider on Admission: Shantelle Cutler DO Consults: 03/05/25 13:06 Consult to Neurology / Tele-Neurology Routine Comment: Consulting Provider: [facility] 03/05/25 14:37 Consult to Gastroenterology Stat Comment: Consulting Provider: Maritza Bauer 03/05/25 15:34 Referral Physical Therapy Routine Comment: Physician Instructions: Referral Speech Therapy Routine Comment: 03/07/25 10:06 Consult to General Surgery Stat Comment: AVM, GI Consulting Provider: Ni Garcia 03/10/25 13:52 Consult to Neurology / Tele-Neurology Stat Comment: Confusion Consulting Provider: Irvin Li 03/11/25 08:40 Consult to Infectious Diseases Stat Comment: fevers Consulting Provider: Osito Zapien 03/11/25 10:10 Consult to Cardiology Routine Comment: Afib and CHF Consulting Provider: Jose Colon 03/12/25 11:01 Consult to General Surgery Stat Comment: SBO Consulting Provider: Kwesi Acharya 03/13/25 11:32 Referral Wound Care Routine Comment: 03/13/25 12:36 Referral Speech Therapy Urgent Comment: 03/21/25 07:56 Referral - [employer] Stat Service Needed for Transfer: Gastroenterology Addl Comments:: Transfer for small intestine bleed workup Attending Provider on DC: Shantelle Cutler DO Discharging Provider: RESIDENT Dev Anticipated date of discharge: 03/25/25 DS: Diagnosis Problem List Completed Was Problem List Reviewed/Reconciled?: Yes Hospital Course Hospital Course Hospital course: This patient is an 79-year-old male with a history of atrial fibrillation on Xarelto, hypertension, rheumatoid arthritis, and polymyalgia rheumatica on Humira who presented to [facility] ED on 03/05 for generalized weakness, AMS, and inability to walk. In the ED, patient was found to have hemoglobin of 5.7 and was admitted for GI bleed workup. Prior to coming to ED, patient was having dark tarry stools over the past 2 to 3 weeks, however did not notice any increased fatigue until the morning of 03/05. Pt was transfused 2 units pRBC and held patient's home Xarelto. GI was consulted for GI bleed workup, and EGD was performed on 03/06, which showed 2 bleeding angiodysplastic lesions in the stomach, one treated with bipolar cautery and the other had a clip placed. However, on 03/07 in the morning, routine lab showed hemoglobin of 5.5, which prompted another transfusion of 2 units of pRBC. Due to concerns of further bleeding, a follow-up EGD was performed on 03/07, which showed no further bleeding in the stomach. At this point, there was concern for bleeding in the colon, prompting a colonoscopy which was performed on 03/09, which found multiple bleeding colonic angiodysplastic lesions along the proximal ascending colon, which was treated with argon plasma coagulation. Of note, on 03/08, the patient was noted to have episodes of fever, tachycardia, hypertension, and altered mental status, stroke alert was called, neurology was consulted. CT of head was negative for acute hemorrage and mass affect. Pt's mentation imporved with the neurology visit therefore the neurologist did not recommend MRI at that time.These episodes would come and go in a waxing and waning pattern for about a week. Due to the presentation and negative imaging, non-focal deficits, and waxing and waning presentation, MRI brain was not pursued until 03/11 after exhaustive search for metabolic and infectious causes for these episodes, including ID consultation. The MRI brain showed multiple tiny embolic type acute infarcts in the frontal and parietal lobes, posterior left temporal lobe, and basal ganglia. On 03/12, general surgery was consulted for abdominal distention with pain, and possible small bowel obstruction, however it was noted on the x-ray after NG tube placement that the patient had free air under the diaphragm. The patient was taken for surgery on the same day for an exploratory laparotomy, which found perforation of the cecum and localized peritonitis. The patient had resection of the cecum with an ascending colon and ileal ascending colostomy. Incision site was closed except further the midpoint which was left open at the time to prevent infection and allow for drainage if infection were to develop. The patient tolerated the procedure without complication and had a mostly uncomplicated course of recovery except for some minor bleeding at the surgical site, which led to closure of the remaining surgical site on 03/17. Xarelto was resumed on 03/17 as the patient had no overt signs of new GI bleed and was tolerating the surgical site closure well. However, it was noted that the patient's hemoglobin had been slowly creeping down since 03/13, which prompted the medicine team to repeat H&H on 03/18 in the afternoon, which showed a hemoglobin of 6.9. As a result, the patient received a unit of blood on 03/18 and Xarelto was held. The patient remained asymptomatic, but did start developing dark tarry stools on 03/19 in the evening and continued to consistently have dark, tarry stools with some red blood and blood clots afterwards. Due to concern for further bleeding, the patient received another unit of PRBC on 03/19, 03/20, 03/21, and 03/22 (with FFP and platelets transfused on 03/22) as the patient was unable to maintain his hemoglobin. EGD performed on 03/20 showed no further bleeding in the stomach, and colonoscopy was deferred as the patient had a recent cecal resection. At this point, the evidence points to a small intestine bleed, likely angiodysplastic as the bleeding was in his stomach and colon, and requires higher level of care for management as the patient has having an active bleed that cannot be stabilized at this facility. Patient is s/p 11 pRBCs transfusions during his hospital stay, 1 bag of FFP and 1 bag of Platelets. Patient is requiring a transfer to higher level tertiary center for possible investigation such as capsule endoscopy and intervention of possible small intestinal bleed that is not available here at our facility. PRBC transfusion dates: 03/05, 03/05, 03/07, 03/07, 03/12, 03/13, 03/18, 03/19, 03/20, 03/21. 03/22 FFP & platelet transfusion date: 03/22 EGD dates: 03/06, 03/07, 03/20 Colonoscopy: 03/09 Cecum resection: 03/12 Surgical site closure: 03/17 Hospital Diagnoses: #Suspected small intestine GI bleed #Angiodysplasias of GI tract #Upper and lower GI bleed #Pneumoperitoneum, resolved #Bowel perforation, serosal tear of cecum s/p resection and ascending colostomy #Symptomatic anemia #Polymyalgia rheumatica flare #History of rheumatoid arthritis #VANNA on CKD, likely prerenal #DVT ruled out #Acute encephalopathy, likely multifactorial #Ischemic CVA, embolic (frontal lobe, parietal lobe, basal ganglia, posterior left temporal lobe) #Transient aphasia #A-fib with RVR, on Xarelto #HFpEF (EF 55% 2024) #Primary hypertension #Vitamin B12 deficiency #Vitamin B1 deficiency Patient plan of care was discussed with attending physician Dr. Chelly Levine, PGY-1 Time Spent with Patient Time attestation: Total time spent providing and/or coordinating discharge services: Time spent: Greater than 30 minutes Exam Vital Signs Temp Pulse Resp BP Pulse Ox O2 Del Method O2 Flow Rate 97.1 F 79 18 166/101 H 100 Room Air 6 03/25/25 07:50 03/25/25 15:00 03/25/25 15:00 03/25/25 10:23 03/25/25 15:00 03/25/25 07:50 03/23/25 06:53 Narrative Exam Physical Exam: General: Alert, no acute distress. Skin: Warm, intact. Head: Normocephalic, atraumatic. Eye: Normal conjunctiva, PERRL. Cardiovascular: Regular rate and irregular rhythm, soft systolic murmur best heard over tricuspid/mitral region, +S1/S2. Respiratory: Lungs are clear to auscultation, respirations unlabored, no crackles, no wheezing. Gastrointestinal: Soft, nontender, non-distended. No guarding or rebound tenderness. Extremities: 1+ BLE edema worse on right leg, no cyanosis, no clubbing. Left arm and right arm dark discoloring present, non-tender. Neuro: No focal deficits observed. Conversant, moving all extremities. No overt cerebellar signs/incoordination. Discharge Plan Plan Patient Disposition: Xfer Other Facility Pt Being Transferred to: [facility] Disposition Comment: [facility] Patient condition on transfer: Stable Prescriptions/Referrals Prescriptions/Med Rec: No Action clonidine HCl 0.2 mg Tablet 0.2 mg PO TID benazepril 40 mg Tablet 40 mg PO QDAY Xarelto 15 mg Tablet 15 mg PO QDAY atorvastatin 40 mg tablet 40 mg PO HS Qty: 30 0RF digoxin 125 mcg (0.125 mg) tablet 0.125 mg PO QDAY Patient Comments: TAKE 1 TABLET BY MOUTH EVERY DAY furosemide 20 mg tablet 20 mg PO QDAY Patient Comments: TAKE 1 TABLET BY MOUTH EVERY DAY Referrals: Carrie Barakat MD [Primary Care Provider] - Patient/Caregiver Discharge Instructions Print Language: Portuguese Stand Alone Forms: Dede Award Info., Patient Portal Info Letter Quality Discharge Quality Measures VTE prophylaxis
--- NOTE | 2025-03-25 16:55 | ESPR_ITS ---
Documentation for date of: 03/25/25 Subjective Subjective Interval history: Patient evaluated Hemoglobin hematocrit 8.9 and 26.8 Still waiting for a bed at [facility] Exam Vital Signs Temp Pulse Resp BP Pulse Ox O2 Del Method O2 Flow Rate 97.1 F 79 18 166/101 H 100 Room Air 6 03/25/25 07:50 03/25/25 15:00 03/25/25 15:00 03/25/25 10:23 03/25/25 15:00 03/25/25 07:50 03/23/25 06:53 Objective Labs 03/25/25 04:52 03/25/25 04:52 Labs: Laboratory Results - last 24 hr 03/25/25 04:52 WBC 8.3 RBC 2.85 L Hgb 8.7 L Hct 26.8 L MCV 94 MCH 30.5 MCHC 32.5 RDW Std Deviation 56.1 H Plt Count 330 Neut % (Auto) 80 Lymph % (Auto) 10 Tillman % (Auto) 8 Eos % (Auto) 0 Baso % (Auto) 1 Neut # (Auto) 6.6 Lymph # (Auto) 0.9 L Tillman # (Auto) 0.7 Eos # (Auto) 0.0 Baso # (Auto) 0.0 Immature Gran # (Auto) 0.07 H Absolute Nucleated RBC 0.00 Immature Gran % 1 H Nucleated RBC % 0 Sodium 141 Potassium 4.4 Chloride 106 Carbon Dioxide 24.3 Anion Gap 11 BUN 28 H Creatinine 1.5 H Estim Creat Clear Calc 43.1 L eGFR 47 L BUN/Creatinine Ratio 19 Glucose 138 H Calculated Osmolality 288 Calcium 8.8 Corrected Calcium 9.4 Phosphorus 3.4 Magnesium 1.8 Albumin 3.3 L Impressions Impression: Small bowel bleed awaiting bed at [facility] ABG Interpretation ABG results: 03/05/25 03/09/25 03/12/25 13:17 23:55 15:20 ABG pH 7.45 7.46 H ABG pCO2 27 L 36 ABG pO2 122 H 88 D ABG HCO3 18 L 25 ABG O2 Saturation 100 H 99 H ABG Base Excess -5 L 1 VBG pH 7.39 VBG pCO2 36 VBG pO2 31 VBG Base Excess -3 03/12/25 15:53 ABG pH ABG pCO2 ABG pO2 ABG HCO3 ABG O2 Saturation ABG Base Excess VBG pH 7.49 VBG pCO2 34 L VBG pO2 94 H VBG Base Excess 2 Assessment & Plan A&P Narrative metoprolol increased to 50 BID HR 98 afib Stable hemodynamics Time Spent With Patient Time: Total time spent is greater than 50% in coordination of care (as documented) at patient's floor/unit and/or counseling patient:
[2025-03-25] MEDS: ATORVASTATIN CALCIUM 20 MG TABLET 40 MG PO (20:47)
--- NOTE | 2025-03-25 22:12 | PC.NURSE ---
Received phone call from [facility] cruise coordinator Chaz. Per Chaz the patient has a bed and would like the night nurse to give report to the night nurse (Vishal LARA) who will be taken care of him at [facility]. Per Chaz the patient's will be going to [facility] Room 5242 in wing 5N. Address: [address], [address] Accepting doctor- Dr. Victor Manuel Richard Nurse- Vishal Technical Report Writer number: [phone] Report on patient was given and was made aware to call back the [facility] cruise coordinator when we are able to obtain an ETA from ambulance. As per cruise coordinator cannot hold the bed overnight. ETA obtained from ambulance ([id number]) and [facility] cruise coordinator was made aware of ETA. Per [facility] coordinator, looking forward to seeing the patient.
--- NOTE | 2025-03-25 22:41 | ESPR_ITS ---
Documentation for date of: 03/25/25 Subjective Subjective Interval history: Patient was seen in Telemetry today, no more complaints today. He walked in the hallway with the physical therapist, denies any abdominal pain or bloody stool. Exam - Neurology Vital Signs Temp Pulse Resp BP Pulse Ox O2 Del Method O2 Flow Rate 98.4 F 81 22 H 155/100 H 96 Room Air 6 03/25/25 20:00 03/25/25 20:48 03/25/25 20:00 03/25/25 20:48 03/25/25 20:00 03/25/25 16:00 03/23/25 06:53 Narrative Exam GENERAL APPEARANCE: Well hydrated, well-nourished in no acute distress. HEENT: Normocephalic, atraumatic, extraocular movements intact. Pupils: Equal reacting to light NECK: Supple, no JVD or bruits. CARDIOVASULAR: Heart: S1, S2 heard, regular without S3-S4 or murmur no rubs or gallops. LUNGS/CHEST: Clear to auscultation bilaterally. No rails, rhonchi, or wheezing. Normal inspection. ABDOMEN: nontender, with normal bowel sounds, S/P laparotomy EXTREMITIES: Normal inspection and palpation. No edema, clubbing or cyanosis. SKIN: Warm and dry without rashes. Normal inspection. MUSCULOSKELETAL: No cervical, thoracic, lumbar or midline bony tenderness. Normal inspection. NEURO: Alert, awake and oriented x3. Cranial nerves: II through XII grossly intact. Speech and language: Normal with no dysarthria or dysphasia. Motor system: Tone and bulk: Normal: Strength: 5 out of 5 in all 4 extremities; No pronator drift noted. Deep tendon reflexes: 2+ bilaterally symmetrical. Plantar reflex: Downgoing bilaterally. Sensory system: Intact to pinprick sensation bilaterally. Coordination: Intact to [id number]-tiid-rasfa and [id number]-[id number]-[id number] test bilaterally. No ataxia, no dysmetria, or dysdiadochokinesia noted. No intention tremors noted. Gait: not tested. No signs of meningeal irritation noted. PSYCHIATRIC: Normal mood and affect. Objective Labs 03/25/25 04:52 03/25/25 04:52 Labs: Laboratory Results - last 24 hr 03/25/25 04:52 WBC 8.3 RBC 2.85 L Hgb 8.7 L Hct 26.8 L MCV 94 MCH 30.5 MCHC 32.5 RDW Std Deviation 56.1 H Plt Count 330 Neut % (Auto) 80 Lymph % (Auto) 10 Tyrrell % (Auto) 8 Eos % (Auto) 0 Baso % (Auto) 1 Neut # (Auto) 6.6 Lymph # (Auto) 0.9 L Tyrrell # (Auto) 0.7 Eos # (Auto) 0.0 Baso # (Auto) 0.0 Immature Gran # (Auto) 0.07 H Absolute Nucleated RBC 0.00 Immature Gran % 1 H Nucleated RBC % 0 Sodium 141 Potassium 4.4 Chloride 106 Carbon Dioxide 24.3 Anion Gap 11 BUN 28 H Creatinine 1.5 H Estim Creat Clear Calc 43.1 L eGFR 47 L BUN/Creatinine Ratio 19 Glucose 138 H Calculated Osmolality 288 Calcium 8.8 Corrected Calcium 9.4 Phosphorus 3.4 Magnesium 1.8 Albumin 3.3 L ABG Interpretation ABG results: 03/05/25 03/09/25 03/12/25 13:17 23:55 15:20 ABG pH 7.45 7.46 H ABG pCO2 27 L 36 ABG pO2 122 H 88 D ABG HCO3 18 L 25 ABG O2 Saturation 100 H 99 H ABG Base Excess -5 L 1 VBG pH 7.39 VBG pCO2 36 VBG pO2 31 VBG Base Excess -3 03/12/25 15:53 ABG pH ABG pCO2 ABG pO2 ABG HCO3 ABG O2 Saturation ABG Base Excess VBG pH 7.49 VBG pCO2 34 L VBG pO2 94 H VBG Base Excess 2 Assessment & Plan Assessment and plan (1) Cerebrovascular accident: Status: Acute (2) Atrial fibrillation: Status: Chronic (3) Hypertension: Status: Chronic (4) Severe anemia: Status: Acute (5) GI (gastrointestinal bleed): Status: Acute (6) Altered mental status: Status: Acute (7) Acute kidney injury: Status: Acute Additional Assessment & Plan Additional Plan: 1) Cerebrovascular accident: Status: Acute Assessment and plan: Secondary to cardioembolic phenomena from atrial fibrillation Resume Xarelto low dose with close monitoring for GI bleeding (2) Atrial fibrillation: Status: Chronic Assessment and plan: Continue with rate control (3) Hypertension: Status: Chronic Assessment and plan: Continue with current blood pressure medications (4) Severe anemia: Status: Acute Assessment and plan: continue to monitor hemoglobin and hematocrit closely and consider blood transfusion as needed 5) GI bleeding: Suspect small intestinal pathology, going to be transferred to [facility].
--- NOTE | 2025-03-25 23:21 | PC.NURSE ---
Ambulance arrived on unit to fern picker patient for transfer from [place] to [facility]. All belongings were accounted for and report given to ambulance personal. IV left on patient as he is being transfered to another hospital. Patient and family member are aware of being transferred to [facility]
== END 2025-03-25 23:19 | disposition other institution (70) | DRG 329 ==
LOC: SERX 14:38 → SERHOLD 15:52 → S2NX 20:48 → S2SX 03-13 13:01 → S2NX 03-14 09:38 → S2SX 03-15 11:25 → S2NX 03-15 11:26
PROVIDERS: Internal Medicine Infectious Disease; Specialist; Student in an Organized Health Care Education/Training Program; Surgery; Admitting Provider Internal Medicine; Emergency Provider Emergency Medicine; PCP Family Medicine; Visit Provider Internal Medicine
PROC: (CPT 43239; principal; 2025-03-06 15:30)
PROC: 0W3P8ZZ Control Bleeding in Gastrointestinal Tract, Via Natural or Artificial Opening Endoscopic (ICD-10-PCS; CPT 43239; principal; 2025-03-07 22:00)
PROC: 0DJD8ZZ Inspection of Lower Intestinal Tract, Via Natural or Artificial Opening Endoscopic (ICD-10-PCS; CPT 45378; principal; 2025-03-09 19:00)
PROC: 0D1B0ZK Bypass Ileum to Ascending Colon, Open Approach (ICD-10-PCS; CPT 49000; principal; 2025-03-12 18:00)
PROC: 0WQF0ZZ Repair Abdominal Wall, Open Approach (ICD-10-PCS; principal; 2025-03-17 12:00)
PROC: 0DJ08ZZ Inspection of Upper Intestinal Tract, Via Natural or Artificial Opening Endoscopic (ICD-10-PCS; CPT 43239; principal; 2025-03-20 17:45)
DX: K63.1 Perforation of intestine (nontraumatic) (principal); G93.41 Metabolic encephalopathy; K31.811 Angiodysplasia of stomach and duodenum with bleeding; I63.40 Cerebral infarction due to embolism of unspecified cerebral artery; J18.9 Pneumonia, unspecified organism; J69.0 Pneumonitis due to inhalation of food and vomit; K65.9 Peritonitis, unspecified; K55.21 Angiodysplasia of colon with hemorrhage; I13.0 Hypertensive heart and chronic kidney disease with heart failure and stage 1 through stage 4 chronic kidney disease, or unspecified chronic kidney disease; N17.9 Acute kidney failure, unspecified; D62 Acute posthemorrhagic anemia; E51.9 Thiamine deficiency, unspecified; E87.20 Acidosis, unspecified; I48.19 Other persistent atrial fibrillation; I50.30 Unspecified diastolic (congestive) heart failure; K56.7 Ileus, unspecified; L03.114 Cellulitis of left upper limb; Q27.30 Arteriovenous malformation, site unspecified; R47.01 Aphasia; K56.609 Unspecified intestinal obstruction, unspecified as to partial versus complete obstruction; F05 Delirium due to known physiological condition; F01.52 Vascular dementia, unspecified severity, with psychotic disturbance; T81.41XA Infection following a procedure, superficial incisional surgical site, initial encounter; Z79.01 Long term (current) use of anticoagulants; Z79.52 Long term (current) use of systemic steroids; M35.3 Polymyalgia rheumatica; E78.5 Hyperlipidemia, unspecified; I95.9 Hypotension, unspecified; I50.9 Heart failure, unspecified; I34.0 Nonrheumatic mitral (valve) insufficiency; E53.8 Deficiency of other specified B group vitamins; E86.0 Dehydration; F10.20 Alcohol dependence, uncomplicated; F17.200 Nicotine dependence, unspecified, uncomplicated; H91.90 Unspecified hearing loss, unspecified ear; I35.8 Other nonrheumatic aortic valve disorders; F80.81 Childhood onset fluency disorder; M06.9 Rheumatoid arthritis, unspecified; N18.31 Chronic kidney disease, stage 3a; N40.0 Benign prostatic hyperplasia without lower urinary tract symptoms; R32 Unspecified urinary incontinence; Z79.899 Other long term (current) drug therapy
CPT/HCPCS: 36415; 36430; 36600; 70450; 70496; 70498; 70551; 71045; 73564; 74018; 74176; 76700; 78278; 80053; 80061; 80069; 80162; 80202; 80307; 81001; 82140; 82607; 82746; 82803; 83036; 83605; 83735; 84100; 84145; 84425; 84439; 84443; 84484; 84703; 85014; 85018; 85025; 85384; 85610; 85652; 85730; 86140; 86331; 86635; 86695; 86696; 86780; 86850; 86880; 86900; 86901; 86923; 86927; 86965; 87040; 87077; 87086; 87186; 92610; 93005; 93306; 93970; 93971; 94640; 95816; 96361; 96365; 96366; 96375; 97162; 99285; A4217; A4641; A4649; A9560; J0131; J0283; J1100; J1200; J1644; J1938; J2250; J2270; J2470; J2543; J2598; J2704; J3010; J3370; J3373; J3375; J3420; J3475; J3480; J3490; J7030; J7050; J7120; J7512; J7999; P9016; P9035; P9060; Q9967; A9270; J1805; J1920

== ENCOUNTER → 2025-04-22 | Outpatient (CLI) | payer MEDICARE, SELFPAY ==
[2025-04-22 08:45] LABS: Basophils # (Auto) 0.1 Thou/mm3 (0.0-0.2); Basophils % (Auto) 2 % (0-2.5); Eosinophils # (Auto) 0.1 Thou/mm3 (0.0-0.5); Eosinophils % (Auto) 3 % (0-10); Hematocrit 32.8 % (41.0-53.0); Hemoglobin 10.4 g/dL (13.5-16.0); Immature Granulocytes Auto 0.02 Thou/mm3 (0.00-0.00); Lymphocytes # (Auto) 1.6 Thou/mm3 (1.0-4.8); Lymphocytes % (Auto) 39 % (10-50); Mean Corpuscular HGB Conc 31.7 g/dl (31.0-37.0); Mean Corpuscular Hemoglobin 29.4 pg (25.0-35.0); Mean Corpuscular Volume 93 fL (80-100); Monocytes # (Auto) 0.5 Thou/mm3 (0.0-0.8); Monocytes % (Auto) 12 % (0-12); Neutrophils # (Auto) 1.8 Thou/mm3 (1.8-7.7); Neutrophils % (Auto) 45 % (37-80); Nucleated Red Blood Cell # 0.00 Thou/mm3 (0.00-0.00); Nucleated Red Blood Cell % 0 /100 WBC (0); Platelet Count 194 Thou/mm3 (140-440); RDW Standard Deviation 54.5 fL (35.1-43.9); Red Blood Count 3.54 Miln/mm3 (4.50-5.90); White Blood Count 4.1 Thou/mm3 (3.8-10.6)
[2025-04-22 09:04] LABS: Sed Rate (ESR) 32 mm/hr (0-20)
[2025-04-22 09:13] LABS: Alanine Aminotransferase 12 U/L (10-49); Albumin, Serum 3.9 gm/dL (3.4-4.8); Albumin/Globulin Ratio 1.3 (1.2-2.2); Alkaline Phosphatase 75 U/L (46-116); Anion Gap 10 (7-16); Aspartate Amino Transferase 24 U/L (0-34); BUN/Creatinine Ratio 13 Ratio (12-20); Bilirubin,Total 0.4 mg/dL (0.3-1.2); Blood Urea Nitrogen 21 mg/dL (9-23); C-Reactive Protein < 0.5 mg/dL (0.0-0.9); Calcium 9.5 mg/dL (8.3-10.6); Calcium (Corrected) 9.6 mg/dL (8.5-10.1); Carbon Dioxide 26.1 mMol/L (20.0-31.0); Chloride 106 mMol/L (98-107); Creatinine (Component) 1.6 mg/dL (0.6-1.3); Globulin 3.0 gm/dL (2.3-3.5); Glucose 91 mg/dL (74-106); Osmolality,Calculated 286 (275-295); Potassium 4.9 mMol/L (3.4-5.1); Sodium 142 mMol/L (136-145); Total Protein 6.9 gm/dL (5.7-8.2); eGFR 43 See Note
== END | disposition home or self-care (01) ==
LOC: COPL 06:57
PROVIDERS: PCP Student in an Organized Health Care Education/Training Program; Referring Provider Student in an Organized Health Care Education/Training Program; Visit Provider Student in an Organized Health Care Education/Training Program
DX: K92.2 Gastrointestinal hemorrhage, unspecified (principal); I48.91 Unspecified atrial fibrillation; I10 Essential (primary) hypertension; M35.3 Polymyalgia rheumatica
CPT/HCPCS: 36415; 80053; 85025; 85652; 86140

== ENCOUNTER → 2025-05-19 | Outpatient (CLI) | payer MEDICARE, SELFPAY ==
[2025-05-19 09:23] LABS: Basophils # (Auto) 0.1 Thou/mm3 (0.0-0.2); Basophils % (Auto) 1 % (0-2.5); Eosinophils # (Auto) 0.3 Thou/mm3 (0.0-0.5); Eosinophils % (Auto) 4 % (0-10); Hematocrit 32.8 % (41.0-53.0); Hemoglobin 10.5 g/dL (13.5-16.0); Immature Granulocytes Auto 0.03 Thou/mm3 (0.00-0.00); Lymphocytes # (Auto) 1.5 Thou/mm3 (1.0-4.8); Lymphocytes % (Auto) 24 % (10-50); Mean Corpuscular HGB Conc 32.0 g/dl (31.0-37.0); Mean Corpuscular Hemoglobin 29.6 pg (25.0-35.0); Mean Corpuscular Volume 92 fL (80-100); Monocytes # (Auto) 0.8 Thou/mm3 (0.0-0.8); Monocytes % (Auto) 12 % (0-12); Neutrophils # (Auto) 3.6 Thou/mm3 (1.8-7.7); Neutrophils % (Auto) 57 % (37-80); Nucleated Red Blood Cell # 0.00 Thou/mm3 (0.00-0.00); Nucleated Red Blood Cell % 0 /100 WBC (0); Platelet Count 162 Thou/mm3 (140-440); RDW Standard Deviation 51.0 fL (35.1-43.9); Red Blood Count 3.55 Miln/mm3 (4.50-5.90); White Blood Count 6.2 Thou/mm3 (3.8-10.6)
[2025-05-19 09:36] LABS: Alanine Aminotransferase 11 U/L (10-49); Albumin, Serum 4.2 gm/dL (3.4-4.8); Albumin/Globulin Ratio 1.6 (1.2-2.2); Alkaline Phosphatase 69 U/L (46-116); Anion Gap 11 (7-16); Aspartate Amino Transferase 19 U/L (0-34); BUN/Creatinine Ratio 12 Ratio (12-20); Bilirubin,Total 0.4 mg/dL (0.3-1.2); Blood Urea Nitrogen 22 mg/dL (9-23); Calcium 9.0 mg/dL (8.3-10.6); Calcium (Corrected) 9.0 mg/dL (8.5-10.1); Carbon Dioxide 23.8 mMol/L (20.0-31.0); Cardiac Risk Estimate 2.6 RATIO (4.0-6.7); Chloride 107 mMol/L (98-107); Cholesterol 76 mg/dL (132-200); Creatinine (Component) 1.8 mg/dL (0.6-1.3); Globulin 2.6 gm/dL (2.3-3.5); Glucose 114 mg/dL (74-106); HDL Cholesterol 29 mg/dL (40-60); LDL Cholesterol,Calculated 37 mg/dL (0-130); Osmolality,Calculated 287 (275-295); Potassium 4.6 mMol/L (3.4-5.1); Sodium 142 mMol/L (136-145); Total Protein 6.8 gm/dL (5.7-8.2); Triglycerides 50 mg/dL (30-150); eGFR 38 See Note
[2025-05-19 10:06] LABS: Glucose Estimated Average 100 mg/dL (80-131); Hemoglobin A1C 5.1 % Hgb (4.8-6.0)
[2025-05-19 10:11] LABS: Sed Rate (ESR) 26 mm/hr (0-20)
== END | disposition home or self-care (01) ==
LOC: COPL 08:14
PROVIDERS: PCP Family Medicine; Referring Provider Student in an Organized Health Care Education/Training Program; Visit Provider Student in an Organized Health Care Education/Training Program
DX: E78.00 Pure hypercholesterolemia, unspecified (principal); E11.9 Type 2 diabetes mellitus without complications; I11.0 Hypertensive heart disease with heart failure; M35.3 Polymyalgia rheumatica
CPT/HCPCS: 36415; 80053; 80061; 83036; 85025; 85652

== ENCOUNTER → 2025-06-21 | Outpatient (CLI) | payer MEDICARE, SELFPAY ==
[2025-06-21 16:53] LABS: Sed Rate (ESR) 10 mm/hr (0-20)
[2025-06-21 17:13] LABS: C-Reactive Protein 1.6 mg/dL (0.0-0.9)
== END | disposition home or self-care (01) ==
LOC: COPL 15:14
PROVIDERS: PCP Family Medicine; Referring Provider Psychiatry & Neurology Neurology; Visit Provider Psychiatry & Neurology Neurology
DX: M31.6 Other giant cell arteritis (principal)
CPT/HCPCS: 36415; 85652; 86140

== ENCOUNTER → 2025-07-01 | Outpatient (CLI) | payer MEDICARE, SELFPAY ==
[2025-07-01 08:36] LABS: Basophils # (Auto) 0.1 Thou/mm3 (0.0-0.2); Basophils % (Auto) 1 % (0-2.5); Eosinophils # (Auto) 0.2 Thou/mm3 (0.0-0.5); Eosinophils % (Auto) 4 % (0-10); Hematocrit 33.2 % (41.0-53.0); Hemoglobin 10.4 g/dL (13.5-16.0); Immature Granulocytes Auto 0.02 Thou/mm3 (0.00-0.00); Lymphocytes # (Auto) 1.3 Thou/mm3 (1.0-4.8); Lymphocytes % (Auto) 26 % (10-50); Mean Corpuscular HGB Conc 31.3 g/dl (31.0-37.0); Mean Corpuscular Hemoglobin 28.8 pg (25.0-35.0); Mean Corpuscular Volume 92 fL (80-100); Monocytes # (Auto) 0.5 Thou/mm3 (0.0-0.8); Monocytes % (Auto) 10 % (0-12); Neutrophils # (Auto) 3.1 Thou/mm3 (1.8-7.7); Neutrophils % (Auto) 60 % (37-80); Nucleated Red Blood Cell # 0.00 Thou/mm3 (0.00-0.00); Nucleated Red Blood Cell % 0 /100 WBC (0); Platelet Count 150 Thou/mm3 (140-440); RDW Standard Deviation 50.6 fL (35.1-43.9); Red Blood Count 3.61 Miln/mm3 (4.50-5.90); White Blood Count 5.3 Thou/mm3 (3.8-10.6)
[2025-07-01 08:54] LABS: Folate 11.56 ng/mL (>5.38); Vitamin B12 420 pg/mL (211-911)
[2025-07-01 08:57] LABS: Ferritin 58 ng/mL (10.5-307.3); Iron 41 mcg/dL (65-175); Percent Iron Saturation 14 % (20-55); Total Iron Binding Capacity 281 mcg/dL (250-425); Unsaturated Iron Binding 240 (225-295)
[2025-07-01 09:12] LABS: Alanine Aminotransferase 26 U/L (10-49); Albumin, Serum 4.4 gm/dL (3.4-4.8); Albumin/Globulin Ratio 1.5 (1.2-2.2); Alkaline Phosphatase 71 U/L (46-116); Anion Gap 10 (7-16); Aspartate Amino Transferase 24 U/L (0-34); BUN/Creatinine Ratio 14 Ratio (12-20); Bilirubin,Total 0.5 mg/dL (0.3-1.2); Blood Urea Nitrogen 21 mg/dL (9-23); Calcium 9.0 mg/dL (8.3-10.6); Calcium (Corrected) 9.0 mg/dL (8.5-10.1); Carbon Dioxide 26.0 mMol/L (20.0-31.0); Chloride 108 mMol/L (98-107); Creatinine (Component) 1.5 mg/dL (0.6-1.3); Globulin 2.9 gm/dL (2.3-3.5); Glucose 106 mg/dL (74-106); Osmolality,Calculated 289 (275-295); Potassium 4.6 mMol/L (3.4-5.1); Sodium 144 mMol/L (136-145); Total Protein 7.3 gm/dL (5.7-8.2); eGFR 47 See Note
== END | disposition home or self-care (01) ==
LOC: COPL 07:53
PROVIDERS: PCP Student in an Organized Health Care Education/Training Program; Referring Provider Student in an Organized Health Care Education/Training Program; Visit Provider Student in an Organized Health Care Education/Training Program
DX: N18.32 Chronic kidney disease, stage 3b (principal); D63.1 Anemia in chronic kidney disease
CPT/HCPCS: 36415; 80053; 82607; 82728; 82746; 83540; 83550; 85025

== ENCOUNTER → 2025-07-19 | Outpatient (BNVA) | payer MEDICARE, SELFPAY | END | disposition home or self-care (01) | PROVIDERS: PCP Family Medicine; Referring Provider Family Medicine; Visit Provider Urology | DX: C61 Malignant neoplasm of prostate (principal); I48.91 Unspecified atrial fibrillation; I12.9 Hypertensive chronic kidney disease with stage 1 through stage 4 chronic kidney disease, or unspecified chronic kidney disease; E11.22 Type 2 diabetes mellitus with diabetic chronic kidney disease; N18.9 Chronic kidney disease, unspecified; Z87.891 Personal history of nicotine dependence | CPT/HCPCS: 81003; 99212; G0463 ==